=== PATIENT | female | born 1940 | race Caucasian/White ===

== ENCOUNTER 2017-08-14 15:51 | Emergency (ER) | payer MEDICARE ==
[~2017-08-14] VITALS: Ht 162.6 cm; Wt 98.9 kg
--- OUTSIDE RECORDS SUMMARY | 2017-08-14 15:54 | XMS REPORT ---
Author Author [facility] Address Unknown Phone Unavailable Care Team Providers Care Instrument And Control Technician Name Role Phone AISHA CHAN Unavailable Unavailable Problems This patient has no known problems. Allergies, Adverse Reactions, Alerts This patient has no known allergies or adverse reactions. Medications This patient has no known medications. Results Test Description Test Time Test Comments Text Results Atomic Results Result Comments POCT-GLUCOSE METER 2016-11-16 11:56:00 POC-GLUCOSE METER (BEAKER) (test xwcd=0317) 369 mg/dL 70-110 Notified BRENDA CORTEZ/ TESTED AT [address] [address] HEMOGLOBIN [id number] 11:51:00* Test Item Value Reference Range Comments HEMOGLOBIN A1C (BEAKER) (test zajt=188) 14.8 % 4.3-6.1 POCT-GLUCOSE [id number] 08:28:00* Test Item Value Reference Range Comments POC-GLUCOSE METER (BEAKER) (test zmnj=1008) 267 mg/dL 70-110 TESTED AT [address] [address] [id number] 07:24:00* Test Item Value Reference Range Comments PHOSPHORUS (BEAKER) (test bliv=258) 2.6 mg/dL 2.3-4.7 [id number] 07:24:00* Test Item Value Reference Range Comments MAGNESIUM (BEAKER) (test sqjg=490) 2.0 mg/dL 1.6-2.6 BASIC METABOLIC [id number] 07:24:00* Test Item Value Reference Range Comments SODIUM (BEAKER) (test twzk=890) 138 meq/L 136-145 POTASSIUM (BEAKER) (test gfpe=586) 4.1 meq/L 3.5-5.1 CHLORIDE (BEAKER) (test sgxi=051) 109 meq/L 98-107 CO2 (BEAKER) (test szjt=615) 22 meq/L 22-29 BLOOD UREA NITROGEN (BEAKER) (test jyvf=707) 13 mg/dL 7-21 CREATININE (CECY) (test uxym=374) 1.02 mg/dL 0.57-1.25 GLUCOSE RANDOM (CECY) (test ajdq=665) 267 mg/dL 70-105 CALCIUM (STACIEAKER) (test azkr=010) 8.6 mg/dL 8.4-10.2 EGFR (CECY) (test ytki=7184) 53 mL/min/1.73 sq m ESTIMATED GFR IS NOT ACCURATE CREATININE CLEARANCE IN PREDICTING GLOMERULAR FILTRATION RATE. ESTIMATED GFR IS NOT APPLICABLE FOR DIALYSIS PATIENTS. CREATINE KINASE (CK), TOTAL AND [id number] 07:24:00* Test Item Value Reference Range Comments CREATINE KINASE TOTAL (CECY) (test icui=397) 39 U/L 29-200 CREATINE KINASE-MB (CECY) (test ppkm=099) 1.2 ng/mL 0.0-6.6 CREATINE KINASE-MB INDEX (CECY) (test xcan=875) 3.1 % Effective 05/29/2014: CK-MB Reference Range ChangeNew: 0.0-6.6 Previous: 0.0- 4.9CK-MB Reference Range:<6.7 Normal6.7-10.0 Borderline>10.0 AbnormalTROPONIN [id number] 07:11:00* Test Item Value Reference Range Comments TROPONIN I (CECY) (test rqdz=206) < ng/mL 0.00-0.03 Effective 05/29/2014: Reference Range ChangeNew: 0.00-0.03 Previous 0.00- 0.15Troponin I (TnI) levels must be interpreted in the context of the presenting symptoms and the clinical findings. Elevated TnI levels indicate myocardial damage, but are not specific for ischemic heart disease. Elevated TnI levels are seen in patients with other cardiac conditions (including myocarditis and congestive heart failure), and slight TnI elevations occur in patients with other conditions, including sepsis, renal failure, acidosis, acute neurological disease, and persistent tachyarrhythmia.POCT-GLUCOSE [id number] 21:38:00* Test Item Value Reference Range Comments POC-GLUCOSE METER (CECY) (test qrhb=2941) 322 mg/dL 70-110 Notified BRENDA CORTEZ/ TESTED AT [facility] [address] [address] POCT-GLUCOSE [id number] 17:17:00* Test Item Value Reference Range Comments POC-GLUCOSE METER (BEAKER) (test ezmp=8652) 266 mg/dL 70-[address] [facility] [address] [address] BASIC METABOLIC [id number] 15:42:00* Test Item Value Reference Range Comments SODIUM (BEAKER) (test itxc=798) 137 meq/L 136-145 POTASSIUM (BEAKER) (test yooo=452) 4.1 meq/L 3.5-5.1 CHLORIDE (BEAKER) (test lgzp=499) 106 meq/L 98-107 CO2 (BEAKER) (test abrh=454) 21 meq/L 22-29 BLOOD UREA NITROGEN (BEAKER) (test zjps=992) 14 mg/dL 7-21 CREATININE (BEAKER) (test dcbi=771) 1.17 mg/dL 0.57-1.25 GLUCOSE RANDOM (BEAKER) (test ihig=370) 372 mg/dL 70-105 CALCIUM (BEAKER) (test ivyd=038) 8.6 mg/dL 8.4-10.2 EGFR (BEAKER) (test qxcm=4021) 45 mL/min/1.73 sq m ESTIMATED GFR IS NOT ACCURATE CREATININE CLEARANCE IN PREDICTING GLOMERULAR FILTRATION RATE. ESTIMATED GFR IS NOT APPLICABLE FOR DIALYSIS PATIENTS. CREATINE KINASE (CK), TOTAL AND [id number] 15:27:00* Test Item Value Reference Range Comments CREATINE KINASE TOTAL (BEAKER) (test posi=882) 51 U/L 29-200 CREATINE KINASE-MB (BEAKER) (test pmuh=416) 1.6 ng/mL 0.0-6.6 CREATINE KINASE-MB INDEX (BEAKER) (test yvov=022) 3.1 % Effective 05/29/2014: CK-MB Reference Range ChangeNew: 0.0-6.6 Previous: 0.0- 4.9CK-MB Reference Range:<6.7 Normal6.7-10.0 Borderline>10.0 AbnormalTROPONIN [id number] 15:27:00* Test Item Value Reference Range Comments TROPONIN I (BEAKER) (test eiuv=517) 0.01 ng/mL 0.00-0.03 Effective 05/29/2014: Reference Range ChangeNew: 0.00-0.03 Previous 0.00- 0.15Troponin I (TnI) levels must be interpreted in the context of the presenting symptoms and the clinical findings. Elevated TnI levels indicate myocardial damage, but are not specific for ischemic heart disease. Elevated TnI levels are seen in patients with other cardiac conditions (including myocarditis and congestive heart failure), and slight TnI elevations occur in patients with other conditions, including sepsis, renal failure, acidosis, acute neurological disease, and persistent tachyarrhythmia.CBC W/PLT COUNT & AUTO [id number] 14:49:00* Test Item Value Reference Range Comments WHITE BLOOD CELL COUNT (BEAKER) (test udcf=949) 6.6 K/ L 4.0-10.0 RED BLOOD CELL COUNT (BEAKER) (test soej=011) 3.99 M/ L 4.00-5.00 HEMOGLOBIN (BEAKER) (test vmng=328) 13.1 GM/DL 12.0-15.0 HEMATOCRIT (BEAKER) (test xyqi=938) 37.5 % 36.0-45.0 MEAN CORPUSCULAR VOLUME (BEAKER) (test wdwb=991) 94.1 fL 82.0-99.0 MEAN CORPUSCULAR HEMOGLOBIN (BEAKER) (test gbtj=409) 32.8 pg 27.0-33.0 MEAN CORPUSCULAR HEMOGLOBIN CONC (BEAKER) (test aarx=636) 34.9 GM/DL 32.0- 36.0 RED CELL DISTRIBUTION WIDTH (BEAKER) (test nirl=081) 14.1 % 10.3-14.2 PLATELET COUNT (BEAKER) (test anle=817) 210 K/CU MM 150-430 MEAN PLATELET VOLUME (BEAKER) (test zqia=110) 6.7 fL 6.5-10.5 NUCLEATED RED BLOOD CELLS (BEAKER) (test gtap=728) 0 /100 WBC 0-0 NEUTROPHILS RELATIVE PERCENT (BEAKER) (test uitc=522) 54 % LYMPHOCYTES RELATIVE PERCENT (BEAKER) (test wcyy=971) 36 % MONOCYTES RELATIVE PERCENT (BEAKER) (test iqnm=978) 7 % EOSINOPHILS RELATIVE PERCENT (BEAKER) (test ykve=725) 2 % BASOPHILS RELATIVE PERCENT (BEAKER) (test igbl=167) 1 % NEUTROPHILS ABSOLUTE COUNT (BEAKER) (test jzkh=022) 3.55 K/ L 1.80-8.00 LYMPHOCYTES ABSOLUTE COUNT (BEAKER) (test wyfb=836) 2.41 K/ L 1.48-4.50 MONOCYTES ABSOLUTE COUNT (BEAKER) (test jqvv=889) 0.45 K/ L 0.00-1.30 EOSINOPHILS ABSOLUTE COUNT (BEAKER) (test etcj=195) 0.16 K/ L 0.00-0.50 BASOPHILS ABSOLUTE COUNT (BEAKER) (test lzkx=492) 0.05 K/ L 0.00-0.20 0.00URINALYSIS W/ REFLEX URINE [id number] 13:22:00* Test Item Value Reference Range Comments COLOR (BEAKER) (test begu=521) Light Yellow CLARITY (BEAKER) (test xaok=496) Clear SPECIFIC GRAVITY UA (BEAKER) (test fiyz=561) 1.015 1.001-1.035 PH UA (BEAKER) (test wnew=846) 5.0 5.0-8.0 PROTEIN UA (BEAKER) (test otlm=705) Negative Negative GLUCOSE UA (BEAKER) (test ecny=913) >1000 mg/dL Negative KETONES UA (BEAKER) (test angf=571) Negative Negative BILIRUBIN UA (BEAKER) (test icdc=133) Negative Negative BLOOD UA (BEAKER) (test tdgg=556) Negative Negative NITRITE UA (BEAKER) (test mlug=822) Negative Negative LEUKOCYTE ESTERASE UA (BEAKER) (test rrbt=291) Negative Negative UROBILINOGEN UA (BEAKER) (test cvcd=821) 0.2 mg/dL 0.2-1.0 RBC UA (BEAKER) (test ekrp=698) < /HPF WBC UA (BEAKER) (test axrv=259) 2 /HPF MUCUS (BEAKER) (test hioq=3478) Rare SQUAMOUS EPITHELIAL (BEAKER) (test qcst=993) 1 /HPF SOURCE(BEAKER) (test hnea=7931) POCT-GLUCOSE [id number] 13:02:00* Test Item Value Reference Range Comments POC-GLUCOSE METER (BEAKER) (test aixi=3998) 367 mg/dL 70-110 Notified BRENDA CORTEZ/ TESTED AT [place] [id number] URINALYSIS WITHOUT [id number] 09:00:00* Test Item Value Reference Range Comments COLOR (BEAKER) (test yrqc=165) Light Yellow CLARITY (BEAKER) (test izer=341) Clear SPECIFIC GRAVITY UA (BEAKER) (test aoqc=717) 1.010 1.001-1.035 PH UA (BEAKER) (test ggva=737) 5.0 5.0-8.0 PROTEIN UA (BEAKER) (test fmuc=435) 30 mg/dL Negative GLUCOSE UA (BEAKER) (test unhi=843) >1000 mg/dL Negative KETONES UA (BEAKER) (test tbcq=782) Negative Negative BILIRUBIN UA (BEAKER) (test dxtd=371) Negative Negative BLOOD UA (BEAKER) (test mweg=578) Negative Negative NITRITE UA (BEAKER) (test vmfu=432) Negative Negative LEUKOCYTE ESTERASE UA (BEAKER) (test psdi=376) Negative Negative UROBILINOGEN UA (BEAKER) (test tkpp=215) 0.2 mg/dL 0.2-1.0 SOURCE(BEAKER) (test lmme=0706) POCT-GLUCOSE [id number] 08:09:00* Test Item Value Reference Range Comments POC-GLUCOSE METER (BEAKER) (test wonm=8484) 375 mg/dL 70-110 Notified BRENDA CORTEZ/ TESTED AT [place] [address] POCT-GLUCOSE [id number] 04:30:00* Test Item Value Reference Range Comments POC-GLUCOSE METER (BEAKER) (test fuuq=7347) 410 mg/dL 70-110 TESTED AT [place] [id number] BASIC METABOLIC [id number] 03:58:00* Test Item Value Reference Range Comments SODIUM (BEAKER) (test tdlx=372) 136 meq/L 136-145 POTASSIUM (BEAKER) (test fhhd=428) 3.6 meq/L 3.5-5.1 CHLORIDE (BEAKER) (test ppiw=905) 108 meq/L 98-107 CO2 (BEAKER) (test ivyi=773) 18 meq/L 22-29 BLOOD UREA NITROGEN (BEAKER) (test upln=557) 18 mg/dL 7-21 CREATININE (BEAKER) (test pevv=456) 1.11 mg/dL 0.57-1.25 GLUCOSE RANDOM (BEAKER) (test szsy=321) 225 mg/dL 70-105 CALCIUM (BEAKER) (test pflx=569) 8.4 mg/dL 8.4-10.2 EGFR (BEAKER) (test fhkp=2020) 48 mL/min/1.73 sq m ESTIMATED GFR IS NOT ACCURATE CREATININE CLEARANCE IN PREDICTING GLOMERULAR FILTRATION RATE. ESTIMATED GFR IS NOT APPLICABLE FOR DIALYSIS PATIENTS. BLOOD GAS, [id number] 02:41:00* Test Item Value Reference Range Comments PH VENOUS (BEAKER) (test zfsf=576) 7.37 7.32-7.42 PCO2 VENOUS (BEAKER) (test iutr=981) 44 mmHg 41-51 PO2 VENOUS (BEAKER) (test tuxr=668) 40 mmHg 25-40 O2 SATURATION VENOUS (BEAKER) (test tpso=457) 73.0 % 40.0-70.0 HCO3 VENOUS (BEAKER) (test ybzj=218) 25 mmol/L 21-29 BASE EXCESS VENOUS (BEAKER) (test zaaf=289) -0.8 mmol/L -2.0-3.0 PATIENT TEMPERATURE (BEAKER) (test juxj=2033) 37.0 C FIO2 (BEAKER) (test vnnp=6091) 21.0 % BASIC METABOLIC [id number] 02:13:00* Test Item Value Reference Range Comments SODIUM (BEAKER) (test gpbx=314) 132 meq/L 136-145 POTASSIUM (BEAKER) (test krno=747) 5.3 meq/L 3.5-5.1 Specimen moderately hemolyzed CHLORIDE (BEAKER) (test ihbe=128) 100 meq/L 98-107 CO2 (BEAKER) (test rnon=616) 18 meq/L 22-29 BLOOD UREA NITROGEN (BEAKER) (test drsw=338) 20 mg/dL 7-21 CREATININE (BEAKER) (test ljwz=852) 1.50 mg/dL 0.57-1.25 Specimen moderately hemolyzed GLUCOSE RANDOM (BEAKER) (test hejq=925) 489 mg/dL 70-105 CALCIUM (BEAKER) (test gifh=630) 9.1 mg/dL 8.4-10.2 EGFR (BEAKER) (test uzcr=2771) 34 mL/min/1.73 sq m ESTIMATED GFR IS NOT ACCURATE CREATININE CLEARANCE IN PREDICTING GLOMERULAR FILTRATION RATE. ESTIMATED GFR IS NOT APPLICABLE FOR DIALYSIS PATIENTS. TROPONIN [id number] 02:04:00* Test Item Value Reference Range Comments TROPONIN I (BEAKER) (test oeaz=923) 0.01 ng/mL 0.00-0.03 Effective 05/29/2014: Reference Range ChangeNew: 0.00-0.03 Previous 0.00- 0.15Troponin I (TnI) levels must be interpreted in the context of the presenting symptoms and the clinical findings. Elevated TnI levels indicate myocardial damage, but are not specific for ischemic heart disease. Elevated TnI levels are seen in patients with other cardiac conditions (including myocarditis and congestive heart failure), and slight TnI elevations occur in patients with other conditions, including sepsis, renal failure, acidosis, acute neurological disease, and persistent tachyarrhythmia.OSMOLALITY, [id number] 02:01:00* Test Item Value Reference Range Comments OSMOLALITY, SERUM (BEAKER) (test orep=686) 312 mOsm/kg 275-295 [id number] 01:57:00* Test Item Value Reference Range Comments MAGNESIUM (BEAKER) (test wuhn=096) 2.8 mg/dL 1.6-2.6 Specimen moderately hemolyzed [id number] 01:57:00* Test Item Value Reference Range Comments PHOSPHORUS (BEAKER) (test ygam=997) 3.0 mg/dL 2.3-4.7 Specimen moderately hemolyzed KETONE, [id number] 01:26:00* Test Item Value Reference Range Comments KETONES, BLOOD (BEAKER) (test yntz=8922) 0.9 mmol/L <0.4 CBC W/PLT COUNT & AUTO [id number] 00:52:00* Test Item Value Reference Range Comments WHITE BLOOD CELL COUNT (BEAKER) (test imfu=204) 6.9 K/ L 4.0-10.0 RED BLOOD CELL COUNT (BEAKER) (test ftzk=462) 4.63 M/ L 4.00-5.00 HEMOGLOBIN (BEAKER) (test ohnd=962) 15.5 GM/DL 12.0-15.0 HEMATOCRIT (BEAKER) (test lbai=174) 43.3 % 36.0-45.0 MEAN CORPUSCULAR VOLUME (BEAKER) (test hpub=920) 93.6 fL 82.0-99.0 MEAN CORPUSCULAR HEMOGLOBIN (BEAKER) (test owtj=271) 33.4 pg 27.0-33.0 MEAN CORPUSCULAR HEMOGLOBIN CONC (BEAKER) (test agxg=370) 35.7 GM/DL 32.0- 36.0 RED CELL DISTRIBUTION WIDTH (BEAKER) (test krgr=636) 14.3 % 10.3-14.2 PLATELET COUNT (BEAKER) (test nnud=568) 221 K/CU MM 150-430 MEAN PLATELET VOLUME (BEAKER) (test iody=305) 7.4 fL 6.5-10.5 NUCLEATED RED BLOOD CELLS (BEAKER) (test sxka=105) 0 /100 WBC 0-0 NEUTROPHILS RELATIVE PERCENT (BEAKER) (test xlwq=943) 51 % LYMPHOCYTES RELATIVE PERCENT (BEAKER) (test txie=449) 39 % MONOCYTES RELATIVE PERCENT (BEAKER) (test nkwq=956) 7 % EOSINOPHILS RELATIVE PERCENT (BEAKER) (test ajmn=107) 2 % BASOPHILS RELATIVE PERCENT (BEAKER) (test yfiz=052) 1 % NEUTROPHILS ABSOLUTE COUNT (BEAKER) (test gscj=270) 3.49 K/ L 1.80-8.00 LYMPHOCYTES ABSOLUTE COUNT (BEAKER) (test hteu=717) 2.65 K/ L 1.48-4.50 MONOCYTES ABSOLUTE COUNT (BEAKER) (test rlxl=310) 0.47 K/ L 0.00-1.30 EOSINOPHILS ABSOLUTE COUNT (BEAKER) (test orrw=667) 0.16 K/ L 0.00-0.50 BASOPHILS ABSOLUTE COUNT (BEAKER) (test ibcg=130) 0.10 K/ L 0.00-0.20 0.00
--- OUTSIDE RECORDS SUMMARY | 2017-08-14 15:54 | XMS REPORT | Clinical Summary ---
Author Author JAMES [employer] [facility] SystemsMad[facility]CareTreeSt[facility] Address Unknown Phone Unavailable Care Team Providers Care Patient Support Assistant Name Role Phone PCP Unavailable Allergies Active Allergy Reactions Severity Noted Date Comments Atorvastatin Calcium Other (See Comments) 11/14/2016 Vitamin D may have been low at the time. Choline Fenofibrate Other (See Comments) 11/14/2016 Atorvastatin 08/31/2014 Lisinopril 08/31/2014 cough Niacin Preparations 08/31/2014 Leg cramps Penicillins 08/31/2014 Pravastatin 08/31/2014 Waexufq-Dsi-Pyn Reductase 08/31/2014 Inhibitors Fenofibric Acid (Choline) 08/31/2014 Ezetimibe 08/31/2014 Current Medications Prescription Sig. Disp. Refills Start End Date Status Date aspirin 81 MG EC tablet Take 81 mg by mouth Active daily. nitroglycerin (NITROSTAT) Place 0.4 mg under the Active 0.4 MG SL tablet tongue every 5 (five) minutes as needed for Chest pain. Put 1 pill under tongue every 5min as needed for chest pain.No more than 3 doses in 15min.Call 911 if pain is unrelieved 5min after 1st dose clopidogrel (PLAVIX) 75 Take 75 mg by mouth Active mg tablet daily. alendronate (FOSAMAX) 35 Take 35 mg by mouth every Active MG tablet 7 days. Take in the morning with a full glass of water, on an empty stomach, and do not take anything else by mouth or lie down for the next 30 min. atenolol (TENORMIN) 25 MG Take 25 mg by mouth Active tablet daily. hydrochlorothiazide Take 25 mg by mouth every Active (HYDRODIURIL) 25 MG other day . tablet omega-3 acid ethyl esters Take 2 g by mouth 2 (two) Active (LOVAZA) 1 gram capsule times daily. omeprazole (PRILOSEC) 40 Take 40 mg by mouth Active MG capsule daily. cilostazol (PLETAL) 100 Take 100 mg by mouth 2 Active MG tablet (two) times daily. TiZANidine (ZANAFLEX) 4 Take 4 mg by mouth 3 Active MG capsule (three) times daily. losartan (COZAAR) 50 MG Take 50 mg by mouth Active tablet daily. venlafaxine (EFFEXOR-XR) Take 150 mg by mouth Active 150 MG 24 hr capsule daily. fluticasone (FLONASE) 50 2 sprays by Nasal route Active mcg/actuation nasal spray daily. furosemide (LASIX) 40 MG Take 40 mg by mouth Active tablet daily. gabapentin (NEURONTIN) Take 100 mg by mouth 3 Active 100 MG capsule (three) times daily. isosorbide mononitrate Take 30 mg by mouth Active (IMDUR) 30 MG 24 hr daily. tablet potassium chloride Take 10 mEq by mouth 2 Active (KLOR-CON) 10 MEQ CR (two) times daily. tablet ergocalciferol (VITAMIN Take 50,000 Units by Active D2) 50,000 unit capsule mouth twice a week. insulin glargine 100 Inject 20 Units 15 mL 0 11/17/19 Active unit/mL (3 mL) InPn subcutaneously every 17 morning. nystatin (MYCOSTATIN) Apply topically 2 (two) 30 g 0 11/17/19 Active 100,000 unit/gram powder times daily Apply under 17 18 breasts and groin. glimepiride (AMARYL) 2 MG Take 2 mg by mouth every 11/17/19 Discontin tablet morning before breakfast. 17 ued Active Problems Problem Noted Date Uncontrolled type 2 diabetes mellitus with hyperosmolarity without coma, 02/2017 without long-term current use of insulin ([facility]) Overview: a1c 14.8 (11/2016) Safia infection of genital region 11/16/2016 Type 2 diabetes mellitus with ketoacidosis without coma, without long-term 11/15/2016 current use of insulin ([facility]) CAD (coronary artery disease) 02/19/2015 Encounters Date Type Specialty Care Team Description 11/15/2016 [facility] Internal Medicine Tonja Harding Type 2 diabetes mellitus - Encounter MD Azam with ketoacidosis without 11/16/2016 Kade, Shawn Dominick, coma, without long-term MD current use of insulin Shaquille Weeks ([facility]) 11/15/2016 Orders Only General Internal Medicine after 08/13/2016 Social History Tobacco Use Types Packs/Day Years Used Date Former Smoker Comments: 16 years Alcohol Use Drinks/Week oz/Week Comments No Sex Assigned at Date Recorded Not on file Last Filed Vital Signs Vital Sign Reading Time Taken Blood Pressure 137/63 11/16/2016 11:23 AM CDT Pulse 81 11/16/2016 11:23 AM CDT Temperature 35.9 C (96.7 F) 11/16/2016 11:23 AM CDT Respiratory Rate 20 11/16/2016 11:23 AM CDT Oxygen Saturation 93% 11/16/2016 11:23 AM CDT Inhaled Oxygen - - Concentration Weight 95.3 kg (210 lb) 11/14/2016 11:21 PM CDT Height 162.6 cm (5' 4.02") 11/14/2016 11:21 PM CDT Body Mass Index 36.03 11/14/2016 11:21 PM CDT Plan of Treatment Not on file Procedures Procedure Name Priority Date/Time Associated Diagnosis Comments PLACE NEEDLE IN VEIN Routine 11/15/2016 Results for this 5:26 AM CDT procedure are in the results section. CRITICAL CARE Routine 11/15/2016 Results for this 5:26 AM CDT procedure are in the results section. after 08/13/2016 Results * POC-Glucose meter (11/16/2016 11:30 AM) Only the most recent of 7 results within the time period is included. Component Value Ref Range POC-Glucose Meter 369 (H)Comment: Notified RN /TESTED AT [facility] 70 - 110 mg/dL [address] [place], [place] [id number] Specimen [place]forming [place] [address] * Troponin I (11/16/2016 6:23 AM) Only the most recent of 3 results within the time period is included. Component Value Ref Range Troponin I <0.01 0.00 - 0.03 ng/mL Specimen Performing Laboratory Blood - Arm, Right [place] [id number] Narrative Effective 05/29/2014: Reference Range Change New: 0.00-0.03 Previous 0.00-0.15 Troponin I (TnI) levels must be interpreted in [...] failure, acidosis, acute neurological disease, and persistent tachyarrhythmia. * Phosphorus (11/16/2016 6:23 AM) Only the most recent of 2 results within the time period is included. Component Value Ref Range Phosphorus 2.6 2.3 - 4.7 mg/dL Specimen Performing Laboratory Blood - Arm, [place] [address] * Magnesium (11/16/2016 6:23 AM) Only the most recent of 2 results within the time period is included. Component Value Ref Range Magnesium 2.0 1.6 - 2.6 mg/dL Specimen Performing Laboratory Blood - Arm, [place] [address] * Hemoglobin A1c (11/16/2016 6:23 AM) Component Value Ref Range Hemoglobin A1C 14.8 (H) 4.3 - 6.1 % Specimen Performing Laboratory Blood - Arm, [place] [address] * Creatine Kinase (CK), Total and MB (11/16/2016 6:23 AM) Only the most recent of 2 results within the time period is included. Component Value Ref Range Total CK 39 29 - 200 U/L CK-MB 1.2 0.0 - 6.6 ng/mL MB Relative Index 3.1 % Specimen Performing Laboratory Blood - Arm, [address] [address] Narrative Effective 05/29/2014: CK-MB Reference Range Change New: 0.0-6.6Previous: 0.0-4.9 CK-MB Reference Range: <6.7Normal 6.7-10.0Borderline >10.0 Abnormal * Basic metabolic panel (11/16/2016 6:23 AM) Only the most recent of 4 results within the time period is included. Component Value Ref Range Sodium 138 136 - 145 meq/L Potassium 4.1 3.5 - 5.1 meq/L Chloride 109 (H) 98 - 107 meq/L CO2 22 22 - 29 meq/L BUN 13 7 - 21 mg/dL Creatinine 1.02 0.57 - 1.25 mg/dL Glucose 267 (H) 70 - 105 mg/dL Calcium 8.6 8.4 - 10.2 mg/dL EGFR 53Comment: ESTIMATED GFR IS NOT ACCURATE mL/min/1.73 sq m CREATININE CLEARANCE IN PREDICTING GLOMERULAR FILTRATION RATE. ESTIMATED GFR IS NOT APPLICABLE FOR DIALYSIS PATIENTS. Specimen Performing Laboratory Blood - Arm, Right [address] [address] * CBC with platelet count + automated diff (11/15/2016 2:39 PM) Only the most recent of 2 results within the time period is included. Component Value Ref Range WBC 6.6 4.0 - 10.0 K/ L RBC 3.99 (L) 4.00 - 5.00 M/ L Hemoglobin 13.1 12.0 - 15.0 GM/DL Hematocrit 37.5 36.0 - 45.0 % MCV 94.1 82.0 - 99.0 fL MCH 32.8 27.0 - 33.0 pg MCHC 34.9 32.0 - 36.0 GM/DL RDW 14.1 10.3 - 14.2 % Platelets 210 150 - 430 K/CU MM MPV 6.7 6.5 - 10.5 fL nRBC 0 0 - 0 /100 WBC % Neutros 54 % % Lymphs 36 % % Monos 7 % % Eos 2 % % Baso 1 % # Neutros 3.55 1.80 - 8.00 K/ L # Lymphs 2.41 1.48 - 4.50 K/ L # Monos 0.45 0.00 - 1.30 K/ L # Eos 0.16 0.00 - 0.50 K/ L # Baso 0.05 0.00 - 0.20 K/ L Specimen Performing Laboratory Blood - Line, Venous [address] [address] Narrative 0.00 * CBC with platelet count + automated diff (11/15/2016 2:39 PM) Only the most recent of 2 results within the time period is included. Specimen Performing Laboratory Blood Narrative The following orders were created for panel order CBC with platelet count + automated diff. Procedure Abnormality Status --------- - ------ CBC with platelet count ...[[id number]]AbnormalFinal result Please view results for these tests on the individual orders. * Urinalysis w/Microscopic + Reflex to Culture (11/15/2016 10:44 AM) Component Value Ref Range Color, UA Light Yellow Clarity, UA Clear Specific [place], UA 1.015 1.001 - 1.035 pH, UA 5.0 5.0 - 8.0 Protein, UA Negative Negative Glucose, UA >1000 mg/dL (A) Negative Ketones, UA Negative Negative Bilirubin, UA Negative Negative Blood, UA Negative Negative Nitrite, UA Negative Negative Leukocytes, UA Negative Negative Urobilinogen, UA 0.2 0.2 - 1.0 mg/dL RBC, UA <1 /HPF WBC, UA 2 /HPF Mucus Rare Squam Epithel, UA 1 /HPF Specimen Source Specimen Performing Laboratory Urine - Urine, [facility] Catch [address] [place] [address] * PIV Insertion (11/15/2016 5:26 AM) Narrative Tonja Harding MD 11/15/20165:26 AM History Chief Complaint Patient presents with Hyperglycemia HPI Comments: Went to OSH yesterday after a fall and told her BS was in the 400s., PCP told her to come today Patient is a 76 y.o. female presenting with hyperglycemia. The history is provided by the patient. HyperglycemiaThe onset of symptoms was 1 day ago. Severity:Severe Onset quality:Unable to specify Timing:Constant Progression:Unable to specify Chronicity:New Associated symptoms: no abdominal pain, no altered mental status, no blurred vision, no chest pain, no confusion, no dehydration, no diaphoresis, no dizziness, no dysuria, no fatigue, no fever, no increased appetite, no increased thirst, no malaise, no nausea, no polyuria, no shortness of breath, no syncope, no vomiting and no weakness Allergies Allergen Reactions Atorvastatin Calcium Other (See Comments) Vitamin D may have been low at the time. Choline Fenofibrate Other (See Comments) Lipitor [Atorvastatin] Lisinopril cough Niacin Preparations Leg cramps Penicillins Pravastatin Wgxfzok-Mgq-Xqz Reductase Inhibitors Trilipix [Fenofibric Acid (Choline)] Zetia [Ezetimibe] Past Medical History Diagnosis Date Diabetes mellitus (HCC) Hypertension Osteopenia Coronary artery disease Abdominal aortic ectasia (HCC) Depression Left anterior fascicular block PAD (peripheral artery disease) (HCC) PVC (premature ventricular contraction) BUCKY (obstructive sleep apnea) Fatty liver Hyperlipidemia BUCKY on CPAP CKD (chronic kidney disease) PVD (peripheral vascular disease) (HCC) Past Surgical History Procedure Laterality Date Vitrectomy,posterior Converted from SIS-12/08/2011 Coronary artery bypass graft Hysterectomy Eye surgery R eye Eyelid surg R & l cath Bilateral 02/19/2015 Procedure: R & L CATH;Surgeon: Brennon Bauer MD; Location: [facility];Service: Cardiology;Laterality: Bilateral; No family history on file. History Substance Use Topics Smoking status: Former Smoker Smokeless tobacco: Not on file Comment: 16years Alcohol Use: No Review of Systems Constitutional: Negative for fever, diaphoresis and fatigue. Eyes: Negative for blurred vision. Respiratory: Negative for shortness of breath. Cardiovascular: Negative for chest pain and syncope. Gastrointestinal: Negative for nausea, vomiting and abdominal pain. Endocrine: Negative for polydipsia and polyuria. Genitourinary: Negative for dysuria. Neurological: Negative for dizziness. Psychiatric/Behavioral: Negative for confusion. All other systems reviewed and are negative. Physical Exam BP 103/43 | Pulse 68 | Temp(Src) 97.8 F (36.6 C) (Oral) | Resp 20 | Ht 1.626 m (5' 4.02") | Wt 95.255 kg (210 lb) | BMI 36.03 kg/m2 | SpO2 95% Physical Exam Nursing note and vitals reviewed. Constitutional: She is oriented to person, place, and time. She appears well-developed and well-nourished. HENT: Head: Normocephalic and atraumatic. Dry oral mucosa Eyes: Conjunctivae and EOM are normal. Pupils are equal, round, and reactive to light. Right eye exhibits no discharge. Left eye exhibits no discharge. No scleral icterus. Neck: Normal range of motion. Neck supple. Cardiovascular: Normal rate, regular rhythm, normal heart sounds and intact distal pulses. No murmur heard. Pulmonary/Chest: Effort normal and breath sounds normal. No respiratory distress. Abdominal: Soft. Bowel sounds are normal. She exhibits no distension. There is no tenderness. There is no rebound and no guarding. Musculoskeletal: Normal range of motion. She exhibits no edema and no tenderness. Neurological: She is alert and oriented to person, place, and time. She has normal strength and normal reflexes. No cranial nerve deficit or sensory deficit. GCS eye subscore is 4. GCS verbal subscore is 5. GCS motor subscore is 6. Skin: Skin is dry. She is not diaphoretic. No pallor. Psychiatric: She has a normal mood and affect. Her behavior is normal. Neurologic Exam Mental Status Oriented to person, place, and time. Cranial Nerves CN III, IV, Pupils are equal, round, and reactive to light. Extraocular motions are normal. Motor Exam Strength Strength 5/5 throughout. Ortho Exam ED Course Critical Care Performed by: TONJA HARDING Authorized by: TONJA HARDING Total critical care time: 40 minutes Critical care time was exclusive of separately billable procedures and treating other patients. Critical care was necessary to treat or prevent imminent or life-threatening deterioration of the following conditions: metabolic crisis. Critical care was time spent personally by me on the following activities: development of treatment plan with patient or surrogate, evaluation of patient's response to treatment, discussions with consultants, examination of patient, obtaining history from patient or surrogate, ordering and performing treatments and interventions, ordering and review of laboratory studies, ordering and review of radiographic studies, pulse oximetry, re-evaluation of patient's condition and review of old charts. PIV Insertion Date/Time: 11/15/2016 5:24 AM Performed by: TONJA HARDING Authorized by: TONJA HARDING Preparation: Patient was prepped and draped in the usual sterile fashion. Indication: poor peripheral access. Location: left external jugular. Needle gauge: 18 Number of attempts: 1 Post-procedure: dressing applied Post-procedure CMS: normal MDM Number of Diagnoses or Management Options Type 2 diabetes mellitus with ketoacidosis without coma, without long-term current use of insulin (HCC): new and requires workup Amount and/or Complexity of Data Reviewed Clinical lab tests: ordered and reviewed Discuss the patient with other providers: yes Risk of Complications, Morbidity, and/or Mortality Presenting problems: high Diagnostic procedures: high Management options: high General comments: I provided medically necessary Critical Care on an emergent basis in order to prevent any sudden, clinically significant deterioration in her condition. Critical care time:____min It is my opinion that her clinical presentation, without appropriate emergent intervention has the potential to acutely impair one or more of her vital organ systems with a high probability of imminent deterioration in her condition. The time involved in the performance of separately reportable procedures or teaching time was not counted towards the critical care time that is documented here. Critical Care Total time providing critical care: 30-74 minutes Patient Progress Patient progress: improved Clinical Impression No diagnosis found. Discharge Medications Medication List ASK your doctor about these medications alendronate 35 MG tabletCommonly known as:FOSAMAX aspirin 81 MG EC tablet atenolol 25 MG tabletCommonly known as:TENORMIN cilostazol 100 MG tabletCommonly known as:PLETAL clopidogrel 75 mg tabletCommonly known as:PLAVIX fluticasone 50 mcg/actuation nasal sprayCommonly known as: FLONASE furosemide 40 MG tabletCommonly known as:LASIX gabapentin 100 MG capsuleCommonly known as:NEURONTIN glimepiride 2 MG tabletCommonly known as:AMARYL hydroCHLOROthiazide 25 MG tabletCommonly known as:HYDRODIURIL isosorbide mononitrate 30 MG 24 hr tabletCommonly known as: IMDUR losartan 50 MG tabletCommonly known as:COZAAR nitroglycerin 0.4 MG SL tabletCommonly known as:NITROSTAT omega-3 acid ethyl esters 1 gram capsuleCommonly known as: LOVAZA omeprazole 40 MG capsuleCommonly known as:PriLOSEC potassium chloride 10 MEQ CR tabletCommonly known as:KLOR-CON TiZANidine 4 MG capsuleCommonly known as:ZANAFLEX venlafaxine 150 MG 24 hr capsuleCommonly known as:EFFEXOR-XR VITAMIN D2 50,000 unit capsuleGeneric drug:ergocalciferol Plan Very mild DKA, AG closed with IVF and IV insulin X1 Discussed adm with Dr Kade Harding, Tonja Nascimento MD 11/15/16 0409 Procedure Note Mehdi Tonja Nascimento MD - 11/15/2016 4:06 AM CDT Formatting of this note may be different from the original. History Chief Complaint Patient presents with Hyperglycemia HPI Comments: Went to OSH yesterday after a fall and told her BS was in the 400s., PCP told her to come today Patient is a 76 y.o. female presenting with hyperglycemia. The history is provided by the patient. HyperglycemiaThe onset of symptoms was 1 day ago. Severity: Severe Onset quality: Unable to specify Timing: Constant Progression: Unable to specify Chronicity: New Associated symptoms: no abdominal pain, no altered mental status, no blurred vision, no chest pain, no confusion, no dehydration, no diaphoresis, no dizziness, no dysuria, no fatigue, no fever, no increased appetite, no increased thirst, no malaise, no nausea, no polyuria, no shortness of breath, no syncope, no vomiting and no weakness Allergies Allergen Reactions Atorvastatin Calcium Other (See Comments) Vitamin D may have been low at the time. Choline Fenofibrate Other (See Comments) Lipitor [Atorvastatin] Lisinopril cough Niacin Preparations Leg cramps Penicillins Pravastatin Aqcefjs-Rnw-Gno Reductase Inhibitors Trilipix [Fenofibric Acid (Choline)] Zetia [Ezetimibe] Past Medical History Diagnosis Date Diabetes mellitus (HCC) Hypertension Osteopenia Coronary artery disease Abdominal aortic ectasia (HCC) Depression Left anterior fascicular block PAD (peripheral artery disease) (HCC) PVC (premature ventricular contraction) BUCKY (obstructive sleep apnea) Fatty liver Hyperlipidemia BUCKY on CPAP CKD (chronic kidney disease) PVD (peripheral vascular disease) ([facility]) Past Surgical History Procedure Laterality Date Vitrectomy,posterior Converted from SIS-12/08/2011 Coronary artery bypass graft Hysterectomy Eye surgery R eye Eyelid surg R & l cath Bilateral 02/19/2015 Procedure: R & L CATH; Surgeon: Brennon Bauer MD; Location: [facility]; Service: Cardiology; Laterality: Bilateral; No family history on file. History Substance Use Topics Smoking status: Former Smoker Smokeless tobacco: Not on file Comment: 16 years Alcohol Use: No Review of Systems Constitutional: Negative for fever, diaphoresis and fatigue. Eyes: Negative for blurred vision. Respiratory: Negative for shortness of breath. Cardiovascular: Negative for chest pain and syncope. Gastrointestinal: Negative for nausea, vomiting and abdominal pain. Endocrine: Negative for polydipsia and polyuria. Genitourinary: Negative for dysuria. Neurological: Negative for dizziness. Psychiatric/Behavioral: Negative for confusion. All other systems reviewed and are negative. Physical Exam BP 103/43 | Pulse 68 | Temp(Src) 97.8 F (36.6 C) (Oral) | Resp 20 | Ht 1.626 m (5' 4.02") | Wt 95.255 kg (210 lb) | BMI 36.03 kg/m2 | SpO2 95% Physical Exam Nursing note and vitals reviewed. Constitutional: She is oriented to person, place, and time. She appears well- developed and well-nourished. HENT: Head: Normocephalic and atraumatic. Dry oral mucosa Eyes: Conjunctivae and EOM are normal. Pupils are equal, round, and reactive to light. Right eye exhibits no discharge. Left eye exhibits no discharge. No scleral icterus. Neck: Normal range of motion. Neck supple. Cardiovascular: Normal rate, regular rhythm, normal heart sounds and intact distal pulses. No murmur heard. Pulmonary/Chest: Effort normal and breath sounds normal. No respiratory distress. Abdominal: Soft. Bowel sounds are normal. She exhibits no distension. There is no tenderness. There is no rebound and no guarding. Musculoskeletal: Normal range of motion. She exhibits no edema and no tenderness. Neurological: She is alert and oriented to person, place, and time. She has normal strength and normal reflexes. No cranial nerve deficit or sensory deficit. GCS eye subscore is 4. GCS verbal subscore is 5. GCS motor subscore is 6. Skin: Skin is dry. She is not diaphoretic. No pallor. Psychiatric: She has a normal mood and affect. Her behavior is normal. Neurologic Exam Mental Status Oriented to person, place, and time. Cranial Nerves CN III, IV, Pupils are equal, round, and reactive to light. Extraocular motions are normal. Motor Exam Strength Strength 5/5 throughout. Ortho Exam ED Course Critical Care Performed by: TONJA HARDING Authorized by: TONJA HARDING Total critical care time: 40 minutes Critical care time was exclusive of separately billable procedures and treating other patients. Critical care was necessary to treat or prevent imminent or life-threatening deterioration of the following conditions: metabolic crisis. Critical care was time spent personally by me on the following activities: development of treatment plan with patient or surrogate, evaluation of patient' s response to treatment, discussions with consultants, examination of patient, obtaining history from patient or surrogate, ordering and performing treatments and interventions, ordering and review of laboratory studies, ordering and review of radiographic studies, pulse oximetry, re-evaluation of patient's condition and review of old charts. PIV Insertion Date/Time: 11/15/2016 5:24 AM Performed by: TONJA HARDING Authorized by: TONJA HARDING Preparation: Patient was prepped and draped in the usual sterile fashion. Indication: poor peripheral access. Location: left external jugular. Needle gauge: 18 Number of attempts: 1 Post-procedure: dressing applied Post-procedure CMS: normal MDM Number of Diagnoses or Management Options Type 2 diabetes mellitus with ketoacidosis without coma, without long-term current use of insulin (HCC): new and requires workup Amount and/or Complexity of Data Reviewed Clinical lab tests: ordered and reviewed Discuss the patient with other providers: yes Risk of Complications, Morbidity, and/or Mortality Presenting problems: high Diagnostic procedures: high Management options: high General comments: I provided medically necessary Critical Care on an emergent basis in order to prevent any sudden, clinically significant deterioration in her condition. Critical care time: ____ min It is my opinion that her clinical presentation, without appropriate emergent intervention has the potential to acutely impair one or more of her vital organ systems with a high probability of imminent deterioration in her condition. The time involved in the performance of separately reportable procedures or teaching time was not counted towards the critical care time that is documented here. Critical Care Total time providing critical care: 30-74 minutes Patient Progress Patient progress: improved Clinical Impression No diagnosis found. Discharge Medications Medication List ASK your doctor about these medications alendronate 35 MG tablet Commonly known as: FOSAMAX aspirin 81 MG EC tablet atenolol 25 MG tablet Commonly known as: TENORMIN cilostazol 100 MG tablet Commonly known as: PLETAL clopidogrel 75 mg tablet Commonly known as: PLAVIX fluticasone 50 mcg/actuation nasal spray Commonly known as: FLONASE furosemide 40 MG tablet Commonly known as: LASIX gabapentin 100 MG capsule Commonly known as: NEURONTIN glimepiride 2 MG tablet Commonly known as: AMARYL hydroCHLOROthiazide 25 MG tablet Commonly known as: HYDRODIURIL isosorbide mononitrate 30 MG 24 hr tablet Commonly known as: IMDUR losartan 50 MG tablet Commonly known as: COZAAR nitroglycerin 0.4 MG SL tablet Commonly known as: NITROSTAT omega-3 acid ethyl esters 1 gram capsule Commonly known as: LOVAZA omeprazole 40 MG capsule Commonly known as: PriLOSEC potassium chloride 10 MEQ CR tablet Commonly known as: KLOR-CON TiZANidine 4 MG capsule Commonly known as: ZANAFLEX venlafaxine 150 MG 24 hr capsule Commonly known as: EFFEXOR-XR VITAMIN D2 50,000 unit capsule Generic drug: ergocalciferol Plan Very mild DKA, AG closed with IVF and IV insulin X1 Discussed adm with Tonja Bedolla MD 11/15/16 0409 Tonja Harding MD 11/15/16 0566 * Critical Care (11/15/2016 5:26 AM) Narrative Tonja Harding MD 11/15/20165:26 AM History Chief Complaint Patient presents with Hyperglycemia HPI Comments: Went to OSH yesterday after a fall and told her BS was in the 400s., PCP told her to come today Patient is a 76 y.o. female presenting with hyperglycemia. The history is provided by the patient. HyperglycemiaThe onset of symptoms was 1 day ago. Severity:Severe Onset quality:Unable to specify Timing:Constant Progression:Unable to specify Chronicity:New Associated symptoms: no abdominal pain, no altered mental status, no blurred vision, no chest pain, no confusion, no dehydration, no diaphoresis, no dizziness, no dysuria, no fatigue, no fever, no increased appetite, no increased thirst, no malaise, no nausea, no polyuria, no shortness of breath, no syncope, no vomiting and no weakness Allergies Allergen Reactions Atorvastatin Calcium Other (See Comments) Vitamin D may have been low at the time. Choline Fenofibrate Other (See Comments) Lipitor [Atorvastatin] Lisinopril cough Niacin Preparations Leg cramps Penicillins Pravastatin Kalsjcu-Ovu-Wjt Reductase Inhibitors Trilipix [Fenofibric Acid (Choline)] Zetia [Ezetimibe] Past Medical History Diagnosis Date Diabetes mellitus (HCC) Hypertension Osteopenia Coronary artery disease Abdominal aortic ectasia (HCC) Depression Left anterior fascicular block PAD (peripheral artery disease) (HCC) PVC (premature ventricular contraction) BUCKY (obstructive sleep apnea) Fatty liver Hyperlipidemia BUCKY on CPAP CKD (chronic kidney disease) PVD (peripheral vascular disease) (HCC) Past Surgical History Procedure Laterality Date Vitrectomy,posterior Converted from SIS-12/08/2011 Coronary artery bypass graft Hysterectomy Eye surgery R eye Eyelid surg R & l cath Bilateral 02/19/2015 Procedure: R & L CATH;Surgeon: Brennon Bauer MD; Location: [facility];Service: Cardiology;Laterality: Bilateral; No family history on file. History Substance Use Topics Smoking status: Former Smoker Smokeless tobacco: Not on file Comment: 16years Alcohol Use: No Review of Systems Constitutional: Negative for fever, diaphoresis and fatigue. Eyes: Negative for blurred vision. Respiratory: Negative for shortness of breath. Cardiovascular: Negative for chest pain and syncope. Gastrointestinal: Negative for nausea, vomiting and abdominal pain. Endocrine: Negative for polydipsia and polyuria. Genitourinary: Negative for dysuria. Neurological: Negative for dizziness. Psychiatric/Behavioral: Negative for confusion. All other systems reviewed and are negative. Physical Exam BP 103/43 | Pulse 68 | Temp(Src) 97.8 F (36.6 C) (Oral) | Resp 20 | Ht 1.626 m (5' 4.02") | Wt 95.255 kg (210 lb) | BMI 36.03 kg/m2 | SpO2 95% Physical Exam Nursing note and vitals reviewed. Constitutional: She is oriented to person, place, and time. She appears well-developed and well-nourished. HENT: Head: Normocephalic and atraumatic. Dry oral mucosa Eyes: Conjunctivae and EOM are normal. Pupils are equal, round, and reactive to light. Right eye exhibits no discharge. Left eye exhibits no discharge. No scleral icterus. Neck: Normal range of motion. Neck supple. Cardiovascular: Normal rate, regular rhythm, normal heart sounds and intact distal pulses. No murmur heard. Pulmonary/Chest: Effort normal and breath sounds normal. No respiratory distress. Abdominal: Soft. Bowel sounds are normal. She exhibits no distension. There is no tenderness. There is no rebound and no guarding. Musculoskeletal: Normal range of motion. She exhibits no edema and no tenderness. Neurological: She is alert and oriented to person, place, and time. She has normal strength and normal reflexes. No cranial nerve deficit or sensory deficit. GCS eye subscore is 4. GCS verbal subscore is 5. GCS motor subscore is 6. Skin: Skin is dry. She is not diaphoretic. No pallor. Psychiatric: She has a normal mood and affect. Her behavior is normal. Neurologic Exam Mental Status Oriented to person, place, and time. Cranial Nerves CN III, IV, Pupils are equal, round, and reactive to light. Extraocular motions are normal. Motor Exam Strength Strength 5/5 throughout. Ortho Exam ED Course Critical Care Performed by: TONJA HARDING Authorized by: TONJA HARDING Total critical care time: 40 minutes Critical care time was exclusive of separately billable procedures and treating other patients. Critical care was necessary to treat or prevent imminent or life-threatening deterioration of the following conditions: metabolic crisis. Critical care was time spent personally by me on the following activities: development of treatment plan with patient or surrogate, evaluation of patient's response to treatment, discussions with consultants, examination of patient, obtaining history from patient or surrogate, ordering and performing treatments and interventions, ordering and review of laboratory studies, ordering and review of radiographic studies, pulse oximetry, re-evaluation of patient's condition and review of old charts. PIV Insertion Date/Time: 11/15/2016 5:24 AM Performed by: TONJA HARDING Authorized by: TONJA HARDING Preparation: Patient was prepped and draped in the usual sterile fashion. Indication: poor peripheral access. Location: left external jugular. Needle gauge: 18 Number of attempts: 1 Post-procedure: dressing applied Post-procedure CMS: normal MDM Number of Diagnoses or Management Options Type 2 diabetes mellitus with ketoacidosis without coma, without long-term current use of insulin (HCC): new and requires workup Amount and/or Complexity of Data Reviewed Clinical lab tests: ordered and reviewed Discuss the patient with other providers: yes Risk of Complications, Morbidity, and/or Mortality Presenting problems: high Diagnostic procedures: high Management options: high General comments: I provided medically necessary Critical Care on an emergent basis in order to prevent any sudden, clinically significant deterioration in her condition. Critical care time:____min It is my opinion that her clinical presentation, without appropriate emergent intervention has the potential to acutely impair one or more of her vital organ systems with a high probability of imminent deterioration in her condition. The time involved in the performance of separately reportable procedures or teaching time was not counted towards the critical care time that is documented here. Critical Care Total time providing critical care: 30-74 minutes Patient Progress Patient progress: improved Clinical Impression No diagnosis found. Discharge Medications Medication List ASK your doctor about these medications alendronate 35 MG tabletCommonly known as:FOSAMAX aspirin 81 MG EC tablet atenolol 25 MG tabletCommonly known as:TENORMIN cilostazol 100 MG tabletCommonly known as:PLETAL clopidogrel 75 mg tabletCommonly known as:PLAVIX fluticasone 50 mcg/actuation nasal sprayCommonly known as: FLONASE furosemide 40 MG tabletCommonly known as:LASIX gabapentin 100 MG capsuleCommonly known as:NEURONTIN glimepiride 2 MG tabletCommonly known as:AMARYL hydroCHLOROthiazide 25 MG tabletCommonly known as:HYDRODIURIL isosorbide mononitrate 30 MG 24 hr tabletCommonly known as: IMDUR losartan 50 MG tabletCommonly known as:COZAAR nitroglycerin 0.4 MG SL tabletCommonly known as:NITROSTAT omega-3 acid ethyl esters 1 gram capsuleCommonly known as: LOVAZA omeprazole 40 MG capsuleCommonly known as:PriLOSEC potassium chloride 10 MEQ CR tabletCommonly known as:KLOR-CON TiZANidine 4 MG capsuleCommonly known as:ZANAFLEX venlafaxine 150 MG 24 hr capsuleCommonly known as:EFFEXOR-XR VITAMIN D2 50,000 unit capsuleGeneric drug:ergocalciferol Plan Very mild DKA, AG closed with IVF and IV insulin X1 Discussed adm with Tonja Bedolla MD 11/15/16 2816 Procedure Note Tonja Harding MD - 11/15/2016 4:06 AM CDT Formatting of this note may be different from the original. History Chief Complaint Patient presents with Hyperglycemia HPI Comments: Went to OSH yesterday after a fall and told her BS was in the 400s., PCP told her to come today Patient is a 76 y.o. female presenting with hyperglycemia. The history is provided by the patient. HyperglycemiaThe onset of symptoms was 1 day ago. Severity: Severe Onset quality: Unable to specify Timing: Constant Progression: Unable to specify Chronicity: New Associated symptoms: no abdominal pain, no altered mental status, no blurred vision, no chest pain, no confusion, no dehydration, no diaphoresis, no dizziness, no dysuria, no fatigue, no fever, no increased appetite, no increased thirst, no malaise, no nausea, no polyuria, no shortness of breath, no syncope, no vomiting and no weakness Allergies Allergen Reactions Atorvastatin Calcium Other (See Comments) Vitamin D may have been low at the time. Choline Fenofibrate Other (See Comments) Lipitor [Atorvastatin] Lisinopril cough Niacin Preparations Leg cramps Penicillins Pravastatin Cykswuc-Aio-Gpr Reductase Inhibitors Trilipix [Fenofibric Acid (Choline)] Zetia [Ezetimibe] Past Medical History Diagnosis Date Diabetes mellitus (HCC) Hypertension Osteopenia Coronary artery disease Abdominal aortic ectasia (HCC) Depression Left anterior fascicular block PAD (peripheral artery disease) (HCC) PVC (premature ventricular contraction) BUCKY (obstructive sleep apnea) Fatty liver Hyperlipidemia BUCKY on CPAP CKD (chronic kidney disease) PVD (peripheral vascular disease) (HCC) Past Surgical History Procedure Laterality Date Vitrectomy,posterior Converted from SIS-12/08/2011 Coronary artery bypass graft Hysterectomy Eye surgery R eye Eyelid surg R & l cath Bilateral 02/19/2015 Procedure: R & L CATH; Surgeon: Brennon Bauer MD; Location: [facility]; Service: Cardiology; Laterality: Bilateral; No family history on file. History Substance Use Topics Smoking status: Former Smoker Smokeless tobacco: Not on file Comment: 16 years Alcohol Use: No Review of Systems Constitutional: Negative for fever, diaphoresis and fatigue. Eyes: Negative for blurred vision. Respiratory: Negative for shortness of breath. Cardiovascular: Negative for chest pain and syncope. Gastrointestinal: Negative for nausea, vomiting and abdominal pain. Endocrine: Negative for polydipsia and polyuria. Genitourinary: Negative for dysuria. Neurological: Negative for dizziness. Psychiatric/Behavioral: Negative for confusion. All other systems reviewed and are negative. Physical Exam BP 103/43 | Pulse 68 | Temp(Src) 97.8 F (36.6 C) (Oral) | Resp 20 | Ht 1.626 m (5' 4.02") | Wt 95.255 kg (210 lb) | BMI 36.03 kg/m2 | SpO2 95% Physical Exam Nursing note and vitals reviewed. Constitutional: She is oriented to person, place, and time. She appears well- developed and well-nourished. HENT: Head: Normocephalic and atraumatic. Dry oral mucosa Eyes: Conjunctivae and EOM are normal. Pupils are equal, round, and reactive to light. Right eye exhibits no discharge. Left eye exhibits no discharge. No scleral icterus. Neck: Normal range of motion. Neck supple. Cardiovascular: Normal rate, regular rhythm, normal heart sounds and intact distal pulses. No murmur heard. Pulmonary/Chest: Effort normal and breath sounds normal. No respiratory distress. Abdominal: Soft. Bowel sounds are normal. She exhibits no distension. There is no tenderness. There is no rebound and no guarding. Musculoskeletal: Normal range of motion. She exhibits no edema and no tenderness. Neurological: She is alert and oriented to person, place, and time. She has normal strength and normal reflexes. No cranial nerve deficit or sensory deficit. GCS eye subscore is 4. GCS verbal subscore is 5. GCS motor subscore is 6. Skin: Skin is dry. She is not diaphoretic. No pallor. Psychiatric: She has a normal mood and affect. Her behavior is normal. Neurologic Exam Mental Status Oriented to person, place, and time. Cranial Nerves CN III, IV, Pupils are equal, round, and reactive to light. Extraocular motions are normal. Motor Exam Strength Strength 5/5 throughout. Ortho Exam ED Course Critical Care Performed by: TONJA HARDING Authorized by: TONJA HARDING Total critical care time: 40 minutes Critical care time was exclusive of separately billable procedures and treating other patients. Critical care was necessary to treat or prevent imminent or life-threatening deterioration of the following conditions: metabolic crisis. Critical care was time spent personally by me on the following activities: development of treatment plan with patient or surrogate, evaluation of patient' s response to treatment, discussions with consultants, examination of patient, obtaining history from patient or surrogate, ordering and performing treatments and interventions, ordering and review of laboratory studies, ordering and review of radiographic studies, pulse oximetry, re-evaluation of patient's condition and review of old charts. PIV Insertion Date/Time: 11/15/2016 5:24 AM Performed by: TONJA HARDING Authorized by: TONJA HARDING Preparation: Patient was prepped and draped in the usual sterile fashion. Indication: poor peripheral access. Location: left external jugular. Needle gauge: 18 Number of attempts: 1 Post-procedure: dressing applied Post-procedure CMS: normal MDM Number of Diagnoses or Management Options Type 2 diabetes mellitus with ketoacidosis without coma, without long-term current use of insulin (HCC): new and requires workup Amount and/or Complexity of Data Reviewed Clinical lab tests: ordered and reviewed Discuss the patient with other providers: yes Risk of Complications, Morbidity, and/or Mortality Presenting problems: high Diagnostic procedures: high Management options: high General comments: I provided medically necessary Critical Care on an emergent basis in order to prevent any sudden, clinically significant deterioration in her condition. Critical care time: ____ min It is my opinion that her clinical presentation, without appropriate emergent intervention has the potential to acutely impair one or more of her vital organ systems with a high probability of imminent deterioration in her condition. The time involved in the performance of separately reportable procedures or teaching time was not counted towards the critical care time that is documented here. Critical Care Total time providing critical care: 30-74 minutes Patient Progress Patient progress: improved Clinical Impression No diagnosis found. Discharge Medications Medication List ASK your doctor about these medications alendronate 35 MG tablet Commonly known as: FOSAMAX aspirin 81 MG EC tablet atenolol 25 MG tablet Commonly known as: TENORMIN cilostazol 100 MG tablet Commonly known as: PLETAL clopidogrel 75 mg tablet Commonly known as: PLAVIX fluticasone 50 mcg/actuation nasal spray Commonly known as: FLONASE furosemide 40 MG tablet Commonly known as: LASIX gabapentin 100 MG capsule Commonly known as: NEURONTIN glimepiride 2 MG tablet Commonly known as: AMARYL hydroCHLOROthiazide 25 MG tablet Commonly known as: HYDRODIURIL isosorbide mononitrate 30 MG 24 hr tablet Commonly known as: IMDUR losartan 50 MG tablet Commonly known as: COZAAR nitroglycerin 0.4 MG SL tablet Commonly known as: NITROSTAT omega-3 acid ethyl esters 1 gram capsule Commonly known as: LOVAZA omeprazole 40 MG capsule Commonly known as: PriLOSEC potassium chloride 10 MEQ CR tablet Commonly known as: KLOR-CON TiZANidine 4 MG capsule Commonly known as: ZANAFLEX venlafaxine 150 MG 24 hr capsule Commonly known as: EFFEXOR-XR VITAMIN D2 50,000 unit capsule Generic drug: ergocalciferol Plan Very mild DKA, AG closed with IVF and IV insulin X1 Discussed adm with Tonja Bedolla MD 11/15/16 2512 Tonja Harding MD 11/15/16 1180 * Blood gas, venous (11/15/2016 2:33 AM) Component Value Ref Range pH, Freddy 7.37 7.32 - 7.42 pCO2, Freddy 44 41 - 51 mmHg pO2, Freddy 40 25 - 40 mmHg O2 Sat, Freddy 73.0 (H) 40.0 - 70.0 % HCO3, Freddy 25 21 - 29 mmol/L Base Excess, Freddy -0.8 -2.0 - 3.0 mmol/L Patient Temperature 37.0 C FIO2 21.0 % Specimen Performing Laboratory Blood - Line, [place] [address] * Urinalysis without Microscopic - Clean Catch (11/15/2016 2:25 AM) Component Value Ref Range Color, UA Light Yellow Clarity, UA Clear Specific [place], UA 1.010 1.001 - 1.035 pH, UA 5.0 5.0 - 8.0 Protein, UA 30 mg/dL (A) Negative Glucose, UA >1000 mg/dL (A) Negative Ketones, UA Negative Negative Bilirubin, UA Negative Negative Blood, UA Negative Negative Nitrite, UA Negative Negative Leukocytes, UA Negative Negative Urobilinogen, UA 0.2 0.2 - 1.0 mg/dL Specimen Source Specimen Performing Laboratory Urine - Urine, Clean [facility] Catch [address] [place] [id number] * ECG 12 lead (11/15/2016 12:26 AM) Specimen Performing Laboratory GE MUSE Narrative Ventricular Rate 70 BPM Atrial Rate 70 BPM P-R Interval 134 ms QRS Duration 108 ms Q-T Interval 386 ms QTC Calculation(Bazett) 416 ms P [place] 8 degrees R [place] -49 degrees T [place] -7 degrees Normal sinus rhythm Left anterior fascicular block Abnormal ECG When compared with ECG of 22-AUG-2008 17:08, No significant change was found Confirmed by Milagros BARRERA MICHAEL ([id number]) on 11/16/2016 7:08:47 AM Procedure Note Interface, External Ris In - 11/16/2016 7:08 AM CDT Ventricular Rate 70 BPM Atrial Rate 70 BPM P-R Interval 134 ms QRS Duration 108 ms Q-T Interval 386 ms QTC Calculation(Bazett) 416 ms P [place] 8 degrees R [place] -49 degrees T [place] -7 degrees Normal sinus rhythm Left anterior fascicular block Abnormal ECG When compared with ECG of 22-AUG-2008 17:08, No significant change was found Confirmed by Milagros BARRERA MICHAEL ([id number]) on 11/16/2016 7:08:47 AM * Osmolality, serum (11/15/2016 12:22 AM) Component Value Ref Range Osmolality Serum 312 (H) 275 - 295 mOsm/kg Specimen Performing Laboratory Blood [address] [address] * Ketones, serum (11/15/2016 12:22 AM) Component Value Ref Range Ketones, Blood 0.9 (H) <0.4 mmol/L Specimen Performing Laboratory Blood [address] [address] after 08/13/2016
[2017-08-14 18:16] VITALS: BP 172/90
== END 2017-08-14 18:22 | disposition home or self-care (01) ==
LOC: ER 15:51
DX: H57.12 Ocular pain, left eye (principal); H00.024 Hordeolum internum left upper eyelid; I10 Essential (primary) hypertension; E11.9 Type 2 diabetes mellitus without complications; I50.9 Heart failure, unspecified; Z95.1 Presence of aortocoronary bypass graft
CPT/HCPCS: 99282

== ENCOUNTER 2020-04-12 20:35 | Inpatient (IN) | payer MEDICARE ==
[~2020-04-12] VITALS: Ht 157.5 cm; Wt 72.7 kg
[2020-04-12] MEDS ORDERED: LEVOFLOXACIN 750MG/D5W 150ML 150 ML IV STA (20:40)
[2020-04-12] MEDS ORDERED: ONDANSETRON HCL INJ 2MG/ML 2ML 2 MG/ML VIAL IV STA (20:40)
[2020-04-12] MEDS ORDERED: KETOROLAC TROMETHAMINE 30 MG/ML VIAL IV STA (20:40)
[2020-04-12] MEDS ORDERED: SODIUM CHLORIDE 0.9% 1000ML 1,000 ML IV STA ×3 (20:40→22:15)
--- NOTE | 2020-04-12 20:44 | Emergency Department Note ---
History of Present Illnes History of Present Illness Chief Complaint: Abdominal Complaints History of Present Illness This is a 79 year old female with n/v since this AM. Per [employer] [facility], patient was in atrial fibrillation with Hr in the 90's with occ PVC's. Historian: Patient, Acquisitions Analyst/EMS Onset (how long ago): day(s) Radiation: Reports non-radiation Severity: moderate Onset quality: gradual Duration (how long): day(s) Timing of current episode: constant Progression: worsening Context: Reports recent illness Relieving factors: none Exacerbating factors: none Associated symptoms: Reports nausea/vomiting Past Medical/Family History Physician Review I have reviewed the patient's past medical and family history. Any updates have been documented here. Past Medical History Recent Fever: Yes Clinical Suspicion of Infectio: Yes Other Medical History: HIATAL HERNIA Other Surgery: LAMINECTOMY CATARACT Social History Smoking Cessation: Never Smoker Alcohol Use: None Any Illegal Drug Use: No Other Last Tetanus: NA Review of Systems Review of Systems Constitutional: Reports weakness EENTM: Reports no symptoms Cardiovascular: Reports no symptoms Respiratory: Reports no symptoms Gastrointestinal: Reports nausea, Reports vomiting Genitourinary: Reports no symptoms Musculoskeletal: Reports no symptoms Integumentary: Reports no symptoms Neurological: Reports no symptoms Psychological: Reports no symptoms Endocrine: Reports no symptoms Hematological/Lymphatic: Reports no symptoms Physical Exam Related Data Allergies: Coded Allergies: Penicillins (Verified Allergy, Mild, 08/14/17) Ultrema-Dvq-Frg Reductase Inhibitor (Verified Allergy, Mild, 08/14/17) Physical Exam CONSTITUTIONAL Constitutional: Present ill appearing HENT HENT: Present normocephalic, Present atraumatic, Present oropharynx clear/moist, Present nose normal HENT L/R: Present left ext ear normal, Present right ext ear normal EYES Eyes: Reports PERRL, Reports conjunctivae normal NECK Neck: Present ROM normal PULMONARY Pulmonary: Present effort normal, Present breath sounds normal CARDIOVASCULAR Cardiovascular: Present irregular rhythm, Present tachycardia GASTROINTESTINAL Abdominal: Present soft, Present nontender, Present bowel sounds normal GENITOURINARY Genitourinary: Present exam deferred SKIN Skin: Present warm, Present dry MUSCULOSKELETAL Musculoskeletal: Present ROM normal NEUROLOGICAL Neurological: Present alert, Present oriented x 3, Present no gross motor or sensory deficits PSYCHOLOGICAL Psychological: Present mood/affect normal, Present judgement normal Results Laboratory Lab results reviewed: Yes Laboratory comments Laboratory Tests Test 04/12/20 22:12 04/12/20 21:10 04/12/20 20:49 Urine Color Yellow (YELLOW) Urine Clarity Clear (CLEAR) Urine pH 7 (5 - 7) Urine Specific [place] 1.020 (1.010-1.025) Urine Protein Negative (NEGATIVE) Urine Glucose (UA) Negative (NEGATIVE) Urine Ketones Trace (NEGATIVE) Urine Blood Negative (NEGATIVE) Urine Nitrite Negative (NEGATIVE) Urine Bilirubin Small (NEGATIVE) Urine Urobilinogen 2 mg/dL (0.2 - 1) Urine Leukocyte Esterase Negative (NEGATIVE) Urine RBC 0-5 /HPF (0-5) Urine WBC 6-10 /HPF (0-5) Urine Epithelial Cells Few /LPF (NONE) Urine Bacteria Few /HPF (NONE) Urine Mucus Many (RARE) White Blood Count 12.98 x10e3/uL (4.8-10.8) Red Blood Count 4.36 x10e6/uL (3.6-5.1) Hemoglobin 13.4 g/dL (12.0-16.0) Hematocrit 39.9 % (34.2-44.1) Mean Corpuscular Volume 91.5 fL (81-99) Mean Corpuscular Hemoglobin 30.7 pg (28-32) Mean Corpuscular Hemoglobin Concent 33.6 g/dL (31-35) Red Cell Distribution Width 13.9 % (11.7-14.4) Platelet Count 164 x10e3/uL (140-360) Neutrophils (%) (Auto) 82.7 % (38.7-80.0) Lymphocytes (%) (Auto) 10.9 % (18.0-39.1) Monocytes (%) (Auto) 5.8 % (4.4-11.3) Eosinophils (%) (Auto) 0.0 % (0.0-6.0) Basophils (%) (Auto) 0.2 % (0.0-1.0) Neutrophils # (Auto) 10.7 (2.1-6.9) Lymphocytes # (Auto) 1.4 (1.0-3.2) Monocytes # (Auto) 0.8 (0.2-0.8) Eosinophils # (Auto) 0.0 (0.0-0.4) Basophils # (Auto) 0.0 (0.0-0.1) Absolute Immature Granulocyte (auto 0.05 x10e3/uL (0-0.1) Sodium Level 142 mmol/L (136-145) Potassium Level 3.7 mmol/L (3.5-5.1) Chloride Level 104 mmol/L (98-107) Carbon Dioxide Level 24 mmol/L (22-29) Anion Gap 17.7 mmol/L (8-16) Blood Urea Nitrogen 15 mg/dL (7-26) Creatinine 1.20 mg/dL (0.57-1.11) Estimat Glomerular Filtration Rate 44 ML/MIN (60-) BUN/Creatinine Ratio 13 (6-25) Glucose Level 169 mg/dL (74-118) Lactic Acid Level 3.3 mmol/L (0.5-2.0) Calcium Level 9.0 mg/dL (8.4-10.2) Total Bilirubin 2.2 mg/dL (0.2-1.2) Aspartate Amino Transf (AST/SGOT) 27 IU/L (5-34) Alanine Aminotransferase (ALT/SGPT) 14 IU/L (0-55) Alkaline Phosphatase 136 IU/L (40-150) Creatine Kinase 81 IU/L (29-168) Creatine Kinase MB 0.70 ng/mL (0-5.0) Troponin I 0.014 ng/mL (0-0.300) B-Type Natriuretic Peptide 803.5 pg/mL (0-100) Total Protein 6.4 g/dL (6.5-8.1) Albumin 3.0 g/dL (3.5-5.0) Globulin 3.4 g/dL (2.3-3.5) Albumin/Globulin Ratio 0.9 (0.8-2.0) Lipase 4 U/L (8-78) Imaging Imaging results reviewed: Yes Impressions [place] [address] Patient Name: SRAVAN TONY MR #: [id number] : 1940 Age/Sex: 79/F Req #: [id number] Adm Physician: FATOUMATA KELLER MD Ordered by: SANDRA RAWLS DO Report #: [id number] Location: [facility] Room/Bed: [place] [address] Procedure: [id number] CT/CT ABDOMEN/PELVIS W Exam Date: 04/12/20 Exam Time: 2138 REPORT STATUS: Signed EXAM: CT Abdomen and Pelvis WITH contrast INDICATION: Intractable nausea and vomiting COMPARISON: None. TECHNIQUE: Abdomen and pelvis were scanned utilizing a multidetector helical scanner from the lung base to the pubic symphysis after administration of IV contrast. Coronal and sagittal reformations were obtained. Routine protocol was performed. Scan was performed when during portal venous phase. IV CONTRAST: 100 mL of Isovue 370 ORAL CONTRAST: None COMPLICATIONS: None RADIATION DOSE: Total DLP: 743 mGy*cm Estimated effective dose: (DLP x 0.015 x size factor) mSv CTDIvol has been reviewed. It is below the limits set by the Radiation Protocol Committee (RPC). Dose modulation, iterative reconstruction, and/or weight based adjustment of the mA/kV was utilized to reduce the radiation dose to as low as reasonably achievable. FINDINGS: LINES and TUBES: Common bile duct stent, proximal tip at the biliary hepatic bifurcation M distal aspect of the ampulla.. LOWER THORAX: Small right pleural effusion. Mild cardiomegaly. Mitral annular calcifications. HEPATOBILIARY: No focal hepatic lesions. No biliary ductal dilation. Minimal pneumobilia. GALLBLADDER: Small layering calcified gallstone of the gallbladder fundus. No wall thickening. SPLEEN: Mild splenomegaly. Multiple benign calcified granulomata. PANCREAS: An ill-defined 5.2 cm hypodense pancreatic head mass encases the main portal vein and hepatic artery and common bile duct stent. Thin pancreatic body and tail are atrophic with 7 mm duct dilation.. ADRENALS: No adrenal nodules KIDNEYS/URETERS: Kidneys enhance symmetrically. Tiny hypodensity in the right kidney, likely benign. No hydronephrosis. No solid mass lesions. No stones. GI TRACT: Small sliding gastric hiatal hernia with mild distal esophageal wall thickening. No abnormal distention or evidence of bowel obstruction. Appendix is normal. PELVIC ORGANS/BLADDER: Hysterectomy. No adnexal masses. Urinary bladder unremarkable. LYMPH NODES: Slightly prominent subcentimeter celiac lymph nodes, and stranding/encasement of the hepatic artery. VESSELS: Main portal vein encased by a pancreatic head mass. Arterial calcifications. PERITONEUM / RETROPERITONEUM: No free air or fluid. BONES: Mild T12 vertebral body compression fracture, likely chronic.Advanced degenerative changes. Sternotomy wires. Healing right rib 8 fracture. SOFT TISSUES: Benign lower back/gluteal subcutaneous calcified granulomas.. IMPRESSION: 1. A 5.2 cm ill-defined pancreatic head mass encases the main portal vein, hepatic artery, and a common bile duct stent. The biliary duct dilation. Mild local peripancreatic/celiac adenopathy. 2. Small right pleural effusion with right basilar atelectasis. Moderate cardiomegaly and mitral annular calcific disease. 3. Small sliding gastric hiatal hernia with mild distal esophagitis. 4. Splenomegaly, suggestive of portal hypertension. 5. Mild T12 vertebral body compression fracture, likely chronic. Advanced degenerative changes in the spine. Signed by: Marcelo Mendoza DO on 04/12/2020 11:00 PM Dictated By: MARCELO MENDOZA DO 99 Transcribed By: AJAY on 04/12/202299 COPY TO: SANDRA RAWLS DO~ [place] [address] Patient Name: SRAVAN TONY MR #: [id number] : 1940 Age/Sex: 79/F Req #: [id number] Adm Physician: FATOUMATA KELLER MD Ordered by: SANDRA RAWLS DO Report #: [id number] Location: [facility] Room/Bed: [place] [address] Procedure: [id number] DX/CHEST SINGLE (PORTABLE) Exam Date: 04/12/20 Exam Time: 2149 REPORT STATUS: Signed EXAMINATION: CHEST SINGLE (PORTABLE) INDICATION: Nausea, vomiting, sepsis COMPARISON: Same day abdominal CT. FINDINGS: TUBES and LINES: None. LUNGS/PLEURA: Normal lung volumes. Right lower lung haziness is a small right pleural effusion per same-day CT. No consolidations. No pneumothorax. HEART AND MEDIASTINUM: Cardiac size is mildly enlarged. BONES AND SOFT TISSUES: No acute osseous lesion. Soft tissues are unremarkable. Sternotomy wires. Degenerative changes. UPPER ABDOMEN: No free air under the diaphragm. IMPRESSION: Mild cardiomegaly and pulmonary vascular congestion. Small right pleural effusion. Signed by: Marcelo Mendoza DO on 04/12/2020 11:01 PM Dictated By: MARCELO MENDOZA DO 00 Transcribed By: AJAY on 04/12/202300 COPY TO: SANDRA RAWLS DO~ Procedures 12 Lead ECG Interpretation ECG Interpretation : ECG: ECG 1 Demolition Expert: Interpreted by ED physician Date: Apr 12, 2020 Time: 20:58 Prior ECG tracings: reviewed Rhythm: atrial fibrillation BPM: 72 QRS axis: normal ST segments normal: No ST segment flattening: aVL T waves normal: No T wave inversion: V1-V6 Clinical Impression: abnormal ECG Critical Care Time Total Critical Care Time (min): 31 Critcal care necessary due to: cardiac failure, sepsis Critcal care time spent by me: develop tx plan w patient/surrogate, discussion w primary provider, evaluation patient response to tx, examination of patient, obtaining hx from patient/surrogate, order/perform tx or interventions, order/review laboratory studies, order/review radiographic studies, pulse oximetry, re-evaluation of patient condition Assessment & Plan Medical Decision Making MDM 79 yof presents presents with signs and symptoms concerning for sepsis . Blood cx x 2 and blood cx ordered with abx given. Lactic acid obtained and reviewed Assessment & Plan Final Impression: (1) Severe sepsis (2) Intractable nausea and vomiting (3) UTI (urinary tract infection) Depart Disposition: ADMITTED SANDRA RAWLS DO Apr 12, 2020 20:44
[2020-04-12] MEDS ORDERED: ASPIRIN 81 MG CHEW TAB PO ONE ×2 (20:45→21:30)
[2020-04-12] MEDS ORDERED: ACETAMINOPHEN 325 MG TAB PO ONE (21:00)
[2020-04-12] MEDS ORDERED: ACETAMINOPHEN 650 MG SUPP PR ONE ×2 (21:00)
[2020-04-12 21:02] LABS: BASOPHILS % 0.2 % (0.0-1.0); HEMATOCRIT 39.9 % (34.2-44.1); HEMOGLOBIN 13.4 g/dL (12.0-16.0); LYMPHOCYTES # (AUTO) 1.4 (1.0-3.2); LYMPHOCYTES % 10.9 % (18.0-39.1); MEAN CORPUSCULAR HEMOGLOBIN 30.7 pg (28-32); MEAN CORPUSCULAR HGB CONC 33.6 g/dL (31-35); MEAN CORPUSCULAR VOLUME 91.5 fL (81-99); MONOCYTES # (AUTO) 0.8 (0.2-0.8); MONOCYTES % 5.8 % (4.4-11.3); NEUTROPHILS # (AUTO) 10.7 (2.1-6.9); NEUTROPHILS % 82.7 % (38.7-80.0); PLATELET COUNT 164 x10e3/uL (140-360); RED BLOOD COUNT 4.36 x10e6/uL (3.6-5.1); RED CELL DISTRIBUTION WIDTH 13.9 % (11.7-14.4)
--- NOTE | 2020-04-12 21:03 | NUR ---
PT REFUSES TYLENOL SUPP, ER NOTIFIED, NEW ORDER RECEIVED
[2020-04-12 21:17] LABS: ALBUMIN/GLOBULIN RATIO 0.9 (0.8-2.0); ANION GAP 17.7 mmol/L (8-16); CREATININE, SERUM 1.2 mg/dL (0.57-1.11); POTASSIUM 3.7 mmol/L (3.5-5.1)
[2020-04-12 21:23] LABS: CREATINE KINASE MB 0.7 ng/mL (0-5.0)
[2020-04-12 21:25] LABS: B-TYPE NATRIURETIC PEPTIDE2 803.5 pg/mL (0-100)
[2020-04-12] MEDS ORDERED: ONDANSETRON HCL INJ 2MG/ML 2ML 2 MG/ML VIAL IV PRN (21:30)
[2020-04-12] MEDS ORDERED: MORPHINE SULFATE INJ 4 MG/ML INJ 1ML IV PRN (21:30)
--- OUTSIDE RECORDS SUMMARY | 2020-04-12 21:31 | XMS REPORT | Clinical Summary ---
Author Author JAMES Nestio [facility] Address Unknown Phone Unavailable Care Team Providers Care Injection Machine Operator Name Role Phone Nilton Kauffman MD PCP Unavailable Marita Chu 33 Unavailable Allergies Comments Active Allergy Reactions Severity Noted Date Vitamin D may have been low at the time. Atorvastatin Calcium Other (See 11/14/2016 Comments) Choline Fenofibrate Other (See 11/14/2016 Comments) Atorvastatin 08/31/2014 cough Lisinopril 08/31/2014 Leg cramps Niacin Preparations 08/31/2014 Penicillins 08/31/2014 Pravastatin 08/31/2014 Pokhgwr-Iyu-Xwe Reductase 08/31/2014 Inhibitors Fenofibric Acid (Choline) 08/31/2014 Ezetimibe 08/31/2014 Medications End Date Status Medication Sig Dispensed Refills Start Date Active aspirin 81 MG EC tablet Take 81 mg by 0 mouth daily. Active nitroglycerin (NITROSTAT) Place 0.4 mg 0 0.4 MG SL tablet under the tongue every 5 (five) minutes as needed for Chest pain. Put 1 pill under tongue every 5min as needed for chest pain.No more than 3 doses in 15min.Call 911 if pain is unrelieved 5min after 1st dose Active fluticasone (FLONASE) 50 2 sprays by 0 mcg/actuation nasal spray Nasal route daily. Active pantoprazole (PROTONIX) Take 40 mg by 0 40 MG tablet mouth daily. Active sertraline (ZOLOFT) 50 MG Take 50 mg by 0 tablet mouth daily. 09/13/2020 Active insulin glargine (LANTUS) Inject 10 15 mL 0 100 unit/mL (3 mL) InPn Units 0 subcutaneousl y every morning. 09/13/2020 Active insulin lispro (HUMALOG) Inject 5 10 mL 0 0 100 unit/mL injection Units 0 subcutaneousl y 3 (three) times daily as needed for High Blood Sugar (Take only if BG >150 before meals.). 09/13/2020 Active isosorbide mononitrate Take 0.5 0 02 (IMDUR) 30 MG 24 hr tablets (15 0 tablet mg total) by mouth daily Increase to 30 mg daily if SBP >160 or DBP >110 x 2 days.. 09/13/2020 Active mirtazapine (REMERON) 15 Take 1 tablet 0 09/13 MG tablet (15 mg total) 0 by mouth nightly. 09/13/2020 Active amiodarone (PACERONE) 200 Take 1 tablet 90 tablet 3 MG tablet (200 mg 0 total) by mouth daily. 09/13/2020 Active apixaban (ELIQUIS) 2.5 mg Take 1 tablet 180 tablet 3 Tab tablet (2.5 mg 0 total) by mouth 2 (two) times daily. 09/13/2020 Active metoprolol tartrate Take 1 tablet 180 tablet 3 (LOPRESSOR) 25 MG tablet (25 mg total) 0 by mouth 2 (two) times daily. Active furosemide (LASIX) 40 MG Take 40 mg by 0 tablet mouth daily. Active hydroCHLOROthiazide Take 25 mg by 0 (HYDRODIURIL) 25 MG mouth every tablet other day. 09/14/2019 Discontinued clopidogrel (PLAVIX) 75 Take 75 mg by 0 mg tablet mouth daily. 09/14/2019 Discontinued alendronate (FOSAMAX) 35 Take 35 mg by 0 MG tablet mouth every 7 days. Take in the morning with a full glass of water, on an empty stomach, and do not take anything else by mouth or lie down for the next 30 min. 09/14/2019 Discontinued atenolol (TENORMIN) 25 MG Take 25 mg by 0 tablet mouth daily. 09/06/2019 Discontinued hydrochlorothiazide Take 25 mg by 0 (HYDRODIURIL) 25 MG mouth every tablet other day . 10/08/2019 Discontinued omega-3 acid ethyl esters Take 2 g by 0 (LOVAZA) 1 gram capsule mouth 2 (two) times daily. 09/06/2019 Discontinued omeprazole (PRILOSEC) 40 Take 40 mg by 0 MG capsule mouth daily. 09/14/2019 Discontinued cilostazol (PLETAL) 100 Take 100 mg 0 MG tablet by mouth 2 (two) times daily. 09/14/2019 Discontinued TiZANidine (ZANAFLEX) 4 Take 4 mg by 0 MG capsule mouth every night as needed for Muscle spasms . 09/14/2019 Discontinued losartan (COZAAR) 50 MG Take 50 mg by 0 tablet mouth daily. 09/14/2019 Discontinued venlafaxine (EFFEXOR-XR) Take 150 mg 0 150 MG 24 hr capsule by mouth daily. 09/06/2019 Discontinued furosemide (LASIX) 40 MG Take 40 mg by 0 tablet mouth daily. 09/14/2019 Discontinued gabapentin (NEURONTIN) Take 100 mg 0 100 MG capsule by mouth 3 (three) times daily. 09/14/2019 Discontinued isosorbide mononitrate Take 30 mg by 0 (IMDUR) 30 MG 24 hr mouth 2 (two) tablet times daily . 09/14/2019 Discontinued potassium chloride Take 10 mEq 0 (KLOR-CON) 10 MEQ CR by mouth 2 tablet (two) times daily. 10/08/2019 Discontinued ergocalciferol (VITAMIN Take 50,000 0 D2) 50,000 unit capsule Units by mouth twice a week. 09/14/2019 Discontinued insulin glargine 100 Inject 20 15 mL 0 11/16 unit/mL (3 mL) InPn Units 7 subcutaneousl y every morning. 09/14/2019 Discontinued glimepiride (AMARYL) 2 MG Take 1 tablet 30 tablet 0 tablet (2 mg total) 0 by mouth daily with breakfast. 09/06/2019 Discontinued mirtazapine (REMERON) 15 Take 1 tablet 30 tablet 0 MG tablet (15 mg total) 0 by mouth nightly for 30 days. 09/14/2019 Discontinued busPIRone (BUSPAR) 15 MG Take 1 tablet 90 tablet 0 tablet (15 mg total) 0 by mouth 3 (three) times daily. 09/14/2019 Discontinued insulin lispro (HUMALOG) Inject 5 0 100 unit/mL injection Units subcutaneousl y 3 (three) times daily before meals. 10/08/2019 Discontinued ferrous sulfate 325 (65 Take 1 tablet 180 tablet 3 FE) MG tablet (325 mg 0 total) by mouth 2 (two) times daily. 09/24/2019 loperamide (IMODIUM) 2 mg Take 1 30 capsule 0 capsule capsule (2 mg 0 total) by mouth 4 (four) times daily as needed for Diarrhea for up to 10 days. 09/24/2019 nystatin (MYCOSTATIN) Take 5 mLs 200 mL 0 100,000 unit/mL (500,000 0 suspension Units total) by mouth 4 (four) times daily for 10 days. 09/24/2019 Magic Mouthwash (NO Swish and 90 mL 0 steroid) oral suspension spit 5 mLs 0 every 6 (six) hours as needed (mouth pain) for up to 10 days. 09/14/2019 Discontinued levoFLOXacin (LEVAQUIN) Take 1 tablet 2 tablet 0 750 MG tablet (750 mg 0 total) by mouth every other day for 4 days. 09/17/2019 Discontinued levoFLOXacin (LEVAQUIN) Take 1 tablet 1 tablet 0 750 MG tablet (750 mg 0 total) by mouth every other day for 1 dose. 09/19/2019 levoFLOXacin (LEVAQUIN) Take 1 tablet 1 tablet 0 750 MG tablet (750 mg 0 total) by mouth daily for 1 day. Active Problems Problem Noted Date Paroxysmal A-fib 10/27/2019 Epigastric pain 10/26/2019 Melena 10/26/2019 Recurrent right pleural effusion 10/04/2019 Dyspnea and respiratory abnormality 10/03/2019 Bacteremia due to Enterobacter species 09/12/2019 Encephalopathy in sepsis 09/12/2019 Coronary artery disease involving coronary bypass gra ft of [place] heart 09/12/2019 without angina pectoris Dysphagia 09/12/2019 Severe protein-calorie malnutrition 09/12/2019 Physical deconditioning 09/12/2019 Severe sepsis 09/11/2019 Acute metabolic encephalopathy 09/11/2019 Acute kidney injury superimposed on CKD 09/11/2019 Metabolic acidosis 09/11/2019 Atrial fibrillation with rapid ventricular response 09/08/2019 Demand ischemia of myocardium 09/08/2019 Thrombocytopenia 09/08/2019 Dehydration 09/06/2019 Hyperbilirubinemia 09/06/2019 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 Altered mental status 09/06/2019 Pancreatic adenocarcinoma 09/06/2019 Syncope and collapse 09/06/2019 Jaundice 08/16/2019 Type 2 diabetes mellitus with stage 3 chronic kidney disease, with 11/16/2016 long-term current use of insulin Overview: a1c 14.8 (11/2016) Jarek infection of genital region 11/16/2016 Type 2 diabetes mellitus with ketoacidosis without co ma, without long-term 11/15/2016 current use of insulin CAD (coronary artery disease) 02/19/2015 Encounters Care Team Description Date Type Specialty Megan Rock MD 10/27/2019 [facility] Lantig[facility] MD UPPER ENDOSCOPY 10/27/[address] [facility] [facility] Jeanna Witt Michelle, MD Naik, Gomez Tsai MD Epigastric pain (Primary Dx); Gastrointestinal hemorrhage, unspecified gastrointestinal hemorrhage type 10/26/2019 Emergency Cardiology - 10/28/2019 10/26/2019 Orders Only General Internal Tx dicine 10/26/2019 Travel 10/04/2019 Travel Pawan Hills MD Redfearn, Warren Erick, DO Warren, America A A Lentz, MD Zhou, Yang, MD Dyspnea and respiratory abnormality (Violeta ag Dx); Coronary artery disease involving coronary bypass graft of [place] heart without angina pectoris; Pleural effusion; Type 2 diabetes mellitus with stage 3 chronic kidney disease, with long-term current use of insulin (HCC); Hypertension, unspecified type 10/03/2019 [facility] General Internal Tx dicine - Encounter 10/09/2019 10/03/2019 Travel aCde Gaming MD Pleural effusion 10/02/2019 Hospital Radiology Encounter Cade Gaming MD Pleural effusion (Primary Dx) 09/29/2019 Outside Orders Central Scheduling 09/06/2019 Orders Only General Internal Tx dicine Tomi, MD Shirlene Kenyon Tuyen V., MD Redfearn, Warren Erick, DO Ochoa, Jose Maria IV, MD Diabetic ketosis (HCC) (Primary Dx); Dehydration; Hyperbilirubinemia; Altered mental status, unspecified altered mental status type; Pancreatic mass; Type 2 diabetes mellitus with stage 3 chronic kidney disease, with long-term current use of insulin (HCC) 09/05/2019 Hospital Cardiology - Encounter 09/17/2019 09/05/2019 Travel Malick Garcia CRNA 08/18/2019 Anesthesia Gastroenterology Event Teagan Rock MD UPPER ENDOSCOPY,ULTRASOUND 08/18/2019 Surgery Gastroenterology Grzegorz Mcfadden, Skyla Gardner MD Yakoob, Tasneem Paliwala, MD Jaundice (Primary Dx) 08/16/2019 Hospital Transplant - Encounter 08/19/2019 08/16/2019 Travel after 04/12/2019 Family History Medical History Relation Name Comments Diabetes Mother Diabetes Sister Relation Name Status Comments Mother Sister Social History Date Tobacco Use Types Packs/Day Years Used Quit: 07/12/1998 Former Smoker Cigarettes 1 40 Smokeless Tobacco: Never Used Alcohol Use Drinks/Week oz/Week Comments No Sex Assigned at Date Recorded Not on file Industry Job Start Date Occupation Not on file Not on file Not on file Travel End Travel History Travel Start No recent travel history available. Last Filed Vital Signs Time Taken Vital Sign Reading 10/28/2019 7:00 AM CDT Blood Pressure 127/59 10/28/2019 7:00 AM CDT Pulse 64 10/28/2019 7:00 AM CDT Temperature 36.7 C (98 F) 10/28/2019 7:00 AM CDT Respiratory Rate 18 10/28/2019 7:00 AM CDT Oxygen Saturation 93% 09/09/2019 10:43 PM CHARGE POSTER Inhaled Oxygen 40% Concentration 10/26/2019 6:13 PM CDT Weight 83 kg (183 lb) 10/26/2019 6:13 PM CDT Height 163 cm (5' 4.17") 10/26/2019 6:13 PM CDT Body Mass Index 31.24 Plan of Treatment Health Maintenance Due Date Last Done Comments DIABETIC EYE EXAM 1950 DIABETIC FOOT EXAM 1950 MEDICARE ANNUAL WELLNESS 02/11/2012 (YEAR 2 or FIRST YEAR if no IPPE) HEMOGLOBIN A1C 03/06/2020 09/06/2019, 017 INFLUENZA VACCINE (#1) 2020 05/02/2019, , 03/01/2017, Additional history exists URINE MICROALBUMIN 10/22/2020 10/23/2019, 019, 09/22/2018, Additional history exists PNEUMOCOCCAL 65+ Completed 05/10/2014, 013, 04/17/2005 LOW/MEDIUM RISK Implants Device Identifier Shelf Expiration Date Model / Serial / L ot Implanted Type Area Manufactur er 7053 / / Stent Bili Rx [id number] IMPLANTS [employer]MAR [employer]ON - [id number] SCI:ENDO Implanted: Qty: 1 on 08/18/2019 by Teagan Rock MD Procedures Comments Procedure Name Priority Date/Time Associated Diag nosis REPORT OF PROCEDURE - 10/30/2019 ENDOSCOPY SCAN 9:50 AM CDT RHYTHM STRIP - SCAN 10/30/2019 9:50 AM CDT POCT-GLUCOSE METER Routine 10/28/2019 6:14 AM CDT CBC W/PLT COUNT & AUTO Routine 10/28/2019 DIFFERENTIAL 5:53 AM CDT BASIC METABOLIC PANEL (7) Routine 10/28/2019 5:53 AM CDT CBC W/PLT COUNT & AUTO Routine 10/28/2019 DIFFERENTIAL 5:53 AM CDT POCT-GLUCOSE METER Routine 10/28/2019 12:06 AM CDT URINALYSIS W/ REFLEX Routine 10/27/2019 URINE CULTURE 9:31 PM CDT OSMOLALITY, URINE Routine 10/27/2019 9:31 PM CDT CREATININE, RANDOM URINE Routine 10/27/2019 9:31 PM CDT POCT-GLUCOSE METER Routine 10/27/2019 5:42 PM CDT POCT-GLUCOSE METER Routine 10/27/2019 1:30 PM CDT REPORT OF PROCEDURE - 10/27/2019 ENDOSCOPY URL 12:06 PM CDT UPPER ENDOSCOPY 10/27/2019 Melena 11:30 AM CDT POCT-GLUCOSE METER Routine 10/27/2019 8:21 AM CDT HEMOGLOBIN AND HEMATOCRIT Routine 10/27/2019 3:27 AM CDT TROPONIN I Routine 10/27/2019 3:27 AM CDT PT/APTT Routine 10/27/2019 3:27 AM CDT BASIC METABOLIC PANEL (7) Routine 10/27/2019 3:27 AM CDT HEMOGLOBIN AND HEMATOCRIT Routine 10/27/2019 1:17 AM CDT POCT-GLUCOSE METER Routine 10/26/2019 11:34 PM CDT TROPONIN I STAT 10/26/2019 11:21 PM CDT OCCULT BLOOD, STOOL STAT 10/26/2019 7:18 PM CDT ECG 12-LEAD STAT 10/26/2019 7:00 PM CDT XR ABDOMEN 2 VIEWS FLAT STAT 10/26/2019 AND UPRIGHT 6:30 PM CDT XR CHEST 1 VIEW STAT 10/26/2019 PORTABLE/BEDSIDE 6:30 PM CDT CBC W/PLT COUNT & AUTO STAT 10/26/2019 DIFFERENTIAL 6:24 PM CDT HEPATIC FUNCTION PANEL STAT 10/26/2019 6:24 PM CDT LIPASE STAT 10/26/2019 6:24 PM CDT PT/APTT STAT 10/26/2019 6:24 PM CDT TROPONIN I STAT 10/26/2019 6:24 PM CDT BASIC METABOLIC PANEL (7) STAT 10/26/2019 6:24 PM CDT CBC W/PLT COUNT & AUTO STAT 10/26/2019 DIFFERENTIAL 6:24 PM CDT RHYTHM STRIP - SCAN 10/11/2019 12:21 PM CDT REPORT OF PROCEDURE - 10/10/2019 ENDOSCOPY SCAN 10:41 AM CDT RHYTHM STRIP - SCAN 10/10/2019 10:41 AM CDT POCT-GLUCOSE METER Routine 10/09/2019 7:21 AM CDT POCT-GLUCOSE METER Routine 10/08/2019 8:10 PM CDT POCT-GLUCOSE METER Routine 10/08/2019 4:26 PM CDT POCT-GLUCOSE METER Routine 10/08/2019 11:54 AM CDT POCT-GLUCOSE METER Routine 10/08/2019 6:59 AM CDT POCT-GLUCOSE METER Routine 10/07/2019 8:15 PM CDT POCT-GLUCOSE METER Routine 10/07/2019 4:26 PM CDT POCT-GLUCOSE METER Routine 10/07/2019 12:18 PM CDT POCT-GLUCOSE METER Routine 10/07/2019 6:55 AM CDT CBC W/PLT COUNT & AUTO Routine 10/07/2019 DIFFERENTIAL 3:58 AM CDT BASIC METABOLIC PANEL (7) Routine 10/07/2019 3:58 AM CDT CBC W/PLT COUNT & AUTO Routine 10/07/2019 DIFFERENTIAL 3:[address] CHEST WITHOUT IV Routine 10/06/2019 CONTRAST 9:56 PM CDT POCT-GLUCOSE METER Routine 10/06/2019 8:06 PM CDT POCT-GLUCOSE METER Routine 10/06/2019 4:49 PM CDT POCT-GLUCOSE METER Routine 10/06/2019 12:11 PM CDT POCT-GLUCOSE METER Routine 10/06/2019 7:04 AM CDT BASIC METABOLIC PANEL (7) Routine 10/06/2019 4:14 AM CDT POCT-GLUCOSE METER Routine 10/05/2019 9:18 PM CDT POCT-GLUCOSE METER Routine 10/05/2019 4:57 PM CDT POCT-GLUCOSE METER Routine 10/05/2019 12:17 PM CDT POCT-GLUCOSE METER Routine 10/05/2019 7:59 AM CDT CBC W/PLT COUNT & AUTO Routine 10/05/2019 DIFFERENTIAL 4:04 AM CDT CBC W/PLT COUNT & AUTO Routine 10/05/2019 DIFFERENTIAL 4:04 AM CDT PROTHROMBIN TIME/INR Routine 10/05/2019 4:04 AM CDT BASIC METABOLIC PANEL (7) Routine 10/05/2019 4:04 AM CDT POCT-GLUCOSE METER Routine 10/04/2019 8:48 PM CDT POCT-GLUCOSE METER Routine 10/04/2019 4:05 PM CDT IR TUNNELED CATH STAT 10/04/2019 INTRAPERITONEAL 12:16 PM CDT POCT-GLUCOSE METER Routine 10/04/2019 9:18 AM CDT CBC W/PLT COUNT & AUTO Routine 10/04/2019 DIFFERENTIAL 3:49 AM CDT TROPONIN I Routine 10/04/2019 3:49 AM CDT CBC W/PLT COUNT & AUTO Routine 10/04/2019 DIFFERENTIAL 3:49 AM CDT BASIC METABOLIC PANEL (7) Routine 10/04/2019 3:49 AM CDT POCT-GLUCOSE METER Routine 10/04/2019 12:10 AM CDT CBC W/PLT COUNT & AUTO STAT 10/03/2019 DIFFERENTIAL 7:57 PM CDT CBC W/PLT COUNT & AUTO STAT 10/03/2019 DIFFERENTIAL 7:57 PM CDT LACTIC ACID, VENOUS STAT 10/03/2019 7:20 PM CDT PT/APTT STAT 10/03/2019 7:20 PM CDT TROPONIN I STAT 10/03/2019 7:20 PM CDT B-TYPE NATRIURETIC FACTOR STAT 10/03/2019 (BNP) 6:58 PM CDT TROPONIN I STAT 10/03/2019 6:58 PM CDT MAGNESIUM STAT 10/03/2019 6:58 PM CDT BASIC METABOLIC PANEL (7) STAT 10/03/2019 6:58 PM CDT XR CHEST 1 VIEW STAT 10/03/2019 PORTABLE/BEDSIDE 6:46 PM CDT ECG 12-LEAD STAT 10/03/2019 6:14 PM CDT IR TUNNELED DRAINAGE Routine 10/02/2019 Pleural e ffusion CATHETER PLACEMENT 5:20 PM CDT CBC W/PLT COUNT & AUTO Routine 10/02/2019 DIFFERENTIAL 10:23 AM CDT APTT Routine 10/02/2019 10:23 AM CDT PROTHROMBIN TIME/INR Routine 10/02/2019 10:23 AM CDT CBC W/PLT COUNT & AUTO Routine 10/02/2019 DIFFERENTIAL 10:23 AM CDT RHYTHM STRIP - SCAN 09/21/2019 12:31 PM CDT RHYTHM STRIP - SCAN 09/19/2019 7:50 AM CDT REPORT OF PROCEDURE - 09/19/2019 ENDOSCOPY SCAN 7:50 AM CDT PROTEIN, TOTAL, PLEURAL Routine 09/17/2019 FLUID 4:36 PM CDT LACTATE DEHYDROGENASE Routine 09/17/2019 (LD), PLEURAL FLUID 4:36 PM CDT POCT-GLUCOSE METER Routine 09/17/2019 12:53 PM CDT POCT-GLUCOSE METER Routine 09/17/2019 8:59 AM CDT CBC W/PLT COUNT & AUTO Routine 09/17/2019 DIFFERENTIAL 5:15 AM CDT CBC W/PLT COUNT & AUTO Routine 09/17/2019 DIFFERENTIAL 5:15 AM CDT COMPREHENSIVE METABOLIC Routine 09/17/2019 PANEL 5:15 AM CDT POCT-GLUCOSE METER Routine 09/16/2019 10:17 PM CHARGE POSTER POCT-GLUCOSE METER Routine 09/16/2019 6:12 PM CHARGE POSTER POCT-GLUCOSE METER Routine 09/16/2019 12:32 PM CHARGE POSTER BODY FLUID CULTURE + GRAM Routine 09/16/2019 STAIN 12:19 PM CHARGE POSTER BODY FLUID CELL COUNT Routine 09/16/2019 WITH DIFFERENTIAL 12:19 PM CHARGE POSTER CYTOLOGY AP Routine 09/16/2019 12:18 PM CHARGE POSTER XR CHEST 1 VIEW STAT 09/16/2019 PORTABLE/BEDSIDE 11:58 AM CHARGE POSTER POCT-GLUCOSE METER Routine 09/16/2019 7:35 AM CHARGE POSTER CBC W/PLT COUNT & AUTO Routine 09/16/2019 DIFFERENTIAL 3:00 AM CHARGE POSTER BASIC METABOLIC PANEL (7) Routine 09/16/2019 3:00 AM CHARGE POSTER PROTHROMBIN TIME/INR Routine 09/16/2019 3:00 AM CHARGE POSTER CBC W/PLT COUNT & AUTO Routine 09/16/2019 DIFFERENTIAL 3:00 AM CHARGE POSTER POCT-GLUCOSE METER Routine 09/15/2019 9:43 PM CHARGE POSTER POCT-GLUCOSE METER Routine 09/15/2019 5:46 PM CHARGE POSTER POCT-GLUCOSE METER Routine 09/15/2019 12:29 PM CHARGE POSTER POCT-GLUCOSE METER Routine 09/15/2019 9:26 AM CHARGE POSTER POCT-GLUCOSE METER Routine 09/14/2019 9:50 PM CHARGE POSTER XR CHEST 1 VIEW Routine 09/14/2019 PORTABLE/BEDSIDE 6:51 PM CHARGE POSTER POCT-GLUCOSE METER Routine 09/14/2019 5:59 PM CHARGE POSTER POCT-GLUCOSE METER Routine 09/14/2019 12:38 PM CHARGE POSTER POCT-GLUCOSE METER Routine 09/14/2019 8:11 AM CHARGE POSTER (CELLAVISION MANUAL DIFF) Routine 09/14/2019 4:17 AM CHARGE POSTER CBC W/PLT COUNT & AUTO Routine 09/14/2019 DIFFERENTIAL 4:17 AM CHARGE POSTER BASIC METABOLIC PANEL (7) Routine 09/14/2019 4:17 AM CHARGE POSTER HEPATIC FUNCTION PANEL Routine 09/14/2019 4:17 AM CHARGE POSTER CBC W/PLT COUNT & AUTO Routine 09/14/2019 DIFFERENTIAL 4:17 AM CHARGE POSTER POCT-GLUCOSE METER Routine 09/13/2019 9:52 PM CHARGE POSTER POCT-GLUCOSE METER Routine 09/13/2019 5:20 PM CHARGE POSTER POCT-GLUCOSE METER Routine 09/13/2019 11:41 AM CHARGE POSTER POCT-GLUCOSE METER Routine 09/13/2019 7:49 AM CHARGE POSTER (CELLAVISION MANUAL DIFF) Routine 09/13/2019 4:09 AM CHARGE POSTER CBC W/PLT COUNT & AUTO Routine 09/13/2019 DIFFERENTIAL 4:09 AM CHARGE POSTER BASIC METABOLIC PANEL (7) Routine 09/13/2019 4:09 AM CHARGE POSTER HEPATIC FUNCTION PANEL Routine 09/13/2019 4:09 AM CHARGE POSTER CBC W/PLT COUNT & AUTO Routine 09/13/2019 DIFFERENTIAL 4:09 AM CHARGE POSTER POCT-GLUCOSE METER Routine 09/12/2019 10:08 PM CHARGE POSTER POCT-GLUCOSE METER Routine 09/12/2019 5:20 PM CHARGE POSTER POCT-GLUCOSE METER Routine 09/12/2019 12:49 PM CHARGE POSTER POCT-GLUCOSE METER Routine 09/12/2019 8:06 AM CHARGE POSTER (CELLAVISION MANUAL DIFF) Routine 09/12/2019 4:49 AM CHARGE POSTER CBC W/PLT COUNT & AUTO Routine 09/12/2019 DIFFERENTIAL 4:49 AM CHARGE POSTER HEPATIC FUNCTION PANEL Routine 09/12/2019 4:49 AM CHARGE POSTER PHOSPHORUS Routine 09/12/2019 4:49 AM CHARGE POSTER MAGNESIUM Routine 09/12/2019 4:49 AM CHARGE POSTER BASIC METABOLIC PANEL (7) Routine 09/12/2019 4:49 AM CHARGE POSTER CBC W/PLT COUNT & AUTO Routine 09/12/2019 DIFFERENTIAL 4:49 AM CHARGE POSTER POCT-GLUCOSE METER Routine 09/12/2019 12:54 AM CHARGE POSTER POCT-GLUCOSE METER Routine 09/11/2019 5:36 PM CHARGE POSTER POCT-GLUCOSE METER Routine 09/11/2019 5:05 PM CHARGE POSTER PHOSPHORUS Routine 09/11/2019 3:35 PM CHARGE POSTER MAGNESIUM Routine 09/11/2019 3:35 PM CHARGE POSTER BASIC METABOLIC PANEL (7) Routine 09/11/2019 3:35 PM CHARGE POSTER POCT-GLUCOSE METER Routine 09/11/2019 12:08 PM CHARGE POSTER POCT-GLUCOSE METER Routine 09/11/2019 8:01 AM CHARGE POSTER (CELLAVISION MANUAL DIFF) Routine 09/11/2019 3:32 AM CHARGE POSTER CBC W/PLT COUNT & AUTO Routine 09/11/2019 DIFFERENTIAL 3:32 AM CHARGE POSTER HEPATIC FUNCTION PANEL Routine 09/11/2019 3:32 AM CHARGE POSTER PHOSPHORUS Routine 09/11/2019 3:32 AM CHARGE POSTER MAGNESIUM Routine 09/11/2019 3:32 AM CHARGE POSTER BASIC METABOLIC PANEL (7) Routine 09/11/2019 3:32 AM CHARGE POSTER CBC W/PLT COUNT & AUTO Routine 09/11/2019 DIFFERENTIAL 3:32 AM CHARGE POSTER POCT-GLUCOSE METER Routine 09/10/2019 11:06 PM CHARGE POSTER POCT-GLUCOSE METER Routine 09/10/2019 5:50 PM CHARGE POSTER PHOSPHORUS Routine 09/10/2019 4:19 PM CHARGE POSTER MAGNESIUM Routine 09/10/2019 4:19 PM CHARGE POSTER BASIC METABOLIC PANEL (7) Routine 09/10/2019 4:19 PM CHARGE POSTER POCT-GLUCOSE METER Routine 09/10/2019 2:35 PM CHARGE POSTER POCT-GLUCOSE METER Routine 09/10/2019 7:59 AM CHARGE POSTER CBC W/PLT COUNT & AUTO Routine 09/10/2019 DIFFERENTIAL 4:30 AM CHARGE POSTER HEPATIC FUNCTION PANEL Routine 09/10/2019 4:30 AM CHARGE POSTER PHOSPHORUS Routine 09/10/2019 4:30 AM CHARGE POSTER MAGNESIUM Routine 09/10/2019 4:30 AM CHARGE POSTER BASIC METABOLIC PANEL (7) Routine 09/10/2019 4:30 AM CHARGE POSTER CBC W/PLT COUNT & AUTO Routine 09/10/2019 DIFFERENTIAL 4:30 AM CHARGE POSTER APTT Routine 09/10/2019 4:30 AM CHARGE POSTER APTT Routine 09/09/2019 11:11 PM CHARGE POSTER POCT-GLUCOSE METER Routine 09/09/2019 9:31 PM CHARGE POSTER POTASSIUM Routine 09/09/2019 5:38 PM CHARGE POSTER APTT Routine 09/09/2019 5:38 PM CHARGE POSTER POCT-GLUCOSE METER Routine 09/09/2019 4:26 PM CHARGE POSTER PHOSPHORUS Routine 09/09/2019 2:28 PM CHARGE POSTER MAGNESIUM Routine 09/09/2019 2:28 PM CHARGE POSTER BASIC METABOLIC PANEL (7) Routine 09/09/2019 2:28 PM CHARGE POSTER APTT Routine 09/09/2019 11:16 AM CHARGE POSTER POCT-GLUCOSE METER Routine 09/09/2019 11:14 AM CHARGE POSTER POCT-GLUCOSE METER Routine 09/09/2019 7:25 AM CHARGE POSTER BILIRUBIN, DIRECT STAT 09/09/2019 Add-on 5:11 AM CHARGE POSTER DIGOXIN LEVEL Routine 09/09/2019 5:11 AM CHARGE POSTER TROPONIN I STAT 09/09/2019 5:11 AM CHARGE POSTER CBC W/PLT COUNT & AUTO Routine 09/09/2019 DIFFERENTIAL 3:08 AM CHARGE POSTER BLOOD GAS, ARTERIAL Routine 09/09/2019 3:08 AM CHARGE POSTER APTT Routine 09/09/2019 3:08 AM CHARGE POSTER PHOSPHORUS Routine 09/09/2019 3:08 AM CHARGE POSTER MAGNESIUM Routine 09/09/2019 3:08 AM CHARGE POSTER COMPREHENSIVE METABOLIC Routine 09/09/2019 PANEL 3:08 AM CHARGE POSTER CBC W/PLT COUNT & AUTO Routine 09/09/2019 DIFFERENTIAL 3:08 AM CHARGE POSTER XR ABDOMEN / KUB 1 VIEW STAT 09/09/2019 2:16 AM CHARGE POSTER LACTIC ACID, VENOUS STAT 09/09/2019 1:53 AM CHARGE POSTER TROPONIN I STAT 09/08/2019 11:17 PM CHARGE POSTER POCT-GLUCOSE METER Routine 09/08/2019 10:44 PM CHARGE POSTER ECHOCARDIOGRAM REPORT - 09/08/2019 SCAN 9:12 PM CHARGE POSTER MAGNESIUM Routine 09/08/2019 5:53 PM CHARGE POSTER POTASSIUM Routine 09/08/2019 5:53 PM CHARGE POSTER TROPONIN I STAT 09/08/2019 5:53 PM CHARGE POSTER POCT-GLUCOSE METER Routine 09/08/2019 4:59 PM CHARGE POSTER BLOOD CULTURE Routine 09/08/2019 4:48 PM CHARGE POSTER BLOOD CULTURE Routine 09/08/2019 4:45 PM CHARGE POSTER C. DIFFICILE GDH TOXIN Routine 09/08/2019 4:30 PM CHARGE POSTER HEPARIN ANTIBODY AP Routine 09/08/2019 3:53 PM CHARGE POSTER TROPONIN I STAT 09/08/2019 1:17 PM CHARGE POSTER LACTIC ACID, ARTERIAL Routine 09/08/2019 1:17 PM CHARGE POSTER BASIC METABOLIC PANEL (7) STAT 09/08/2019 1:17 PM CHARGE POSTER POCT-GLUCOSE METER Routine 09/08/2019 11:45 AM CHARGE POSTER ECG 12-LEAD Routine 09/08/2019 10:45 AM CHARGE POSTER Procedure Note - Interface, External Ris In - 09/08/2019 12:22 PM CHARGE POSTER Ventricula r Rate 140 BPM Atrial Rate 140 BPM P-R Interval 80 ms QRS Duration 118 ms Q-T Interval 324 ms QTC Calculatio n(Bazett) 494 ms P [place] -64 degrees R [place] -59 degrees T [place] 110 degrees Unusual P axis and short CT, probable junctional tachycardi a Left anterior fascicular block Cannot rule out Inferior infarct (masked by fascicular block?) , possibly acute Possible Anterolate ral infarct (cited on or before 0) ACUTE IN / STEMI Consider right ventricula r involvemen t in acute inferior infarct Abnormal ECG When compared with ECG of 0 00:53, Junctional rhythm has replaced Atrial fibrillati on Serial changes of Anterior infarct Present ECG 12-LEAD STAT 09/08/2019 10:45 AM CHARGE POSTER TROPONIN I STAT 09/08/2019 10:45 AM CHARGE POSTER POCT-GLUCOSE METER Routine 09/08/2019 8:47 AM CHARGE POSTER TROPONIN I Add-On 09/08/2019 8:35 AM CHARGE POSTER BASIC METABOLIC PANEL (7) Add-On 09/08/2019 8:35 AM CHARGE POSTER APTT Routine 09/08/2019 8:35 AM CHARGE POSTER PROTHROMBIN TIME/INR Routine 09/08/2019 8:35 AM CHARGE POSTER FIBRINOGEN Routine 09/08/2019 8:35 AM CHARGE POSTER HAPTOGLOBIN Routine 09/08/2019 8:35 AM CHARGE POSTER LACTATE DEHYDROGENASE Routine 09/08/2019 (LDH) 8:35 AM CHARGE POSTER (CELLAVISION MANUAL DIFF) Routine 09/08/2019 3:56 AM CHARGE POSTER CBC W/PLT COUNT & AUTO Routine 09/08/2019 DIFFERENTIAL 3:56 AM CHARGE POSTER PHOSPHORUS Add-On 09/08/2019 3:56 AM CHARGE POSTER MAGNESIUM Add-On 09/08/2019 3:56 AM CHARGE POSTER COMPREHENSIVE METABOLIC Routine 09/08/2019 PANEL 3:56 AM CHARGE POSTER CBC W/PLT COUNT & AUTO Routine 09/08/2019 DIFFERENTIAL 3:56 AM CHARGE POSTER APTT Routine 09/08/2019 2:09 AM CHARGE POSTER LACTIC ACID, VENOUS Routine 09/08/2019 1:13 AM CHARGE POSTER ECG 12-LEAD Routine 09/08/2019 12:53 AM CHARGE POSTER ECG 12-LEAD Routine 09/08/2019 12:53 AM CHARGE POSTER Procedure Note - Interface, External Ris In - 09/08/2019 1:03 AM CHARGE POSTER Ventricula r Rate 149 BPM Atrial Rate 136 BPM QRS Duration 126 ms Q-T Interval 336 ms QTC Calculatio n(Bazett) 529 ms R Deming -63 degrees T Deming 120 degrees Atrial fibrillati on with rapid ventricula r response Left axis deviation Non-specif ic intra-vent ricular conduction block Possible Anterolate ral infarct (cited on or before 0) Abnormal ECG When compared with ECG of 0 05:41, Atrial fibrillati on has replaced Sinus rhythm Vent. rate has increased BY 53 BPM Serial changes of evolving Anterior infarct Present Serial changes of evolving Anterolate ral infarct Present POCT-GLUCOSE METER Routine 09/07/2019 9:11 PM CHARGE POSTER US HEPATIC PORTAL VESSEL STAT 09/07/2019 WITH DOPPLER 9:00 PM CHARGE POSTER APTT Routine 09/07/2019 7:51 PM CHARGE POSTER LACTIC ACID, ARTERIAL STAT 09/07/2019 4:25 PM CHARGE POSTER BLOOD GAS, ARTERIAL BENSON 09/07/2019 4:25 PM CHARGE POSTER BLOOD CULTURE Routine 09/07/2019 4:25 PM CHARGE POSTER XR CHEST 1 VIEW STAT 09/07/2019 PORTABLE/BEDSIDE 3:27 PM CHARGE POSTER 2D ECHO W/ DOPPLER STAT 09/07/2019 (CW/PW/COLOR) 2:48 PM CHARGE POSTER APTT Routine 09/07/2019 1:35 PM CHARGE POSTER PLATELET COUNT Routine 09/07/2019 1:35 PM CHARGE POSTER LACTIC ACID, VENOUS Routine 09/07/2019 1:35 PM CHARGE POSTER POCT-GLUCOSE METER Routine 09/07/2019 12:36 PM CHARGE POSTER BLOOD CULTURE Routine 09/07/2019 10:38 AM CHARGE POSTER (CELLAVISION MANUAL DIFF) Routine 09/07/2019 10:37 AM CHARGE POSTER CBC W/PLT COUNT & AUTO Routine 09/07/2019 DIFFERENTIAL 10:37 AM CHARGE POSTER COMPREHENSIVE METABOLIC Routine 09/07/2019 PANEL 10:37 AM CHARGE POSTER CBC W/PLT COUNT & AUTO Routine 09/07/2019 DIFFERENTIAL 10:37 AM CHARGE POSTER TROPONIN I Routine 09/07/2019 10:37 AM CHARGE POSTER LACTIC ACID, VENOUS Routine 09/07/2019 10:37 AM CHARGE POSTER POCT-GLUCOSE METER Routine 09/07/2019 9:00 AM CHARGE POSTER ECG 12-LEAD Routine 09/07/2019 5:41 AM CHARGE POSTER Procedure Note - Interface, External Ris In - 09/07/2019 5:51 AM CHARGE POSTER Ventricula r Rate 96 BPM Atrial Rate 96 BPM P-R Interval 146 ms QRS Duration 124 ms Q-T Interval 402 ms QTC Calculatio n(Bazett) 507 ms P Deming 53 degrees R Deming -59 degrees T Deming 98 degrees Sinus rhythm with Premature atrial complexes Left anterior fascicular block Cannot rule out Anterior infarct , age undetermin ed Abnormal ECG When compared with ECG of 0 12:46, Premature atrial complexes are now Present ECG 12-LEAD Routine 09/07/2019 5:41 AM CHARGE POSTER POCT-GLUCOSE METER Routine 09/06/2019 9:23 PM CHARGE POSTER TROPONIN I STAT 09/06/2019 8:17 PM CHARGE POSTER B-TYPE NATRIURETIC FACTOR Routine 09/06/2019 (BNP) 8:17 PM CHARGE POSTER APTT Routine 09/06/2019 8:17 PM CHARGE POSTER HEMOGLOBIN A1C Routine 09/06/2019 8:17 PM CHARGE POSTER POCT-GLUCOSE METER Routine 09/06/2019 5:44 PM CHARGE POSTER TROPONIN I STAT 09/06/2019 4:09 PM CHARGE POSTER LACTIC ACID, VENOUS STAT 09/06/2019 4:09 PM CHARGE POSTER TROPONIN I STAT 09/06/2019 Add-on 4:08 PM CHARGE POSTER BASIC METABOLIC PANEL (7) Routine 09/06/2019 4:08 PM CHARGE POSTER FERRITIN Routine 09/06/2019 4:08 PM CHARGE POSTER IRON, TIBC, % SAT. Routine 09/06/2019 (WITHOUT FERRITIN) 4:08 PM CHARGE POSTER POCT-GLUCOSE METER Routine 09/06/2019 1:35 PM CHARGE POSTER RETICULOCYTE COUNT Routine 09/06/2019 1:18 PM CHARGE POSTER LACTIC ACID, VENOUS STAT 09/06/2019 1:18 PM CHARGE POSTER ECG 12-LEAD Routine 09/06/2019 12:46 PM CHARGE POSTER CREATININE, RANDOM URINE Routine 09/06/2019 12:29 PM CHARGE POSTER SODIUM, RANDOM URINE Routine 09/06/2019 12:29 PM CHARGE POSTER TROPONIN I Add-On 09/06/2019 9:48 AM CHARGE POSTER PROCALCITONIN STAT 09/06/2019 9:48 AM CHARGE POSTER LACTIC ACID, VENOUS STAT 09/06/2019 9:[address] ABDOMEN/PELVIS WITHOUT STAT 09/06/2019 IV CONTRAST 8:00 AM CHARGE POSTER LACTIC ACID, VENOUS STAT 09/06/2019 6:56 AM CHARGE POSTER TROPONIN I Add-On 09/06/2019 5:26 AM CHARGE POSTER KETONE, BLOOD STAT 09/06/2019 5:26 AM CHARGE POSTER BASIC METABOLIC PANEL (7) STAT 09/06/2019 5:26 AM CHARGE POSTER POCT-GLUCOSE METER Routine 09/06/2019 5:04 AM CHARGE POSTER BASIC METABOLIC PANEL (7) STAT 09/06/2019 2:55 AM CHARGE POSTER CBC W/PLT COUNT & AUTO STAT 09/06/2019 DIFFERENTIAL 1:55 AM CHARGE POSTER URINALYSIS W/ MICROSCOPIC STAT 09/06/2019 1:55 AM CHARGE POSTER PT/APTT STAT 09/06/2019 1:55 AM CHARGE POSTER CBC W/PLT COUNT & AUTO STAT 09/06/2019 DIFFERENTIAL 1:55 AM CHARGE POSTER BLOOD CULTURE Routine 09/06/2019 IDENTIFICATION PANEL 1:55 AM CHARGE POSTER BLOOD CULTURE STAT 09/06/2019 1:55 AM CHARGE POSTER URINE CULTURE STAT 09/06/2019 1:55 AM CHARGE POSTER BLOOD CULTURE STAT 09/06/2019 1:27 AM CHARGE POSTER KETONE, BLOOD STAT 09/06/2019 1:26 AM CHARGE POSTER AMMONIA STAT 09/06/2019 1:26 AM CHARGE POSTER ECG 12-LEAD Routine 09/06/2019 1:20 AM CHARGE POSTER Procedure Note - Interface, External Ris In - 09/06/2019 2:14 AM CHARGE POSTER Ventricula r Rate 80 BPM Atrial Rate 80 BPM P-R Interval 148 ms QRS Duration 114 ms Q-T Interval 372 ms QTC Calculatio n(Bazett) 429 ms P Deming 57 degrees R Deming -60 degrees T Deming 103 degrees Normal sinus rhythm with sinus arrhythmia Left anterior fascicular block Cannot rule out Anterior infarct , age undetermin ed Abnormal ECG When compared with ECG of 7 00:26, T wave inversion no longer evident in Inferior leads T wave inversion now evident in Lateral leads ECG 12-LEAD STAT 09/06/2019 1:20 AM CHARGE POSTER LIPASE STAT 09/06/2019 1:10 AM CHARGE POSTER HEPATIC FUNCTION PANEL STAT 09/06/2019 1:10 AM CHARGE POSTER TROPONIN I STAT 09/06/2019 1:10 AM CHARGE POSTER CREATINE KINASE (CK) STAT 09/06/2019 1:10 AM CHARGE POSTER ED ECG INTERPRETATION Routine 09/06/2019 12:47 AM CHARGE POSTER CRITICAL CARE Routine 09/06/2019 12:47 AM CHARGE POSTER XR PELVIS 1 OR 2 VIEWS STAT 09/06/2019 12:15 AM CHARGE POSTER XR CHEST 1 VIEW STAT 09/06/2019 PORTABLE/BEDSIDE 12:[address] BRAIN WITHOUT IV STAT 09/05/2019 CONTRAST 11:32 PM CHARGE POSTER RHYTHM STRIP - SCAN 08/21/2019 1:23 PM CHARGE POSTER POCT-GLUCOSE METER Routine 08/19/2019 10:09 AM CHARGE POSTER CBC W/PLT COUNT & AUTO Routine 08/19/2019 DIFFERENTIAL 5:35 AM CHARGE POSTER CBC W/PLT COUNT & AUTO Routine 08/19/2019 DIFFERENTIAL 5:35 AM CHARGE POSTER HEPATIC FUNCTION PANEL Routine 08/19/2019 3:47 AM CHARGE POSTER COMPREHENSIVE METABOLIC Routine 08/19/2019 PANEL 3:47 AM CHARGE POSTER POCT-GLUCOSE METER Routine 08/18/2019 8:29 PM CHARGE POSTER POCT-GLUCOSE METER Routine 08/18/2019 4:35 PM CHARGE POSTER REPORT OF PROCEDURE - 08/18/2019 ENDOSCOPY URL 2:04 PM CHARGE POSTER FL ERCP Routine 08/18/2019 2:00 PM CHARGE POSTER FINE NEEDLE ASPIRATE Routine 08/18/2019 (FNA) REQUEST 1:44 PM CHARGE POSTER FINE NEEDLE ASPIRATION BY AP Routine 08/18/2019 CLINICIAN 1:44 PM CHARGE POSTER ERCP,BILIARY STENT 08/18/2019 Jaundice 1:00 PM CHARGE POSTER Special Needs (RADIAL SCOPE) PROCEDURE W/ C-ARM 08/18/2019 Jaundice 1:00 PM CHARGE POSTER Special Needs (RADIAL SCOPE) ERCP,PAPILLOTOMY 08/18/2019 Jaundice 1:00 PM CHARGE POSTER Special Needs (RADIAL SCOPE) UPPER 08/18/2019 Jaundice ENDOSCOPY,ULTRASOUND 1:00 PM CHARGE POSTER Special Needs (RADIAL SCOPE) POCT-GLUCOSE METER Routine 08/18/2019 11:33 AM CHARGE POSTER POCT-GLUCOSE METER Routine 08/18/2019 7:51 AM CHARGE POSTER CBC W/PLT COUNT & AUTO Routine 08/18/2019 DIFFERENTIAL 4:04 AM CHARGE POSTER CBC W/PLT COUNT & AUTO Routine 08/18/2019 DIFFERENTIAL 4:04 AM CHARGE POSTER COMPREHENSIVE METABOLIC Routine 08/18/2019 PANEL 4:04 AM CHARGE POSTER POCT-GLUCOSE METER Routine 08/17/2019 8:44 PM CHARGE POSTER POCT-GLUCOSE METER Routine 08/17/2019 10:08 AM CHARGE POSTER CBC W/PLT COUNT & AUTO Routine 08/17/2019 DIFFERENTIAL 4:37 AM CHARGE POSTER CBC W/PLT COUNT & AUTO Routine 08/17/2019 DIFFERENTIAL 4:37 AM CHARGE POSTER COMPREHENSIVE METABOLIC Routine 08/17/2019 PANEL 4:37 AM CHARGE POSTER MR ABDOMEN WO CONTRAST Routine 08/17/2019 MRCP 2:13 AM CHARGE POSTER CBC W/PLT COUNT & AUTO Routine 08/16/2019 DIFFERENTIAL 10:00 PM CHARGE POSTER PT/APTT STAT 08/16/2019 10:00 PM CHARGE POSTER CBC W/PLT COUNT & AUTO Routine 08/16/2019 DIFFERENTIAL 10:00 PM CHARGE POSTER COMPREHENSIVE METABOLIC Routine 08/16/2019 PANEL 10:00 PM CHARGE POSTER POCT-GLUCOSE METER Routine 08/16/2019 9:13 PM CHARGE POSTER POCT-GLUCOSE METER Routine 08/16/2019 6:37 PM CHARGE POSTER after 04/12/2019 Results * EKG-SCANNED (10/30/2019 9:50 AM CDT) Only the most recent of 3 results within the time period is included. Narrative Performed At This result has an attachment that is n ot available. * RHYTHM STRIP - SCAN (10/30/2019 9:50 AM CDT) Only the most recent of 6 results within the time period is included. Narrative Performed At This result has an attachment that is n ot available. * POC-Glucose meter (10/28/2019 6:14 AM CDT) Only the most recent of 82 results within the time period is included. POC-Glucose Meter 256 (H)Comment: : TESTED AT 70 - 110 mg/dL [address], [facility] [address]: Edge Trimmer/International Logistics Analyst ID = [id number] for Sepideh Villegas [facility] Blood Performing Organization Address City/State/Zipcode Ph one Number [address] [facility] * CBC with platelet count + automated diff (10/28/2019 5:53 AM CDT) Only the most recent of 22 results within the time period is included. WBC 4.7 3.5 - 10.5 K/L [facility] RBC 3.85 (L) 3.93 - 5.22 M/L [facility] Hemoglobin 12.3 11.2 - 15.7 GM/DL [facility] Hematocrit 37.2 34.1 - 44.9 % [facility] MCV 96.6 (H) 79.4 - 94.8 fL [facility] MCH 31.9 25.6 - 32.2 pg [facility] MCHC 33.1 32.2 - 35.5 GM/DL [facility] RDW 13.4 11.7 - 14.4 % [facility] Platelets 128 (L) 150 - 450 K/CU MM [facility] MPV 10.4 9.4 - 12.3 fL [facility] nRBC 0 0 - 0 /100 WBC [facility] % Neutros 39 % [facility] % Lymphs 48 % [facility] % Monos 7 % [facility] % Eos 6 % [facility] % Baso 1 % [facility] # Neutros 1.84 1.56 - 6.13 K/L [facility] # Lymphs 2.27 1.18 - 3.74 K/L [facility] # Monos 0.33 0.24 - 0.36 K/L [facility] # Eos 0.26 0.04 - 0.36 K/L [facility] # Baso 0.03 0.01 - 0.08 K/L [facility] Immature 0 0 - 1 % [facility] Granulocytes-[facility] Specimen Blood Performing Organization Address [facility] one Number [facility] [address] [place] [address] [address] [facility] * Basic Metabolic Panel (10/28/2019 5:53 AM CDT) Only the most recent of 22 results within the time period is included. Sodium 140 136 - 145 meq/L [facility] Potassium 3.6 3.5 - 5.1 meq/L [facility] Chloride 108 (H) 98 - 107 meq/L [facility] CO2 26 22 - 29 meq/L [facility] BUN 14 7 - 21 mg/dL [facility] Creatinine 1.19 0.57 - 1.25 mg/dL [facility] Glucose 288 (H) 70 - 105 mg/dL [facility] Calcium 8.6 8.4 - 10.2 mg/dL [facility] EGFR 44Comment: ESTIMATED GFR IS mL/min/1.73 sq m [facility] NOT ACCURATE CREATININE [facility] CLEARANCE IN PREDICTING GLOMERULAR FILTRATION RATE. ESTIMATED GFR IS NOT APPLICABLE FOR DIALYSIS PATIENTS. Specimen Blood Narrative Performed At Edge Trimmer ID - LM [facility] Performing Organization Address [facility] one Number [place] [address] [facility] * Urinalysis w/Microscopic + Reflex to Culture (10/27/2019 9:31 PM CDT) Color, UA Yellow [facility] Clarity, UA Clear [facility] Specific [place], UA 1.015 1.001 - 1.035 [facility] pH, UA 6.0 5.0 - 8.0 [facility] Protein, UA Negative Negative [facility] Glucose, UA 300 mg/dL (A) Negative [facility] Ketones, UA Negative Negative [facility] Bilirubin, UA Negative Negative [facility] Blood, UA Negative Negative [facility] Nitrite, UA Negative Negative [facility] Leukocytes, UA Negative Negative [facility] Urobilinogen, UA 2.0 (H) 0.2 - 1.0 mg/dL [facility] RBC, UA <1 /HPF [facility] WBC, UA 1 /HPF [facility] Mucus Rare [facility] Squam Epithel, UA <1 /HPF [facility] Specimen Source [facility] Specimen Urine Narrative Performed At Edge Trimmer ID - [[id number]] [facility] Edge Trimmer ID - [facility] Performing Organization Address City/[facility] Ph one Number [place] [address] [facility] * Osmolality, urine (10/27/2019 9:31 PM CDT) Osmolality, Ur 576 40-1,400 mOsm/kg [facility] Specimen Urine Performing Organization Address [facility] Ph one Number [address] [facility] * Creatinine, random urine (10/27/2019 9:31 PM CDT) Only the most recent of 2 results within the time period is included. Creatinine, Ur 78.9 mg/dL [facility] Specimen Urine Narrative Performed At Reference Range: No Normals [facility] Edge Trimmer ID - DB [facility] Performing Organization Address [facility] Ph one Number [facility] [address] [place], [place] [address] [facility] * REPORT OF PROCEDURE - ENDOSCOPY URL (10/27/2019 12:06 PM CDT) Narrative Performed At This result has an attachment that is n ot available. * PT/aPTT (10/27/2019 3:27 AM CDT) Only the most recent of 5 results within the time period is included. Protime 13.6 11.9 - 14.2 seconds [facility] INR 1.1 <=5.9 [facility] PTT 32.6 22.5 - 36.0 seconds [facility] Specimen Blood Narrative Performed At Effective 12/07/2018: PT Reference Range Change [facility] New: 11.9-14.2Previous: 11.7-14.7 [facility] NTER RECOMMENDED COUMADIN/WARFARIN INR THERA PY RANGES STANDARD DOSE: 2.0-3.0Includes: PRO PHYLAXIS for venous thrombosis, systemic embolization; TREATMENT for venous thro mbosis and/or pulmonary embolus. HIGH RISK: Target INR is 2.5-3.5 for pa tients wiht mechanical heart valves. Performing Organization Address City/[facility] one Number [facility] [address], [place] [address] [facility] * Hemoglobin and hematocrit (10/27/2019 3:27 AM CDT) Only the most recent of 2 results within the time period is included. Hemoglobin 12.2 11.2 - 15.7 GM/DL [facility] Hematocrit 37.0 34.1 - 44.9 % [facility] Specimen Blood Narrative Performed At Edge Trimmer ID - [id number] [facility] Performing Organization Address [facility] one Number [address] [facility] * Troponin I (10/27/2019 3:27 AM CDT) Only the most recent of 19 results within the time period is included. Troponin I 0.02 0.00 - 0.03 ng/mL [facility] Specimen Blood Narrative Performed At Troponin I (TnI) levels must be interpreted in the co ntext of the presenting [facility] symptoms and the clinical findings. Elevated TnI leve ls indicate myocardial [facility] damage, but are not specific for ischem ic heart disease. Elevated TnI levels are seen in patients with other cardiac con ditions (including myocarditis and congestive heart failure), and slight T nI elevations occur in patients with other conditions, including sepsis, briseyda al failure, acidosis, acute neurological disease, and persistent tachyarrhythmia . Edge Trimmer ID - [place] Xavier Performing Organization Address [facility] one Number [address] [facility] * Occult blood x 1, stool (10/26/2019 7:18 PM CDT) Occult blood Negative Negative [facility] Specimen Stool Performing Organization Address [facility] one Number [address] 0 [phone] [place] [address] * ECG 12 lead (10/26/2019 7:00 PM CDT) Only the most recent of 7 results within the time period is included. Specimen Narrative Performed At Ventricular Rate 65 BPM GE MUSE Atrial Rate 65 BPM P-R Interval 172 ms QRS Duration 130 ms Q-T Interval 480 ms QTC Calculation(Bazett) 499 ms P Deming 56 degrees R Deming -65 degrees T Deming 102 degrees Normal sinus rhythm with sinus arrhythm ia Left axis deviation Left ventricular hypertrophy with QRS w idening and repolarization abnormality Abnormal ECG When compared with ECG of 03-OCT-2019 1 8:14, No significant change was found Confirmed by MD Campbell Roberto ([id number]) on 10/27/2019 1:42:06 PM Procedure Note Interface, External Ris In - 10/27/2019 1:42 PM CDT Ventricular Rate 65 BPM Atrial Rate 65 BPM P-R Interval 172 ms QRS Duration 130 ms Q-T Interval 480 ms QTC Calculation(Bazett) 499 ms P Deming 56 degrees R Deming -65 degrees T Deming 102 degrees Normal sinus rhythm with sinus arrhythmia Left axis deviation Left ventricular hypertrophy with QRS widening and repolarization abnormality Abnormal ECG When compared with ECG of 03-OCT-2019 18:14, No significant change was found Confirmed by MD Campbell Roberto ([id number]) on 10/27/2019 1:42:06 PM Performing Organization Address City/State/Zipcode Ph one Number [email or web address] * XR chest 1 view portable / bedside (10/26/2019 6:30 PM CDT) Only the most recent of 6 results within the time period is included. Specimen Narrative Performed At FINAL REPORT [email or web address] INDICATION: gi bleed COMPARISON: 10/03/2019 TECHNIQUE: Single frontal view of the c hest. IMPRESSION: Lungs and pleura: Significantly improve d aeration of the left lung compared to prior with mild left basila r subsegmental atelectasis. No consolidation or sizable effusion. No p neumothorax. Heart and mediastinum: Normal heart siz e. Moderate calcifications at the aortic arch. Osseous structures: No acute abnormalit y. Prior median sternotomy. Other: None. Signed: Mairta Kline MD Report Verified Date/Time: 0 19:07:20 Procedure Note Interface, External Ris In - 10/26/2019 7:09 PM CDT FINAL REPORT INDICATION: gi bleed COMPARISON: 10/03/2019 TECHNIQUE: Single frontal view of the chest. IMPRESSION: Lungs and pleura: Significantly improved aeration of the left lung compared to prior with mild left basilar subsegmental atelectasis. No consolidation or sizable effusion. No pneumothorax. Heart and mediastinum: Normal heart size. Moderate calcifications at the aortic arch. Osseous structures: No acute abnormality. Prior median sternotomy. Other: None. Signed: Marita Kline MD Report Verified Date/Time: 10/26/2019 19:07:20 Performing Organization Address [facility] Ph one Number GE RIS * XR abdomen 2 views flat and upright (10/26/2019 6:30 PM CDT) Specimen Narrative Performed At FINAL REPORT [facility] TECHNIQUE: Supine and upright views of the abdomen. INDICATION: GI bleed. COMPARISON: 09/09/2019. FINDINGS/IMPRESSION: Bowel gas pattern is nonobstructive. No evidence of free air on upright views. A biliary metallic stent is present. No acute bone abnormality. Moderate thoracolumbar lum bar scoliosis and aortic calcification similar to prior. Signed: Marita Kline MD Report Verified Date/Time: 0 19:12:09 Procedure Note Interface, External Ris In - 10/26/2019 7:14 PM CDT FINAL REPORT TECHNIQUE: Supine and upright views of the abdomen. INDICATION: GI bleed. COMPARISON: 09/09/2019. FINDINGS/IMPRESSION: Bowel gas pattern is nonobstructive. No evidence of free air on upright views. A biliary metallic stent is present. No acute bone abnormality. Moderate thoracolumbar lumbar scoliosis and aortic calcification similar to prior. Signed: Marita Kline MD Report Verified Date/Time: 10/26/2019 19:12:09 Performing Organization Address [facility] one Number [facility] * Lipase (10/26/2019 6:24 PM CDT) Only the most recent of 2 results within the time period is included. Lipase 52 8 - 78 U/L [facility] Specimen Blood Narrative Performed At Edge Trimmer ID - JOY Rick [facility] Performing Organization Address [facility] Ph one Number [place] [phone] [facility] * Hepatic function panel (10/26/2019 6:24 PM CDT) Only the most recent of 8 results within the time period is included. Protein, Total 7.3Comment: Specimen slightly 6.0 - 8.3 gm/dL [facility] Albumin 4.0Comment: Specimen slightly 3.5 - 5.0 g/dL [facility] Total Bilirubin 1.2Comment: Specimen slightly 0.2 - 1.2 mg/dL [facility] Bilirubin, Direct 0.6 (H)Comment: Specimen 0.1 - 0.5 mg/dL [facility] Alk[facility] Phosphatase 109 40 - 150 U/L [facility] AST 30Comment: Specimen slightly 5 - 34 U/L [facility] ALT 16Comment: Specimen slightly 6 - 55 U/L [facility] Specimen Blood Narrative Performed At Edge Trimmer ID - JOY Rick [facility] Performing Organization Address City/State/Zipcode Ph one Number [place] [address] [facility] * CT chest without IV contrast (10/06/2019 9:56 PM CDT) Specimen Narrative Performed At FINAL REPORT [email or web address] CT of the Chest dated 10/06/2019 CLINICAL INFORMATION: leaking around pl eurx catheter. eval fro it being in empty loculation, kinked, in p oor position, seroma/infection Comment:Axial images of the chest w ere obtained from thoracic inlet to the upper abdomen without intravenou s contrast. This exam was performed according to r departmental dose-optimization program, which includ es automated exposure control, adjustment of the mA and/or kV accordin g to patient size and/or use of interactive reconstruction technique . Heart is normal in size. Atheroscleroti c calcification is seen in the thoracic aorta and coronary arteries. G reat vessels are unremarkable. No adenopathy in the mediastinum or per ihilar region. Trachea and mainstem bronchi are patent. Subsegmental atelectasis versus scarrin g is seen in the lingula, right mid, and both lower lobes. No nod ular, mass lesion or airspace disease is noted.No interstitial di sease or bronchiectasis is present. Trace left pleural effusion is seen. A right chest tube is present. No pneumothorax is seen. Visualized upper abdomen demonstrates n o focal lesion. Impression: 1. Subsegmental atelectasis lingula, ri ght mid, and both lower lobes. 2. Trace left pleural effusion and no r ight pleural effusion or pneumothorax. Signed: Marita Barton MD Report Verified Date/Time: 0 22:07:58 Reading Location: [facility] C0[facility] Consult Reading Room Procedure Note Interface, External Ris In - 10/06/2019 10:10 PM CDT FINAL REPORT CT of the Chest dated 10/06/2019 CLINICAL INFORMATION: leaking around pleurx catheter. eval fro it being in empty loculation, kinked, in poor position, seroma/infection Comment: Axial images of the chest were obtained from thoracic inlet to the upper abdomen without intravenous contrast. This exam was performed according to our departmental dose-optimization program, which includes automated exposure control, adjustment of the mA and/or kV according to patient size and/or use of interactive reconstruction technique. Heart is normal in size. Atherosclerotic calcification is seen in the thoracic aorta and coronary arteries. Great vessels are unremarkable. No adenopathy in the mediastinum or perihilar region. Trachea and mainstem bronchi are patent. Subsegmental atelectasis versus scarring is seen in the lingula, right mid, and both lower lobes. No nodular, mass lesion or airspace disease is noted. No interstitial disease or bronchiectasis is present. Trace left pleural effusion is seen. A right chest tube is present. No pneumothorax is seen. Visualized upper abdomen demonstrates no focal lesion. Impression: 1. Subsegmental atelectasis lingula, rig ht mid, and both lower lobes. 2. Trace left pleural effusion and no ri ght pleural effusion or pneumothorax. Signed: Marita Barton MD Report Verified Date/Time: 10/06/2019 22:07:58 Reading Location: [facility] C0[facility] Consult Reading Room Performing Organization Address City/State/[facility] Ph one Number [facility] * Prothrombin time/INR (10/05/2019 4:04 AM CDT) Only the most recent of 4 results within the time period is included. Protime 13.7 11.9 - 14.2 seconds [facility] INR 1.1 <=5.9 [facility] Specimen Blood Narrative Performed At Effective 12/07/2018: PT Reference Range Change [facility] New: 11.9-14.2Previous: 11.7-14.7 [facility] MEDICAL NTER RECOMMENDED COUMADIN/WARFARIN INR THERA PY RANGES STANDARD DOSE: 2.0-3.0Includes: PRO PHYLAXIS for venous thrombosis, systemic embolization; TREATMENT for venous thro mbosis and/or pulmonary embolus. HIGH RISK: Target INR is 2.5-3.5 for pa tients wiht mechanical heart valves. Performing Organization Address City/[facility] one Number [place] [address] [facility] * ANG INTRAPERITONEAL PERMANENT CATHETER (10/04/2019 12:16 PM CDT) Specimen Narrative Performed At FINAL REPORT [facility] History: Leaking Pleurx catheter. PROCEDURE: Following informed written consent, the patient's existing right lateral chest wall tunneled pleural cat heter and surrounding skin site were prepped and draped in the usu al sterile manner. 2% lidocaine was given locally for anesthe phoebe. Fluoroscopic visualization of the catheter position was performed. The catheter was then advanced into a deeper positio n of the right pleural space over a 4 British Berenstein catheter and superstiff Glidewire contrast injection was performed to confirm that the sideholes of the catheter lie within the pleural space. The shannon ter was then flushed and attempt was made to aspirate fluid usin g a Vacutainer device. Only a trace amount of approximately 50 cc of fluid was removed. Overall, the patient tolerated the procedure wel l without immediate complications and was discharged from [facility] department in stable condition. FINDINGS: Initial fluoroscopic visualization of c atheter position demonstrates the proximal most sidehole of the tunne led right Pleurx catheter to lie just outside of the pleural space i n the chest wall. This position has changed significantly sinc e initial catheter placement 2 days ago. Following catheter reposition ing, the catheter lies in a deeper position within the right pleura l space with sideholes of the catheter clearly within the pleural cav ity. Injected contrast confirms position of the catheter and s ideholes within the pleural space. IMPRESSION: 1. Successful uncomplicated fluoroscopi garth guided repositioning of the patient's tunneled right pleural ca theter. Total fluoroscopy time: 2.9 minutes. Estimated total patient dose reported a s (Ka,r): 30 mGy Signed: Elicia Buckley MD Report Verified Date/Time: 0 14:49:39 Reading Location: [facility] Reading Room - [facility] 1.310.12 Procedure Note Interface, External Ris In - 10/05/2019 2:51 PM CDT FINAL REPORT History: Leaking Pleurx catheter. PROCEDURE: Following informed written consent, the patient's existing right lateral chest wall tunneled pleural catheter and surrounding skin site were prepped and draped in the usual sterile manner. 2% lidocaine was given locally for anesthesia. Fluoroscopic visualization of the catheter position was performed. The catheter was then advanced into a deeper position of the right pleural space over a 4 British Berenstein catheter and superstiff Glidewire contrast injection was performed to confirm that the sideholes of the catheter lie within the pleural space. The catheter was then flushed and attempt was made to aspirate fluid using a Vacutainer device. Only a trace amount of approximately 50 cc of fluid was removed. Overall, the patient tolerated the procedure well without immediate complications and was discharged from the department in stable condition. FINDINGS: Initial fluoroscopic visualization of catheter position demonstrates the proximal most sidehole of the tunneled right Pleurx catheter to lie just outside of the pleural space in the chest wall. This position has changed significantly since initial catheter placement 2 days ago. Following catheter repositioning, the catheter lies in a deeper position within the right pleural space with sideholes of the catheter clearly within the pleural cavity. Injected contrast confirms position of the catheter and sideholes within the pleural space. IMPRESSION: 1. Successful uncomplicated fluoroscopic ally guided repositioning of the patient's tunneled right pleural catheter. Total fluoroscopy time: 2.9 minutes. Estimated total patient dose reported as (Ka,r): 30 mGy Signed: Elicia Buckley MD Report Verified Date/Time: 10/05/2019 14:49:39 Reading Location: [facility] Diagnostic Imaging Reading Room - [facility] 1.310.12 Performing Organization Address [facility] one Number GE RIS * Lactic acid, venous (10/03/2019 7:20 PM CDT) Only the most recent of 9 results within the time period is included. Lactate, Venous 1.54Comment: Specimen 0.50 - 2.20 mmol/L [facility] Specimen Blood Narrative Performed At Edge Trimmer ID - BS [facility] Performing Organization Address [facility] one Number [facility] [address] [place] [address] [facility] * B-type Natriuretic Factor (BNP) (10/03/2019 6:58 PM CDT) Only the most recent of 2 results within the time period is included. BNP 209 (H) 0 - 100 pg/mL [facility] Specimen Blood Narrative Performed At Edge Trimmer ID - BS [facility] Performing Organization Address [facility] one Number [facility] [address], [place] [address] [facility] * Magnesium (10/03/2019 6:58 PM CDT) Only the most recent of 10 results within the time period is included. Magnesium 1.6Comment: Specimen 1.6 - 2.6 mg/dL [facility] moderately hemolyzed [facility] Specimen Blood Narrative Performed At Edge Trimmer ID - BS [facility] Performing Organization Address City/State/Zipcode Ph one Number [facility] [address], [place] [address] MEDICAL CENTER * IR Tunneled Drainage Catheter Placement (10/02/2019 5:20 PM CDT) Specimen Narrative Performed At FINAL REPORT [facility] History: Pancreatic cancer, recurrent r ight pleural effusion. PROCEDURE: Following informed written consent, the patient was placed in a supine position on the angiographic tab le and her right chest was prepped and draped in the usual sterile manner. Maximum sterile barrier techniques were utilized. 2% li docaine was given locally for anesthesia. No conscious sedation was a dministered. Using ultrasound and fluoroscopic guidance and a right m id axillary approach, a 19-gauge singlewall needle was advanced percutaneously into the patient's right pleural fluid collectio n. A wire was advanced through the needle and directed centrally into the right pleural apex. A subcutaneous tunnel was created in the right lateral chest wall. Pleurx catheter was tunneled and, cut t o an appropriate length and placed through a peel-away sheath and i nto position within the right pleural space under fluoroscopic contro l. The catheter was then secured to the skin using 2-0 silk sutu re. The small incision site at the entry point was closed using 2-0 ch romic suture. The catheter was then immediately used along with a Vacu tainer device to remove approximately 1.2 L of clear yellow flu id from the right pleural cavity. Overall, the patient tolerated the procedure well without immediate complications and was dischar [employer] from the department in stable condition. FINDINGS: Ultrasound images of the right chest pe rformed prior to and during the procedure demonstrate a moderate si ze right pleural fluid collection. Ultrasound images were obta ined and archived to PACS. Following placement of the patient's tu nneled right Pleurx catheter, the catheter is noted to lie in expecte d position with its tip in the right pleural apex. Initially, a modera te size right pleural effusion is noted. Following thoracentesis throu gh the catheter, only a small amount of residual pleural fluid is clarence ntified. IMPRESSION: 1. Technically successful uncomplicated ultrasound and fluoroscopically guided placement of a tunneled right pleural catheter. Thoracentesis was performed t hrough the catheter immediately after placement. Signed: Elicia Buckley MD Report Verified Date/Time: 0 17:43:09 Reading Location: [facility] Radiology Readin g Room Procedure Note Interface, External Ris In - 10/04/2019 5:45 PM CDT FINAL REPORT History: Pancreatic cancer, recurrent right pleural effusion. PROCEDURE: Following informed written consent, the patient was placed in a supine position on the angiographic table and her right chest was prepped and draped in the usual sterile manner. Maximum sterile barrier techniques were utilized. 2% lidocaine was given locally for anesthesia. No conscious sedation was administered. Using ultrasound and fluoroscopic guidance and a right mid axillary approach, a 19-gauge singlewall needle was advanced percutaneously into the patient's right pleural fluid collection. A wire was advanced through the needle and directed centrally into the right pleural apex. A subcutaneous tunnel was created in the right lateral chest wall. Pleurx catheter was tunneled and, cut to an appropriate length and placed through a peel-away sheath and into position within the right pleural space under fluoroscopic control. The catheter was then secured to the skin using 2-0 silk suture. The small incision site at the entry point was closed using 2-0 chromic suture. The catheter was then immediately used along with a Vacutainer device to remove approximately 1.2 L of clear yellow fluid from the right pleural cavity. Overall, the patient tolerated the procedure well without immediate complications and was discharged from the department in stable condition. FINDINGS: Ultrasound images of the right chest performed prior to and during the procedure demonstrate a moderate size right pleural fluid collection. Ultrasound images were obtained and archived to PACS. Following placement of the patient's tunneled right Pleurx catheter, the catheter is noted to lie in expected position with its tip in the right pleural apex. Initially, a moderate size right pleural effusion is noted. Following thoracentesis through the catheter, only a small amount of residual pleural fluid is identified. IMPRESSION: 1. Technically successful uncomplicated ultrasound and fluoroscopically guided placement of a tunneled right pleural catheter. Thoracentesis was performed through the catheter immediately after placement. Signed: Elicia Buckley MD Report Verified Date/Time: 10/04/2019 17:43:09 Reading Location: [facility] Radiology Reading Room Performing Organization Address [facility] one Number [facility] * aPTT (10/02/2019 10:23 AM CDT) Only the most recent of 11 results within the time period is included. PTT 31.2 22.5 - 36.0 seconds [facility] Specimen Blood Performing Organization Address [facility] one Number [facility] [address] [place] [address] [facility] * Protein, Total, Pleural Fluid (09/17/2019 4:36 PM CDT) PROTEIN, TOTAL, PLEURAL 2.1 [facility] Specimen Body Fluid Narrative Performed At This result has an attachment that is n ot available. Performing Organization Address [facility] one Number [facility] [address] [place] [id number] * Lactate Dehydrogenase (LD), Pleural Fluid (09/17/2019 4:36 PM CDT) Lactate Dehydrogenase 99 See Note: U/L [facility] (LD), Pleural Fluid Comment: INC[facility]PORATED Reference Range: TRANSUDATE:<113 EXUDATE: >113 SAMPLE SLIGHTLY ICTERIC. Specimen Body Fluid Narrative Performed At Performing Lab [facility] itute [address] [place] [id number] Louie Ortiz MD, PhD, YANELY Performing Organization Address [facility] one Number [facility], [address] [facility] [address] * Comprehensive metabolic panel (09/17/2019 5:15 AM CDT) Only the most recent of 8 results within the time period is included. Protein, Total 6.0 6.0 - 8.3 gm/dL [facility] Albumin 2.9 (L) 3.5 - 5.0 g/dL [facility] Alkaline Phosphatase 402 (H) 40 - 150 U/L [facility] Total Bilirubin 4.6 (H) 0.2 - 1.2 mg/dL [facility] Sodium 139 136 - 145 meq/L [facility] Potassium 3.8 3.5 - 5.1 meq/L [facility] Chloride 112 (H) 98 - 107 meq/L [facility] CO2 19 (L) 22 - 29 meq/L [facility] BUN 14 7 - 21 mg/dL [facility] Creatinine 0.81 0.57 - 1.25 mg/dL [facility] Glucose 121 (H) 70 - 105 mg/dL [facility] Calcium 8.3 (L) 8.4 - 10.2 mg/dL [facility] AST 68 (H) 5 - 34 U/L [facility] ALT 27 6 - 55 U/L [facility] EGFR 69Comment: ESTIMATED GFR IS mL/min/1.73 sq m [facility] NOT ACCURATE CREATININE [facility] CLEARANCE IN PREDICTING GLOMERULAR FILTRATION RATE. ESTIMATED GFR IS NOT APPLICABLE FOR DIALYSIS PATIENTS. Specimen Blood Narrative Performed At Edge Trimmer ID - PIAYA L [facility] Specimen moderately icteric [facility] Performing Organization Address [facility] Ph one Number [address] [address] MEDICAL CENTER * Body fluid culture + gram stain (09/16/2019 12:19 PM CHARGE POSTER) Result No growth [facility] Gram Stain Result <1+ White blood cells seen [facility] Gram Stain Result No organisms seen [facility] Specimen Body Fluid Performing Organization Address [facility] Ph one Number [facility] [address] [address] [facility] * Body fluid cell count with differential (09/16/2019 12:19 PM CHARGE POSTER) Appearance Slightly Hazy (A) Clear [facility] Color Yellow (A) Colorless, Straw [facility] RBCs 109 (H) <=1 /cu mm [facility] Adjusted WBC Count 125 (H) <=5 /cu mm [facility] Lining Cells 1 <=1 /cu mm [facility] % Segs 1 % [facility] % Lymphs 84 % [facility] % Monos 14 % [facility] % Eos 1 % [facility] % Baso 0 % [facility] Container Body Fluid Sterile Vial [facility] Specimen Body Fluid Performing Organization Address City/State/Zipcode Ph one Number [address] [facility] * Cytology (09/16/2019 12:18 PM CHARGE POSTER) Case Report Medical Cytology [facility] H Report [facility] Case: [id number] Authorizing Provider:Shireen Evans MD Collected: 09/16/2019 1218 Ordering Location: [address] Received: 09/18/2019 1334 Service Pathologist: Ag Keating MD Specimen:Pleural, Right DIAGNOSIS RIGHT PLEURAL FLUID (CYTOSPINS [facility] AND CELL BLOCK): [facility] - SUSPICIOUS FOR MALIGNANCY - FEATURES CONSISTENT WITH/SUGGESTIVE OF THIS PATIENT'S PRIOR DIAGNOSIS OF ADENOCARCINOMA OF THE PANCREAS ((SEE COMMENT) This case and the former pancreas case are discussed with Dr. Shireen Evans on 09/26/2019am. Additional sample is requested, for more definitive diagnosis. Signing Pathologist Direct Phone Line: [phone] COMMENT Very rare atypical slides are [facility] noted in the cytospin slides. [facility] They're quite atypical and suspicious for malignancy, and consistent with this patient's history of pancreatic adenocarcinoma ([id number],reviewed again on 09/26/[address] Keating and Alex, and designated positive for malignancy as well. (see amended report) Attempts at immunohistochemical stains are not successful, due to insufficient cellular material. Suggest additional samples if clinically indicated. CPT Code(s) 56652, [address] [facility] CLINICAL DATA Right pleural effusion, recent [facility] diagnosed with pancreatic [facility] cancer (see [id number]) SPECIMEN SOURCE RIGHT PLEURAL FLUID [facility] GROSS DESCRIPTION 60 mls deonte fluid; 4 [facility] cytospins, cell block [facility] Collected: [id number] Received: [id number] STATEMENT OF ADEQUACY Satisfactory [facility] SPECIAL STUDIES The interpretation of this [facility] case included the use of [facility] immunohistochemistry or special stains. Control Slides Examined: In-house known positive controls were evaluated along with the test tissue. These control slides run alongside of the patients sample show appropriate staining. Internal positive and negative controls when available are evaluated Immunohistochemistry technical testing was performed at [facility], Pathology Laboratory where it was developed and its performance characteristics were determined. It has not been cleared or approved by the U.S. Food and Drug Administration. The FDA has determined that such clearance or approval is not necessary. The test is used for clinical purposes. It should not be regarded as investigational or for research. This laboratory is certified under the Clinical Laboratory Improvement Amendments of 1988 (CLIA-88) as qualified to perform high complexity clinical laboratory testing. Gross assessment was [facility] ELENAS [facility] performed at [place], Department of [facility] TER Pathology, [address] [place] [id number], Technical component [facility] performed at [place], Department of [facility] TER Pathology, [address] [place] [address], Professional component [facility] was performed at Center, Department of [facility] TER Pathology, [address] [place] [address], Specimen Body Fluid Narrative Performed At This result has an attachment that is n ot available. Performing Organization Address City/[facility]/Zipcode Ph one Number [address] [address] MEDICAL CENTER * Manual Differential (09/14/2019 4:17 AM CHARGE POSTER) Only the most recent of 6 results within the time period is included. % Neutros 79 % [facility] % Lymphs 18 % [facility] % Eos 3 % [facility] # Neutros 9.95 (H) 1.56 - 6.13 K/ul [facility] # Lymphs 2.27 1.18 - 3.74 K/ul [facility] # Eos 0.38 (H) 0.04 - 0.36 K/uL [facility] Total Counted 100 [facility] Platelet Morphology Normal [facility] Toxic Granulation Present [facility] Polychromasia 1+ few [facility] Hypochromia 1+ few [facility] Anisocytosis 1+ few [facility] Macrocytes 1+ few [facility] Artifact Present [facility] Platelet Conc Decreased [facility] Specimen Blood Narrative Performed At Edge Trimmer ID - [place] Li [facility] User comments: [facility] Slide comments: Performing Organization Address City/State/Zipcode Ph one Number [facility] [address] [place], [place] [phone] [place] [address] * Phosphorus (09/12/2019 4:49 AM CHARGE POSTER) Only the most recent of 8 results within the time period is included. Phosphorus 2.4 2.3 - 4.7 mg/dL [facility] Specimen Blood Narrative Performed At Edge Trimmer ID - [place] [facility] Performing Organization Address City/[facility] Ph one [address] 770 [facility] * Potassium (09/09/2019 5:38 PM CHARGE POSTER) Only the most recent of 2 results within the time period is included. Potassium 3.4 (L) 3.5 - 5.1 meq/L [facility] Specimen Blood Narrative Performed At Edge Trimmer ID - IHSAN Coy [facility] Performing Organization Address City/[facility] Ph one [address] 770 0 [phone] [place] [address] * Bilirubin, direct (09/09/2019 5:11 AM CHARGE POSTER) Bilirubin, Direct 10.9 (H)Comment: Specimen 0.1 - 0.5 mg/dL [facility] slightly hemolyzed [facility] Specimen Blood Narrative Performed At Edge Trimmer ID - JERMAINE Noonan [facility] Performing Organization Address [facility] Ph one [address] 770 [facility] * Digoxin level (09/09/2019 5:11 AM CHARGE POSTER) Digoxin Lvl 0.4 (L) 0.8 - 2.0 ng/mL [facility] Specimen Blood Narrative Performed At Edge Trimmer ID - ARMANDO [facility] Performing Organization Address City/[facility] Ph one [address] 770 [facility] * Blood gas, arterial (09/09/2019 3:08 AM CHARGE POSTER) Only the most recent of 2 results within the time period is included. pH, Arterial 7.47 (H) 7.35 - 7.45 [facility] pCO2, Arterial 28 (L) 35 - 45 mmHg [facility] pO2, Arterial 78 (L) 80 - 90 mmHg [facility] O2 Sat, Arterial 96.5 96.0 - 97.0 % [facility] HCO3, Arterial 20 (L) 21 - 29 mmol/L [facility] Base Excess, Arterial -2.9 (L) -2.0 - 3.0 mmol/L [facility] Patient Temperature 36.8 C [facility] FIO2 28.0 % [facility] Specimen Blood, Arterial Performing Organization Address City/State/Zipcode Ph one Number [address] 7703 [facility] * XR abdomen / KUB 1 view (09/09/2019 2:16 AM CHARGE POSTER) Specimen Narrative Performed At FINAL REPORT RIS RAD, ABDOMEN/KUB, 1 VIEW AP CLINICAL HISTORY: new abdominal pain, w orst in LLQ TECHNIQUE: RAD, ABDOMEN/KUB, 1 VIEW AP COMPARISON: CT abdomen pelvis 09/06/2019 IMPRESSION: The bowel gas pattern is nonspecific/no nobstructive. No portal venous gas or pneumatosis intestinalis. No juan pablo e air. Subhepatic biliary metallic stent. Thoracic and lumbar spo ndylosis. Stable T12 superior endplate concave deformity. Signed: Gabino Werner MD Report Verified Date/Time: 0 02:38:19 Procedure Note Interface, External Ris In - 09/09/2019 2:41 AM CHARGE POSTER FINAL REPORT RAD, ABDOMEN/KUB, 1 VIEW AP CLINICAL HISTORY: new abdominal pain, worst in LLQ TECHNIQUE: RAD, ABDOMEN/KUB, 1 VIEW AP COMPARISON: CT abdomen pelvis 09/06/2019 IMPRESSION: The bowel gas pattern is nonspecific/nonobstructive. No portal venous gas or pneumatosis intestinalis. No free air. Subhepatic biliary metallic stent. Thoracic and lumbar spondylosis. Stable T12 superior endplate concave deformity. Signed: Gabino Werner MD Report Verified Date/Time: 09/09/2019 02:38:19 Performing Organization Address [facility] Ph one Number GE RIS * ECHOCARDIOGRAM REPORT - SCAN (09/08/2019 9:12 PM CHARGE POSTER) Narrative Performed At This result has an attachment that is n ot available. * Blood Culture - Routine (Right Venipuncture) (09/08/2019 4:48 PM CHARGE POSTER) Only the most recent of 6 results within the time period is included. Result No growth in 5 days [facility] Specimen Blood Performing Organization Address [facility] one Number [address] 7[address] [facility] * Clostridium difficile [facility] Toxin (09/08/2019 4:30 PM CHARGE POSTER) C. Difficle Toxin Negative Negative [facility] C. Difficile GDH Antigen NegativeComment: No indication Negat harvey [facility] of Clostridium difficile [facility] infection and no colonization. Discontinue enteric isolation and therapy. Specimen Stool Narrative Performed At Testing performed by Ale[employer] Rapid Cassette Assay.F or GDH, published [facility] sensitivity of the assay is 98.7% ralph red to cytotoxicity testing.For Toxin [facility] AB, published sensitivity is 87.8% and specificity 99.4% compared to cytotoxicity testing. Verification of kit performance was don e by the [facility] Microbiology Lab prior to clinical use. Performing Organization Address [facility] Ph one Number [address]703 0 [phone] [address] * Heparin antibody (09/08/2019 3:53 PM CHARGE POSTER) Heparin Ab Negative Negative [facility] Heparin Antibody Optical 0.107 <0.[address] [facility] Density [facility] 4T Total Score 5 [facility] Specimen Blood Narrative Performed At Probability of HIT based on scoring system: [facility] 6-8 = High probability; 4-5 = intermediate probabilit y; 0-3 = low probability [facility] Performing Organization Address City/[facility] Ph one Number [address] 0 [phone] [place] [address] * Lactic Acid, Arterial (09/08/2019 1:17 PM CHARGE POSTER) Only the most recent of 2 results within the time period is included. Lactate, Art 2.1 0.5 - 2.2 mmol/L [facility] Specimen Blood, Arterial Narrative Performed At Edge Trimmer ID - PIAYA L [facility] Specimen moderately icteric [facility] Performing Organization Address City/[facility] Ph one [address] 770 0 [phone] [place] [address] * Fibrinogen (09/08/2019 8:35 AM CHARGE POSTER) Fibrinogen 784 (H) 225 - 434 mg/dl [facility] Specimen Blood Performing Organization Address City/[facility]/Zipcode Ph one Number [address] 0 [phone] [place] [address] * Lactate dehydrogenase (LDH) (09/08/2019 8:35 AM CHARGE POSTER) LDH 246 (H) 125 - 220 U/L [facility] Specimen Blood Narrative Performed At Edge Trimmer ID - PIAYA L [facility] Performing Organization Address City/[facility]/Zipcode Ph one [address]703 0 [phone] [address] * Haptoglobin (09/08/2019 8:35 AM CHARGE POSTER) Haptoglobin 136 14 - 258 mg/dL [facility] Specimen Blood Narrative Performed At Edge Trimmer ID - PIILENE Palacio [facility] Performing Organization Address City/State/Zipcode Ph one Number [facility] [address] [address] [address] [phone] [address] * US Hepatic Portal Vessel with Doppler (09/07/2019 9:00 PM CHARGE POSTER) Specimen Narrative Performed At FINAL REPORT [facility] HISTORY : Persistent mild intrahepatic prominence, right portal vein COMPARISON : No ultrasound comparisons available for review COMMENT : Right upper quadrant ultrasound examina tion of the abdomen with color Doppler and spectral evaluation of the abdominal vasculature was performed. The liver is mildly enlarged and homogeneous in echo-texture without evidence of a foca l mass.The gallbladder contains echogenic sludge. No gallstone s are identified. There is no gallbladder wall thickening or perichol ecystic fluid. There is mild intrahepatic biliary dilatation. A meta llic stent is identified within the common bile duct which measu res 1 cm in diameter. There is a 4.2 cm hypoechoic mass in the head of the pancreas. The right kidney measures 10.8 cm in length. Ther e is no evidence of cysts, masses, stones or hydronephrosis. There is no ascites. There is a small r ight pleural effusion. The main portal vein demonstrates hepat opedal flow and measures 1.3 cm in diameter with a peak systolic mikhail ocity of 0.19 m/s. The left and right portal veins demonstrates hep atopedal and flow respectively. No thrombus is identified in the portal veins. The resistive index of the proper hepat ic artery is 0.7 with an acceleration time of 0.06 sec. The resi stive index of the right hepatic artery is 0.8 and of the left h epatic artery is 0.8. The visualized IVC, hepatic, and spleni c veins are patent with appropriate directional flow. IMPRESSION : 1. Mild intrahepatic or dilatation. 2. Gallbladder sludge. No evidence of a cute cholecystitis. 3. Pancreatic head mass. 4. Patent hepatic vasculature with norm al directional flow. Signed: Jose Alberto Turner MD Report Verified Date/Time: 0 14:01:36 Reading Location: [facility] [id number] Consult Reading Room Procedure Note Interface, External Ris In - 09/08/2019 2:01 PM CHARGE POSTER FINAL REPORT HISTORY : Persistent mild intrahepatic prominence, right portal vein COMPARISON : No ultrasound comparisons available for review COMMENT : Right upper quadrant ultrasound examination of the abdomen with color Doppler and spectral evaluation of the abdominal vasculature was performed. The liver is mildly enlarged and homogeneous in echo-texture without evidence of a focal mass. The gallbladder contains echogenic sludge. No gallstones are identified. There is no gallbladder wall thickening or pericholecystic fluid. There is mild intrahepatic biliary dilatation. A metallic stent is identified within the common bile duct which measures 1 cm in diameter. There is a 4.2 cm hypoechoic mass in the head of the pancreas. The right kidney measures 10.8 cm in length. There is no evidence of cysts, masses, stones or hydronephrosis. There is no ascites. There is a small right pleural effusion. The main portal vein demonstrates hepatopedal flow and measures 1.3 cm in diameter with a peak systolic velocity of 0.19 m/s. The left and right portal veins demonstrates hepatopedal and flow respectively. No thrombus is identified in the portal veins. The resistive index of the proper hepatic artery is 0.7 with an acceleration time of 0.06 sec. The resistive index of the right hepatic artery is 0.8 and of the left hepatic artery is 0.8. The visualized IVC, hepatic, and splenic veins are patent with appropriate directional flow. IMPRESSION : 1. Mild intrahepatic or dilatation. 2. Gallbladder sludge. No evidence of ac mohegan cholecystitis. 3. Pancreatic head mass. 4. Patent hepatic vasculature with judie l directional flow. Signed: Jose Alberto Turner MD Report Verified Date/Time: 09/08/2019 14:01:36 Reading Location: [facility] B1 C013W Consult Reading Room Performing Organization Address City/State/Zipcode Ph one Number GE RIS * 2D Echo W/Doppler(CW/PW/Color) (09/07/2019 2:48 PM CHARGE POSTER) Ejection Fraction [facility] ECHO HEARTLAB [facility] Specimen Narrative Performed At Transthoracic Echocardiography Report (TTE) [facility] ECH O HEARTLAB Demographics [facility] Patient Name MAURA TONY Date of Study 09/07/2019 OJ [id number] Gender Female Visit Number [id number] Unknown [id number] Room Number 7303 Number Date of Birth1940 Referring Physician Gale Mckenna MD Age79 year(s)Service Car Operator Laz Arauz, InterpretingGale Mckenna MD RDCSPhysician Mecca Lux MD Procedure Type of Study TTE procedure:2DECHO W DO PPLER(CW/PW/COLOR) (STAT) Indications:Elevated Troponin and S/P C ABG. Clinical History HGB 11.6 HCT 34.4 % ADENOCARCINOMA OF PANCREAS, DM II, CKD III, CAD S/P CABG X3, HTN, HLD, DEPRESSION, PAD, PVD, PVC, BUCKY ON CPAP Contrast Medium: Definity. Amount - 4 m l Height: 68 inches Weight: 86.18 kg (190 lbs) BSA: 2 m^2 BMI: 28.89 kg/m^2 HR: 100 bpm BP: 139/53 mmHg Previous Study No prior studies available for comparis on. Signature Findings Technical Quality: Technically adequate exam. Left Ventricle LV endoc ardium is adequately visualized with IV ultrasound enhancing agent. The left ventricle is chamber size (by vol index) is normal (female - LVED vol - 29-61ml/m2). No evidence of LV hypertrophy. Septal motion is abnormal, likely related to prior cardiac surgery . The other segments have low normal contractility. Global LV systolic function lower limits of normal . LVEF by Bolaños's method of disk assessment is lower limits of normal (50-55%) . Degree of diastolic dysfunction (LAP assessment) is inconclusive due to arrhythmia . Left AtriumLA s ize is normal (16-34 ml/m2) . Right VentricleRV chamb er size is mildly enlarged . Global RV systolic function is normal . Right Atrium RA cav ity size is normal . Aortic Valve Mild A oV cusp thickening. No evidence of aortic regurgitation. Mitral Valve Mild m itral annular calcification. Trace mitral regurgitation. Tricuspid ValveTV struc ture is normal. A trace of tricuspid regurgitation. Unable to estimate peak systolic PA pressure; inadequate TR velocity signal. Pulmonic Valve Normal P V structure and function by limited views and Doppler. Aorta Aortic root size (SInus of Valsalva diameter) is normal . PericardiumNo p ericardial effusion is visualized. IVC/SVC/PA/PV/PleuralThe estimated RA pressure by IVC dynamics 5-10mmHg . Chambers/Structures Left Atrium LA Volume: 56.17 ml LA Area: 19.54 cm^2 LA Vol. Index: 28 ml/m^2 Left Ventricle LVIDd: 4.56 cm LVIDs: 2.76 cm LV Septum Diastolic: 1.06 cm LV PW Diastolic: 1.12 cm LV Length: 7.28 cm LVEDV Bolaños's:60.24 ml LV FS: 39.5 % LVESV Bolaños's:28.16 ml LVEF Bolaños's: 53.2 % LVEDVI: 30 ml/m^2 LVESVI: 14 ml/m^2 LVOT Diameter: 1.91 cm Right Atrium RA Vol. (Sngl Plane): 44.89 ml Aorta Ao Root S of Tanika.: 2.82 cm Doppler/Quantitative Measurements Mitral Valve MV Peak E-Wave: 0.88 m/s MV Peak A-Wave: 1.11 m/s E/A Ratio: 0.79 Peak Gradient: 3.1 mmHg Deceleration Time: 189.6 msec MV Mikhail. Peak: Tissue Doppler E' Lateral Velocity: 0.07 m/s Aortic Valve Peak Velocity: 1.9 m/s Mean Velocity: 1.46 m/s Peak Gradient: 14.37 mmHg Mean Gradient: 9.22 mmHg AV Area (continuity): 2.25 cm^2 AV VTI: 34.83 cm AV DVI: 0.78 LVOT Peak Velocity: 1.5 m/s Peak Gradient: 9.02 mmHg Mean Velocity: 1.09 m/s Mean Gradient: 5.42 mmHg LVOT Diameter: 1.91 cm LVOT VTI: 27.32 cm LVOT Area: 2.87 cm^2 LVOT SV:78.24 ml LVOT CO: 7.82 l/min LVOT CI: 3.91 l/min/m^2 Procedure Note Interface, External Ris In - 09/08/2019 7:49 AM CHARGE POSTER Transthoracic Echocardiography Report (TTE) Demographics Patient Name MAURA TONY Date of Study 09/07/2019 OJ Gender Female Visit Number [id number] Race Unknown Room Number 7303 Number Date of 1940 Referring Physician Gale Mckenna MD Age 79 year(s) Service Car Operator Laz Blas Elevator Technician Marilee Arauz, Interpreting Gale Mckenna MD [facility] Physician Mecca Lux MD Procedure Type of Study TTE procedure:2DECHO W DOPPLER(CW/PW/COLOR) (STAT) Indications:Elevated Troponin and S/P CABG. Clinical History HGB 11.6 HCT 34.4 % ADENOCARCINOMA OF PANCREAS, DM II, CKD III, CAD S/P CABG X3, HTN, HLD, DEPRESSION, PAD, PVD, PVC, BUCKY ON CPAP Contrast Medium: Definity. Amount - 4 ml Height: 68 inches Weight: 86.18 kg (190 lbs) BSA: 2 m^2 BMI: 28.89 kg/m^2 HR: 100 bpm BP: 139/53 mmHg Previous Study No prior studies available for comparison. Signature Findings Technical Quality: Technically adequate exam. Left Ventricle LV endocardium is adequately visualized with IV ultrasound enhancing agent. The left ventricle is chamber size (by vol index) is normal (female - LVED vol - 29-61ml/m2). No evidence of LV hypertrophy. Septal motion is abnormal, likely related to prior cardiac surgery . The other segments have low normal contractility. Global LV systolic function lower limits of normal . LVEF by Bolaños's method of disk assessment is lower limits of normal (50-55%) . Degree of diastolic dysfunction (LAP assessment) is inconclusive due to arrhythmia . Left Atrium LA size is normal (16-34 ml/m2) . Right Ventricle RV chamber size is mildly enlarged . Global RV systolic function is normal . Right Atrium RA cavity size is normal . Aortic Valve Mild AoV cusp thickening. No evidence of aortic regurgitation. Mitral Valve Mild mitral annular calcification. Trace mitral regurgitation. Tricuspid Valve TV structure is normal. A trace of tricuspid regurgitation. Unable to estimate peak systolic PA pressure; inadequate TR velocity signal. Pulmonic Valve Normal PV structure and function by limited views and Doppler. Aorta Aortic root size (SInus of Valsalva diameter) is normal . Pericardium No pericardial effusion is visualized. IVC/SVC/PA/PV/Pleural The estimated RA pressure by IVC dynamics 5-10mmHg . Chambers/Structures Left Atrium LA Volume: 56.17 ml LA Area: 19.54 cm^2 LA Vol. Index: 28 ml/m^2 Left Ventricle LVIDd: 4.56 cm LVIDs: 2.76 cm LV Septum Diastolic: 1.06 cm LV PW Diastolic: 1.12 cm LV Length: 7.28 cm LVEDV Bolaños's:60.24 ml LV FS: 39.5 % LVESV Bolaños's:28.16 ml LVEF Bolaños's: 53.2 % LVEDVI: 30 ml/m^2 LVESVI: 14 ml/m^2 LVOT Diameter: 1.91 cm Right Atrium RA Vol. (Sngl Plane): 44.89 ml Aorta Ao Root S of Tanika.: 2.82 cm Doppler/Quantitative Measurements Mitral Valve MV Peak E-Wave: 0.88 m/s MV Peak A-Wave: 1.11 m/s E/A Ratio: 0.79 Peak Gradient: 3.1 mmHg Deceleration Time: 189.6 msec MV Mikhail. Peak: Tissue Doppler E' Lateral Velocity: 0.07 m/s Aortic Valve Peak Velocity: 1.9 m/s Mean Velocity: 1.46 m/s Peak Gradient: 14.37 mmHg Mean Gradient: 9.22 mmHg AV Area (continuity): 2.25 cm^2 AV VTI: 34.83 cm AV DVI: 0.78 LVOT Peak Velocity: 1.5 m/s Peak Gradient: 9.02 mmHg Mean Velocity: 1.09 m/s Mean Gradient: 5.42 mmHg LVOT Diameter: 1.91 cm LVOT VTI: 27.32 cm LVOT Area: 2.87 cm^2 LVOT SV:78.24 ml LVOT CO: 7.82 l/min LVOT CI: 3.91 l/min/m^2 Performing Organization Address [facility] one [facility] ECHO HEARTLAB [facility] CPACS * Platelet count (09/07/2019 1:35 PM CHARGE POSTER) Platelets 80 (L) 150 - 450 K/CU MM [facility] Specimen Blood Narrative Performed At Edge Trimmer ID - [id number] [facility] Performing Organization Address [facility] one Number [address] 770 [facility] * Hemoglobin A1c (09/06/2019 8:17 PM CHARGE POSTER) Hemoglobin A1C 6.5 (H) 4.3 - 6.1 % [facility] Specimen Blood Performing Organization Address [facility] one [address] 7[address] [facility] * Iron, TIBC, % sat. (without ferritin) (09/06/2019 4:08 PM CHARGE POSTER) Iron 12.0 (L) 40.0 - 160.0 ug/dL [facility] TIBC 236 (L) 250 - 450 ug/dL [facility] Iron % Saturation 5 (L) 20 - 55 % [facility] Specimen Blood Narrative Performed At Edge Trimmer ID - ADMIN [facility] Performing Organization Address City/[facility] Ph one Number [address] 0 [phone] [place] [address] * Ferritin (09/06/2019 4:08 PM CHARGE POSTER) Ferritin 391 (H) 5 - 275 ng/mL [facility] Specimen Blood Narrative Performed At Edge Trimmer ID - ADMIN [facility] Performing Organization Address [facility] Ph one Number [place] [address] [address] [phone] [address] * Reticulocyte count (09/06/2019 1:18 PM CHARGE POSTER) % Retic 5.3 (H) 0.5 - 1.7 % [facility] Specimen Blood Narrative Performed At Edge Trimmer ID - [id number] [facility] Performing Organization Address [facility] Ph one Number [place] [address] 0 [phone] [address] * Sodium, random urine (09/06/2019 12:29 PM CHARGE POSTER) Sodium Urine 58 meq/L [facility] Specimen Urine Narrative Performed At Reference Range: No Normals [facility] Edge Trimmer ID - DB [facility] Performing Organization Address City/[facility] Ph one Number [place] [address] 0 [phone] [address] * Procalcitonin (09/06/2019 9:48 AM CHARGE POSTER) Procalcitonin 39.98 (HH) <0.05 ng/mL [facility] Specimen Blood Narrative Performed At SEPSIS RISK (ng/mL) [facility] Low:0.05-0.50 [facility] Intermediate: 0.51-2.00 High: >=2.01 Performing Organization Address City/State/Zipcode Ph one Number [facility] [address] [place], [place] [address] * CT abdomen pelvis without contrast (09/06/2019 8:00 AM CHARGE POSTER) Specimen Narrative Performed At FINAL REPORT [facility] TECHNIQUE: CT of the abdomen and pelvis WITHOUT intravenous contrast and WITHOUT oral contrast. Dose modulat ion, iterative reconstruction, and/or weight-based adjustment of the m A/kV was utilized to reduce the radiation dose to as low as reasona gilda achievable. INDICATION: 79-year-old woman with abdo heladio pain and pancreatic tumor. COMPARISON: Abdomen MRI 08/17/2019. FINDINGS: ABSENCE OF INTRAVENOUS CONTRAST DECREAS ES SENSITIVITY FOR DETECTION OF FOCAL LESIONS AND VASCULAR PATHOLOGY . LOWER THORAX: Mild dependent atelectasi s in both lower lobes. HEPATOBILIARY: No focal hepatic lesions . Interval placement of a metallic stent in the common duct. Pers istent mild intrahepatic biliary ductal prominence. Layering hyp erdensity in the gallbladder, likely sludge. SPLEEN: The spleen is prominent measure s 13.5 cm in the craniocaudal dimension. PANCREAS: No significant change in full ness of the pancreatic head, consistent with the previously describe d mass, with atrophy and ductal dilatation up to 0.7 cm in the u pstream pancreas. ADRENALS: No adrenal nodules. KIDNEYS/URETERS: No hydronephrosis, sto ismael, or solid mass lesions. PELVIC ORGANS/BLADDER: The bladder is d ecompressed by Boogie catheter. Air within the bladder lumen, likely re lated to catheterization. Prior hysterectomy. No adnexal mass. PERITONEUM/RETROPERITONEUM: No free air or fluid. LYMPH NODES: No significant change in s ize of the prominent portacaval lymph node measures 1.5 cm. VESSELS: Atherosclerotic vascular calci fications in the abdominal aorta and branch vessels. Infrarenal ab dominal aortic aneurysm measures up to approximately 2.8 cm in diameter. GI TRACT: No distention or wall thicken ing. Scattered colonic diverticula. Normal appendix. BONES AND SOFT TISSUES: Degenerative ch anges of the visualized spine. Age-indeterminate mild compression defo rmity of the T12 vertebral body with Schmorl's node formation and without retropulsion. Foci of fat stranding and air in the subcutaneo us fat of the right anterior abdominal wall, likely related to recen t medication injections. IMPRESSION: No significant change in the pancreatic head mass. Interval placement of a metallic stent in the common duct. Persistent mild intrahepatic biliary ductal promin ence. This finding may be correlated with liver function tests to exclude cholestasis. No significant change in the prominent periportal lymph node. Metastasis cannot be excluded. Age-indeterminate mild compression defo rmity of T12 without retropulsion. Infrarenal abdominal aortic aneurysm me asures 2.8 cm in diameter.A follow-up examination is recommended ev sandoval 5 years. Signed: Manda Sanders MD Report Verified Date/Time: 0 10:46:13 Reading Location: [facility] C013Y CT Body Reading Room Procedure Note Interface, External Ris In - 09/06/2019 10:48 AM CHARGE POSTER FINAL REPORT TECHNIQUE: CT of the abdomen and pelvis WITHOUT intravenous contrast and WITHOUT oral contrast. Dose modulation, iterative reconstruction, and/or weight-based adjustment of the mA/kV was utilized to reduce the radiation dose to as low as reasonably achievable. INDICATION: 79-year-old woman with abdominal pain and pancreatic tumor. COMPARISON: Abdomen MRI 08/17/2019. FINDINGS: ABSENCE OF INTRAVENOUS CONTRAST DECREASES SENSITIVITY FOR DETECTION OF FOCAL LESIONS AND VASCULAR PATHOLOGY. LOWER THORAX: Mild dependent atelectasis in both lower lobes. HEPATOBILIARY: No focal hepatic lesions. Interval placement of a metallic stent in the common duct. Persistent mild intrahepatic biliary ductal prominence. Layering hyperdensity in the gallbladder, likely sludge. SPLEEN: The spleen is prominent measures 13.5 cm in the craniocaudal dimension. PANCREAS: No significant change in fullness of the pancreatic head, consistent with the previously described mass, with atrophy and ductal dilatation up to 0.7 cm in the upstream pancreas. ADRENALS: No adrenal nodules. KIDNEYS/URETERS: No hydronephrosis, stones, or solid mass lesions. PELVIC ORGANS/BLADDER: The bladder is decompressed by Boogie catheter. Air within the bladder lumen, likely related to catheterization. Prior hysterectomy. No adnexal mass. PERITONEUM/RETROPERITONEUM: No free air or fluid. LYMPH NODES: No significant change in size of the prominent portacaval lymph node measures 1.5 cm. VESSELS: Atherosclerotic vascular calcifications in the abdominal aorta and branch vessels. Infrarenal abdominal aortic aneurysm measures up to approximately 2.8 cm in diameter. GI TRACT: No distention or wall thickening. Scattered colonic diverticula. Normal appendix. BONES AND SOFT TISSUES: Degenerative changes of the visualized spine. Age-indeterminate mild compression deformity of the T12 vertebral body with Schmorl's node formation and without retropulsion. Foci of fat stranding and air in the subcutaneous fat of the right anterior abdominal wall, likely related to recent medication injections. IMPRESSION: No significant change in the pancreatic head mass. Interval placement of a metallic stent in the common duct. Persistent mild intrahepatic biliary ductal prominence. This finding may be correlated with liver function tests to exclude cholestasis. No significant change in the prominent periportal lymph node. Metastasis cannot be excluded. Age-indeterminate mild compression deformity of T12 without retropulsion. Infrarenal abdominal aortic aneurysm measures 2.8 cm in diameter. A follow-up examination is recommended every 5 years. Signed: Manda Sanders MD Report Verified Date/Time: 09/06/2019 10:46:13 Reading Location: [facility] C013Y CT Body Reading Room Performing Organization Address City/[facility] Ph one Number RIS * Ketones, blood (09/06/2019 5:26 AM CHARGE POSTER) Only the most recent of 2 results within the time period is included. Ketones, Blood 0.2 <0.4 mmol/L [facility] Specimen Blood Performing Organization Address [facility] Ph one Number [place] [address] [facility] * Blood Culture Panel(BioFire) (09/06/2019 1:55 AM CHARGE POSTER) [place]ISTER[place] MONOCYTOGENES Not detected Not detected [facility] STAPHYLOCOCCUS Not detected Not detected [facility] STAPHYLOCOCCUS AUREUS Not detected Not detected [facility] Streptococcus Detected (A) Not detected [facility] Comment: [facility] First line therapy: Vancomycin De-escalate based on susceptibilities Reference Range: Not Detected STREPTOCOCCUS AGALACTIAE Not detected Not detected [facility] (GROUP B) [facility] STREPTOCOCCUS PNEUMONIAE Detected (A) Not detected [facility] Comment: [facility] First line therapy: Ceftriaxone If meningitis, add vancomycin while awaiting susceptibilities Reference Range: Not Detected Streptococcus pyogenes Not detected Not detected [facility] (Group A) [facility] ACINETOBACTER BAUMANNII Not detected Not detected [facility] HAEMOPHILUS INFLUENZAE Not detected Not detected [facility] NEISSERIA MENINGITIDIS Not detected Not detected [facility] ENTEROBACTERIACEAE Detected (A) Not detected [facility] ENTEROBACTER CLOACOE Detected (A) Not detected [facility] Comment: [facility] Enterobacter cloacae complex KPC not detected (a carbapenamase gene) First-line therapy: Cefepime or Meropenem De-escalate based on susceptibilities Reference Range: Not Detected KLEBSIELLA OXYTOCA Not detected Not detected [facility] KLEBSIELLA PNEUMONIAE Not detected Not detected [facility] PROTEUS [facility] SERRATIA MARCESCENS Not detected Not detected [facility] JAREK ALBICANS Not detected Not detected [facility] JAREK GLABRATA Not detected Not detected [facility] JAREK KRUSEI Not detected Not detected [facility] JAREK PARAPSILOSIS Not detected Not detected [facility] JAREK TROPICALIS Not detected Not detected [facility] ESCHERICHIA COLI Not detected Not detected [facility] METHICILLIN-RESISTANCE [facility] VANCOMYCIN-RESISTANCE [facility] CARBAPENEM-RESISTANCE Not detected Not detected [facility] ENTEROCOCCUS Not detected Not detected [facility] PSEUDOMONAS AERUGINOSA Not detected Not detected [facility] Specimen Blood Narrative Performed At Other bacteria and resistance markers not targeted by this PCR panel cannot be [facility] excluded; therefore clinical correlation and follow u p of serology, culture [facility] results, and other molecular studies is required. The results are not intended to be used as the sole means for clinic al diagnosis or patient management decisions. This sample was tested at e [facility] using the [facility] Blood Cultu re ID Panel. It is FDA cleared and has been verified and approved by the [facility] for clinical use. This laboratory is CLIA-c ertified and [employer] ([employer])-accredited to [facility] high complexity testing. Performing Organization Address City/State/Zipcode Ph one Number [address] [facility] * Urinalysis w/Microscopic (09/06/2019 1:55 AM CHARGE POSTER) Color, UA Bruni [facility] Clarity, UA Hazy [facility] Specific [place], UA 1.019 1.001 - 1.035 [facility] pH, UA 6.0 5.0 - 8.0 [facility] Protein, UA 50 mg/dL (A) Negative [facility] Glucose, UA 30 mg/dL (A) Negative [facility] Ketones, UA Negative Negative [facility] Bilirubin, UA Positive (A) Negative [facility] Blood, UA Trace (A) Negative [facility] Nitrite, UA Negative Negative [facility] Leukocytes, UA Negative Negative [facility] Urobilinogen, UA 3.0 (H) 0.2 - 1.0 mg/dL [facility] RBC, UA 21 /HPF [facility] WBC, UA 10 /HPF [facility] Squam Epithel, UA 4 /HPF [facility] Granular Casts, UA 5 /LPF [facility] Amorphous Crystals Few [facility] Specimen Source [facility] Specimen Urine Narrative Performed At Edge Trimmer ID - [auto] [facility] Edge Trimmer ID - [facility] Performing Organization Address City/State/[facility] Ph one Number [address] [facility] * Urine culture (09/06/2019 1:55 AM CHARGE POSTER) Result See comment [facility] Specimen Urine Narrative Performed At >100,000 col/mL skin nieves [facility] Performing Organization Address City/State/Zipcode Ph one Number [phone] [place] [address] * Ammonia (09/06/2019 1:26 AM CHARGE POSTER) Ammonia 55 18 - 72 mol/L [facility] Specimen Blood Narrative Performed At Edge Trimmer ID - JOY M [facility] Performing Organization Address City/State/Zipcode Ph one Number [address] [facility] * Cardiac Enzymes - CPK (09/06/2019 1:10 AM CHARGE POSTER) Total CK 66 29 - 200 U/L [facility] Specimen Blood Narrative Performed At Edge Trimmer ID - JOY M [facility] Performing Organization Address City/State/Zipcode Ph one Number [facility] [address] [place] [phone] [facility] * ECG/EKG Interpretation (09/06/2019 12:47 AM CHARGE POSTER) Narrative [place]formed [place] [address]:20 AM ECG/EKG Interpretation Date/Time: 09/06/2019 1:28 AM Performed by: Julien Krishna MD Authorized by: Julien Krishna M D The ECG was interpreted by ED physician . This ECG was not compared with previous ECG(s).The ECG is interpreted as sinus rhythm. Rate is normal rate. Deming is left. Clinical Impression: non-specific ECGEC G reviewed and does not meet STEMI criteria. Patient tolerance: Patient to lerated the procedure well with no immediate complications * CRITICAL CARE (09/06/2019 12:47 AM CHARGE POSTER) Narrative Performed [place] [address]:20 AM Critical Care Performed by: Julien Krishna MD Authorized by: Julien Krishna M D Total critical care time: 40 minutes Critical care time was exclusive of sep arately billable procedures and treating other patients. Critical care was necessary to treat or prevent imminent or life-threatening deterioration of the f ollowing conditions: metabolic crisis and endocrine crisis. Critical care was time spent personally by me on the following activities: review of old charts, re-evaluation of patient's condition, pulse oximetry, ordering and review of labora tory studies, ordering and review of radiographic studies, ordering and p erforming treatments and interventions, evaluation of patient's response to treatment, development of treatment plan with patient or surro gate and examination of patient. * XR pelvis 1 or 2 views (09/06/2019 12:15 AM CHARGE POSTER) Specimen Narrative Performed At FINAL REPORT GE RIS RAD, PELVIS, 1 OR 2 VIEWS CLINICAL INDICATION:FALL COMPARISON: None FINDINGS: Single frontal view of the pe lvis was obtained. There is no displaced pelvic fracture. The bilateral hip joints are located. There are moderate degenerativ e changes of the left hip joint as evidenced by joint space narro wing and osteophytes. There are degenerative changes of the lower l umbar spine. The sacrum is partially obscured by overlying stool a nd bowel gas. There are calcified bilateral buttock g ranulomas. IMPRESSION: No displaced pelvic fracture. Degenerative changes as described. Signed: Mateo Conway MD Report Verified Date/Time: 0 01:15:07 Procedure Note Interface, External Ris In - 09/06/2019 1:17 AM CHARGE POSTER FINAL REPORT RAD, PELVIS, 1 OR 2 VIEWS CLINICAL INDICATION: FALL COMPARISON: None FINDINGS: Single frontal view of the pelvis was obtained. There is no displaced pelvic fracture. The bilateral hip joints are located. There are moderate degenerative changes of the left hip joint as evidenced by joint space narrowing and osteophytes. There are degenerative changes of the lower lumbar spine. The sacrum is partially obscured by overlying stool and bowel gas. There are calcified bilateral buttock granulomas. IMPRESSION: No displaced pelvic fracture. Degenerative changes as described. Signed: Mateo Conway MD Report Verified Date/Time: 09/06/2019 01:15:07 Performing Organization Address City/State/Zipcode Ph one Number GE RIS * CT brain without IV contrast (09/05/2019 11:32 PM CHARGE POSTER) Specimen Narrative Performed At FINAL REPORT GE [facility] EXAM: CT head without contrast. CLINICAL HISTORY: Head trauma, minor (A ge > 65y). Fall. COMPARISON: CT head 08/22/2008. TECHNIQUE: CT images of the head were o btained without intravenous contrast.This exam was performed ac cording to our departmental dose optimization program which includes aut omated exposure control, adjustment of the mA and/or kV accordin g to patient's size and/or use of iterative reconstructive technique. FINDINGS: There is generalized parenchymal atroph y. There are mild white matter microvascular ischemic changes. There i s intracranial calcific atherosclerosis. There is no acute intracranial hemorrha ge, extra-axial fluid collection, mass effect, herniation, hy drocephalus or large demarcated acute territorial infarct. The basal cisterns are patent. There is a right lens prosthesis. The l eft orbit is unremarkable. The visualized paranasal sinuses and ty mpanomastoid cavities are clear.The skull base and calvarium are intact. IMPRESSION: Mild white matter microvascular ischemi c changes. No acute intracranial hemorrhage or calvarial fr acture. Signed: Mateo Conway MD Report Verified Date/Time: 0 23:41:42 Procedure Note Interface, External Ris In - 09/05/2019 11:43 PM CHARGE POSTER FINAL REPORT EXAM: CT head without contrast. CLINICAL HISTORY: Head trauma, minor (Age > 65y). Fall. COMPARISON: CT head 08/22/2008. TECHNIQUE: CT images of the head were obtained without intravenous contrast. This exam was performed according to our departmental dose optimization program which includes automated exposure control, adjustment of the mA and/or kV according to patient's size and/or use of iterative reconstructive technique. FINDINGS: There is generalized parenchymal atrophy. There are mild white matter microvascular ischemic changes. There is intracranial calcific atherosclerosis. There is no acute intracranial hemorrhage, extra-axial fluid collection, mass effect, herniation, hydrocephalus or large demarcated acute territorial infarct. The basal cisterns are patent. There is a right lens prosthesis. The left orbit is unremarkable. The visualized paranasal sinuses and tympanomastoid cavities are clear. The skull base and calvarium are intact. IMPRESSION: Mild white matter microvascular ischemic changes. No acute intracranial hemorrhage or calvarial fracture. Signed: Mateo Conway MD Report Verified Date/Time: 09/05/2019 23:41:42 Performing Organization Address City/State/Zipcode Ph one Number [email or web address] * REPORT OF PROCEDURE - ENDOSCOPY URL (08/18/2019 2:04 PM CHARGE POSTER) Narrative Performed At This result has an attachment that is n ot available. * [place] ERCP (08/18/2019 2:00 PM CHARGE POSTER) Specimen Narrative Performed At FINAL REPORT [email or web address] A fluoroscopic unit was utilized for a procedure performed in the operating room. No interpretation was r equested. Please refer to the operative report regarding findings. Pl ease refer to PACS for patient radiation dose information. Signed: JR Valente Robert MD Report Verified Date/Time: 0 07:25:48 Reading Location: [facility] Reading Room Procedure Note Interface, External Ris In - 08/23/2019 7:27 AM CHARGE POSTER FINAL REPORT A fluoroscopic unit was utilized for a procedure performed in the operating room. No interpretation was requested. Please refer to the operative report regarding findings. Please refer to PACS for patient radiation dose information. Signed: JR Valente Robert MD Report Verified Date/Time: 08/23/2019 07:25:48 Reading Location: [facility] Reading Room Performing Organization Address City/[facility] Ph one Number GE RIS * FINE NEEDLE ASPIRATE (FNA) REQUEST (08/18/2019 1:44 PM CHARGE POSTER) Cytology See Separate Report [facility] Specimen Fine Needle Aspirate - Pancreas, Head Performing Organization Address City/[facility] Ph one Number [place] [address] [facility] * Fine Needle Aspirate by Clinician (08/18/2019 1:44 PM CHARGE POSTER) Case Report [facility] Case: [id number] Authorizing Provider:Teagan Rock MDCollected: 08/18/2019 1344 Ordering Location: [address] Received: 08/21/2019 0949 Service Pathologist: Ag Keating MD Specimen:Pancreas, Head ADDENDUM Addendum, additional review [facility] with cytologic sample [id number]. [facility] PANCREAS, HEAD MASS FNA BY CLINICIAN (CYTOSPINS AND CELL BLOCK OF ASPIRATE): - POSITIVE FOR MALIGANCY -FEATURES CONSISTENT WITH INVASIVE PANCREATIC CARCINOMA, LARGE DUCTAL TYPE, OR BILIARY TYPE ADENOCARCINOMA. Additional review with Dr. Mihir Johnson and Jason Keating. DIAGNOSIS PANCREAS, HEAD MASS FNA BY [facility] CLINICIAN (CYTOSPINS AND CELL [facility] BLOCK OF ASPIRATE): - HIGHLY SUSPICIOUS FOR INVASIVE PANCREATIC CARCINOMA, LARGE DUCTAL TYPE, OR BILIARY TYPE ADENOCARCINOMA. SEE COMMENT Signing Pathologist Direct Phone Line: [phone] COMMENT The cytologic features of both [facility] the cytospin preparations and [facility] the cell block operations show strips of malignant cells with features of adenocarcinoma, moderately differentiated, and single cells as well. The cell block sample shows associated desmoplasia in a few areas, consistent with invasion; Many other is on plastic fragments do not contain tumor.. There are also foci with features suggestive of vascular invasion. A nerve shows features suggestive of perineural invasion as well, all in the cell block preparation. However, the carcinoma is fragmented and definitive invasive features are somewhat less than noted in the usual invasive pancreatic ductal, or biliary, adenocarcinoma, which have identical cytologic features. Portions of this tumor may represent high-grade intraductal tumor /PAIN. Clinical and endoscopic/radiologic correlation is needed. Two other [facility] pathologists also favor a diagnosis of positive for malignancy this case (YUNIER, NS). Additional levels on three more slides in this case do not reveal more definitive features. CPT Code(s) 70987, 08137 [facility] CLINICAL DATA (2.9 x 3.7 cm) irregular mass [facility] in the pancreatic head; [facility] localized biliary stricture; many thirds of the main bile duct and right and left hepatic ducts are dilated. A sphincterotomy was performed SPECIMEN SOURCE PANCREAS, HEAD MASS FNA [facility] GROSS DESCRIPTION 25 mls in cytorich red; 4 [facility] cytospins, cell block [facility] Collected: [id number] Received: [id number] MICROSCOPIC DESCRIPTION Performed. [facility] Gross assessment was [facility] performed at [place], Department of [facility] TER Pathology, [address] [place] [id number], Technical component was [facility] performed at [place], Department of [facility] TER Pathology, [address] [place] [address], Professional component [facility] was performed at Center, Department of [facility] TER Pathology, [address] [facility], [place] [address], Specimen Fine Needle Aspirate - Pancreas, Head Narrative Performed At This result has an attachment that is n ot available. Performing Organization Address City/State/Zipcode Ph one Number [facility] [address] [place], [place] [address] MEDICAL CENTER * MR abdomen without IV contrast MRCP (08/17/2019 2:13 AM CHARGE POSTER) Specimen Narrative Performed At FINAL REPORT [email or web address] TECHNIQUE: MRI of the abdomen and MRCP WITHOUT intravenous contrast. 3-D volume reconstructions were obtaine d to evaluate the biliary ductal system. INDICATION: Biliary obstruction suspect ed 79 yo with elevated liver enzymes and u ltrasound showing gallbladder mass and dilated pancreatic duct. COMPARISON: Abdominal ultrasound abdome n-pelvis CT 04/06/2007. FINDINGS: ABSENCE OF INTRAVENOUS CONTRAST DECREAS ES SENSITIVITY FOR DETECTION OF FOCAL LESIONS AND VASCULAR PATHOLOGY . LOWER THORAX: Unremarkable. LIVER: No hepatic signal abnormality. N o focal hepatic lesions. Fernie's lobe. BILIARY: Diffuse intrahepatic and extra hepatic ductal dilatation with upper up to narrowing at the distal CBD at the level of pancreatic head. No intraluminal stones. Maximum C BD caliber measure 1.6 cm. Gallbladder is distended with length of 10.4 cm and axial weight of 4.3 cm. The gallbladder wall is mildly thickened. No cholelithiasis. Sludge layers in the gallbladder. SPLEEN: 15.1 cm splenomegaly. Splenule present. PANCREAS: Diffuse lobulated dilation of the main pancreatic duct with abrupt narrowing at the level of pancre atic head/proximal body. Maximum caliber of 0.5 cm. The mass in the pancreatic head measures 4.3 x 3.4 x 3.1 cm. This appears to enc ase and narrow the main portal vein. No other vessels are definitely i nvolved. However, evaluation is suboptimal without the use of intrav enous contrast. Diffuse pancreatic parenchymal atrophy of the b jose de jesus and tail. Multiple distended branch ducts which communicat e with the distended main pancreatic duct as above. ADRENALS: No adrenal nodules. KIDNEYS/URETERS: No hydronephrosis or s olid mass lesions. Simple cysts in the right kidney measure up to 0.9 cm in the interpolar region. PERITONEUM/RETROPERITONEUM: No free flu id. LYMPH NODES: Prominent lymph nodes in t he portacaval region immediately posterior to the mass are s lightly heterogeneous and measure up to 1.6 cm in short axis dime nsion. There is likely a prominent lymph node immediately anteri or to the left hepatic lobe which restricts on diffusion-weighted i maging. This is most likely a normal/reactive lymph node. VESSELS: Unremarkable. Specifically, pa tent portal vein, splenic vein and artery. GI TRACT: No distention or wall thicken ing. BONES AND SOFT TISSUES: Prior median st ernotomy. IMPRESSION: 1.Diffuse dilation of main pancreatic d uct and common bile duct with abrupt narrowing at the pancreatic head associated with a mass which measures up to 4.3 cm. This is most con cerning for pancreatic adenocarcinoma. The main portal vein ap pears to be encased. Evaluation for involvement of other vas culature is suboptimal given the lack of intravenous contrast. 2.The lymph nodes in the peripancreatic region are mildly enlarged and indeterminate. These could be react harvey or metastatic. 3.The gallbladder distention is likely due to the common bile duct obstruction. The mild gallbladder wall thickening may be reactive. No cholelithiasis or choledocholithiasis. 4.Mild splenomegaly. Signed: Rafi Saha MD Report Verified Date/Time: 0 11:16:03 Reading Location: [address] Body Reading Room Procedure Note Interface, External Ris In - 08/17/2019 11:18 AM CHARGE POSTER FINAL REPORT TECHNIQUE: MRI of the abdomen and MRCP WITHOUT intravenous contrast. 3-D volume reconstructions were obtained to evaluate the biliary ductal system. INDICATION: Biliary obstruction suspected 79 yo with elevated liver enzymes and ul trasound showing gallbladder mass and dilated pancreatic duct. COMPARISON: Abdominal ultrasound abdomen-pelvis CT 04/06/2007. FINDINGS: ABSENCE OF INTRAVENOUS CONTRAST DECREASES SENSITIVITY FOR DETECTION OF FOCAL LESIONS AND VASCULAR PATHOLOGY. LOWER THORAX: Unremarkable. LIVER: No hepatic signal abnormality. No focal hepatic lesions. Fernie's lobe. BILIARY: Diffuse intrahepatic and extrahepatic ductal dilatation with upper up to narrowing at the distal CBD at the level of pancreatic head. No intraluminal stones. Maximum CBD caliber measure 1.6 cm. Gallbladder is distended with length of 10.4 cm and axial weight of 4.3 cm. The gallbladder wall is mildly t hickened. No cholelithiasis. Sludge layers in the gallbladder. SPLEEN: 15.1 cm splenomegaly. Splenule present. PANCREAS: Diffuse lobulated dilation of the main pancreatic duct with abrupt narrowing at the level of pancreatic head/proximal body. Maximum caliber of 0.5 cm. The mass in the pancreatic head measures 4.3 x 3.4 x 3.1 cm. This appears to enca se and narrow the main portal vein. No other vessels are definitely involved. However, evaluation is suboptimal without the use of intravenous contrast. Diffuse pancreatic parenchymal atrophy of the body and tail. Multiple distended branch ducts which communicate with the distended main pancreatic duct as above. ADRENALS: No adrenal nodules. KIDNEYS/URETERS: No hydronephrosis or solid mass lesions. Simple cysts in the right kidney measure up to 0.9 cm in the interpolar region. PERITONEUM/RETROPERITONEUM: No free fluid. LYMPH NODES: Prominent lymph nodes in the portacaval region immediately posterior to the mass are slightly heterogeneous and measure up to 1.6 cm in short axis dimension. There is likely a prominent lymph node immediately anterior to the left hepatic lobe which restricts on diffusion-weighted imaging. This is most likely a normal/reactive lymph node. VESSELS: Unremarkable. Specifically, patent portal vein, splenic vein and artery. GI TRACT: No distention or wall thickening. BONES AND SOFT TISSUES: Prior median sternotomy. IMPRESSION: 1.Diffuse dilation of main pancreatic du ct and common bile duct with abrupt narrowing at the pancreatic head associated with a mass which measures up to 4.3 cm. This is most concerning for pancreatic adenocarcinoma. The main portal vein appears to be encased. Evaluation for involvement of other vasculature is suboptimal given the lack of intravenous contrast. 2.The lymph nodes in the peripancreatic region are mildly enlarged and indeterminate. These could be reactive or metastatic. 3.The gallbladder distention is likely d ue to the common bile duct obstruction. The mild gallbladder wall thickening may be reactive. No cholelithiasis or choledocholithiasis. 4.Mild splenomegaly. Signed: Rafi Saha MD Report Verified Date/Time: 08/17/2019 11:16:03 Reading Location: [facility] B[id number] Body Reading Room Performing Organization Address City/State/Zipcode Ph one Number GE RIS after 04/12/2019 Insurance Payer Benefit Subscriber ID Type Phone Address Plan / Group [employer] xxxxxxxxxxx MEDICARE ADV Advance Directives For more information, please contact: [address] [address] Date Inactivated Comments Code Status Date Activated 10/28/2019 1:40 PM Partial Code 10/27/2019 12:35 AM This code status was determined by: Patient Drug Protocol After Arrest Occurs? Yes Mechanical Ventilation with Intubation? No Bag/Mask? Yes Internal/External Pacemaker? Yes Transfer to Critical Care? Yes Chest Compressions? Yes Defibrillation/Cardioversion? Yes 10/27/2019 12:35 AM Full Code 10/26/2019 8:18 PM This code status was determined by: Patient 10/09/2019 12:06 PM Partial Code 10/03/2019 10:36 PM This code status was determined by: Patient Drug Protocol After Arrest Occurs? Yes Mechanical Ventilation with Intubation? No Bag/Mask? No Internal/External Pacemaker? No Transfer to Critical Care? No Chest Compressions? Yes Defibrillation/Cardioversion? No 09/17/2019 9:00 PM Partial Code 09/12/2019 1:50 PM This code status was determined by: Patient Drug Protocol After Arrest Occurs? Yes Mechanical Ventilation with Intubation? No Bag/Mask? No Internal/External Pacemaker? No Transfer to Critical Care? No Chest Compressions? No Defibrillation/Cardioversion? No 09/12/2019 1:49 PM Full Code 09/06/2019 4:50 PM This code status was determined by: Patient
--- OUTSIDE RECORDS SUMMARY | 2020-04-12 21:33 | XMS REPORT | Continuity of Care Document ---
Author Author [facility] t Organization [facility] Address [address] [place] [address] Phone Unavailable Care Team Providers Care Cigar Head Pegger Name Role Phone NONSTAFF PCP Unavailable Isiah CORTEZ, Melyssa Mccann Attphys Jeanna CORTEZ, Patti Attphys [phone] Jj CORTEZ, Eulalio Dyer Attphys [phone] Shweta CORTEZ, Angy Guzman Attphys Bernabe CORTEZ, Grzegorz Solorio Attphys MELYSSA HERRMANN Attphys Unavailable Juan Luis Hills MD Attphys Michael Reagan DO Attphys [phone] Abdifatah CORTEZ, Carlota Gorman Attphys Sebastien CORTEZ, Shankar Attphys Juan Luis HILLS Attphys Unavailable Hemant CORTEZ, Cade Attphys CADE MARCOS Attphys Unavailable ДМИТРИЙ KRISHNA Attphys Unavailable Tomi CORTEZ, Дмитрий Victoria Attphys Shirlene CORTEZ, Karina Vásquez Attphys Yuniel CORTEZ, Sepideh Escobedo Attphys Grabiel MCFADDEN Attphys Unavailable Grabiel Mcfadden DO Grzegorz Attphys Sommer CORTEZ, Skyla Attphys Solitario CORTEZ, Terrence Pyle Attphys [phone] Radha ISRAEL, Matias Bhaktael Attphys [phone] Shweta CORTEZ, Duke Jonesg Attphys WILLY CHAN Attphys Unavailable JJ, TYRESESONIA DYER Admphys Unavailable MICHAEL REAGAN Admphys Unavailable HEMANT, CADE Admphys Unavailable SEPIDEH BRICE Admphys Unavailable SOLITARIO, TERRENCE JESUS Admphys Unavailable JONATAN MANRIQUE Admphys Unavailable Payers Payer Name Policy Type Policy Number Effective Date Expiration Date Caesar vera KELSEYCAREKELSEYCARE MEDICARE ADVxxxxxxxxxxx xxxxxxxxxxx [facility] Kelsey Care Medicare Advantage [id number] [facility] Advance Directives Directive Decision Effective Date Termination Date Comments Sour ce Partial Code This code status was determ ined by: Patient Drug Protocol After Arrest Occurs? Yes Mechanical Ventilation with Intubation? No Bag/Mask? Yes Internal/External Pacemaker? Yes Transfer to Critical Care? Yes Chest Compressions? Yes Defibrillation/Cardioversion? Yes Yes 00:00:00 2019-10-28 00:00:00 [facility] r Problems Condition Name Condition Details Condition Category Status Onset Date Resolution Date Last Treatment Date Treating Clinician Comments Source Paroxysmal A-fib Paroxysmal A-fib Disease Active 2019-10-27 00:00:00 [facility] Epigastric pain Epigastric pain Disease Active 2019-10-26 00:00:00 [facility] Melena Melena Disease Active 2019-10-26 00:00:00 [facility] Recurrent right pleural effusion Recurrent right pleural effusio n Disease Active 2019-10-04 00:00:00 [facility] Dyspnea and respiratory abnormality Dyspnea and respiratory abno rmality Disease Active 2019-10-03 00:00:00 [facility] Bacteremia due to Enterobacter species Bacteremia due to Ent erobacter species Disease Active 2019-09-12 00:00:00 [facility] Encephalopathy in sepsis Encephalopathy in sepsis Disease Acti ve 2019-09-12 00:00:00 [facility] 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 of [place] heart without angina 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 angina pectoris Disease Active 2019-09-12 00:00:00 [facility] Dysphagia Dysphagia Disease Active 2019-09-12 00:00:00 [facility] Severe protein-calorie malnutrition Severe protein-calorie malnu trition Disease Active 2019-09-12 00:00:00 [facility] Physical deconditioning Physical deconditioning Disease Active 2019-09-12 00:00:00 [facility] Severe sepsis Severe sepsis Disease Active 2019-09-11 00:00:00 [facility] Acute metabolic encephalopathy Acute metabolic encephalopathy Disea se Active 2019-09-11 00:00:00 [facility] Acute kidney injury superimposed on CKD Acute kidney injury superimposed on CKD Disease Active 2019-09-11 00:00:00 [facility] Metabolic acidosis Metabolic acidosis Disease Active 2019-09-11 00:00:0 0 [facility] Atrial fibrillation with rapid ventricular response At rial fibrillation with rapid ventricular response Disease Active 2019-09-08 00:00:00 [facility] Demand ischemia of myocardium Demand ischemia of myocardium Disease Active 2019-09-08 00:00:00 [facility] Thrombocytopenia Thrombocytopenia Disease Active 2019-09-08 00:00:00 [facility] Dehydration Dehydration Disease Active 2019-09-06 00:00:00 [facility] Hyperbilirubinemia Hyperbilirubinemia Disease Active 2019-09-06 00:00:0 0 [facility] Diabetic ketosis Diabetic ketosis Disease Active 2019-09-06 00:00:00 [facility] Altered mental status Altered mental status Disease Active 202 00:00:00 [facility] Pancreatic adenocarcinoma Pancreatic adenocarcinoma Disease Ac tive 2019-09-06 00:00:00 [facility] Syncope and collapse Syncope and collapse Disease Active 00:00:00 [facility] Jaundice Jaundice Disease Active 2019-08-16 00:00:00 [facility] 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, 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, with long-term current use of insulin Disease Active 2016-11-16 00:00:00 Overview: a1c 14.8 (11/2016) [facility] Jarek infection of genital region Jarek infection of genital region Disease Active 2016-11-16 00:00:00 [facility] Type 2 diabetes mellitus with ketoacidos is without coma, without long-term current use of insulin Type 2 diabetes mellitus with ketoacidos is without coma, without long-term current use of insulin Disease Active 2016-11-15 00:00: 00 [facility] (coronary artery disease) CAD (coronary artery disease) Disease Active 2015-02-19 00:00:00 [facility] Allergies, Adverse Reactions, Alerts Allergy Name Allergy Type Status Severity Reaction(s) Onset Date Inacti ve Date Treating Clinician Comments Source Penicillin Allergy to Substance Active Mild 2017-08-14 00:00:00 [facility] Jkjiktn-Tda-Vbw Reductase Inhibitor Allergy to Substance Active M ild 2017-08-14 00:00:00 [facility] Atorvastatin Calcium Propensity to adverse reactions Active Other (See Comments) 2016-11-14 00:00:00 Vitamin D may have be en low at the time. [facility] Choline Fenofibrate Propensity to adverse reactions Active Other (See Comments) 2016-11-14 00:00:00 [facility] Atorvastatin Drug Allergy Active 2014-08-31 00:00:00 [facility] Lisinopril Drug Intolerance Active 2014-08-31 00:00:00 cough [facility] Niacin Preparations Drug Intolerance Active 2014-08-31 00:00:00 Leg cramps [facility] Penicillins Drug Allergy Active 2014-08-31 00:00:00 [facility] Pravastatin Drug Allergy Active 2014-08-31 00:00:00 [facility] Lzwaoov-Iwc-Kub Reductase Inhibitors Drug Allergy Active 2014-08-31 00:00:00 [facility] Fenofibric Acid (Choline) Drug Allergy Active 2014-08-31 00 :00:00 [facility] Ezetimibe Drug Allergy Active 2014-08-31 00:00:00 [facility] Family History Family Member Diagnosis Comments Start Date Stop Date Source Natural mother Diabetes [facility] Natural sister Diabetes [facility] Social History Social Habit Start Date Stop Date Quantity Comments Source Sex Assigned At [facility] Cigarettes smoked current (pack per day) - Reported 00:00:00 2019-10-27 00:00:00 [facility] Cigarette pack-years 2019-10-27 00:00:00 2019-10-27 00:00:00 [facility] History of tobacco use 1998-07-12 00:00:00 Current smoker [facility] Smoking Status Start Date Stop Date Source Former smoker 2019-10-27 00:00:00 2019-10-27 00:00:00 [facility] Medications Ordered Medication Name Filled Medication Name Start Date Stop Da te Current Medication? Ordering Clinician Indication Dosage Frequency Signature (SIG) Comments Components Source hydroCHLOROthiazide (HYDRODIURIL) 25 MG tablet 2019-10-26 20:15: 22 Yes 25mg Take 25 mg by mouth every other day. [facility] furosemide (LASIX) 40 MG tablet 2019-10-26 20:14:42 Yes 40mg QD Take 40 mg by mouth daily. [facility] omega-3 acid ethyl esters (LOVAZA) 1 gram capsule 2019-10-08 14:32:32 2019-10-08 00:00:00 No 2g Q.5D Take 2 g by mouth 2 (two) times daily. [facility] ergocalciferol (VITAMIN D2) 50,000 unit capsule 2019-10-08 14:32:2019-10-08 00:00:00 No [id number] Q.5W Take 50,000 Units by mouth twic e a week. [facility] levoFLOXacin (LEVAQUIN) 750 MG tablet 2019-09-18 00:00 :00 2019-09-19 23:59:00 No 750mg QD Take 1 tablet (750 mg total) by mouth da angie for 1 day. [facility] levoFLOXacin (LEVAQUIN) 750 MG tablet 2019-09-16 00:00 :00 2019-09-17 00:00:00 No 750mg Take 1 tablet ( 750 mg total) by mouth every other day for 1 dose. [facility] isosorbide mononitrate (IMDUR) 30 MG 24 hr tablet 2019-09-14 09:2019-09-14 00:00:00 No 30mg Q.5D Take 30 mg by mouth 2 (two) times daily . [facility] r insulin lispro (HUMALOG) 100 unit/mL injection 2 09:2019-09-14 00:00:00 No 5U Inject 5 Units subcutaneously 3 (three) times daily before meals. [facility] clopidogrel (PLAVIX) 75 mg tablet 2019-09-14 09:2019 00:00:00 No 75mg QD Take 75 mg by mouth daily. [facility] alendronate (FOSAMAX) 35 MG tablet 2019-09-14 09: 00:00:00 No 35mg Take 35 mg by [facility] every 7 days. Take in the morning with a full glass of water, on an empty stomach, and do not take anything else by mouth or lie down for the next 30 min. [facility] atenolol (TENORMIN) 25 MG tablet 2019-09-14 09:2019-09 00:00:00 No 25mg QD Take 25 mg by mouth daily. [facility] cilostazol (PLETAL) 100 MG tablet 2019-09-14 09::2019 00:00:00 No 100mg Q.5D Take 100 mg by mouth 2 (two) times daily . [facility] TiZANidine (ZANAFLEX) 4 MG capsule 2019-09-14 09:03: 00:00:00 No 4mg Take 4 mg by mouth every night as needed for Muscle spasms . [facility] losartan (COZAAR) 50 MG tablet 2019-09-14 09:03:2019-09-14 00 :00:00 No 50mg QD Take 50 mg by mouth daily. [facility] venlafaxine (EFFEXOR-XR) 150 MG 24 hr capsule 20 28-09-04 09:03:2019-09-14 00:00:00 No 150mg QD Take 150 mg by mouth daily. [facility] gabapentin (NEURONTIN) 100 MG capsule 2019-09-14 09: :2019-09-14 00:00:00 No 100mg Q.[id number] Take 100 mg b y mouth 3 (three) times daily. [facility] r potassium chloride (KLOR-CON) 10 MEQ CR tablet 2 09:2019-09-14 00:00:00 No 10meq Q.5D Take 10 mEq by mouth 2 (two) ti mes daily. [facility] insulin glargine (LANTUS) 100 unit/mL (3 mL) InPn 2019-09-14 00:00:00 2020-09-13 23:59:00 No 10U QD Inject 10 Units subcutaneously every morning. [facility] r insulin lispro (HUMALOG) 100 unit/mL injection 2 00:00:00 2020-09-13 23:59:00 No 5U Inject 5 Units subcutaneously 3 (three) times daily as needed for High Blood Sugar (Take only if BG >150 before meals.). [facility] isosorbide mononitrate (IMDUR) 30 MG 24 hr tablet 2019-09-14 00:00:00 2020-09-13 23:59:00 No 15mg QD Take 0.5 tablets (15 mg total) by mouth daily Increase to 30 mg daily if SBP >160 or DBP >110 x 2 days.. [facility] mirtazapine (REMERON) 15 MG tablet 2019-09-14 00:00:00 07-14-04 23:59:00 No 15mg QD Take 1 tablet (15 mg total) by mouth nig htly. [facility] amiodarone (PACERONE) 200 MG tablet 2019-09-14 00:00:0 0 2020-09-13 23:59:00 No 200mg QD Take 1 tablet (200 mg total) by mouth da angie. [facility] apixaban (ELIQUIS) 2.5 mg Tab tablet 2019-09-14 00:00: 00 2020-09-13 23:59:00 No 2.5mg Q.5D Take 1 tablet (2.5 mg total) b y mouth 2 (two) times daily. [facility] metoprolol tartrate (LOPRESSOR) 25 MG tablet 00:00:00 2020-09-13 23:59:00 No 25mg Q.5D Take 1 tablet (25 mg total) by mouth 2 (two) times daily. [facility] ferrous sulfate 325 (65 FE) MG tablet 2019-09-14 00:00 :00 2019-10-08 00:00:00 No 325mg Q.5D Take 1 tablet (325 mg total) b y mouth 2 (two) times daily. [facility] loperamide (IMODIUM) 2 mg capsule 2019-09-14 00:00:00 2019 23:59:00 No 2mg Take 1 capsule ( 2 mg total) by mouth 4 (four) times daily as needed for Diarrhea for up to 10 days. [facility] nystatin (MYCOSTATIN) 100,000 unit/mL suspension 2019-09-14 00:00:00 2019-09-24 23:59:00 No [id number] Q.25D Take 5 mLs (500,000 Units total) by mouth 4 (four) times daily for 10 days. [facility] Magic Mouthwash (NO steroid) oral suspension 00:00:00 2019-09-24 23:59:00 No 5mL Swish and spit 5 mLs every 6 (six) hours as needed (mouth pain) for up to 10 days. [facility] levoFLOXacin (LEVAQUIN) 750 MG tablet 2019-09-14 00:00 :00 2019-09-14 00:00:00 No 750mg Take 1 tablet ( 750 mg total) by mouth every other day for 4 days. [facility] pantoprazole (PROTONIX) 40 MG tablet 2019-09-06 12:24:21 Ye s 40mg QD Take 40 mg by mouth daily. [facility] sertraline (ZOLOFT) 50 MG tablet 2019-09-06 12:24:21 Yes 50mg QD Take 50 mg by mouth daily. [facility] omeprazole (PRILOSEC) 40 MG capsule 2019-09-06 12:22:5 3 2019-09-06 00:00:00 No 40mg QD Take 40 mg by mouth daily. [facility] hydrochlorothiazide (HYDRODIURIL) 25 MG tablet 2 12:21:38 2019-09-06 00:00:00 No 25mg Take 25 mg by mouth every other day . [facility] furosemide (LASIX) 40 MG tablet 2019-09-06 12:21:20 00:00:00 No 40mg QD Take 40 mg by mouth daily. [facility] glimepiride (AMARYL) 2 MG tablet 2019-08-20 00:00:00 2019-09 00:00:00 No 2mg Take 1 tablet (2 mg total) by mouth daily with breakfast. [facility] busPIRone (BUSPAR) 15 MG tablet 2019-08-19 00:00:00 00:00:00 No 15mg [id number] Take 1 tablet (15 mg total) by mouth 3 (three) times daily. [facility] mirtazapine (REMERON) 15 MG tablet 2019-08-19 00:00:00 00:00:00 No 15mg QD Take 1 tablet (15 mg total) by mouth nig htly for 30 days. [facility] insulin glargine 100 unit/mL (3 mL) InPn 2016-11 00:00:00 2019-09-14 00:00:00 No 20U QD Inject 20 Units subcutaneously every morning. [facility] fluticasone (FLONASE) 50 mcg/actuation nasal spray 2015-02 13:15:01 Yes 2{spray} QD 2 sprays by Nasal route daily. [facility] aspirin 81 MG EC tablet 2014-08-31 19:47:07 Yes 81mg QD Take 81 mg by mouth daily. [facility] nitroglycerin (NITROSTAT) 0.4 MG SL tablet 2014-08-31 19:47:[address] 0.4 mg under the tongue every 5 (f harvey) minutes as needed for Chest pain. Put 1 pill under tongue every 5min as needed for chest pain.No more than 3 doses in 15min.Call 911 if pain is unrelieved 5min after 1st dose [facility] Vital Signs Vital Name Observation Time Observation Value Comments Source Systolic blood pressure 2019-10-28 07:00:00 127 mm[Hg] [facility] Diastolic blood pressure 2019-10-28 07:00:00 59 mm[Hg] [facility] Heart rate 2019-10-28 07:00:00 64 /min [facility] Body temperature 2019-10-28 07:00:00 36.67 Anju [facility] Respiratory rate 2019-10-28 07:00:00 18 /min [facility] Oxygen saturation in Arterial blood by Pulse oximetry 10-27 07:00:00 93 /min [facility] Body height 2019-10-26 18:13:00 163 cm [facility] Body weight Measured 2019-10-26 18:13:00 83.008 kg [facility] BMI 2019-10-26 18:13:00 31.24 kg/m2 [facility] Procedures Procedure Date / Time Performed Performing Clinician [facility] e REPORT OF PROCEDURE - ENDOSCOPY SCAN 2019-10-30 09:50:19 Pro vider, Default Scanning [facility] RHYTHM STRIP - SCAN 2019-10-30 09:50:17 Provider, Default Scanni ng [facility] POCT-GLUCOSE METER 2019-10-28 06:14:00 Jeanna Patti [facility] BASIC METABOLIC PANEL (7) 2019-10-28 05:53:00 Daren Meekse caitlyn [facility] CBC W/PLT COUNT & AUTO DIFFERENTIAL 2019-10-28 05:53:00 Stanley jasmine Patti [facility] POCT-GLUCOSE METER 2019-10-28 00:06:00 Jeanna [facility] CREATININE, RANDOM URINE 2019-10-27 21:31:00 [facility] OSMOLALITY, URINE 2019-10-27 21:31:00 Jeanna [facility] URINALYSIS W/ REFLEX URINE CULTURE 2019-10-27 21:31:00 Stanford nielson Patti [facility] POCT-GLUCOSE METER 2019-10-27 17:42:00 Jeanna [facility] POCT-GLUCOSE METER 2019-10-27 13:30:00 Jeanna [facility] REPORT OF PROCEDURE - ENDOSCOPY URL 2019-10-27 12:06:11 Osmin Kidd [facility] UPPER ENDOSCOPY 2019-10-27 11:30:00 Osmin Kidd [facility] POCT-GLUCOSE METER 2019-10-27 08:21:00 Jeanna Patti [facility] BASIC METABOLIC PANEL (7) 2019-10-27 03:27:00 Antonia Yao [facility] PT/APTT 2019-10-27 03:27:00 Antonia Yao [facility] TROPONIN I 2019-10-27 03:27:00 Gomez Byers [facility] HEMOGLOBIN AND HEMATOCRIT 2019-10-27 03:27:00 Antonia Yao [facility] HEMOGLOBIN AND HEMATOCRIT 2019-10-27 01:17:00 Antonia Yao [facility] POCT-GLUCOSE METER 2019-10-26 23:34:00 [facility] TROPONIN I 2019-10-26 23:21:00 Siobhan Herrmann [facility] OCCULT BLOOD, STOOL 2019-10-26 19:18:00 Siobhan Herrmann [facility] ECG 12-LEAD 2019-10-26 19:00:43 Siobhan Herrmann [facility] XR CHEST 1 VIEW PORTABLE/BEDSIDE 2019-10-26 18:30:00 Siobhan Herrmann [facility] XR ABDOMEN 2 VIEWS FLAT AND UPRIGHT 2019-10-26 18:30:00 Siobhan Ace [facility] BASIC METABOLIC PANEL (7) 2019-10-26 18:24:00 Siobhan Herrmann [facility] TROPONIN I 2019-10-26 18:24:00 Siobhan Herrmann [facility] PT/APTT 2019-10-26 18:24:00 Siobhan Herrmann [facility] LIPASE 2019-10-26 18:24:00 Siobhan Herrmann [facility] HEPATIC FUNCTION PANEL 2019-10-26 18:24:00 Siobhan Herrmann [facility] CBC W/PLT COUNT & AUTO DIFFERENTIAL 2019-10-26 18:24:00 Siobhan Ace [facility] RHYTHM STRIP - SCAN 2019-10-11 12:21:47 Provider, Default Ana Cristina [facility] REPORT OF PROCEDURE - ENDOSCOPY SCAN 2019-10-10 10:41:39 Pro vider, Default Scanning [facility] RHYTHM STRIP - SCAN 2019-10-10 10:41:36 Provider, Default Ana Cristina cai [facility] POCT-GLUCOSE METER 2019-10-09 07:21:00 Shankar Crowe [facility] POCT-GLUCOSE METER 2019-10-08 20:10:00 Abdifatah, Vita A A [facility] POCT-GLUCOSE METER 2019-10-08 16:26:00 Abdifatah, Vita A A [facility] POCT-GLUCOSE METER 2019-10-08 11:54:00 Abdifatah, Vita A A [facility] POCT-GLUCOSE METER 2019-10-08 06:59:00 Abdifatah, Vita A A [facility] POCT-GLUCOSE METER 2019-10-07 20:15:00 Abdifatah, Vita A A [facility] POCT-GLUCOSE METER 2019-10-07 16:26:00 Abdifatah, Vita A A [facility] POCT-GLUCOSE METER 2019-10-07 12:18:00 Abdifatah, Vita A A [facility] POCT-GLUCOSE METER 2019-10-07 06:55:00 Abdifatah, Vita A A [facility] BASIC METABOLIC PANEL (7) 2019-10-07 03:58:00 Abdifatah Reagan [facility] CBC W/PLT COUNT & AUTO DIFFERENTIAL 2019-10-07 03:58[facility] 2019-10-06 21:56:00 Michelle Leonard [facility] POCT-GLUCOSE METER 2019-10-06 20:06:00 Abdifatah, Vita A A [facility] POCT-GLUCOSE METER 2019-10-06 16:49:00 Abdifatah Reagan [facility] POCT-GLUCOSE METER 2019-10-06 12:11:00 Abdifatah Reagan I [facility] POCT-GLUCOSE METER 2019-10-06 07:04:00 Abdifatah Reagan [facility] BASIC METABOLIC PANEL (7) 2019-10-06 04:14:00 Emmy Jain [facility] POCT-GLUCOSE METER 2019-10-05 21:18:00 Abdifatah Reagan [facility] POCT-GLUCOSE METER 2019-10-05 16:57:00 Abdifatah Reagan CH I [facility] POCT-GLUCOSE METER 2019-10-05 12:17:00 Abdifatah Reagan [facility] POCT-GLUCOSE METER 2019-10-05 07:59:00 Abdifatah Reagan [facility] BASIC METABOLIC PANEL (7) 2019-10-05 04:04:00 Emmy Jain Amanda cai [facility] PROTHROMBIN TIME/INR 2019-10-05 04:04:00 Abdifatah Reagan [facility] CBC W/PLT COUNT & AUTO DIFFERENTIAL 2019-10-05 04:04:00 Abdifatah Reagan [facility] POCT-GLUCOSE METER 2019-10-04 20:48:00 Abdifatah Reagan [facility] POCT-GLUCOSE METER 2019-10-04 16:05:00 Abdifatah Reagan [facility] IR TUNNELED CATH INTRAPERITONEAL 2019-10-04 12:16:00 Romi Jain [facility] POCT-GLUCOSE METER 2019-10-04 09:18:00 Abdifatah Reagan [facility] BASIC METABOLIC PANEL (7) 2019-10-04 03:49:00 Susy, Emmyjanell cai [facility] TROPONIN I 2019-10-04 03:49:00 Emmy Jain [facility] CBC W/PLT COUNT & AUTO DIFFERENTIAL 2019-10-04 03:49:00 Carito Jainiong [facility] POCT-GLUCOSE METER 2019-10-04 00:10:00 [facility] CBC W/PLT COUNT & AUTO DIFFERENTIAL 2019-10-03 19:57:00 Yi Hills [facility] TROPONIN I 2019-10-03 19:20:00 [facility] PT/[facility]TT 2019-10-03 19:20:00 [facility] LACTIC ACID, VENOUS 2019-10-03 19:20:00 [facility] BASIC METABOLIC PANEL (7) 2019-10-03 18:58:00 [place] CH I [facility] MAGNESIUM 2019-10-03 18:58:00 [facility] TROPONIN I 2019-10-03 18:58:00 [facility]ier [facility] B-TYPE NATRIURETIC FACTOR (BNP) 2019-10-03 18:58:00 [facility] XR CHEST 1 VIEW PORTABLE/BEDSIDE 2019-10-03 18:46:00 Reinier [facility] ECG 12-LEAD 2019-10-03 18:14:14 [place]ier [facility] [place] TUNNELED DRAINAGE CATHETER PLACEMENT 2019-10-02 17:20:00 Cade Teixeira ma [facility] PROTHROMBIN TIME/INR 2019-10-02 10:23:00 Susannah Goodwin [facility] APTT 2019-10-02 10:23:00 [facility] CBC W/PLT COUNT & AUTO DIFFERENTIAL 2019-10-02 10:23:00 Susannah Goodwin [facility] RHYTHM STRIP - SCAN 2019-09-21 12:31:47 Provider, Default Ana Cristina [facility] RHYTHM STRIP - SCAN 2019-09-19 07:50:29 Provider, Default Scanmigel [facility] REPORT OF PROCEDURE - ENDOSCOPY SCAN 2019-09-19 07:50:21 Pro vider, Default Scanning [facility] LACTATE DEHYDROGENASE (LD), PLEURAL FLUID 2019-09-17 16:36:0 0 Shireen Evans [facility] PROTEIN, TOTAL, PLEURAL FLUID 2019-09-17 16:36:00 Shireen Evans [facility] POCT-GLUCOSE METER 2019-09-17 12:53:00 Tez Abdifatah Rodriguez I [facility] POCT-GLUCOSE METER 2019-09-17 08:59:00 BlakenataliaKeyur fontanezjanell Rodriguez I [facility] COMPREHENSIVE METABOLIC PANEL 2019-09-17 05:15:00 Keyur Reagan janell Blakelyick [facility] CBC W/PLT COUNT & AUTO DIFFERENTIAL 2019-09-17 05:15:00 Keyur Reaganjanell Rodriguez [facility] POCT-GLUCOSE METER 2019-09-16 22:17:00 Keyur Reaganjanell Rodriguez [facility] POCT-GLUCOSE METER 2019-09-16 18:12:00 Keyur Reaganjanell Rodriguez [facility] POCT-GLUCOSE METER 2019-09-16 12:32:00 Keyur Reaganjanell Rodriguez [facility] BODY FLUID CELL COUNT WITH DIFFERENTIAL 2019-09-16 12:19:00 Shireen Martinez [facility] BODY FLUID CULTURE + GRAM STAIN 2019-09-16 12:19:00 Shanice Evans [facility] CYTOLOGY 2019-09-16 12:18:00 Shireen Evans [facility] XR CHEST 1 VIEW PORTABLE/BEDSIDE 2019-09-16 11:58:00 Leonidas Evans [facility] POCT-GLUCOSE METER 2019-09-16 07:35:00 Keyur Reaganjanell Rodriguez [facility] PROTHROMBIN TIME/INR 2019-09-16 03:00:00 Shireen Evans [facility] BASIC METABOLIC PANEL (7) 2019-09-16 03:00:00 Leila Goyal [facility] CBC W/PLT COUNT & AUTO DIFFERENTIAL 2019-09-16 03:00:00 Joanne Evans bryant [facility] POCT-GLUCOSE METER 2019-09-15 21:43:00 Abdifatah Reagan I [facility] POCT-GLUCOSE METER 2019-09-15 17:46:00 Rawls, Thalia Collins [facility] POCT-GLUCOSE METER 2019-09-15 12:29:00 Rawls, Thalia VLeela [facility] POCT-GLUCOSE METER 2019-09-15 09:26:00 Rawls, Thalia VLeela [facility] POCT-GLUCOSE METER 2019-09-14 21:50:00 Rawls, Thalia VLeela [facility] XR CHEST 1 VIEW PORTABLE/BEDSIDE 2019-09-14 18:51:00 Laura Goyal [facility] POCT-GLUCOSE METER 2019-09-14 17:59:00 Rawls, Thalia Collins [facility] POCT-GLUCOSE METER 2019-09-14 12:38:00 Rawls, Thalia Collins [facility] POCT-GLUCOSE METER 2019-09-14 08:11:00 Rawls, Thalia Collins [facility] HEPATIC FUNCTION PANEL 2019-09-14 04:17:00 Rossi [place] [facility] BASIC METABOLIC PANEL (7) 2019-09-14 04:17:00 Leila Goyal [facility] CBC W/PLT COUNT & AUTO DIFFERENTIAL 2019-09-14 04:17:00 Sepideh Pagan [facility] (CELLAVISION MANUAL DIFF) 2019-09-14 04:17:00 Sepideh Pagan CH, I [facility] POCT-GLUCOSE METER 2019-09-13 21:52:00 RawlsThalia V. [facility] POCT-GLUCOSE METER 2019-09-13 17:20:00 Rawls, Thalia V. [facility] POCT-GLUCOSE METER 2019-09-13 11:41:00 Rawls, Thalia Collins [facility] POCT-GLUCOSE METER 2019-09-13 07:49:00 Rawls, Thalia Collins [facility] HEPATIC FUNCTION PANEL 2019-09-13 04:09:00 Rossi [place] [facility] BASIC METABOLIC PANEL (7) 2019-09-13 04:09:00 Leila Goyal [facility] CBC W/PLT COUNT & AUTO DIFFERENTIAL 2019-09-13 04:09:00 Ej [facility] (CELLAVISION MANUAL DIFF) 2019-09-13 04:09:00 Ej [facility] POCT-GLUCOSE METER 2019-09-12 22:08:00 RawlsJosefn VLeela [facility] POCT-GLUCOSE METER 2019-09-12 17:20:00 Thalia Rawls VLeela [facility] POCT-GLUCOSE METER 2019-09-12 12:49:00 Thalia Rawls V. [facility] POCT-GLUCOSE METER 2019-09-12 08:06:00 RawlsBereketThalia V. [facility] BASIC METABOLIC PANEL (7) 2019-09-12 04:49:00 [place]i [place] [facility] MAGNESIUM 2019-09-12 04:49:00 [place]i [place] [facility] PHOSPHORUS 2019-09-12 04:49:00 [place]i [place] [facility] HEPATIC FUNCTION PANEL 2019-09-12 04:49:00 [place]i [place] [facility] CBC W/PLT COUNT & AUTO DIFFERENTIAL 2019-09-12 04:49:00 Ej [facility] (CELLAVISION MANUAL DIFF) 2019-09-12 04:49:00 Ej [facility] POCT-GLUCOSE METER 2019-09-12 00:54:00 RawlsThalia V. [facility] POCT-GLUCOSE METER 2019-09-11 17:36:00 RawlsBereketThalia VLeela [facility] POCT-GLUCOSE METER 2019-09-11 17:05:00 RawlsJosefn VLeela [facility] BASIC METABOLIC PANEL (7) 2019-09-11 15:35:00 Rossi [place] [facility] MAGNESIUM 2019-09-11 15:35:00 Rossi [place] [facility] PHOSPHORUS 2019-09-11 15:35:00 [place]i [place] [facility] POCT-GLUCOSE METER 2019-09-11 12:08:00 RawlsThalia V. [facility] POCT-GLUCOSE METER 2019-09-11 08:01:00 [facility] (7) 2019-09-11 03:32:00 Rossi [place] [facility] MAGNESIUM 2019-09-11 03:32:00 Rossi [place] [facility] PHOSPHORUS 2019-09-11 03:32:00 Rossi [place] [facility] HEPATIC FUNCTION PANEL 2019-09-11 03:32:00 Rossi [place] [facility] CBC W/PLT COUNT & AUTO DIFFERENTIAL 2019-09-11 03:32:00 Ej [facility] (CELLAVISION MANUAL DIFF) 2019-09-11 03:32:00 Sepideh Pagan [facility] POCT-GLUCOSE METER 2019-09-10 23:06:00 Shirlene Thaliasophia Collins [facility] POCT-GLUCOSE METER 2019-09-10 17:50:00 [facility]irlene [facility] BASIC MET[facility]OLIC PANEL (7) 2019-09-10 16:19:00 Rossi [place] [facility] MAGNESIUM 2019-09-10 16:19:00 Rossi [place] [facility] PHOSPHORUS 2019-09-10 16:19:00 [place]i [place] [facility] POCT-GLUCOSE METER 2019-09-10 14:35:00 Thalia Rawls V. [facility] POCT-GLUCOSE METER 2019-09-10 07:59:00 Thalia Rawls V. [facility] APTT 2019-09-10 04:30:00 Gregg Brice [facility] BASIC METABOLIC PANEL (7) 2019-09-10 04:30:00 Rossi [place] [facility] MAGNESIUM 2019-09-10 04:30:00 Rossi [place] [facility] PHOSPHORUS 2019-09-10 04:30:00 Rossi [place] [facility] HEPATIC FUNCTION PANEL 2019-09-10 04:30:00 Rossi [place] Cordelia [facility] CBC W/PLT COUNT & AUTO DIFFERENTIAL 2019-09-10 04:30:00 Sepideh Pagan [facility] APTT 2019-09-09 23:11:00 Yuniel [facility] POCT-GLUCOSE METER 2019-09-09 21:31:00 Thalia Rawls V. [facility] APTT 2019-09-09 17:38:00 Yuniel [facility] POTASSIUM 2019-09-09 17:38:00 Arnaud Franks [facility] POCT-GLUCOSE METER 2019-09-09 16:26:00 Thalia Rawls V. [facility] BASIC METABOLIC PANEL (7) 2019-09-09 14:28:00 Rossi [place] [facility] MAGNESIUM 2019-09-09 14:28:00 Rossi [place] [facility] PHOSPHORUS 2019-09-09 14:28:00 Rossi [place] [facility] APTT 2019-09-09 11:16:00 Yuniel [facility] POCT-GLUCOSE METER 2019-09-09 11:14:00 Thalia Rawls V. [facility] POCT-GLUCOSE METER 2019-09-09 07:25:00 Thalia Rawls V. [facility] TROPONIN I 2019-09-09 05:11:00 Bert Jones [facility] DIGOXIN LEVEL 2019-09-09 05:11:00 Arnaud Franks [facility] BILIRUBIN, DIRECT 2019-09-09 05:11:00 Henri Ochoa [facility] COMPREHENSIVE METABOLIC PANEL 2019-09-09 03:08:00 Araceli Pagan [facility] MAGNESIUM 2019-09-09 03:08:00 Arnaud Franks [facility] PHOSPHORUS 2019-09-09 03:08:00 [facility] APTT 2019-09-09 03:08:00 Ej [facility] BLOOD GAS, ARTERIAL 2019-09-09 03:08:00 Arnaud Franks [facility] CBC W/PLT COUNT & AUTO DIFFERENTIAL 2019-09-09 03:08:00 Ej [facility] XR ABDOMEN / KUB 1 VIEW 2019-09-09 02:16:00 Arnaud Franks [facility] LACTIC ACID, VENOUS 2019-09-09 01:53:00 Arnaud Franks [facility] TROPONIN I 2019-09-08 23:17:00 Bert Jones [facility] POCT-GLUCOSE METER 2019-09-08 22:44:00 Thalia Rawls V. [facility] ECHOCARDIOGRAM REPORT - SCAN 2019-09-08 21:12:32 Thierry Carroll lt Scanning [facility] TROPONIN I 2019-09-08 17:53:00 Bert Jones [facility] POTASSIUM 2019-09-08 17:53:00 Bert Jones [facility] MAGNESIUM 2019-09-08 17:53:00 Bert Jones [facility] POCT-GLUCOSE METER 2019-09-08 16:59:00 Thalia Rawls V. [facility] BLOOD CULTURE 2019-09-08 16:48:00 Henri Ochoa [facility] BLOOD CULTURE 2019-09-08 16:45:00 [facility] C. DIFFICILE GDH TOXIN 2019-09-08 16:30:00 E[facility] HE[facility] ANTIBODY 2019-09-08 15:53:00 [facility] BASIC [facility]OLIC PANEL (7) 2019-09-08 13:17:00 Bert Jones [facility] LACTIC ACID, ARTERIAL 2019-09-08 13:17:00 Ej [facility] TROPONIN I 2019-09-08 13:17:00 Bert Jones [facility] POCT-GLUCOSE METER 2019-09-08 11:45:00 Thalia Rawls V. [facility] ECG 12-LEAD 2019-09-08 10:45:08 Unknown, Hl7 Doctor [facility] TROPONIN I 2019-09-08 10:45:00 Bert Jones [facility] POCT-GLUCOSE METER 2019-09-08 08:47:00 Thalia Rawls V. [facility] LACTATE DEHYDROGENASE (LDH) 2019-09-08 08:35:00 Ej [facility] HAPTOGLOBIN 2019-09-08 08:35:00 Ej [facility] FIBRINOGEN 2019-09-08 08:35:[address] [facility] PROTHROMBIN TIME/INR 2019-09-08 08:35:[address] [facility] APTT 2019-09-08 08:35:[address] [facility] BASIC METABOLIC PANEL (7) 2019-09-08 08:35:00 Ej [facility] TROPONIN I 2019-09-08 08:35:00 Ej [facility] COMPREHENSIVE METABOLIC PANEL 2019-09-08 03:56:00 Ej Araceli islas [facility] MAGNESIUM 2019-09-08 03:56:00 Arnaud Franks [facility] PHOSPHORUS 2019-09-08 03:56:00 [facility] CBC W/PLT COUNT & AUTO DIFFERENTIAL 2019-09-08 03:56:00 Jamisonnoris [facility] (CELLAVISION MANUAL DIFF) 2019-09-08 03:56:00 Ej [facility] APTT 2019-09-08 02:09:00 Ej [facility] LACTIC ACID, VENOUS 2019-09-08 01:13:00 [facility] ECG 12-LEAD 2019-09-08 00:53:12 Tiny [facility] POCT-GLUCOSE METER 2019-09-07 21:11:00 Thalia Rawls V. [facility] US HEPATIC PORTAL VESSEL WITH DOPPLER 2019-09-07 21:00:00 [facility] APTT 2019-09-07 19:51:00 Ej [facility] BLOOD CULTURE 2019-09-07 16:25:00 Gregg Brice [facility] BLOOD GAS, ARTERIAL 2019-09-07 16:25:00 Sepideh Harley [facility] LACTIC ACID, ARTERIAL 2019-09-07 16:25:00 Sepideh Harley [facility] XR CHEST 1 VIEW PORTABLE/BEDSIDE 2019-09-07 15:27:00 Gregg Brice [facility] 2D ECHO W/ DOPPLER (CW/PW/COLOR) 2019-09-07 14:48:25 Renny Mckenna [facility] LACTIC ACID, VENOUS 2019-09-07 13:35:00 Arnaud Franks [facility] PLATELET COUNT 2019-09-07 13:35:00 [facility] 2019-[facility]-07 13:35:00 [facility] POCT-GLUCOSE METER 2019-09-07 12:36:00 Thalia Rawls V. [facility] BLOOD CULTURE 2019-09-07 10:38:00 [facility] LACT[facility] ACID, VENOUS 2019-09-07 10:37:00 Arnaud Franks [facility] TROPONIN I 2019-09-07 10:37:00 Arnaud Franks [facility] COMPREHENSIVE METABOLIC PANEL 2019-09-07 10:37:00 Araceli Pagan [facility] CBC W/PLT COUNT & AUTO DIFFERENTIAL 2019-09-07 10:37:00 Ej [facility] (CELLAVISION MANUAL DIFF) 2019-09-07 10:37:00 Sepideh Pagan [facility] POCT-GLUCOSE METER 2019-09-07 09:00:00 Thalia Rawls V. [facility] ECG 12-LEAD 2019-09-07 05:41:22 Unknown, Hl7 [facility] POCT-GLUCOSE METER 2019-09-06 21:23:00 Thalia Rawls V. [facility] HEMOGLOBIN A1C 2019-09-06 20:17:00 Ej [facility] APTT 2019-09-06 20:17:00 Ej [facility] B-TYPE NATRIURETIC FACTOR (BNP) 2019-09-06 20:17:00 Vlad Pagan [facility] TROPONIN I 2019-09-06 20:17:00 Arnaud Franks [facility] POCT-GLUCOSE METER 2019-09-06 17:44:00 Thalia Rawls [facility] LACTIC ACID, VENOUS 2019-09-06 16:09:00 [facility] TROPONIN I 2019-09-06 16:09:00 Shirlene [facility] IRON, TIBC, % SAT. (WITHOUT FERRITIN) 2019-09-06 16:08:00 [facility] FERRITIN 2019-09-06 16:08:00 [facility] BASIC METABOLIC PANEL (7) 2019-09-06 16:08:00 [facility] TROPONIN I 2019-09-06 16:08:00 [facility] POCT-GLUCOSE METER 2019-09-06 13:35:00 Shirlene [facility] LACTIC ACID, VENOUS 2019-09-06 13:18:00 [place] Leela [facility] RETICULOCYTE COUNT 2019-09-06 13:18:00 [facility] ECG 12-LEAD 2019-09-06 12:46:06 [facility] SODIUM, RANDOM URINE 2019-09-06 12:29:00 [facility] CREATININE, RANDOM URINE 2019-09-06 12:29:00 [facility] LACTIC ACID, VENOUS 2019-09-06 09:48:00 [place] [facility] PROCALCITONIN 2019-09-06 09:48:00 Reinier [facility] Leela [facility] TROPONIN I 2019-09-06 09:48:[address] [facility] [address] ABDOMEN/PELVIS WITHOUT IV CONTRAST 2019-09-06 08:00:00 Julien Wright [facility] LACTIC ACID, VENOUS 2019-09-06 06:56:00 Julien Krishna [facility] BASIC METABOLIC PANEL (7) 2019-09-06 05:26:00 [facility] KETONE, BLOOD 2019-09-06 05:26:00 [facility] TROPONIN I 2019-09-06 05:26:00 Sepideh Pagan [facility] POCT-GLUCOSE METER 2019-09-06 05:04:00 [facility] BASIC METABOLIC PANEL (7) 2019-09-06 02:55:00 [facility] URINE CULTURE 2019-09-06 01:55:00 [facility] BLOOD CULTURE 2019-09-06 01:55:00 [facility] BLOOD CULTURE IDENTIFICATION PANEL 2019-09-06 01:55:00 [facility] PT/APTT 2019-09-06 01:55:00 [facility] URINALYSIS W/ MICROSCOPIC 2019-09-06 01:55:00 [facility] CBC W/PLT COUNT & AUTO DIFFERENTIAL 2019-09-06 01:55:00 [facility] BLOOD CULTURE 2019-09-06 01:27:00 [facility] AMMONIA 2019-09-06 01:26:00 [facility] KETONE, BLOOD 2019-09-06 01:26:00 [facility] ECG 12-LEAD 2019-09-06 01:20:48 Unknown, Hl7 [facility] CREATINE KINASE (CK) 2019-09-06 01:10:00 [facility] TROPONIN I 2019-09-06 01:10:00 [facility] HEPATIC FUNCTION PANEL 2019-09-06 01:10:00 [facility] LIPASE 2019-09-06 01:10:00 [facility] CRITICAL CARE 2019-09-06 00:47:47 [facility] ED ECG INTERPRETATION 2019-09-06 00:47:47 [facility] XR PELVIS 1 OR 2 VIEWS 2019-09-06 00:15:00 [facility] Julien [facility] XR CHEST 1 VIEW PORTABLE/BEDSIDE 2019-09-06 00:12:00 Enedina Krishna [facility] CT BRAIN WITHOUT IV CONTRAST 2019-09-05 23:32:00 [facility] Julein [facility] RHYTHM STRIP - SCAN 2019-08-21 13:23:56 Provider, Nelly De La Paz [facility] POCT-GLUCOSE METER 2019-08-19 10:09:00 Nu Novoamary [facility] CBC W/PLT COUNT & AUTO DIFFERENTIAL 2019-08-19 05:35:00 Jesus Vogel [facility] COMPREHENSIVE METABOLIC PANEL 2019-08-19 03:47:00 Librado Chanel [facility] HEPATIC FUNCTION PANEL 2019-08-19 03:47:00 Grzegorz Mcfadden [facility] POCT-GLUCOSE METER 2019-08-18 20:29:00 Sommer [facility] POCT-GLUCOSE METER 2019-08-18 16:35:00 Grzegorz Mcfadden [facility] REPORT OF PROCEDURE - ENDOSCOPY URL 2019-08-18 14:04:41 Teagan Walker [facility] [place] ERCP 2019-08-18 14:00:00 Teagan Walker [facility] FINE NEEDLE ASPIRATE (FNA) REQUEST 2019-08-18 13:44:25 Carlitos Walker [facility] FINE NEEDLE ASPIRATION BY CLINICIAN 2019-08-18 13:44:00 Teagan Walker [facility] UPPER ENDOSCOPY,ULTRASOUND 2019-08-18 13:00:00 Teagan Walker [facility] ERCP,PAPILLOTOMY 2019-08-18 13:00:00 [facility] 2019-08-18 13:00[facility]00 [facility]ENT 2019-08-18 13:00:00 WalkerTeagan [facility] POCT-GLUCOSE METER 2019-08-18 11:33:00 Grzegorz Mcfadden [facility] POCT-GLUCOSE METER 2019-08-18 07:51:00 Grzegorz Mcfadden [facility] COMPREHENSIVE METABOLIC PANEL 2019-08-18 04:04:00 Librado Chanel [facility] CBC W/PLT COUNT & AUTO DIFFERENTIAL 2019-08-18 04:04:00 Rickey richards [facility] POCT-GLUCOSE METER 2019-08-17 20:44:00 Grzegorz Mcfadden [facility] POCT-GLUCOSE METER 2019-08-17 10:08:00 Grzegorz Mcfadden [facility] COMPREHENSIVE METABOLIC PANEL 2019-08-17 04:37:00 Librado Chanel [facility] CBC W/PLT COUNT & AUTO DIFFERENTIAL 2019-08-17 04:37:00 Rickey richards [facility] MR ABDOMEN WO CONTRAST MRCP 2019-08-17 02:13:00 [facility] COMPREHENSIVE METABOLIC PANEL 2019-08-16 22:00:00 Librado Chanel [facility] PT/APTT 2019-08-16 22:00:00 Solitario [facility] CBC W/PLT COUNT & AUTO DIFFERENTIAL 2019-08-16 22:00:00 Rickey richards [facility] POCT-GLUCOSE METER 2019-08-16 21:13:00 Grzegorz Mcfadden [facility] POCT-GLUCOSE METER 2019-08-16 18:37:00 Grzegorz McfaddenLeela [facility] Plan of Care Planned Activity Planned Date Details Comments Source Future Scheduled Test 2020-10-22 00:00:00 Urine screening fo r protein (procedure) [code = 856749543] [facility] Future Scheduled Test 2020-03-12 00:00:00 INFLUENZA VACCINE (#1) [code = INFLUENZA VACCINE (#1)] [facility] Future Scheduled Test 2020-03-06 00:00:00 Hemoglobin A1c nurys surement (procedure) [code = 72045341] [facility] Future Scheduled Test 2012-02-11 00:00:00 MEDICARE ANNUAL WE LLNESS (YEAR 2 or FIRST YEAR if no IPPE) [code = MEDICARE ANNUAL WELLNESS (YEAR 2 or FIRST YEAR if no IPPE)] [facility] Scheduled Test 1952 00:00:00 DIABETIC EYE EXAM [code = DIABETIC EYE EXAM] [facility] Future Scheduled Test 1952 00:00:00 Diabetic foot exam ination (regime/therapy) [code = 719861558] [facility] Encounters Start Date/Time End Date/Time Encounter Type Admission Type Attendi [facility] Care Department Encounter ID Source 2017-08-14 15:51:00 2017-08-14 18:22:[address] [facility] [id number] [facility] Results Test Description Test Time Test Comments Results Result Comments Source Basic Metabolic Panel 2019-10-28 09:28:00 Test Item Sodium (test code = 2951-2) 140 meq/L 136-145 Potassium (test code = 2823-3) 3.6 meq/L 3.5-5.1 Chloride (test code = 2075-0) 108 meq/L 98-107 H CO2 (test code = 2027-9) 26 meq/L 22-29 BUN (test code = 3094-0) 14 mg/dL 7-21 Creatinine (test code = 2160-0) 1.19 mg/dL 0.57-1.25 Glucose (test code = 2345-7) 288 mg/dL 70-105 H Calcium (test code = 05414-4) 8.6 mg/dL 8.4-10.2 EGFR (test code = 74317-9) 44 mL/min/1.73 sq m ESTIMATED GFR IS NOT ACCURATE CREATININE CLEARANCE IN PREDICTING GLOMERULAR FILTRATION RATE. ESTIMATED GFR IS NOT APPLICABLE FOR DIALYSIS PATIENTS. FATIMAH (test code = FATIMAH) [employer] ID - LM Lab Interpretation (test code = 73495-5) Abnormal [facility] METABOLIC [id number] 09:28:00* Test Item Value Reference Range Interpretation Comments SODIUM (BEAKER) (test code = 381) 140 meq/L 136-145 POTASSIUM (BEAKER) (test code = 379) 3.6 meq/L 3.5-5.1 CHLORIDE (BEAKER) (test code = 382) 108 meq/L 98-107 H CO2 (BEAKER) (test code = 355) 26 meq/L 22-29 BLOOD UREA NITROGEN (BEAKER) (test code = 354) 14 mg/dL 7-21 CREATININE (BEAKER) (test code = 358) 1.19 mg/dL 0.57-1.25 GLUCOSE RANDOM (BEAKER) (test code = 652) 288 mg/dL 70-105 H CALCIUM (BEAKER) (test code = 697) 8.6 mg/dL 8.4-10.2 EGFR (BEAKER) (test code = 1092) 44 mL/min/1.73 sq m ESTIMATED GFR IS NOT ACCURATE CREATININE CLEARANCE IN PREDICTING GLOMERULAR FILTRATION RATE. ESTIMATED GFR IS NOT APPLICABLE FOR DIALYSIS PATIENTS. [employer] ID - [id number] with platelet count + automated [id number] 06:26:00* Test Item Value Reference Range Interpretation Comments WBC (test code = 6690-2) 4.7 3.5- 10.5 K/L RBC (test code = 789-8) 3.85 3.93- 5.22 M/L L MCHC (test code = 786-4) 33.1 32.2- 35.5 GM/DL Hematocrit (test code = 4544-3) 37.2 % 34.1-44.9 MCV (test code = 787-2) 96.6 fL 79.4-94.8 H MCH (test code = 785-6) 31.9 pg 25.6-32.2 RDW (test code = 788-0) 13.4 % 11.7-14.4 Platelets (test code = 777-3) 128 150- 450 K/CU MM L MPV (test code = 53551-1) 10.4 fL 9.4-12.3 nRBC (test code = 413) 0 0- 0 /100 WBC % Neutros (test code = 429) 39 % % Lymphs (test code = 430) 48 % % Monos (test code = 431) 7 % % Eos (test code = 432) 6 % % Baso (test code = 437) 1 % # Neutros (test code = 670) 1.84 1.56- 6.13 K/L # Lymphs (test code = 414) 2.27 1.18- 3.74 K/L # Monos (test code = 415) 0.33 0.24- 0.36 K/L # Eos (test code = 416) 0.26 0.04- 0.36 K/L # Baso (test code = 417) 0.03 0.01- 0.08 K/L Immature Granulocytes-Relative (test code = 2801) 0 % 0-1 Lab Interpretation (test code = 86195-8) Abnormal [facility]-Glucose [id number] 06:26:00* Test Item Value Reference Range Interpretation Comments POC-Glucose Meter (test code = 1538) 256 mg/dL 70-110 H : TESTED AT [address], [address]: [employer]/Student Career Development Specialist ID = [id number] for Sepideh Villegas Lab Interpretation (test code = 96307-4) Abnormal [facility]-GLUCOSE [id number] 06:26:00* Test Item Value Reference Range Interpretation Comments POC-GLUCOSE METER (BEAKER) (test code = 1538) 256 mg/dL 70-110 H : TESTED AT [place] [id number] [facility], [address]: As[employer]/Student Career Development Specialist ID = [id number] for Sepideh Villegas CBC W/PLT COUNT & AUTO [id number] 06:26:00* Test Item Value Reference Range Interpretation Comments WHITE BLOOD CELL COUNT (BEAKER) (test code = 775) 4.7 K/ L 3.5- 10.5 RED BLOOD CELL COUNT (BEAKER) (test code = 761) 3.85 M/ L 3.93-5 .22 L HEMOGLOBIN (BEAKER) (test code = 410) 12.3 GM/DL 11.2-15.7 HEMATOCRIT (BEAKER) (test code = 411) 37.2 % 34.1-44.9 MEAN CORPUSCULAR VOLUME (BEAKER) (test code = 753) 96.6 fL 79. 4-94.8 H MEAN CORPUSCULAR HEMOGLOBIN (BEAKER) (test code = 751) 31.9 pg 25.6-32.2 MEAN CORPUSCULAR HEMOGLOBIN CONC (BEAKER) (test code = 752) 33.1 GM/DL 32.2-35.5 RED CELL DISTRIBUTION WIDTH (BEAKER) (test code = 412) 13.4 % 11.7-14.4 PLATELET COUNT (BEAKER) (test code = 756) 128 K/CU MM 150-450 L MEAN PLATELET VOLUME (BEAKER) (test code = 754) 10.4 fL 9.4-12 .3 NUCLEATED RED BLOOD CELLS (BEAKER) (test code = 413) 0 /100 WBC 0 -0 NEUTROPHILS RELATIVE PERCENT (BEAKER) (test code = 429) 39 % LYMPHOCYTES RELATIVE PERCENT (BEAKER) (test code = 430) 48 % MONOCYTES RELATIVE PERCENT (BEAKER) (test code = 431) 7 % EOSINOPHILS RELATIVE PERCENT (BEAKER) (test code = 432) 6 % BASOPHILS RELATIVE PERCENT (BEAKER) (test code = 437) 1 % NEUTROPHILS ABSOLUTE COUNT (BEAKER) (test code = 670) 1.84 K/ L 1.56-6.13 LYMPHOCYTES ABSOLUTE COUNT (BEAKER) (test code = 414) 2.27 K/ L 1.18-3.74 MONOCYTES ABSOLUTE COUNT (BEAKER) (test code = 415) 0.33 K/ L 0. 24-0.36 EOSINOPHILS ABSOLUTE COUNT (BEAKER) (test code = 416) 0.26 K/ L 0.04-0.36 BASOPHILS ABSOLUTE COUNT (BEAKER) (test code = 417) 0.03 K/ L 0. 01-0.08 IMMATURE GRANULOCYTES-RELATIVE PERCENT (BEAKER) (test code = 2801) 0 % 0-1 POCT-GLUCOSE [id number] 00:18:00* Test Item Value Reference Range Interpretation Comments POC-GLUCOSE METER (BEAKER) (test code = 1538) 354 mg/dL 70-110 H : TESTED AT [facility] [address] [facility], [address]: Assembler Hydraulic Backhoe/Student Career Development Specialist ID = [id number] for Sepideh Villegas Creatinine, random [id number] 21:59:00* Test Item Value Reference Range Interpretation Comments Creatinine, Ur (test code = 2161-8) 78.9 mg/dL FATIMAH (test code = FATIMAH) Reference Range: No NormalsOperator ID - DB [facility]AT[facility], RANDOM [id number] 21:59:00* Test Item Value Reference Range Interpretation Comments CREATININE URINE (BEAKER) (test code = 375) 78.9 mg/dL Reference Range: No NormalsOperator ID - DBUrinalysis w/Microscopic + Reflex to [id number] 21:48:00* Test Item Value Reference Range Interpretation Comments Color, UA (test code = 5778-6) Yellow Clarity, UA (test code = 5767-9) Clear Specific Kulm, UA (test code = 5811-5) 1.015 1.001-1.035 pH, UA (test code = 5803-2) 6.0 5.0-8.0 Protein, UA (test code = 37627-1) Negative Negative Glucose, UA (test code = 365) 300 mg/dL Negative A Ketones, UA (test code = 2514-8) Negative Negative Bilirubin, UA (test code = 22061-1) Negative Negative Blood, UA (test code = 84870-2) Negative Negative Nitrite, UA (test code = 5802-4) Negative Negative Leukocytes, UA (test code = 5799-2) Negative Negative Urobilinogen, UA (test code = 80199-6) 2.0 mg/dL 0.2-1 H RBC, UA (test code = 59031-6) <1 /HPF WBC, UA (test code = 5821-4) 1 /HPF Mucus (test code = 8247-9) Rare Squam Epithel, UA (test code = 00069-0) <1 /HPF Specimen Source (test code = 2795) FATIMAH (test code = FATIMAH) Assembler Hydraulic Backhoe ID - [auto]Assembler Hydraulic Backhoe ID - tech Lab Interpretation (test code = 95923-4) [facility] UR[facility] [id number] 21:48:00* Test Item Value Reference Range Interpretation Comments COLOR (BEAKER) (test code = 470) Yellow CLARITY (BEAKER) (test code = 469) Clear SPECIFIC GRAVITY UA (BEAKER) (test code = 468) 1.015 1.001-1 .035 PH UA (BEAKER) (test code = 467) 6.0 5.0-8.0 PROTEIN UA (BEAKER) (test code = 464) Negative Negative GLUCOSE UA (BEAKER) (test code = 365) 300 mg/dL Negative A KETONES UA (BEAKER) (test code = 371) Negative Negative BILIRUBIN UA (BEAKER) (test code = 462) Negative Negative BLOOD UA (BEAKER) (test code = 461) Negative Negative NITRITE UA (BEAKER) (test code = 465) Negative Negative LEUKOCYTE ESTERASE UA (BEAKER) (test code = 466) Negative Negat harvey UROBILINOGEN UA (BEAKER) (test code = 463) 2.0 mg/dL 0.2-1.0 H RBC UA (BEAKER) (test code = 519) < /HPF WBC UA (BEAKER) (test code = 520) 1 /HPF MUCUS (BEAKER) (test code = 1574) Rare SQUAMOUS EPITHELIAL (BEAKER) (test code = 516) < /HPF SOURCE(BEAKER) (test code = 2795) Assembler Hydraulic Backhoe ID - [auto]Assembler Hydraulic Backhoe ID - techOsmolality, [id number] 21:47:00* Test Item Value Reference Range Interpretation Comments Osmolality, Ur (test code = 2695-5) 576 40-1,400 mOsm/kg Lab Interpretation (test code = 79814-3) Normal [facility] CenterOSMOLALITY, [id number] 21:47:00* Test Item Value Reference Range Interpretation Comments OSMOLALITY URINE (BEAKER) (test code = 614) 576 mOsm/kg 40-1,400 POCT-GLUCOSE [id number] 17:53:00* Test Item Value Reference Range Interpretation Comments POC-GLUCOSE METER (BEAKER) (test code = 1538) 248 mg/dL 70-110 H : TESTED AT [facility] [address] [facility], [address]: Assembler Hydraulic Backhoe/Student Career Development Specialist ID = [id number] for CALEB SEVILLA ECG 12 [id number] 13:42:10Interface, External Ris In - 10/27/2019 1:42 PM CDTVentricular Rate 65 BPMAtrial Rate 65 BPMP-R Interval 172 msQRS Duration 130 msQ-T Interval 480 msQTC Calculation(Bazett) 499 msP Alpha 56 degreesR Alpha -65 degreesT Alpha 102 degreesNormal sinus rhythm with sinus arrhythmiaLeft axis deviationLeft ventricular hypertrophy with QRS widening and repolarization abnormalityAbnormal ECGWhen compared with ECG of 03-OCT-2019 18:14,No significant change was foundConfirmed by MD Shannan Kingston ([id number]) on 10/27/2019 1:42:06 [facility] [id number] 13:41:00* Test Item Value Reference Range Interpretation Comments POC-GLUCOSE METER (BEAKER) (test code = 1538) 153 mg/dL 70-110 H : TESTED AT [facility] [address] [facility], [address]: Assembler Hydraulic Backhoe/Student Career Development Specialist ID = [id number] for ALESSADNRO CHAPA POCT-GLUCOSE [id number] 08:33:00* Test Item Value Reference Range Interpretation Comments POC-GLUCOSE METER (BEAKER) (test code = 1538) 178 mg/dL 70-110 H : TESTED AT [place] [id number] [facility], [address]: Assembler Hydraulic Backhoe/Student Career Development Specialist ID = [id number] for CALEB SEVILLA Troponin [id number] 04:26:00* Test Item Value Reference Range Interpretation Comments Troponin I (test code = 96513-0) 0.02 ng/mL 0-0.03 FATIMAH (test code = FATIMAH) Troponin I (TnI) levels must be interpreted [...] failure, acidosis, acute neurological disease, and persistent tachyarrhythmia.Assembler Hydraulic Backhoe ID - [place] Lab Interpretation (test code = 44604-3) Normal [facility] CenterTROPONIN [id number] 04:26:00* Test Item Value Reference Range Interpretation Comments TROPONIN I (BEAKER) (test code = 397) 0.02 ng/mL 0.00-0.03 Troponin I (TnI) levels must be interpreted in the context of the presenting sym ptoms and the clinical findings. Elevated TnI levels indicate myocardial damage, but are not specific for ischemic heart disease. Elevated TnI levels are seen i n patients with other cardiac conditions (including myocarditis and congestive h eart failure), and slight TnI elevations occur in patients with other conditions , including sepsis, renal failure, acidosis, acute neurological disease, and per sistent tachyarrhythmia.Assembler Hydraulic Backhoe ID Sally FERRIS WPT/[id number] 04:18:00* Test Item Value Reference Range Interpretation Comments Protime (test code = 5902-2) 13.6 11.9- 14.2 seconds INR (test code = 6301-6) 1.1 <=5.9 PTT (test code = 37447-6) 32.6 22.5- 36.0 seconds FATIMAH (test code = FATIMAH) Effective 12/07/2018: PT Refe rence Range ChangeNew: 11.9- 14.2 Previous: 11.7-14.7 RECOMMENDED COUMADIN/WARFARIN INR THERAPY RANGESSTANDARD DOSE: 2.0-3.0 Includes: PROPHYLAXIS for venous thrombosis, sys temic embolization; TREATMENT for venous thrombosis and/or pulmonary embolus.HIGH RISK: Target INR is 2.5-3.5 for patients wiht mechanical heart valves. Lab Interpretation (test code = 17701-5) Normal [facility] CenterPT/[id number] 04:18:00* Test Item Value Reference Range Interpretation Comments PROTIME (BEAKER) (test code = 759) 13.6 seconds 11.9-14.2 INR (BEAKER) (test code = 370) 1.1 <=5.9 PARTIAL THROMBOPLASTIN TIME (BEAKER) (test code = 760) 32.6 seconds 22.5-36.0 Effective 12/07/2018: PT Reference Range ChangeNew: 11.9-14.2 Previous: 11.7-14. 7RECOMMENDED COUMADIN/WARFARIN INR THERAPY RANGESSTANDARD DOSE: 2.0-3.0 Include s: PROPHYLAXIS for venous thrombosis, systemic embolization; TREATMENT for venou s thrombosis and/or pulmonary embolus.HIGH RISK: Target INR is 2.5-3.5 for patie nts wiht mechanical heart valves.BASIC METABOLIC [id number] 04:18:00* Test Item Value Reference Range Interpretation Comments SODIUM (BEAKER) (test code = 381) 143 meq/L 136-145 POTASSIUM (BEAKER) (test code = 379) 3.4 meq/L 3.5-5.1 L CHLORIDE (BEAKER) (test code = 382) 108 meq/L 98-107 H CO2 (BEAKER) (test code = 355) 28 meq/L 22-29 BLOOD UREA NITROGEN (BEAKER) (test code = 354) 14 mg/dL 7-21 CREATININE (BEAKER) (test code = 358) 1.28 mg/dL 0.57-1.25 H GLUCOSE RANDOM (BEAKER) (test code = 652) 132 mg/dL 70-105 H CALCIUM (BEAKER) (test code = 697) 8.6 mg/dL 8.4-10.2 EGFR (BEAKER) (test code = 1092) 40 mL/min/1.73 sq m ESTIMATED GFR IS NOT ACCURATE CREATININE CLEARANCE IN PREDICTING GLOMERULAR FILTRATION RATE. ESTIMATED GFR IS NOT APPLICABLE FOR DIALYSIS PATIENTS. Assembler Hydraulic Backhoe ID - BARRINGTON WHemoglobin and [id number] 04:04:00* Test Item Value Reference Range Interpretation Comments Hemoglobin (test code = 786-4) 12.2 11.2- 15.7 GM/DL Hematocrit (test code = 4544-3) 37.0 % 34.1-44.9 FATIMAH (test code = FATIMAH) Assembler Hydraulic Backhoe ID - [id number] Lab Interpretation (test code = 75726-2) Normal [facility] CenterHEMOGLOBIN AND [id number] 04:04:00* Test Item Value Reference Range Interpretation Comments HEMOGLOBIN (BEAKER) (test code = 410) 12.2 GM/DL 11.2-15.7 HEMATOCRIT (BEAKER) (test code = 411) 37.0 % 34.1-44.9 Assembler Hydraulic Backhoe ID - [id number] AND [id number] 01:27:00* Test Item Value Reference Range Interpretation Comments HEMOGLOBIN (BEAKER) (test code = 410) 12.3 GM/DL 11.2-15.7 HEMATOCRIT (BEAKER) (test code = 411) 37.2 % 34.1-44.9 Assembler Hydraulic Backhoe ID - 6000TROPONIN [id number] 00:04:00* Test Item Value Reference Range Interpretation Comments TROPONIN I (BEAKER) (test code = 397) < ng/mL 0.00-0.03 Troponin I (TnI) levels must be interpreted in the context of the presenting sym ptoms and the clinical findings. Elevated TnI levels indicate myocardial damage, but are not specific for ischemic heart disease. Elevated TnI levels are seen i n patients with other cardiac conditions (including myocarditis and congestive h eart failure), and slight TnI elevations occur in patients with other conditions , including sepsis, renal failure, acidosis, acute neurological disease, and per sistent tachyarrhythmia.Assembler Hydraulic Backhoe ID - DBPOCT-GLUCOSE [id number] 23:46:00* Test Item Value Reference Range Interpretation Comments POC-GLUCOSE METER (BEAKER) (test code = 1538) 160 mg/dL 70-110 H : TESTED AT [facility] [address] [facility], [address]: Assembler Hydraulic Backhoe/Student Career Development Specialist ID = [id number] for ELIZABETH WALKER Occult blood x 1, [id number] 20:02:00* Test Item Value Reference Range Interpretation Comments Occult blood (test code = 2335-8) Negative Negative Lab Interpretation (test code = 97745-2) Normal [facility] HospitalOCCULT BLOOD, [id number] 20:02:00* Test Item Value Reference Range Interpretation Comments FECAL OCCULT BLOOD (BEAKER) (test code = 618) Negative Negative TROPONIN [id number] 19:19:00* Test Item Value Reference Range Interpretation Comments TROPONIN I (BEAKER) (test code = 397) 0.01 ng/mL 0.00-0.03 Troponin I (TnI) levels must be interpreted in the context of the presenting sym ptoms and the clinical findings. Elevated TnI levels indicate myocardial damage, but are not specific for ischemic heart disease. Elevated TnI levels are seen i n patients with other cardiac conditions (including myocarditis and congestive h eart failure), and slight TnI elevations occur in patients with other conditions , including sepsis, renal failure, acidosis, acute neurological disease, and per sistent tachyarrhythmia.Assembler Hydraulic Backhoe ID - JOY MHepatic function [id number] 19:13:00* Test Item Value Reference Range Interpretation Comments Protein, Total (test code = 2885-2) 7.3 6.0- 8.3 gm/dL Specimen slightly hemolyzed Albumin (test code = 59847-5) 4.0 g/dL 3.5-5 Specimen slightly hemolyzed Total Bilirubin (test code = 1975-2) 1.2 mg/dL 0.2-1.2 Specimen slightly hemolyzed Bilirubin, Direct (test code = 1967-7) 0.6 mg/dL 0.1-0.5 H Specimen slightly hemolyzed Alkaline Phosphatase (test code = 6768-6) 109 U/L 40-150 AST (test code = 1920-8) 30 U/L 5-34 Spe cimen slightly hemolyzed ALT (test code = 1742-6) 16 U/L 6-55 Spe cimen slightly hemolyzed FATIMAH (test code = FATIMAH) Assembler Hydraulic Backhoe ID - JOY Lab Interpretation (test code = 88396-0) [facility]normal [facility] CenterLipase2020-04-16 19:13:00* Test Item Value Reference Range Interpretation Comments Lipase (test code = 3040-3) 52 U/L 8-78 FATIMAH (test code = FATIMAH) Assembler Hydraulic Backhoe ID - JOY Lab Interpretation (test code = 47930-8) Normal [facility] CenterLIPASE2020-04-16 19:13:00* Test Item Value Reference Range Interpretation Comments LIPASE (BEAKER) (test code = 749) 52 U/L 8-78 Assembler Hydraulic Backhoe ID - JOY MBASIC METABOLIC [id number] 19:13:00* Test Item Value Reference Range Interpretation Comments SODIUM (BEAKER) (test code = 381) 142 meq/L 136-145 POTASSIUM (BEAKER) (test code = 379) 3.3 meq/L 3.5-5.1 L Specimen slightly hemolyzed CHLORIDE (BEAKER) (test code = 382) 105 meq/L 98-107 CO2 (BEAKER) (test code = 355) 27 meq/L 22-29 BLOOD UREA NITROGEN (BEAKER) (test code = 354) 17 mg/dL 7-21 CREATININE (BEAKER) (test code = 358) 1.54 mg/dL 0.57-1.25 H Specimen slightly hemolyzed GLUCOSE RANDOM (BEAKER) (test code = 652) 245 mg/dL 70-105 H CALCIUM (BEAKER) (test code = 697) 9.3 mg/dL 8.4-10.2 EGFR (BEAKER) (test code = 1092) 33 mL/min/1.73 sq m ESTIMATED GFR IS NOT ACCURATE CREATININE CLEARANCE IN PREDICTING GLOMERULAR FILTRATION RATE. ESTIMATED GFR IS NOT APPLICABLE FOR DIALYSIS PATIENTS. Assembler Hydraulic Backhoe ID - JOY EPATIC FUNCTION [id number] 19:13:00* Test Item Value Reference Range Interpretation Comments TOTAL PROTEIN (BEAKER) (test code = 770) 7.3 gm/dL 6.0-8.3 Specimen slightly hemolyzed ALBUMIN (BEAKER) (test code = 1145) 4.0 g/dL 3.5-5.0 Specimen slightly hemolyzed BILIRUBIN TOTAL (BEAKER) (test code = 377) 1.2 mg/dL 0.2-1.2 Specimen slightly hemolyzed BILIRUBIN DIRECT (BEAKER) (test code = 706) 0.6 mg/dL 0.1-0.5 H Specimen slightly hemolyzed ALKALINE PHOSPHATASE (BEAKER) (test code = 346) 109 U/L 40-150 AST (SGOT) (BEAKER) (test code = 353) 30 U/L 5-34 Specimen slightly hemolyzed ALT (SGPT) (BEAKER) (test code = 347) 16 U/L 6-55 Specimen slightly hemolyzed Assembler Hydraulic Backhoe ID - JOY MRAD, ABDOMEN, 2 [id number] 19:12:00Reason for exam:-> gi bleedShould this be performed at the bedside?->YesFINAL REPORT TECHNIQUE: Supine and upright views of the abdomen. INDICATION: GI bleed. COMPARISON: 09/09/2019. FINDINGS/IMPRESSION: Bowel gas pattern is nonobstructive. No evidence of free air on upright views. A biliary metallic stent is present. No acute bone abnormality. Moderate thoracolumbar lumbar scoliosis and aortic calcification similar to prior. Signed: Marita Kline Verified Date/Time: 10/26/2019 19:12:09 abdomen 2 views flat and upright 2019-10-26 19:12:00Interface, External Ris In - 10/26/2019 7:14 PM CDTFINAL REPORT TECHNIQUE: Supine and upright views of the abdomen. INDICATION: GI bleed. COMPARISON: 09/09/2019. FINDINGS/IMPRESSION: Bowel gas pattern is nonobstructive. No evidence of free air on upright views. A biliary metallic stent is present. No acute bone abnormality. Moderate thoracolumbar lumbar scoliosis and aortic calcification similar to prior. Signed: Marita Kline Verified Date/Time: 10/26/2019 19:12:09 [facility], 1 [facility], NON [id number] 19:07:00Reason for exam:- >gi bleedShould this be performed at the bedside?->YesFINAL REPORT INDICATION: gi bleed COMPARISON: 10/03/2019 TECHNIQUE: Single frontal view of the chest. IMPRESSION: Lungs and pleura: Significantly improved aeration of the left lung compared to prior with mild left basilar subsegmental atelectasis. No consolidation or sizable effusion. No pneumothorax.Heart and mediastinum: Normal heart size. Moderate calcifications at the aortic arch.Osseous structures: No acute abnormality. Prior median sternotomy.Other: None. Signed: Marita Kline Verified Date/Time: 10/26/2019 19:07:20 chest 1 view portable / [id number] 19:07:00Interface, External Ris In - 10/26/2019 7:09 PM CDTFINAL REPORT INDICATION: gi bleed COMPARISON: 10/03/2019 TECHNIQUE: Single frontal view of the chest. IMPRESSION: Lungs and pleura: Significantly improved aeration of the left lung compared to prior with mild left basilar subsegmental atelectasis. No consolidation or sizable effusion. No pneumothorax.Heart and mediastinum: Normal heart size. Moderate calcifications at the aortic arch.Osseous structures: No acute abnormality. Prior median sternotomy.Other: None. Signed: Marita Klineeport Verified Date/Time: 10/26/2019 19:07:20 [facility] CenterPT/APTT 2019-10-26 18:55:00* Test Item Value Reference Range Interpretation Comments PROTIME (BEAKER) (test code = 759) 14.4 seconds 11.9-14.2 H INR (BEAKER) (test code = 370) 1.2 <=5.9 PARTIAL THROMBOPLASTIN TIME (BEAKER) (test code = 760) 33.7 seconds 22.5-36.0 Effective 12/07/2018: PT Reference Range ChangeNew: 11.9-14.2 Previous: 11.7-14. 7RECOMMENDED COUMADIN/WARFARIN INR THERAPY RANGESSTANDARD DOSE: 2.0-3.0 Include s: PROPHYLAXIS for venous thrombosis, systemic embolization; TREATMENT for venou s thrombosis and/or pulmonary embolus.HIGH RISK: Target INR is 2.5-3.5 for patie nts wiht mechanical heart valves.CBC W/PLT COUNT & AUTO [id number] 18:44:00* Test Item Value Reference Range Interpretation Comments WHITE BLOOD CELL COUNT (BEAKER) (test code = 775) 7.3 K/ L 3.5- 10.5 RED BLOOD CELL COUNT (BEAKER) (test code = 761) 4.44 M/ L 3.93-5 .22 HEMOGLOBIN (BEAKER) (test code = 410) 14.1 GM/DL 11.2-15.7 HEMATOCRIT (BEAKER) (test code = 411) 42.3 % 34.1-44.9 MEAN CORPUSCULAR VOLUME (BEAKER) (test code = 753) 95.3 fL 79. 4-94.8 H MEAN CORPUSCULAR HEMOGLOBIN (BEAKER) (test code = 751) 31.8 pg 25.6-32.2 MEAN CORPUSCULAR HEMOGLOBIN CONC (BEAKER) (test code = 752) 33.3 GM/DL 32.2-35.5 RED CELL DISTRIBUTION WIDTH (BEAKER) (test code = 412) 13.7 % 11.7-14.4 PLATELET COUNT (BEAKER) (test code = 756) 204 K/CU MM 150-450 MEAN PLATELET VOLUME (BEAKER) (test code = 754) 10.5 fL 9.4-12 .3 NUCLEATED RED BLOOD CELLS (BEAKER) (test code = 413) 0 /100 WBC 0 -0 NEUTROPHILS RELATIVE PERCENT (BEAKER) (test code = 429) 49 % LYMPHOCYTES RELATIVE PERCENT (BEAKER) (test code = 430) 41 % MONOCYTES RELATIVE PERCENT (BEAKER) (test code = 431) 7 % EOSINOPHILS RELATIVE PERCENT (BEAKER) (test code = 432) 3 % BASOPHILS RELATIVE PERCENT (BEAKER) (test code = 437) 1 % NEUTROPHILS ABSOLUTE COUNT (BEAKER) (test code = 670) 3.53 K/ L 1.56-6.13 LYMPHOCYTES ABSOLUTE COUNT (BEAKER) (test code = 414) 2.97 K/ L 1.18-3.74 MONOCYTES ABSOLUTE COUNT (BEAKER) (test code = 415) 0.49 K/ L 0. 24-0.36 H EOSINOPHILS ABSOLUTE COUNT (BEAKER) (test code = 416) 0.18 K/ L 0.04-0.36 BASOPHILS ABSOLUTE COUNT (BEAKER) (test code = 417) 0.07 K/ L 0. 01-0.08 IMMATURE GRANULOCYTES-RELATIVE PERCENT (BEAKER) (test code = 2801) 0 % 0-1 POCT-GLUCOSE [id number] 07:38:00* Test Item Value Reference Range Interpretation Comments POC-GLUCOSE METER (BEAKER) (test code = 1538) 137 mg/dL 70-110 H : TESTED AT [facility] [address] [facility], [address]: Assembler Hydraulic Backhoe/Student Career Development Specialist ID = [id number] for AJAY STEIN POCT-GLUCOSE [id number] 20:22:00* Test Item Value Reference Range Interpretation Comments POC-GLUCOSE METER (BEAKER) (test code = 1538) 244 mg/dL 70-110 H : TESTED AT [facility] [address] [facility], [address]: Assembler Hydraulic Backhoe/Student Career Development Specialist ID = [id number] for SCOTT MELCHOR POCT-GLUCOSE [id number] 16:37:00* Test Item Value Reference Range Interpretation Comments POC-GLUCOSE METER (BEAKER) (test code = 1538) 229 mg/dL 70-110 H : TESTED AT [address], [address]: Assembler Hydraulic Backhoe/Student Career Development Specialist ID = [id number] for ERICA CHEUNG POCT-GLUCOSE [id number] 12:06:00* Test Item Value Reference Range Interpretation Comments POC-GLUCOSE METER (BEAKER) (test code = 1538) 267 mg/dL 70-110 H : TESTED AT [address], [address]: Assembler Hydraulic Backhoe/Student Career Development Specialist ID = [id number] for EDWIN CHEUNGNDA POCT-GLUCOSE [id number] 07:11:00* Test Item Value Reference Range Interpretation Comments POC-GLUCOSE METER (BEAKER) (test code = 1538) 239 mg/dL 70-110 H : TESTED AT [address], [address]: Assembler Hydraulic Backhoe/Student Career Development Specialist ID = [id number] for ERICA CHEUNG POCT-GLUCOSE [id number] 20:27:00* Test Item Value Reference Range Interpretation Comments POC-GLUCOSE METER (BEAKER) (test code = 1538) 200 mg/dL 70-110 H : TESTED AT [address], [address]: Assembler Hydraulic Backhoe/Student Career Development Specialist ID = [id number] for SCOTT MELCHOR POCT-GLUCOSE [id number] 16:38:00* Test Item Value Reference Range Interpretation Comments POC-GLUCOSE METER (BEAKER) (test code = 1538) 200 mg/dL 70-110 H : TESTED AT [address], [address]: Assembler Hydraulic Backhoe/Student Career Development Specialist ID = [id number] for QUEEN GARCIA POCT-GLUCOSE [id number] 12:30:00* Test Item Value Reference Range Interpretation Comments POC-GLUCOSE METER (BEAKER) (test code = 1538) 328 mg/dL 70-110 H : TESTED AT [address], [address]: Assembler Hydraulic Backhoe/Student Career Development Specialist ID = [id number] for JOSE CASTRO POCT-GLUCOSE [id number] 07:09:00* Test Item Value Reference Range Interpretation Comments POC-GLUCOSE METER (BEAKER) (test code = 1538) 171 mg/dL 70-110 H : TESTED AT [address], [address]: Assembler Hydraulic Backhoe/Student Career Development Specialist ID = [id number] for QUEEN GARCIA BASIC METABOLIC [id number] 05:07:00* Test Item Value Reference Range Interpretation Comments SODIUM (BEAKER) (test code = 381) 141 meq/L 136-145 POTASSIUM (BEAKER) (test code = 379) 3.6 meq/L 3.5-5.1 CHLORIDE (BEAKER) (test code = 382) 103 meq/L 98-107 CO2 (BEAKER) (test code = 355) 27 meq/L 22-29 BLOOD UREA NITROGEN (BEAKER) (test code = 354) 12 mg/dL 7-21 CREATININE (BEAKER) (test code = 358) 1.16 mg/dL 0.57-1.25 GLUCOSE RANDOM (BEAKER) (test code = 652) 197 mg/dL 70-105 H CALCIUM (BEAKER) (test code = 697) 8.5 mg/dL 8.4-10.2 EGFR (BEAKER) (test code = 1092) 45 mL/min/1.73 sq m ESTIMATED GFR IS NOT ACCURATE CREATININE CLEARANCE IN PREDICTING GLOMERULAR FILTRATION RATE. ESTIMATED GFR IS NOT APPLICABLE FOR DIALYSIS PATIENTS. Assembler [employer] ID - PIAYA LCBC W/PLT COUNT & AUTO [id number] 04:17:00* Test Item Value Reference Range Interpretation Comments WHITE BLOOD CELL COUNT (BEAKER) (test code = 775) 5.5 K/ L 3.5- 10.5 RED BLOOD CELL COUNT (BEAKER) (test code = 761) 3.63 M/ L 3.93-5 .22 L HEMOGLOBIN (BEAKER) (test code = 410) 11.5 GM/DL 11.2-15.7 HEMATOCRIT (BEAKER) (test code = 411) 35.9 % 34.1-44.9 MEAN CORPUSCULAR VOLUME (BEAKER) (test code = 753) 98.9 fL 79. 4-94.8 H MEAN CORPUSCULAR HEMOGLOBIN (BEAKER) (test code = 751) 31.7 pg 25.6-32.2 MEAN CORPUSCULAR HEMOGLOBIN CONC (BEAKER) (test code = 752) 32.0 GM/DL 32.2-35.5 L RED CELL DISTRIBUTION WIDTH (BEAKER) (test code = 412) 14.6 % 11.7-14.4 H PLATELET COUNT (BEAKER) (test code = 756) 149 K/CU MM 150-450 L MEAN PLATELET VOLUME (BEAKER) (test code = 754) 10.5 fL 9.4-12 .3 NUCLEATED RED BLOOD CELLS (BEAKER) (test code = 413) 0 /100 WBC 0 -0 NEUTROPHILS RELATIVE PERCENT (BEAKER) (test code = 429) 48 % LYMPHOCYTES RELATIVE PERCENT (BEAKER) (test code = 430) 41 % MONOCYTES RELATIVE PERCENT (BEAKER) (test code = 431) 7 % EOSINOPHILS RELATIVE PERCENT (BEAKER) (test code = 432) 3 % BASOPHILS RELATIVE PERCENT (BEAKER) (test code = 437) 1 % NEUTROPHILS ABSOLUTE COUNT (BEAKER) (test code = 670) 2.65 K/ L 1.56-6.13 LYMPHOCYTES ABSOLUTE COUNT (BEAKER) (test code = 414) 2.26 K/ L 1.18-3.74 MONOCYTES ABSOLUTE COUNT (BEAKER) (test code = 415) 0.40 K/ L 0. 24-0.36 H EOSINOPHILS ABSOLUTE COUNT (BEAKER) (test code = 416) 0.15 K/ L 0.04-0.36 BASOPHILS ABSOLUTE COUNT (BEAKER) (test code = 417) 0.05 K/ L 0. 01-0.08 IMMATURE GRANULOCYTES-RELATIVE PERCENT (BEAKER) (test code = 2801) 0 % 0-1 CT, CHEST, WITHOUT [id number] 22:07:00Anesthesia:->NoneFINAL REPORT CT of the Chest dated 10/06/2019 [...] region. Trachea and mainstem bronchi are patent. S ubsegmental atelectasis versus scarring is seen in the lingula, right mid, and b oth lower lobes. No nodular, mass lesion or airspace disease is noted. No inter stitial disease or bronchiectasis is present. Trace left pleural effusion is see n. A right chest tube is present. No pneumothorax is seen. Visualized upper abdo men demonstrates no focal lesion. Impression: 1. Subsegmental atelectasis lingul a, right mid, and both lower lobes.2. Trace left pleural effusion and no right p leural effusion or pneumothorax. Signed: Marita Bartonort Verified Date/Time : 10/06/2019 22:07:58 Reading Location: [facility] B1 C013W Consult Reading Room chest without IV [id number] 22:07:00Interface, External Ris In - 10/06/2019 10:[address] of the Chest dated 10/06/2019 [...] focal lesion. Impression: 1. Subsegmental atelectasis lingula, right mid, and both lower lobes.2. Trace left pleural effusion and no right pleural effusion or pneumotho rax. Signed: Marita Barton MDReport Verified Date/Time: 10/06/2019 22:07:58 Readi ng Location: [facility] B1 C013W Consult [facility] [id number] 20:24:00* Test Item Value Reference Range Interpretation Comments POC-GLUCOSE METER (BEAKER) (test code = 1538) 239 mg/dL 70-110 H : TESTED AT [address], [address]: Assembler Hydraulic Backhoe/Student Career Development Specialist ID = [id number] for SCOTT MELCHOR POCT-GLUCOSE [id number] 17:05:00* Test Item Value Reference Range Interpretation Comments POC-GLUCOSE METER (BEAKER) (test code = 1538) 230 mg/dL 70-110 H : TESTED AT [address], [address]: Assembler Hydraulic Backhoe/Student Career Development Specialist ID = [id number] for QUEEN GARCIA POCT-GLUCOSE [id number] 12:28:00* Test Item Value Reference Range Interpretation Comments POC-GLUCOSE METER (BEAKER) (test code = 1538) 241 mg/dL 70-110 H : TESTED AT [address], [address]: Assembler Hydraulic Backhoe/Student Career Development Specialist ID = [id number] for QUEEN GARCIA POCT-GLUCOSE [id number] 07:21:00* Test Item Value Reference Range Interpretation Comments POC-GLUCOSE METER (BEAKER) (test code = 1538) 177 mg/dL 70-110 H : TESTED AT [address], [address]: Assembler Hydraulic Backhoe/Student Career Development Specialist ID = [id number] for QUEEN GARCIA BASIC METABOLIC [id number] 05:10:00* Test Item Value Reference Range Interpretation Comments SODIUM (BEAKER) (test code = 381) 141 meq/L 136-145 POTASSIUM (BEAKER) (test code = 379) 3.6 meq/L 3.5-5.1 CHLORIDE (BEAKER) (test code = 382) 106 meq/L 98-107 CO2 (BEAKER) (test code = 355) 29 meq/L 22-29 BLOOD UREA NITROGEN (BEAKER) (test code = 354) 12 mg/dL 7-21 CREATININE (BEAKER) (test code = 358) 0.98 mg/dL 0.57-1.25 GLUCOSE RANDOM (BEAKER) (test code = 652) 206 mg/dL 70-105 H CALCIUM (BEAKER) (test code = 697) 8.2 mg/dL 8.4-10.2 L EGFR (BEAKER) (test code = 1092) 55 mL/min/1.73 sq m ESTIMATED GFR IS NOT ACCURATE CREATININE CLEARANCE IN PREDICTING GLOMERULAR FILTRATION RATE. ESTIMATED GFR IS NOT APPLICABLE FOR DIALYSIS PATIENTS. Assembler Hydraulic Backhoe ID - SINTIA LPOCT-GLUCOSE [id number] 21:30:00* Test Item Value Reference Range Interpretation Comments POC-GLUCOSE METER (BEAKER) (test code = 1538) 207 mg/dL 70-110 H : TESTED AT [place] [id number] [facility], [address]: Assembler Hydraulic Backhoe/Student Career Development Specialist ID = [id number] for DEJON ROMO POCT-GLUCOSE [id number] 18:30:00* Test Item Value Reference Range Interpretation Comments POC-GLUCOSE METER (BEAKER) (test code = 1538) 156 mg/dL 70-110 H : TESTED AT [place] [id number] [facility], [address]: Assembler Hydraulic Backhoe/Student Career Development Specialist ID = [id number] for QUARTMAN, AJAY POCT-GLUCOSE [id number] 18:20:00* Test Item Value Reference Range Interpretation Comments POC-GLUCOSE METER (BEAKER) (test code = 1538) 204 mg/dL 70-110 H : TESTED AT [place] [id number] [facility], [address]: Assembler Hydraulic Backhoe/Student Career Development Specialist ID = [id number] for QUARTMAN, AJAY ANG, PERC TUNNELED INTRAPERITONEAL CATH, ALL [id number] 14:49:00Reason for exam:->SHORTNESS OF BREATH Reason for exam:->Pleurx catheter drainage leak FINAL REPORT History: Leaking Pleurx catheter. PROCEDURE: Following informed written consent, the patient's existing right lateral chest wall tunneled pleural catheter and surrounding skin site were prepped and draped in the usual sterile manner. 2% lidocaine was given locally for anesthesia. Flu oroscopic visualization of the catheter position was performed. The catheter was then advanced into a deeper position of the right pleural space over a 4 Serbian Berenstein catheter and superstiff Glidewire contrast injection was performed t o confirm that the sideholes of the catheter lie within the pleural space. The c atheter was then flushed and attempt was made to aspirate fluid using a Vacutain er device. Only a trace amount of approximately 50 cc of fluid was removed. Over all, the patient tolerated the procedure well without immediate complications an d was discharged from the department in stable condition. FINDINGS: Initial fluo roscopic visualization of catheter position demonstrates the proximal most sideh ole of the tunneled right Pleurx catheter to lie just outside of the pleural spa ce in the chest wall. This position has changed significantly since initial cath eter placement 2 days ago. Following catheter repositioning, the catheter lies i n a deeper position within the right pleural space with sideholes of the cathete r clearly within the pleural cavity. Injected contrast confirms position of the catheter and sideholes within the pleural space. IMPRESSION: 1. Successful uncom plicated fluoroscopically guided repositioning of the patient's tunneled right p leural catheter. Total fluoroscopy time: 2.9 minutes. Estimated total patient dose reported as (Ka,r): 30 mGy Signed: Elicia Yee MDReport Verified Date/Juan R e: 10/05/2019 14:49:39 Reading Location: [facility] Diagnostic Imaging Reading Room - [facility] [id number] Electronically signed by: ELICIA YEE M.D. on 020 02:49 PM ANG INTRAPERITONEAL PERMANENT [id number] 14:49:00Interface, External Ris In - 10/05/2019 2:51 PM CDTFINAL REPORT History: Leaking Pleurx catheter. PROCEDURE: Following [...] the right pleural space over a 4 Serbian Berenstein catheter and sup erstiff Glidewire contrast injection was performed to confirm that the sideholes of the catheter lie within the pleural space. The catheter was then flushed and attempt was made to aspirate fluid using a Vacutainer device. Only a trace amou nt of approximately 50 cc of fluid was removed. Overall, the patient tolerated t he procedure well without immediate complications and [facility] FINDINGS: Initial fluoroscopic visualization of ca theter position demonstrates the proximal most sidehole of the tunneled right Pl eurx catheter to lie just outside of the pleural space in the chest wall. This p osition has changed significantly since initial catheter placement 2 days ago. F ollowing catheter repositioning, the catheter lies in a deeper position within t he right pleural space with sideholes of the catheter clearly within the pleural cavity. Injected contrast confirms position of the catheter and sideholes withi n the pleural space. IMPRESSION: 1. Successful uncomplicated fluoroscopically gu ided repositioning of the patient's tunneled right pleural catheter. Total flu oroscopy time: 2.9 minutes. Estimated total patient dose reported as (Ka,r): 30 mGy Signed: Elicia Yee MDReport Verified Date/Time: 10/05/2019 14:49:39 Read ing Location: [facility] Diagnostic Imaging Reading Room - [facility] [id number] [place] signed by: ELICIA YEE M.D. on 10/05/2019 02:49 PM [facility] [id number] 10:03:00* Test Item Value Reference Range Interpretation Comments POC-GLUCOSE METER (BEAKER) (test code = 1538) 170 mg/dL 70-110 H : TESTED AT [facility] [address] [facility], [address]: Assembler Hydraulic Backhoe/Student Career Development Specialist ID = [id number] for AJAY STEIN Prothrombin time/[id number] 05:59:00* Test Item Value Reference Range Interpretation Comments Protime (test code = 5902-2) 13.7 11.9- 14.2 seconds INR (test code = 6301-6) 1.1 <=5.9 FATIMAH (test code = FATIMAH) Effective 12/07/2018: PT Refe rence Range ChangeNew: 11.9- 14.2 Previous: 11.7-14.7 RECOMMENDED COUMADIN/WARFARIN INR THERAPY RANGESSTANDARD DOSE: 2.0-3.0 Includes: PROPHYLAXIS for venous thrombosis, sys temic embolization; TREATMENT for venous thrombosis and/or pulmonary embolus.HIGH RISK: Target INR is 2.5-3.5 for patients wiht mechanical heart valves. Lab Interpretation (test code = 33141-3) Normal [facility] CenterPROTHROMBIN TIME/[id number] 05:59:00* Test Item Value Reference Range Interpretation Comments PROTIME (BEAKER) (test code = 759) 13.7 seconds 11.9-14.2 INR (BEAKER) (test code = 370) 1.1 <=5.9 Effective 12/07/2018: PT Reference Range ChangeNew: 11.9-14.2 Previous: 11.7-14. 7RECOMMENDED COUMADIN/WARFARIN INR THERAPY RANGESSTANDARD DOSE: 2.0-3.0 Include s: PROPHYLAXIS for venous thrombosis, systemic embolization; TREATMENT for venou s thrombosis and/or pulmonary embolus.HIGH RISK: Target INR is 2.5-3.5 for patie nts wiht mechanical heart valves.BASIC METABOLIC [id number] 05:55:00* Test Item Value Reference Range Interpretation Comments SODIUM (BEAKER) (test code = 381) 142 meq/L 136-145 POTASSIUM (BEAKER) (test code = 379) 3.4 meq/L 3.5-5.1 L CHLORIDE (BEAKER) (test code = 382) 108 meq/L 98-107 H CO2 (BEAKER) (test code = 355) 29 meq/L 22-29 BLOOD UREA NITROGEN (BEAKER) (test code = 354) 11 mg/dL 7-21 CREATININE (BEAKER) (test code = 358) 0.85 mg/dL 0.57-1.25 GLUCOSE RANDOM (BEAKER) (test code = 652) 140 mg/dL 70-105 H CALCIUM (BEAKER) (test code = 697) 8.2 mg/dL 8.4-10.2 L EGFR (BEAKER) (test code = 1092) 65 mL/min/1.73 sq m ESTIMATED GFR IS NOT ACCURATE CREATININE CLEARANCE IN PREDICTING GLOMERULAR FILTRATION RATE. ESTIMATED GFR IS NOT APPLICABLE FOR DIALYSIS PATIENTS. Assembler Hydraulic Backhoe ID - JOY MCBC W/PLT COUNT & AUTO [id number] 05:37:00* Test Item Value Reference Range Interpretation Comments WHITE BLOOD CELL COUNT (BEAKER) (test code = 775) 5.4 K/ L 3.5- 10.5 RED BLOOD CELL COUNT (BEAKER) (test code = 761) 3.67 M/ L 3.93-5 .22 L HEMOGLOBIN (BEAKER) (test code = 410) 11.4 GM/DL 11.2-15.7 HEMATOCRIT (BEAKER) (test code = 411) 36.1 % 34.1-44.9 MEAN CORPUSCULAR VOLUME (BEAKER) (test code = 753) 98.4 fL 79. 4-94.8 H MEAN CORPUSCULAR HEMOGLOBIN (BEAKER) (test code = 751) 31.1 pg 25.6-32.2 MEAN CORPUSCULAR HEMOGLOBIN CONC (BEAKER) (test code = 752) 31.6 GM/DL 32.2-35.5 L RED CELL DISTRIBUTION WIDTH (BEAKER) (test code = 412) 14.8 % 11.7-14.4 H PLATELET COUNT (BEAKER) (test code = 756) 146 K/CU MM 150-450 L MEAN PLATELET VOLUME (BEAKER) (test code = 754) 10.6 fL 9.4-12 .3 NUCLEATED RED BLOOD CELLS (BEAKER) (test code = 413) 0 /100 WBC 0 -0 NEUTROPHILS RELATIVE PERCENT (BEAKER) (test code = 429) 48 % LYMPHOCYTES RELATIVE PERCENT (BEAKER) (test code = 430) 41 % MONOCYTES RELATIVE PERCENT (BEAKER) (test code = 431) 8 % EOSINOPHILS RELATIVE PERCENT (BEAKER) (test code = 432) 3 % BASOPHILS RELATIVE PERCENT (BEAKER) (test code = 437) 1 % NEUTROPHILS ABSOLUTE COUNT (BEAKER) (test code = 670) 2.56 K/ L 1.56-6.13 LYMPHOCYTES ABSOLUTE COUNT (BEAKER) (test code = 414) 2.19 K/ L 1.18-3.74 MONOCYTES ABSOLUTE COUNT (BEAKER) (test code = 415) 0.41 K/ L 0. 24-0.36 H EOSINOPHILS ABSOLUTE COUNT (BEAKER) (test code = 416) 0.17 K/ L 0.04-0.36 BASOPHILS ABSOLUTE COUNT (BEAKER) (test code = 417) 0.03 K/ L 0. 01-0.08 IMMATURE GRANULOCYTES-RELATIVE PERCENT (BEAKER) (test code = 2801) 0 % 0-1 POCT-GLUCOSE [id number] 21:00:00* Test Item Value Reference Range Interpretation Comments POC-GLUCOSE METER (BEAKER) (test code = 1538) 271 mg/dL 70-110 H : TESTED AT [address], [address]: Assembler Hydraulic Backhoe/Student Career Development Specialist ID = [id number] for GE, GABI ANG, DRAINAGE, WITH CATHETER [id number] 17:43:00Reason for Exam:-> pleural effusionFINAL REPORT History: Pancreatic cancer, recurrent right pleural [...] amount of residual pleural fluid is identified. IMP RESSION: 1. Technically successful uncomplicated ultrasound and fluoroscopically guided placement of a tunneled right pleural catheter. Thoracentesis was perfor med through the catheter immediately after placement. Signed: Elicia Yee port Verified Date/Time: 10/04/2019 17:43:09 Reading Location: [facility] 05 :43 PM IR Tunneled Drainage Catheter [id number] 17:43:00Interface, External Ris In - 10/04/2019 5:45 PM CDTFINAL REPORT History: Pancreatic cancer, recurrent right pleural effusion. PROCEDURE: Following informed written consent, the patient was placed in a supine position on the angiographic table and her right chest was prepped and draped in the usu al sterile manner. Maximum sterile barrier techniques were utilized. 2% lidocain e was given locally for anesthesia. No conscious sedation was administered. Usin g ultrasound and fluoroscopic guidance and a right mid axillary approach, a 19-g auge singlewall needle was advanced percutaneously into the patient's right pleu ral fluid collection. A wire was advanced through the needle and directed centra lly into the right pleural apex. A subcutaneous tunnel was created in the right lateral chest wall. Pleurx catheter was tunneled and, cut to an appropriate nakia th and placed through a peel-away sheath and into position within the right pleu ral space under fluoroscopic control. The catheter was then secured to the skin using 2-0 silk suture. The small incision site at the entry point was closed usi ng 2-0 chromic suture. The catheter was then immediately used along with a Vacut ainer device to remove approximately 1.2 L of clear yellow fluid from the right pleural cavity. Overall, the patient tolerated the procedure well without immedi ate complications and was discharged from the department in stable condition. FI NDINGS: Ultrasound images of the right chest performed prior to and during the p rocedure demonstrate a moderate size right pleural fluid collection. Ultrasound images were obtained and archived to PACS. Following placement of the patient's tunneled right Pleurx catheter, the catheter is noted to lie in expected positio n with its tip in the right pleural apex. Initially, a moderate size right pleur al effusion is noted. Following thoracentesis through the catheter, only a small amount of residual pleural fluid is identified. IMPRESSION: 1. Technically succ essful uncomplicated ultrasound and fluoroscopically guided placement of a tunne led right pleural catheter. Thoracentesis was performed through the catheter imm ediately after placement. Signed: Elicia Yee MDReport Verified Date/Time: 17:43:09 Reading Location: [facility] Radiology Reading Room [facility] signed by: ELICIA YEE M.D. on 10/04/2019 05:43 PM [facility] [id number] 16:22:00* Test Item Value Reference Range Interpretation Comments POC-GLUCOSE METER (BEAKER) (test code = 1538) 295 mg/dL 70-110 H : TESTED AT [facility] [address] [facility], [address]: Assembler Hydraulic Backhoe/Student Career Development Specialist ID = [id number] for AJAY STEIN POCT-GLUCOSE [id number] 09:30:00* Test Item Value Reference Range Interpretation Comments POC-GLUCOSE METER (BEAKER) (test code = 1538) 180 mg/dL 70-110 H : TESTED AT [facility] [address] [facility], [address]: Assembler Hydraulic Backhoe/Student Career Development Specialist ID = [id number] for MARILEE BRITO TROPONIN [id number] 04:38:00* Test Item Value Reference Range Interpretation Comments TROPONIN I (BEAKER) (test code = 397) 0.01 ng/mL 0.00-0.03 Troponin I (TnI) levels must be interpreted in the context of the presenting sym ptoms and the clinical findings. Elevated TnI levels indicate myocardial damage, but are not specific for ischemic heart disease. Elevated TnI levels are seen i n patients with other cardiac conditions (including myocarditis and congestive h eart failure), and slight TnI elevations occur in patients with other conditions , including sepsis, renal failure, acidosis, acute neurological disease, and per sistent tachyarrhythmia.Assembler Hydraulic Backhoe ID - JOY MBASIC METABOLIC [id number] 04:30:00* Test Item Value Reference Range Interpretation Comments SODIUM (BEAKER) (test code = 381) 142 meq/L 136-145 POTASSIUM (BEAKER) (test code = 379) 3.2 meq/L 3.5-5.1 L CHLORIDE (BEAKER) (test code = 382) 105 meq/L 98-107 CO2 (BEAKER) (test code = 355) 29 meq/L 22-29 BLOOD UREA NITROGEN (BEAKER) (test code = 354) 12 mg/dL 7-21 CREATININE (BEAKER) (test code = 358) 1.01 mg/dL 0.57-1.25 GLUCOSE RANDOM (BEAKER) (test code = 652) 265 mg/dL 70-105 H CALCIUM (BEAKER) (test code = 697) 8.3 mg/dL 8.4-10.2 L EGFR (BEAKER) (test code = 1092) 53 mL/min/1.73 sq m ESTIMATED GFR IS NOT ACCURATE CREATININE CLEARANCE IN PREDICTING GLOMERULAR FILTRATION RATE. ESTIMATED GFR IS NOT APPLICABLE FOR DIALYSIS PATIENTS. Assembler Hydraulic Backhoe ID - JOY MCBC W/PLT COUNT & AUTO [id number] 04:12:00* Test Item Value Reference Range Interpretation Comments WHITE BLOOD CELL COUNT (BEAKER) (test code = 775) 5.6 K/ L 3.5- 10.5 RED BLOOD CELL COUNT (BEAKER) (test code = 761) 3.55 M/ L 3.93-5 .22 L HEMOGLOBIN (BEAKER) (test code = 410) 11.4 GM/DL 11.2-15.7 HEMATOCRIT (BEAKER) (test code = 411) 34.8 % 34.1-44.9 MEAN CORPUSCULAR VOLUME (BEAKER) (test code = 753) 98.0 fL 79. 4-94.8 H MEAN CORPUSCULAR HEMOGLOBIN (BEAKER) (test code = 751) 32.1 pg 25.6-32.2 MEAN CORPUSCULAR HEMOGLOBIN CONC (BEAKER) (test code = 752) 32.8 GM/DL 32.2-35.5 RED CELL DISTRIBUTION WIDTH (BEAKER) (test code = 412) 15.1 % 11.7-14.4 H PLATELET COUNT (BEAKER) (test code = 756) 115 K/CU MM 150-450 L MEAN PLATELET VOLUME (BEAKER) (test code = 754) 10.4 fL 9.4-12 .3 NUCLEATED RED BLOOD CELLS (BEAKER) (test code = 413) 0 /100 WBC 0 -0 NEUTROPHILS RELATIVE PERCENT (BEAKER) (test code = 429) 47 % LYMPHOCYTES RELATIVE PERCENT (BEAKER) (test code = 430) 42 % MONOCYTES RELATIVE PERCENT (BEAKER) (test code = 431) 8 % EOSINOPHILS RELATIVE PERCENT (BEAKER) (test code = 432) 2 % BASOPHILS RELATIVE PERCENT (BEAKER) (test code = 437) 1 % NEUTROPHILS ABSOLUTE COUNT (BEAKER) (test code = 670) 2.62 K/ L 1.56-6.13 LYMPHOCYTES ABSOLUTE COUNT (BEAKER) (test code = 414) 2.32 K/ L 1.18-3.74 MONOCYTES ABSOLUTE COUNT (BEAKER) (test code = 415) 0.43 K/ L 0. 24-0.36 H EOSINOPHILS ABSOLUTE COUNT (BEAKER) (test code = 416) 0.13 K/ L 0.04-0.36 BASOPHILS ABSOLUTE COUNT (BEAKER) (test code = 417) 0.04 K/ L 0. 01-0.08 IMMATURE GRANULOCYTES-RELATIVE PERCENT (BEAKER) (test code = 2801) 0 % 0-1 POCT-GLUCOSE [id number] 00:22:00* Test Item Value Reference Range Interpretation Comments POC-GLUCOSE METER (BEAKER) (test code = 1538) 237 mg/dL 70-110 H : TESTED AT [address], [address]: Assembler Hydraulic Backhoe/Student Career Development Specialist ID = [id number] for THOR MCDERMOTT PT/[id number] 20:55:00* Test Item Value Reference Range Interpretation Comments PROTIME (BEAKER) (test code = 759) 13.9 seconds 11.9-14.2 INR (BEAKER) (test code = 370) 1.1 <=5.9 PARTIAL THROMBOPLASTIN TIME (BEAKER) (test code = 760) 35.5 seconds 22.5-36.0 Effective 12/07/2018: PT Reference Range ChangeNew: 11.9-14.2 Previous: 11.7-14. 7RECOMMENDED COUMADIN/WARFARIN INR THERAPY RANGESSTANDARD DOSE: 2.0-3.0 Include s: PROPHYLAXIS for venous thrombosis, systemic embolization; TREATMENT for venou s thrombosis and/or pulmonary embolus.HIGH RISK: Target INR is 2.5-3.5 for patie nts wiht mechanical heart valves.CBC W/PLT COUNT & AUTO [id number] 20:10:00* Test Item Value Reference Range Interpretation Comments WHITE BLOOD CELL COUNT (BEAKER) (test code = 775) 6.4 K/ L 3.5- 10.5 RED BLOOD CELL COUNT (BEAKER) (test code = 761) 3.53 M/ L 3.93-5 .22 L HEMOGLOBIN (BEAKER) (test code = 410) 11.4 GM/DL 11.2-15.7 HEMATOCRIT (BEAKER) (test code = 411) 34.9 % 34.1-44.9 MEAN CORPUSCULAR VOLUME (BEAKER) (test code = 753) 98.9 fL 79. 4-94.8 H MEAN CORPUSCULAR HEMOGLOBIN (BEAKER) (test code = 751) 32.3 pg 25.6-32.2 H MEAN CORPUSCULAR HEMOGLOBIN CONC (BEAKER) (test code = 752) 32.7 GM/DL 32.2-35.5 RED CELL DISTRIBUTION WIDTH (BEAKER) (test code = 412) 15.3 % 11.7-14.4 H PLATELET COUNT (BEAKER) (test code = 756) 134 K/CU MM 150-450 L MEAN PLATELET VOLUME (BEAKER) (test code = 754) 10.4 fL 9.4-12 .3 NUCLEATED RED BLOOD CELLS (BEAKER) (test code = 413) 0 /100 WBC 0 -0 NEUTROPHILS RELATIVE PERCENT (BEAKER) (test code = 429) 47 % LYMPHOCYTES RELATIVE PERCENT (BEAKER) (test code = 430) 43 % MONOCYTES RELATIVE PERCENT (BEAKER) (test code = 431) 6 % EOSINOPHILS RELATIVE PERCENT (BEAKER) (test code = 432) 2 % BASOPHILS RELATIVE PERCENT (BEAKER) (test code = 437) 1 % NEUTROPHILS ABSOLUTE COUNT (BEAKER) (test code = 670) 3.05 K/ L 1.56-6.13 LYMPHOCYTES ABSOLUTE COUNT (BEAKER) (test code = 414) 2.78 K/ L 1.18-3.74 MONOCYTES ABSOLUTE COUNT (BEAKER) (test code = 415) 0.41 K/ L 0. 24-0.36 H EOSINOPHILS ABSOLUTE COUNT (BEAKER) (test code = 416) 0.12 K/ L 0.04-0.36 BASOPHILS ABSOLUTE COUNT (BEAKER) (test code = 417) 0.05 K/ L 0. 01-0.08 IMMATURE GRANULOCYTES-RELATIVE PERCENT (BEAKER) (test code = 2801) 0 % 0-1 TROPONIN [id number] 20:08:00* Test Item Value Reference Range Interpretation Comments TROPONIN I (BEAKER) (test code = 397) < ng/mL 0.00-0.03 Troponin I (TnI) levels must be interpreted in the context of the presenting sym ptoms and the clinical findings. Elevated TnI levels indicate myocardial damage, but are not specific for ischemic heart disease. Elevated TnI levels are seen i n patients with other cardiac conditions (including myocarditis and congestive h eart failure), and slight TnI elevations occur in patients with other conditions , including sepsis, renal failure, acidosis, acute neurological disease, and per sistent tachyarrhythmia.Assembler Hydraulic Backhoe ID - BSLactic acid, [id number] 19:57:00* Test Item Value Reference Range Interpretation Comments Lactate, Venous (test code = 2872) 1.54 mmol/L 0.5-2.2 Specimen moderately hemolyzed FATIMAH (test code = FATIMAH) Assembler Hydraulic Backhoe ID - BS Lab Interpretation (test code = 28652-7) [facility] Center[facility]CT[facility], [id number] 19:57:00* Test Item Value Reference Range Interpretation Comments LACTATE BLOOD VENOUS (2) (BEAKER) (test code = 2872) 1.54 mmol/L 0 .50-2.20 Specimen moderately hemolyzed Assembler Hydraulic Backhoe ID - BSB-type Natriuretic Factor (BNP)2019-10-03 19:35:00* Test Item Value Reference Range Interpretation Comments BNP (test code = 88042-8) 209 pg/mL 0-100 H FATIMAH (test code = FATIMAH) Assembler Hydraulic Backhoe ID - BS Lab Interpretation (test code = 38444-1) Abnormal [facility] Center[facility] NATRIURETIC FACTOR (BNP)2019-10-03 19:35:00 * Test Item Value Reference Range Interpretation Comments B-TYPE NATRIURETIC PEPTIDE (AKER) (test code = 700) 209 pg/mL 0-100 H [employer] ID - BSTROPONIN [id number] 19:35:00* Test Item Value Reference Range Interpretation Comments TROPONIN I (BEAKER) (test code = 397) 0.01 ng/mL 0.00-0.03 Troponin I (TnI) levels must be interpreted in the context of the presenting sym ptoms and the clinical findings. Elevated TnI levels indicate myocardial damage, but are not specific for ischemic heart disease. Elevated TnI levels are seen i n patients with other cardiac conditions (including myocarditis and congestive h eart failure), and slight TnI elevations occur in patients with other conditions , including sepsis, renal failure, acidosis, acute neurological disease, and per sistent tachyarrhythmia.[employer] ID - [id number] 19:27:00* Test Item Value Reference Range Interpretation Comments Magnesium (test code = 14321-4) 1.6 mg/dL 1.6-2.6 Specimen moderately hemolyzed FATIMAH (test code = FATIMAH) [employer] ID - BS Lab Interpretation (test code = 72913-0) [facility] 19:27:00* Test Item Value Reference Range Interpretation Comments MAGNESIUM (BEAKER) (test code = 627) 1.6 mg/dL 1.6-2.6 Specimen moderately hemolyzed [employer] ID - BSBASIC METABOLIC [id number] 19:27:00* Test Item Value Reference Range Interpretation Comments SODIUM (BEAKER) (test code = 381) 140 meq/L 136-145 POTASSIUM (BEAKER) (test code = 379) 4.1 meq/L 3.5-5.1 Specimen moderately hemolyzed CHLORIDE (BEAKER) (test code = 382) 108 meq/L 98-107 H CO2 (BEAKER) (test code = 355) 23 meq/L 22-29 BLOOD UREA NITROGEN (BEAKER) (test code = 354) 11 mg/dL 7-21 CREATININE (BEAKER) (test code = 358) 0.84 mg/dL 0.57-1.25 Specimen moderately hemolyzed GLUCOSE RANDOM (BEAKER) (test code = 652) 177 mg/dL 70-105 H CALCIUM (BEAKER) (test code = 697) 8.3 mg/dL 8.4-10.2 L EGFR (BEAKER) (test code = 1092) 66 mL/min/1.73 sq m ESTIMATED GFR IS NOT ACCURATE CREATININE CLEARANCE IN PREDICTING GLOMERULAR FILTRATION RATE. ESTIMATED GFR IS NOT APPLICABLE FOR DIALYSIS PATIENTS. [employer] ID - BSRAD, CHEST, 1 VIEW, NON [id number] 19:24:00Reason for exam:- >SHORTNESS OF BREATHFINAL REPORT RAD, CHEST, 1 VIEW, NON DEPT CLINICAL HISTORY: SHORTNESS OF BREATH TECHNIQUE: Single view of the chest. COMPARISON: September 16, 2019 IMPRESSION: Percutaneous drain projects over right upper abdominal quadrant/right lung base. Basilar pulmonary opacities likely representing atelectasis or small effusions. Significant decrease in size of right lung base opacity noted on September 16, 2019. Coarsened interstitial markings are present but nonspecific. Low lung volumes. No pneumothorax. No large pleural effusion. Cardiomediastinal silhouette is magnified by technique. Median sternotomy changes. Patient is rotated toward the left. Signed: Gabino Martinez MDReport Verified Date/Time: 10/03/2019 19:24:24 [id number] 10:45:00* Test Item Value Reference Range Interpretation Comments PTT (test code = 56782-7) 31.2 22.5- 36.0 seconds Lab Interpretation (test code = 91140-8) [facility] 10:45:00* Test Item Value Reference Range Interpretation Comments PARTIAL THROMBOPLASTIN TIME (BEAKER) (test code = 760) 31.2 seconds 22.5-36.0 PROTHROMBIN TIME/[id number] 10:44:00* Test Item Value Reference Range Interpretation Comments PROTIME (BEAKER) (test code = 759) 13.0 seconds 11.9-14.2 INR (BEAKER) (test code = 370) 1.0 <=5.9 Effective 12/07/2018: PT Reference Range ChangeNew: 11.9-14.2 Previous: 11.7-14. 7RECOMMENDED COUMADIN/WARFARIN INR THERAPY RANGESSTANDARD DOSE: 2.0-3.0 Include s: PROPHYLAXIS for venous thrombosis, systemic embolization; TREATMENT for venou s thrombosis and/or pulmonary embolus.HIGH RISK: Target INR is 2.5-3.5 for patie nts wiht mechanical heart valves.CBC W/PLT COUNT & AUTO [id number] 10:30:00* Test Item Value Reference Range Interpretation Comments WHITE BLOOD CELL COUNT (BEAKER) (test code = 775) 7.3 K/ L 3.5- 10.5 RED BLOOD CELL COUNT (BEAKER) (test code = 761) 4.06 M/ L 3.93-5 .22 HEMOGLOBIN (BEAKER) (test code = 410) 13.2 GM/DL 11.2-15.7 HEMATOCRIT (BEAKER) (test code = 411) 40.8 % 34.1-44.9 MEAN CORPUSCULAR VOLUME (BEAKER) (test code = 753) 100.5 fL 79. 4-94.8 H MEAN CORPUSCULAR HEMOGLOBIN (BEAKER) (test code = 751) 32.5 pg 25.6-32.2 H MEAN CORPUSCULAR HEMOGLOBIN CONC (BEAKER) (test code = 752) 32.4 GM/DL 32.2-35.5 RED CELL DISTRIBUTION WIDTH (BEAKER) (test code = 412) 15.3 % 11.7-14.4 H PLATELET COUNT (BEAKER) (test code = 756) 167 K/CU MM 150-450 MEAN PLATELET VOLUME (BEAKER) (test code = 754) 10.3 fL 9.4-12 .3 NUCLEATED RED BLOOD CELLS (BEAKER) (test code = 413) 0 /100 WBC 0 -0 NEUTROPHILS RELATIVE PERCENT (BEAKER) (test code = 429) 54 % LYMPHOCYTES RELATIVE PERCENT (BEAKER) (test code = 430) 36 % MONOCYTES RELATIVE PERCENT (BEAKER) (test code = 431) 6 % EOSINOPHILS RELATIVE PERCENT (BEAKER) (test code = 432) 2 % BASOPHILS RELATIVE PERCENT (BEAKER) (test code = 437) 1 % NEUTROPHILS ABSOLUTE COUNT (BEAKER) (test code = 670) 3.95 K/ L 1.56-6.13 LYMPHOCYTES ABSOLUTE COUNT (BEAKER) (test code = 414) 2.61 K/ L 1.18-3.74 MONOCYTES ABSOLUTE COUNT (BEAKER) (test code = 415) 0.45 K/ L 0. 24-0.36 H EOSINOPHILS ABSOLUTE COUNT (BEAKER) (test code = 416) 0.16 K/ L 0.04-0.36 BASOPHILS ABSOLUTE COUNT (BEAKER) (test code = 417) 0.08 K/ L 0. 01-0.08 IMMATURE GRANULOCYTES-RELATIVE PERCENT (BEAKER) (test code = 2801) 0 % 0-1 Fine Needle Aspirate by [id number] 10:45:00* Test Item Value Reference Range Interpretation Comments Case Report (test code = 104) Medical Cytology Report Case: [id number] Authorizing Provider: Teagan Walker MD Collected: 08/18/2019 1344 Ordering Location: [address] Received: 08/21/2019 0949 Service Pathologist: Joya Keating MD Specimen: Pancreas, Head ADDENDUM (test code = 3381) s2wvcRWxJCFupTEhNcLtTKHwCQDuw2qcYSBtqMJaKpAeQnRpMtOkLjhciXCgOEMuWeCit9rrd451jACs z6ofDAJnGrL2kNNtEMQzuBDqW908BLYrIJzuc6bau4VlDHYfnXCix9G6JFCEtprkzJl7pRtkX13dx9G9 ZzgxJ2csRVTkWIVxU8IwLK8xHNSiMik5UMM2TYW2NN NzSDFqD0ZdCO2tCUGpeIRkNJj3u5prsXqfRFPnRZU8j1fdFDufciQtLB6mwf6kjKl0a7avymXpPLDoSK KapGPOWZWeI0TwmSolEz5ugMd6kKbdHsxdQPW1Des9LA7wnc59wec0wBikFVDjzrtlQaU3SNuzBMXomf cgUMf9YEenIKElkRT4DSTfqHVkG2HvMDBqKI3hqap7 ZXR1DJqhTCXkImC0XKZxnGSgGHNtxBjqOJzov713LQE4XcUzAP3eK8Lkf9W4uY0plNSoBJYyzZEwWmAq ULLanq4zfSXiAWgdx0RnVNV6djG7gZAhkSKtNGKzPQ55Zwlxc0AiWuebGJI1UPQnbbUmg9Tsj3jhPrPn kdPfE0lxE1UxOZRdPKLyHZXhHaOcsjOwy3Puo1LtpV IhrJc2u4zsYQIxMDMbyRkdb9glJCG5NLPyZ9B3gZDxf1maBGvdXOYrgGL9fiA3FCNsuHPjK0VdpD5nWF BcEW4nskw2o0oxDWN4AWstSHDfFyC0diP2FACgaDRbITTjaMenFMtxs367EQZ6NnJyDPHpc0BzM1FflT rjP91ooZgyD76fJCIlyJwlnP4ojBkveX0uTrOgVqJp WLnebByofIBmvwgtPXajypBrSGglugewZVZxOFqmX9reGyTbJZWvlAzfXRuyp4IyNTAzBEQxAmZcAHWf TY2qdK0vCHSiRUz6aI6iAWqmjuB9ySJ8DUduxAefB8t5k6crK7skNKIabNHdAUGWRnFvFpA3TerhYGOv cGFyXGxpMlxyaTFcbHRycGFyXHFsXHBsYWluXGYwXG XoQpRcePjjrB2qIcAoHwAjIZkzFA9bXSYfK5vpxZKuDSSnWAAeV8kvFvVjbX7phMlxSPuweiCyAGHRMy ZPBMNCKTKXRPIOBE5XL0NzTo3YGXOYTCJXGR6VH8tPMaHxZ9tGI3FHWQ6ADUSOOCMDIMsDMRNPZ2VAPA 2QHZDTLOqWRVEDHEkyuHExMGOrYV6rEQ4MUIHCHoBe Wf5DXB2TSGhQSD0AFJpeWNFrhhp+CN3eKtEQQWSAJVXkT90VD7aGJQRTWNXKKTUJNYbRKdUNEMPKEOVA WaHCTUXRBMOiQ0OYE6aYG37LRZTKDVQNXEEGCADBIWnrNExKZFqdaISfSX7khyu+MZ3nhy1TSKMCNSmY BvweNVmAYZOYLNZGG4UWIiXXXy2GOC9xBCJetrjeCJ PoABAvoURux96kqYCnPTZgZAvti8o4gOYYxy8sSX1cK6sbHIklgjUyrzPfNS4kE2V6fz82w5wjVrltPT J9 DIAGNOSIS (test code = 3220) f8krkOWiBLVdx0rvNKWjsGPkFrUsXvVnLnTlIwwgqVVyRTrzcsIhICdap9PqQ8KwHtXiOBuydwFaSRXi HwnazdspFWYtZMW5jnXkGKGiDQtxYMQkMKhxXb1otCQbiCteDeUoEEEna8uyfiKQhpvwiBq9f0cgFZKm RqK6yDIfIZcwS7rhtnOmxCNhEHDeOIg8oB16GHLoiA 8faPYlTZbwpkXjNdI3KMekQTNaNoV4MVZwvFUvYACaN1paWGZqZZxyHCGaJGbklHCjDZE8nMvie4F3rJ QvxPOxdHssTpZfRuElAFCTn1SqKNr4dOklB3HeVKPuVqL8wAPvEWKcSMhuOHHwVZHxbbY1hB78NKlaqs M9yGFfx0Wdq10oe945eB5qdALtZOZ7BAZmMRRjsRAg AXBnVCJ6XYCkvIXkA5x5FbJglYBfF7F0NmJauKUhL9K6YoRsoRLyR9V6XuEkkYHxCSDpeFFlSk5kbHCx xHKibr7ive10SWO2z6OcsWyuYCC7RHO2CyUfZh9aoGXfDZOlSK3rAlYfxSWcOFZeaw10lNbkIUfsflHy uW3nJvBlHJRpqHFdVLVyQU1kcNUvNQEupR6yejciUM DhTlQdvcpzKSRkzAxnkyGfYl5fpZgjWFW9OFvcK7bgvM6kXrQ5FAuiN7ounV8zLQn9CYvgzWZ2POAhhP 3cUH8fmmbfx5nrXcOsZA4aitotu7xwQvPkCY9rcsy6q9yqMbNgRA6vjpnwa2chLyMqLCibFXItqsihFS Zmb3ZkuyhaQKQbg4LgB3ShhMfpY58cqEewB62qSQFm yYieyF1whHwexH1mLnVpRvXfIIxpoOmkrWDhndiaXBzbzkIqOQujlxusMZFnGUpgB4omQjRuJUIafKtk WQmeh0IfQRWsASScYmTwNFTUJ4LMLIBbHSfNZNZeVGOYSnIPLsDuGtesT0sBLyaNYLGTIUdKTULYE5HI JsSkCF7ZZLKRDVkaVxjRW2aoE6JfNYVKZXXLYTYxQt mdOHItHHItITZLNJuUEUclB9HEKWpELX2ZAkPSM3EwCT5EVWFDJyNmWHBVT8KXPVLOHrZYQVUNUU2EIE XiSYiJTnoAOKEPF7NHZMBNQBNPSIttKIBaOGJsTBNHLyANBVyOEINXOXXYQODfPXOBEz7PPWRTHG3MBZ VkHEppLNXdLCXoDCEBMSRaI52YIQJYDMgcCDP8p9me yPHmVDJzwHMbXBZzFIvheuEqAGWmUizpcynwRXPqVZR1bbInTNRhCJtdSITuTTdvTk9lvUTssNkgZeKb JBPxi0vdneXQiuilpTo2a1qiLJQpIxP6zPEyHBifE7kqgjHvqAUkMXDrNWd2gN47KOFjeE5gbSWtHZmh nbOsAgC1FSzyANMwYbB2FWOtqAJcWJDeE0lwGYQdJL gpWCPnRIskjVNeELV3sKisx0D9eGFldOCjtYouQsEeIcEjDnYKn5BfLQt1uXgeF9KxDDCpPgP4lPNsBP PwVQlyBUObJGBrliH1zB61MCbjwoD8nIIzl4Nkj11es728xG6twOCsENE0SSJyFBEisNHxVKFsXRA0FS UmlMGsG5izSAUsOI6sglohTThhHXdlPIWsvAC7QZLj dOUhT2GyONNzFUlpBGBiawq3SaOgRt9dyULfcCylYWhsl7yby6wqyFJpMzo7HSKuVtTyRwcfQKmpn8Dj a0qzUASspd7cBDY8oILfkLeba7E6hUSwRDWfxSTsNGVzPF4zeWFxARQmgF2kbphiOPBdMhYhgfybLUBc yDgnzjWiTk2qwCzzUUE0CMhkA1mrcA0xBtV9JHthR3 nqqY2aUQn6AHamJMQicVS8mzI3RMWwwXXjB3NttW2fCBVrQZ3coos8p4wzWHE4MYcgJZQdElJ9wcV2ZG RsnRAuRYQlhAriZPxzf985NKO2JtMgPSThj3SfI0EmsNvkJ91piAiyJ24qDTAtaBknzG6uuFjnfH5hIl HdFxMcKDmlgDruWQ6dKPBpI0xybMOpEAIkMJYpX7ho KzTpwH8lkGcpVZdknqXjDAWcEvv6DIPhxSSlAOEwUya1WUZwLBMxO23yalfhAWB3tI9ho5qnj7IbGXnh LXA2BVAgk71oBGvkttJ2LIwmNd9pHbKzQRQ9GOnqJXN4pF== COMMENT (test code = 3359) [file] xkxbXpRUUoIANoJD1okESmZDOqITqjzG2xPHCyRQZrhvy4zTHmKDNjZVN2xgKaXflxRKS0 CPT Code(s) (test code = 3357) t8xwuWGjRYWluPLfXoPiQQHoDVKdk9zqAKVvxLFzBsUxRsKeRlHeQaciaXLiENWcTsLjy6pyk417iLHf b6prOGPpIaH2vSWgWTWexVDxG309b6vkb7ffteKgzUV5FOJoPXR2IUmmypYgpxF8UTxviSAnYoZ3OWgm eaIzQVygigNtjdReIvr2NIAyA554ODH5cJgzs0dyMA H8XNKqRIPlYfKfOo6abEFfF315TNWeJMWTXYBtlZc7SSSrjcStivNahUKYz179O385w7rgCFJamgYxwJ oEdwocv9uzK419IMWhjTCcghGmUxUoEEIgqAIfaAH2WLQiIH2pfmbbCxDdJM4jeemiEnUtHN2bypm8Hc TlOA3kvogoCxZrVWclGQCfvqnsUQCcv1GfhzjvDE7j C9Dgi7D3mG3zgEFiVTKgpTNoTxBwAPChmw0fyETdHOolz0RhQAR1rrZ0uKXrzSJzPDUlVS15Hhwge9Va WbftHFO0OKXypiNgi9Lxi0vxPbJbxtMgT7sxQ3UpCJEyWBAfHOQaKzQtujMly5Rhj5ZpuLEtsDl8n0tn CXChOVFtbOctu7nkSNC1YTEiE1B8tFFgl8phURsrUE ZgzLV9rjdxIPeiYKWeggY6rfshAQxrVENjuGE1aijmOGgeEDYhKqB9hqvvOHiwPMXzVMU5VRnir262TK V4FWscWdmkIYioZBOerrBlgvPtjAvnHSDoICAzVBnyCOWbMFguAYYdSQOiDsGiuUufcBogoB4pIeMyWo KsNIatCO3lWTTpU8lcqTPvTJOgTAPtS2hiDwZjmS4ikVzbJUcntjMdXMp3FIthQOO3HFBtLJtjKPW1 CLINICAL DATA (test code = 3355) q2xgeBJeMEMsmQDbZwLgFFNvTBPlc7shBUYgiPDiTqMzMnZfPbHlUugnwOSfQZYgGyFrg1kvz317xKIm p7jdRAJwWsJ1vUPcQIVpdQTgF982ANAqXAadi6faq2WdMNOmxGUen0Y8TRYWfqzgaBc9hFryG96dq3D9 XlxcK8ymSLDdGCAaO6OtPL4kPNElOzj1UDM4SEM0NH WgMVFcL9DwTS8sQFDgbLOcAPt6l0vwoCopDMAfZGQ5i2xmPLfqysTjMW8kuz0auVb6e7sgwyJgXRBhQH AoeYFZLPPxT8GdtCghWk3hrBb0hSgwUwekQZS0Ryu0ZZ3slo72gcy0jDcjWXAhqmhkOwM1TCgaLXYjil tjSAu3EBvbGMGjoXxnNIeeMNIryeryUEjxDOFskBtq FFarDNFyNqwrWFwdZJWiRLQ9FVtux504TMH3PHpnr5jpm4bnsSSiUkv3RSWsTzJkJoftUNlbh7Rwm0zc NHPiwl9hZBT2lFEqwTanr1V7pMQvBYAafOFtoaLrAKRbZcY7BHfbHP9jrk24DRTqFEY8yt2pdRMobNio ipFiwVDqWIckV5UsGCVhi725UJArI7CcURQct8V6xl YrRiVzGIHznWC5lrR0JNJzHQe7qSWzbuF1yqDqtJNdI3ckrO66PmLlwCJtT5TmaS44VoOmrURfJ2EdgA 94QdOcwEZzM7FwxY76HkZslZMiDOLhyBPlUy5znRSzoRWof8MwsUJiESslC93ma994UMAoepLmC4xaiM JnwlfwbWSfqmjuGOrpaaV0NXEnQBThXUuaCYHnJQFt EjUahNOkAiMxPmSpfXlrpAhiHFzuItQaQGHfHIbyQ9agYuFnAbLzCBQoAk54DFmdVn18YAMfIYLlocUd N5ThSFRhbWHixlAjmaQ3zGThxGAeP8MgSASaEcTuCIJsBeEvs8XcwWd0EDKbScxgbEEexVVcnHBhW8S7 gtQ4PK1dovoobCirfuRiZB7gCJTuDAVjCHrvVFDknK DySBAvbKUruyEhtjfzaLVzIT0lHVmpMgBaaDYmDFEtPpQqpMV9hdYnwxNtMMipTJEyBA8tEWZhjOciwl Y1WVUebN6uzWW1UMLxjYKeCt6hpMWfKHBshr8= SPECIMEN SOURCE (test code = 3377) v7mevQWuIUQhdZCtJhFpHODqYMUrg3jgQGOxdZOwYzHuAmXcAzZjIxsxyUKoXTKeHiSpx0ujv754kXUd e4beHIWuWuX5jZZvTFGieXDmB612r9qlf2iymkLzvYF0PMJeWJV3YFdzniNnpdA7SVdhkWPrZtI8OZxf ycOeERfccdAqtrIoMah3XTHsC298IVL8nXjqt1eaJY R3TQKcYIGqIiGjQp5beXWdI231JLYzODNKMYHibEq1QQFqqtNdkxMloZFQi581Z388m7grAUSrxdGhmR kPbphct0yjB526JWVogHHwvwPlIoXdISNrhDPueCU5XWDoPC4znusgLiUjVW9cajojMxHzGK1iwbp2Zd TjZM8cerrkLzYeNEfnLKEzsivjGDFoi3WqicasCT1l O1Bxg7P0yK2zlKAtZPIcvKOmHnWzUUZqng5bzGOaECgra3QyVZX8axO5mAFvqXBdKLOuLE20Qsfsw2Uz BxioWDB5NPKqdxFvm5Qbc3axEiXrcdFlZ6cbN8GxLXItHAXzSDOlAaGufgBzu4Lpe7OhoVEdtBo4j7jp GAZhAORxmHyqu8zfNDD3HOHmF4L1zDOkd1gmSKlzGY UmvAD4gckaHQpcPZUtuiP1rzoqSTjvEPYheBT0qxwjNIlgHKAaYdE3bcgpKJnqBAOlEPL8TYndy053FO T1MXptOhgiGKqcXDNlgqCsnwBnbHfxGKApKWMaKKmaTLQzWMpqOPHeLSHxAxXxrAnwaNcmkS7bPdVaRw WpXQdeCQ2jOIFmA9igvXTxHGReEZCuY9irQhDicE6n kDeqKGtzbdYoNVQHFqMZGEXTVMYVDHJAPQ3UK4OsNu5KCJTard5= GROSS DESCRIPTION (test code = 3366) z9kpjAFrWPWfiZYnKeTxTXNhATOth7nzDEPgrZHfWyXoRjMxEsJjEcxloNCaNGKxDiSyu8usy849yZSi r6bdRQNdWvR2bRKpPHQbqQNoU177POSyWBluy3zxg3RuEHIemKQdq0C5SQFXkhjffYf6nKijG82tr2E4 MuqhY2cmYZRoGNXrQ9DqSU7cZUXlMfr2ADR2AZN0BO ArODGyR7FyKD7nKBZnfCEsIUn8x2xyeOscCKOwVIW7x3geMUnpowMzVS5htq6nwCq0e0hskjRsQLQiBV OnaACNWVXfB2XuwPvgOt6qeYg6vWxyCjhlIKD5Pny4ML4hsx56ykb2eMrpIHVqtlovBdQ8LSfpDPHdhc zeSYm4BFzcGWBlqMtjOMzoHSSmctecALstJNRijQit FQqwXYPxJvzeDNvsMOMqTDD8WVvfp129JGG1CFvrj4ubp1eifKYsKai9NIVlFqDtSahuBScop3Wjd5rv VCBoob8nGDQ7pQXetQigt6O1tQQmAEMvcMWiasFsDZZpZaV1KZnaKD9mcc14QYHcBKR5io2gjPTseImy guLetVRhKVdcI0UqVIAxg873DFYfJ4XqUSCif8T7qj HjObXlCKHpoPS0muH8UVQnFDr7iJIjjfV2xoJvrRJnO2afqF73AsJepGDeA6KbqN81YvTxxGJiK6PssY 99SvNfpHJcT6BpbY91QhFvrEXqRGFcsOUyFe7zsXGwzTQrv3ErjBEvNKvtF50gg000CZHrhaQlJ9drrS NonqdiuXXtgnhlBBaboaR1TIVuBAOuRMtfIMRoASAf XbHaxGPjDpFgBcAgyBdplGpdOCteXjEhAJIzTQxcB7rzXpMzFpYeUqLoQNHveGDqcW5xY2n5k0ZgX2ij tfQnIeU9YHD3yW9cuKyjzliaX1QkySYbmL1pp0toKEDuL92nkTRdgTQrCiQxUbM8GaVxaVFsBAAjD5Uw dmVkOiAwMjEwMjBccGFyfQ== MICROSCOPIC DESCRIPTION (test code = 3371) v3rkuLLqBVSjcCAtSuOyVZUjTRCft6iaALKsgMUaRoMeZaZyTtScGloqyLGaZVLzFlPmo9gpp358zJZn z0qnWCNwDfX6sTFkCAQaqEPvG454w0gjg2fpxiAsfON6UHMyEFL4XAmtcmOycvL1IVvpsYLqViB1JCvg cxVbHTdwqwOmvuQhNxh4HUIbA356YYO0bNnby7wmBE K8CMFePOVxAyMoJg0myIOxY513RFDjDOOLBWVjaMy7KXYjneBeoaXllMZBj349H152s9onZBBnviScfA sBmzwem5pyV351IQAdzBXmoaCqJyNnNEOyiVIowYC2OZUuNT3wzjpyZqGbMI2gkxxzKqEiMG7xwfe4Mn VyWH7dxgrtTsCtBCzbGKNvzsccSQEjx2BkyoxfCO6r S1Dbu3V1tA9jfZEwVOHcaKNpWeNhDWHrgf4elFKeOEsun6DnUOS5sfT7bUBdnGMtGSLpYS79Gmveb8Tg LahySLI8IFCdawXvw5Ato1skLqMivtKgJ2zcC6MzROKaOHEaZVDrBdFwrjNbi1Pgr8EkkEKxhNo8h3fc MRWfXCKmkVwvi7zqHKH3VTNiP0N2gTRpv3jkDBuyHB FxnLY6mchpDVwxOWXjlqK1txheWSgfGBGsqLE2nknfIPorEEQxCxS7mvfpCKttFRQiFRQ7QQaou839RT K9JAfkMwarJOqgGRYrmnNywoPejLtvUTFlEINwGPxsTLOwCHroPIEsYOChPtTfjEdekQuhnN1xTfAkQb KrOVqoCG7vIXIoG8cnzIVvJSUwTMHxS7shCsIrmM4ohSpaXCabqxDnQASkdvTsuf3zMC6ccEBjtT== Gross assessment was performed at (test code = 2777) [facility], Department of Pathology, [address] [place], [place] [address], [place] [address], Technical component was performed at (test code = 2778 ) [facility], Department of Pathology, [address] [place] [address], Professional component was performed at (test code = 2 779) [facility], Department of Pathology, [address] [place] [address], [facility] BY [id number] 10:45:00Medical Cytology Report Case: [id number] Authorizing Provider: Teagan Walker MD Collected: 08/18/2019 1344 Ordering Location: [address] Received: 08/21/2019 0949 Service Pathologist: Joya Keating MD Specimen: Pancreas, Head Addendum, additional review with cytologic sample [id number].PANCREAS, HEAD MASS FNA BY CLINICIAN (CYTOSPINS AND CELL BLOCK OF ASPIRATE): - POSITIVE FOR MALIGANCY -FEATURES CONSISTENT WITH INVASIVE PANCREATIC CARCINOMA, LARGE DUCTAL TYPE, OR BILIARY TYPE ADENOCARCINOMA. Additional review with Dr. Mihir Johnson and Jason Keating.Addendum electronically signed by Joya Keating MD on 09/26/2019 at 10:45 AMPANCREAS, HEAD MASS FNA BY CLINICIAN (CYTOSPINS AND CELL BLOCK OF ASPIRATE): - HIGHLY SUSPICIOUS FOR INVASIVE PANCREATIC CARCINOMA, LARGE DUCTAL TYPE, OR BILIARY TYPE ADENOCARCINOMA. SEE COMMENT Signing Pathologist Direct Phone Line: [phone] signed by Joya Keating MD on 08/22/2019 at 4:50 PMThe cytologic features of both the cytospin preparations and the cell block operations show strips of [...] or biliary, adenocarcinoma, which have identical cytologic features.Portions of this tumor may represent high-grade intraductal tumor /PAIN. Clinical and endosc opic/radiologic correlation is needed.Two other [facility] pathologists also favor a diagnosis of positive for malignancy this case (YUNIER, NS).Additional levels on th ree more slides in this case do not reveal more definitive features.48961, 91309 (2.9 x 3.7 cm) irregular mass in the pancreatic head; localized biliary strictur e; many thirds of the main bile duct and right and left hepatic ducts are dilate d. A sphincterotomy was performedPANCREAS, HEAD MASS FNA25 mls in cytorich red; 4 cytospins, cell blockCollected: [id number]: [id number].[facility], Department of Pathology, [address] [place] [phone], [facility] of [facility], [address] [place] [address], [facility], [facility] of [facility], [address] [place] [address], Tel [phone] 10:43:00* Test Item Value Reference Range Interpretation Comments Case Report (test code = 104) Medical Cytology Report Case: [id number] Authorizing Provider: Shireen Evans MD Collected: 09/16/2019 1218 Ordering Location: [address] Received: 09/18/2019 1334 Service Pathologist: Joya Keating MD Specimen: Pleural, Right DIAGNOSIS (test code = 3220) l7ttrIMoWHGpy4kzYFEliOAsIxJkIrFnEwEwKnsawLSjSVcapvEwOKxnc9TeO9CbLkRxUHofazXgTPTs MpqdpixzRDCmCYW2zmKdFXFaCWfeIJEiZMrkRk5ndDAhhEyyXoIqHXXum5kbguGJvxghqUt5x2edMUFd XtD5nHWjSKbrL4xbrfOcoHKnASMlCCd3qY20WQPrdD 1srUVrNHewfwXmXkV3RQyjAWIpAbA6DHFvjBWrRTVnW1hiPXAkYJotPMBwBGtahAZqNQP0yVoan2M6sF SljLKaiBcqNxNjCcQySTNDi8FpNTf6mDpnH3UbPIIdFpD2nEQhPUKkGGukMTOmRUDcmdO2vA71RGsnws E1tMEbb9Fql50uy882lB8fjLYhYZU1PDWjTFGjtUBj POToPPJ9ATZpbYWwD4v1ChYpdKYsG5Z0PmClcBIyO5B9RuEmtKKcB9E6MlYivCYwDOJriXOyGp1yjLIq yGHovh1fxx68NWS6p9TyoVvuBKA9OQW3EqBaVm7omOOiNVTzHR3oJhIpaRIrAQAyyg58rUfwQOuwvsLm hD1uOfYaIOCidKQrZRCxIF1ekWOdHATndR8wrgmtLQ OlScKzjqndMSLxfHlgxtBuDe0ngXjnPNI5QEayE6hkvE8eCiS0KEjyE3suqJ8cCVa6TBmsyVU3TQQpjY 9cAG1kilutt9msCbYiQA1twlala8nuMyVnGQ1bfsx1z8rdWqHhPL0oerosu6khYpSoSWhaLLOpvpvhFR Mrk4NuachuXPVms4TpB4OzhHwjT07rvPqfJ36aQWFm rIgliG6udOwhvK3tEkRyTcOuGGqcvQlncWRmtwnqXTqywpSdEPerowumOCJtTCyfK1weRqScEAZvcHfq QUtll1VpWYZeIJNgVaPxXopWIXCdKAtGXZEWNFFPRPXCXFHeL3aOL4LXIB5ZVGZXJBKSGGpNSOQSN2XN PVkpgQcdWCUkLMDxSAOHS8CYW3gGOFQoKc3WMC7SIA oWBfDBJ1nxuJSwBMDsQU5fKmRVGQMWMJAyG00AV0tEORPDUDLWGYJAW5RKM3iWI5ARPrCmS9ErJSjKDc BNXYXXRK9AH6OzWESRF4MuHKbGJ46OS0mSYJ3WINxaMMRuUMEsMEQVQKBTF0SEDzGSEm1VCRNhX1ZqDE uFZAZUClVJLWIQJDrtS2LBFZWNOX2INyArJKUyxbdt [file] ilifaqOvXIDONsb5caR1htfNQSuUMiA8UhIOrfvyEzNDunSLclFUL7NFI6Hm82TtT7ZrgnEHO4mA== COMMENT (test code = 3359) i9twiUVcFORpjSYyLbAeFEAvKHVui9mrZZFhfPWcCrCzStDhWpVfKcrqlANxDJDzFvGmd6zji596fKGg w6lcZOAtFpJ6qDQjNICtoFEtN549DMSzJUqfn0amc8NbOEXfyYHof2Q2SPYDssqgoHd8vLkbT74vt0K2 MdiiV5zmYQTkGJLeJ8DrBJ1zMLCdMfv3IKW9MPG5BB NkQIGoP9BjDA6kDQGriHIqGLn2x1pegOsfCUVgDVP7z7ssEDjrwpYxOT2rxt5ifEq0y2goscFpWHTiWI FmySUVIMVwA7TuzDkdXx1wlTr7lEquPfugENF6Fsw1CY1jur12jgd8yVkcCBHibxmgLpM9IQrnKYVyrp lnHGm0XXeuQFMyeGvfWXllOVPuojxhTGcdYCDdjFqi ECzuLSYhIcyaWRbwKFCyDLB0CSori925ZUZ7YRixf1mag7pkgIRxXer0EHMaYrFrOwaoIYxsa3Gwl7ax ZYHlim6dDNO8nOVsjMbis1T2fGUjJXBdmJWlelEcJVKmTgT0TWsuUF1ezg15VUHlBXT4yw1fsNJieXro auVtmQNkLKvrW3HdNPEnw042HNZkX6ZpBVApi3Q6id DrSdJzMUZbhTX3jyV7DPPpSCv9xMRmvkR0siGyfHSeA4gxhQ99ToCgfQQjO7NsjH85IqLzpJIbV0XdoR 11JmOfbVWbI6ExwB98UnJmwDAbDLZzqMXgTa7drORsnWDyd0VnvRClDFenI32al928WSTulgOnI5yltA DbikzuqYStshupEUnbauJ4JWLaAMVxHSmyXVKoWPWg HrZqhFVeYmRvGaPoyEjjsPdvQDzpApFbQXJkOMejY9qrXoNrQkOcTJKCIDO5UKWykyIbXAE2vPsmHWmi m9gjYIRqDABrTEVga2WgOXXplbRuzUvzUBO3oU3hnVuwWKByiCMccy6iEScyrIwhXXZxdXc5NYAlqBgt gWCsrGLqgyGws3SctEjtsB21gsDjl4QaoLIcmGdsCL 4jjEqfTE9iSMCkebApz5TbabVgq9d1zNW1mVrjGJQvlMuontKgbyNfzKA5u5N8CN6jLLYhmiBpMBR1qV RfSUVvbh9lHHMbtY9pgVSjQRPpDQ07JYjkuoQ8mHD0QKFbAJungI1oy73sJr6cCl3sSXKzUZD2VYHjgy 4wZ0X0ij74z9hjSQQiLTSEeIJwoHIwYIYselAvHTFe vDieEWZxHZQoy8RkrQx0JSBwf2XuyBEpaVlfGO4ymILqveC6XMzfNjWmd2FcCPCvCH8tGGLgykJyz3P1 WKVGcSTmjOT3xlIpySZodP01dk6kxXB6q1StKE4sL1YcTFA0AJecvoTnouYjns27HNT4P5Fbd6TduQpq GID0FSW5tqYvebM2LzTkC2zypzDrA5IxtQTjVETxpH W0YJTgJXdwPNJ1B7ynk0CeQCBjePGfq12niNReCQ3chLQpUGgoTMUfaG3uY5PzkQomlP4pySNrbVBoYc xwYXJccGFyXHBhcn0= CPT Code(s) (test code = 3357) u2thnVSdPIUbbLBmEpSkLRJhFOWmu7wmZAUhsRElGdChXgJaPdEjVljxeDUfJAAtFqGjl9uff073hDYy o3zoUXAkVtV6xYLrKAAlkJRnJ977CHYrYOcvi4wlb7GvQWSxqVTgk0D4VGNHipyivXm2yIieB13pg2C6 FvizP9peWXOvQKEjF9IxDY2hMEVbGmb1FUP5FBU4JF OnFDJbI0JnTY1yOUAhxOTrEKf4r8rsaZmlVKGxFQV4y0ieNVoybeWbPN7taq7qbXf1d7izfqUzSIZmJF BlpVOVMKFuB7MewGieHr3pfIy2kQeiGjrcXZP0Mvg7MH9uuu90jpf6uVzrPMLdvkacPbA6TWgnQTLocq xwGLb4KOaqRBTxvCehAOjsAXWxhxpqOCwsACQrxBni VKywPBJdPnqnLKatKPBeFZO8XPffd561NHG3CWcsr6tea3edyLZpXza6PWPjIhUaSaqhATetd3Izm7za YFXzov5sEZD4wRXazJuxc1Y9eJHfOAJcsCSfskKyAIXfTpB5BLeeTL4fky42SOTkFBV7qa2gmXNhwOwg kpGeyVYnJHztX7ErVHRtm583YKAiS6FiTFNah2W2yt CoOwZqXRPqjJJ8jaA5KYKcWAn0rSPyuyI9nzQbbOCiK4qxgP24WjTwmQIgT6GzxE11DlBogOZdW8PebJ 45XiTxaQMuX0OyuS23NuAuhSSwTQXcxQNpFx8fpNRwgWTyb3MwqOEmLLbjX57es790YVCchjQgT2exkN CgnnshtKLjrzipRPssumO1ETGqAJCyYBxeYGXfHETu QrNrdZVsAwJeJiPldKlyrJlwPLzlYeXqONYhDZcwC0sdWqEsOrNvIWP4PMEaQJpwGJslDLUbuDDoiK== CLINICAL DATA (test code = 3355) c7qflVGtNJZsrGWpKtLoJUGnZLVqy0juEVIxaXIeFdEvYfKyShIgFrmzbPSuKMRrPcIti1erd735zXRy d5vwGTQvSvM7rZIfLZAyjGZpJ512EGImGWigd4btx9AbFAPwzDSpu8P0CSPDcwdsqFn4hJnqU47wg4S3 TywgM0ckAHRzSLBdN5SpGU5xLVPlChu5CJS8LXG0XX AyVIXhS7FkGG8kFXSymVLqRQo4e9faeUhcOQIvVBR3d9vrGAbsatVwBR3qmo6enFa1f5mpmsYuZXNmRY GmcZCHPIDiH9XqxWwqSh2hsBt2vArhYtskXNY1Kba9EF6tws90qjg4hAjaHCFkluknJmE7PVqvQVYetx gfYFu8ZRpqJYXrqXpwIPqtQYAdahxaUHnfMBTnlJoc TVyhUFGvKqddOSlnPGCcKPM0LGxmp719EQT9BAmll3jch3mcjSKfGuo1WVStHnUlJxefYOpah6Fbb1qe ZGMrou3bKDV0cMJodAaea0Z7eGBhTIExrNXlqdAoYZHaViC1ZIlrLR6des33YTAsPAY8hh1hcJUrlFob frCglLAvVWsbT0RiBRSae913ZEBoW9NqRGGcs8J6ef RrVqHqTSAzeAE1eoG2KCIiLLx6uDYiwwO5duTaeULaU6hyvJ52DcVqfGVvA5XntX56SjTgzTBqZ4SctI 64HwWkvJGjO5SgkW59CbNknBWrETBkoMViFz9pxVPnaPQbk6CptCBuRKkmJ49gr385KWPpxsQoP5ubhD JtqwuvqNStbfgnFWmecmA6PZCrWZXeIBocOTIxTYTj RuBisNTaVnWwKtZjlYcalBpzRElyAzCoXSYwUOgfA6kwIdEkGuGcYKMHcRdvmARqbWA5fbIqGLXnBwAh dF7uHXNuKMOezfRaMZcxI64gz2RaDRcebYplhSDiR4UlLPBdCuNkIY0qRGVkASCuYLPCIzUrJXV1HQiq YXJ9 SPECIMEN SOURCE (test code = 3377) m5emqQNwNEWyvDDeBpRlERTyKKHxz4tdZHDeiBOuFyKqFkXiIfDxPninvBFeUJQdBjUkl4rqm637gQWj z5srOKTmZmF9mRUkMQFpbVMfB822e9ajn6mcpsRqdVZ0FXQbQOL7HUcsapFckzE0NXzhnJHaAeS6QTmp ewVcWQzpxxDnixCtZtv1CFOuF437STO7rTylt2uzXN W5TPUlOYAhPkFkPt1wqOHpW477FLLxGJXNEIPdxRg1OBGnbtAphqZarOGBy408B053s2xsZWNwacQtmZ oAcbnjr1gwC838IMFccRSdatTvCrLiHNBmbQRruXH0WFSrWN4acakkSzNlOP5uhikfZgZlJL4gqjw2Dt AiJF2wbzksLwZhVPcrYAPyljgkHVKje3CugsfnUK3n U5Bzj4V6aY4dgXKnKTNqaJLxVeLlGNSgzr2qnDFyVRava1FvPGY8iqF9hZVxgVUrLGLzCO59Xraez5Xy ZjhvHKR4ABHjpsYvt2Kts3rfEsJiitOhK0tdL5IjIIWyMHEgSQMrAnSzqqDyc2Ora6NlmICloQd1q9fx APBoHZWkcXbky7lcWWU2MLNyI6M2jMGgl5xlBMmuXM DzlEY4psicVXhlTQBeczS0iodlIRzcXJQbiRT3ithaJRbrHKEdAhG5cyyuMAtdYNWnGWJ8SDluj440XV G8VGryQranARadIJWrsjAhsdKwzXudTSDoNRHlCRfzOEIaIKjeTQWiWEEpFhYbqLqlfFdkhC8fWeXcBd ZdENkoPA0nNPBlZ1ulfSFuTSXeYTHzY1fnIuNheD9n bRymHQtlkcPkSDIWL4aOLDATUGIPLVxtTunXLLCfQJCclv5= GROSS DESCRIPTION (test code = 3366) t0tguYNxVLQyyRNcSqTiEPRzRRKlv2rpVYRnkMIwQrUaLrZmVsMuIsymeUJsAQMvIkQxs1skm345iEIx w3kzXLNtDiR8zKCmGWAnvLZyN260KZWqRZaks1hwq3UzMDKbnRCvt0F3AHOChidtlHu0wEohH68jx8F1 RvbgG2iaZHDkMZUkF7LbGC9wZVUqFla4EVS4XBQ9PQ RxTBKiF3DqPI0mKAMjoHVjBNg7c3mvhOlxVWJoOOG3a3xqLBugbhUnHP2dgc7nzSx1b2ldjzUuWOHvDC ZdcZGSDBKcJ1MjkCwhOo2uhNg5vGftTyuiDCR5Iyk8YM5qsg51qaw2cYepXOTueuuwTsA6NCpyLQPcyy zxVLh4UIwzXLVeyRwkKDueLFQxtegoEKhhGHHttSjf TAwyZBNsJxcsEFbwCJJqTLI9UVeew652YIL1YGnbp4koc7zptPTiNrh0GWInHgUmUrltLFprj8Pqa1xs NUHlif9fDOW3tFBtjUbyq2Y8rQPoRDJmuMCbgpVuBEHsRqD5MFikFQ6ien91TLJbHXP7nc4xnUGnuUgm ibLreJXpQLyeB8AxLEUfa803SUZqT1UjQPQde0A0ot FfUlDaQWIlwNT1tcU5RGPiVJp1oKBxwlR2exLvfWScU9jmkN04GjQobGJdQ6YlnV94IbLhmOWyK2DocJ 69NmUbrRNzS0LetM93TxMlzDKeEIIzkJQaJn2ggOWpwWCyr7UifHRaRHutB30au665ISTlzwQcY1ekbN VcrweltHZbuwrrFCpohrU4FGJtRBKcRJpwDMSwYJDf JaTnxLTbAvRzDkKwkDejqXmgTLbaGlNxNLEgEPirE6nnEtFvDzKvWwV8GZMmxJGfSB5zBEAoTri0jTA6 MOCuE8x8r4EufN3gLIPrQYhhAIDre1AxRAHqhoFNq8jeBXW2ARI2DBOnUYolJIlmETAoIdYjCPu5FNQ4 IDAzMDkyMFxwYXJ9 STATEMENT OF ADEQUACY (test code = 2757) Satisfactory SPECIAL STUDIES (test code = 3376) [file] Gross assessment was performed at (test code = 2777) [facility], Department of Pathology, [address] [place] [address], Technical component was performed at (test code = 2778 ) [facility], Department of Pathology, [address] [place] [address], Professional component was performed at (test code = 2 779) [facility], Department of Pathology, [address] [place] [address], [facility] 10:43:00Medical Cytology Report Case: [id number] Authorizing Provider: Shireen Evans MD Collected: 09/16/2019 1218 Ordering Location: [address]: 09/18/2019 2559 Service Pathologist: Joya Keating MD Specimen: Pleural, Right RIGHT PLEURAL FLUID (CYTOSPINS AND CELL BLOCK): - SUSPICIOUS FOR MALIGNANCY - FEATURES CONSISTENT WITH/SUGGESTIVE OF THIS PATIEN T'S PRIOR DIAGNOSIS OF ADENOCARCINOMA OF THE PANCREAS ((SEE COMMENT)This c ase and the former pancreas case are discussed with Dr. Shireen Evans on 09/26/19 20am.Additional sample is requested, for more definitive diagnosis. Signing Pathologist Direct Phone Line: [phone] signed by Joya Keating MD on 09/26/2019 at 10:43 AMVery rare atypical slides are noted in the cytospin slides. They're quite atypical and suspicious for malignancy, and cons istent with this patient's history of pancreatic adenocarcinoma ([id number],reviewe d again on 09/26/[address] Keating and Alex, and designated positive for malignancy as well. (see amended report) Attempts at immunohistochemical stains are not successful, due to insufficient cellular material. Suggest additional sa mples if clinically indicated.24263, 70947Glhta pleural effusion, recent diagnos ed with pancreatic cancer (see C20-457)RIGHT PLEURAL FLUID 60 mls deonte fluid; 4 cytospins, cell blockCollected: [id number]: [id number] interpret ation of this case included the use of immunohistochemistry or special stains.Co ntrol Slides Examined: In-house known positive controls were evaluated along wi th the test tissue. These control slides run alongside of the patients sample s how appropriate staining. Internal positive and negative controls when available are evaluated Immunohistochemistry technical testing was performed at [facility], Pathology Laboratory where it was developed and its per formance characteristics were determined. It has not been cleared or approved by the U.S. Food and Drug Administration. The FDA has determined that such clearan ce or approval is not necessary. The test is used for clinical purposes. It shou ld not be regarded as investigational or for research. This laboratory is certif ied under the Clinical Laboratory Improvement Amendments of 1988 (CLIA-88) as qu alified to perform high complexity clinical laboratory testing.[facility], Department of Pathology, [address] [place] [address], [place] [address] , [facility], [address] [place] [address], [facility], Department of Pathology, [address] [place] [address], Tel Lactate Dehydrogenase (LD), Pleural [id number] 19:32:00* Test Item Value Reference Range Interpretation Comments Lactate Dehydrogenase (LD), Pleural Fluid (test code = 75220 -1) 99 U/L See Note: Reference Range:TRANSUDATE: <113EXUDATE: >113SAMPLE SLIGHTLY ICTERIC. FATIMAH (test code = FATIMAH) Performing Lab [facility] [address] [place] [address] Louie Ortiz MD, PhD, YANELY [facility] CenterBody fluid culture + gram [id number] 11:42:00 * Test Item Value Reference Range Interpretation Comments Result (test code = 6463-4) No growth Gram Stain Result (test code = 1123) No organisms seen [facility] CenterBODY FLUID CULTURE + GRAM [id number] 11:42:00 * Test Item Value Reference Range Interpretation Comments CULTURE (BEAKER) (test code = 1095) No growth GRAM STAIN RESULT (BEAKER) (test code = 1123) <1+ White blood cells seen GRAM STAIN RESULT (BEAKER) (test code = 17559) No organisms seen Protein, Total, Pleural [id number] 12:11:00* Test Item Value Reference Range Interpretation Comments PROTEIN, TOTAL, PLEURAL FLUID (test code = 2882-9) 2.1 [facility] CenterPOCT-GLU[facility]SE [id number] 13:18:00* Test Item Value Reference Range Interpretation Comments POC-GLUCOSE METER (BEAKER) (test code = 1538) 220 mg/dL 70-110 H : TESTED AT [address], [address]: Assembler Hydraulic Backhoe/Student Career Development Specialist ID = [id number] for PB GREENWOOD POCT-GLUCOSE [id number] 09:11:00* Test Item Value Reference Range Interpretation Comments POC-GLUCOSE METER (BEAKER) (test code = 1538) 133 mg/dL 70-110 H : TESTED AT [facility] [address] [place], [address]: Assembler Hydraulic Backhoe/Student Career Development Specialist ID = [id number] for PB GREENWOOD CBC W/PLT COUNT & AUTO [id number] 07:47:00* Test Item Value Reference Range Interpretation Comments WHITE BLOOD CELL COUNT (BEAKER) (test code = 775) 8.0 K/ L 3.5- 10.5 RED BLOOD CELL COUNT (BEAKER) (test code = 761) 3.26 M/ L 3.93-5 .22 L HEMOGLOBIN (BEAKER) (test code = 410) 10.5 GM/DL 11.2-15.7 L HEMATOCRIT (BEAKER) (test code = 411) 34.0 % 34.1-44.9 L MEAN CORPUSCULAR VOLUME (BEAKER) (test code = 753) 104.3 fL 79. 4-94.8 H MEAN CORPUSCULAR HEMOGLOBIN (BEAKER) (test code = 751) 32.2 pg 25.6-32.2 MEAN CORPUSCULAR HEMOGLOBIN CONC (BEAKER) (test code = 752) 30.9 GM/DL 32.2-35.5 L RED CELL DISTRIBUTION WIDTH (BEAKER) (test code = 412) 16.3 % 11.7-14.4 H PLATELET COUNT (BEAKER) (test code = 756) 162 K/CU MM 150-450 MEAN PLATELET VOLUME (BEAKER) (test code = 754) 11.8 fL 9.4-12 .3 NUCLEATED RED BLOOD CELLS (BEAKER) (test code = 413) 0 /100 WBC 0 -0 NEUTROPHILS RELATIVE PERCENT (BEAKER) (test code = 429) 65 % LYMPHOCYTES RELATIVE PERCENT (BEAKER) (test code = 430) 27 % MONOCYTES RELATIVE PERCENT (BEAKER) (test code = 431) 5 % EOSINOPHILS RELATIVE PERCENT (BEAKER) (test code = 432) 1 % BASOPHILS RELATIVE PERCENT (BEAKER) (test code = 437) 1 % NEUTROPHILS ABSOLUTE COUNT (BEAKER) (test code = 670) 5.20 K/ L 1.56-6.13 LYMPHOCYTES ABSOLUTE COUNT (BEAKER) (test code = 414) 2.18 K/ L 1.18-3.74 MONOCYTES ABSOLUTE COUNT (BEAKER) (test code = 415) 0.38 K/ L 0. 24-0.36 H EOSINOPHILS ABSOLUTE COUNT (BEAKER) (test code = 416) 0.10 K/ L 0.04-0.36 BASOPHILS ABSOLUTE COUNT (BEAKER) (test code = 417) 0.06 K/ L 0. 01-0.08 IMMATURE GRANULOCYTES-RELATIVE PERCENT (BEAKER) (test code = 2801) 1 % 0-1 Comprehensive metabolic [id number] 07:12:00* Test Item Value Reference Range Interpretation Comments Protein, Total (test code = 2885-2) 6.0 6.0- 8.3 gm/dL Albumin (test code = 47667-1) 2.9 g/dL 3.5-5 L Alkaline Phosphatase (test code = 6768-6) 402 U/L 40-150 H Total Bilirubin (test code = 1975-2) 4.6 mg/dL 0.2-1.2 H Sodium (test code = 2951-2) 139 meq/L 136-145 Potassium (test code = 2823-3) 3.8 meq/L 3.5-5.1 Chloride (test code = 2075-0) 112 meq/L 98-107 H CO2 (test code = 2028-9) 19 meq/L 22-29 L BUN (test code = 3094-0) 14 mg/dL 7-21 Creatinine (test code = 2160-0) 0.81 mg/dL 0.57-1.25 Glucose (test code = 2345-7) 121 mg/dL 70-105 H Calcium (test code = 07411-9) 8.3 mg/dL 8.4-10.2 L AST (test code = 1920-8) 68 U/L 5-34 H ALT (test code = 1742-6) 27 U/L 6-55 EGFR (test code = 21400-8) 69 mL/min/1.73 sq m ESTIMATED GFR IS NOT ACCURATE CREATININE CLEARANCE IN PREDICTING GLOMERULAR FILTRATION RATE. ESTIMATED GFR IS NOT APPLICABLE FOR DIALYSIS PATIENTS. FATIMAH (test code = FATIMAH) Assembler Hydraulic Backhoe ID - PIAYA LSpecimen moderately icte joel Lab Interpretation (test code = 01099-4) Abnormal [facility] [id number] 07:12:00* Test Item Value Reference Range Interpretation Comments TOTAL PROTEIN (BEAKER) (test code = 770) 6.0 gm/dL 6.0-8.3 ALBUMIN (BEAKER) (test code = 1145) 2.9 g/dL 3.5-5.0 L ALKALINE PHOSPHATASE (BEAKER) (test code = 346) 402 U/L 40-150 H BILIRUBIN TOTAL (BEAKER) (test code = 377) 4.6 mg/dL 0.2-1.2 H SODIUM (BEAKER) (test code = 381) 139 meq/L 136-145 POTASSIUM (BEAKER) (test code = 379) 3.8 meq/L 3.5-5.1 CHLORIDE (BEAKER) (test code = 382) 112 meq/L 98-107 H CO2 (BEAKER) (test code = 355) 19 meq/L 22-29 L BLOOD UREA NITROGEN (BEAKER) (test code = 354) 14 mg/dL 7-21 CREATININE (BEAKER) (test code = 358) 0.81 mg/dL 0.57-1.25 GLUCOSE RANDOM (BEAKER) (test code = 652) 121 mg/dL 70-105 H CALCIUM (BEAKER) (test code = 697) 8.3 mg/dL 8.4-10.2 L AST (SGOT) (BEAKER) (test code = 353) 68 U/L 5-34 H ALT (SGPT) (BEAKER) (test code = 347) 27 U/L 6-55 EGFR (BEAKER) (test code = 1092) 69 mL/min/1.73 sq m ESTIMATED GFR IS NOT ACCURATE CREATININE CLEARANCE IN PREDICTING GLOMERULAR FILTRATION RATE. ESTIMATED GFR IS NOT APPLICABLE FOR DIALYSIS PATIENTS. Assembler Hydraulic Backhoe ID - MARVINAYA Jocelyn roberts ictericPOCT-GLUCOSE [id number] 22:29:00* Test Item Value Reference Range Interpretation Comments POC-GLUCOSE METER (BEAKER) (test code = 1538) 179 mg/dL 70-110 H : TESTED AT [facility] [address] [facility], [address]: Assembler Hydraulic Backhoe/Student Career Development Specialist ID = [id number] for Lorena Lopes POCT-GLUCOSE [id number] 18:26:00* Test Item Value Reference Range Interpretation Comments POC-GLUCOSE METER (BEAKER) (test code = 1538) 233 mg/dL 70-110 H : Notified RN/MD: TESTED AT [facility] [address] [place], [address]: Assembler Hydraulic Backhoe/Student Career Development Specialist ID = [id number] for PB GREENWOOD Body fluid cell count with [id number] 14:56:00* Test Item Value Reference Range Interpretation Comments Appearance (test code = 9335-1) Slightly Hazy Clear A Color (test code = 6824-7) Yellow Colorless, Straw A RBCs (test code = 56902-4) 109 <=1 /cu mm H Adjusted WBC Count (test code = 03881-8) 125 <=5 /cu mm H Lining Cells (test code = 04719-7) 1 <=1 /cu mm % Segs (test code = 55392-1) 1 % % Lymphs (test code = 64654-7) 84 % % Monos (test code = 90385-1) 14 % % Eos (test code = 77384-0) 1 % % Baso (test code = 76865-8) 0 % Container Body Fluid (test code = 2873) Sterile Vial Lab Interpretation (test code = 04371-9) Abnormal [facility] WITH [id number] 14:56:00* Test Item Value Reference Range Interpretation Comments APPEARANCE FLUID (BEAKER) (test code = 510) Slightly Hazy Clear A COLOR FLUID (BEAKER) (test code = 511) Yellow Colorless, Stra w A RBC FLUID (BEAKER) (test code = 513) 109 /cu mm <=1 H ADJUSTED WBC FLUID (BEAKER) (test code = 1691) 125 /cu mm <=5 H LINING CELLS (BEAKER) (test code = 1590) 1 /cu mm <=1 NEUTROPHILS FLUID (BEAKER) (test code = 1656) 1 % LYMPHS FLUID (BEAKER) (test code = 488) 84 % MONO/MACROPHAGE FLUID (BEAKER) (test code = 489) 14 % EOSINOPHILS FLUID (BEAKER) (test code = 491) 1 % BASO FLUID (BEAKER) (test code = 492) 0 % CONTAINER BODY FLUID (BEAKER) (test code = 2873) Sterile Vial POCT-GLUCOSE [id number] 12:49:00* Test Item Value Reference Range Interpretation Comments POC-GLUCOSE METER (BEAKER) (test code = 1538) 163 mg/dL 70-110 H : TESTED AT [facility] [address] [facility], [address]: Assembler Hydraulic Backhoe/Student Career Development Specialist ID = [id number] for PB GREENWOOD RAD, CHEST, 1 VIEW, NON [id number] 12:22:00Reason for exam:->s/p thoracentesisShould this be performed at the bedside?->YesFINAL REPORT RAD, CHEST, 1 VIEW, NON DEPT INDICATION: s/p thoracentesis COMPARISON: September 16, 2019 FINDINGS: Portable frontal view of the chest. IMPRESSION: Limited by kyphotic positioning and underpenetration.Support Lines: None. Lungs and pleura: Decreasing right effusion following thoracentesis. No postprocedural pneumothorax.Heart and mediastinum: Stable contours. Stable surgical changes.Additional findings: None. Signed: JR Sidra, Greyson Ibarra Verified Date/Time: 09/16/2019 12:22:09 Reading Location: [address] Neuro Reading Room Electronically signed by: GREYSON VALENTE on 2019 12:22 PM BLOOD [id number] 09:37:00* Test Item Value Reference Range Interpretation Comments CULTURE (BEAKER) (test code = 1095) A From Aerobic Bottle Only Same organism has been isolated from cultures(s) of the same body site and collection date. Repeat identification and susceptibility testing performed only after consultation with the clinical microbiology laboratory.Refer to previous culture of* - Streptococcus anginosusThis is a corrected organism result. Previous result was Viridans Streptococcus on 09/10/2019 at 0752 ELECTORATE OFFICER GRAM STAIN RESULT (BEAKER) (test code = 1123) From aer obic bottle only: gram positive cocci in chains GRAM STAIN RESULT (BEAKER) (test code = 85743) From an aerobic bottle only: gram positive cocci in clusters GRAM STAIN RESULT (BEAKER) (test code = 109804) From a naerobic bottle only: gram positive cocci in clusters BLOOD [id number] 09:36:00* Test Item Value Reference Range Interpretation Comments CULTURE (BEAKER) (test code = 1095) STREPTOCOCCUS ANGINOSUS A From Anaerobic Bottle Only Streptococcus anginosus Ceftriaxone (test code = 52) Susceptible 0-1 , Resista nt <0 or >1 S Penicillin G (test code = 3) Susceptible 0-0.12 , Intermediate <0 or >.12 , Resistant >2 S Vancomycin (test code = 13) Susceptible 0-1 , No Interpretations Established <0 or >1 S GRAM STAIN RESULT (BEAKER) (test code = 1123) From lakeisha erobic bottle only: gram positive cocci in clusters POCT-GLUCOSE [id number] 08:56:00* Test Item Value Reference Range Interpretation Comments POC-GLUCOSE METER (BEAKER) (test code = 1538) 150 mg/dL 70-110 H : Notified RN/MD: TESTED AT [facility] [address] [facility], [address]: Assembler Hydraulic Backhoe/Student Career Development Specialist ID = [id number] for PB GREENWOOD BASIC METABOLIC [id number] 04:16:00* Test Item Value Reference Range Interpretation Comments SODIUM (BEAKER) (test code = 381) 139 meq/L 136-145 POTASSIUM (BEAKER) (test code = 379) 4.4 meq/L 3.5-5.1 Specimen moderately hemolyzed CHLORIDE (BEAKER) (test code = 382) 112 meq/L 98-107 H CO2 (BEAKER) (test code = 355) 17 meq/L 22-29 L BLOOD UREA NITROGEN (BEAKER) (test code = 354) 17 mg/dL 7-21 CREATININE (BEAKER) (test code = 358) 1.03 mg/dL 0.57-1.25 Specimen moderately hemolyzed GLUCOSE RANDOM (BEAKER) (test code = 652) 187 mg/dL 70-105 H CALCIUM (BEAKER) (test code = 697) 8.5 mg/dL 8.4-10.2 EGFR (BEAKER) (test code = 1092) 52 mL/min/1.73 sq m ESTIMATED GFR IS NOT ACCURATE CREATININE CLEARANCE IN PREDICTING GLOMERULAR FILTRATION RATE. ESTIMATED GFR IS NOT APPLICABLE FOR DIALYSIS PATIENTS. Assembler Hydraulic Backhoe ID - JOY MSpecimen slightly ictericPROTHROMBIN TIME/[id number] 04:11:00* Test Item Value Reference Range Interpretation Comments PROTIME (BEAKER) (test code = 759) 14.4 seconds 11.9-14.2 H INR (BEAKER) (test code = 370) 1.2 <=5.9 Effective 12/07/2018: PT Reference Range ChangeNew: 11.9-14.2 Previous: 11.7-14. 7RECOMMENDED COUMADIN/WARFARIN INR THERAPY RANGESSTANDARD DOSE: 2.0-3.0 Include s: PROPHYLAXIS for venous thrombosis, systemic embolization; TREATMENT for venou s thrombosis and/or pulmonary embolus.HIGH RISK: Target INR is 2.5-3.5 for patie nts wiht mechanical heart valves.CBC W/PLT COUNT & AUTO [id number] 04:03:00* Test Item Value Reference Range Interpretation Comments WHITE BLOOD CELL COUNT (BEAKER) (test code = 775) 9.5 K/ L 3.5- 10.5 RED BLOOD CELL COUNT (BEAKER) (test code = 761) 3.26 M/ L 3.93-5 .22 L HEMOGLOBIN (BEAKER) (test code = 410) 10.5 GM/DL 11.2-15.7 L HEMATOCRIT (BEAKER) (test code = 411) 33.5 % 34.1-44.9 L MEAN CORPUSCULAR VOLUME (BEAKER) (test code = 753) 102.8 fL 79. 4-94.8 H MEAN CORPUSCULAR HEMOGLOBIN (BEAKER) (test code = 751) 32.2 pg 25.6-32.2 MEAN CORPUSCULAR HEMOGLOBIN CONC (BEAKER) (test code = 752) 31.3 GM/DL 32.2-35.5 L RED CELL DISTRIBUTION WIDTH (BEAKER) (test code = 412) 16.6 % 11.7-14.4 H PLATELET COUNT (BEAKER) (test code = 756) 145 K/CU MM 150-450 L MEAN PLATELET VOLUME (BEAKER) (test code = 754) 11.9 fL 9.4-12 .3 NUCLEATED RED BLOOD CELLS (BEAKER) (test code = 413) 0 /100 WBC 0 -0 NEUTROPHILS RELATIVE PERCENT (BEAKER) (test code = 429) 71 % LYMPHOCYTES RELATIVE PERCENT (BEAKER) (test code = 430) 21 % MONOCYTES RELATIVE PERCENT (BEAKER) (test code = 431) 5 % EOSINOPHILS RELATIVE PERCENT (BEAKER) (test code = 432) 1 % BASOPHILS RELATIVE PERCENT (BEAKER) (test code = 437) 1 % NEUTROPHILS ABSOLUTE COUNT (BEAKER) (test code = 670) 6.73 K/ L 1.56-6.13 H LYMPHOCYTES ABSOLUTE COUNT (BEAKER) (test code = 414) 2.02 K/ L 1.18-3.74 MONOCYTES ABSOLUTE COUNT (BEAKER) (test code = 415) 0.46 K/ L 0. 24-0.36 H EOSINOPHILS ABSOLUTE COUNT (BEAKER) (test code = 416) 0.08 K/ L 0.04-0.36 BASOPHILS ABSOLUTE COUNT (BEAKER) (test code = 417) 0.05 K/ L 0. 01-0.08 IMMATURE GRANULOCYTES-RELATIVE PERCENT (BEAKER) (test code = 2801) 2 % 0-1 H POCT-GLUCOSE [id number] 21:54:00* Test Item Value Reference Range Interpretation Comments POC-GLUCOSE METER (BEAKER) (test code = 1538) 209 mg/dL 70-110 H : TESTED AT [address], [address]: Assembler Hydraulic Backhoe/Student Career Development Specialist ID = [id number] for MYRONCHULA POCT-GLUCOSE [id number] 18:02:00* Test Item Value Reference Range Interpretation Comments POC-GLUCOSE METER (BEAKER) (test code = 1538) 179 mg/dL 70-110 H : Notified RN/MD: TESTED AT [address], [address]: Assembler Hydraulic Backhoe/Student Career Development Specialist ID = [id number] for CELINA GREENWOODE POCT-GLUCOSE [id number] 12:49:00* Test Item Value Reference Range Interpretation Comments POC-GLUCOSE METER (BEAKER) (test code = 1538) 246 mg/dL 70-110 H : Notified RN/MD: TESTED AT [address], [address]: Assembler Hydraulic Backhoe/Student Career Development Specialist ID = [id number] for PB GREENWOOD POCT-GLUCOSE [id number] 09:44:00* Test Item Value Reference Range Interpretation Comments POC-GLUCOSE METER (BEAKER) (test code = 1538) 151 mg/dL 70-110 H : Notified RN/MD: TESTED AT [address], [address]: Assembler Hydraulic Backhoe/Student Career Development Specialist ID = [id number] for KRYSTYNA PB RAD, CHEST, 1 VIEW, NON [id number] 22:13:00Reason for exam:->SOBShould this be performed at the bedside?->YesFINAL REPORT RAD, CHEST, 1 VIEW, NON DEPT INDICATION: SOB COMPARISON: Radiograph the chest dated 09/07/2019. FINDINGS: Portable frontal view of the chest. IMPRESSION: Lungs and pleura: New moderate right pleural effusion with adjacent consolidative airspace opacity likely represents passive atelectasis however superimposed infection should be excluded clinically. Coarse interstitial lung markings bilaterally may be related to low lung volumes versus interstitial pulmonary edema. Minimal left basilar atelectasis. No pneumothorax.Heart and mediastinum: Stable contours. Stable surgical changes.Additional findings: None. Signed: Lidya Kongeport Verified Date/Time: 09/14/2019 22:13:11 -GLUCOSE [id number] 22:01:00* Test Item Value Reference Range Interpretation Comments POC-GLUCOSE METER (BEAKER) (test code = 1538) 213 mg/dL 70-110 H : TESTED AT [address], [address]: Assembler Hydraulic Backhoe/Student Career Development Specialist ID = [id number] for SIMA DIANE POCT-GLUCOSE [id number] 18:21:00* Test Item Value Reference Range Interpretation Comments POC-GLUCOSE METER (BEAKER) (test code = 1538) 221 mg/dL 70-110 H : TESTED AT [place] [id number] [facility], [address]: Assembler Hydraulic Backhoe/Student Career Development Specialist ID = [id number] for ALVINA PERALTA POCT-GLUCOSE [id number] 12:50:00* Test Item Value Reference Range Interpretation Comments POC-GLUCOSE METER (BEAKER) (test code = 1538) 176 mg/dL 70-110 H : TESTED AT [address], [address]: Assembler Hydraulic Backhoe/Student Career Development Specialist ID = [id number] for DEVIN PERALTAIAN Manual [id number] 09:15:00* Test Item Value Reference Range Interpretation Comments % Neutros (test code = 2816) 79 % % Lymphs (test code = 2817) 18 % % Eos (test code = 2819) 3 % # Neutros (test code = 2830) 9.95 K/ul 1.56-6.13 H # Lymphs (test code = 2831) 2.27 K/ul 1.18-3.74 # Eos (test code = 2834) 0.38 K/uL 0.04-0.36 H Total Counted (test code = 1351) 100 Platelet Morphology (test code = 486) Normal Toxic Granulation (test code = 771) Present Polychromasia (test code = 478) 1+ few Hypochromia (test code = 963) 1+ few Anisocytosis (test code = 961) 1+ few Macrocytes (test code = 964) 1+ few Artifact (test code = 3432) Present Platelet Conc (test code = 3438) Decreased FATIMAH (test code = FATIMAH) Assembler Hydraulic Backhoe ID - Virginia Baxter comments: Slide comm ents: Lab Interpretation (test code = 24856-6) Abnormal [facility] W/PLT COUNT & AUTO [id number] 09:15:00* Test Item Value Reference Range Interpretation Comments WHITE BLOOD CELL COUNT (BEAKER) (test code = 775) 12.6 K/ L 3.5- 10.5 H RED BLOOD CELL COUNT (BEAKER) (test code = 761) 3.72 M/ L 3.93-5 .22 L HEMOGLOBIN (BEAKER) (test code = 410) 12.0 GM/DL 11.2-15.7 HEMATOCRIT (BEAKER) (test code = 411) 38.3 % 34.1-44.9 MEAN CORPUSCULAR VOLUME (BEAKER) (test code = 753) 103.0 fL 79. 4-94.8 H MEAN CORPUSCULAR HEMOGLOBIN (BEAKER) (test code = 751) 32.3 pg 25.6-32.2 H MEAN CORPUSCULAR HEMOGLOBIN CONC (BEAKER) (test code = 752) 31.3 GM/DL 32.2-35.5 L RED CELL DISTRIBUTION WIDTH (BEAKER) (test code = 412) 16.4 % 11.7-14.4 H PLATELET COUNT (BEAKER) (test code = 756) 136 K/CU MM 150-450 L MEAN PLATELET VOLUME (BEAKER) (test code = 754) 12.2 fL 9.4-12 .3 NUCLEATED RED BLOOD CELLS (BEAKER) (test code = 413) 0 /100 WBC 0 -0 (CELLAVISION MANUAL DIFF)2019-09-14 09:15:00* Test Item Value Reference Range Interpretation Comments NEUTROPHILS - REL (CELLAVISION)(BEAKER) (test code = 2816) 79 % LYMPHOCYTES - REL (CELLAVISION)(BEAKER) (test code = 2817) 18 % EOSINOPHILS - REL (CELLAVISION)(BEAKER) (test code = 2819) 3 % NEUTROPHILS - ABS (CELLAVISION)(BEAKER) (test code = 2830) 9.95 K/ul 1.56-6.13 H LYMPHOCYTES - ABS (CELLAVISION)(BEAKER) (test code = 2831) 2.27 K/ul 1.18-3.74 EOSINOPHILS - ABS (CELLAVISION)(BEAKER) (test code = 2834) 0.38 K/uL 0.04-0.36 H TOTAL COUNTED (BEAKER) (test code = 1351) 100 PLT MORPHOLOGY (BEAKER) (test code = 486) Normal TOXIC GRANULATION (BEAKER) (test code = 771) Present POLYCHROMATOPHILLIC RBCS(BEAKER) (test code = 478) 1+ few HYPOCHROMIA (BEAKER) (test code = 963) 1+ few ANISOCYTOSIS (BEAKER) (test code = 961) 1+ few MACROCYTES (BEAKER) (test code = 964) 1+ few ARTIFACT (CELLAVISION)(BEAKER) (test code = 3432) Present PLATELET CONCENTRATION (CELLAVISION)(BEAKER) (test code = 3438) Dec reased Assembler [employer] ID - [place] Sahil comments: Slide comments: POCT-GLUCOSE [id number] 08:29:00* Test Item Value Reference Range Interpretation Comments POC-GLUCOSE METER (BEAKER) (test code = 1538) 126 mg/dL 70-110 H : TESTED AT [facility] [address] [facility], [id number]: Assembler Hydraulic Backhoe/Student Career Development Specialist ID = [id number] for ALVINA PERALTA BASIC METABOLIC [id number] 05:52:00* Test Item Value Reference Range Interpretation Comments SODIUM (BEAKER) (test code = 381) 139 meq/L 136-145 POTASSIUM (BEAKER) (test code = 379) 3.7 meq/L 3.5-5.1 CHLORIDE (BEAKER) (test code = 382) 112 meq/L 98-107 H CO2 (BEAKER) (test code = 355) 16 meq/L 22-29 L BLOOD UREA NITROGEN (BEAKER) (test code = 354) 23 mg/dL 7-21 H CREATININE (BEAKER) (test code = 358) 1.22 mg/dL 0.57-1.25 GLUCOSE RANDOM (BEAKER) (test code = 652) 105 mg/dL 70-105 CALCIUM (BEAKER) (test code = 697) 8.8 mg/dL 8.4-10.2 EGFR (BEAKER) (test code = 1092) 43 mL/min/1.73 sq m ESTIMATED GFR IS NOT ACCURATE CREATININE CLEARANCE IN PREDICTING GLOMERULAR FILTRATION RATE. ESTIMATED GFR IS NOT APPLICABLE FOR DIALYSIS PATIENTS. Assembler Hydraulic Backhoe ID Sally Banks moderately ictericHEPATIC FUNCTION [id number] 05:52:00* Test Item Value Reference Range Interpretation Comments TOTAL PROTEIN (BEAKER) (test code = 770) 6.6 gm/dL 6.0-8.3 ALBUMIN (BEAKER) (test code = 1145) 3.1 g/dL 3.5-5.0 L BILIRUBIN TOTAL (BEAKER) (test code = 377) 7.0 mg/dL 0.2-1.2 H BILIRUBIN DIRECT (BEAKER) (test code = 706) 5.3 mg/dL 0.1-0.5 H ALKALINE PHOSPHATASE (BEAKER) (test code = 346) 427 U/L 40-150 H AST (SGOT) (BEAKER) (test code = 353) 97 U/L 5-34 H ALT (SGPT) (BEAKER) (test code = 347) 35 U/L 6-55 Assembler Hydraulic Backhoe ID Sally Banks moderately ictericPOCT-GLUCOSE [id number] 22:03:00* Test Item Value Reference Range Interpretation Comments POC-GLUCOSE METER (BEAKER) (test code = 1538) 160 mg/dL 70-110 H : TESTED AT [facility] [address] [place] [address], [address]: Assembler Hydraulic Backhoe/Student Career Development Specialist ID = [id number] for BHANU BRYANT Blood Culture - Routine (Right Venipuncture)2019-09-13 19:00:00* Test Item Value Reference Range Interpretation Comments Result (test code = 6463-4) No [id number]* Test Item Value Reference Range Interpretation Comments CULTURE (BEAKER) (test code = 1095) No growth in 5 days BLOOD [id number] 19:00:00* Test Item Value Reference Range Interpretation Comments CULTURE (BEAKER) (test code = 1095) No growth in 5 days POCT-GLUCOSE [id number] 17:35:00* Test Item Value Reference Range Interpretation Comments POC-GLUCOSE METER (BEAKER) (test code = 1538) 173 mg/dL 70-110 H : TESTED AT [facility] [address] [facility], [address]: Assembler Hydraulic Backhoe/Student Career Development Specialist ID = [id number] for ALVINA PERALTA POCT-GLUCOSE [id number] 11:54:00* Test Item Value Reference Range Interpretation Comments POC-GLUCOSE METER (BEAKER) (test code = 1538) 164 mg/dL 70-110 H : TESTED AT [facility] [address] [facility], [address]: Assembler Hydraulic Backhoe/Student Career Development Specialist ID = [id number] for PERALTA ALVINA CBC W/PLT COUNT & AUTO [id number] 10:24:00* Test Item Value Reference Range Interpretation Comments WHITE BLOOD CELL COUNT (BEAKER) (test code = 775) 12.4 K/ L 3.5- 10.5 H RED BLOOD CELL COUNT (BEAKER) (test code = 761) 3.61 M/ L 3.93-5 .22 L HEMOGLOBIN (BEAKER) (test code = 410) 11.7 GM/DL 11.2-15.7 HEMATOCRIT (BEAKER) (test code = 411) 36.6 % 34.1-44.9 MEAN CORPUSCULAR VOLUME (BEAKER) (test code = 753) 101.4 fL 79. 4-94.8 H MEAN CORPUSCULAR HEMOGLOBIN (BEAKER) (test code = 751) 32.4 pg 25.6-32.2 H MEAN CORPUSCULAR HEMOGLOBIN CONC (BEAKER) (test code = 752) 32.0 GM/DL 32.2-35.5 L RED CELL DISTRIBUTION WIDTH (BEAKER) (test code = 412) 16.3 % 11.7-14.4 H PLATELET COUNT (BEAKER) (test code = 756) 126 K/CU MM 150-450 L MEAN PLATELET VOLUME (BEAKER) (test code = 754) 12.3 fL 9.4-12 .3 NUCLEATED RED BLOOD CELLS (BEAKER) (test code = 413) 0 /100 WBC 0 -0 (CELLAVISION MANUAL DIFF)2019-09-13 10:24:00* Test Item Value Reference Range Interpretation Comments NEUTROPHILS - REL (CELLAVISION)(BEAKER) (test code = 2816) 68 % LYMPHOCYTES - REL (CELLAVISION)(BEAKER) (test code = 2817) 14 % MONOCYTES - REL (CELLAVISION)(BEAKER) (test code = 2818) 9 % EOSINOPHILS - REL (CELLAVISION)(BEAKER) (test code = 2819) 2 % BASOPHILS - REL (CELLAVISION)(BEAKER) (test code = 2820) 2 % BANDS - REL (CELLAVISION)(BEAKER) (test code = 2826) 3 % 0 -10 ATYPICAL LYMPHOCYTES - REL (CELLAVISION)(BEAKER) (test code = 2829) 2 % 0-0 H NEUTROPHILS - ABS (CELLAVISION)(BEAKER) (test code = 2830) 8.43 K/ul 1.56-6.13 H LYMPHOCYTES - ABS (CELLAVISION)(BEAKER) (test code = 2831) 1.74 K/ul 1.18-3.74 MONOCYTES - ABS (CELLAVISION)(BEAKER) (test code = 2832) 1.12 K/uL 0.24-0.36 H EOSINOPHILS - ABS (CELLAVISION)(BEAKER) (test code = 2834) 0.25 K/uL 0.04-0.36 BASOPHILS - ABS (CELLAVISION)(BEAKER) (test code = 2835) 0.25 K/uL 0.01-0.08 H BANDS - ABS (CELLAVISION)(BEAKER) (test code = 2840) 0.37 K/uL 0 .00-0.80 ATYPICAL LYMPHOCYTES - ABS (CELLAVISION)(BEAKER) (test code = 2858) 0.25 K/uL 0.00-0.00 H TOTAL COUNTED (BEAKER) (test code = 1351) 100 WBC MORPHOLOGY (BEAKER) (test code = 487) Normal PLT MORPHOLOGY (BEAKER) (test code = 486) Normal POLYCHROMATOPHILLIC RBCS(BEAKER) (test code = 478) 1+ few ANISOCYTOSIS (BEAKER) (test code = 961) 1+ few MACROCYTES (BEAKER) (test code = 964) 1+ few ARTIFACT (CELLAVISION)(BEAKER) (test code = 3432) Present PLATELET CONCENTRATION (CELLAVISION)(BEAKER) (test code = 3438) Dec reased Assembler Hydraulic Backhoe ID - Lorena OverholtUser comments: Slide comments: POCT-GLUCOSE METER 2019-09-13 08:10:00* Test Item Value Reference Range Interpretation Comments POC-GLUCOSE METER (BEAKER) (test code = 1538) 117 mg/dL 70-110 H : TESTED AT [address], [address]: Assembler Hydraulic Backhoe/Student Career Development Specialist ID = [id number] for KATHRYN ALVINA BASIC METABOLIC [id number] 05:37:00* Test Item Value Reference Range Interpretation Comments SODIUM (BEAKER) (test code = 381) 140 meq/L 136-145 POTASSIUM (BEAKER) (test code = 379) 4.1 meq/L 3.5-5.1 CHLORIDE (BEAKER) (test code = 382) 114 meq/L 98-107 H CO2 (BEAKER) (test code = 355) 16 meq/L 22-29 L BLOOD UREA NITROGEN (BEAKER) (test code = 354) 26 mg/dL 7-21 H CREATININE (BEAKER) (test code = 358) 1.28 mg/dL 0.57-1.25 H GLUCOSE RANDOM (BEAKER) (test code = 652) 124 mg/dL 70-105 H CALCIUM (BEAKER) (test code = 697) 8.6 mg/dL 8.4-10.2 EGFR (BEAKER) (test code = 1092) 40 mL/min/1.73 sq m ESTIMATED GFR IS NOT ACCURATE CREATININE CLEARANCE IN PREDICTING GLOMERULAR FILTRATION RATE. ESTIMATED GFR IS NOT APPLICABLE FOR DIALYSIS PATIENTS. Assembler Hydraulic Backhoe ID - BARRINGTON Mahi moderately ictericHEPATIC FUNCTION [id number] 05:37:00* Test Item Value Reference Range Interpretation Comments TOTAL PROTEIN (BEAKER) (test code = 770) 6.1 gm/dL 6.0-8.3 ALBUMIN (BEAKER) (test code = 1145) 2.9 g/dL 3.5-5.0 L BILIRUBIN TOTAL (BEAKER) (test code = 377) 8.2 mg/dL 0.2-1.2 H BILIRUBIN DIRECT (BEAKER) (test code = 706) 6.0 mg/dL 0.1-0.5 H ALKALINE PHOSPHATASE (BEAKER) (test code = 346) 338 U/L 40-150 H AST (SGOT) (BEAKER) (test code = 353) 98 U/L 5-34 H ALT (SGPT) (BEAKER) (test code = 347) 35 U/L 6-55 Assembler Hydraulic Backhoe ID - BARRINGTON Champagne moderately ictericPOCT-GLUCOSE [id number] 23:22:00* Test Item Value Reference Range Interpretation Comments POC-GLUCOSE METER [facility] (test code = 1538) 146 mg/dL 70-110 H : TESTED AT [address], [address]: Assembler Hydraulic Backhoe/Student Career Development Specialist ID = [id number] for ELVA HOLM POCT-GLUCOSE [id number] 17:35:00* Test Item Value Reference Range Interpretation Comments POC-GLUCOSE METER (BANNER) (test code = 1538) 87 mg/dL 70-110 : TESTED AT [address], [address]: Assembler Hydraulic Backhoe/Student Career Development Specialist ID = [id number] for PB GREENWOOD POCT-GLUCOSE [id number] 13:04:00* Test Item Value Reference Range Interpretation Comments POC-GLUCOSE METER (BANNER) (test code = 1538) 161 mg/dL 70-110 H : Notified RN/MD: TESTED AT [address], [address]: Assembler Hydraulic Backhoe/Student Career Development Specialist ID = [id number] for PB GREENWOOD CBC W/PLT COUNT & AUTO [id number] 09:16:00* Test Item Value Reference Range Interpretation Comments WHITE BLOOD CELL COUNT (BEAKER) (test code = 775) 12.3 K/ L 3.5- 10.5 H RED BLOOD CELL COUNT (BEAKER) (test code = 761) 3.90 M/ L 3.93-5 .22 L HEMOGLOBIN (BEAKER) (test code = 410) 12.7 GM/DL 11.2-15.7 HEMATOCRIT (BEAKER) (test code = 411) 39.0 % 34.1-44.9 MEAN CORPUSCULAR VOLUME (BEAKER) (test code = 753) 100.0 fL 79. 4-94.8 H MEAN CORPUSCULAR HEMOGLOBIN (BEAKER) (test code = 751) 32.6 pg 25.6-32.2 H MEAN CORPUSCULAR HEMOGLOBIN CONC (BEAKER) (test code = 752) 32.6 GM/DL 32.2-35.5 RED CELL DISTRIBUTION WIDTH (BEAKER) (test code = 412) 16.0 % 11.7-14.4 H PLATELET COUNT (BEAKER) (test code = 756) 99 K/CU MM 150-450 L MEAN PLATELET VOLUME (BEAKER) (test code = 754) 12.3 fL 9.4-12 .3 NUCLEATED RED BLOOD CELLS (BEAKER) (test code = 413) 0 /100 WBC 0 -0 (CELLAVISION MANUAL DIFF)2019-09-12 09:16:00* Test Item Value Reference Range Interpretation Comments NEUTROPHILS - REL (CELLAVISION)(BEAKER) (test code = 2816) 68 % LYMPHOCYTES - REL (CELLAVISION)(BEAKER) (test code = 2817) 25 % MONOCYTES - REL (CELLAVISION)(BEAKER) (test code = 2818) 4 % EOSINOPHILS - REL (CELLAVISION)(BEAKER) (test code = 2819) 1 % BANDS - REL (CELLAVISION)(BEAKER) (test code = 2826) 2 % 0 -10 NEUTROPHILS - ABS (CELLAVISION)(BEAKER) (test code = 2830) 8.36 K/ul 1.56-6.13 H LYMPHOCYTES - ABS (CELLAVISION)(BEAKER) (test code = 2831) 3.08 K/ul 1.18-3.74 MONOCYTES - ABS (CELLAVISION)(BEAKER) (test code = 2832) 0.49 K/uL 0.24-0.36 H EOSINOPHILS - ABS (CELLAVISION)(BEAKER) (test code = 2834) 0.12 K/uL 0.04-0.36 BANDS - ABS (CELLAVISION)(BEAKER) (test code = 2840) 0.25 K/uL 0 .00-0.80 TOTAL COUNTED (BEAKER) (test code = 1351) 100 WBC MORPHOLOGY (BEAKER) (test code = 487) Normal PLT MORPHOLOGY (BEAKER) (test code = 486) Normal POLYCHROMATOPHILLIC RBCS(BEAKER) (test code = 478) 1+ few ARTIFACT (CELLAVISION)(BEAKER) (test code = 3432) Present PLATELET CONCENTRATION (CELLAVISION)(BEAKER) (test code = 3438) Dec reased Assembler Hydraulic Backhoe ID - [id number] ID - Audra Rose comments: Slide comments: POCT- GLUCOSE [id number] 08:19:00* Test Item Value Reference Range Interpretation Comments POC-GLUCOSE METER (BEAKER) (test code = 1538) 137 mg/dL 70-110 H : TESTED AT [facility] [address] [facility], [address]: Assembler Hydraulic Backhoe/Student Career Development Specialist ID = [id number] for PB GREENWOOD [id number] 06:38:00* Test Item Value Reference Range Interpretation Comments Phosphorus (test code = 2777-1) 2.4 mg/dL 2.3-4.7 FATIMAH (test code = FATIMAH) Assembler Hydraulic Backhoe ID - BARRINGTON W Lab Interpretation (test code = 36312-4) Normal [id number] 06:38:00* Test Item Value Reference Range Interpretation Comments PHOSPHORUS (BEAKER) (test code = 604) 2.4 mg/dL 2.3-4.7 Assembler Hydraulic Backhoe ID - BARRINGTON [id number] 06:38:00* Test Item Value Reference Range Interpretation Comments MAGNESIUM (BEAKER) (test code = 627) 2.2 mg/dL 1.6-2.6 Assembler Hydraulic Backhoe ID - BARRINGTON WBASIC METABOLIC [id number] 06:38:00* Test Item Value Reference Range Interpretation Comments SODIUM (BEAKER) (test code = 381) 140 meq/L 136-145 POTASSIUM (BEAKER) (test code = 379) 4.0 meq/L 3.5-5.1 CHLORIDE (BEAKER) (test code = 382) 112 meq/L 98-107 H CO2 (BEAKER) (test code = 355) 16 meq/L 22-29 L BLOOD UREA NITROGEN (BEAKER) (test code = 354) 29 mg/dL 7-21 H CREATININE (BEAKER) (test code = 358) 1.57 mg/dL 0.57-1.25 H GLUCOSE RANDOM (BEAKER) (test code = 652) 175 mg/dL 70-105 H CALCIUM (BEAKER) (test code = 697) 8.9 mg/dL 8.4-10.2 EGFR (BEAKER) (test code = 1092) 32 mL/min/1.73 sq m ESTIMATED GFR IS NOT ACCURATE CREATININE CLEARANCE IN PREDICTING GLOMERULAR FILTRATION RATE. ESTIMATED GFR IS NOT APPLICABLE FOR DIALYSIS PATIENTS. Assembler Hydraulic Backhoe ID - BARRINGTON Champagne markedly ictericHEPATIC FUNCTION [id number] 06:38:00* Test Item Value Reference Range Interpretation Comments TOTAL PROTEIN (BEAKER) (test code = 770) 6.6 gm/dL 6.0-8.3 ALBUMIN (BEAKER) (test code = 1145) 3.4 g/dL 3.5-5.0 L BILIRUBIN TOTAL (BEAKER) (test code = 377) 11.9 mg/dL 0.2-1.2 H BILIRUBIN DIRECT (BEAKER) (test code = 706) 8.9 mg/dL 0.1-0.5 H ALKALINE PHOSPHATASE (BEAKER) (test code = 346) 294 U/L 40-150 H AST (SGOT) (BEAKER) (test code = 353) 92 U/L 5-34 H ALT (SGPT) (BEAKER) (test code = 347) 34 U/L 6-55 Assembler Hydraulic Backhoe ID - BARRINGTON Champagne markedly ictericPOCT-GLUCOSE [id number] 01:10:00* Test Item Value Reference Range Interpretation Comments POC-GLUCOSE METER (BEAKER) (test code = 1538) 179 mg/dL 70-110 H : TESTED AT [facility] [address] [facility], [address]: Assembler Hydraulic Backhoe/Student Career Development Specialist ID = [id number] for Amanda Gayle POCT-GLUCOSE [id number] 18:12:00* Test Item Value Reference Range Interpretation Comments POC-GLUCOSE METER (BEAKER) (test code = 1538) 133 mg/dL 70-110 H : TESTED AT [facility] [address] [facility], [address]: Assembler Hydraulic Backhoe/Student Career Development Specialist ID = [id number] for PB GREENWOOD POCT-GLUCOSE [id number] 17:17:00* Test Item Value Reference Range Interpretation Comments POC-GLUCOSE METER (BEAKER) (test code = 1538) 140 mg/dL 70-110 H : TESTED AT [facility] [address] [facility], [address]: Assembler Hydraulic Backhoe/Student Career Development Specialist ID = [id number] for NORMA REINA [id number] 16:06:00* Test Item Value Reference Range Interpretation Comments PHOSPHORUS (BEAKER) (test code = 604) 2.3 mg/dL 2.3-4.7 Assembler Hydraulic Backhoe ID - [id number] 16:06:00* Test Item Value Reference Range Interpretation Comments MAGNESIUM (BEAKER) (test code = 627) 2.2 mg/dL 1.6-2.6 Assembler Hydraulic Backhoe ID - BSBASIC METABOLIC [id number] 16:06:00* Test Item Value Reference Range Interpretation Comments SODIUM (BEAKER) (test code = 381) 139 meq/L 136-145 POTASSIUM (BEAKER) (test code = 379) 4.2 meq/L 3.5-5.1 CHLORIDE (BEAKER) (test code = 382) 113 meq/L 98-107 H CO2 (BEAKER) (test code = 355) 19 meq/L 22-29 L BLOOD UREA NITROGEN (BEAKER) (test code = 354) 31 mg/dL 7-21 H CREATININE (BEAKER) (test code = 358) 1.48 mg/dL 0.57-1.25 H GLUCOSE RANDOM (BEAKER) (test code = 652) 146 mg/dL 70-105 H CALCIUM (BEAKER) (test code = 697) 8.3 mg/dL 8.4-10.2 L EGFR (BEAKER) (test code = 1092) 34 mL/min/1.73 sq m ESTIMATED GFR IS NOT ACCURATE CREATININE CLEARANCE IN PREDICTING GLOMERULAR FILTRATION RATE. ESTIMATED GFR IS NOT APPLICABLE FOR DIALYSIS PATIENTS. Assembler Hydraulic Backhoe ID - BSSpecimen moderately ictericHeparin [id number] 15:50:00* Test Item Value Reference Range Interpretation Comments Heparin Ab (test code = 3267-2) Negative Negative Heparin Antibody Optical Density (test code = 2659) 0.107 <0 .400 4T Total Score (test code = 2661) 5 FATIMAH (test code = FATIMAH) Probability of HIT based on scoring system: 6-8 = High probability; 4-5 = intermediate probability; 0-3 = low probability [facility] [id number] 15:50:00* Test Item Value Reference Range Interpretation Comments HEPARIN ANTIBODY (BEAKER) (test code = 646) Negative Negative HEPARIN ANTIBODY OD (BEAKER) (test code = 2659) 0.107 <0.400 4T TOTAL SCORE (BEAKER) (test code = 2661) 5 Probability of HIT based on scoring system: 6-8 = High probability; 4-5 = inter mediate probability; 0-3 = low probabilityPOCT-GLUCOSE [id number] 12:24:00 * Test Item Value Reference Range Interpretation Comments POC-GLUCOSE METER (BEAKER) (test code = 1538) 178 mg/dL 70-110 H : TESTED AT [place] [id number] [facility], [address]: Assembler Hydraulic Backhoe/Student Career Development Specialist ID = [id number] for NORMA REINA CBC W/PLT COUNT & AUTO [id number] 08:29:00* Test Item Value Reference Range Interpretation Comments WHITE BLOOD CELL COUNT (BEAKER) (test code = 775) 12.6 K/ L 3.5- 10.5 H RED BLOOD CELL COUNT (BEAKER) (test code = 761) 3.16 M/ L 3.93-5 .22 L HEMOGLOBIN (BEAKER) (test code = 410) 10.3 GM/DL 11.2-15.7 L HEMATOCRIT (BEAKER) (test code = 411) 31.2 % 34.1-44.9 L MEAN CORPUSCULAR VOLUME (BEAKER) (test code = 753) 98.7 fL 79. 4-94.8 H MEAN CORPUSCULAR HEMOGLOBIN (BEAKER) (test code = 751) 32.6 pg 25.6-32.2 H MEAN CORPUSCULAR HEMOGLOBIN CONC (BEAKER) (test code = 752) 33.0 GM/DL 32.2-35.5 RED CELL DISTRIBUTION WIDTH (BEAKER) (test code = 412) 15.7 % 11.7-14.4 H PLATELET COUNT (BEAKER) (test code = 756) 67 K/CU MM 150-450 L MEAN PLATELET VOLUME (BEAKER) (test code = 754) 12.3 fL 9.4-12 .3 NUCLEATED RED BLOOD CELLS (BEAKER) (test code = 413) 0 /100 WBC 0 -0 (CELLAVISION MANUAL DIFF)2019-09-11 08:29:00* Test Item Value Reference Range Interpretation Comments NEUTROPHILS - REL (CELLAVISION)(BEAKER) (test code = 2816) 70 % LYMPHOCYTES - REL (CELLAVISION)(BEAKER) (test code = 2817) 17 % MONOCYTES - REL (CELLAVISION)(BEAKER) (test code = 2818) 10 % METAMYELOCYTES - REL (CELLAVISION)(BEAKER) (test code = 2821) 1 % 0-0 H BANDS - REL (CELLAVISION)(BEAKER) (test code = 2826) 1 % 0 -10 ATYPICAL LYMPHOCYTES - REL (CELLAVISION)(BEAKER) (test code = 2829) 1 % 0-0 H NEUTROPHILS - ABS (CELLAVISION)(BEAKER) (test code = 2830) 8.82 K/ul 1.56-6.13 H LYMPHOCYTES - ABS (CELLAVISION)(BEAKER) (test code = 2831) 2.14 K/ul 1.18-3.74 MONOCYTES - ABS (CELLAVISION)(BEAKER) (test code = 2832) 1.26 K/uL 0.24-0.36 H METAMYELOCYTES - ABS (CELLAVISION)(BEAKER) (test code = 2836 ) 0.13 K/uL 0.00-0.00 H BANDS - ABS (CELLAVISION)(BEAKER) (test code = 2840) 0.13 K/uL 0 .00-0.80 ATYPICAL LYMPHOCYTES - ABS (CELLAVISION)(BEAKER) (test code = 2858) 0.13 K/uL 0.00-0.00 H TOTAL COUNTED (BEAKER) (test code = 1351) 100 MANUAL NRBC PER 100 CELLS (BEAKER) (test code = 1353) 1 /100 WBC 0-0 H PLT MORPHOLOGY (BEAKER) (test code = 486) Normal TOXIC GRANULATION (BEAKER) (test code = 771) Present POLYCHROMATOPHILLIC RBCS(BEAKER) (test code = 478) 2+ moderate ANISOCYTOSIS (BEAKER) (test code = 961) 1+ few MICROCYTES (BEAKER) (test code = 965) 1+ few POIKILOCYTES (BEAKER) (test code = 966) 1+ few SCHISTOCYTES (BEAKER) (test code = 765) 1+ few OVALOCYTES (BEAKER) (test code = 477) 1+ few TEAR DROP CELLS (BEAKER) (test code = 481) 1+ few PLATELET CONCENTRATION (CELLAVISION)(BEAKER) (test code = 3438) Dec reased Assembler Hydraulic Backhoe ID - AlokClairerand comments: Slide comments: POCT-GLUCOSE [id number] 08:15:00* Test Item Value Reference Range Interpretation Comments POC-GLUCOSE METER (BEAKER) (test code = 1538) 93 mg/dL 70-110 : TESTED AT [facility] [address] [facility], [address]: Assembler Hydraulic Backhoe/Student Career Development Specialist ID = [id number] for NORMA REINA [id number] 04:14:00* Test Item Value Reference Range Interpretation Comments PHOSPHORUS (BEAKER) (test code = 604) 2.7 mg/dL 2.3-4.7 Assembler Hydraulic Backhoe ID - JOY [id number] 04:14:00* Test Item Value Reference Range Interpretation Comments MAGNESIUM (BEAKER) (test code = 627) 2.4 mg/dL 1.6-2.6 Assembler Hydraulic Backhoe ID - JOY MHEPATIC FUNCTION [id number] 04:14:00* Test Item Value Reference Range Interpretation Comments TOTAL PROTEIN (BEAKER) (test code = 770) 5.2 gm/dL 6.0-8.3 L ALBUMIN (BEAKER) (test code = 1145) 2.7 g/dL 3.5-5.0 L BILIRUBIN TOTAL (BEAKER) (test code = 377) 12.9 mg/dL 0.2-1.2 H BILIRUBIN DIRECT (BEAKER) (test code = 706) 9.5 mg/dL 0.1-0.5 H ALKALINE PHOSPHATASE (BEAKER) (test code = 346) 167 U/L 40-150 H AST (SGOT) (BEAKER) (test code = 353) 52 U/L 5-34 H ALT (SGPT) (BEAKER) (test code = 347) 24 U/L 6-55 Assembler Hydraulic Backhoe ID - JOY MSpecimen markedly ictericBASIC METABOLIC [id number] 04:14:00* Test Item Value Reference Range Interpretation Comments SODIUM (BEAKER) (test code = 381) 140 meq/L 136-145 POTASSIUM (BEAKER) (test code = 379) 3.8 meq/L 3.5-5.1 CHLORIDE (BEAKER) (test code = 382) 112 meq/L 98-107 H CO2 (BEAKER) (test code = 355) 19 meq/L 22-29 L BLOOD UREA NITROGEN (BEAKER) (test code = 354) 33 mg/dL 7-21 H CREATININE (BEAKER) (test code = 358) 1.72 mg/dL 0.57-1.25 H GLUCOSE RANDOM (BEAKER) (test code = 652) 137 mg/dL 70-105 H CALCIUM (BEAKER) (test code = 697) 7.9 mg/dL 8.4-10.2 L EGFR (BEAKER) (test code = 1092) 29 mL/min/1.73 sq m ESTIMATED GFR IS NOT ACCURATE CREATININE CLEARANCE IN PREDICTING GLOMERULAR FILTRATION RATE. ESTIMATED GFR IS NOT APPLICABLE FOR DIALYSIS PATIENTS. Assembler Hydraulic Backhoe ID - JOY MSpecimenir markedly ictericPOCT-GLUCOSE [id number] 23:18:00* Test Item Value Reference Range Interpretation Comments POC-GLUCOSE METER (BEAKER) (test code = 1538) 162 mg/dL 70-110 H : TESTED AT [place] [id number] [facility], [address]: Assembler Hydraulic Backhoe/Student Career Development Specialist ID = [id number] for ALVIN STALLWORTH POCT-GLUCOSE [id number] 18:20:00* Test Item Value Reference Range Interpretation Comments POC-GLUCOSE METER (BEAKER) (test code = 1538) 152 mg/dL 70-110 H : TESTED AT [facility] [address] [facility], [address]: Assembler Hydraulic Backhoe/Student Career Development Specialist ID = [id number] for NORMA REINA BASIC METABOLIC [id number] 17:28:00* Test Item Value Reference Range Interpretation Comments SODIUM (BEAKER) (test code = 381) 140 meq/L 136-145 POTASSIUM (BEAKER) (test code = 379) 3.8 meq/L 3.5-5.1 CHLORIDE (BEAKER) (test code = 382) 112 meq/L 98-107 H CO2 (BEAKER) (test code = 355) 18 meq/L 22-29 L BLOOD UREA NITROGEN (BEAKER) (test code = 354) 35 mg/dL 7-21 H CREATININE (BEAKER) (test code = 358) 1.79 mg/dL 0.57-1.25 H GLUCOSE RANDOM (BEAKER) (test code = 652) 168 mg/dL 70-105 H CALCIUM (BEAKER) (test code = 697) 7.9 mg/dL 8.4-10.2 L EGFR (BEAKER) (test code = 1092) 27 mL/min/1.73 sq m ESTIMATED GFR IS NOT ACCURATE CREATININE CLEARANCE IN PREDICTING GLOMERULAR FILTRATION RATE. ESTIMATED GFR IS NOT APPLICABLE FOR DIALYSIS PATIENTS. Assembler Hydraulic Backhoe ID - IHSAN NSpecimen markedly [id number] 17:17:00* Test Item Value Reference Range Interpretation Comments PHOSPHORUS (BEAKER) (test code = 604) 3.4 mg/dL 2.3-4.7 Assembler Hydraulic Backhoe ID - IHSAN [id number] 17:17:00* Test Item Value Reference Range Interpretation Comments MAGNESIUM (BEAKER) (test code = 627) 1.9 mg/dL 1.6-2.6 Assembler Hydraulic Backhoe ID Sally CHAMPAGNE NPOCT-GLUCOSE [id number] 14:46:00* Test Item Value Reference Range Interpretation Comments POC-GLUCOSE METER (BEAKER) (test code = 1538) 158 mg/dL 70-110 H : TESTED AT [address], [address]: Assembler Hydraulic Backhoe/Student Career Development Specialist ID = [id number] for REINA YASMINWILLIAM Urine [id number] 10:34:00* Test Item Value Reference Range Interpretation Comments Result (test code = 6463-4) See comment FATIMAH (test code = FATIMAH) >100,000 col/[id number] 10:34:00* Test Item Value Reference Range Interpretation Comments CULTURE (BEAKER) (test code = 1095) See comment >100,000 col/mL skin floraPOCT-GLUCOSE [id number] 08:14:00* Test Item Value Reference Range Interpretation Comments POC-GLUCOSE METER (BEAKER) (test code = 1538) 128 mg/dL 70-110 H : TESTED AT [facility] [address] [facility], [address]: Assembler Hydraulic Backhoe/Student Career Development Specialist ID = [id number] for NORMA REINA BASIC METABOLIC [id number] 05:05:00* Test Item Value Reference Range Interpretation Comments SODIUM (BEAKER) (test code = 381) 137 meq/L 136-145 POTASSIUM (BEAKER) (test code = 379) 3.9 meq/L 3.5-5.1 Specimen slightly hemolyzed CHLORIDE (BEAKER) (test code = 382) 112 meq/L 98-107 H CO2 (BEAKER) (test code = 355) 16 meq/L 22-29 L BLOOD UREA NITROGEN (BEAKER) (test code = 354) 36 mg/dL 7-21 H CREATININE (BEAKER) (test code = 358) 1.77 mg/dL 0.57-1.25 H Specimen slightly hemolyzed GLUCOSE RANDOM (BEAKER) (test code = 652) 131 mg/dL 70-105 H CALCIUM (BEAKER) (test code = 697) 7.8 mg/dL 8.4-10.2 L EGFR (BEAKER) (test code = 1092) 28 mL/min/1.73 sq m ESTIMATED GFR IS NOT ACCURATE CREATININE CLEARANCE IN PREDICTING GLOMERULAR FILTRATION RATE. ESTIMATED GFR IS NOT APPLICABLE FOR DIALYSIS PATIENTS. Assembler Hydraulic Backhoe ID - JOY MSpecimen markedly [id number] 05:04:00* Test Item Value Reference Range Interpretation Comments PARTIAL THROMBOPLASTIN TIME (BEAKER) (test code = 760) 75.3 seconds 22.5-36.0 H [id number] 05:04:00* Test Item Value Reference Range Interpretation Comments MAGNESIUM (BEAKER) (test code = 627) 2.2 mg/dL 1.6-2.6 Specimen slightly hemolyzed Assembler Hydraulic Backhoe ID - JOY [id number] 05:04:00* Test Item Value Reference Range Interpretation Comments PHOSPHORUS (BEAKER) (test code = 604) 2.2 mg/dL 2.3-4.7 L Specimen slightly hemolyzed Assembler Hydraulic Backhoe ID - JOY MHEPATIC FUNCTION [id number] 05:04:00* Test Item Value Reference Range Interpretation Comments TOTAL PROTEIN (BEAKER) (test code = 770) 5.1 gm/dL 6.0-8.3 L Specimen slightly hemolyzed ALBUMIN (BEAKER) (test code = 1145) 2.7 g/dL 3.5-5.0 L Specimen slightly hemolyzed BILIRUBIN TOTAL (BEAKER) (test code = 377) 15.2 mg/dL 0.2-1.2 H Specimen slightly hemolyzed BILIRUBIN DIRECT (BEAKER) (test code = 706) 10.1 mg/dL 0.1-0.5 H Specimen slightly hemolyzed ALKALINE PHOSPHATASE (BEAKER) (test code = 346) 132 U/L 40-150 AST (SGOT) (BEAKER) (test code = 353) 44 U/L 5-34 H Specimen slightly hemolyzed ALT (SGPT) (BEAKER) (test code = 347) 28 U/L 6-55 Specimen slightly hemolyzed Assembler Hydraulic Backhoe ID - JOY MSpecimen markedly ictericCBC W/PLT COUNT & AUTO DIFFERENTIAL 2019-09-10 04:50:00* Test Item Value Reference Range Interpretation Comments WHITE BLOOD CELL COUNT (BEAKER) (test code = 775) 9.1 K/ L 3.5- 10.5 RED BLOOD CELL COUNT (BEAKER) (test code = 761) 3.08 M/ L 3.93-5 .22 L HEMOGLOBIN (BEAKER) (test code = 410) 10.2 GM/DL 11.2-15.7 L HEMATOCRIT (BEAKER) (test code = 411) 30.5 % 34.1-44.9 L MEAN CORPUSCULAR VOLUME (BEAKER) (test code = 753) 99.0 fL 79. 4-94.8 H MEAN CORPUSCULAR HEMOGLOBIN (BEAKER) (test code = 751) 33.1 pg 25.6-32.2 H MEAN CORPUSCULAR HEMOGLOBIN CONC (BEAKER) (test code = 752) 33.4 GM/DL 32.2-35.5 RED CELL DISTRIBUTION WIDTH (BEAKER) (test code = 412) 16.0 % 11.7-14.4 H PLATELET COUNT (BEAKER) (test code = 756) 46 K/CU MM 150-450 L MEAN PLATELET VOLUME (BEAKER) (test code = 754) 12.7 fL 9.4-12 .3 H NUCLEATED RED BLOOD CELLS (BEAKER) (test code = 413) 0 /100 WBC 0 -0 NEUTROPHILS RELATIVE PERCENT (BEAKER) (test code = 429) 66 % LYMPHOCYTES RELATIVE PERCENT (BEAKER) (test code = 430) 22 % MONOCYTES RELATIVE PERCENT (BEAKER) (test code = 431) 9 % EOSINOPHILS RELATIVE PERCENT (BEAKER) (test code = 432) 1 % BASOPHILS RELATIVE PERCENT (BEAKER) (test code = 437) 0 % NEUTROPHILS ABSOLUTE COUNT (BEAKER) (test code = 670) 5.98 K/ L 1.56-6.13 LYMPHOCYTES ABSOLUTE COUNT (BEAKER) (test code = 414) 1.99 K/ L 1.18-3.74 MONOCYTES ABSOLUTE COUNT (BEAKER) (test code = 415) 0.81 K/ L 0. 24-0.36 H EOSINOPHILS ABSOLUTE COUNT (BEAKER) (test code = 416) 0.07 K/ L 0.04-0.36 BASOPHILS ABSOLUTE COUNT (BEAKER) (test code = 417) 0.03 K/ L 0. 01-0.08 IMMATURE GRANULOCYTES-RELATIVE PERCENT (BEAKER) (test code = 2801) 3 % 0-1 H [id number] 23:33:00* Test Item Value Reference Range Interpretation Comments PARTIAL THROMBOPLASTIN TIME (BEAKER) (test code = 760) 66.7 seconds 22.5-36.0 H POCT-GLUCOSE [id number] 21:45:00* Test Item Value Reference Range Interpretation Comments POC-GLUCOSE METER (BEAKER) (test code = 1538) 140 mg/dL 70-110 H : TESTED AT [address], [address]: Assembler Hydraulic Backhoe/Student Career Development Specialist ID = [id number] for RAWLS, DIMA [id number] 18:14:00* Test Item Value Reference Range Interpretation Comments Potassium (test code = 2823-3) 3.4 meq/L 3.5-5.1 L FATIMAH (test code = FATIMAH) Assembler Hydraulic Backhoe ID - IHSAN N Lab Interpretation (test code = 38772-3) [facility] 18:14:00* Test Item Value Reference Range Interpretation Comments POTASSIUM (BEAKER) (test code = 379) 3.4 meq/L 3.5-5.1 L Assembler Hydraulic Backhoe SANDRINE CHAMPAGNE [id number] 18:01:00* Test Item Value Reference Range Interpretation Comments PARTIAL THROMBOPLASTIN TIME (BEAKER) (test code = 760) 72.2 seconds 22.5-36.0 H POCT-GLUCOSE [id number] 16:39:00* Test Item Value Reference Range Interpretation Comments POC-GLUCOSE METER (BEAKER) (test code = 1538) 140 mg/dL 70-110 H : TESTED AT [address], [address]: Assembler Hydraulic Backhoe/Student Career Development Specialist ID = [id number] for KAELA ESCOBAR BASIC METABOLIC [id number] 15:03:00* Test Item Value Reference Range Interpretation Comments SODIUM (BEAKER) (test code = 381) 136 meq/L 136-145 POTASSIUM (BEAKER) (test code = 379) 3.4 meq/L 3.5-5.1 L Specimen slightly hemolyzed CHLORIDE (BEAKER) (test code = 382) 108 meq/L 98-107 H CO2 (BEAKER) (test code = 355) 16 meq/L 22-29 L BLOOD UREA NITROGEN (BEAKER) (test code = 354) 36 mg/dL 7-21 H CREATININE (BEAKER) (test code = 358) 1.81 mg/dL 0.57-1.25 H Specimen slightly hemolyzed GLUCOSE RANDOM (BEAKER) (test code = 652) 183 mg/dL 70-105 H CALCIUM (BEAKER) (test code = 697) 7.8 mg/dL 8.4-10.2 L EGFR (BEAKER) (test code = 1092) 27 mL/min/1.73 sq m ESTIMATED GFR IS NOT ACCURATE CREATININE CLEARANCE IN PREDICTING GLOMERULAR FILTRATION RATE. ESTIMATED GFR IS NOT APPLICABLE FOR DIALYSIS PATIENTS. Assembler Hydraulic Backhoe ID - JERMAINE CSpecimen markedly [id number] 14:57:00* Test Item Value Reference Range Interpretation Comments MAGNESIUM (BEAKER) (test code = 627) 2.4 mg/dL 1.6-2.6 Specimen slightly hemolyzed Assembler Hydraulic Backhoe ID - JERMAINE [id number] 14:57:00* Test Item Value Reference Range Interpretation Comments PHOSPHORUS (BEAKER) (test code = 604) 3.0 mg/dL 2.3-4.7 Specimen slightly hemolyzed Assembler Hydraulic Backhoe ID - JERMAINE [id number] 11:34:00* Test Item Value Reference Range Interpretation Comments PARTIAL THROMBOPLASTIN TIME (BEAKER) (test code = 760) 64.5 seconds 22.5-36.0 H POCT-GLUCOSE [id number] 11:27:00* Test Item Value Reference Range Interpretation Comments POC-GLUCOSE METER (BEAKER) (test code = 1538) 201 mg/dL 70-110 H : TESTED AT [address], [address]: Assembler Hydraulic Backhoe/Student Career Development Specialist ID = [id number] for KAELA ESCOBAR BLOOD [id number] 10:38:00* Test Item Value Reference Range Interpretation Comments CULTURE (BEAKER) (test code = 1095) A From Aerobic Bottle Only Same organism has been isolated from cultures(s) of the same body site and collection date. Repeat identification and susceptibility testing performed only after consultation with the clinical microbiology laboratory.Refer to previous culture ofStreptococcus pneumoniae GRAM STAIN RESULT (BEAKER) (test code = 1123) From aer obic and anaerobic bottles: gram negative rods GRAM STAIN RESULT (BEAKER) (test code = 456135) From a erobic bottle only: gram positive cocci in chains Bilirubin, [id number] 10:21:00* Test Item Value Reference Range Interpretation Comments Bilirubin, Direct (test code = 1968-7) 10.9 mg/dL 0.1-0.5 H Specimen slightly hemolyzed FATIMAH (test code = FATIMAH) Assembler Hydraulic Backhoe ID - JERMAINE C Lab Interpretation (test code = 21485-5) [facility]normal [facility]IL[facility], [id number] 10:21:00* Test Item Value Reference Range Interpretation Comments BILIRUBIN DIRECT (BEAKER) (test code = 706) 10.9 mg/dL 0.1-0.5 H Specimen slightly hemolyzed Assembler Hydraulic Backhoe ID - JERMAINE CBLOOD [id number] 09:43:00* Test Item Value Reference Range Interpretation Comments CULTURE (BEAKER) (test code = 1095) ENTEROBACTER CLOACAE A From Aerobic And Anaerobic Bottles Enterobacter cloacae Amikacin (test code = 1) S Aztreonam (test code = 32) S Cefepime (test code = 51) S Cefoxitin (test code = 68) R Ceftazidime (test code = 27) S Ceftriaxone (test code = 52) S Ertapenem (test code = 38) S Gentamicin (test code = 18) S Levofloxacin (test code = 22) S Meropenem (test code = 34) S Nitrofurantoin (test code = 23) I Piperacillin + Tazobactam (test code = 29) S Tetracycline (test code = 2) S Tobramycin (test code = 25) S Trimethoprim + Sulfamethoxazole (test code = 47) S CULTURE (BEAKER) (test code = 1095) STREPTOCOCCUS PNEUMONIAE A From Aerobic Bottle Only Streptococcus pneumoniae Ceftriaxone (test code = 52) Susceptible 0-1 , Intermediate <0 or >1 , Resistant >2 S Levofloxacin (test code = 22) Susceptible 0-2 , Resist ant <0 or >2 S Penicillin G (test code = 3) Susceptible <=2 , Resista nt >2 S Vancomycin (test code = 13) Susceptible 0-1 , No Interpretations Established <0 or >1 S GRAM STAIN RESULT (BEAKER) (test code = 1123) From aer obic bottle only: gram positive cocci in chains GRAM STAIN RESULT (BEAKER) (test code = 620886) From a erobic and anaerobic bottles: gram negative rods POCT-GLUCOSE [id number] 07:44:00* Test Item Value Reference Range Interpretation Comments POC-GLUCOSE METER (BEAKER) (test code = 1538) 207 mg/dL 70-110 H : TESTED AT [facility] [address] [facility], [address]: Assembler Hydraulic Backhoe/Student Career Development Specialist ID = [id number] for RAMESH SOMMERS Digoxin [id number] 06:07:00* Test Item Value Reference Range Interpretation Comments Digoxin Lvl (test code = 55688-8) 0.4 ng/mL 0.8-2 L FATIMAH (test code = FATIMAH) Assembler Hydraulic Backhoe ID - LA Lab Interpretation (test code = 17552-1) Abnormal [facility] [id number] 06:07:00* Test Item Value Reference Range Interpretation Comments DIGOXIN LEVEL (BEAKER) (test code = 669) 0.4 ng/mL 0.8-2.0 L Assembler Hydraulic Backhoe ID - LATROPONIN [id number] 05:57:00* Test Item Value Reference Range Interpretation Comments TROPONIN I (BEAKER) (test code = 397) 1.81 ng/mL 0.00-0.03 HH Troponin I (TnI) levels must be interpreted in the context of the presenting sym ptoms and the clinical findings. Elevated TnI levels indicate myocardial damage, but are not specific for ischemic heart disease. Elevated TnI levels are seen i n patients with other cardiac conditions (including myocarditis and congestive h eart failure), and slight TnI elevations occur in patients with other conditions , including sepsis, renal failure, acidosis, acute neurological disease, and per sistent tachyarrhythmia.Assembler Hydraulic Backhoe ID - LACBC W/PLT COUNT & AUTO DIFFERENTIAL 2019-09-09 04:00:00* Test Item Value Reference Range Interpretation Comments WHITE BLOOD CELL COUNT (BEAKER) (test code = 775) 13.4 K/ L 3.5- 10.5 H RED BLOOD CELL COUNT (BEAKER) (test code = 761) 3.72 M/ L 3.93-5 .22 L HEMOGLOBIN (BEAKER) (test code = 410) 12.0 GM/DL 11.2-15.7 HEMATOCRIT (BEAKER) (test code = 411) 36.7 % 34.1-44.9 MEAN CORPUSCULAR VOLUME (BEAKER) (test code = 753) 98.7 fL 79. 4-94.8 H MEAN CORPUSCULAR HEMOGLOBIN (BEAKER) (test code = 751) 32.3 pg 25.6-32.2 H MEAN CORPUSCULAR HEMOGLOBIN CONC (BEAKER) (test code = 752) 32.7 GM/DL 32.2-35.5 RED CELL DISTRIBUTION WIDTH (BEAKER) (test code = 412) 15.9 % 11.7-14.4 H PLATELET COUNT (BEAKER) (test code = 756) 63 K/CU MM 150-450 L MEAN PLATELET VOLUME (BEAKER) (test code = 754) 12.8 fL 9.4-12 .3 H NUCLEATED RED BLOOD CELLS (BEAKER) (test code = 413) 0 /100 WBC 0 -0 NEUTROPHILS RELATIVE PERCENT (BEAKER) (test code = 429) 82 % LYMPHOCYTES RELATIVE PERCENT (BEAKER) (test code = 430) 11 % MONOCYTES RELATIVE PERCENT (BEAKER) (test code = 431) 5 % EOSINOPHILS RELATIVE PERCENT (BEAKER) (test code = 432) 0 % BASOPHILS RELATIVE PERCENT (BEAKER) (test code = 437) 0 % NEUTROPHILS ABSOLUTE COUNT (BEAKER) (test code = 670) 10.96 K/ L 1.56-6.13 H LYMPHOCYTES ABSOLUTE COUNT (BEAKER) (test code = 414) 1.42 K/ L 1.18-3.74 MONOCYTES ABSOLUTE COUNT (BEAKER) (test code = 415) 0.71 K/ L 0. 24-0.36 H EOSINOPHILS ABSOLUTE COUNT (BEAKER) (test code = 416) 0.02 K/ L 0.04-0.36 L BASOPHILS ABSOLUTE COUNT (BEAKER) (test code = 417) 0.05 K/ L 0. 01-0.08 IMMATURE GRANULOCYTES-RELATIVE PERCENT (BEAKER) (test code = 2801) 1 % 0-1 COMPREHENSIVE METABOLIC [id number] 03:48:00* Test Item Value Reference Range Interpretation Comments TOTAL PROTEIN (BEAKER) (test code = 770) 5.4 gm/dL 6.0-8.3 L Specimen slightly hemolyzed ALBUMIN (BEAKER) (test code = 1145) 2.6 g/dL 3.5-5.0 L Specimen slightly hemolyzed ALKALINE PHOSPHATASE (BEAKER) (test code = 346) 175 U/L 40-150 H BILIRUBIN TOTAL (BEAKER) (test code = 377) 15.0 mg/dL 0.2-1.2 H Specimen slightly hemolyzed SODIUM (BEAKER) (test code = 381) 136 meq/L 136-145 POTASSIUM (BEAKER) (test code = 379) 4.0 meq/L 3.5-5.1 Specimen slightly hemolyzed CHLORIDE (BEAKER) (test code = 382) 108 meq/L 98-107 H CO2 (BEAKER) (test code = 355) 16 meq/L 22-29 L BLOOD UREA NITROGEN (BEAKER) (test code = 354) 36 mg/dL 7-21 H CREATININE (BEAKER) (test code = 358) 1.81 mg/dL 0.57-1.25 H Specimen slightly hemolyzed GLUCOSE RANDOM (BEAKER) (test code = 652) 231 mg/dL 70-105 H CALCIUM (BEAKER) (test code = 697) 8.5 mg/dL 8.4-10.2 AST (SGOT) (BEAKER) (test code = 353) 72 U/L 5-34 H Specimen slightly hemolyzed ALT (SGPT) (BEAKER) (test code = 347) 49 U/L 6-55 Specimen slightly hemolyzed EGFR (BEAKER) (test code = 1092) 27 mL/min/1.73 sq m ESTIMATED GFR IS NOT ACCURATE CREATININE CLEARANCE IN PREDICTING GLOMERULAR FILTRATION RATE. ESTIMATED GFR IS NOT APPLICABLE FOR DIALYSIS PATIENTS. Assembler Hydraulic Backhoe ID - LASpecimen markedly [id number] 03:47:00* Test Item Value Reference Range Interpretation Comments PHOSPHORUS (BEAKER) (test code = 604) 1.2 mg/dL 2.3-4.7 LL Specimen slightly hemolyzed Assembler Hydraulic Backhoe ID - LABlood gas, [id number] 03:43:00* Test Item Value Reference Range Interpretation Comments pH, Arterial (test code = 2744-1) 7.47 7.35-7.45 H pCO2, Arterial (test code = 2019-8) 28 35- 45 mmHg L pO2, Arterial (test code = 2703-7) 78 80- 90 mmHg L O2 Sat, Arterial (test code = 2708-6) 96.5 % 96-97 HCO3, Arterial (test code = 1960-4) 20 mmol/L 21-29 L Base Excess, Arterial (test code = 1925-7) -2.9 mmol/L -2-3 L Patient Temperature (test code = 8310-5) 36.8 C FIO2 (test code = 1819) 28 % Lab Interpretation (test code = 96751-7) [facility] [id number] 03:43:00* Test Item Value Reference Range Interpretation Comments PH ARTERIAL (BEAKER) (test code = 383) 7.47 7.35-7.45 H PCO2 ARTERIAL (BEAKER) (test code = 384) 28 mmHg 35-45 L PO2 ARTERIAL (BEAKER) (test code = 385) 78 mmHg 80-90 L O2 SATURATION ARTERIAL (BEAKER) (test code = 386) 96.5 % 96.0 -97.0 HCO3 ARTERIAL (BEAKER) (test code = 388) 20 mmol/L 21-29 L BASE EXCESS ARTERIAL (BEAKER) (test code = 387) -2.9 mmol/L -2.0-3 .0 L PATIENT TEMPERATURE (BEAKER) (test code = 1818) 36.8 C FIO2 (BEAKER) (test code = 1819) 28.0 % [id number] 03:40:00* Test Item Value Reference Range Interpretation Comments MAGNESIUM (BEAKER) (test code = 627) 2.4 mg/dL 1.6-2.6 Specimen slightly hemolyzed Assembler Hydraulic Backhoe ID - [id number] 03:38:00* Test Item Value Reference Range Interpretation Comments PARTIAL THROMBOPLASTIN TIME (BEAKER) (test code = 760) 52.0 seconds 22.5-36.0 H RAD, ABDOMEN/KUB, 1 VIEW [id number] 02:38:00Reason for exam:->new abdominal pain, worst in LLQShould this be performed at the bedside?->YesFINAL REPORT RAD, ABDOMEN/KUB, 1 VIEW AP CLINICAL HISTORY: new abdominal pain, worst in LLQ TECHNIQUE: RAD, ABDOMEN/KUB, 1 VIEW AP COMPARISON: CT abdomen pelvis 09/06/2019 IMPRESSION: The bowel gas pattern is nonspecif ic/nonobstructive. No portal venous gas or pneumatosis intestinalis. No free air . Subhepatic biliary metallic stent. Thoracic and lumbar spondylosis. Stable T12 superior endplate concave deformity. Signed: Gabino Martinez MDReport Verified Date/Time: 09/09/2019 02:38:19 abdomen / KUB 1 [id number] 02:38:00 Interface, External Ris In - 09/09/2019 2:41 AM CSTFINAL REPORT PATIENT ID: [id number] RAD, ABDOMEN/KUB, 1 VIEW AP CLINICAL HISTORY: new abdominal pain, worst in LLQ TECHNIQUE: RAD, ABDOMEN/KUB, 1 VIEW AP COMPARISON: CT abdomen pelvis 09/06 IMPRESSION: The bowel gas pattern is nonspecific/nonobstructive. No portal venous gas or pneumatosis intestinalis. No free air. Subhepatic biliary metalli c stent. Thoracic and lumbar spondylosis. Stable T12 superior endplate concave d eformity. Signed: Gabino Martinez MDReport Verified Date/Time: 09/09/2019 02:38 :19 A M [facility] Hospital[facility], [id number] 02:11:00* Test Item Value Reference Range Interpretation Comments LACTATE BLOOD VENOUS (2) (STACIEAKER) (test code = 2872) 1.9 mmol/L 0 .5-2.2 Specimen slightly hemolyzed Assembler Hydraulic Backhoe ID - LASpecimen moderately ictericTROPONIN [id number] 01:08:00* Test Item Value Reference Range Interpretation Comments TROPONIN I (CECY) (test code = 397) 1.66 ng/mL 0.00-0.03 HH Troponin I (TnI) levels must be interpreted in the context of the presenting sym ptoms and the clinical findings. Elevated TnI levels indicate myocardial damage, but are not specific for ischemic heart disease. Elevated TnI levels are seen i n patients with other cardiac conditions (including myocarditis and congestive h eart failure), and slight TnI elevations occur in patients with other conditions , including sepsis, renal failure, acidosis, acute neurological disease, and per sistent tachyarrhythmia.Assembler Hydraulic Backhoe ID - [place] WPOCT-GLUCOSE [id number] 22:56:00* Test Item Value Reference Range Interpretation Comments POC-GLUCOSE METER (CECY) (test code = 1538) 174 mg/dL 70-110 H : TESTED AT [facility] [address] [facility], [address]: Assembler Hydraulic Backhoe/Student Career Development Specialist ID = [id number] for GÓMEZ GARCIA TROPONIN [id number] 18:52:00* Test Item Value Reference Range Interpretation Comments TROPONIN I (CECY) (test code = 397) 1.82 ng/mL 0.00-0.03 HH Troponin I (TnI) levels must be interpreted in the context of the presenting sym ptoms and the clinical findings. Elevated TnI levels indicate myocardial damage, but are not specific for ischemic heart disease. Elevated TnI levels are seen i n patients with other cardiac conditions (including myocarditis and congestive h eart failure), and slight TnI elevations occur in patients with other conditions , including sepsis, renal failure, acidosis, acute neurological disease, and per sistent tachyarrhythmia.Assembler Hydraulic Backhoe ID - BSClostridium difficile GDH Toxin 2019-09-08 18:45:00* Test Item Value Reference Range Interpretation Comments C. Difficle Toxin (test code = 5630409192) Negative Negative C. Difficile GDH Antigen (test code = 5165644717) Negative Nega tive No indication of Clostridium difficile infection and no colonization. Discontinue enteric isolation and therapy. FATIMAH (test code = FATIMAH) Testing performed by [employer] R apid Cassette Assay. For GDH, published sensitivity of the assay is 98.7% compared to cytotoxicity testing. For Toxin AB, published sensitivity is 87.8% and specificity 99.4% compared to cytotoxicity testing.Verification of kit performance was done by the [facility] Microbiology Lab prior to clinical use. Lab Interpretation (test code = 85197-2) Normal [facility]. DIFFICILE GDH [id number] 18:45:00* Test Item Value Reference Range Interpretation Comments CDT TOXIN (test code = 9756005484) Negative Negative CDT GDH ANTIGEN (test code = 4482344689) Negative Negative No indication of Clostridium difficile infection and no colonization. Discontinue enteric isolation and therapy. Testing performed by [employer] Rapid Cassette Assay. For GDH, published sensitivity of the assay is 98.7% compared to cytotoxicity testing. For Toxin AB, publishe d sensitivity is 87.8% and specificity 99.4% compared to cytotoxicity testing.Ve rification of kit performance was done by the [facility] Microbiology Lab prior to cl inical use.[id number] 18:36:00* Test Item Value Reference Range Interpretation Comments MAGNESIUM (BEAKER) (test code = 627) 2.7 mg/dL 1.6-2.6 H Specimen slightly hemolyzed Assembler Hydraulic Backhoe ID - [id number] 18:36:00* Test Item Value Reference Range Interpretation Comments POTASSIUM (BEAKER) (test code = 379) 3.8 meq/L 3.5-5.1 Specimen slightly hemolyzed Assembler Hydraulic Backhoe ID - BSPOCT-GLUCOSE [id number] 17:15:00* Test Item Value Reference Range Interpretation Comments POC-GLUCOSE METER (BEAKER) (test code = 1538) 228 mg/dL 70-110 H : TESTED AT [facility] [address] [facility], [address]: Assembler Hydraulic Backhoe/Student Career Development Specialist ID = [id number] for GUMATAY, RAMESH TROPONIN [id number] 14:05:00* Test Item Value Reference Range Interpretation Comments TROPONIN I (CECY) (test code = 397) 2.06 ng/mL 0.00-0.03 HH Troponin I (TnI) levels must be interpreted in the context of the presenting sym ptoms and the clinical findings. Elevated TnI levels indicate myocardial damage, but are not specific for ischemic heart disease. Elevated TnI levels are seen i n patients with other cardiac conditions (including myocarditis and congestive h eart failure), and slight TnI elevations occur in patients with other conditions , including sepsis, renal failure, acidosis, acute neurological disease, and per sistent tachyarrhythmia.Assembler Hydraulic Backhoe ID - SINTIA POWELL/Caesar, HEPATIC PORTAL VESSEL WITH [id number] 14:01:00Reason for exam:->persistent mild intrahepatic prominance, eval portal veinFINAL REPORT HISTORY : Persistent mild intrahepatic prominence, [...] flow. IMPRESSION : 1. Mild intrahepatic or dilatation.2. Gallbladder sludge. No evidence of acute cholecystitis.3. Pancreatic head m ass.4. Patent hepatic vasculature with normal directional flow. Signed: Jose Alberto Chan MDRcaitlyn Verified Date/Time: 09/08/2019 14:01:36 Reading Location: [facility] C013W Consult Reading Room Hepatic Portal Vessel with [id number] 14:01:00Interface, External Ris In - 09/08/2019 2:01 PM CSTFINAL REPORT HISTORY : Persistent mild intrahepatic prominence, [...] flow. IMPRESSION : 1. Mild intrahepatic or dilatation.2. Gallbladder sludge. No evidence of acute cholecystitis.3. Pancreatic head mass.4. Patent hepatic vasculature with normal directional flow. Signed: Jose Alberto Chan Verified Date/Time: 09/08/2019 14:01:36 Reading Location: [facility] B1 C013W Consult Reading Room [facility] [id number] 13:56:00* Test Item Value Reference Range Interpretation Comments SODIUM (BEAKER) (test code = 381) 135 meq/L 136-145 L POTASSIUM (BEAKER) (test code = 379) 3.6 meq/L 3.5-5.1 CHLORIDE (BEAKER) (test code = 382) 107 meq/L 98-107 CO2 (BEAKER) (test code = 355) 19 meq/L 22-29 L BLOOD UREA NITROGEN (BEAKER) (test code = 354) 36 mg/dL 7-21 H CREATININE (BEAKER) (test code = 358) 1.78 mg/dL 0.57-1.25 H GLUCOSE RANDOM (BEAKER) (test code = 652) 243 mg/dL 70-105 H CALCIUM (BEAKER) (test code = 697) 7.9 mg/dL 8.4-10.2 L EGFR (BEAKER) (test code = 1092) 28 mL/min/1.73 sq m ESTIMATED GFR IS NOT ACCURATE CREATININE CLEARANCE IN PREDICTING GLOMERULAR FILTRATION RATE. ESTIMATED GFR IS NOT APPLICABLE FOR DIALYSIS PATIENTS. Assembler Hydraulic Backhoe ID Sally Banks markedly ictericLactic Acid, [id number] 13:52:00* Test Item Value Reference Range Interpretation Comments Lactate, Art (test code = 2874) 2.1 mmol/L 0.5-2.2 FATIMAH (test code = FATIMAH) [employer] SANDRINE Banks moderately icte joel Lab Interpretation (test code = 91368-3) [facility] [id number] 13:52:00* Test Item Value Reference Range Interpretation Comments LACTATE BLOOD ARTERIAL (2) (BEAKER) (test code = 2874) 2.1 mmol/L 0.5-2.2 [employer] ID Sally Banks moderately ictericTROPONIN [id number] 12:38:00* Test Item Value Reference Range Interpretation Comments TROPONIN I (BEAKER) (test code = 397) 2.23 ng/mL 0.00-0.03 HH Troponin I (TnI) levels must be interpreted in the context of the presenting sym ptoms and the clinical findings. Elevated TnI levels indicate myocardial damage, but are not specific for ischemic heart disease. Elevated TnI levels are seen i n patients with other cardiac conditions (including myocarditis and congestive h eart failure), and slight TnI elevations occur in patients with other conditions , including sepsis, renal failure, acidosis, acute neurological disease, and per sistent tachyarrhythmia.Assembler Hydraulic Backhoe ID - PIAYA LPOCT-GLUCOSE [id number] 11:58:00* Test Item Value Reference Range Interpretation Comments POC-GLUCOSE METER (BEAKER) (test code = 1538) 227 mg/dL 70-110 H : TESTED AT [facility] [address] [facility], [address]: Assembler Hydraulic Backhoe/Student Career Development Specialist ID = [id number] for CONCEPCOIN [place] BASIC METABOLIC [id number] 11:48:00* Test Item Value Reference Range Interpretation Comments SODIUM (BEAKER) (test code = 381) 138 meq/L 136-145 POTASSIUM (BEAKER) (test code = 379) 3.4 meq/L 3.5-5.1 L CHLORIDE (BEAKER) (test code = 382) 108 meq/L 98-107 H CO2 (BEAKER) (test code = 355) 18 meq/L 22-29 L BLOOD UREA NITROGEN (BEAKER) (test code = 354) 37 mg/dL 7-21 H CREATININE (BEAKER) (test code = 358) 1.85 mg/dL 0.57-1.25 H GLUCOSE RANDOM (BEAKER) (test code = 652) 178 mg/dL 70-105 H CALCIUM (BEAKER) (test code = 697) 8.0 mg/dL 8.4-10.2 L EGFR (BEAKER) (test code = 1092) 26 mL/min/1.73 sq m ESTIMATED GFR IS NOT ACCURATE CREATININE CLEARANCE IN PREDICTING GLOMERULAR FILTRATION RATE. ESTIMATED GFR IS NOT APPLICABLE FOR DIALYSIS PATIENTS. Assembler Hydraulic Backhoe ID - PIAYA LSpecimen markedly ictericTROPONIN [id number] 11:19:00* Test Item Value Reference Range Interpretation Comments TROPONIN I (BEAKER) (test code = 397) 2.17 ng/mL 0.00-0.03 HH Troponin I (TnI) levels must be interpreted in the context of the presenting sym ptoms and the clinical findings. Elevated TnI levels indicate myocardial damage, but are not specific for ischemic heart disease. Elevated TnI levels are seen i n patients with other cardiac conditions (including myocarditis and congestive h eart failure), and slight TnI elevations occur in patients with other conditions , including sepsis, renal failure, acidosis, acute neurological disease, and per sistent tachyarrhythmia.Assembler Hydraulic Backhoe ID Sally PATRICIO [id number] 09:22:00* Test Item Value Reference Range Interpretation Comments PARTIAL THROMBOPLASTIN TIME (BEAKER) (test code = 760) 65.9 seconds 22.5-36.0 H [id number] 09:21:00* Test Item Value Reference Range Interpretation Comments Fibrinogen (test code = 3255-7) 784 mg/dl 225-434 H Lab Interpretation (test code = 39467-8) [facility] 09:21:00* Test Item Value Reference Range Interpretation Comments FIBRINOGEN LEVEL (BEAKER) (test code = 658) 784 mg/dl 225-434 H PROTHROMBIN TIME/[id number] 09:20:00* Test Item Value Reference Range Interpretation Comments PROTIME (BEAKER) (test code = 759) 15.4 seconds 11.9-14.2 H INR (BEAKER) (test code = 370) 1.3 <=5.9 Effective 12/07/2018: PT Reference Range ChangeNew: 11.9-14.2 Previous: 11.7-14. 7RECOMMENDED COUMADIN/WARFARIN INR THERAPY RANGESSTANDARD DOSE: 2.0-3.0 Include s: PROPHYLAXIS for venous thrombosis, systemic embolization; TREATMENT for venou s thrombosis and/or pulmonary embolus.HIGH RISK: Target INR is 2.5-3.5 for patie nts wiht mechanical heart valves.[id number] 09:13:00* Test Item Value Reference Range Interpretation Comments Haptoglobin (test code = 4542-7) 136 mg/dL 14-258 FATIMAH (test code = FATIMAH) Assembler Hydraulic Backhoe ID - SINTIA L Lab Interpretation (test code = 52029-1) [facility] 09:13:00* Test Item Value Reference Range Interpretation Comments HAPTOGLOBIN (BEAKER) (test code = 366) 136 mg/dL 14-258 Assembler Hydraulic Backhoe ID Sally PATRICIO LLactate dehydrogenase (LDH)2019-09-08 08:58:00* Test Item Value Reference Range Interpretation Comments LDH (test code = 2532-0) 246 U/L 125-220 H FATIMAH (test code = FATIMAH) Assembler Hydraulic Backhoe ID - SINTIA L Lab Interpretation (test code = 56928-7) [facility] [id number] 08:58:00* Test Item Value Reference Range Interpretation Comments POC-GLUCOSE METER (BEAKER) (test code = 1538) 165 mg/dL 70-110 H : TESTED AT [facility] [address] [place], [address]: Assembler Hydraulic Backhoe/Student Career Development Specialist ID = [id number] for CONCEPCION [place] LACTATE DEHYDROGENASE (LDH)2019-09-08 08:58:00* Test Item Value Reference Range Interpretation Comments LACTATE DEHYDROGENASE (BEAKER) (test code = 635) 246 U/L 125-2 20 H Assembler Hydraulic Backhoe ID Sally PATRICIO LCBC W/PLT COUNT & AUTO [id number] 08:39:00* Test Item Value Reference Range Interpretation Comments WHITE BLOOD CELL COUNT (BEAKER) (test code = 775) 14.5 K/ L 3.5- 10.5 H RED BLOOD CELL COUNT (BEAKER) (test code = 761) 3.29 M/ L 3.93-5 .22 L HEMOGLOBIN (BEAKER) (test code = 410) 10.7 GM/DL 11.2-15.7 L HEMATOCRIT (BEAKER) (test code = 411) 32.5 % 34.1-44.9 L MEAN CORPUSCULAR VOLUME (BEAKER) (test code = 753) 98.8 fL 79. 4-94.8 H MEAN CORPUSCULAR HEMOGLOBIN (BEAKER) (test code = 751) 32.5 pg 25.6-32.2 H MEAN CORPUSCULAR HEMOGLOBIN CONC (BEAKER) (test code = 752) 32.9 GM/DL 32.2-35.5 RED CELL DISTRIBUTION WIDTH (BEAKER) (test code = 412) 16.0 % 11.7-14.4 H PLATELET COUNT (BEAKER) (test code = 756) 83 K/CU MM 150-450 L MEAN PLATELET VOLUME (BEAKER) (test code = 754) 11.7 fL 9.4-12 .3 NUCLEATED RED BLOOD CELLS (BEAKER) (test code = 413) 0 /100 WBC 0 -0 (CELLAVISION MANUAL DIFF)2019-09-08 08:39:00* Test Item Value Reference Range Interpretation Comments NEUTROPHILS - REL (CELLAVISION)(BEAKER) (test code = 2816) 86 % LYMPHOCYTES - REL (CELLAVISION)(BEAKER) (test code = 2817) 6 % BANDS - REL (CELLAVISION)(BEAKER) (test code = 2826) 8 % 0 -10 NEUTROPHILS - ABS (CELLAVISION)(BEAKER) (test code = 2830) 12.47 K/ul 1.56-6.13 H LYMPHOCYTES - ABS (CELLAVISION)(BEAKER) (test code = 2831) 0.87 K/ul 1.18-3.74 L BANDS - ABS (CELLAVISION)(BEAKER) (test code = 2840) 1.16 K/uL 0 .00-0.80 H TOTAL COUNTED (BEAKER) (test code = 1351) 100 WBC MORPHOLOGY (BEAKER) (test code = 487) Normal LARGE PLT(BEAKER) (test code = 2156) Present POLYCHROMATOPHILLIC RBCS(BEAKER) (test code = 478) 1+ few ANISOCYTOSIS (BEAKER) (test code = 961) 1+ few POIKILOCYTES (BEAKER) (test code = 966) 1+ few OVALOCYTES (BEAKER) (test code = 477) 1+ few ARTIFACT (CELLAVISION)(BEAKER) (test code = 3432) Present PLATELET CONCENTRATION (CELLAVISION)(BEAKER) (test code = 3438) Dec reased Assembler Hydraulic Backhoe ID - Shauna Jon comments: Slide comments: WBC: SEGMENTED WI TH TOXIC GRANULATIONS PRESENT 2D Echo W/Doppler(CW/PW/Color)2019-09-08 07:49:00 Ejection FractionSLEH ECHO HEARTLAB MKCKESSON CPACSInterface, External Ris In - 09/08/2019 7:49 AM CSTTransthoracic Echocardiography Report (TTE) Demographics Patient Name SRAVAN TONY Date of Study 09/07/2019 CAHANIN Gender Female Visit Numb er [id number] Race Unknown Room Number 7303 Number Date of 1940 Referring Physician Gale Mckenna MD Age 79 year(s) Cushion Cover Inspector Laz Blas Sports Editor Marilee Arauz, Interpreting Gale barboza MD [facility] Physician Mecca aparicio MD Procedure Type of St udy TTE procedure:2DECHO W DOPPLER(CW/PW/COLOR) (STAT) Indications:Elevated Troponin and S/P CABG.Clinical HistoryHGB 11.6HCT 34.4 %ADENOCARCINOMA OF PANCRE , DM II, CKD III, CAD S/P CABG X3, HTN, HLD,DEPRESSION, PAD, PVD, PVC, BUCKY ON CPAPContrast Medium: Definity. Amount - 4 mlHeight: 68 inches Weight: 86.18 kg ( 190 lbs) BSA: 2 m^2 BMI: 28.89 kg/m^2HR: 100 bpm BP: 139/53 mmHg Previous Study No prior studies available for comparison. Signature Findings Technical Quality: Technicall y adequate exam. Left Ventricle LV endocardium is adequately visualized with IV ultrasound enhancing agent. The left ventricle is chamber size (by vol index) is normal (female - LVED vol - 29-61ml/m2). No evidence of LV hypertrophy. Septal motion is abnormal, likely related to prior cardiac surgery . The other segments have low norm al contractility. Global LV systolic function lower limit s of normal . LVEF by Bolaños's method [...] No evidence of aortic regurgitation. Mitral Valve M ild mitral annular calcification. Trace mitral regurgitat ion. Tricuspid Valve TV structure is normal. A tr reji of tricuspid regurgitation. Unable to estimate peak s ystolic PA pressure; inadequate TR velocity signal. Pulm onic Valve Normal PV structure and function by limited views and Doppler. Aorta Aortic root size (SInus of Vals tavarez diameter) is normal . Pericardium No per icardial effusion is visualized. IVC/SVC/PA/PV/Pleural The estimated RA pressu re by IVC dynamics 5-10mmHg . Chambers/Structures Left At rium LA Volume: 56.17 ml LA Area: 19.54 cm^2 LA Vol. Index: 28 ml/m^2 Left Ventricle LVIDd: 4.56 cm LVIDs: 2.76 cm LV Septum Diastolic: 1 .06 cm LV PW Diastolic: 1.12 cm LV Length: 7.28 cm LVEDV Simps on's:60.24 ml LV FS: 39.5 % LVESV Bolaños's:28.16 ml LVEF Simp son's: 53.2 % LVEDVI: 30 ml/m^2 LVESVI: 14 ml/m^2 LVOT Diameter: 1.91 cm Right Atrium R A Vol. (Sngl Plane): 44.89 ml Aorta Ao Root S of Tanika.: 2.82 cm Doppler/Quantita tive Measurements Mitral Valve MV Peak E-Wave: 0.88 m/s MV Peak A- Wave: 1.11 m/s E/A Ratio: 0.79 Peak Gradient: 3.1 mmHg Deceleration Time: 189.6 msec MV Carlos. Peak: Tissue Doppler E' Latera l Velocity: 0.07 m/s Aortic Valve Peak Velocity: 1.9 m/s Nurys n Velocity: 1.46 m/s Peak Gradient: 14.37 mmHg Mean Gradient: 9.2 2 mmHg AV Area (continuity): 2.25 cm^2 AV VTI: 34.83 cm AV DVI: 0.78 LVOT Pea k Velocity: 1.5 m/s Peak Gradient: 9.02 mmHg Mean Velocity: 1.09 m/ s Mean Gradient: 5.42 mmHg LVOT Diameter: 1.91 cm LVOT VTI: 27.32 cm LVOT Area: 2.87 cm^2 LVOT SV:78.24 ml LVOT CO: 7.82 l/min LVOT CI: 3.91 l/min/m^2 [facility] [id number] 07:03:00* Test Item Value Reference Range Interpretation Comments MAGNESIUM (BEAKER) (test code = 627) 1.5 mg/dL 1.6-2.6 L Specimen slightly hemolyzed Assembler Hydraulic Backhoe ID - PIAYA [id number] 07:03:00* Test Item Value Reference Range Interpretation Comments PHOSPHORUS (BEAKER) (test code = 604) 2.5 mg/dL 2.3-4.7 Specimen slightly hemolyzed Assembler Hydraulic Backhoe ID - PIAYA LCOMPREHENSIVE METABOLIC [id number] 05:00:00* Test Item Value Reference Range Interpretation Comments TOTAL PROTEIN (BEAKER) (test code = 770) 5.0 gm/dL 6.0-8.3 L Specimen slightly hemolyzed ALBUMIN (BEAKER) (test code = 1145) 2.3 g/dL 3.5-5.0 L Specimen slightly hemolyzed ALKALINE PHOSPHATASE (BEAKER) (test code = 346) 155 U/L 40-150 H BILIRUBIN TOTAL (BEAKER) (test code = 377) 9.6 mg/dL 0.2-1.2 H Specimen slightly hemolyzed SODIUM (BEAKER) (test code = 381) 139 meq/L 136-145 POTASSIUM (BEAKER) (test code = 379) 2.9 meq/L 3.5-5.1 L Specimen slightly hemolyzed CHLORIDE (BEAKER) (test code = 382) 107 meq/L 98-107 CO2 (BEAKER) (test code = 355) 20 meq/L 22-29 L BLOOD UREA NITROGEN (BEAKER) (test code = 354) 36 mg/dL 7-21 H CREATININE (BEAKER) (test code = 358) 1.76 mg/dL 0.57-1.25 H Specimen slightly hemolyzed GLUCOSE RANDOM (BEAKER) (test code = 652) 163 mg/dL 70-105 H CALCIUM (BEAKER) (test code = 697) 7.8 mg/dL 8.4-10.2 L AST (SGOT) (BEAKER) (test code = 353) 133 U/L 5-34 H Specimen slightly hemolyzed ALT (SGPT) (BEAKER) (test code = 347) 59 U/L 6-55 H Specimen slightly hemolyzed EGFR (BEAKER) (test code = 1092) 28 mL/min/1.73 sq m ESTIMATED GFR IS NOT ACCURATE CREATININE CLEARANCE IN PREDICTING GLOMERULAR FILTRATION RATE. ESTIMATED GFR IS NOT APPLICABLE FOR DIALYSIS PATIENTS. Assembler Hydraulic Backhoe ID Sally Banks moderately [id number] 02:30:00* Test Item Value Reference Range Interpretation Comments PARTIAL THROMBOPLASTIN TIME (BEAKER) (test code = 760) 79.6 seconds 22.5-36.0 H LACTIC ACID, [id number] 01:55:00* Test Item Value Reference Range Interpretation Comments LACTATE BLOOD VENOUS (2) (BEAKER) (test code = 2872) 2.1 mmol/L 0 .5-2.2 Assembler Hydraulic Backhoe ID Sally Banks moderately ictericPOCT-GLUCOSE [id number] 21:29:00* Test Item Value Reference Range Interpretation Comments POC-GLUCOSE METER (BEAKER) (test code = 1538) 220 mg/dL 70-110 H : TESTED AT [address], [address]: Assembler Hydraulic Backhoe/Student Career Development Specialist ID = [id number] for GÓMEZ GARCIA [id number] 20:18:00* Test Item Value Reference Range Interpretation Comments PARTIAL THROMBOPLASTIN TIME (BEAKER) (test code = 760) 56.8 seconds 22.5-36.0 H LACTIC ACID, [id number] 17:14:00* Test Item Value Reference Range Interpretation Comments LACTATE BLOOD ARTERIAL (2) (BEAKER) (test code = 2874) 4.4 mmol/L 0.5-2.2 H Specimen slightly hemolyzed Assembler Hydraulic Backhoe SANDRINE Esquivel moderately ictericBLOOD GAS, [id number] 16:39:00* Test Item Value Reference Range Interpretation Comments PH ARTERIAL (BEAKER) (test code = 383) 7.45 7.35-7.45 PCO2 ARTERIAL (BEAKER) (test code = 384) 28 mmHg 35-45 L PO2 ARTERIAL (BEAKER) (test code = 385) 162 mmHg 80-90 H O2 SATURATION ARTERIAL (BEAKER) (test code = 386) 99.1 % 96.0 -97.0 H HCO3 ARTERIAL (BEAKER) (test code = 388) 19 mmol/L 21-29 L BASE EXCESS ARTERIAL (BEAKER) (test code = 387) -3.6 mmol/L -2.0-3 .0 L PATIENT TEMPERATURE (BEAKER) (test code = 1818) 38.0 C FIO2 (BEAKER) (test code = 1819) 45.0 % RAD, CHEST, 1 VIEW, NON [id number] 16:14:00Reason for exam:->Line placementShould this be performed at the bedside?->YesFINAL REPORT Chest, portable AP view History: Line placement Comparison: 09/06/2019 IMPRESSION: Right neck central venous catheter terminates over the mid SVC. The heart is within normal limits of size. Patient status post median sternotomy. The aorta demonstrates atherosclerotic calcification. Bibasilar atelectasis is present. No pneumothorax. No sizable pleural effusion. Signed: Jose Alberto Chan MDRepmercy hospital [facility] Verified Date/Time: 09/07/2019 16:14:41 Reading Location: [address] Consult Reading Room [id number] 14:11:00* Test Item Value Reference Range Interpretation Comments PARTIAL THROMBOPLASTIN TIME (BEAKER) (test code = 760) 39.7 seconds 22.5-36.0 H Prior to initiating heparinLACTIC ACID, [id number] 14:07:00* Test Item Value Reference Range Interpretation Comments LACTATE BLOOD VENOUS (2) (BEAKER) (test code = 2872) 5.9 mmol/L 0 .5-2.2 H Assembler Hydraulic Backhoe ID - SHAUNA FSpecimen moderately ictericPlatelet [id number] 14:01:00* Test Item Value Reference Range Interpretation Comments Platelets (test code = 777-3) 80 150- 450 K/CU MM L FATIMAH (test code = FATIMAH) Assembler Hydraulic Backhoe ID - [id number] Lab Interpretation (test code = 98643-4) [facility]normal [facility] [id number] 14:01:00* Test Item Value Reference Range Interpretation Comments PLATELET COUNT (BEAKER) (test code = 756) 80 K/CU MM 150-450 L Assembler Hydraulic Backhoe ID - 6000Hemoglobin [id number] 13:50:00* Test Item Value Reference Range Interpretation Comments Hemoglobin A1C (test code = 4548-4) 6.5 % 4.3-6.1 H Lab Interpretation (test code = 00329-3) Abnormal [facility] HospitalHEMOGLOBIN [id number] 13:50:00* Test Item Value Reference Range Interpretation Comments HEMOGLOBIN A1C (BEAKER) (test code = 368) 6.5 % 4.3-6.1 H CBC W/PLT COUNT & AUTO [id number] 13:21:00* Test Item Value Reference Range Interpretation Comments WHITE BLOOD CELL COUNT (BEAKER) (test code = 775) 8.6 K/ L 3.5- 10.5 RED BLOOD CELL COUNT (BEAKER) (test code = 761) 3.51 M/ L 3.93-5 .22 L HEMOGLOBIN (BEAKER) (test code = 410) 11.6 GM/DL 11.2-15.7 HEMATOCRIT (BEAKER) (test code = 411) 34.4 % 34.1-44.9 MEAN CORPUSCULAR VOLUME (BEAKER) (test code = 753) 98.0 fL 79. 4-94.8 H MEAN CORPUSCULAR HEMOGLOBIN (BEAKER) (test code = 751) 33.0 pg 25.6-32.2 H MEAN CORPUSCULAR HEMOGLOBIN CONC (BEAKER) (test code = 752) 33.7 GM/DL 32.2-35.5 RED CELL DISTRIBUTION WIDTH (BEAKER) (test code = 412) 16.0 % 11.7-14.4 H PLATELET COUNT (BEAKER) (test code = 756) 81 K/CU MM 150-450 L MEAN PLATELET VOLUME (BEAKER) (test code = 754) 11.6 fL 9.4-12 .3 NUCLEATED RED BLOOD CELLS (BEAKER) (test code = 413) 0 /100 WBC 0 -0 (CELLAVISION MANUAL DIFF)2019-09-07 13:21:00* Test Item Value Reference Range Interpretation Comments NEUTROPHILS - REL (CELLAVISION)(BEAKER) (test code = 2816) 65 % LYMPHOCYTES - REL (CELLAVISION)(BEAKER) (test code = 2817) 2 % BANDS - REL (CELLAVISION)(BEAKER) (test code = 2826) 33 % 0 -10 H NEUTROPHILS - ABS (CELLAVISION)(BEAKER) (test code = 2830) 5.59 K/ul 1.56-6.13 LYMPHOCYTES - ABS (CELLAVISION)(BEAKER) (test code = 2831) 0.17 K/ul 1.18-3.74 L BANDS - ABS (CELLAVISION)(BEAKER) (test code = 2840) 2.84 K/uL 0 .00-0.80 H TOTAL COUNTED (BEAKER) (test code = 1351) 100 PLT MORPHOLOGY (BEAKER) (test code = 486) Normal VACUOLATED NEUTROPHILS (BEAKER) (test code = 483) Present POLYCHROMATOPHILLIC RBCS(BEAKER) (test code = 478) 1+ few ARTIFACT (CELLAVISION)(BEAKER) (test code = 3432) Present PLATELET CONCENTRATION (CELLAVISION)(BEAKER) (test code = 3438) Dec reased Assembler Hydraulic Backhoe ID - [id number] ID - Audra Rose comments: Slide comments: POCT- GLUCOSE [id number] 12:48:00* Test Item Value Reference Range Interpretation Comments POC-GLUCOSE METER (BEAKER) (test code = 1538) 206 mg/dL 70-110 H : TESTED AT [facility] [address] [facility], [address]: Assembler Hydraulic Backhoe/Student Career Development Specialist ID = [id number] for JOSE NIKKI TROPONIN [id number] 11:29:00* Test Item Value Reference Range Interpretation Comments TROPONIN I (BEAKER) (test code = 397) 1.47 ng/mL 0.00-0.03 HH Troponin I (TnI) levels must be interpreted in the context of the presenting sym ptoms and the clinical findings. Elevated TnI levels indicate myocardial damage, but are not specific for ischemic heart disease. Elevated TnI levels are seen i n patients with other cardiac conditions (including myocarditis and congestive h eart failure), and slight TnI elevations occur in patients with other conditions , including sepsis, renal failure, acidosis, acute neurological disease, and per sistent tachyarrhythmia.Assembler Hydraulic Backhoe ID Sally COLON MCOMPREHENSIVE METABOLIC PANEL 2019-09-07 11:27:00* Test Item Value Reference Range Interpretation Comments TOTAL PROTEIN (BEAKER) (test code = 770) 5.3 gm/dL 6.0-8.3 L ALBUMIN (BEAKER) (test code = 1145) 2.8 g/dL 3.5-5.0 L ALKALINE PHOSPHATASE (BEAKER) (test code = 346) 186 U/L 40-150 H BILIRUBIN TOTAL (BEAKER) (test code = 377) 8.3 mg/dL 0.2-1.2 H SODIUM (BEAKER) (test code = 381) 138 meq/L 136-145 POTASSIUM (BEAKER) (test code = 379) 3.5 meq/L 3.5-5.1 CHLORIDE (BEAKER) (test code = 382) 108 meq/L 98-107 H CO2 (BEAKER) (test code = 355) 18 meq/L 22-29 L BLOOD UREA NITROGEN (BEAKER) (test code = 354) 34 mg/dL 7-21 H CREATININE (BEAKER) (test code = 358) 1.90 mg/dL 0.57-1.25 H GLUCOSE RANDOM (BEAKER) (test code = 652) 206 mg/dL 70-105 H CALCIUM (BEAKER) (test code = 697) 8.0 mg/dL 8.4-10.2 L AST (SGOT) (BEAKER) (test code = 353) 102 U/L 5-34 H ALT (SGPT) (BEAKER) (test code = 347) 53 U/L 6-55 EGFR (BEAKER) (test code = 1092) 26 mL/min/1.73 sq m ESTIMATED GFR IS NOT ACCURATE CREATININE CLEARANCE IN PREDICTING GLOMERULAR FILTRATION RATE. ESTIMATED GFR IS NOT APPLICABLE FOR DIALYSIS PATIENTS. Assembler Hydraulic Backhoe ID Sally COLON MSpecimen moderately ictericLACTIC ACID, [id number] 11:04:00* Test Item Value Reference Range Interpretation Comments LACTATE BLOOD VENOUS (2) (BEAKER) (test code = 2872) 5.2 mmol/L 0 .5-2.2 H Assembler Hydraulic Backhoe ID Sally Luaecimen moderately ictericPOCT-GLUCOSE [id number] 09:36:00* Test Item Value Reference Range Interpretation Comments POC-GLUCOSE METER (BEAKER) (test code = 1538) 169 mg/dL 70-110 H : TESTED AT [facility] [address] [facility], [address]: Assembler Hydraulic Backhoe/Student Career Development Specialist ID = [id number] for Mindy Montenegro POCT-GLUCOSE [id number] 21:35:00* Test Item Value Reference Range Interpretation Comments POC-GLUCOSE METER (BEAKER) (test code = 1538) 142 mg/dL 70-110 H : TESTED AT [facility] [address] [facility], [address]: Assembler Hydraulic Backhoe/Student Career Development Specialist ID = [id number] for GÓMEZ GARCIA TROPONIN [id number] 20:51:00* Test Item Value Reference Range Interpretation Comments TROPONIN I (BEAKER) (test code = 397) 0.72 ng/mL 0.00-0.03 HH Troponin I (TnI) levels must be interpreted in the context of the presenting sym ptoms and the clinical findings. Elevated TnI levels indicate myocardial damage, but are not specific for ischemic heart disease. Elevated TnI levels are seen i n patients with other cardiac conditions (including myocarditis and congestive h eart failure), and slight TnI elevations occur in patients with other conditions , including sepsis, renal failure, acidosis, acute neurological disease, and per sistent tachyarrhythmia.Assembler Hydraulic Backhoe ID - ADMINB-TYPE NATRIURETIC FACTOR (BNP) 2019-09-06 20:48:00* Test Item Value Reference Range Interpretation Comments B-TYPE NATRIURETIC PEPTIDE (BEAKER) (test code = 700) 1060 pg/mL 0-100 H Assembler Hydraulic Backhoe ID - [id number] 20:47:00* Test Item Value Reference Range Interpretation Comments PARTIAL THROMBOPLASTIN TIME (BEAKER) (test code = 760) 46.2 seconds 22.5-36.0 H 6 hours after starting heparin infusion and as indicated per sliding scaleBlood Culture Panel([employer])2019-09-06 19:42:00* Test Item Value Reference Range Interpretation Comments LISTERIA MONOCYTOGENES (test code = 39299-2) Not detected Not detec chica STAPHYLOCOCCUS (test code = 06145-9) Not detected Not detected STAPHYLOCOCCUS AUREUS (test code = 53585-2) Not detected Not detect ed Streptococcus (test code = 44110-0) Detected Not detected A First line therapy: VancomycinDe-escalate based on susceptibilities Reference Range: Not Detected STREPTOCOCCUS AGALACTIAE (GROUP B) (test code = 51933-4) Not detected Not detected STREPTOCOCCUS PNEUMONIAE (test code = 97106-1) Detected Not det ected A First line therapy: CeftriaxoneIf meningitis, add vancomycin while awaiting susceptibilities Reference Range: Not Detected Streptococcus pyogenes (Group A) (test code = 96991-3) Not d etected Not detected ACINETOBACTER BAUMANNII (test code = 71542-0) Not detected Not dete cted HAEMOPHILUS INFLUENZAE (test code = 76533-7) Not detected Not detec chica NEISSERIA MENINGITIDIS (test code = 39711-4) Not detected Not detec chica ENTEROBACTERIACEAE (test code = 08071-4) Detected Not detected A ENTEROBACTER CLOACOE COMPLEX (test code = 15213-2) Detected Not detected A Enterobacter cloacae complexKPC not detected (a carbapenamase gene)First-line therapy: Cefepime or MeropenemDe-escalate based on susceptibilitiesReference Range: Not Detected KLEBSIELLA OXYTOCA (test code = 78011-9) Not detected Not detected KLEBSIELLA PNEUMONIAE (test code = 39600-0) Not detected Not detect ed PROTEUS (test code = 18174-7) SERRATIA MARCESCENS (test code = 68877-8) Not detected Not detected JAREK ALBICANS (test code = 49605-2) Not detected Not detected JAREK GLABRATA (test code = 04096-7) Not detected Not detected JAREK KRUSEI (test code = 88479-2) Not detected Not detected JAREK PARAPSILOSIS (test code = 56974-4) Not detected Not detecte d JAREK TROPICALIS (test code = 40038-0) Not detected Not detected ESCHERICHIA COLI (test code = 85546-6) Not detected Not detected METHICILLIN-RESISTANCE GENE (test code = 46139-8) VANCOMYCIN-RESISTANCE GENE (test code = 01340-7) CARBAPENEM-RESISTANCE GENE (test code = 37405-1) Not detected Not d etected ENTEROCOCCUS (test code = 54496-7) Not detected Not detected PSEUDOMONAS AERUGINOSA (test code = 12135-8) Not detected Not detec chica FATIMAH (test code = FATIMAH) Other bacteria and resistanc e markers not targeted by this PCR panel cannot be excluded; therefore clinical correlation and follow up of serology, culture results, and other molecular studies is required. The results are not intended to be used as the sole means for clinical diagnosis or patient management decisions. This sample was tested at the [facility] Molecular Diagnostics Laboratory using the JobSlot Blood Culture ID Panel. It is FDA cleared and has been verified and approved by the [facility] Molecular Diagnostics Laboratory for clinical use. This laboratory is CLIA-certified and [employer] (CAP)-accredited to perform high complexity testing. Lab Interpretation (test code = 97615-0) [facility]normal [facility] [id number] 19:42:00* Test Item Value Reference Range Interpretation Comments LISTERIA MONOCYTOGENES (test code = 3815318) Not detected Not detec chica STAPHYLOCOCCUS (test code = 1064800) Not detected Not detected STAPHYLOCOCCUS AUREUS (test code = 9558823) Not detected Not detect ed STREPTOCOCCUS (test code = 2488523) Detected Not detected A First line therapy: VancomycinDe-escalate based on susceptibilities Reference Range: Not Detected STREPTOCOCCUS AGALACTIAE (GROUP B) (test code = 3518193) Not detected Not detected STREPTOCOCCUS PNEUMONIAE (test code = 7245340) Detected Not det ected A First line therapy: CeftriaxoneIf meningitis, add vancomycin while awaiting susceptibilities Reference Range: Not Detected STREPTOCOCCUS PYOGENES (GROUP A) (test code = 1698513) Not d etected Not detected ACINETOBACTER BAUMANNII (test code = 1168904) Not detected Not dete cted HAEMOPHILUS INFLUENZAE (test code = 7216261) Not detected Not detec chica NEISSERIA MENINGITIDIS (test code = 3103894) Not detected Not detec chica ENTEROBACTERIACEAE (test code = 0604644) Detected Not detected A ENTEROBACTER CLOACOE COMPLEX (test code = 2185758) Detected Not detected A Enterobacter cloacae complexKPC not detected (a carbapenamase gene)First-line therapy: Cefepime or MeropenemDe-escalate based on susceptibilitiesReference Range: Not Detected KLEBSIELLA OXYTOCA (test code = 6723732) Not detected Not detected KLEBSIELLA PNEUMONIAE (test code = 1650) Not detected Not detected PROTEUS (test code = 3932760) SERRATIA MARCESCENS (test code = 3454913) Not detected Not detected JAREK ALBICANS (test code = 1290369) Not detected Not detected JAREK GLABRATA (test code = 0112185) Not detected Not detected JRAEK KRUSEI (test code = 1718189) Not detected Not detected JAREK PARAPSILOSIS (test code = 2106165) Not detected Not detecte d JAREK TROPICALIS (test code = 1656155) Not detected Not detected ESCHERICHIA COLI (test code = 4684679) Not detected Not detected METHICILLIN-RESISTANCE GENE (test code = 0508699) VANCOMYCIN-RESISTANCE GENE (test code = 3378760) CARBAPENEM-RESISTANCE GENE (test code = 1662392) Not detected Not d etected ENTEROCOCCUS-BEAKER (test code = 7867913) Not detected Not detected PSEUDOMONAS AERUGINOSA-BEAKER (test code = 8957361) Not detected No t detected Other bacteria and resistance markers not targeted by this PCR panel cannot be e xcluded; therefore clinical correlation and follow up of serology, culture resul ts, and other molecular studies is required. The results are not intended to be used as the sole means for clinical diagnosis or patient management decisions. T his sample was tested at the [facility] Molecular Diagnostics Laboratory using the ScribeStorm Blood Culture ID Panel. It is FDA cleared and has been verified and approved by the [facility] Molecular Diagnostics Laboratory for clinical use. Thi s laboratory is CLIA-certified and [employer] (CAP)-accred ited to perform high complexity testing.TROPONIN [id number] 19:06:00* Test Item Value Reference Range Interpretation Comments TROPONIN I (CECY) (test code = 397) 0.32 ng/mL 0.00-0.03 HH Troponin I (TnI) levels must be interpreted in the context of the presenting sym ptoms and the clinical findings. Elevated TnI levels indicate myocardial damage, but are not specific for ischemic heart disease. Elevated TnI levels are seen i n patients with other cardiac conditions (including myocarditis and congestive h eart failure), and slight TnI elevations occur in patients with other conditions , including sepsis, renal failure, acidosis, acute neurological disease, and per sistent tachyarrhythmia.Assembler Hydraulic Backhoe ID - BSPOCT-GLUCOSE [id number] 17:56:00* Test Item Value Reference Range Interpretation Comments POC-GLUCOSE METER (CECY) (test code = 1538) 183 mg/dL 70-110 H : Notified RN/MD: TESTED AT [facility] [address] [facility], [address]: Assembler Hydraulic Backhoe/Student Career Development Specialist ID = [id number] for EMILYCONCEPCION BARAHONA [id number] 17:00:00* Test Item Value Reference Range Interpretation Comments Ferritin (test code = 2276-4) 391 ng/mL 5-275 H FATIMAH (test code = FATIMAH) Assembler Hydraulic Backhoe ID - ADMIN Lab Interpretation (test code = 69547-5) [facility] 17:00:00* Test Item Value Reference Range Interpretation Comments FERRITIN (BEAKER) (test code = 361) 391 ng/mL 5-275 H Assembler Hydraulic Backhoe ID - ADMINTROPONIN [id number] 16:53:00* Test Item Value Reference Range Interpretation Comments TROPONIN I (BEAKER) (test code = 397) 0.31 ng/mL 0.00-0.03 HH Troponin I (TnI) levels must be interpreted in the context of the presenting sym ptoms and the clinical findings. Elevated TnI levels indicate myocardial damage, but are not specific for ischemic heart disease. Elevated TnI levels are seen i n patients with other cardiac conditions (including myocarditis and congestive h eart failure), and slight TnI elevations occur in patients with other conditions , including sepsis, renal failure, acidosis, acute neurological disease, and per sistent tachyarrhythmia.Assembler Hydraulic Backhoe ID - ADMINLACTIC ACID, [id number] 16:46:00* Test Item Value Reference Range Interpretation Comments LACTATE BLOOD VENOUS (2) (BEAKER) (test code = 2872) 4.1 mmol/L 0 .5-2.2 H Specimen slightly hemolyzed Assembler Hydraulic Backhoe ID - ADMINSpecimen moderately ictericIron, TIBC, % sat. (without ferritin)2019-09-06 16:39:00* Test Item Value Reference Range Interpretation Comments Iron (test code = 2498-4) 12.0 ug/dL 40-160 L TIBC (test code = 2500-7) 236 ug/dL 250-450 L Iron % Saturation (test code = 2502-3) 5 % 20-55 L FATIMAH (test code = FATIMAH) Assembler Hydraulic Backhoe ID - ADMIN Lab Interpretation (test code = 61582-3) [facility]normal [facility], % SAT. (WITHOUT FERRITIN)2019-09-06 16:39:00* Test Item Value Reference Range Interpretation Comments IRON (BEAKER) (test code = 547) 12.0 ug/dL 40.0-160.0 L TOTAL IRON BINDING CAPACITY (BEAKER) (test code = 769) 236 ug/dL 250-450 L IRON % SATURATION (2) (BEAKER) (test code = 2590) 5 % 20-5 5 L Assembler Hydraulic Backhoe ID - ADMINBASIC METABOLIC [id number] 16:37:00* Test Item Value Reference Range Interpretation Comments SODIUM (BEAKER) (test code = 381) 139 meq/L 136-145 POTASSIUM (BEAKER) (test code = 379) 4.3 meq/L 3.5-5.1 CHLORIDE (BEAKER) (test code = 382) 105 meq/L 98-107 CO2 (BEAKER) (test code = 355) 22 meq/L 22-29 BLOOD UREA NITROGEN (BEAKER) (test code = 354) 30 mg/dL 7-21 H CREATININE (BEAKER) (test code = 358) 2.06 mg/dL 0.57-1.25 H GLUCOSE RANDOM (BEAKER) (test code = 652) 219 mg/dL 70-105 H CALCIUM (BEAKER) (test code = 697) 8.7 mg/dL 8.4-10.2 EGFR (BEAKER) (test code = 1092) 23 mL/min/1.73 sq m ESTIMATED GFR IS NOT ACCURATE CREATININE CLEARANCE IN PREDICTING GLOMERULAR FILTRATION RATE. ESTIMATED GFR IS NOT APPLICABLE FOR DIALYSIS PATIENTS. Assembler Hydraulic Backhoe ID - ADMINSpecimen moderately ictericLACTIC ACID, [id number] 13:58:00* Test Item Value Reference Range Interpretation Comments LACTATE BLOOD VENOUS (2) (BEAKER) (test code = 2872) 5.1 mmol/L 0 .5-2.2 H Specimen markedly hemolyzed Assembler Hydraulic Backhoe ID - DBSpecimen moderately ictericReticulocyte [id number] 13:52:00 * Test Item Value Reference Range Interpretation Comments % Retic (test code = 71579-9) 5.3 % 0.5-1.7 H FATIMAH (test code = FATIMAH) Assembler Hydraulic Backhoe ID - [id number] Lab Interpretation (test code = 57535-0) Abnormal [facility] HospitalRETICULOCYTE [id number] 13:52:00* Test Item Value Reference Range Interpretation Comments RETICULOCYTE COUNT PCT (BEAKER) (test code = 575) 5.3 % 0.5- 1.7 H Assembler Hydraulic Backhoe ID - 6000POCT-GLUCOSE [id number] 13:47:00* Test Item Value Reference Range Interpretation Comments POC-GLUCOSE METER (BEAKER) (test code = 1538) 213 mg/dL 70-110 H : TESTED AT [facility] [address] [facility], [address]: Assembler Hydraulic Backhoe/Student Career Development Specialist ID = [id number] for BOBY SAINZ Sodium, random [id number] 13:20:00* Test Item Value Reference Range Interpretation Comments Sodium Urine (test code = 2955-3) 58 meq/L FATIMAH (test code = FATIMAH) Reference Range: No NormalsOperator ID - DB [facility] HospitalCREATININE, RANDOM [id number] 13:20:00* Test Item Value Reference Range Interpretation Comments CREATININE URINE (BEAKER) (test code = 375) 116.6 mg/dL Reference Range: No NormalsOperator ID - DBSODIUM, RANDOM [id number] 13:20:00* Test Item Value Reference Range Interpretation Comments SODIUM URINE (BEAKER) (test code = 243) 58 meq/L Reference Range: No NormalsOperator ID - DBTROPONIN [id number] 12:36:00* Test Item Value Reference Range Interpretation Comments TROPONIN I (BEAKER) (test code = 397) 0.20 ng/mL 0.00-0.03 HH Troponin I (TnI) levels must be interpreted in the context of the presenting sym ptoms and the clinical findings. Elevated TnI levels indicate myocardial damage, but are not specific for ischemic heart disease. Elevated TnI levels are seen i n patients with other cardiac conditions (including myocarditis and congestive h eart failure), and slight TnI elevations occur in patients with other conditions , including sepsis, renal failure, acidosis, acute neurological disease, and per sistent tachyarrhythmia.Assembler Hydraulic Backhoe ID - DBTROPONIN [id number] 11:58:00* Test Item Value Reference Range Interpretation Comments TROPONIN I (BEAKER) (test code = 397) 0.14 ng/mL 0.00-0.03 H Troponin I (TnI) levels must be interpreted in the context of the presenting sym ptoms and the clinical findings. Elevated TnI levels indicate myocardial damage, but are not specific for ischemic heart disease. Elevated TnI levels are seen i n patients with other cardiac conditions (including myocarditis and congestive h eart failure), and slight TnI elevations occur in patients with other conditions , including sepsis, renal failure, acidosis, acute neurological disease, and per sistent tachyarrhythmia.Assembler Hydraulic Backhoe ID - [id number] 11:40:00* Test Item Value Reference Range Interpretation Comments Procalcitonin (test code = 72159-7) 39.98 ng/mL <0.05 HH FATIMAH (test code = FATIMAH) SEPSIS RISK (ng/mL)Low: 0.05-0.50Intermediate: 0.51-2.00High: >=2.01 Lab Interpretation (test code = 41595-2) Abnormal [facility] H[id number] 11:40:00* Test Item Value Reference Range Interpretation Comments PROCALCITONIN (BEAKER) (test code = 3036) 39.98 ng/mL <0.05 HH SEPSIS RISK (ng/mL)Low: 0.05-0.50Intermediate: 0.51-2.00High: > =2.01CT, [id number] 10:46:00Reason for exam:->pancreatic tumorWhat is the patient's sedation requirement?->No SedationFINAL REPORT TECHNIQUE: CT of the abdomen and pelvis WITHOUT intravenous contrast and WITHOUT oral contrast. Dose modulation, iterative reconstruction, and/or weight- based adjustment of the mA/kV was utilized to [...] prominence. Layering hyperdensity in the gallbladder, likely sludge.SPLEEN: The spleen is prominent measures 13.5 cm in the craniocaudal dimension.PANCREAS: No significant change in fullness of the pancreatic head, consistent with the previously described mass, with atrophy and ductal dilatation up to 0.7 cm in the upstream pancreas. ADRENALS: No adrenal nodules.KIDNEYS/URETERS: No hydron ephrosis, stones, or solid mass lesions.PELVIC ORGANS/BLADDER: The bladder is de compressed by Boogie catheter. Air within the bladder lumen, likely related to ca theterization. Prior hysterectomy. No adnexal mass. PERITONEUM/RETROPERITONEUM: No free air or fluid.LYMPH NODES: No significant change in size of the prominent portacaval lymph node measures 1.5 cm.VESSELS: Atherosclerotic vascular calcifi cations in the abdominal aorta and branch vessels. Infrarenal abdominal aortic a neurysm measures up to approximately 2.8 cm in diameter. GI TRACT: No distention or wall thickening. Scattered colonic diverticula. Normal appendix. BONES AND S OFT TISSUES: Degenerative changes of the visualized spine. Age-indeterminate mil d compression deformity of the T12 vertebral body with Schmorl's node formation and without retropulsion. Foci of fat stranding and air in the subcutaneous fat of the right anterior abdominal wall, likely related to recent medication inject ions. IMPRESSION:No significant change in the pancreatic head mass. Interval pl acement of a metallic stent in the common duct. Persistent mild intrahepatic marcia iary ductal prominence. This finding may be correlated with liver function tests to exclude cholestasis. No significant change in the prominent periportal lymph node. Metastasis cannot be excluded. Age-indeterminate mild compression deformi ty of T12 without retropulsion. Infrarenal abdominal aortic aneurysm measures 2. 8 cm in diameter. A follow-up examination is recommended every 5 years. Signed: Manda Sanders MDReport Verified Date/Time: 09/06/2019 10:46:13 Reading Locat ion: [facility] B1 C013Y CT Body Reading Room abdomen pelvis without [id number] 10:46:00Interface, External Ris In - 09/06/2019 10:48 AM CSTFINAL REPORT TECHNIQUE: CT of the abdomen and [...] prominence. Layering hyperdensity in the gallbladder, likely sludge.SPLEEN: The spleen is prominent measures 13.5 cm in the craniocaudal dimension.PANCREAS: No significant change in fullness of the pancreatic head, consistent with the previously described mass, with atrophy and ductal dilatation up to 0.7 cm in the upstream pancreas. ADRENALS: No adrenal nodules.KIDNEYS/URETERS: No hydronephrosis, stones, or solid mass lesions.PELVIC ORGANS/BLADDER: The bladder is decompressed by Boogie catheter. Air within the bladder lumen, likely related to catheterization. Prior hysterectomy. No adnexal mass. PERITONEUM/RETROPERITONEUM: No free air or fluid.LYMPH NODES: No significant change in size of the prominent portacaval lymph node measures 1.5 cm.VESSELS: Atherosclerotic vascular calcifications in the abdominal aorta and branch vessels. Infrarenal abdominal aortic aneurysm measures up to appro ximately 2.8 cm in diameter. GI TRACT: No distention or wall thickening. Scatter ed colonic diverticula. Normal appendix. BONES AND SOFT TISSUES: Degenerative ch anges of the visualized spine. Age-indeterminate mild compression deformity of t he T12 vertebral body with Schmorl's node formation and without retropulsion. Fo ci of fat stranding and air in the subcutaneous fat of the right anterior abdomi nal wall, likely related to recent medication injections. IMPRESSION:No signifi cant change in the pancreatic head mass. Interval placement of a metallic stent in the common duct. Persistent mild intrahepatic biliary ductal prominence. This finding may be correlated with liver function tests to exclude cholestasis. No significant change in the prominent periportal lymph node. Metastasis cannot be excluded. Age-indeterminate mild compression deformity of T12 without retropulsi on. Infrarenal abdominal aortic aneurysm measures 2.8 cm in diameter. A follow- up examination is recommended every 5 years. Signed: Manda Sanders Date/Time: 09/06/2019 10:46:13 Reading Location: [facility] B1 C013Y CT Body Re ading Room 1 0:46 AM [facility] CenterLACT[facility] ACID, [id number] 10:23:00* Test Item Value Reference Range Interpretation Comments LACTATE BLOOD VENOUS (2) (BEAKER) (test code = 2872) 4.5 mmol/L 0 .5-2.2 H Specimen moderately hemolyzed Assembler Hydraulic Backhoe ID - DBSpecimen moderately ictericLACTIC ACID, [id number] 07:25:00* Test Item Value Reference Range Interpretation Comments LACTATE BLOOD VENOUS (2) (BEAKER) (test code = 2872) 3.9 mmol/L 0 .5-2.2 H Specimen slightly hemolyzed Assembler Hydraulic Backhoe ID - DBSpecimen moderately ictericBASIC METABOLIC [id number] 05:58:00* Test Item Value Reference Range Interpretation Comments SODIUM (BEAKER) (test code = 381) 137 meq/L 136-145 POTASSIUM (BEAKER) (test code = 379) 3.3 meq/L 3.5-5.1 L CHLORIDE (BEAKER) (test code = 382) 106 meq/L 98-107 CO2 (BEAKER) (test code = 355) 16 meq/L 22-29 L BLOOD UREA NITROGEN (BEAKER) (test code = 354) 26 mg/dL 7-21 H CREATININE (BEAKER) (test code = 358) 2.13 mg/dL 0.57-1.25 H GLUCOSE RANDOM (BEAKER) (test code = 652) 245 mg/dL 70-105 H CALCIUM (BEAKER) (test code = 697) 8.7 mg/dL 8.4-10.2 EGFR (BEAKER) (test code = 1092) 22 mL/min/1.73 sq m ESTIMATED GFR IS NOT ACCURATE CREATININE CLEARANCE IN PREDICTING GLOMERULAR FILTRATION RATE. ESTIMATED GFR IS NOT APPLICABLE FOR DIALYSIS PATIENTS. Assembler Hydraulic Backhoe ID - DBSpecimen moderately ictericKetones, [id number] 05:49:00* Test Item Value Reference Range Interpretation Comments Ketones, Blood (test code = 1103) 0.2 mmol/L <0.4 Lab Interpretation (test code = 61456-5) Normal [facility] CenterKETONE, [id number] 05:49:00* Test Item Value Reference Range Interpretation Comments KETONES, BLOOD (BEAKER) (test code = 1103) 0.2 mmol/L <0.4 POCT-GLUCOSE [id number] 05:15:00* Test Item Value Reference Range Interpretation Comments POC-GLUCOSE METER (BEAKER) (test code = 1538) 254 mg/dL 70-110 H : TESTED AT [facility] [address] [facility], [address]: Assembler Hydraulic Backhoe/Student Career Development Specialist ID = [id number] for RAND DAVID BASIC METABOLIC [id number] 03:29:00* Test Item Value Reference Range Interpretation Comments SODIUM (BEAKER) (test code = 381) 137 meq/L 136-145 POTASSIUM (BEAKER) (test code = 379) 3.8 meq/L 3.5-5.1 CHLORIDE (BEAKER) (test code = 382) 101 meq/L 98-107 CO2 (BEAKER) (test code = 355) 21 meq/L 22-29 L BLOOD UREA NITROGEN (BEAKER) (test code = 354) 28 mg/dL 7-21 H CREATININE (BEAKER) (test code = 358) 2.04 mg/dL 0.57-1.25 H GLUCOSE RANDOM (BEAKER) (test code = 652) 328 mg/dL 70-105 H CALCIUM (BEAKER) (test code = 697) 9.5 mg/dL 8.4-10.2 EGFR (BEAKER) (test code = 1092) 24 mL/min/1.73 sq m ESTIMATED GFR IS NOT ACCURATE CREATININE CLEARANCE IN PREDICTING GLOMERULAR FILTRATION RATE. ESTIMATED GFR IS NOT APPLICABLE FOR DIALYSIS PATIENTS. Assembler Hydraulic Backhoe ID - JOY MSpecimen moderately ictericUrinalysis w/Microscopic 2019-09-06 03:25:00* Test Item Value Reference Range Interpretation Comments Color, UA (test code = 5778-6) [place] Clarity, UA (test code = 5767-9) Hazy Specific Kulm, UA (test code = 5811-5) 1.019 1.001-1.035 pH, UA (test code = 5803-2) 6.0 5.0-8.0 Protein, UA (test code = 22296-7) 50 mg/dL Negative A Glucose, UA (test code = 365) 30 mg/dL Negative A Ketones, UA (test code = 2514-8) Negative Negative Bilirubin, UA (test code = 15468-2) Positive Negative A Blood, UA (test code = 66488-8) Trace Negative A Nitrite, UA (test code = 5802-4) Negative Negative Leukocytes, UA (test code = 5799-2) Negative Negative Urobilinogen, UA (test code = 22059-0) 3.0 mg/dL 0.2-1 H RBC, UA (test code = 49026-3) 21 /HPF WBC, UA (test code = 5821-4) 10 /HPF Squam Epithel, UA (test code = 07385-6) 4 /HPF Granular Casts, UA (test code = 5793-5) 5 /LPF Amorphous Crystals (test code = 18990-0) Few Specimen Source (test code = 2795) FATIMAH (test code = FATIMAH) Assembler Hydraulic Backhoe ID - [auto]Assembler Hydraulic Backhoe ID - tech Lab Interpretation (test code = 09675-4) Abnormal [facility] W/ [id number] 03:25:00* Test Item Value Reference Range Interpretation Comments COLOR (BEAKER) (test code = 470) [place] CLARITY (BEAKER) (test code = 469) Hazy SPECIFIC GRAVITY UA (BEAKER) (test code = 468) 1.019 1.001-1 .035 PH UA (BEAKER) (test code = 467) 6.0 5.0-8.0 PROTEIN UA (BEAKER) (test code = 464) 50 mg/dL Negative A GLUCOSE UA (BEAKER) (test code = 365) 30 mg/dL Negative A KETONES UA (BEAKER) (test code = 371) Negative Negative BILIRUBIN UA (BEAKER) (test code = 462) Positive Negative A BLOOD UA (BEAKER) (test code = 461) Trace Negative A NITRITE UA (BEAKER) (test code = 465) Negative Negative LEUKOCYTE ESTERASE UA (BEAKER) (test code = 466) Negative Negat harvey UROBILINOGEN UA (BEAKER) (test code = 463) 3.0 mg/dL 0.2-1.0 H RBC UA (BEAKER) (test code = 519) 21 /HPF WBC UA (BEAKER) (test code = 520) 10 /HPF SQUAMOUS EPITHELIAL (BEAKER) (test code = 516) 4 /HPF GRANULAR CASTS (BEAKER) (test code = 515) 5 /LPF AMORPHOUS CRYSTALS (BEAKER) (test code = 1584) Few SOURCE(BEAKER) (test code = 2795) Assembler Hydraulic Backhoe ID - [auto]Assembler Hydraulic Backhoe ID - techCBC W/PLT COUNT & AUTO DIFFERENTIAL 2019-09-06 02:26:00* Test Item Value Reference Range Interpretation Comments WHITE BLOOD CELL COUNT (BEAKER) (test code = 775) 6.7 K/ L 3.5- 10.5 RED BLOOD CELL COUNT (BEAKER) (test code = 761) 3.69 M/ L 3.93-5 .22 L HEMOGLOBIN (BEAKER) (test code = 410) 12.1 GM/DL 11.2-15.7 HEMATOCRIT (BEAKER) (test code = 411) 35.4 % 34.1-44.9 MEAN CORPUSCULAR VOLUME (BEAKER) (test code = 753) 95.9 fL 79. 4-94.8 H MEAN CORPUSCULAR HEMOGLOBIN (BEAKER) (test code = 751) 32.8 pg 25.6-32.2 H MEAN CORPUSCULAR HEMOGLOBIN CONC (BEAKER) (test code = 752) 34.2 GM/DL 32.2-35.5 RED CELL DISTRIBUTION WIDTH (BEAKER) (test code = 412) 16.2 % 11.7-14.4 H PLATELET COUNT (BEAKER) (test code = 756) 156 K/CU MM 150-450 MEAN PLATELET VOLUME (BEAKER) (test code = 754) 10.1 fL 9.4-12 .3 NUCLEATED RED BLOOD CELLS (BEAKER) (test code = 413) 0 /100 WBC 0 -0 NEUTROPHILS RELATIVE PERCENT (BEAKER) (test code = 429) 89 % LYMPHOCYTES RELATIVE PERCENT (BEAKER) (test code = 430) 7 % MONOCYTES RELATIVE PERCENT (BEAKER) (test code = 431) 3 % EOSINOPHILS RELATIVE PERCENT (BEAKER) (test code = 432) 0 % BASOPHILS RELATIVE PERCENT (BEAKER) (test code = 437) 0 % NEUTROPHILS ABSOLUTE COUNT (BEAKER) (test code = 670) 5.96 K/ L 1.56-6.13 LYMPHOCYTES ABSOLUTE COUNT (BEAKER) (test code = 414) 0.48 K/ L 1.18-3.74 L MONOCYTES ABSOLUTE COUNT (BEAKER) (test code = 415) 0.18 K/ L 0. 24-0.36 L EOSINOPHILS ABSOLUTE COUNT (BEAKER) (test code = 416) 0.00 K/ L 0.04-0.36 L BASOPHILS ABSOLUTE COUNT (BEAKER) (test code = 417) 0.01 K/ L 0. 01-0.08 IMMATURE GRANULOCYTES-RELATIVE PERCENT (BEAKER) (test code = 2801) 1 % 0-1 PT/[id number] 02:16:00* Test Item Value Reference Range Interpretation Comments PROTIME (BEAKER) (test code = 759) 14.4 seconds 11.9-14.2 H INR (BEAKER) (test code = 370) 1.2 <=5.9 PARTIAL THROMBOPLASTIN TIME (BEAKER) (test code = 760) 30.1 seconds 22.5-36.0 Effective 12/07/2018: PT Reference Range ChangeNew: 11.9-14.2 Previous: 11.7-14. 7RECOMMENDED COUMADIN/WARFARIN INR THERAPY RANGESSTANDARD DOSE: 2.0-3.0 Include s: PROPHYLAXIS for venous thrombosis, systemic embolization; TREATMENT for venou s thrombosis and/or pulmonary embolus.HIGH RISK: Target INR is 2.5-3.5 for patie nts wiht mechanical heart valves.[id number] 02:05:00* Test Item Value Reference Range Interpretation Comments Ammonia (test code = 62744-5) 55 18- 72 mol/L FATIMAH (test code = FATIMAH) Assembler Hydraulic Backhoe ID - JOY M Lab Interpretation (test code = 29057-8) Normal [facility]MONIA2020-02-26 02:05:00* Test Item Value Reference Range Interpretation Comments AMMONIA (BEAKER) (test code = 348) 55 mol/L 18-72 Assembler Hydraulic Backhoe ID - JOY MKETONE, [id number] 01:58:00* Test Item Value Reference Range Interpretation Comments KETONES, BLOOD (BEAKER) (test code = 1103) 0.6 mmol/L <0.4 H TROPONIN [id number] 01:41:00* Test Item Value Reference Range Interpretation Comments TROPONIN I (BEAKER) (test code = 397) 0.12 ng/mL 0.00-0.03 H Troponin I (TnI) levels must be interpreted in the context of the presenting sym ptoms and the clinical findings. Elevated TnI levels indicate myocardial damage, but are not specific for ischemic heart disease. Elevated TnI levels are seen i n patients with other cardiac conditions (including myocarditis and congestive h eart failure), and slight TnI elevations occur in patients with other conditions , including sepsis, renal failure, acidosis, acute neurological disease, and per sistent tachyarrhythmia.Assembler Hy[employer]ulic Backhoe ID - JOY MCardiac Enzymes - [id number] 01:35:00* Test Item Value Reference Range Interpretation Comments Total CK (test code = 2157-6) 66 U/L 29-200 FATIMAH (test code = FATIMAH) Assembler [employer]ulic Backhoe ID - JOY M Lab Interpretation (test code = 63727-6) Normal [facility]2019-09-06 01:35:00* Test Item Value Reference Range Interpretation Comments CREATINE KINASE TOTAL (BEAKER) (test code = 380) 66 U/L 29-20 0 [employer]sembler [employer]ulic Backhoe ID - JOY MHEPATIC FUNCTION [id number] 01:35:00* Test Item Value Reference Range Interpretation Comments TOTAL PROTEIN (BEAKER) (test code = 770) 7.1 gm/dL 6.0-8.3 Specimen moderately hemolyzed ALBUMIN (BEAKER) (test code = 1145) 3.7 g/dL 3.5-5.0 Specimen moderately hemolyzed BILIRUBIN TOTAL (BEAKER) (test code = 377) 9.3 mg/dL 0.2-1.2 H Specimen moderately hemolyzed BILIRUBIN DIRECT (BEAKER) (test code = 706) 5.8 mg/dL 0.1-0.5 H Specimen moderately hemolyzed ALKALINE PHOSPHATASE (BEAKER) (test code = 346) 368 U/L 40-150 H AST (SGOT) (BEAKER) (test code = 353) 251 U/L 5-34 H Specimen moderately hemolyzed ALT (SGPT) (BEAKER) (test code = 347) 79 U/L 6-55 H Specimen moderately hemolyzed Assembler Hy[employer]ulic Backhoe ID - JOY MSpecimen moderately [id number] 01:35:00* Test Item Value Reference Range Interpretation Comments LIPASE (BEAKER) (test code = 749) 49 U/L 8-78 Assembler [employer]ulic [employer]hoe ID - JOY MSpecimen moderately ictericRAD, PELVIS, 1 OR 2 VIEWS 2019-09-06 01:15:00Reason for exam:->FALLShould this be performed at the bedside?->YesFINAL REPORT RAD, PELVIS, 1 OR 2 VIEWS [...] bilateral buttock granulomas. IMPRESSION: No displaced pelvic fracture.Degenerative changes as described. Signed: Mateo Archer Verified Date/Time: 09/06/2019 01:15:07 pelvis 1 or 2 [id number] 01:15:00Interface, External Ris In - 09/06/2019 1:17 AM CSTFINAL REPORT RAD, PELVIS, 1 OR 2 VIEWS [...] bilateral buttock granulomas. IMPRESSION: No displaced pelvic fracture.Degenerative changes as described. Signed: Mateo Archer Verified Date/Time: 0 09/06/2019 01:15:07 Electronically signed by: MATEO ARCHER MD on 01:15 AM [facility], 1 VIEW, NON DEPT 2019-09-06 01:08:00Reason for exam:->FALLShould this be performed at the bedside?->YesFINAL REPORT Chest one view. Clinical history: FALL Comparison: Chest radiograph 08/22/2008. Technique: A single frontal view of the chest was obtained. Findings: The patient is status post median sternotomy.The heart is mildly enlarged. The aorta is atherosclerotic.There is no focal pulmonary consolidation, pleural effusion or pneumothorax. There is no pulmonary edema. The bony thorax is demineralized. There are degenerative changes of the visualized spine. Impression:Mild cardiomegaly.No pulmonary edema or focal pulmonary consolidation. Signed: Mateo Archer MDReport Verified Date/Time: 09/06/2019 01:08:33 ICAL CARE 2019-09-06 00:47:47Julien Krishna MD 09/06/2019 4:20 AMCritical CarePerformed by: Julien Krishna MDAuthorized by: Julien Krishna MD Total critical care time: 40 minutesCritical care time was exclusive of separately billable procedures and treating other patients.Critical care was necessary to treat or prevent imminent or life-threatening deterioration of the following conditions: metabolic crisis and endocrine crisis.Critical care was time spent personally by me on the following activities: review of old charts, re-evaluation of patient's condition, pulse oximetry, ordering and review of laboratory studies, ordering and review of radiographic studies, ordering and performing treatments and interventions, evaluation of patient's response to treatment, development of treatment plan with patient or surrogate and examination of patient. [facility] 2019-09-06 00:47:47Julien Krishna MD 09/06/2019 4:20 AMECG/EKG InterpretationDate/Time: 09/06/2019 1:28 AMPerformed by: Julien Krishna MDAuthorized by: Julien Krishna MD The ECG was interpreted by ED physician. This ECG was not compared with previous ECG(s).The ECG is interpreted as sinus rhythm. Rate is normal rate. Alpha is left. Clinical Impression: non- specific ECGECG reviewed and does not meet STEMI criteria. Patient tolerance: Patient tolerated the procedure well with no immediate complications [facility] CenterCT, BRAIN, WITHOUT [id number] 23:41:00Reason for exam:->FALLWhat is the patient's sedation requirement?->No SedationFINAL REPORT EXAM: CT head without contrast. CLINICAL HISTORY: Head trauma, minor (Age > 65y). Fall. COMPARISON: CT head 08/22/2008. TECHNIQUE: CT images of the head were obtained without intravenous contrast. This exam was performed according to our departmental dose optimization program which includes automated exposure control, adjustment of the mA and/or kV according to patient's size and/or use of iterative reconstructive technique. FINDINGS:There is generalized parenchymal atrophy. There are mild white matter microvascular ischemic changes. There is intracranial calcific atherosclerosis.There is no acute intracranial hemorrhage, extra-axial fluid [...] intracranial hemorrhage or calvarial fracture. Signed: Mateo Archer [facility] Verified Date/Time: 09/05/2019 23:41:42 brain without IV [id number] 23:41:00Interface, External Ris In - 09/05/2019 11:43 PM CSTFINAL REPORT EXAM: CT head without contrast. CLINICAL HISTORY: Head trauma, minor (Age > 67y). Fall. COMPARISON: CT head 08/22/2008. TECHNIQUE: CT images of the head were obtained without intravenous contrast. This exam was performed according to our departmental dose optimization program which includes automated exposure cont rol, adjustment of the mA and/or kV according to patient's size and/or use of it erative reconstructive technique. FINDINGS:There is generalized parenchymal atro phy. There are mild white matter microvascular ischemic changes. There is intrac ranial calcific atherosclerosis.There is no acute intracranial hemorrhage, extra -axial fluid collection, mass effect, herniation, hydrocephalus or large demarca chica acute territorial infarct. The basal cisterns are patent. There is a right lens prosthesis. The left orbit is unremarkable. The visualized paranasal sinus es and tympanomastoid cavities are clear. The skull base and calvarium are inta ct. IMPRESSION: Mild white matter microvascular ischemic changes. No acute intr acranial hemorrhage or calvarial fracture. Signed: Mateo Archer Verif ied Date/Time: 09/05/2019 23:41:42 [facility] CenterFL, ERCP 2019-08-23 07:25:00Reason for exam:->JaundiceFINAL REPORT A fluoroscopic unit was utilized for a procedure performed in the operating room. No interpretation was requested. Please refer to the operative report regarding findings. Please refer to PACS for patient radiation dose information. Signed: JR Valente Robert MDReport Verified Date/Time: 08/23/2019 07:25:48 Reading Location: [facility] Reading Room ERCP 2019-08-23 07:25:00Interface, External Ris In - 08/23/2019 7:27 AM CSTFINAL REPORT A fluoroscopic unit was utilized for a procedure performed in the operating room. No interpretation was requested. Please refer to the operative report regarding findings. Please refer to PACS for patient radiation dose information. Signed: JR Valente Robert MDReport Verified Date/Time: 08/23/2019 07:25:48 Reading Location: [facility] Radiology Reading Room [facility] CenterFINE NEEDLE ASPIRATE (FNA) REQUEST 2019-08-21 11:00:00* Test Item Value Reference Range Interpretation Comments Cytology (test code = 2629) See Separate Report [facility] CenterFIN NEEDLE ASPIRATE (FNA) [id number] 11:00:00* Test Item Value Reference Range Interpretation Comments CYTOLOGY RESULT POINTER (BEAKER) (test code = 2629) See Separate Re port POCT-GLUCOSE [id number] 12:04:00* Test Item Value Reference Range Interpretation Comments POC-GLUCOSE METER (BEAKER) (test code = 1538) 156 mg/dL 70-110 H : TESTED AT [facility] [address] [place], [address]: Assembler Hydraulic Backhoe/Student Career Development Specialist ID = [id number] for LOLA AYALA COMPREHENSIVE METABOLIC [id number] 07:14:00* Test Item Value Reference Range Interpretation Comments TOTAL PROTEIN (BEAKER) (test code = 770) 5.9 gm/dL 6.0-8.3 L Specimen slightly hemolyzed ALBUMIN (BEAKER) (test code = 1145) 2.9 g/dL 3.5-5.0 L Specimen slightly hemolyzed ALKALINE PHOSPHATASE (BEAKER) (test code = 346) 511 U/L 40-150 H BILIRUBIN TOTAL (BEAKER) (test code = 377) 6.0 mg/dL 0.2-1.2 H Specimen slightly hemolyzed SODIUM (BEAKER) (test code = 381) 142 meq/L 136-145 POTASSIUM (BEAKER) (test code = 379) 3.6 meq/L 3.5-5.1 Specimen slightly hemolyzed CHLORIDE (BEAKER) (test code = 382) 110 meq/L 98-107 H CO2 (BEAKER) (test code = 355) 22 meq/L 22-29 BLOOD UREA NITROGEN (BEAKER) (test code = 354) 10 mg/dL 7-21 CREATININE (BEAKER) (test code = 358) 1.01 mg/dL 0.57-1.25 Specimen slightly hemolyzed GLUCOSE RANDOM (BEAKER) (test code = 652) 154 mg/dL 70-105 H CALCIUM (BEAKER) (test code = 697) 8.5 mg/dL 8.4-10.2 AST (SGOT) (BEAKER) (test code = 353) 79 U/L 5-34 H Specimen slightly hemolyzed ALT (SGPT) (BEAKER) (test code = 347) 32 U/L 6-55 Specimen slightly hemolyzed EGFR (BEAKER) (test code = 1092) 53 mL/min/1.73 sq m ESTIMATED GFR IS NOT ACCURATE CREATININE CLEARANCE IN PREDICTING GLOMERULAR FILTRATION RATE. ESTIMATED GFR IS NOT APPLICABLE FOR DIALYSIS PATIENTS. Assembler Hydraulic Backhoe ID - JOY MSpecimen moderately ictericHEPATIC FUNCTION [id number] 07:14:00* Test Item Value Reference Range Interpretation Comments TOTAL PROTEIN (BEAKER) (test code = 770) 5.9 gm/dL 6.0-8.3 L Specimen slightly hemolyzed ALBUMIN (BEAKER) (test code = 1145) 2.9 g/dL 3.5-5.0 L Specimen slightly hemolyzed BILIRUBIN TOTAL (BEAKER) (test code = 377) 6.0 mg/dL 0.2-1.2 H Specimen slightly hemolyzed BILIRUBIN DIRECT (BEAKER) (test code = 706) 4.2 mg/dL 0.1-0.5 H Specimen slightly hemolyzed ALKALINE PHOSPHATASE (BEAKER) (test code = 346) 511 U/L 40-150 H AST (SGOT) (BEAKER) (test code = 353) 79 U/L 5-34 H Specimen slightly hemolyzed ALT (SGPT) (BEAKER) (test code = 347) 32 U/L 6-55 Specimen slightly hemolyzed Assembler Hydraulic Backhoe ID - JOY MSpecimen moderately ictericCBC W/PLT COUNT & AUTO [id number] 05:35:00* Test Item Value Reference Range Interpretation Comments WHITE BLOOD CELL COUNT (BEAKER) (test code = 775) 6.3 K/ L 3.5- 10.5 RED BLOOD CELL COUNT (BEAKER) (test code = 761) 3.54 M/ L 3.93-5 .22 L HEMOGLOBIN (BEAKER) (test code = 410) 11.6 GM/DL 11.2-15.7 HEMATOCRIT (BEAKER) (test code = 411) 36.2 % 34.1-44.9 MEAN CORPUSCULAR VOLUME (BEAKER) (test code = 753) 102.3 fL 79. 4-94.8 H MEAN CORPUSCULAR HEMOGLOBIN (BEAKER) (test code = 751) 32.8 pg 25.6-32.2 H MEAN CORPUSCULAR HEMOGLOBIN CONC (BEAKER) (test code = 752) 32.0 GM/DL 32.2-35.5 L RED CELL DISTRIBUTION WIDTH (BEAKER) (test code = 412) 15.6 % 11.7-14.4 H PLATELET COUNT (BEAKER) (test code = 756) 170 K/CU MM 150-450 MEAN PLATELET VOLUME (BEAKER) (test code = 754) 11.0 fL 9.4-12 .3 NUCLEATED RED BLOOD CELLS (BEAKER) (test code = 413) 0 /100 WBC 0 -0 NEUTROPHILS RELATIVE PERCENT (BEAKER) (test code = 429) 56 % LYMPHOCYTES RELATIVE PERCENT (BEAKER) (test code = 430) 35 % MONOCYTES RELATIVE PERCENT (BEAKER) (test code = 431) 7 % EOSINOPHILS RELATIVE PERCENT (BEAKER) (test code = 432) 1 % BASOPHILS RELATIVE PERCENT (BEAKER) (test code = 437) 1 % NEUTROPHILS ABSOLUTE COUNT (BEAKER) (test code = 670) 3.51 K/ L 1.56-6.13 LYMPHOCYTES ABSOLUTE COUNT (BEAKER) (test code = 414) 2.23 K/ L 1.18-3.74 MONOCYTES ABSOLUTE COUNT (BEAKER) (test code = 415) 0.45 K/ L 0. 24-0.36 H EOSINOPHILS ABSOLUTE COUNT (BEAKER) (test code = 416) 0.09 K/ L 0.04-0.36 BASOPHILS ABSOLUTE COUNT (BEAKER) (test code = 417) 0.04 K/ L 0. 01-0.08 IMMATURE GRANULOCYTES-RELATIVE PERCENT (BEAKER) (test code = 2801) 0 % 0-1 POCT-GLUCOSE [id number] 20:54:00* Test Item Value Reference Range Interpretation Comments POC-GLUCOSE METER (BEAKER) (test code = 1538) 187 mg/dL 70-110 H : TESTED AT [address], [address]: Assembler Hydraulic Backhoe/Student Career Development Specialist ID = [id number] for BRIANNE PAULINOA POCT-GLUCOSE [id number] 16:46:00* Test Item Value Reference Range Interpretation Comments POC-GLUCOSE METER (BEAKER) (test code = 1538) 111 mg/dL 70-110 H : TESTED AT [address], [address]: Assembler Hydraulic Backhoe/Student Career Development Specialist ID = [id number] for JAMIE, LOLA POCT-GLUCOSE [id number] 11:47:00* Test Item Value Reference Range Interpretation Comments POC-GLUCOSE METER (BEAKER) (test code = 1538) 112 mg/dL 70-110 H : TESTED AT [address], [address]: Assembler Hydraulic Backhoe/Student Career Development Specialist ID = [id number] for JAMIE, LOLA POCT-GLUCOSE [id number] 08:15:00* Test Item Value Reference Range Interpretation Comments POC-GLUCOSE METER (BEAKER) (test code = 1538) 133 mg/dL 70-110 H : TESTED AT [facility] [address] [place], [address]: Assembler Hydraulic Backhoe/Student Career Development Specialist ID = [id number] for LOLA AYALA COMPREHENSIVE METABOLIC [id number] 06:43:00* Test Item Value Reference Range Interpretation Comments TOTAL PROTEIN (BEAKER) (test code = 770) 5.7 gm/dL 6.0-8.3 L ALBUMIN (BEAKER) (test code = 1145) 2.9 g/dL 3.5-5.0 L ALKALINE PHOSPHATASE (BEAKER) (test code = 346) 536 U/L 40-150 H BILIRUBIN TOTAL (BEAKER) (test code = 377) 8.9 mg/dL 0.2-1.2 H SODIUM (BEAKER) (test code = 381) 141 meq/L 136-145 POTASSIUM (BEAKER) (test code = 379) 3.6 meq/L 3.5-5.1 CHLORIDE (BEAKER) (test code = 382) 110 meq/L 98-107 H CO2 (BEAKER) (test code = 355) 23 meq/L 22-29 BLOOD UREA NITROGEN (BEAKER) (test code = 354) 11 mg/dL 7-21 CREATININE (BEAKER) (test code = 358) 0.99 mg/dL 0.57-1.25 GLUCOSE RANDOM (BEAKER) (test code = 652) 126 mg/dL 70-105 H CALCIUM (BEAKER) (test code = 697) 8.7 mg/dL 8.4-10.2 AST (SGOT) (BEAKER) (test code = 353) 105 U/L 5-34 H ALT (SGPT) (BEAKER) (test code = 347) 36 U/L 6-55 EGFR (BEAKER) (test code = 1092) 54 mL/min/1.73 sq m ESTIMATED GFR IS NOT ACCURATE CREATININE CLEARANCE IN PREDICTING GLOMERULAR FILTRATION RATE. ESTIMATED GFR IS NOT APPLICABLE FOR DIALYSIS PATIENTS. Assembler Hydraulic Backhoe ID - JOY MSpecimen moderately ictericCBC W/PLT COUNT & AUTO [id number] 05:37:00* Test Item Value Reference Range Interpretation Comments WHITE BLOOD CELL COUNT (BEAKER) (test code = 775) 7.2 K/ L 3.5- 10.5 RED BLOOD CELL COUNT (BEAKER) (test code = 761) 3.52 M/ L 3.93-5 .22 L HEMOGLOBIN (BEAKER) (test code = 410) 11.3 GM/DL 11.2-15.7 HEMATOCRIT (BEAKER) (test code = 411) 35.5 % 34.1-44.9 MEAN CORPUSCULAR VOLUME (BEAKER) (test code = 753) 100.9 fL 79. 4-94.8 H MEAN CORPUSCULAR HEMOGLOBIN (BEAKER) (test code = 751) 32.1 pg 25.6-32.2 MEAN CORPUSCULAR HEMOGLOBIN CONC (BEAKER) (test code = 752) 31.8 GM/DL 32.2-35.5 L RED CELL DISTRIBUTION WIDTH (BEAKER) (test code = 412) 15.6 % 11.7-14.4 H PLATELET COUNT (BEAKER) (test code = 756) 193 K/CU MM 150-450 MEAN PLATELET VOLUME (BEAKER) (test code = 754) 11.0 fL 9.4-12 .3 NUCLEATED RED BLOOD CELLS (BEAKER) (test code = 413) 0 /100 WBC 0 -0 NEUTROPHILS RELATIVE PERCENT (BEAKER) (test code = 429) 62 % LYMPHOCYTES RELATIVE PERCENT (BEAKER) (test code = 430) 30 % MONOCYTES RELATIVE PERCENT (BEAKER) (test code = 431) 6 % EOSINOPHILS RELATIVE PERCENT (BEAKER) (test code = 432) 1 % BASOPHILS RELATIVE PERCENT (BEAKER) (test code = 437) 1 % NEUTROPHILS ABSOLUTE COUNT (BEAKER) (test code = 670) 4.47 K/ L 1.56-6.13 LYMPHOCYTES ABSOLUTE COUNT (BEAKER) (test code = 414) 2.15 K/ L 1.18-3.74 MONOCYTES ABSOLUTE COUNT (BEAKER) (test code = 415) 0.44 K/ L 0. 24-0.36 H EOSINOPHILS ABSOLUTE COUNT (BEAKER) (test code = 416) 0.05 K/ L 0.04-0.36 BASOPHILS ABSOLUTE COUNT (BEAKER) (test code = 417) 0.05 K/ L 0. 01-0.08 IMMATURE GRANULOCYTES-RELATIVE PERCENT (BEAKER) (test code = 2801) 0 % 0-1 POCT-GLUCOSE [id number] 20:55:00* Test Item Value Reference Range Interpretation Comments POC-GLUCOSE METER (CECY) (test code = 1538) 189 mg/dL 70-110 H : TESTED AT [facility] [address] [facility], [address]: Assembler Hydraulic Backhoe/Student Career Development Specialist ID = [id number] for LORENA GARCIA MR, ABDOMEN, [id number] 11:16:00Request MRCP with and without IV contrast FINAL REPORT TECHNIQUE: MRI of the abdomen and MRCP WITHO UT intravenous contrast. 3-D volume reconstructions were obtained to evaluate th e biliary ductal system. INDICATION: Biliary obstruction [id number] yo with michelle vated liver enzymes and ultrasound showing gallbladder mass and dilated pancreat ic duct. COMPARISON: Abdominal ultrasound abdomen-pelvis CT 04/06/2007. FINDINGS : ABSENCE OF INTRAVENOUS CONTRAST DECREASES SENSITIVITY FOR DETECTION OF FOCAL L ESIONS AND VASCULAR PATHOLOGY. LOWER THORAX: Unremarkable. LIVER: No hepatic sig nal abnormality. No focal hepatic lesions. Fernie's lobe.BILIARY: Diffuse intrah epatic and extrahepatic ductal dilatation with upper up to narrowing at the dist al CBD at the level of pancreatic head. No intraluminal stones. Maximum CBD domenic frank measure 1.6 cm. Gallbladder is distended with length of 10.4 cm and axial we ight of 4.3 cm. The gallbladder wall is mildly thickened. No cholelithiasis. Slu dge layers in the gallbladder. SPLEEN: 15.1 cm splenomegaly. Splenule present.PA NCREAS: Diffuse lobulated dilation of the main pancreatic duct with abrupt narro wing at the level of pancreatic head/proximal body. Maximum caliber of 0.5 cm. T he mass in the pancreatic head measures 4.3 x 3.4 x 3.1 cm. This appears to enca se and narrow the main portal vein. No other vessels are definitely involved. Ho wever, evaluation is suboptimal without the use of intravenous contrast. Diffuse pancreatic parenchymal atrophy of the body and tail. Multiple distended branch ducts which communicate with the distended main pancreatic duct as above. ADRENA LS: No adrenal nodules.KIDNEYS/URETERS: No hydronephrosis or solid mass lesions. Simple cysts in the right kidney measure up to 0.9 cm in the interpolar region. PERITONEUM/RETROPERITONEUM: No free fluid.LYMPH NODES: Prominent lymph nodes in the portacaval region immediately posterior to the mass are slightly heterogene ous and measure up to 1.6 cm in short axis dimension. There is likely a prominen t lymph node immediately anterior to the left hepatic lobe which restricts on di ffusion-weighted imaging. This is most likely a normal/reactive lymph node.VESSE LS: Unremarkable. Specifically, patent portal vein, splenic vein and artery. GI TRACT: No distention or wall thickening. BONES AND SOFT TISSUES: Prior median st ernotomy. IMPRESSION: 1.Diffuse dilation of main pancreatic duct and common marcia e duct with abrupt narrowing at the pancreatic head associated with a mass which measures up to 4.3 cm. This is most concerning for pancreatic adenocarcinoma. T he main portal vein appears to be encased. Evaluation for involvement of other v asculature is suboptimal given the lack of intravenous contrast. 2.The lymph nod es in the peripancreatic region are mildly enlarged and indeterminate. These cou ld be reactive or metastatic. 3.The gallbladder distention is likely due to the common bile duct obstruction. The mild gallbladder wall thickening may be reacti ve. No cholelithiasis or choledocholithiasis. 4.Mild splenomegaly. Signed: Rafi Sultana MDReport Verified Date/Time: 08/17/2019 11:16:03 Reading Location: [address] Body Reading Room Electronically signed by: MD ben FOX 08/17/2019 11:16 AM MR abdomen without IV contrast [id number] 11:16:00 Interface, External Ris In - 08/17/2019 11:18 AM CSTFINAL REPORT PATIENT ID: [id number] TECHNIQUE: MRI of the abdomen and MRCP WITHOUT intravenous contrast. 3-D volume reconstructions were obtained to evaluate the biliary ductal system. IND ICATION: Biliary obstruction [id number] yo with elevated liver enzymes and ultr asound showing gallbladder mass and dilated pancreatic duct. COMPARISON: Abdomin al ultrasound abdomen-pelvis CT 04/06/2007. FINDINGS: ABSENCE OF INTRAVENOUS CON TRAST DECREASES SENSITIVITY FOR DETECTION OF FOCAL LESIONS AND VASCULAR PATHOLOG Y. LOWER THORAX: Unremarkable. LIVER: No hepatic signal abnormality. No focal he patic lesions. Fernie's lobe.BILIARY: Diffuse intrahepatic and extrahepatic duct al dilatation with upper up to narrowing at the distal CBD at the level of pancr eatic head. No intraluminal stones. Maximum CBD caliber measure 1.6 cm. Gallblad herve is distended with length of 10.4 cm and axial weight of 4.3 cm. The gallblad herve wall is mildly thickened. No cholelithiasis. Sludge layers in the gallbladde r. SPLEEN: 15.1 cm splenomegaly. Splenule present.PANCREAS: Diffuse lobulated di lation of the main pancreatic duct with abrupt narrowing at the level of pancrea tic head/proximal body. Maximum caliber of 0.5 cm. The mass in the pancreatic he ad measures 4.3 x 3.4 x 3.1 cm. This appears to encase and narrow the main germán l vein. No other vessels are definitely involved. However, evaluation is subopti mal without the use of intravenous contrast. Diffuse pancreatic parenchymal atro phy of the body and tail. Multiple distended branch ducts which communicate with the distended main pancreatic duct as above. ADRENALS: No adrenal nodules.KIDNE YS/URETERS: No hydronephrosis or solid mass lesions. Simple cysts in the right k idney measure up to 0.9 cm in the interpolar region. PERITONEUM/RETROPERITONEUM: No free fluid.LYMPH NODES: Prominent lymph nodes in the portacaval region immed iately posterior to the mass are slightly heterogeneous and measure up to 1.6 cm in short axis dimension. There is likely a prominent lymph node immediately ant erior to the left hepatic lobe which restricts on diffusion-weighted imaging. Th is is most likely a normal/reactive lymph node.VESSELS: Unremarkable. Specifical ly, patent portal vein, splenic vein and artery. GI TRACT: No distention or wall thickening. BONES AND SOFT TISSUES: Prior median sternotomy. IMPRESSION: 1.Dif fuse dilation of main pancreatic duct and common bile duct with abrupt narrowing at the pancreatic head associated with a mass which measures up to 4.3 cm. This is most concerning for pancreatic adenocarcinoma. The main portal vein appears to be encased. Evaluation for involvement of other vasculature is suboptimal giv en the lack of intravenous contrast. 2.The lymph nodes in the peripancreatic reg ion are mildly enlarged and indeterminate. These could be reactive or metastatic . 3.The gallbladder distention is likely due to the common bile duct obstruction . The mild gallbladder wall thickening may be reactive. No cholelithiasis or cho ledocholithiasis. 4.Mild splenomegaly. Signed: Rafi Sultana MDReport Verified Date /Time: 08/17/2019 11:16:03 Reading Location: [facility] B1 C013Y CT Body Reading [facility] [id number] 10:20:00* Test Item Value Reference Range Interpretation Comments POC-GLUCOSE METER (BEAKER) (test code = 1538) 142 mg/dL 70-110 H : TESTED AT [facility] [address] [facility], [address]: Assembler Hydraulic Backhoe/Student Career Development Specialist ID = [id number] for Lin Mixon COMPREHENSIVE METABOLIC [id number] 05:45:00* Test Item Value Reference Range Interpretation Comments TOTAL PROTEIN (BEAKER) (test code = 770) 5.6 gm/dL 6.0-8.3 L ALBUMIN (BEAKER) (test code = 1145) 2.8 g/dL 3.5-5.0 L ALKALINE PHOSPHATASE (BEAKER) (test code = 346) 528 U/L 40-150 H BILIRUBIN TOTAL (BEAKER) (test code = 377) 10.2 mg/dL 0.2-1.2 H SODIUM (BEAKER) (test code = 381) 137 meq/L 136-145 POTASSIUM (BEAKER) (test code = 379) 3.5 meq/L 3.5-5.1 CHLORIDE (BEAKER) (test code = 382) 107 meq/L 98-107 CO2 (BEAKER) (test code = 355) 22 meq/L 22-29 BLOOD UREA NITROGEN (BEAKER) (test code = 354) 11 mg/dL 7-21 CREATININE (BEAKER) (test code = 358) 0.95 mg/dL 0.57-1.25 GLUCOSE RANDOM (BEAKER) (test code = 652) 143 mg/dL 70-105 H CALCIUM (BEAKER) (test code = 697) 8.5 mg/dL 8.4-10.2 AST (SGOT) (BEAKER) (test code = 353) 101 U/L 5-34 H ALT (SGPT) (BEAKER) (test code = 347) 34 U/L 6-55 EGFR (BEAKER) (test code = 1092) 57 mL/min/1.73 sq m ESTIMATED GFR IS NOT ACCURATE CREATININE CLEARANCE IN PREDICTING GLOMERULAR FILTRATION RATE. ESTIMATED GFR IS NOT APPLICABLE FOR DIALYSIS PATIENTS. Assembler Hydraulic Backhoe ID - PIAYA LSpecimen moderately ictericCBC W/PLT COUNT & AUTO [id number] 04:52:00* Test Item Value Reference Range Interpretation Comments WHITE BLOOD CELL COUNT (BEAKER) (test code = 775) 6.7 K/ L 3.5- 10.5 RED BLOOD CELL COUNT (BEAKER) (test code = 761) 3.57 M/ L 3.93-5 .22 L HEMOGLOBIN (BEAKER) (test code = 410) 11.2 GM/DL 11.2-15.7 HEMATOCRIT (BEAKER) (test code = 411) 35.9 % 34.1-44.9 MEAN CORPUSCULAR VOLUME (BEAKER) (test code = 753) 100.6 fL 79. 4-94.8 H MEAN CORPUSCULAR HEMOGLOBIN (BEAKER) (test code = 751) 31.4 pg 25.6-32.2 MEAN CORPUSCULAR HEMOGLOBIN CONC (BEAKER) (test code = 752) 31.2 GM/DL 32.2-35.5 L RED CELL DISTRIBUTION WIDTH (BEAKER) (test code = 412) 15.4 % 11.7-14.4 H PLATELET COUNT (BEAKER) (test code = 756) 177 K/CU MM 150-450 MEAN PLATELET VOLUME (BEAKER) (test code = 754) 10.7 fL 9.4-12 .3 NUCLEATED RED BLOOD CELLS (BEAKER) (test code = 413) 0 /100 WBC 0 -0 NEUTROPHILS RELATIVE PERCENT (BEAKER) (test code = 429) 69 % LYMPHOCYTES RELATIVE PERCENT (BEAKER) (test code = 430) 24 % MONOCYTES RELATIVE PERCENT (BEAKER) (test code = 431) 6 % EOSINOPHILS RELATIVE PERCENT (BEAKER) (test code = 432) 1 % BASOPHILS RELATIVE PERCENT (BEAKER) (test code = 437) 0 % NEUTROPHILS ABSOLUTE COUNT (BEAKER) (test code = 670) 4.63 K/ L 1.56-6.13 LYMPHOCYTES ABSOLUTE COUNT (BEAKER) (test code = 414) 1.58 K/ L 1.18-3.74 MONOCYTES ABSOLUTE COUNT (BEAKER) (test code = 415) 0.41 K/ L 0. 24-0.36 H EOSINOPHILS ABSOLUTE COUNT (BEAKER) (test code = 416) 0.05 K/ L 0.04-0.36 BASOPHILS ABSOLUTE COUNT (BEAKER) (test code = 417) 0.03 K/ L 0. 01-0.08 IMMATURE GRANULOCYTES-RELATIVE PERCENT (BEAKER) (test code = 2801) 0 % 0-1 PT/[id number] 22:30:00* Test Item Value Reference Range Interpretation Comments PROTIME (BEAKER) (test code = 759) 13.3 seconds 11.9-14.2 INR (BEAKER) (test code = 370) 1.0 <=5.9 PARTIAL THROMBOPLASTIN TIME (BEAKER) (test code = 760) 27.7 seconds 22.5-36.0 Effective 12/07/2018: PT Reference Range ChangeNew: 11.9-14.2 Previous: 11.7-14. 7RECOMMENDED COUMADIN/WARFARIN INR THERAPY RANGESSTANDARD DOSE: 2.0-3.0 Include s: PROPHYLAXIS for venous thrombosis, systemic embolization; TREATMENT for venou s thrombosis and/or pulmonary embolus.HIGH RISK: Target INR is 2.5-3.5 for patie nts wiht mechanical heart valves.COMPREHENSIVE METABOLIC [id number] 22:30:00* Test Item Value Reference Range Interpretation Comments TOTAL PROTEIN (BEAKER) (test code = 770) 6.5 gm/dL 6.0-8.3 ALBUMIN (BEAKER) (test code = 1145) 3.3 g/dL 3.5-5.0 L ALKALINE PHOSPHATASE (BEAKER) (test code = 346) 612 U/L 40-150 H BILIRUBIN TOTAL (BEAKER) (test code = 377) 13.9 mg/dL 0.2-1.2 H SODIUM (BEAKER) (test code = 381) 135 meq/L 136-145 L POTASSIUM (BEAKER) (test code = 379) 3.4 meq/L 3.5-5.1 L CHLORIDE (BEAKER) (test code = 382) 101 meq/L 98-107 CO2 (BEAKER) (test code = 355) 22 meq/L 22-29 BLOOD UREA NITROGEN (BEAKER) (test code = 354) 12 mg/dL 7-21 CREATININE (BEAKER) (test code = 358) 0.97 mg/dL 0.57-1.25 GLUCOSE RANDOM (BEAKER) (test code = 652) 197 mg/dL 70-105 H CALCIUM (BEAKER) (test code = 697) 9.0 mg/dL 8.4-10.2 AST (SGOT) (BEAKER) (test code = 353) 123 U/L 5-34 H ALT (SGPT) (BEAKER) (test code = 347) 40 U/L 6-55 EGFR (BEAKER) (test code = 1092) 56 mL/min/1.73 sq m ESTIMATED GFR IS NOT ACCURATE CREATININE CLEARANCE IN PREDICTING GLOMERULAR FILTRATION RATE. ESTIMATED GFR IS NOT APPLICABLE FOR DIALYSIS PATIENTS. Assembler [employer]draulic Backhoe ID - DBSpecimen markedly ictericCBC W/PLT COUNT & AUTO DIFFERENTIAL 2019-08-16 22:12:00* Test Item Value Reference Range Interpretation Comments WHITE BLOOD CELL COUNT (BEAKER) (test code = 775) 7.4 K/ L 3.5- 10.5 RED BLOOD CELL COUNT (BEAKER) (test code = 761) 3.94 M/ L 3.93-5 .22 HEMOGLOBIN (BEAKER) (test code = 410) 12.6 GM/DL 11.2-15.7 HEMATOCRIT (BEAKER) (test code = 411) 39.7 % 34.1-44.9 MEAN CORPUSCULAR VOLUME (BEAKER) (test code = 753) 100.8 fL 79. 4-94.8 H MEAN CORPUSCULAR HEMOGLOBIN (BEAKER) (test code = 751) 32.0 pg 25.6-32.2 MEAN CORPUSCULAR HEMOGLOBIN CONC (BEAKER) (test code = 752) 31.7 GM/DL 32.2-35.5 L RED CELL DISTRIBUTION WIDTH (BEAKER) (test code = 412) 15.5 % 11.7-14.4 H PLATELET COUNT (BEAKER) (test code = 756) 174 K/CU MM 150-450 MEAN PLATELET VOLUME (BEAKER) (test code = 754) 10.7 fL 9.4-12 .3 NUCLEATED RED BLOOD CELLS (BEAKER) (test code = 413) 0 /100 WBC 0 -0 NEUTROPHILS RELATIVE PERCENT (BEAKER) (test code = 429) 71 % LYMPHOCYTES RELATIVE PERCENT (BEAKER) (test code = 430) 21 % MONOCYTES RELATIVE PERCENT (BEAKER) (test code = 431) 6 % EOSINOPHILS RELATIVE PERCENT (BEAKER) (test code = 432) 1 % BASOPHILS RELATIVE PERCENT (BEAKER) (test code = 437) 0 % NEUTROPHILS ABSOLUTE COUNT (BEAKER) (test code = 670) 5.29 K/ L 1.56-6.13 LYMPHOCYTES ABSOLUTE COUNT (BEAKER) (test code = 414) 1.59 K/ L 1.18-3.74 MONOCYTES ABSOLUTE COUNT (BEAKER) (test code = 415) 0.44 K/ L 0. 24-0.36 H EOSINOPHILS ABSOLUTE COUNT (BEAKER) (test code = 416) 0.04 K/ L 0.04-0.36 BASOPHILS ABSOLUTE COUNT (BEAKER) (test code = 417) 0.02 K/ L 0. 01-0.08 IMMATURE GRANULOCYTES-RELATIVE PERCENT (BEAKER) (test code = 2801) 1 % 0-1 POCT-GLUCOSE [id number] 21:25:00* Test Item Value Reference Range Interpretation Comments POC-GLUCOSE METER (BEAKER) (test code = 1538) 187 mg/dL 70-110 H : TESTED AT [address], [address]: Assembler Hydraulic Backhoe/Student Career Development Specialist ID = [id number] for LORENA GARCIA POCT-GLUCOSE [id number] 18:50:00* Test Item Value Reference Range Interpretation Comments POC-GLUCOSE METER (BEAKER) (test code = 1538) 113 mg/dL 70-110 H : TESTED AT [address], [address]: Assembler Hydraulic Backhoe/Student Career Development Specialist ID = [id number] for WILFREDO ENRIQUE POCT-GLUCOSE [id number] 11:56:00* Test Item Value Reference Range Interpretation Comments POC-GLUCOSE METER (BEAKER) (test code = 1538) 369 mg/dL 70-110 H Notified BRENDA CORTEZ/TESTED AT [address] [address] HEMOGLOBIN [id number] 11:51:00* Test Item Value Reference Range Interpretation Comments HEMOGLOBIN A1C (BEAKER) (test code = 368) 14.8 % 4.3-6.1 H POCT-GLUCOSE [id number] 08:28:00* Test Item Value Reference Range Interpretation Comments POC-GLUCOSE METER (BEAKER) (test code = 1538) 267 mg/dL 70-110 H TESTED AT [address] [address] [id number] 07:24:00* Test Item Value Reference Range Interpretation Comments PHOSPHORUS (BEAKER) (test code = 604) 2.6 mg/dL 2.3-4.7 [id number] 07:24:00* Test Item Value Reference Range Interpretation Comments MAGNESIUM (BEAKER) (test code = 627) 2.0 mg/dL 1.6-2.6 BASIC METABOLIC [id number] 07:24:00* Test Item Value Reference Range Interpretation Comments SODIUM (BEAKER) (test code = 381) 138 meq/L 136-145 POTASSIUM (BEAKER) (test code = 379) 4.1 meq/L 3.5-5.1 CHLORIDE (BEAKER) (test code = 382) 109 meq/L 98-107 H CO2 (BEAKER) (test code = 355) 22 meq/L 22-29 BLOOD UREA NITROGEN (BEAKER) (test code = 354) 13 mg/dL 7-21 CREATININE (BEAKER) (test code = 358) 1.02 mg/dL 0.57-1.25 GLUCOSE RANDOM (BEAKER) (test code = 652) 267 mg/dL 70-105 H CALCIUM (BEAKER) (test code = 697) 8.6 mg/dL 8.4-10.2 EGFR (BEAKER) (test code = 1092) 53 mL/min/1.73 sq m ESTIMATED GFR IS NOT ACCURATE CREATININE CLEARANCE IN PREDICTING GLOMERULAR FILTRATION RATE. ESTIMATED GFR IS NOT APPLICABLE FOR DIALYSIS PATIENTS. CREATINE KINASE (CK), TOTAL AND [id number] 07:24:00* Test Item Value Reference Range Interpretation Comments CREATINE KINASE TOTAL (BEAKER) (test code = 380) 39 U/L 29-20 0 CREATINE KINASE-MB (BEAKER) (test code = 750) 1.2 ng/mL 0.0-6.6 CREATINE KINASE-MB INDEX (BEAKER) (test code = 395) 3.1 % Effective 05/29/2014: CK-MB Reference Range ChangeNew: 0.0-6.6 Previous: 0.0- 4.9CK-MB Reference Range:<6.7 Normal6.7-10.0 Borderline>10.0 Abnormal TROPONIN [id number] 07:11:00* Test Item Value Reference Range Interpretation Comments TROPONIN I (BEAKER) (test code = 397) < ng/mL 0.00-0.03 Effective 05/29/2014: Reference Range ChangeNew: 0.00-0.03 Previous 0.00-0.15T roponin I (TnI) levels must be interpreted in the context of the presenting symp toms and the clinical findings. Elevated TnI levels indicate myocardial damage, but are not specific for ischemic heart disease. Elevated TnI levels are seen in patients with other cardiac conditions (including myocarditis and congestive he art failure), and slight TnI elevations occur in patients with other conditions, including sepsis, renal failure, acidosis, acute neurological disease, and pers istent tachyarrhythmia.POCT-GLUCOSE [id number] 21:38:00* Test Item Value Reference Range Interpretation Comments POC-GLUCOSE METER (BEAKER) (test code = 1538) 322 mg/dL 70-110 H Notified BRENDA CORTEZ/TESTED AT [address] [address] POCT-GLUCOSE [id number] 17:17:00* Test Item Value Reference Range Interpretation Comments POC-GLUCOSE METER (BEAKER) (test code = 1538) 266 mg/dL 70-110 H TESTED AT [address] [address] BASIC METABOLIC [id number] 15:42:00* Test Item Value Reference Range Interpretation Comments SODIUM (BEAKER) (test code = 381) 137 meq/L 136-145 POTASSIUM (BEAKER) (test code = 379) 4.1 meq/L 3.5-5.1 CHLORIDE (BEAKER) (test code = 382) 106 meq/L 98-107 CO2 (BEAKER) (test code = 355) 21 meq/L 22-29 L BLOOD UREA NITROGEN (BEAKER) (test code = 354) 14 mg/dL 7-21 CREATININE (BEAKER) (test code = 358) 1.17 mg/dL 0.57-1.25 GLUCOSE RANDOM (BEAKER) (test code = 652) 372 mg/dL 70-105 H CALCIUM (BEAKER) (test code = 697) 8.6 mg/dL 8.4-10.2 EGFR (BEAKER) (test code = 1092) 45 mL/min/1.73 sq m ESTIMATED GFR IS NOT ACCURATE CREATININE CLEARANCE IN PREDICTING GLOMERULAR FILTRATION RATE. ESTIMATED GFR IS NOT APPLICABLE FOR DIALYSIS PATIENTS. CREATINE KINASE (CK), TOTAL AND [id number] 15:27:00* Test Item Value Reference Range Interpretation Comments CREATINE KINASE TOTAL (BEAKER) (test code = 380) 51 U/L 29-20 0 CREATINE KINASE-MB (BEAKER) (test code = 750) 1.6 ng/mL 0.0-6.6 CREATINE KINASE-MB INDEX (BEAKER) (test code = 395) 3.1 % Effective 05/29/2014: CK-MB Reference Range ChangeNew: 0.0-6.6 Previous: 0.0- 4.9CK-MB Reference Range:<6.7 Normal6.7-10.0 Borderline>10.0 Abnormal TROPONIN [id number] 15:27:00* Test Item Value Reference Range Interpretation Comments TROPONIN I (BEAKER) (test code = 397) 0.01 ng/mL 0.00-0.03 Effective 05/29/2014: Reference Range ChangeNew: 0.00-0.03 Previous 0.00-0.15T roponin I (TnI) levels must be interpreted in the context of the presenting symp toms and the clinical findings. Elevated TnI levels indicate myocardial damage, but are not specific for ischemic heart disease. Elevated TnI levels are seen in patients with other cardiac conditions (including myocarditis and congestive he art failure), and slight TnI elevations occur in patients with other conditions, including sepsis, renal failure, acidosis, acute neurological disease, and pers istent tachyarrhythmia.CBC W/PLT COUNT & AUTO [id number] 14:49:00* Test Item Value Reference Range Interpretation Comments WHITE BLOOD CELL COUNT (BEAKER) (test code = 775) 6.6 K/ L 4.0- 10.0 RED BLOOD CELL COUNT (BEAKER) (test code = 761) 3.99 M/ L 4.00-5 .00 L HEMOGLOBIN (BEAKER) (test code = 410) 13.1 GM/DL 12.0-15.0 HEMATOCRIT (BEAKER) (test code = 411) 37.5 % 36.0-45.0 MEAN CORPUSCULAR VOLUME (BEAKER) (test code = 753) 94.1 fL 82. 0-99.0 MEAN CORPUSCULAR HEMOGLOBIN (BEAKER) (test code = 751) 32.8 pg 27.0-33.0 MEAN CORPUSCULAR HEMOGLOBIN CONC (BEAKER) (test code = 752) 34.9 GM/DL 32.0-36.0 RED CELL DISTRIBUTION WIDTH (BEAKER) (test code = 412) 14.1 % 10.3-14.2 PLATELET COUNT (BEAKER) (test code = 756) 210 K/CU MM 150-430 MEAN PLATELET VOLUME (BEAKER) (test code = 754) 6.7 fL 6.5-10 .5 NUCLEATED RED BLOOD CELLS (BEAKER) (test code = 413) 0 /100 WBC 0 -0 NEUTROPHILS RELATIVE PERCENT (BEAKER) (test code = 429) 54 % LYMPHOCYTES RELATIVE PERCENT (BEAKER) (test code = 430) 36 % MONOCYTES RELATIVE PERCENT (BEAKER) (test code = 431) 7 % EOSINOPHILS RELATIVE PERCENT (BEAKER) (test code = 432) 2 % BASOPHILS RELATIVE PERCENT (BEAKER) (test code = 437) 1 % NEUTROPHILS ABSOLUTE COUNT (BEAKER) (test code = 670) 3.55 K/ L 1.80-8.00 LYMPHOCYTES ABSOLUTE COUNT (BEAKER) (test code = 414) 2.41 K/ L 1.48-4.50 MONOCYTES ABSOLUTE COUNT (BEAKER) (test code = 415) 0.45 K/ L 0. 00-1.30 EOSINOPHILS ABSOLUTE COUNT (BEAKER) (test code = 416) 0.16 K/ L 0.00-0.50 BASOPHILS ABSOLUTE COUNT (BEAKER) (test code = 417) 0.05 K/ L 0. 00-0.20 0.00URINALYSIS W/ REFLEX URINE [id number] 13:22:00* Test Item Value Reference Range Interpretation Comments COLOR (BEAKER) (test code = 470) Light Yellow CLARITY (BEAKER) (test code = 469) Clear SPECIFIC GRAVITY UA (BEAKER) (test code = 468) 1.015 1.001-1 .035 PH UA (BEAKER) (test code = 467) 5.0 5.0-8.0 PROTEIN UA (BEAKER) (test code = 464) Negative Negative GLUCOSE UA (BEAKER) (test code = 365) >1000 mg/dL Negative A KETONES UA (BEAKER) (test code = 371) Negative Negative BILIRUBIN UA (BEAKER) (test code = 462) Negative Negative BLOOD UA (BEAKER) (test code = 461) Negative Negative NITRITE UA (BEAKER) (test code = 465) Negative Negative LEUKOCYTE ESTERASE UA (BEAKER) (test code = 466) Negative Negat harvey UROBILINOGEN UA (BEAKER) (test code = 463) 0.2 mg/dL 0.2-1.0 RBC UA (BEAKER) (test code = 519) < /HPF WBC UA (BEAKER) (test code = 520) 2 /HPF MUCUS (BEAKER) (test code = 1574) Rare SQUAMOUS EPITHELIAL (BEAKER) (test code = 516) 1 /HPF SOURCE(BEAKER) (test code = 2795) POCT-GLUCOSE [id number] 13:02:00* Test Item Value Reference Range Interpretation Comments POC-GLUCOSE METER (BEAKER) (test code = 1538) 367 mg/dL 70-110 H Notified BRENDA CORTEZ/TESTED AT [facility] [address] [facility] [address] URINALYSIS WITHOUT [id number] 09:00:00* Test Item Value Reference Range Interpretation Comments COLOR (BEAKER) (test code = 470) Light Yellow CLARITY (BEAKER) (test code = 469) Clear SPECIFIC GRAVITY UA (BEAKER) (test code = 468) 1.010 1.001-1 .035 PH UA (BEAKER) (test code = 467) 5.0 5.0-8.0 PROTEIN UA (BEAKER) (test code = 464) 30 mg/dL Negative A GLUCOSE UA (BEAKER) (test code = 365) >1000 mg/dL Negative A KETONES UA (BEAKER) (test code = 371) Negative Negative BILIRUBIN UA (BEAKER) (test code = 462) Negative Negative BLOOD UA (BEAKER) (test code = 461) Negative Negative NITRITE UA (BEAKER) (test code = 465) Negative Negative LEUKOCYTE ESTERASE UA (BEAKER) (test code = 466) Negative Negat harvey UROBILINOGEN UA (BEAKER) (test code = 463) 0.2 mg/dL 0.2-1.0 SOURCE(BEAKER) (test code = 2795) POCT-GLUCOSE [id number] 08:09:00* Test Item Value Reference Range Interpretation Comments POC-GLUCOSE METER (BEAKER) (test code = 1538) 375 mg/dL 70-110 H Notified BRENDA CORTEZ/TESTED AT [facility] [address] [facility] [address] POCT-GLUCOSE [id number] 04:30:00* Test Item Value Reference Range Interpretation Comments POC-GLUCOSE METER (BEAKER) (test code = 1538) 410 mg/dL 70-110 HH TESTED AT [address] [address] BASIC METABOLIC [id number] 03:58:00* Test Item Value Reference Range Interpretation Comments SODIUM (BEAKER) (test code = 381) 136 meq/L 136-145 POTASSIUM (BEAKER) (test code = 379) 3.6 meq/L 3.5-5.1 CHLORIDE (BEAKER) (test code = 382) 108 meq/L 98-107 H CO2 (BEAKER) (test code = 355) 18 meq/L 22-29 L BLOOD UREA NITROGEN (BEAKER) (test code = 354) 18 mg/dL 7-21 CREATININE (BEAKER) (test code = 358) 1.11 mg/dL 0.57-1.25 GLUCOSE RANDOM (BEAKER) (test code = 652) 225 mg/dL 70-105 H CALCIUM (BEAKER) (test code = 697) 8.4 mg/dL 8.4-10.2 EGFR (BEAKER) (test code = 1092) 48 mL/min/1.73 sq m ESTIMATED GFR IS NOT ACCURATE CREATININE CLEARANCE IN PREDICTING GLOMERULAR FILTRATION RATE. ESTIMATED GFR IS NOT APPLICABLE FOR DIALYSIS PATIENTS. BLOOD GAS, [id number] 02:41:00* Test Item Value Reference Range Interpretation Comments PH VENOUS (BEAKER) (test code = 701) 7.37 7.32-7.42 PCO2 VENOUS (BEAKER) (test code = 755) 44 mmHg 41-51 PO2 VENOUS (BEAKER) (test code = 702) 40 mmHg 25-40 O2 SATURATION VENOUS (BEAKER) (test code = 703) 73.0 % 40.0-7 0.0 H HCO3 VENOUS (BEAKER) (test code = 705) 25 mmol/L 21-29 BASE EXCESS VENOUS (BEAKER) (test code = 704) -0.8 mmol/L -2.0-3.0 PATIENT TEMPERATURE (BEAKER) (test code = 1818) 37.0 C FIO2 (BEAKER) (test code = 1819) 21.0 % BASIC METABOLIC [id number] 02:13:00* Test Item Value Reference Range Interpretation Comments SODIUM (BEAKER) (test code = 381) 132 meq/L 136-145 L POTASSIUM (BEAKER) (test code = 379) 5.3 meq/L 3.5-5.1 H Specimen moderately hemolyzed CHLORIDE (BEAKER) (test code = 382) 100 meq/L 98-107 CO2 (BEAKER) (test code = 355) 18 meq/L 22-29 L BLOOD UREA NITROGEN (BEAKER) (test code = 354) 20 mg/dL 7-21 CREATININE (BEAKER) (test code = 358) 1.50 mg/dL 0.57-1.25 H Specimen moderately hemolyzed GLUCOSE RANDOM (BEAKER) (test code = 652) 489 mg/dL 70-105 HH CALCIUM (BEAKER) (test code = 697) 9.1 mg/dL 8.4-10.2 EGFR (BEAKER) (test code = 1092) 34 mL/min/1.73 sq m ESTIMATED GFR IS NOT ACCURATE CREATININE CLEARANCE IN PREDICTING GLOMERULAR FILTRATION RATE. ESTIMATED GFR IS NOT APPLICABLE FOR DIALYSIS PATIENTS. TROPONIN [id number] 02:04:00* Test Item Value Reference Range Interpretation Comments TROPONIN I (BEAKER) (test code = 397) 0.01 ng/mL 0.00-0.03 Effective 05/29/2014: Reference Range ChangeNew: 0.00-0.03 Previous 0.00-0.15T roponin I (TnI) levels must be interpreted in the context of the presenting symp toms and the clinical findings. Elevated TnI levels indicate myocardial damage, but are not specific for ischemic heart disease. Elevated TnI levels are seen in patients with other cardiac conditions (including myocarditis and congestive he art failure), and slight TnI elevations occur in patients with other conditions, including sepsis, renal failure, acidosis, acute neurological disease, and pers istent tachyarrhythmia.OSMOLALITY, [id number] 02:01:00* Test Item Value Reference Range Interpretation Comments OSMOLALITY, SERUM (BEAKER) (test code = 615) 312 mOsm/kg 275-295 H [id number] 01:57:00* Test Item Value Reference Range Interpretation Comments MAGNESIUM (BEAKER) (test code = 627) 2.8 mg/dL 1.6-2.6 H Specimen moderately hemolyzed [id number] 01:57:00* Test Item Value Reference Range Interpretation Comments PHOSPHORUS (BEAKER) (test code = 604) 3.0 mg/dL 2.3-4.7 Specimen moderately hemolyzed KETONE, [id number] 01:26:00* Test Item Value Reference Range Interpretation Comments KETONES, BLOOD (BEAKER) (test code = 1103) 0.9 mmol/L <0.4 H CBC W/PLT COUNT & AUTO [id number] 00:52:00* Test Item Value Reference Range Interpretation Comments WHITE BLOOD CELL COUNT (BEAKER) (test code = 775) 6.9 K/ L 4.0- 10.0 RED BLOOD CELL COUNT (BEAKER) (test code = 761) 4.63 M/ L 4.00-5 .00 HEMOGLOBIN (BEAKER) (test code = 410) 15.5 GM/DL 12.0-15.0 H HEMATOCRIT (BEAKER) (test code = 411) 43.3 % 36.0-45.0 MEAN CORPUSCULAR VOLUME (BEAKER) (test code = 753) 93.6 fL 82. 0-99.0 MEAN CORPUSCULAR HEMOGLOBIN (BEAKER) (test code = 751) 33.4 pg 27.0-33.0 H MEAN CORPUSCULAR HEMOGLOBIN CONC (BEAKER) (test code = 752) 35.7 GM/DL 32.0-36.0 RED CELL DISTRIBUTION WIDTH (BEAKER) (test code = 412) 14.3 % 10.3-14.2 H PLATELET COUNT (BEAKER) (test code = 756) 221 K/CU MM 150-430 MEAN PLATELET VOLUME (BEAKER) (test code = 754) 7.4 fL 6.5-10 .5 NUCLEATED RED BLOOD CELLS (BEAKER) (test code = 413) 0 /100 WBC 0 -0 NEUTROPHILS RELATIVE PERCENT (BEAKER) (test code = 429) 51 % LYMPHOCYTES RELATIVE PERCENT (BEAKER) (test code = 430) 39 % MONOCYTES RELATIVE PERCENT (BEAKER) (test code = 431) 7 % EOSINOPHILS RELATIVE PERCENT (BEAKER) (test code = 432) 2 % BASOPHILS RELATIVE PERCENT (BEAKER) (test code = 437) 1 % NEUTROPHILS ABSOLUTE COUNT (BEAKER) (test code = 670) 3.49 K/ L 1.80-8.00 LYMPHOCYTES ABSOLUTE COUNT (BEAKER) (test code = 414) 2.65 K/ L 1.48-4.50 MONOCYTES ABSOLUTE COUNT (BEAKER) (test code = 415) 0.47 K/ L 0. 00-1.30 EOSINOPHILS ABSOLUTE COUNT (BEAKER) (test code = 416) 0.16 K/ L 0.00-0.50 BASOPHILS ABSOLUTE COUNT (BEAKER) (test code = 417) 0.10 K/ L 0. 00-0.20 0.00
--- OUTSIDE RECORDS SUMMARY | 2020-04-12 21:40 | XMS REPORT | Clinical Summary ---
Author Author JAMES OwnLocal Organization [facility] Address Unknown Phone Unavailable Care Team Providers Care Cutting Machine Tender Name Role Phone Nilton Kauffman MD PCP Unavailable Marita Chu 33 Unavailable Allergies Comments Active Allergy Reactions Severity Noted Date Vitamin D may have been low at the time. Atorvastatin Calcium Other (See 11/14/2016 Comments) Choline Fenofibrate Other (See 11/14/2016 Comments) Atorvastatin 08/31/2014 cough Lisinopril 08/31/2014 Leg cramps Niacin Preparations 08/31/2014 Penicillins 08/31/2014 Pravastatin 08/31/2014 Tjifmwu-Kev-Ama Reductase 08/31/2014 Inhibitors Fenofibric Acid (Choline) 08/31/2014 [...] disease involving coronary bypass [place] heart 09/12/2019 without angina pectoris Dysphagia 09/12/2019 [...] Megan Rock MD 10/27/2019 Anest[facility]min Lantigua MD UPPER ENDOSCOPY 10/27/2019 [facility] Jeanna Witt Michelle, MD Naik, Gomez Tsai MD Epigastric pain (Primary Dx); Gastrointestinal hemorrhage, unspecified gastrointestinal hemorrhage type 10/26/2019 Emergency Cardiology - 10/28/2019 10/26/2019 Orders Only General Internal Ia dicine 10/26/2019 Travel 10/04/2019 Travel Pawan Hills MD Redfearn, Warren Erick, DO Warren, America A A Lentz, MD Zhou, Yang, MD Dyspnea and respiratory abnormality (Violeta ag Dx); Coronary artery disease involving coronary bypass graft of [place] heart without angina pectoris; Pleural effusion; Type 2 diabetes mellitus with stage 3 chronic kidney disease, with long-term current use of insulin (HCC); Hypertension, unspecified type 10/03/2019 [facility] General Internal Ia dicine - Encounter 10/09/2019 10/03/2019 Travel Cade Gaming MD Pleural effusion 10/02/2019 Hospital Radiology Encounter Cade Gaming MD Pleural effusion (Primary Dx) 09/29/2019 Outside Orders Central Scheduling 09/06/2019 Orders Only General Internal Ia dicine Tomi, MD Shirlene Kenyon Tuyen V., [...] CDT Oxygen Saturation 93% 09/09/2019 10:43 PM FORMS ANALYST Inhaled Oxygen 40% Concentration 10/26/2019 6:13 PM [...] er 7053 / / Stent Bili Rx [id number] IMPLANTS OMAR STON - [id number] SCI:ENDO Implanted: Qty: 1 on 08/18/2019 by [...] CDT POCT-GLUCOSE METER Routine 09/16/2019 10:17 PM FORMS ANALYST POCT-GLUCOSE METER Routine 09/16/2019 6:12 PM FORMS ANALYST POCT-GLUCOSE METER Routine 09/16/2019 12:32 PM FORMS ANALYST BODY FLUID CULTURE + GRAM Routine 09/16/2019 STAIN 12:19 PM FORMS ANALYST BODY FLUID CELL COUNT Routine 09/16/2019 WITH DIFFERENTIAL 12:19 PM FORMS ANALYST CYTOLOGY AP Routine 09/16/2019 12:18 PM FORMS ANALYST XR CHEST 1 VIEW STAT 09/16/2019 PORTABLE/BEDSIDE 11:58 AM FORMS ANALYST POCT-GLUCOSE METER Routine 09/16/2019 7:35 AM FORMS ANALYST CBC W/PLT COUNT & AUTO Routine 09/16/2019 DIFFERENTIAL 3:00 AM FORMS ANALYST BASIC METABOLIC PANEL (7) Routine 09/16/2019 3:00 AM FORMS ANALYST PROTHROMBIN TIME/INR Routine 09/16/2019 3:00 AM FORMS ANALYST CBC W/PLT COUNT & AUTO Routine 09/16/2019 DIFFERENTIAL 3:00 AM FORMS ANALYST POCT-GLUCOSE METER Routine 09/15/2019 9:43 PM FORMS ANALYST POCT-GLUCOSE METER Routine 09/15/2019 5:46 PM FORMS ANALYST POCT-GLUCOSE METER Routine 09/15/2019 12:29 PM FORMS ANALYST POCT-GLUCOSE METER Routine 09/15/2019 9:26 AM FORMS ANALYST POCT-GLUCOSE METER Routine 09/14/2019 9:50 PM FORMS ANALYST XR CHEST 1 VIEW Routine 09/14/2019 PORTABLE/BEDSIDE 6:51 PM FORMS ANALYST POCT-GLUCOSE METER Routine 09/14/2019 5:59 PM FORMS ANALYST POCT-GLUCOSE METER Routine 09/14/2019 12:38 PM FORMS ANALYST POCT-GLUCOSE METER Routine 09/14/2019 8:11 AM FORMS ANALYST (CELLAVISION MANUAL DIFF) Routine 09/14/2019 4:17 AM FORMS ANALYST CBC W/PLT COUNT & AUTO Routine 09/14/2019 DIFFERENTIAL 4:17 AM FORMS ANALYST BASIC METABOLIC PANEL (7) Routine 09/14/2019 4:17 AM FORMS ANALYST HEPATIC FUNCTION PANEL Routine 09/14/2019 4:17 AM FORMS ANALYST CBC W/PLT COUNT & AUTO Routine 09/14/2019 DIFFERENTIAL 4:17 AM FORMS ANALYST POCT-GLUCOSE METER Routine 09/13/2019 9:52 PM FORMS ANALYST POCT-GLUCOSE METER Routine 09/13/2019 5:20 PM FORMS ANALYST POCT-GLUCOSE METER Routine 09/13/2019 11:41 AM FORMS ANALYST POCT-GLUCOSE METER Routine 09/13/2019 7:49 AM FORMS ANALYST (CELLAVISION MANUAL DIFF) Routine 09/13/2019 4:09 AM FORMS ANALYST CBC W/PLT COUNT & AUTO Routine 09/13/2019 DIFFERENTIAL 4:09 AM FORMS ANALYST BASIC METABOLIC PANEL (7) Routine 09/13/2019 4:09 AM FORMS ANALYST HEPATIC FUNCTION PANEL Routine 09/13/2019 4:09 AM FORMS ANALYST CBC W/PLT COUNT & AUTO Routine 09/13/2019 DIFFERENTIAL 4:09 AM FORMS ANALYST POCT-GLUCOSE METER Routine 09/12/2019 10:08 PM FORMS ANALYST POCT-GLUCOSE METER Routine 09/12/2019 5:20 PM FORMS ANALYST POCT-GLUCOSE METER Routine 09/12/2019 12:49 PM FORMS ANALYST POCT-GLUCOSE METER Routine 09/12/2019 8:06 AM FORMS ANALYST (CELLAVISION MANUAL DIFF) Routine 09/12/2019 4:49 AM FORMS ANALYST CBC W/PLT COUNT & AUTO Routine 09/12/2019 DIFFERENTIAL 4:49 AM FORMS ANALYST HEPATIC FUNCTION PANEL Routine 09/12/2019 4:49 AM FORMS ANALYST PHOSPHORUS Routine 09/12/2019 4:49 AM FORMS ANALYST MAGNESIUM Routine 09/12/2019 4:49 AM FORMS ANALYST BASIC METABOLIC PANEL (7) Routine 09/12/2019 4:49 AM FORMS ANALYST CBC W/PLT COUNT & AUTO Routine 09/12/2019 DIFFERENTIAL 4:49 AM FORMS ANALYST POCT-GLUCOSE METER Routine 09/12/2019 12:54 AM FORMS ANALYST POCT-GLUCOSE METER Routine 09/11/2019 5:36 PM FORMS ANALYST POCT-GLUCOSE METER Routine 09/11/2019 5:05 PM FORMS ANALYST PHOSPHORUS Routine 09/11/2019 3:35 PM FORMS ANALYST MAGNESIUM Routine 09/11/2019 3:35 PM FORMS ANALYST BASIC METABOLIC PANEL (7) Routine 09/11/2019 3:35 PM FORMS ANALYST POCT-GLUCOSE METER Routine 09/11/2019 12:08 PM FORMS ANALYST POCT-GLUCOSE METER Routine 09/11/2019 8:01 AM FORMS ANALYST (CELLAVISION MANUAL DIFF) Routine 09/11/2019 3:32 AM FORMS ANALYST CBC W/PLT COUNT & AUTO Routine 09/11/2019 DIFFERENTIAL 3:32 AM FORMS ANALYST HEPATIC FUNCTION PANEL Routine 09/11/2019 3:32 AM FORMS ANALYST PHOSPHORUS Routine 09/11/2019 3:32 AM FORMS ANALYST MAGNESIUM Routine 09/11/2019 3:32 AM FORMS ANALYST BASIC METABOLIC PANEL (7) Routine 09/11/2019 3:32 AM FORMS ANALYST CBC W/PLT COUNT & AUTO Routine 09/11/2019 DIFFERENTIAL 3:32 AM FORMS ANALYST POCT-GLUCOSE METER Routine 09/10/2019 11:06 PM FORMS ANALYST POCT-GLUCOSE METER Routine 09/10/2019 5:50 PM FORMS ANALYST PHOSPHORUS Routine 09/10/2019 4:19 PM FORMS ANALYST MAGNESIUM Routine 09/10/2019 4:19 PM FORMS ANALYST BASIC METABOLIC PANEL (7) Routine 09/10/2019 4:19 PM FORMS ANALYST POCT-GLUCOSE METER Routine 09/10/2019 2:35 PM FORMS ANALYST POCT-GLUCOSE METER Routine 09/10/2019 7:59 AM FORMS ANALYST CBC W/PLT COUNT & AUTO Routine 09/10/2019 DIFFERENTIAL 4:30 AM FORMS ANALYST HEPATIC FUNCTION PANEL Routine 09/10/2019 4:30 AM FORMS ANALYST PHOSPHORUS Routine 09/10/2019 4:30 AM FORMS ANALYST MAGNESIUM Routine 09/10/2019 4:30 AM FORMS ANALYST BASIC METABOLIC PANEL (7) Routine 09/10/2019 4:30 AM FORMS ANALYST CBC W/PLT COUNT & AUTO Routine 09/10/2019 DIFFERENTIAL 4:30 AM FORMS ANALYST APTT Routine 09/10/2019 4:30 AM FORMS ANALYST APTT Routine 09/09/2019 11:11 PM FORMS ANALYST POCT-GLUCOSE METER Routine 09/09/2019 9:31 PM FORMS ANALYST POTASSIUM Routine 09/09/2019 5:38 PM FORMS ANALYST APTT Routine 09/09/2019 5:38 PM FORMS ANALYST POCT-GLUCOSE METER Routine 09/09/2019 4:26 PM FORMS ANALYST PHOSPHORUS Routine 09/09/2019 2:28 PM FORMS ANALYST MAGNESIUM Routine 09/09/2019 2:28 PM FORMS ANALYST BASIC METABOLIC PANEL (7) Routine 09/09/2019 2:28 PM FORMS ANALYST APTT Routine 09/09/2019 11:16 AM FORMS ANALYST POCT-GLUCOSE METER Routine 09/09/2019 11:14 AM FORMS ANALYST POCT-GLUCOSE METER Routine 09/09/2019 7:25 AM FORMS ANALYST BILIRUBIN, DIRECT STAT 09/09/2019 Add-on 5:11 AM FORMS ANALYST DIGOXIN LEVEL Routine 09/09/2019 5:11 AM FORMS ANALYST TROPONIN I STAT 09/09/2019 5:11 AM FORMS ANALYST CBC W/PLT COUNT & AUTO Routine 09/09/2019 DIFFERENTIAL 3:08 AM FORMS ANALYST BLOOD GAS, ARTERIAL Routine 09/09/2019 3:08 AM FORMS ANALYST APTT Routine 09/09/2019 3:08 AM FORMS ANALYST PHOSPHORUS Routine 09/09/2019 3:08 AM FORMS ANALYST MAGNESIUM Routine 09/09/2019 3:08 AM FORMS ANALYST COMPREHENSIVE METABOLIC Routine 09/09/2019 PANEL 3:08 AM FORMS ANALYST CBC W/PLT COUNT & AUTO Routine 09/09/2019 DIFFERENTIAL 3:08 AM FORMS ANALYST XR ABDOMEN / KUB 1 VIEW STAT 09/09/2019 2:16 AM FORMS ANALYST LACTIC ACID, VENOUS STAT 09/09/2019 1:53 AM FORMS ANALYST TROPONIN I STAT 09/08/2019 11:17 PM FORMS ANALYST POCT-GLUCOSE METER Routine 09/08/2019 10:44 PM FORMS ANALYST ECHOCARDIOGRAM REPORT - 09/08/2019 SCAN 9:12 PM FORMS ANALYST MAGNESIUM Routine 09/08/2019 5:53 PM FORMS ANALYST POTASSIUM Routine 09/08/2019 5:53 PM FORMS ANALYST TROPONIN I STAT 09/08/2019 5:53 PM FORMS ANALYST POCT-GLUCOSE METER Routine 09/08/2019 4:59 PM FORMS ANALYST BLOOD CULTURE Routine 09/08/2019 4:48 PM FORMS ANALYST BLOOD CULTURE Routine 09/08/2019 4:45 PM FORMS ANALYST C. DIFFICILE GDH TOXIN Routine 09/08/2019 4:30 PM FORMS ANALYST HEPARIN ANTIBODY AP Routine 09/08/2019 3:53 PM FORMS ANALYST TROPONIN I STAT 09/08/2019 1:17 PM FORMS ANALYST LACTIC ACID, ARTERIAL Routine 09/08/2019 1:17 PM FORMS ANALYST BASIC METABOLIC PANEL (7) STAT 09/08/2019 1:17 PM FORMS ANALYST POCT-GLUCOSE METER Routine 09/08/2019 11:45 AM FORMS ANALYST ECG 12-LEAD Routine 09/08/2019 10:45 AM FORMS ANALYST Procedure Note - Interface, External Ris In - 09/08/2019 12:22 PM FORMS ANALYST Ventricula r Rate 140 BPM Atrial Rate 140 BPM P-R Interval 80 ms QRS Duration 118 ms Q-T Interval 324 ms QTC Calculatio n(Bazett) 494 ms P [place] -64 degrees R [place] -59 degrees T [place] 110 degrees Unusual P axis and short SC, probable junctional tachycardi a Left anterior fascicular block Cannot rule out Inferior infarct (masked by fascicular block?) , possibly acute Possible Anterolate ral infarct (cited on or before 0) ACUTE KS / STEMI Consider right ventricula r involvemen t in acute inferior infarct Abnormal ECG When compared with ECG of 0 00:53, Junctional rhythm has replaced Atrial fibrillati on Serial changes of Anterior infarct Present ECG 12-LEAD STAT 09/08/2019 10:45 AM FORMS ANALYST TROPONIN I STAT 09/08/2019 10:45 AM FORMS ANALYST POCT-GLUCOSE METER Routine 09/08/2019 8:47 AM FORMS ANALYST TROPONIN I Add-On 09/08/2019 8:35 AM FORMS ANALYST BASIC METABOLIC PANEL (7) Add-On 09/08/2019 8:35 AM FORMS ANALYST APTT Routine 09/08/2019 8:35 AM FORMS ANALYST PROTHROMBIN TIME/INR Routine 09/08/2019 8:35 AM FORMS ANALYST FIBRINOGEN Routine 09/08/2019 8:35 AM FORMS ANALYST HAPTOGLOBIN Routine 09/08/2019 8:35 AM FORMS ANALYST LACTATE DEHYDROGENASE Routine 09/08/2019 (LDH) 8:35 AM FORMS ANALYST (CELLAVISION MANUAL DIFF) Routine 09/08/2019 3:56 AM FORMS ANALYST CBC W/PLT COUNT & AUTO Routine 09/08/2019 DIFFERENTIAL 3:56 AM FORMS ANALYST PHOSPHORUS Add-On 09/08/2019 3:56 AM FORMS ANALYST MAGNESIUM Add-On 09/08/2019 3:56 AM FORMS ANALYST COMPREHENSIVE METABOLIC Routine 09/08/2019 PANEL 3:56 AM FORMS ANALYST CBC W/PLT COUNT & AUTO Routine 09/08/2019 DIFFERENTIAL 3:56 AM FORMS ANALYST APTT Routine 09/08/2019 2:09 AM FORMS ANALYST LACTIC ACID, VENOUS Routine 09/08/2019 1:13 AM FORMS ANALYST ECG 12-LEAD Routine 09/08/2019 12:53 AM FORMS ANALYST ECG 12-LEAD Routine 09/08/2019 12:53 AM FORMS ANALYST Procedure Note - Interface, External Ris In - 09/08/2019 1:03 AM FORMS ANALYST Ventricula r Rate 149 BPM Atrial Rate 136 BPM QRS Duration 126 ms Q-T Interval 336 ms QTC Calculatio n(Bazett) 529 ms R [place] -63 degrees T [place] 120 degrees Atrial fibrillati on with rapid [...] Present POCT-GLUCOSE METER Routine 09/07/2019 9:11 PM FORMS ANALYST US HEPATIC PORTAL VESSEL STAT 09/07/2019 WITH DOPPLER 9:00 PM FORMS ANALYST APTT Routine 09/07/2019 7:51 PM FORMS ANALYST LACTIC ACID, ARTERIAL STAT 09/07/2019 4:25 PM FORMS ANALYST BLOOD GAS, ARTERIAL BENSON 09/07/2019 4:25 PM FORMS ANALYST BLOOD CULTURE Routine 09/07/2019 4:25 PM FORMS ANALYST XR CHEST 1 VIEW STAT 09/07/2019 PORTABLE/BEDSIDE 3:27 PM FORMS ANALYST 2D ECHO W/ DOPPLER STAT 09/07/2019 (CW/PW/COLOR) 2:48 PM FORMS ANALYST APTT Routine 09/07/2019 1:35 PM FORMS ANALYST PLATELET COUNT Routine 09/07/2019 1:35 PM FORMS ANALYST LACTIC ACID, VENOUS Routine 09/07/2019 1:35 PM FORMS ANALYST POCT-GLUCOSE METER Routine 09/07/2019 12:36 PM FORMS ANALYST BLOOD CULTURE Routine 09/07/2019 10:38 AM FORMS ANALYST (CELLAVISION MANUAL DIFF) Routine 09/07/2019 10:37 AM FORMS ANALYST CBC W/PLT COUNT & AUTO Routine 09/07/2019 DIFFERENTIAL 10:37 AM FORMS ANALYST COMPREHENSIVE METABOLIC Routine 09/07/2019 PANEL 10:37 AM FORMS ANALYST CBC W/PLT COUNT & AUTO Routine 09/07/2019 DIFFERENTIAL 10:37 AM FORMS ANALYST TROPONIN I Routine 09/07/2019 10:37 AM FORMS ANALYST LACTIC ACID, VENOUS Routine 09/07/2019 10:37 AM FORMS ANALYST POCT-GLUCOSE METER Routine 09/07/2019 9:00 AM FORMS ANALYST ECG 12-LEAD Routine 09/07/2019 5:41 AM FORMS ANALYST Procedure Note - Interface, External Ris In - 09/07/2019 5:51 AM FORMS ANALYST Ventricula r Rate 96 BPM Atrial Rate 96 BPM P-R Interval 146 ms QRS Duration 124 ms Q-T Interval 402 ms QTC Calculatio n(Bazett) 507 ms P [place] 53 degrees R [place] -59 degrees T [place] 98 degrees Sinus rhythm with Premature atrial complexes Left anterior fascicular block Cannot rule out Anterior infarct , age undetermin ed Abnormal ECG When compared with ECG of 0 12:46, Premature atrial complexes are now Present ECG 12-LEAD Routine 09/07/2019 5:41 AM FORMS ANALYST POCT-GLUCOSE METER Routine 09/06/2019 9:23 PM FORMS ANALYST TROPONIN I STAT 09/06/2019 8:17 PM FORMS ANALYST B-TYPE NATRIURETIC FACTOR Routine 09/06/2019 (BNP) 8:17 PM FORMS ANALYST APTT Routine 09/06/2019 8:17 PM FORMS ANALYST HEMOGLOBIN A1C Routine 09/06/2019 8:17 PM FORMS ANALYST POCT-GLUCOSE METER Routine 09/06/2019 5:44 PM FORMS ANALYST TROPONIN I STAT 09/06/2019 4:09 PM FORMS ANALYST LACTIC ACID, VENOUS STAT 09/06/2019 4:09 PM FORMS ANALYST TROPONIN I STAT 09/06/2019 Add-on 4:08 PM FORMS ANALYST BASIC METABOLIC PANEL (7) Routine 09/06/2019 4:08 PM FORMS ANALYST FERRITIN Routine 09/06/2019 4:08 PM FORMS ANALYST IRON, TIBC, % SAT. Routine 09/06/2019 (WITHOUT FERRITIN) 4:08 PM FORMS ANALYST POCT-GLUCOSE METER Routine 09/06/2019 1:35 PM FORMS ANALYST RETICULOCYTE COUNT Routine 09/06/2019 1:18 PM FORMS ANALYST LACTIC ACID, VENOUS STAT 09/06/2019 1:18 PM FORMS ANALYST ECG 12-LEAD Routine 09/06/2019 12:46 PM FORMS ANALYST CREATININE, RANDOM URINE Routine 09/06/2019 12:29 PM FORMS ANALYST SODIUM, RANDOM URINE Routine 09/06/2019 12:29 PM FORMS ANALYST TROPONIN I Add-On 09/06/2019 9:48 AM FORMS ANALYST PROCALCITONIN STAT 09/06/2019 9:48 AM FORMS ANALYST LACTIC ACID, VENOUS STAT 09/06/2019 9:[address] ABDOMEN/PELVIS WITHOUT STAT 09/06/2019 IV CONTRAST 8:00 AM FORMS ANALYST LACTIC ACID, VENOUS STAT 09/06/2019 6:56 AM FORMS ANALYST TROPONIN I Add-On 09/06/2019 5:26 AM FORMS ANALYST KETONE, BLOOD STAT 09/06/2019 5:26 AM FORMS ANALYST BASIC METABOLIC PANEL (7) STAT 09/06/2019 5:26 AM FORMS ANALYST POCT-GLUCOSE METER Routine 09/06/2019 5:04 AM FORMS ANALYST BASIC METABOLIC PANEL (7) STAT 09/06/2019 2:55 AM FORMS ANALYST CBC W/PLT COUNT & AUTO STAT 09/06/2019 DIFFERENTIAL 1:55 AM FORMS ANALYST URINALYSIS W/ MICROSCOPIC STAT 09/06/2019 1:55 AM FORMS ANALYST PT/APTT STAT 09/06/2019 1:55 AM FORMS ANALYST CBC W/PLT COUNT & AUTO STAT 09/06/2019 DIFFERENTIAL 1:55 AM FORMS ANALYST BLOOD CULTURE Routine 09/06/2019 IDENTIFICATION PANEL 1:55 AM FORMS ANALYST BLOOD CULTURE STAT 09/06/2019 1:55 AM FORMS ANALYST URINE CULTURE STAT 09/06/2019 1:55 AM FORMS ANALYST BLOOD CULTURE STAT 09/06/2019 1:27 AM FORMS ANALYST KETONE, BLOOD STAT 09/06/2019 1:26 AM FORMS ANALYST AMMONIA STAT 09/06/2019 1:26 AM FORMS ANALYST ECG 12-LEAD Routine 09/06/2019 1:20 AM FORMS ANALYST Procedure Note - Interface, External Ris In - 09/06/2019 2:14 AM FORMS ANALYST Ventricula r Rate 80 BPM Atrial Rate 80 BPM P-R Interval 148 ms QRS Duration 114 ms Q-T Interval 372 ms QTC Calculatio n(Bazett) 429 ms P [place] 57 degrees R [place] -60 degrees T [place] 103 degrees Normal sinus rhythm with sinus arrhythmia Left anterior fascicular block Cannot rule out Anterior infarct , age undetermin ed Abnormal ECG When compared with ECG of 7 00:26, T wave inversion no longer evident in Inferior leads T wave inversion now evident in Lateral leads ECG 12-LEAD STAT 09/06/2019 1:20 AM FORMS ANALYST LIPASE STAT 09/06/2019 1:10 AM FORMS ANALYST HEPATIC FUNCTION PANEL STAT 09/06/2019 1:10 AM FORMS ANALYST TROPONIN I STAT 09/06/2019 1:10 AM FORMS ANALYST CREATINE KINASE (CK) STAT 09/06/2019 1:10 AM FORMS ANALYST ED ECG INTERPRETATION Routine 09/06/2019 12:47 AM FORMS ANALYST CRITICAL CARE Routine 09/06/2019 12:47 AM FORMS ANALYST XR PELVIS 1 OR 2 VIEWS STAT 09/06/2019 12:15 AM FORMS ANALYST XR CHEST 1 VIEW STAT 09/06/2019 PORTABLE/BEDSIDE 12:[address] BRAIN WITHOUT IV STAT 09/05/2019 CONTRAST 11:32 PM FORMS ANALYST RHYTHM STRIP - SCAN 08/21/2019 1:23 PM FORMS ANALYST POCT-GLUCOSE METER Routine 08/19/2019 10:09 AM FORMS ANALYST CBC W/PLT COUNT & AUTO Routine 08/19/2019 DIFFERENTIAL 5:35 AM FORMS ANALYST CBC W/PLT COUNT & AUTO Routine 08/19/2019 DIFFERENTIAL 5:35 AM FORMS ANALYST HEPATIC FUNCTION PANEL Routine 08/19/2019 3:47 AM FORMS ANALYST COMPREHENSIVE METABOLIC Routine 08/19/2019 PANEL 3:47 AM FORMS ANALYST POCT-GLUCOSE METER Routine 08/18/2019 8:29 PM FORMS ANALYST POCT-GLUCOSE METER Routine 08/18/2019 4:35 PM FORMS ANALYST REPORT OF PROCEDURE - 08/18/2019 ENDOSCOPY URL 2:04 PM FORMS ANALYST FL ERCP Routine 08/18/2019 2:00 PM FORMS ANALYST FINE NEEDLE ASPIRATE Routine 08/18/2019 (FNA) REQUEST 1:44 PM FORMS ANALYST FINE NEEDLE ASPIRATION BY AP Routine 08/18/2019 CLINICIAN 1:44 PM FORMS ANALYST ERCP,BILIARY STENT 08/18/2019 Jaundice 1:00 PM FORMS ANALYST Special Needs (RADIAL SCOPE) PROCEDURE W/ C-ARM 08/18/2019 Jaundice 1:00 PM FORMS ANALYST Special Needs (RADIAL SCOPE) ERCP,PAPILLOTOMY 08/18/2019 Jaundice 1:00 PM FORMS ANALYST Special Needs (RADIAL SCOPE) UPPER 08/18/2019 Jaundice ENDOSCOPY,ULTRASOUND 1:00 PM FORMS ANALYST Special Needs (RADIAL SCOPE) POCT-GLUCOSE METER Routine 08/18/2019 11:33 AM FORMS ANALYST POCT-GLUCOSE METER Routine 08/18/2019 7:51 AM FORMS ANALYST CBC W/PLT COUNT & AUTO Routine 08/18/2019 DIFFERENTIAL 4:04 AM FORMS ANALYST CBC W/PLT COUNT & AUTO Routine 08/18/2019 DIFFERENTIAL 4:04 AM FORMS ANALYST COMPREHENSIVE METABOLIC Routine 08/18/2019 PANEL 4:04 AM FORMS ANALYST POCT-GLUCOSE METER Routine 08/17/2019 8:44 PM FORMS ANALYST POCT-GLUCOSE METER Routine 08/17/2019 10:08 AM FORMS ANALYST CBC W/PLT COUNT & AUTO Routine 08/17/2019 DIFFERENTIAL 4:37 AM FORMS ANALYST CBC W/PLT COUNT & AUTO Routine 08/17/2019 DIFFERENTIAL 4:37 AM FORMS ANALYST COMPREHENSIVE METABOLIC Routine 08/17/2019 PANEL 4:37 AM FORMS ANALYST MR ABDOMEN WO CONTRAST Routine 08/17/2019 MRCP 2:13 AM FORMS ANALYST CBC W/PLT COUNT & AUTO Routine 08/16/2019 DIFFERENTIAL 10:00 PM FORMS ANALYST PT/APTT STAT 08/16/2019 10:00 PM FORMS ANALYST CBC W/PLT COUNT & AUTO Routine 08/16/2019 DIFFERENTIAL 10:00 PM FORMS ANALYST COMPREHENSIVE METABOLIC Routine 08/16/2019 PANEL 10:00 PM FORMS ANALYST POCT-GLUCOSE METER Routine 08/16/2019 9:13 PM FORMS ANALYST POCT-GLUCOSE METER Routine 08/16/2019 6:37 PM FORMS ANALYST after 04/12/2019 Results * EKG-SCANNED (10/30/2019 9:50 [...] : TESTED AT 70 - 110 mg/dL [address], [facility] [address]: Validation Analyst/Safety Grooving Machine Operator ID = [id number] for Sepideh Villegas [facility] Blood Performing Organization Address City/State/Zipcode Ph one Number [address] [facility] * CBC with platelet count + automated diff (10/28/2019 5:53 AM CDT) Only the most recent of 22 results within the time period is included. WBC 4.7 3.5 - 10.5 K/L [facility] RBC 3.85 (L) 3.93 - 5.22 M/L [facility] Hemoglobin 12.3 11.2 - 15.7 GM/DL [facility] Hematocrit 37.2 34.1 - 44.9 % [facility] MCV 96.6 (H) 79.4 - 94.8 fL [facility] MCH 31.9 25.6 - 32.2 pg [facility] MCHC 33.1 32.2 - 35.5 GM/DL [facility] RDW 13.4 11.7 - 14.4 % [facility] Platelets 128 (L) 150 - 450 K/CU MM [facility] MPV 10.4 9.4 - 12.3 fL [facility] nRBC 0 0 - 0 /100 WBC [facility] % Neutros 39 % [facility] % Lymphs 48 % [facility] % Monos 7 % [facility] % Eos 6 % [facility] % Baso 1 % [facility] # Neutros 1.84 1.56 - 6.13 K/L [facility] # Lymphs 2.27 1.18 - 3.74 K/L [facility] # Monos 0.33 0.24 - 0.36 K/L [facility] # Eos 0.26 0.04 - 0.36 K/L [facility] # Baso 0.03 0.01 - 0.08 K/L [facility] Immature 0 0 - 1 % [facility] Granulocytes-[facility] Specimen Blood Performing Organization Address [facility] one [facility] [address] [place] [address] [address] [facility] * Basic Metabolic Panel (10/28/2019 5:53 AM CDT) Only the most recent of 22 results within the time period is included. Sodium 140 136 - 145 meq/L [facility] Potassium 3.6 3.5 - 5.1 meq/L [facility] Chloride 108 (H) 98 - 107 meq/L [facility] CO2 26 22 - 29 meq/L [facility] BUN 14 7 - 21 mg/dL [facility] Creatinine 1.19 0.57 - 1.25 mg/dL [facility] Glucose 288 (H) 70 - 105 mg/dL [facility] Calcium 8.6 8.4 - 10.2 mg/dL [facility] EGFR 44Comment: ESTIMATED GFR IS mL/min/1.[address] [facility] NOT ACCURATE CREATININE [facility] CLEARANCE IN PREDICTING GLOMERULAR FILTRATION RATE. ESTIMATED GFR IS NOT APPLICABLE FOR DIALYSIS PATIENTS. Specimen Blood Narrative Performed At Validation Analyst ID - LM [facility] Performing Organization Address [facility] one Number [place] [address] [facility] * Urinalysis w/Microscopic + Reflex to Culture (10/27/2019 9:31 PM CDT) Color, UA Yellow [facility] Clarity, UA Clear [facility] Specific [place], UA 1.015 1.001 - 1.035 [facility] pH, UA 6.0 5.0 - 8.0 [facility] Protein, UA Negative Negative [facility] Glucose, UA 300 mg/dL (A) Negative [facility] Ketones, UA Negative Negative [facility] Bilirubin, UA Negative Negative [facility] Blood, UA Negative Negative [facility] Nitrite, UA Negative Negative [facility] Leukocytes, UA Negative Negative [facility] Urobilinogen, UA 2.0 (H) 0.2 - 1.0 mg/dL [facility] RBC, UA <1 /HPF [facility] WBC, UA 1 /HPF [facility] Mucus Rare [facility] Squam Epithel, UA <1 /HPF [facility] Specimen Source [facility] Specimen Urine Narrative Performed At Validation Analyst ID - [auto] [facility] Validation Analyst ID - [facility] Performing Organization Address City/[facility] one Number [place] [phone] [facility] * Osmolality, urine (10/27/2019 9:31 PM CDT) Osmolality, Ur 576 40-1,400 mOsm/kg [facility] Specimen Urine Performing Organization Address [facility] Ph one Number [address] [facility] * Creatinine, random urine (10/27/2019 9:31 PM CDT) Only the most recent of 2 results within the time period is included. Creatinine, Ur 78.9 mg/dL [facility] Specimen Urine Narrative Performed At Reference Range: No Normals [facility] Validation Analyst ID - DB [facility] Performing Organization Address [facility] Ph one Number [facility] [address], [place] [address] [facility] * REPORT OF PROCEDURE - ENDOSCOPY URL (10/27/2019 12:06 PM CDT) Narrative Performed At This result has an attachment that is n ot available. * PT/aPTT (10/27/2019 3:27 AM CDT) Only the most recent of 5 results within the time period is included. Protime 13.6 11.9 - 14.2 seconds [facility] INR 1.1 <=5.9 [facility] PTT 32.6 22.5 - 36.0 seconds [facility] Specimen Blood Narrative Performed At Effective 12/07/2018: PT Reference Range Change [facility] New: 11.9-14.2Previous: 11.7-14.7 [facility] MEDICAL CE NTER RECOMMENDED COUMADIN/WARFARIN INR THERA PY RANGES STANDARD DOSE: 2.0-3.0Includes: PRO PHYLAXIS for venous thrombosis, systemic embolization; TREATMENT for venous thro mbosis and/or pulmonary embolus. HIGH RISK: Target INR is 2.5-3.5 for pa tients wiht mechanical heart valves. Performing Organization Address City/[facility] one Number [facility] [address], [place] [address] [facility] * Hemoglobin and hematocrit (10/27/2019 3:27 AM CDT) Only the most recent of 2 results within the time period is included. Hemoglobin 12.2 11.2 - 15.7 GM/DL [facility] Hematocrit 37.0 34.1 - 44.9 % [facility] Specimen Blood Narrative Performed At Validation Analyst ID - [id number] [facility] Performing Organization Address [facility] one Number [address] [address] [facility] * Troponin I (10/27/2019 3:27 AM CDT) Only the most recent of 19 results within the time period is included. Troponin I 0.02 0.00 - 0.03 ng/mL [facility] Specimen Blood Narrative Performed At Troponin I (TnI) levels must be interpreted in the co ntext of the presenting [facility] symptoms and the clinical findings. Elevated TnI leve ls indicate myocardial [facility] damage, but are not specific for ischem ic heart disease. Elevated TnI levels are seen in patients with other cardiac con ditions (including myocarditis and congestive heart failure), and slight T nI elevations occur in patients with other conditions, including sepsis, briseyda al failure, acidosis, acute neurological disease, and persistent tachyarrhythmia . Validation Analyst ID - BARRINGTON Xavier Performing Organization Address [facility] one Number [address] [facility] * Occult blood x 1, stool (10/26/2019 7:18 PM CDT) Occult blood Negative Negative [facility] Specimen Stool Performing Organization Address [facility] one Number [address] 0 [phone] [place] [address] * ECG 12 lead (10/26/2019 7:00 PM CDT) Only the most recent of 7 results within the time period is included. Specimen Narrative Performed At Ventricular Rate 65 BPM GE MUSE Atrial Rate 65 BPM P-R Interval 172 ms QRS Duration 130 ms Q-T Interval 480 ms QTC Calculation(Bazett) 499 ms P Kewadin 56 degrees R Kewadin -65 degrees T [place] 102 degrees Normal sinus rhythm with sinus arrhythm ia Left axis deviation Left ventricular hypertrophy with QRS w idening and repolarization abnormality Abnormal ECG When compared with ECG of 03-OCT-2019 1 8:14, No significant change was found Confirmed by MD Campbell Roberto ([id number]) on 10/27/2019 1:42:06 PM Procedure Note Interface, External Ris In - 10/27/2019 1:42 PM CDT Ventricular Rate 65 BPM Atrial Rate 65 BPM P-R Interval 172 ms QRS Duration 130 ms Q-T Interval 480 ms QTC Calculation(Bazett) 499 ms P [place] 56 degrees R Kewadin -65 degrees T [place] 102 degrees Normal sinus rhythm with sinus arrhythmia Left axis deviation Left ventricular hypertrophy with QRS widening and repolarization abnormality Abnormal ECG When compared with ECG of 03-OCT-2019 18:14, No significant change was found Confirmed by MD Campbell Roberto ([id number]) on 10/27/2019 1:42:06 PM Performing Organization Address City/State/Zipcode Ph one Number The [address] MUSE * XR chest 1 view portable / bedside (10/26/2019 6:30 PM CDT) Only the most recent of 6 results within the time period is included. Specimen Narrative Performed At FINAL REPORT Scaffold INDICATION: gi bleed COMPARISON: 10/03/2019 TECHNIQUE: Single [...] y. Prior median sternotomy. Other: None. Signed: Marita Kline MD Report Verified Date/Time: 0 19:07:20 [...] abnormality. Prior median sternotomy. Other: None. Signed: Mraita Kline MD Report Verified Date/Time: 10/26/2019 19:07:20 Performing Organization Address [facility] Ph one Number GE [facility] * XR [...] Verified Date/Time: 10/26/2019 19:12:09 Performing Organization Address [facility] one Number [facility] * Lipase (10/26/2019 6:24 PM CDT) Only the most recent of 2 results within the time period is included. Lipase 52 8 - 78 U/L [facility] Specimen Blood Narrative Performed At Validation Analyst ID - JOY Rick [facility] Performing Organization Address [facility] Ph one Number [place] [phone] [facility] * Hepatic function panel (10/26/2019 [...] (H)Comment: Specimen 0.1 - 0.5 mg/dL C [facility] Alkaline Phosphatase 109 40 - 150 U/L [facility] AST 30Comment: Specimen slightly 5 - 34 U/L C [facility] ALT 16Comment: Specimen slightly 6 - 55 U/L C [facility] Specimen Blood Narrative Performed At Validation Analyst ID - JOY Rick [facility] Performing Organization Address City/State/Zipcode Ph one Number [place] [address] [facility] * CT chest without IV contrast (10/06/2019 9:56 PM CDT) Specimen Narrative Performed At FINAL REPORT Scaffold CT of the Chest dated 10/06/2019 CLINICAL [...] Verified Date/Time: 0 22:07:58 Reading Location: [facility] Consult Reading Room Procedure Note Interface, [...] Verified Date/Time: 10/06/2019 22:07:58 Reading Location: [facility] Consult Reading Room Performing Organization Address City/State[facility] Ph one Number [facility] * Prothrombin time/INR (10/05/2019 4:04 AM CDT) Only the most recent of 4 results within the time period is included. Protime 13.7 11.9 - 14.2 seconds [facility] INR 1.1 <=5.9 [facility] Specimen Blood Narrative Performed At Effective 12/07/2018: PT Reference Range Change [facility] New: 11.9-14.2Previous: 11.7-14.7 [facility] MEDICAL NTER RECOMMENDED COUMADIN/WARFARIN INR THERA PY RANGES STANDARD DOSE: 2.0-3.0Includes: PRO PHYLAXIS for venous thrombosis, systemic embolization; TREATMENT for venous thro mbosis and/or pulmonary embolus. HIGH RISK: Target INR is 2.5-3.5 for pa tients wiht mechanical heart valves. Performing Organization Address City/[facility] one Number [place] [address] [facility] * ANG INTRAPERITONEAL PERMANENT CATHETER (10/04/2019 12:16 PM CDT) Specimen Narrative Performed At FINAL REPORT [facility] History: Leaking Pleurx catheter. PROCEDURE: Following informed [...] the right pleural space over a 4 Armenian Berenstein catheter and superstiff Glidewire contrast injection [...] without immediate complications [facility] FINDINGS: Initial fluoroscopic [...] Report Verified Date/Time: 0 14:49:39 Reading Location: [facility] Reading Room - [facility] 1.310.12 Procedure Note Interface, External Ris [...] the right pleural space over a 4 Armenian Berenstein catheter and superstiff Glidewire contrast injection [...] Report Verified Date/Time: 10/05/2019 14:49:39 Reading Location: [facility] Diagnostic Imaging Reading Room - [facility] 1.310.12 Performing Organization Address [facility] one Number [facility] * Lactic acid, venous (10/03/2019 7:20 PM CDT) Only the most recent of 9 results within the time period is included. Lactate, Venous 1.54Comment: Specimen 0.50 - 2.20 mmol/L [facility] Specimen Blood Narrative Performed At Validation Analyst ID - BS [facility] Performing Organization Address [facility] one Number [facility] [address] [place] [address] [facility] * B-type Natriuretic Factor (BNP) (10/03/2019 6:58 PM CDT) Only the most recent of 2 results within the time period is included. BNP 209 (H) 0 - 100 pg/mL [facility] Specimen Blood Narrative Performed At Validation Analyst ID - BS [facility] Performing Organization Address [facility] one Number [facility] [address], [place] [address] [facility] * Magnesium (10/03/2019 6:58 PM CDT) Only the most recent of 10 results within the time period is included. Magnesium 1.6Comment: Specimen 1.6 - 2.6 mg/dL [facility] moderately hemolyzed [facility] Specimen Blood Narrative Performed At Validation Analyst ID - BS [facility] Performing Organization Address City/State/Zipcode Ph one Number [facility] [address], [place] [address] MED[facility]ENTER * IR Tunneled Drainage Catheter Placement (10/02/2019 5:20 PM CDT) Specimen Narrative Performed At FINAL REPORT [facility] History: Pancreatic cancer, recurrent r ight pleural [...] well without immediate complications and [facility] department in stable condition. FINDINGS: [...] Report Verified Date/Time: 0 17:43:09 Reading Location: [facility] Radiology Readin g Room Procedure Note [...] Report Verified Date/Time: 10/04/2019 17:43:09 Reading Location: [facility] Radiology Reading Room Performing Organization Address [facility] one Number [facility] * aPTT (10/02/2019 10:23 AM CDT) Only the most recent of 11 results within the time period is included. PTT 31.2 22.5 - 36.0 seconds [facility] Specimen Blood Performing Organization Address [facility] one Number [facility] [address] [place] [address] [facility] * Protein, Total, Pleural Fluid (09/17/2019 4:36 PM CDT) PROTEIN, TOTAL, PLEURAL 2.1 [facility] Specimen Body Fluid Narrative Performed At This result has an attachment that is n ot available. Performing Organization Address [facility] one Number [facility], [address] [place] [address] * Lactate Dehydrogenase (LD), Pleural Fluid (09/17/2019 4:36 PM CDT) Lactate Dehydrogenase 99 See Note: U/L [facility] (LD), Pleural Fluid Comment: [facility] Reference Range: TRANSUDATE:<113 EXUDATE: >113 SAMPLE SLIGHTLY ICTERIC. Specimen Body Fluid Narrative Performed At Performing Lab [facility] itute [address] [place] [address] Louie Ortiz MD, PhD, YANELY Performing Organization Address [facility] one Number [facility], [address] [facility] [address] * Comprehensive metabolic panel (09/17/2019 5:15 AM CDT) Only the most recent of 8 results within the time period is included. Protein, Total 6.0 6.0 - 8.3 gm/dL [facility] Albumin 2.9 (L) 3.5 - 5.0 g/dL [facility] Alkaline Phosphatase 402 (H) 40 - 150 U/L [facility] Total Bilirubin 4.6 (H) 0.2 - 1.2 mg/dL [facility] Sodium 139 136 - 145 meq/L [facility] Potassium 3.8 3.5 - 5.1 meq/L [facility] Chloride 112 (H) 98 - 107 meq/L [facility] CO2 19 (L) 22 - 29 meq/L [facility] BUN 14 7 - 21 mg/dL [facility] Creatinine 0.81 0.57 - 1.25 mg/dL [facility] Glucose 121 (H) 70 - 105 mg/dL [facility] Calcium 8.3 (L) 8.4 - 10.2 mg/dL [facility] AST 68 (H) 5 - 34 U/L [facility] ALT 27 6 - 55 U/L [facility] EGFR 69Comment: ESTIMATED GFR IS mL/min/1.[address] [facility] NOT ACCURATE CREATININE [facility] CLEARANCE IN PREDICTING GLOMERULAR FILTRATION RATE. ESTIMATED GFR IS NOT APPLICABLE FOR DIALYSIS PATIENTS. Specimen Blood Narrative Performed At Validation Analyst ID - PIAYA L [facility] Specimen moderately icteric [facility] Performing Organization Address [facility] Ph one Number [address] [address] MEDICAL CENTER * Body fluid culture + gram stain (09/16/2019 12:19 PM FORMS ANALYST) Result No growth [facility] Gram Stain Result <1+ White blood cells seen [facility] Gram Stain Result No organisms seen [facility] Specimen Body Fluid Performing Organization Address [facility] Ph one Number [facility] [address] [address] [facility] * Body fluid cell count with differential (09/16/2019 12:19 PM FORMS ANALYST) Appearance Slightly Hazy (A) Clear [facility] Color Yellow (A) Colorless, Straw [facility] RBCs 109 (H) <=1 /cu mm [facility] Adjusted WBC Count 125 (H) <=5 /cu mm [facility] Lining Cells 1 <=1 /cu mm [facility] % Segs 1 % [facility] % Lymphs 84 % [facility] % Monos 14 % [facility] % Eos 1 % [facility] % Baso 0 % [facility] Container Body Fluid Sterile Vial [facility] Specimen Body Fluid Performing Organization Address City/State/Zipcode Ph one Number [address] [facility] * Cytology (09/16/2019 12:18 PM FORMS ANALYST) Case Report Medical Cytology [facility] H Report [facility] Case: [id number] Authorizing Provider:Shireen Evans MD Collected: 09/16/2019 1218 Ordering Location: [address] Received: 09/18/2019 1334 Service Pathologist: Ag Keating MD Specimen:Pleural, Right DIAGNOSIS RIGHT PLEURAL FLUID (CYTOSPINS [facility] AND CELL BLOCK): [facility] - SUSPICIOUS FOR MALIGNANCY - FEATURES CONSISTENT WITH/SUGGESTIVE OF THIS PATIENT'S PRIOR DIAGNOSIS OF ADENOCARCINOMA OF THE PANCREAS ((SEE COMMENT) This case and the former pancreas case are discussed with Dr. Shireen Evans on 09/26/2019am. Additional sample is requested, for more definitive diagnosis. Signing Pathologist Direct Phone Line: [phone] COMMENT Very rare atypical slides are [facility] noted in the cytospin slides. [facility] They're quite atypical and suspicious for malignancy, and consistent with this patient's history of pancreatic adenocarcinoma ([id number],reviewed again on 09/26/[address] Keating and Alex, and designated positive for malignancy as well. (see amended report) Attempts at immunohistochemical stains are not successful, due to insufficient cellular material. Suggest additional samples if clinically indicated. CPT Code(s) 59852, [address]39[address] [facility] CLINICAL DATA Right pleural effusion, recent [facility] diagnosed with pancreatic [facility] cancer (see [id number]) SPECIMEN SOURCE RIGHT PLEURAL FLUID [facility] DESCRIPTION 60 mls deonte fluid; 4 [facility] cytospins, cell block [facility] Collected: [id number] Received: [id number] STATEMENT OF ADEQUACY Satisfactory [facility] SPECIAL STUDIES The interpretation of this [facility] case included the use of [facility] immunohistochemistry or special stains. Control Slides Examined: In-house known positive controls were evaluated along with the test tissue. These control slides run alongside of the patients sample show appropriate staining. Internal positive and negative controls when available are evaluated Immunohistochemistry technical testing was performed at [facility], Pathology Laboratory where it was developed and [...] complexity clinical laboratory testing. Gross assessment was [facility] ELENAS [facility] performed at [place], Department of [facility] Pathology, [address] [place] [address], Technical component was [facility] performed at [place], Department of [facility] Pathology, [address] [place] [address], Professional component [facility] was performed at Center, Department of [facility] Pathology, [address] [place] [address], Specimen Body Fluid Narrative Performed At This result has an attachment that is n ot available. Performing Organization Address City/[facility]/Zipcode Ph one Number [address] [address] MEDICAL CENTER * Manual Differential (09/14/2019 4:17 AM FORMS ANALYST) Only the most recent of 6 results within the time period is included. % Neutros 79 % [facility] % Lymphs 18 % [facility] % Eos 3 % [facility] # Neutros 9.95 (H) 1.56 - 6.13 K/ul [facility] # Lymphs 2.27 1.18 - 3.74 K/ul [facility] # Eos 0.38 (H) 0.04 - 0.36 K/uL [facility] Total Counted 100 [facility] Platelet Morphology Normal [facility] Toxic Granulation Present [facility] Polychromasia 1+ few [facility] Hypochromia 1+ few [facility] Anisocytosis 1+ few [facility] Macrocytes 1+ few [facility] Artifact Present [facility] Platelet Conc Decreased [facility] Specimen Blood Narrative Performed At Validation Analyst ID - Virginia Li [facility] User comments: [facility] Slide comments: Performing Organization Address City/State/Zipcode Ph one Number [facility] BCM [address] [place], [place] [phone] [place] [address] * Phosphorus (09/12/2019 4:49 AM FORMS ANALYST) Only the most recent of 8 results within the time period is included. Phosphorus 2.4 2.3 - 4.7 mg/dL [facility] Specimen Blood Narrative Performed At Validation Analyst ID - BARRINGTON Park [facility] Performing Organization Address City/[facility] Ph one [address] [facility] * Potassium (09/09/2019 5:38 PM FORMS ANALYST) Only the most recent of 2 results within the time period is included. Potassium 3.4 (L) 3.5 - 5.1 meq/L [facility] Specimen Blood Narrative Performed At Validation Analyst ID - IHSAN Coy [facility] Performing Organization Address City/[facility] Ph one [address] 0 [phone] [place] [address] * Bilirubin, direct (09/09/2019 5:11 AM FORMS ANALYST) Bilirubin, Direct 10.9 (H)Comment: Specimen 0.1 - 0.5 mg/dL [facility] slightly hemolyzed [facility] Specimen Blood Narrative Performed At Validation Analyst ID - JERMAINE Noonan [facility] Performing Organization Address [facility] Ph one [address] [facility] * Digoxin level (09/09/2019 5:11 AM FORMS ANALYST) Digoxin Lvl 0.4 (L) 0.8 - 2.0 ng/mL [facility] Specimen Blood Narrative Performed At Validation Analyst ID - ARMANDO [facility] Performing Organization Address City/[facility] Ph one [address] [facility] * Blood gas, arterial (09/09/2019 3:08 AM FORMS ANALYST) Only the most recent of 2 results within the time period is included. pH, Arterial 7.47 (H) 7.35 - 7.45 [facility] pCO2, Arterial 28 (L) 35 - 45 mmHg [facility] pO2, Arterial 78 (L) 80 - 90 mmHg [facility] O2 Sat, Arterial 96.5 96.0 - 97.0 % [facility] HCO3, Arterial 20 (L) 21 - 29 mmol/L [facility] Base Excess, Arterial -2.9 (L) -2.0 - 3.0 mmol/L [facility] Patient Temperature 36.8 C [facility] FIO2 28.0 % [facility] Specimen Blood, Arterial Performing Organization Address City/State/Zipcode Ph one Number [address] [facility] * XR abdomen / KUB 1 view (09/09/2019 2:16 AM FORMS ANALYST) Specimen Narrative Performed At FINAL REPORT RIS [...] External Ris In - 09/09/2019 2:41 AM FORMS ANALYST FINAL REPORT RAD, ABDOMEN/KUB, 1 VIEW AP [...] Verified Date/Time: 09/09/2019 02:38:19 Performing Organization Address [facility] Ph one Number [facility] * ECHOCARDIOGRAM REPORT - SCAN (09/08/2019 9:12 PM FORMS ANALYST) Narrative Performed At This result has an attachment that is n ot available. * Blood Culture - Routine (Right Venipuncture) (09/08/2019 4:48 PM FORMS ANALYST) Only the most recent of 6 results within the time period is included. Result No growth in 5 days [facility] Specimen Blood Performing Organization Address [facility]/The [facility] one Number [address] [facility] * Clostridium difficile [facility] Toxin (09/08/2019 4:30 PM FORMS ANALYST) C. Difficle Toxin Negative Negative [facility] C. Difficile GDH Antigen NegativeComment: No indication Negat harvey [facility] of Clostridium difficile [facility] infection and no colonization. Discontinue enteric isolation and therapy. Specimen Stool Narrative Performed At Testing performed by Alere Rapid Cassette Assay.F or GDH, published [facility] sensitivity of the assay is 98.7% ralph red to cytotoxicity testing.For Toxin [facility] AB, published sensitivity is 87.8% and specificity 99.4% compared to cytotoxicity testing. Verification of kit performance was don e by the [facility] Microbiology Lab prior to clinical use. Performing Organization Address [facility] Ph one Number [address] 7[address] 0 [phone] [address] * Heparin antibody (09/08/2019 3:53 PM FORMS ANALYST) Heparin Ab Negative Negative [facility] Heparin Antibody Optical 0.107 <0.400 [facility] Density [facility] 4T Total Score 5 [facility] Specimen Blood Narrative Performed At Probability of HIT based on scoring system: [facility] 6-8 = High probability; 4-5 = intermediate probabilit y; 0-3 = low probability [facility] Performing Organization Address City/[facility] Ph one Number [address] 0 [phone] [place] [address] * Lactic Acid, Arterial (09/08/2019 1:17 PM FORMS ANALYST) Only the most recent of 2 results within the time period is included. Lactate, Art 2.1 0.5 - 2.2 mmol/L [facility] Specimen Blood, Arterial Narrative Performed At Validation Analyst ID - PIAYA L [facility] Specimen moderately icteric [facility] Performing Organization Address City/[facility] Ph one [address] 770 0 [phone] [place] [address] * Fibrinogen (09/08/2019 8:35 AM FORMS ANALYST) Fibrinogen 784 (H) 225 - 434 mg/dl [facility] Specimen Blood Performing Organization Address City/[facility]/Zipcode Ph one Number [address] 7703 0 [phone] [place] [address] * Lactate dehydrogenase (LDH) (09/08/2019 8:35 AM FORMS ANALYST) LDH 246 (H) 125 - 220 U/L [facility] Specimen Blood Narrative Performed At Validation Analyst ID - PIAYA L [facility] Performing Organization Address City/[facility]/Zipcode Ph one [address]703 0 [phone] [address] * Haptoglobin (09/08/2019 8:35 AM FORMS ANALYST) Haptoglobin 136 14 - 258 mg/dL [facility] Specimen Blood Narrative Performed At Validation Analyst ID - PIILENE Palacio [facility] Performing Organization Address City/State/Zipcode Ph one Number [facility] [address] [place] [address] 0 [phone] [address] * US Hepatic Portal Vessel with Doppler (09/07/2019 9:00 PM FORMS ANALYST) Specimen Narrative Performed At FINAL REPORT Scaffold HISTORY : Persistent mild intrahepatic prominence, right [...] Verified Date/Time: 0 14:01:36 Reading Location: [facility] C013W Consult Reading Room Procedure Note Interface, External Ris In - 09/08/2019 2:01 PM FORMS ANALYST FINAL REPORT HISTORY : Persistent mild intrahepatic [...] 2. Gallbladder sludge. No evidence of ac robinson cholecystitis. 3. Pancreatic head mass. 4. Patent hepatic vasculature with judie l directional flow. Signed: Jose Alberto Turner MD Report Verified Date/Time: 09/08/2019 14:01:36 Reading Location: [facility] B1 C013W Consult Reading Room Performing Organization Address City/State/Zipcode Ph one Number GE RIS * 2D Echo W/Doppler(CW/PW/Color) (09/07/2019 2:48 PM FORMS ANALYST) Ejection Fraction [facility] ECHO HEARTLAB [facility] Specimen Narrative Performed At Transthoracic Echocardiography Report (TTE) [facility] ECH O HEARTLAB Demographics [facility] Patient Name MAURA TONY Date of Study 09/07/2019 OJ [id number] Gender Female Visit Number [id number] Unknown [id number] Room Number 7303 Number Date of Birth1940 Referring Physician Gale Mckenna MD Age79 year(s)Counter Caser Laz Arauz, InterpretingGale Mckenna MD RDCSPhysician Mecca [...] External Ris In - 09/08/2019 7:49 AM FORMS ANALYST Transthoracic Echocardiography Report (TTE) Demographics Patient Name MAURA TONY Date of Study 09/07/2019 OJ Gender Female Visit Number [id number] Race Unknown Room Number 7303 Number Date of 1940 Referring Physician Gale Mckenna MD Age 79 year(s) Counter Caser Laz Blas Egg Candler Marilee Arauz, Interpreting Gale Mckenna MD [facility] Physician Mecca Lux MD Procedure Type [...] LVOT CI: 3.91 l/min/m^2 Performing Organization Address [facility] one [facility] ECHO HEARTLAB MKCKESSON CPACS * Platelet count (09/07/2019 1:35 PM FORMS ANALYST) Platelets 80 (L) 150 - 450 K/CU MM [facility] Specimen Blood Narrative Performed At Validation Analyst ID - [id number] [facility] Performing Organization Address [facility] one Number [address] [facility] * Hemoglobin A1c (09/06/2019 8:17 PM FORMS ANALYST) Hemoglobin A1C 6.5 (H) 4.3 - 6.1 % [facility] Specimen Blood Performing Organization Address [facility] one [address] [facility] * Iron, TIBC, % sat. (without ferritin) (09/06/2019 4:08 PM FORMS ANALYST) Iron 12.0 (L) 40.0 - 160.0 ug/dL [facility] TIBC 236 (L) 250 - 450 ug/dL [facility] Iron % Saturation 5 (L) 20 - 55 % [facility] Specimen Blood Narrative Performed At Validation Analyst ID - ADMIN [facility] Performing Organization Address City/[facility] Ph one Number [address] 0 [phone] [place] [address] * Ferritin (09/06/2019 4:08 PM FORMS ANALYST) Ferritin 391 (H) 5 - 275 ng/mL [facility] Specimen Blood Narrative Performed At Validation Analyst ID - ADMIN [facility] Performing Organization Address [facility] Ph one Number [place] [address] 0 [phone] [address] * Reticulocyte count (09/06/2019 1:18 PM FORMS ANALYST) % Retic 5.3 (H) 0.5 - 1.7 % [facility] Specimen Blood Narrative Performed At Validation Analyst ID - [id number] [facility] Performing Organization Address [facility] Ph one Number [place] [address] 0 [phone] [address] * Sodium, random urine (09/06/2019 12:29 PM FORMS ANALYST) Sodium Urine 58 meq/L [facility] Specimen Urine Narrative Performed At Reference Range: No Normals [facility] Validation Analyst ID - DB [facility] Performing Organization Address City/[facility] Ph one Number [place] [address] 0 [phone] [address] * Procalcitonin (09/06/2019 9:48 AM FORMS ANALYST) Procalcitonin 39.98 (HH) <0.05 ng/mL [facility] Specimen Blood Narrative Performed At SEPSIS RISK (ng/mL) [facility] Low:0.05-0.50 [facility] Intermediate: 0.51-2.00 High: >=2.01 Performing Organization Address City/State/Zipcode Ph one Number [facility] [address] [place], [place] [address] * CT abdomen pelvis without contrast (09/06/2019 8:00 AM FORMS ANALYST) Specimen Narrative Performed At FINAL REPORT Scaffold TECHNIQUE: CT of the abdomen and pelvis [...] Verified Date/Time: 0 10:46:13 Reading Location: [facility] C013Y CT Body Reading Room Procedure Note Interface, External Ris In - 09/06/2019 10:48 AM FORMS ANALYST FINAL REPORT TECHNIQUE: CT of the abdomen [...] Verified Date/Time: 09/06/2019 10:46:13 Reading Location: [facility] C013Y CT Body Reading Room Performing Organization Address City/[facility] Ph one Number RIS * Ketones, blood (09/06/2019 5:26 AM FORMS ANALYST) Only the most recent of 2 results within the time period is included. Ketones, Blood 0.2 <0.4 mmol/L [facility] Specimen Blood Performing Organization Address [facility] Ph one Number [place] [address] [facility] * Blood Culture Panel(BioFire) (09/06/2019 1:55 AM FORMS ANALYST) LISTERIA MONOCYTOGENES Not detected Not detected [facility] STAPHYLOCOCCUS Not detected Not detected [facility] STAPHYLOCOCCUS AUREUS Not detected Not detected [facility] Streptococcus Detected (A) Not detected [facility] Comment: [facility] First line therapy: Vancomycin De-escalate based on susceptibilities Reference Range: Not Detected STREPTOCOCCUS AGALACTIAE Not detected Not detected [facility] (GROUP [facility]) [facility] STREPTOCOCCUS PNEUMONIAE Detected (A) Not detected [facility] Comment: [facility] First line therapy: Ceftriaxone If meningitis, add vancomycin while awaiting susceptibilities Reference Range: Not Detected Streptococcus pyogenes Not detected Not detected [facility] (Group A) [facility] ACINETOBACTER BAUMANNII Not detected Not detected [facility] HAEMOPHILUS INFLUENZAE Not detected Not detected [facility] NEISSERIA MENINGITIDIS Not detected Not detected [facility] ENTEROBACTERIACEAE Detected (A) Not detected [facility] ENTEROBACTER CLOACOE Detected (A) Not detected [facility] COMPLEX Comment: [facility] Enterobacter cloacae complex KPC not detected (a carbapenamase gene) First-line therapy: Cefepime or Meropenem De-escalate based on susceptibilities Reference Range: Not Detected KLEBSIELLA OXYTOCA Not detected Not detected [facility] KLEBSIELLA PNEUMONIAE Not detected Not detected [facility] PROTEUS [facility] SERRATIA MARCESCENS Not detected Not detected [facility] JAREK ALBICANS Not detected Not detected [facility] JAREK GLABRATA Not detected Not detected [facility] JAREK KRUSEI Not detected Not detected [facility] JAREK PARAPSILOSIS Not detected Not detected [facility] JAREK TROPICALIS Not detected Not detected [facility] ESCHERICHIA COLI Not detected Not detected [facility] METHICILLIN-RESISTANCE [facility] VANCOMYCIN-RESISTANCE [facility] CARBAPENEM-RESISTANCE Not detected Not detected [facility] ENTEROCOCCUS Not detected Not detected [facility] PSEUDOMONAS AERUGINOSA Not detected Not detected [facility] Specimen Blood Narrative Performed At Other bacteria and resistance markers not targeted by this PCR panel cannot be [facility] excluded; therefore clinical correlation and follow u p of serology, culture [facility] results, and other molecular studies is required. The results are not intended to be used as the sole means for clinic al diagnosis or patient management decisions. This sample was tested at e [facility] Molecular Diagnostics Laboratory using the Allclasses Blood Cultu re ID Panel. It is FDA cleared and has been verified and approved by the [facility] Molecular Diagnostics Laboratory for clinical use. This laboratory is CLIA-c ertified and [employer] (CAP)-accredited to [facility] high complexity testing. Performing Organization Address City/State/Zipcode Ph one Number [address] [facility] * Urinalysis w/Microscopic (09/06/2019 1:55 AM FORMS ANALYST) Color, UA [place] [facility] Clarity, UA Hazy [facility] Specific [place], UA 1.019 1.001 - 1.035 [facility] pH, UA 6.0 5.0 - 8.0 [facility] Protein, UA 50 mg/dL (A) Negative [facility] Glucose, UA 30 mg/dL (A) Negative [facility] Ketones, UA Negative Negative [facility] Bilirubin, UA Positive (A) Negative [facility] Blood, UA Trace (A) Negative [facility] Nitrite, UA Negative Negative [facility] Leukocytes, UA Negative Negative [facility] Urobilinogen, UA 3.0 (H) 0.2 - 1.0 mg/dL [facility] RBC, UA 21 /HPF [facility] WBC, UA 10 /HPF [facility] Squam Epithel, UA 4 /HPF [facility] Granular Casts, UA 5 /LPF [facility] Amorphous Crystals Few [facility] Specimen Source [facility] Specimen Urine Narrative Performed At Validation Analyst ID - [auto] [facility] Validation Analyst ID - [facility] Performing Organization Address City/State/[facility] Ph one Number [address] [facility] * Urine culture (09/06/2019 1:55 AM FORMS ANALYST) Result See comment [facility] Specimen Urine Narrative Performed At >100,000 col/mL skin nieves [facility] Performing Organization Address City/State/Zipcode Ph one Number [address] 0 [phone] [place] [address] * Ammonia (09/06/2019 1:26 AM FORMS ANALYST) Ammonia 55 18 - 72 mol/L [facility] Specimen Blood Narrative Performed At Validation Analyst ID - JOY M [facility] Performing Organization Address City/State/Zipcode Ph one Number [address] [facility] * Cardiac Enzymes - CPK (09/06/2019 1:10 AM FORMS ANALYST) Total CK 66 29 - 200 U/L [facility] Specimen Blood Narrative Performed At Validation Analyst ID - JOY M [facility] Performing Organization Address City/State/Zipcode Ph one Number [facility] [address] [phone] [facility] * ECG/EKG Interpretation (09/06/2019 12:47 AM FORMS ANALYST) Narrative [place] [address]:20 AM ECG/EKG Interpretation Date/Time: 09/06/2019 1:28 AM Performed by: Julien Krishna MD Authorized by: Julien Krishna M D The ECG was interpreted by ED physician . This ECG was not compared with previous ECG(s).The ECG is interpreted as sinus rhythm. Rate is normal rate. Kewadin is left. Clinical Impression: non-specific ECGEC G reviewed and does not meet STEMI criteria. Patient tolerance: Patient to lerated the procedure well with no immediate complications * CRITICAL CARE (09/06/2019 12:47 AM FORMS ANALYST) Narrative [place]formed [place] [address]:20 [...] 1 or 2 views (09/06/2019 12:15 AM FORMS ANALYST) Specimen Narrative Performed At FINAL REPORT GE [...] External Ris In - 09/06/2019 1:17 AM FORMS ANALYST FINAL REPORT RAD, PELVIS, 1 OR 2 [...] brain without IV contrast (09/05/2019 11:32 PM FORMS ANALYST) Specimen Narrative Performed At FINAL REPORT [facility] EXAM: CT head without contrast. CLINICAL HISTORY: [...] External Ris In - 09/05/2019 11:43 PM FORMS ANALYST FINAL REPORT EXAM: CT head without contrast. [...] Performing Organization Address City/State/Zipcode Ph one Number Scaffold * REPORT OF PROCEDURE - ENDOSCOPY URL (08/18/2019 2:04 PM FORMS ANALYST) Narrative Performed At This result has an attachment that is n ot available. * [place] ERCP (08/18/2019 2:00 PM FORMS ANALYST) Specimen Narrative Performed At FINAL REPORT Scaffold A fluoroscopic unit was utilized for a [...] External Ris In - 08/23/2019 7:27 AM FORMS ANALYST FINAL REPORT A fluoroscopic unit was utilized for a procedure performed in the operating room. No interpretation was requested. Please refer to the operative report regarding findings. Please refer to PACS for patient radiation dose information. Signed: JR Valente Robert MD Report Verified Date/Time: 08/23/2019 07:25:48 Reading Location: [facility] Reading Room Performing Organization Address City/[facility] Ph one Number [facility] * FINE NEEDLE ASPIRATE (FNA) REQUEST (08/18/2019 1:44 PM FORMS ANALYST) Cytology See Separate Report [facility] Specimen Fine Needle Aspirate - Pancreas, Head Performing Organization Address City/[facility] Ph one Number [place] [address] [facility] * Fine Needle Aspirate by Clinician (08/18/2019 1:44 PM FORMS ANALYST) Case Report [facility] Case: [id number] Authorizing Provider:Teagan Rock MDCollected: 08/18/2019 1344 Ordering Location: [address] Received: 08/21/2019 0949 Service Pathologist: Ag Keating MD Specimen:Pancreas, Head ADDENDUM Addendum, additional review [facility] with cytologic sample [id number]. [facility] PANCREAS, HEAD MASS FNA BY CLINICIAN (CYTOSPINS AND CELL BLOCK OF ASPIRATE): - POSITIVE FOR MALIGANCY -FEATURES CONSISTENT WITH INVASIVE PANCREATIC CARCINOMA, LARGE DUCTAL TYPE, OR BILIARY TYPE ADENOCARCINOMA. Additional review with Dr. Mihir Johnson and Jason Keating. DIAGNOSIS PANCREAS, HEAD MASS FNA BY [facility] CLINICIAN (CYTOSPINS AND CELL [facility] BLOCK OF ASPIRATE): - HIGHLY SUSPICIOUS FOR INVASIVE PANCREATIC CARCINOMA, LARGE DUCTAL TYPE, OR BILIARY TYPE ADENOCARCINOMA. SEE COMMENT Signing Pathologist Direct Phone Line: [phone] COMMENT The cytologic features of both [facility] the cytospin preparations and [facility] the cell block operations show strips [...] and endoscopic/radiologic correlation is needed. Two other [facility] pathologists also favor a diagnosis of positive for malignancy this case (YUNIER, NS). Additional levels on three more slides in this case do not reveal more definitive features. CPT Code(s) 87537, 71903 [facility] CLINICAL DATA (2.9 x 3.7 cm) irregular mass [facility] in the pancreatic head; [facility] localized biliary stricture; many thirds of the main bile duct and right and left hepatic ducts are dilated. A sphincterotomy was performed SPECIMEN SOURCE PANCREAS, HEAD MASS FNA [facility] GROSS DESCRIPTION 25 mls in cytorich red; [address] [facility] cytospins, cell block [facility] Collected: [id number] Received: [id number] MICROSCOPIC DESCRIPTION Performed. [facility] Gross assessment was [facility] performed at [place], Department of [facility] TER Pathology, [address] [place] [id number], Technical component was [facility] performed at [place], Department of [facility] TER Pathology, [address] [place] [id number], Professional component [facility] was performed at Center, Department of [facility] MEDICAL [address] TER Pathology, [address] [facility], [place] [address], Specimen Fine Needle Aspirate - Pancreas, Head Narrative Performed At This result has an attachment that is n ot available. Performing Organization Address City/State/Zipcode Ph one Number [facility] [address] [place], [place] [address] MEDICAL CENTER * MR abdomen without IV contrast MRCP (08/17/2019 2:13 AM FORMS ANALYST) Specimen Narrative Performed At FINAL REPORT Scaffold TECHNIQUE: MRI of the abdomen and MRCP [...] Report Verified Date/Time: 0 11:16:03 Reading Location: [address] Body Reading Room Procedure Note Interface, External Ris In - 08/17/2019 11:18 AM FORMS ANALYST FINAL REPORT TECHNIQUE: MRI of the abdomen [...] Report Verified Date/Time: 08/17/2019 11:16:03 Reading Location: [facility] B1 C013Y CT Body Reading Room Performing Organization Address City/State/Zipcode Ph one Number GE RIS after 04/12/2019 Insurance Payer Benefit Subscriber ID Type Phone Address Plan / Group [employer] xxxxxxxxxxx MEDICARE ADV Advance Directives For more information, please contact: [address] [address] Date Inactivated Comments Code Status [...]
[2020-04-12] MEDS ORDERED: SODIUM CHLORIDE 0.9% 50ML 50 ML ONE (21:41)
[2020-04-12] MEDS ORDERED: IOPAMIDOL 370 MG/ML 200 ML INFUS..BTL INJ ONE (21:41)
--- OUTSIDE RECORDS SUMMARY | 2020-04-12 21:41 | XMS REPORT | Continuity of Care Document ---
Author Author [facility] t Organization [facility] Address [address] [place] [address] Phone Unavailable Care Team Providers Care Integrated Logistics Operations Manager Name Role Phone NONSTAFF PCP Unavailable Isiah CORTEZ, Melyssa Mccann Attphys [phone] Jeanna CORTEZ, Patti Attphys [phone] Jj CORTEZ, Eulalio Dyer Att[facility] [phone] Shweta CORTEZ, Angy Guzman Attphys Bernabe CORTEZ, Grzegorz Solorio Attphys MELYSSA HERRMANN Attphys Unavailable Juan Luis Hills MD Attphys Michael Reagan DO Attphys [phone] Abdifatah CORTEZ, Carlota Gorman Attphys Sebastien CORTEZ, Shankar Attphys Juan Luis HILLS Attphys Unavailable Hemant CORTEZ, Cade Attphys CADE MARCOS Attphys Unavailable ДМИТРИЙ KRISHNA Attphys Unavailable Tomi CORTEZ, Дмитрий Victoria Attphys Shirlene CORTEZ, Karina Vásquez Attphys Yuniel CORTEZ, Sepideh Escobedo Attphys Grabiel MCFADDEN Attphys Unavailable Grabiel Mcfadden DO Grzegorz Attphys Sommer CORTEZ, Skyla Attphys Solitario CORTEZ, Terrence Pyle Attphys [phone] Radha ISRAEL, Matias Bhaktael Attphys [phone] Shweta CORTEZ, Duke Jonesg Attphys WILLY CHAN Attphys Unavailable JJ, TYRESESONIA DYER Admphys Unavailable MICHAEL REAGAN Admphys Unavailable HEMANT, CADE Admphys Unavailable SEPIDEH BRICE Admphys Unavailable SOLITARIO, TERRENCE JESUS Admphys Unavailable JONATAN MANRIQUE Admphys Unavailable Payers Payer Name Policy Type Policy Number Effective Date Expiration Date Caesar vera [employer] MEDICARE ADVxxxxxxxxxxx xxxxxxxxxxx [facility] Kelsey Care Medicare Advantage [id number] [facility] Advance Directives Directive Decision Effective Date Termination Date Comments Sour ce Partial Code This code status was determ ined by: Patient Drug Protocol After Arrest Occurs? Yes Mechanical Ventilation with Intubation? No Bag/Mask? Yes Internal/External Pacemaker? Yes Transfer to Critical Care? Yes Chest Compressions? Yes Defibrillation/Cardioversion? Yes Yes 00:00:00 2019-10-28 00:00:00 [facility] Problems Condition Name Condition Details Condition Category Status Onset Date Resolution Date Last Treatment Date Treating Clinician Comments Source Paroxysmal A-fib Paroxysmal A-fib Disease Active 2019-10-27 00:00:00 [facility] Epigastric pain Epigastric pain Disease Active 2019-10-26 00:00:00 [facility] Melena Melena Disease Active 2019-10-26 00:00:00 [facility] Recurrent right pleural effusion Recurrent right pleural effusio n Disease Active 2019-10-04 00:00:00 [facility] Dyspnea and respiratory abnormality Dyspnea and respiratory abno rmality Disease Active 2019-10-03 00:00:00 [facility] Bacteremia due to Enterobacter species Bacteremia due to Ent erobacter species Disease Active 2019-09-12 00:00:00 [facility] Encephalopathy in sepsis Encephalopathy in sepsis Disease Acti ve 2019-09-12 00:00:00 [facility] 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 of [place] heart without angina 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 Disease Active 2019-09-12 00:00:00 [facility] Dysphagia Dysphagia Disease Active 2019-09-12 00:00:00 [facility] Severe protein-calorie malnutrition Severe protein-calorie malnu trition Disease Active 2019-09-12 00:00:00 [facility] Physical deconditioning Physical deconditioning Disease Active 2019-09-12 00:00:00 [facility] Severe sepsis Severe sepsis Disease Active 2019-09-11 00:00:00 [facility] Acute metabolic encephalopathy Acute metabolic encephalopathy Disea se Active 2019-09-11 00:00:00 [facility] Acute kidney injury superimposed on CKD Acute kidney injury superimposed on CKD Disease Active 2019-09-11 00:00:00 [facility] Metabolic acidosis Metabolic acidosis Disease Active 2019-09-11 00:00:0 0 [facility] Atrial fibrillation with rapid ventricular response At rial fibrillation with rapid ventricular response Disease Active 2019-09-08 00:00:00 [facility] Demand ischemia of myocardium Demand ischemia of myocardium Disease Active 2019-09-08 00:00:00 [facility] Thrombocytopenia Thrombocytopenia Disease Active 2019-09-08 00:00:00 [facility] Dehydration Dehydration Disease Active 2019-09-06 00:00:00 [facility] Hyperbilirubinemia Hyperbilirubinemia Disease Active 2019-09-06 00:00:0 0 [facility] Diabetic ketosis Diabetic ketosis Disease Active 2019-09-06 00:00:00 [facility] Altered mental status Altered mental status Disease Active 202 00:00:00 [facility] Pancreatic adenocarcinoma Pancreatic adenocarcinoma Disease Ac tive 2019-09-06 00:00:00 [facility] Syncope and collapse Syncope and collapse Disease Active 00:00:00 [facility] Jaundice Jaundice Disease Active 2019-08-16 00:00:00 [facility] 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, 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, with long-term current use of insulin Disease Active 2016-11-16 00:00:00 Overview: a1c 14.8 (11/2016) [facility] Jarek infection of genital region Jarek infection of genital region Disease Active 2016-11-16 00:00:00 [facility] Type 2 diabetes mellitus with ketoacidos is without coma, without long-term current use of insulin Type 2 diabetes mellitus with ketoacidos is without coma, without long-term current use of insulin Disease Active 2016-11-15 00:00: 00 [facility] CAD (coronary artery disease) CAD (coronary artery disease) Disease Active 2015-02-19 00:00:00 [facility] Allergies, Adverse Reactions, Alerts Allergy Name Allergy Type Status Severity Reaction(s) Onset Date Inacti ve Date Treating Clinician Comments Source Penicillin Allergy to Substance Active Mild 2017-08-14 00:00:00 [facility] Fpvhtmq-Vrs-Dzj Reductase Inhibitor Allergy to Substance Active M ild 2017-08-14 00:00:00 [facility] Atorvastatin Calcium Propensity to adverse reactions Active Other (See Comments) 2016-11-14 00:00:00 Vitamin D may have be en low at the time. [facility] Choline Fenofibrate Propensity to adverse reactions Active Other (See Comments) 2016-11-14 00:00:00 [facility] Atorvastatin Drug Allergy Active 2014-08-31 00:00:00 [facility] Lisinopril Drug Intolerance Active 2014-08-31 00:00:00 cough [facility] Niacin Preparations Drug Intolerance Active 2014-08-31 00:00:00 Leg cramps [facility] Penicillins Drug Allergy Active 2014-08-31 00:00:00 [facility] Pravastatin Drug Allergy Active 2014-08-31 00:00:00 [facility] Xgmjnyi-Hvw-Mir Reductase Inhibitors Drug Allergy Active 2014-08-31 00:00:00 [facility] Fenofibric Acid (Choline) Drug Allergy Active 2014-08-31 00 :00:00 [facility] Ezetimibe Drug Allergy Active 2014-08-31 00:00:00 [facility] Family History Family Member Diagnosis Comments Start Date Stop Date Source Natural mother Diabetes [facility] Natural sister Diabetes [facility] Social History Social Habit Start Date Stop Date Quantity Comments Source Sex Assigned At [facility] Cigarettes smoked current (pack per day) - Reported 00:00:00 2019-10-27 00:00:00 [facility] Cigarette pack-years 2019-10-27 00:00:00 2019-10-27 00:00:00 [facility] History of tobacco use 1998-07-12 00:00:00 Current smoker [facility] Smoking Status Start Date Stop Date Source Former smoker 2019-10-27 00:00:00 2019-10-27 00:00:00 [facility] Medications Ordered Medication Name Filled Medication Name Start Date Stop Da te Current Medication? Ordering Clinician Indication Dosage Frequency Signature (SIG) Comments Components Source hydroCHLOROthiazide (HYDRODIURIL) 25 MG tablet 2019-10-26 20:15: 22 Yes 25mg Take 25 mg by mouth every other day. [facility] furosemide (LASIX) 40 MG tablet 2019-10-26 20:14:42 Yes 40mg QD Take 40 mg by mouth daily. [facility] omega-3 acid ethyl esters (LOVAZA) 1 gram capsule 2019-10-08 14:32:32 2019-10-08 00:00:00 No 2g Q.5D Take 2 g by mouth 2 (two) times daily. [facility] ergocalciferol (VITAMIN D2) 50,000 unit capsule 2019-10-08 14:32:2019-10-08 00:00:00 No [id number] Q.5W Take 50,000 Units by mouth twic e a week. [facility] levoFLOXacin (LEVAQUIN) 750 MG tablet 2019-09-18 00:00 :00 2019-09-19 23:59:00 No 750mg QD Take 1 tablet (750 mg total) by mouth da angie for 1 day. [facility] levoFLOXacin (LEVAQUIN) 750 MG tablet 2019-09-16 00:00 :00 2019-09-17 00:00:00 No 750mg Take 1 tablet ( 750 mg total) by mouth every other day for 1 dose. [facility] isosorbide mononitrate (IMDUR) 30 MG 24 hr tablet 2019-09-14 09:2019-09-14 00:00:00 No 30mg Q.5D Take 30 mg by mouth 2 (two) times daily . [facility] r insulin lispro (HUMALOG) 100 unit/mL injection 2 09:2019-09-14 00:00:00 No 5U Inject 5 Units subcutaneously 3 (three) times daily before meals. [facility] clopidogrel (PLAVIX) 75 mg tablet 2019-09-14 09:2019 00:00:00 No 75mg QD Take 75 mg by mouth daily. [facility] alendronate (FOSAMAX) 35 MG tablet 2019-09-14 09: 00:00:00 No 35mg Take [address] [facility] every 7 days. Take in the morning with a full glass of water, on an empty stomach, and do not take anything else by mouth or lie down for the next 30 min. [facility] atenolol (TENORMIN) 25 MG tablet 2019-09-14 09:2019-09 00:00:00 No 25mg QD Take 25 mg by mouth daily. [facility] cilostazol (PLETAL) 100 MG tablet 2019-09-14 09::2019 00:00:00 No 100mg Q.5D Take 100 mg by mouth 2 (two) times daily . [facility] TiZANidine (ZANAFLEX) 4 MG capsule 2019-09-14 09:03: 00:00:00 No 4mg Take 4 mg by mouth every night as needed for Muscle spasms . [facility] losartan (COZAAR) 50 MG tablet 2019-09-14 09:03:2019-09-14 00 :00:00 No 50mg QD Take 50 mg by mouth daily. C [facility] venlafaxine (EFFEXOR-XR) 150 MG 24 hr capsule 20 28-09-04 09:03:2019-09-14 00:00:00 No 150mg QD Take 150 mg by mouth daily. [facility] gabapentin (NEURONTIN) 100 MG capsule 2019-09-14 09: :2019-09-14 00:00:00 No 100mg Q.[id number] Take 100 mg b y mouth 3 (three) times daily. [facility] potassium chloride (KLOR-CON) 10 MEQ CR tablet 2 09:2019-09-14 00:00:00 No 10meq Q.5D Take 10 mEq by mouth 2 (two) ti mes daily. [facility] insulin glargine (LANTUS) 100 unit/mL (3 mL) InPn 2019-09-14 00:00:00 2020-09-13 23:59:00 No 10U QD Inject 10 Units subcutaneously every morning. [facility] r insulin lispro (HUMALOG) 100 unit/mL injection 2 00:00:00 2020-09-13 23:59:00 No 5U Inject 5 Units subcutaneously 3 (three) times daily as needed for High Blood Sugar (Take only if BG >150 before meals.). [facility] isosorbide mononitrate (IMDUR) 30 MG 24 hr tablet 2019-09-14 00:00:00 2020-09-13 23:59:00 No 15mg QD Take 0.5 tablets (15 mg total) by mouth daily Increase to 30 mg daily if SBP >160 or DBP >110 x 2 days.. [facility] mirtazapine (REMERON) 15 MG tablet 2019-09-14 00:00:00 07-14-04 23:59:00 No 15mg QD Take 1 tablet (15 mg total) by mouth nig htly. [facility] amiodarone (PACERONE) 200 MG tablet 2019-09-14 00:00:0 0 2020-09-13 23:59:00 No 200mg QD Take 1 tablet (200 mg total) by mouth da angie. [facility] apixaban (ELIQUIS) 2.5 mg Tab tablet 2019-09-14 00:00: 00 2020-09-13 23:59:00 No 2.5mg Q.5D Take 1 tablet (2.5 mg total) b y mouth 2 (two) times daily. [facility] metoprolol tartrate (LOPRESSOR) 25 MG tablet 00:00:00 2020-09-13 23:59:00 No 25mg Q.5D Take 1 tablet (25 mg total) by mouth 2 (two) times daily. [facility] ferrous sulfate 325 (65 FE) MG tablet 2019-09-14 00:00 :00 2019-10-08 00:00:00 No 325mg Q.5D Take 1 tablet (325 mg total) b y mouth 2 (two) times daily. [facility] loperamide (IMODIUM) 2 mg capsule 2019-09-14 00:00:00 2019 23:59:00 No 2mg Take 1 capsule ( 2 mg total) by mouth 4 (four) times daily as needed for Diarrhea for up to 10 days. [facility] nystatin (MYCOSTATIN) 100,000 unit/mL suspension 2019-09-14 00:00:00 2019-09-24 23:59:00 No [id number] Q.25D Take 5 mLs (500,000 Units total) by mouth 4 (four) times daily for 10 days. [facility] Magic Mouthwash (NO steroid) oral suspension 00:00:00 2019-09-24 23:59:00 No 5mL Swish and spit 5 mLs every 6 (six) hours as needed (mouth pain) for up to 10 days. [facility] levoFLOXacin (LEVAQUIN) 750 MG tablet 2019-09-14 00:00 :00 2019-09-14 00:00:00 No 750mg Take 1 tablet ( 750 mg total) by mouth every other day for 4 days. [facility] pantoprazole (PROTONIX) 40 MG tablet 2019-09-06 12:24:21 Ye s 40mg QD Take 40 mg by mouth daily. [facility] sertraline (ZOLOFT) 50 MG tablet 2019-09-06 12:24:21 Yes 50mg QD Take 50 mg by mouth daily. [facility] omeprazole (PRILOSEC) 40 MG capsule 2019-09-06 12:22:5 3 2019-09-06 00:00:00 No 40mg QD Take 40 mg by mouth daily. [facility] hydrochlorothiazide (HYDRODIURIL) 25 MG tablet 2 12:21:38 2019-09-06 00:00:00 No 25mg Take 25 mg by mouth every other day . [facility] furosemide (LASIX) 40 MG tablet 2019-09-06 12:21:20 00:00:00 No 40mg QD Take 40 mg by mouth daily. [facility] glimepiride (AMARYL) 2 MG tablet 2019-08-20 00:00:00 2019-09 00:00:00 No 2mg Take 1 tablet (2 mg total) by mouth daily with breakfast. [facility] busPIRone (BUSPAR) 15 MG tablet 2019-08-19 00:00:00 00:00:00 No 15mg Q.[id number] Take 1 tablet (15 mg total) by mouth 3 (three) times daily. [facility] mirtazapine (REMERON) 15 MG tablet 2019-08-19 00:00:00 00:00:00 No 15mg QD Take 1 tablet (15 mg total) by mouth nig htly for 30 days. [facility] insulin glargine 100 unit/mL (3 mL) InPn 2016-11 00:00:00 2019-09-14 00:00:00 No 20U QD Inject 20 Units subcutaneously every morning. [facility] fluticasone (FLONASE) 50 mcg/actuation nasal spray 2015-02 13:15:01 Yes 2{spray} QD 2 sprays by Nasal route daily. [facility] aspirin 81 MG EC tablet 2014-08-31 19:47:07 Yes 81mg QD Take 81 mg by mouth daily. [facility] nitroglycerin (NITROSTAT) 0.4 MG SL tablet 2014-08-31 19:47:[address] 0.4 mg under the tongue every 5 (f harvey) minutes as needed for Chest pain. Put 1 pill under tongue every 5min as needed for chest pain.No more than 3 doses in 15min.Call 911 if pain is unrelieved 5min after 1st dose [facility] Vital Signs Vital Name Observation Time Observation Value Comments Source Systolic blood pressure 2019-10-28 07:00:00 127 mm[Hg] [facility] Diastolic blood pressure 2019-10-28 07:00:00 59 mm[Hg] [facility] Heart rate 2019-10-28 07:00:00 64 /min [facility] Body temperature 2019-10-28 07:00:00 36.67 Anju [facility] Respiratory rate 2019-10-28 07:00:00 18 /min [facility] Oxygen saturation in Arterial blood by Pulse oximetry 10-27 07:00:00 93 /min [facility] Body height 2019-10-26 18:13:00 163 cm [facility] Body weight Measured 2019-10-26 18:13:00 83.008 kg [facility] BMI 2019-10-26 18:13:00 31.24 kg/m2 [facility] Procedures Procedure Date / Time Performed Performing Clinician [facility] e REPORT OF PROCEDURE - ENDOSCOPY SCAN 2019-10-30 09:50:19 Pro vider, Default Scanning [facility] RHYTHM STRIP - SCAN 2019-10-30 09:50:17 Provider, Default Scanni ng [facility] POCT-GLUCOSE METER 2019-10-28 06:14:00 Jeanna Patti [facility] BASIC METABOLIC PANEL (7) 2019-10-28 05:53:00 Daren Meekse caitlyn [facility] CBC W/PLT COUNT & AUTO DIFFERENTIAL 2019-10-28 05:53:00 Stanley jasmine Patti [facility] POCT-GLUCOSE METER 2019-10-28 00:06:00 Jeanna [facility] CREATININE, RANDOM URINE 2019-10-27 21:31:00 [facility] OSMOLALITY, URINE 2019-10-27 21:31:00 Jeanna [facility] URINALYSIS W/ REFLEX URINE CULTURE 2019-10-27 21:31:00 Stanford nielson Patti [facility] POCT-GLUCOSE METER 2019-10-27 17:42:00 Jeanna [facility] POCT-GLUCOSE METER 2019-10-27 13:30:00 Jeanna [facility] REPORT OF PROCEDURE - ENDOSCOPY URL 2019-10-27 12:06:11 Osmin Kidd [facility] UPPER ENDOSCOPY 2019-10-27 11:30:00 Osmin Kidd [facility] POCT-GLUCOSE METER 2019-10-27 08:21:00 Jeanna Patti [facility] BASIC METABOLIC PANEL (7) 2019-10-27 03:27:00 Antonia Yao [facility] PT/APTT 2019-10-27 03:27:00 Antonia Yao [facility] TROPONIN I 2019-10-27 03:27:00 Gomez Byers [facility] HEMOGLOBIN AND HEMATOCRIT 2019-10-27 03:27:00 Antonia Yao [facility] HEMOGLOBIN AND HEMATOCRIT 2019-10-27 01:17:00 Antonia Yao [facility] POCT-GLUCOSE METER 2019-10-26 23:34:00 [facility] TROPONIN I 2019-10-26 23:21:00 Siobhan Herrmann [facility] OCCULT BLOOD, STOOL 2019-10-26 19:18:00 Siobhan Herrmann [facility] ECG 12-LEAD 2019-10-26 19:00:43 Siobhan Herrmann [facility] XR CHEST 1 VIEW PORTABLE/BEDSIDE 2019-10-26 18:30:00 Siobhan Herrmann [facility] XR ABDOMEN 2 VIEWS FLAT AND UPRIGHT 2019-10-26 18:30:00 Siobhan Ace [facility] BASIC METABOLIC PANEL (7) 2019-10-26 18:24:00 Siobhan Herrmann [facility] TROPONIN I 2019-10-26 18:24:00 Siobhan Herrmann [facility] PT/APTT 2019-10-26 18:24:00 Siobhan Herrmann [facility] LIPASE 2019-10-26 18:24:00 Siobhan Herrmann [facility] HEPATIC FUNCTION PANEL 2019-10-26 18:24:00 Siobhan Herrmann [facility] CBC W/PLT COUNT & AUTO DIFFERENTIAL 2019-10-26 18:24:00 Siobhan Ace [facility] RHYTHM STRIP - SCAN 2019-10-11 12:21:47 Provider, Default Ana Cristina [facility] REPORT OF PROCEDURE - ENDOSCOPY SCAN 2019-10-10 10:41:39 Pro vider, Default Scanning [facility] RHYTHM STRIP - SCAN 2019-10-10 10:41:36 Provider, Default Ana Cristina cai [facility] POCT-GLUCOSE METER 2019-10-09 07:21:00 Shankar Crowe [facility] POCT-GLUCOSE METER 2019-10-08 20:10:00 Abdifatah, [facility] POCT-GLUCOSE METER 2019-10-08 16:26:00 Abdifatah, [facility] POCT-GLUCOSE METER 2019-10-08 11:54:00 Abdifatah, [facility] POCT-GLUCOSE METER 2019-10-08 06:59:00 Abdifatah, [facility] POCT-GLUCOSE METER 2019-10-07 20:15:00 Abdifatah, [facility] POCT-GLUCOSE METER 2019-10-07 16:26:00 Abdifatah, [facility] POCT-GLUCOSE METER 2019-10-07 12:18:00 Abdifatah, [facility] POCT-GLUCOSE METER 2019-10-07 06:55:00 Abdifatah, [facility] BASIC METABOLIC PANEL (7) 2019-10-07 03:58:00 Abdifatah Reagan [facility] CBC W/PLT COUNT & AUTO DIFFERENTIAL 2019-10-07 03:58[facility] 2019-10-06 21:56:00 Michelle Leonard [facility] POCT-GLUCOSE METER 2019-10-06 20:06:00 Abdifatah, [facility] POCT-GLUCOSE METER 2019-10-06 16:49:00 Abdifatah Reagan [facility] POCT-GLUCOSE METER 2019-10-06 12:11:00 Abdifatah Reagan I [facility] POCT-GLUCOSE METER 2019-10-06 07:04:00 Abdifatah Reagan [facility] BASIC METABOLIC PANEL (7) 2019-10-06 04:14:00 Emmy Jain [facility] POCT-GLUCOSE METER 2019-10-05 21:18:00 Abdifatah Reagan [facility] POCT-GLUCOSE METER 2019-10-05 16:57:00 Abdifatah Reagan [facility] I [facility] POCT-GLUCOSE METER 2019-10-05 12:17:00 Abdifatah Reagan [facility] POCT-GLUCOSE METER 2019-10-05 07:59:00 Abdifatah Reagan [facility] BASIC METABOLIC PANEL (7) 2019-10-05 04:04:00 Emmy Jain Amanda cai [facility] PROTHROMBIN TIME/INR 2019-10-05 04:04:00 Abdifatah Reagan [facility] CBC W/PLT COUNT & AUTO DIFFERENTIAL 2019-10-05 04:04:00 Abdifatah Reagan [facility] POCT-GLUCOSE METER 2019-10-04 20:48:00 Abdifatah Reagan [facility] POCT-GLUCOSE METER 2019-10-04 16:05:00 Abdifatah Reagan [facility] IR TUNNELED CATH INTRAPERITONEAL 2019-10-04 12:16:00 Romi Jain [facility] POCT-GLUCOSE METER 2019-10-04 09:18:00 Abdifatah Reagan [facility] BASIC METABOLIC PANEL (7) 2019-10-04 03:49:00 Susy, Emmyjanell cai [facility] TROPONIN I 2019-10-04 03:49:00 Emmy Jain [facility] CBC W/PLT COUNT & AUTO DIFFERENTIAL 2019-10-04 03:49:00 Carito Jainiong [facility] POCT-GLUCOSE METER 2019-10-04 00:10:00 [facility] CBC W/PLT COUNT & AUTO DIFFERENTIAL 2019-10-03 19:57:00 Yi Hills [facility] TROPONIN I 2019-10-03 19:20:00 [facility] PT/APTT 2019-10-03 19:20:00 [facility] LACTIC ACID, VENOUS 2019-10-03 19:20:00 [facility] BASIC METABOLIC PANEL (7) 2019-10-03 18:58:00 [place] CH I [facility] MAGNESIUM 2019-10-03 18:58:00 [facility] TROPONIN I 2019-10-03 18:58:00 Reinier [facility] B-TYPE NATRIURETIC FACTOR (BNP) 2019-10-03 18:58:00 [facility] XR CHEST 1 VIEW PORTABLE/BEDSIDE 2019-10-03 18:46:00 Reinier [facility] ECG 12-LEAD 2019-10-03 18:14:14 Reinier [facility] IR TUNNELED DRAINAGE CATHETER PLACEMENT 2019-10-02 17:20:00 Cade Teixeira ma [facility] PROTHROMBIN TIME/INR 2019-10-02 10:23:00 Susannah Goodwin [facility] APTT 2019-10-02 10:23:00 [facility] CBC W/PLT COUNT & AUTO DIFFERENTIAL 2019-10-02 10:23:00 Susannah Goodwin [facility] RHYTHM STRIP - SCAN 2019-09-21 12:31:47 Provider, Default Ana Cristina [facility] RHYTHM STRIP - SCAN 2019-09-19 07:50:29 Provider, Default Scanmigel [facility] REPORT OF PROCEDURE - ENDOSCOPY SCAN 2019-09-19 07:50:21 Pro vider, Default Scanning [facility] LACTATE DEHYDROGENASE (LD), PLEURAL FLUID 2019-09-17 16:36:0 0 Shireen Evans [facility] PROTEIN, TOTAL, PLEURAL FLUID 2019-09-17 16:36:00 Shireen Evans [facility] POCT-GLUCOSE METER 2019-09-17 12:53:00 Tez Abdifatah Rodriguez I [facility] POCT-GLUCOSE METER 2019-09-17 08:59:00 BlakenataliaKeyur fontanezjanell Rodriguez I [facility] COMPREHENSIVE METABOLIC PANEL 2019-09-17 05:15:00 Keyur Reagan janell Blakelyick [facility] CBC W/PLT COUNT & AUTO DIFFERENTIAL 2019-09-17 05:15:00 Keyur Reaganjanell Rodriguez [facility] POCT-GLUCOSE METER 2019-09-16 22:17:00 Keyur Reaganjanell Rodriguez [facility] POCT-GLUCOSE METER 2019-09-16 18:12:00 Keyur Reaganjanell Rodriguez [facility] POCT-GLUCOSE METER 2019-09-16 12:32:00 Keyur Reaganjanell Rodriguez [facility] BODY FLUID CELL COUNT WITH DIFFERENTIAL 2019-09-16 12:19:00 Shireen Martinez [facility] BODY FLUID CULTURE + GRAM STAIN 2019-09-16 12:19:00 Shanice Evans [facility] CYTOLOGY 2019-09-16 12:18:00 Shireen Evans [facility] XR CHEST 1 VIEW PORTABLE/BEDSIDE 2019-09-16 11:58:00 Leonidas Evans [facility] POCT-GLUCOSE METER 2019-09-16 07:35:00 Keyur Reaganjanell Rodriguez [facility] PROTHROMBIN TIME/INR 2019-09-16 03:00:00 Shireen Evans [facility] BASIC METABOLIC PANEL (7) 2019-09-16 03:00:00 Leila Goyal [facility] CBC W/PLT COUNT & AUTO DIFFERENTIAL 2019-09-16 03:00:00 Joanne Evans bryant [facility] POCT-GLUCOSE METER 2019-09-15 21:43:00 Abdifatah Reagan I [facility] POCT-GLUCOSE METER 2019-09-15 17:46:00 Rawls, Thalia Collins [facility] POCT-GLUCOSE METER 2019-09-15 12:29:00 Rawls, Thalia VLeela [facility] POCT-GLUCOSE METER 2019-09-15 09:26:00 Rawls, Thalia VLeela [facility] POCT-GLUCOSE METER 2019-09-14 21:50:00 Rawls, Thalia VLeela [facility] XR CHEST 1 VIEW PORTABLE/BEDSIDE 2019-09-14 18:51:00 Laura Goyal [facility] POCT-GLUCOSE METER 2019-09-14 17:59:00 Rawls, Thalia Collins [facility] POCT-GLUCOSE METER 2019-09-14 12:38:00 Rawls, Thalia Collins [facility] POCT-GLUCOSE METER 2019-09-14 08:11:00 Rawls, Thalia Collins [facility] HEPATIC FUNCTION PANEL 2019-09-14 04:17:00 [place]i [place] [facility] BASIC METABOLIC PANEL (7) 2019-09-14 04:17:00 Leila Goyal [facility] CBC W/PLT COUNT & AUTO DIFFERENTIAL 2019-09-14 04:17:00 Sepideh Pagan [facility] (CELLAVISION MANUAL DIFF) 2019-09-14 04:17:00 Sepideh Pagan CH, I [facility] POCT-GLUCOSE METER 2019-09-13 21:52:00 RawlsThalia V. [facility] POCT-GLUCOSE METER 2019-09-13 17:20:00 Rawls, Thalia V. [facility] POCT-GLUCOSE METER 2019-09-13 11:41:00 Rawls, Thalia Collins [facility] POCT-GLUCOSE METER 2019-09-13 07:49:00 Rawls, Thalia Collins [facility] HEPATIC FUNCTION PANEL 2019-09-13 04:09:00 [place]i [place] [facility] BASIC METABOLIC PANEL (7) 2019-09-13 04:09:00 Leila Goyal [facility] CBC W/PLT COUNT & AUTO DIFFERENTIAL 2019-09-13 04:09:00 Ej [facility] (CELLAVISION MANUAL DIFF) 2019-09-13 04:09:00 Ej [facility] POCT-GLUCOSE METER 2019-09-12 22:08:00 RawlsJosefn VLeela [facility] POCT-GLUCOSE METER 2019-09-12 17:20:00 Thalia Rawls VLeela [facility] POCT-GLUCOSE METER 2019-09-12 12:49:00 Thalia Rawls V. [facility] POCT-GLUCOSE METER 2019-09-12 08:06:00 RawlsBereketThalia V. [facility] BASIC METABOLIC PANEL (7) 2019-09-12 04:49:00 [place]i [place] [facility] MAGNESIUM 2019-09-12 04:49:00 [place] [facility] PHOSPHORUS 2019-09-12 04:49:00 [place] [facility] HEPATIC FUNCTION PANEL 2019-09-12 04:49:00 [place] [facility] CBC W/PLT COUNT & AUTO DIFFERENTIAL 2019-09-12 04:49:00 Ej [facility] (CELLAVISION MANUAL DIFF) 2019-09-12 04:49:00 Ej [facility] POCT-GLUCOSE METER 2019-09-12 00:54:00 RawlsThalia V. [facility] POCT-GLUCOSE METER 2019-09-11 17:36:00 RawlsBereketThalia VLeela [facility] POCT-GLUCOSE METER 2019-09-11 17:05:00 RawlsJosefn VLeela [facility] BASIC METABOLIC PANEL (7) 2019-09-11 15:35:00 [place]i [place] [facility] MAGNESIUM 2019-09-11 15:35:00 [place]i [place] [facility] PHOSPHORUS 2019-09-11 15:35:00 [place] [facility] POCT-GLUCOSE METER 2019-09-11 12:08:00 RawlsThalia V. [facility] POCT-GLUCOSE METER 2019-09-11 08:01:00 [facility], [facility] BASIC [facility]OL[facility]EL (7) 2019-09-11 03:32:00 [place]i [place] [facility] MAGNESIUM 2019-09-11 03:32:00 [place]i [place] [facility] PHOSPHORUS 2019-09-11 03:32:00 [place] [facility] HEPATIC FUNCTION PANEL 2019-09-11 03:32:00 [place] [facility] CBC W/PLT COUNT & AUTO DIFFERENTIAL 2019-09-11 03:32:00 Ej [facility] (CELLAVISION MANUAL DIFF) 2019-09-11 03:32:00 Sepideh Pagan [facility] POCT-GLUCOSE METER 2019-09-10 23:06:00 Shirlene Thaliasophia Collins [facility] POCT-GLUCOSE METER 2019-09-10 17:50:00 Shirlene [facility] BASIC METABOLIC PANEL (7) 2019-09-10 16:19:00 [place]i [place] [facility] MAGNESIUM 2019-09-10 16:19:00 [place]i [place] [facility] PHOSPHORUS 2019-09-10 16:19:00 [place] [facility] POCT-GLUCOSE METER 2019-09-10 14:35:00 Thalia Rawls V. [facility] POCT-GLUCOSE METER 2019-09-10 07:59:00 Thalia Rawls V. [facility] APTT 2019-09-10 04:30:[address] [facility] BASIC METABOLIC PANEL (7) 2019-09-10 04:30:00 [place] [facility] MAGNESIUM 2019-09-10 04:30:00 [place] [facility] PHOSPHORUS 2019-09-10 04:30:00 [place]i [place] [facility] HEPATIC FUNCTION PANEL 2019-09-10 04:30:00 [place]i [place] CBC W/PLT COUNT & AUTO DIFFERENTIAL 2019-09-10 04:30:00 Sepideh Pagan [facility] APTT 2019-09-09 23:11:00 Yuniel [facility] POCT-GLUCOSE METER 2019-09-09 21:31:00 Thalia Rawls V. [facility] APTT 2019-09-09 17:38:00 Yuinel [facility] POTASSIUM 2019-09-09 17:38:00 Arnaud Franks [facility] POCT-GLUCOSE METER 2019-09-09 16:26:00 Thalia Rawls V. [facility] BASIC METABOLIC PANEL (7) 2019-09-09 14:28:00 [place] [facility] MAGNESIUM 2019-09-09 14:28:00 [place]i [place] [facility] PHOSPHORUS 2019-09-09 14:28:00 [place]i [place] [facility] APTT 2019-09-09 11:16:00 Yuniel [facility] POCT-GLUCOSE METER 2019-09-09 11:14:00 Thalia Rawls V. [facility] POCT-GLUCOSE METER 2019-09-09 07:25:00 Thalia Rawls V. [facility] TROPONIN I 2019-09-09 05:11:00 Bert Jones [facility] DIGOXIN LEVEL 2019-09-09 05:11:00 Arnaud Franks [facility] BILIRUBIN, DIRECT 2019-09-09 05:11:00 Henri Ochoa [facility] COMPREHENSIVE METABOLIC PANEL 2019-09-09 03:08:00 Araceli Pagan [facility] MAGNESIUM 2019-09-09 03:08:00 Arnaud Franks [facility] PHOSPHORUS 2019-09-09 03:08:00 [facility] APTT 2019-09-09 03:08:00 Ej [facility] BLOOD GAS, ARTERIAL 2019-09-09 03:08:00 Arnaud Franks [facility] CBC W/PLT COUNT & AUTO DIFFERENTIAL 2019-09-09 03:08:00 Ej [facility] XR ABDOMEN / KUB 1 VIEW 2019-09-09 02:16:00 Arnaud Franks [facility] LACTIC ACID, VENOUS 2019-09-09 01:53:00 Arnaud Franks [facility] TROPONIN I 2019-09-08 23:17:00 Bert Jones [facility] POCT-GLUCOSE METER 2019-09-08 22:44:00 Thalia Rawls V. [facility] ECHOCARDIOGRAM REPORT - SCAN 2019-09-08 21:12:32 Thierry Carroll lt Scanning [facility] TROPONIN I 2019-09-08 17:53:00 Betr Jones [facility] POTASSIUM 2019-09-08 17:53:00 Bert Jones [facility] MAGNESIUM 2019-09-08 17:53:00 Bert Jones [facility] POCT-GLUCOSE METER 2019-09-08 16:59:00 Thalia Rawls V. [facility] BLOOD CULTURE 2019-09-08 16:48:00 Henri Ochoa [facility] BLOOD CULTURE 2019-09-08 16:45:00 [facility] C. DIFFICILE GDH TOXIN 2019-09-08 16:30:00 Ej [facility] HEPARIN ANTIBODY 2019-09-08 15:53:00 [facility] BAS[facility]OLIC PANEL (7) 2019-09-08 13:17:00 Bert Jones [facility] LACTIC ACID, ARTERIAL 2019-09-08 13:17:00 Ej [facility] TROPONIN I 2019-09-08 13:17:00 Bert Jones [facility] POCT-GLUCOSE METER 2019-09-08 11:45:00 Thalia Rawls V. [facility] ECG 12-LEAD 2019-09-08 10:45:08 Unknown, Hl7 [facility] TROPONIN I 2019-09-08 10:45:00 Bert Jones [facility] POCT-GLUCOSE METER 2019-09-08 08:47:00 Thalia Rawls V. [facility] LACTATE DEHYDROGENASE (LDH) 2019-09-08 08:35:00 Ej [facility] HAPTOGLOBIN 2019-09-08 08:35:00 Ej [facility] FIBRINOGEN 2019-09-08 08:35:[facility]/INR 2019-09-08 08:35:00 [facility] 2019-09-08 08:35:00 [facility] BASIC METABOLIC PANEL (7) 2019-09-08 08:35:00 Ej [facility] TROPONIN I 2019-09-08 08:35:00 Ej [facility] COMPREHENSIVE METABOLIC PANEL 2019-09-08 03:56:00 Ej Araceli islas [facility] MAGNESIUM 2019-09-08 03:56:00 Arnaud Franks [facility] PHOSPHORUS 2019-09-08 03:56:00 [facility] CBC W/PLT COUNT & AUTO DIFFERENTIAL 2019-09-08 03:56:00 Jamisonnoris [facility] (CELLAVISION MANUAL DIFF) 2019-09-08 03:56:00 Ej [facility] APTT 2019-09-08 02:09:00 Ej [facility] LACTIC ACID, VENOUS 2019-09-08 01:13:00 [facility] ECG 12-LEAD 2019-09-08 00:53:12 Tiny [facility] POCT-GLUCOSE METER 2019-09-07 21:11:00 Thalia Rawls V. [facility] US HEPATIC PORTAL VESSEL WITH DOPPLER 2019-09-07 21:00:00 Rodrgio wilcox [facility] APTT 2019-09-07 19:51:00 Ej [facility] BLOOD CULTURE 2019-09-07 16:25:[address] [facility] BLOOD GAS, ARTERIAL 2019-09-07 16:25:00 Sepideh Harley [facility] LACTIC ACID, ARTERIAL 2019-09-07 16:25:00 Sepideh Harley [facility] XR CHEST 1 VIEW PORTABLE/BEDSIDE 2019-09-07 15:27:00 Gregg Brice [facility] 2D ECHO W/ DOPPLER (CW/PW/COLOR) 2019-09-07 14:48:25 Renny Mckenna [facility] LACTIC ACID, VENOUS 2019-09-07 13:35:00 Arnaud Franks [facility] PLATELET COUNT 2019-09-07 13:35:00 [facility] 2019-09-07 13:35:00 [facility] POCT-GLUCOSE METER 2019-09-07 12:36:00 Thalia Rawls V. [facility] BLOOD CULTURE 2019-09-07 10:38:00 [facility] LACTIC ACID, VENOUS 2019-09-07 10:37:00 Arnaud Franks [facility] TROPONIN I 2019-09-07 10:37:00 Arnaud Franks [facility] COMPREHENSIVE METABOLIC PANEL 2019-09-07 10:37:00 Araecli Pagan [facility] CBC W/PLT COUNT & AUTO DIFFERENTIAL 2019-09-07 10:37:00 Ej [facility] (CELLAVISION MANUAL DIFF) 2019-09-07 10:37:00 Sepideh Pagan [facility] POCT-GLUCOSE METER 2019-09-07 09:00:00 Thalia Rawls V. [facility] ECG 12-LEAD 2019-09-07 05:41:22 Unknown, Hl7 [facility] POCT-GLUCOSE METER 2019-09-06 21:23:00 Thalia Rawls V. [facility] HEMOGLOBIN A1C 2019-09-06 20:17:00 jE [facility] APTT 2019-09-06 20:17:00 Ej [facility] B-TYPE NATRIURETIC FACTOR (BNP) 2019-09-06 20:17:00 Vlad Pagan [facility] TROPONIN I 2019-09-06 20:17:00 Arnaud Franks [facility] POCT-GLUCOSE METER 2019-09-06 17:44:00 Thalia Rawls [facility] LACTIC ACID, VENOUS 2019-09-06 16:09:00 [facility]ier [facility] TROPONIN I 2019-09-06 16:09:00 Shirlene [facility] IRON, TIBC, % SAT. (WITHOUT FERRITIN) 2019-09-06 16:08:00 [facility]ERR[facility]IN 2019-09-06 16:08:00 [facility] BASIC METABOLIC PANEL (7) 2019-09-06 16:08:00 [facility] TROPONIN I 2019-09-06 16:08:00 [facility] POCT-GLUCOSE METER 2019-09-06 13:35:00 Shirlene [facility] LACTIC ACID, VENOUS 2019-09-06 13:18:00 [place] Leela [facility] RETICULOCYTE COUNT 2019-09-06 13:18:00 [facility] ECG 12-LEAD 2019-09-06 12:46:06 [facility] SODI[facility], RANDOM URINE 2019-09-06 12:29:00 [facility] CREATININE, RANDOM URINE 2019-09-06 12:29:00 [facility] LACTIC ACID, VENOUS 2019-09-06 09:48:00 [place] [facility] PROCALCITONIN 2019-09-06 09:48:00 Reinier [facility] TROPONIN I 2019-09-06 09:48:00 [facility] CT ABDOMEN/PELVIS WITHOUT IV CONTRAST 2019-09-06 08:00:00 Julien Wright [facility] LACTIC ACID, VENOUS 2019-09-06 06:56:00 Julien Krishna [facility] BASIC METABOLIC PANEL (7) 2019-09-06 05:26:00 [facility] KETONE, BLOOD 2019-09-06 05:26:00 [facility] TROPONIN I 2019-09-06 05:26:00 Sepideh Pagan [facility] POCT-GLUCOSE METER 2019-09-06 05:04:00 [facility] BASIC METABOLIC PANEL (7) 2019-09-06 02:55:00 [facility] URINE CULTURE 2019-09-06 01:55:00 [facility] BLOOD CULTURE 2019-09-06 01:55:00 [facility] BLOOD CULTURE IDENTIFICATION PANEL 2019-09-06 01:55:00 [facility] PT/APTT 2019-09-06 01:55:00 [facility] URINALYSIS W/ MICROSCOPIC 2019-09-06 01:55:00 [facility] CBC W/PLT COUNT & AUTO DIFFERENTIAL 2019-09-06 01:55:00 [facility] BLOOD CULTURE 2019-09-06 01:27:00 [facility] AMMONIA 2019-09-06 01:26:00 [facility] KETONE, BLOOD 2019-09-06 01:26:00 [facility] ECG 12-LEAD 2019-09-06 01:20:48 Unknown, Hl7 [facility] CREATINE KINASE (CK) 2019-09-06 01:10:00 [facility] golden [facility] TROPONIN I 2019-09-06 01:10:00 [facility] HEPATIC FUNCTION PANEL 2019-09-06 01:10:00 [facility] LIPASE 2019-09-06 01:10:00 [facility] CRITICAL CARE 2019-09-06 00:47:47 [facility] ED ECG INTERPRETATION 2019-09-06 00:47:47 [facility] XR PELVIS 1 OR 2 VIEWS 2019-09-06 00:15:00 [facility] Julien [facility] XR CHEST 1 VIEW PORTABLE/BEDSIDE 2019-09-06 00:12:00 Enedina Krishna [facility] CT BRAIN WITHOUT IV CONTRAST 2019-09-05 23:32:00 [facility] Julien [facility] RHYTHM STRIP - SCAN 2019-08-21 13:23:56 Provider, Nelly De La Paz [facility] POCT-GLUCOSE METER 2019-08-19 10:09:00 Nu Novoamary [facility] CBC W/PLT COUNT & AUTO DIFFERENTIAL 2019-08-19 05:35:00 Jesus Vogel [facility] COMPREHENSIVE METABOLIC PANEL 2019-08-19 03:47:00 Librado Chanel [facility] HEPATIC FUNCTION PANEL 2019-08-19 03:47:00 Grzegorz Mcfadden [facility] POCT-GLUCOSE METER 2019-08-18 20:29:00 Som[facility] POCT-GLUCOSE METER 2019-08-18 16:35:00 Grzegorz Mcfadden [facility] REPORT OF PROCEDURE - ENDOSCOPY URL 2019-08-18 14:04:41 Teagan Walker [facility] [place] ERCP 2019-08-18 14:00:00 Teagan [facility] FINE NEEDLE ASPIRATE (FNA) REQUEST 2019-08-18 13:44:25 Carlitos Walker [facility] FINE NEEDLE ASPIRATION BY CLINICIAN 2019-08-18 13:44:00 Teagan Walker [facility] UPPER ENDOSCOPY,ULTRASOUND 2019-08-18 13:00:00 Teagan Walker [facility] ERCP,PAPILLOTOMY 2019-08-18 13:00:00 [facility] 2019-08-18 13:00:00 [facility]BILIARY STENT 2019-08-18 13:00:00 WalkerTeagan [facility] POCT-GLUCOSE METER 2019-08-18 11:33:00 Grzegorz Mcfadden [facility] POCT-GLUCOSE METER 2019-08-18 07:51:00 Grzegorz Mcfadden [facility] COMPREHENSIVE METABOLIC PANEL 2019-08-18 04:04:00 Librado Chanel [facility] CBC W/PLT COUNT & AUTO DIFFERENTIAL 2019-08-18 04:04:00 Rickey richards [facility] POCT-GLUCOSE METER 2019-08-17 20:44:00 Grzegorz Mcfadden [facility] POCT-GLUCOSE METER 2019-08-17 10:08:00 Grzegorz Mcfadden [facility] COMPREHENSIVE METABOLIC PANEL 2019-08-17 04:37:00 Librado Chanel [facility] CBC W/PLT COUNT & AUTO DIFFERENTIAL 2019-08-17 04:37:00 Rickey richards [facility] MR ABDOMEN WO CONTRAST MRCP 2019-08-17 02:13:00 [facility] COMPREHENSIVE METABOLIC PANEL 2019-08-16 22:00:00 Librado Chanel [facility] PT/APTT 2019-08-16 22:00:00 Solitario [facility] CBC W/PLT COUNT & AUTO DIFFERENTIAL 2019-08-16 22:00:00 Rickey richards [facility] POCT-GLUCOSE METER 2019-08-16 21:13:00 Grzegorz Mcfadden [facility] POCT-GLUCOSE METER 2019-08-16 18:37:00 Grzegorz McfaddenLeela [facility] Plan of Care Planned Activity Planned Date Details Comments Source Future Scheduled Test 2020-10-22 00:00:00 Urine screening fo r protein (procedure) [code = 701445945] [facility] Future Scheduled Test 2020-03-12 00:00:00 INFLUENZA VACCINE (#1) [code = INFLUENZA VACCINE (#1)] [facility] Future Scheduled Test 2020-03-06 00:00:00 Hemoglobin A1c nurys surement (procedure) [code = 31982921] [facility] Future Scheduled Test 2012-02-11 00:00:00 MEDICARE ANNUAL WE LLNESS (YEAR 2 or FIRST YEAR if no IPPE) [code = MEDICARE ANNUAL WELLNESS (YEAR 2 or FIRST YEAR if no IPPE)] [facility] Scheduled Test 1952 00:00:00 DIABETIC EYE EXAM [code = DIABETIC EYE EXAM] [facility] Future Scheduled Test 1952 00:00:00 Diabetic foot exam ination (regime/therapy) [code = 398594956] [facility] Encounters Start Date/Time End Date/Time Encounter Type Admission Type Attendi [facility] Care Department Encounter ID Source 2017-08-14 15:51:00 2017-08-14 18:22:[address] [facility] [id number] [facility] Results Test Description Test Time Test Comments [...] mg/dL 70-105 H Calcium (test code = 95662-4) 8.6 mg/dL 8.4-10.2 EGFR (test code = 52630-0) 44 mL/min/1.73 sq m ESTIMATED GFR IS NOT ACCURATE CREATININE CLEARANCE IN PREDICTING GLOMERULAR FILTRATION RATE. ESTIMATED GFR IS NOT APPLICABLE FOR DIALYSIS PATIENTS. FATIMAH (test code = FATIMAH) Registered Associate ID - LM Lab Interpretation (test code = 32628-1) [facility] [id number] 09:28:00* Test Item Value Reference Range Interpretation [...] GFR IS NOT APPLICABLE FOR DIALYSIS PATIENTS. Registered Associate ID - LMCBC with platelet count + automated [id number] 06:26:00* Test Item Value Reference Range Interpretation [...] K/CU MM L MPV (test code = 75173-5) 10.4 fL 9.4-12.3 nRBC (test code = [...] % 0-1 Lab Interpretation (test code = 46914-8) Abnormal [facility]-Glucose [id number] 06:26:00* Test Item Value Reference Range Interpretation Comments POC-Glucose Meter (test code = 1538) 256 mg/dL 70-110 H : TESTED AT [address], [address]: Registered Associate/Shared Services Representative ID = [id number] for Sepideh Villegas Lab Interpretation (test code = 75787-4) Abnormal [facility]-GLUCOSE [id number] 06:26:00* Test Item Value Reference Range Interpretation Comments POC-GLUCOSE METER (BEAKER) (test code = 1538) 256 mg/dL 70-110 H : TESTED AT [place] [id number] [facility], [address]: Registered Associate/Shared Services Representative ID = [id number] for Sepideh Villegas CBC W/PLT COUNT & AUTO [id number] 06:26:00* Test Item Value Reference Range Interpretation [...] code = 2801) 0 % 0-1 POCT-GLUCOSE [id number] 00:18:00* Test Item Value Reference Range Interpretation Comments POC-GLUCOSE METER (BEAKER) (test code = 1538) 354 mg/dL 70-110 H : TESTED AT [facility] [address] [facility] [facility], [address]: Registered Associate/Shared Services Representative ID = [id number] for Sepideh Villegas Creatinine, random [id number] 21:59:00* Test Item Value Reference Range Interpretation Comments Creatinine, Ur (test code = 2161-8) 78.9 mg/dL FATIMAH (test code = FATIMAH) Reference Range: No NormalsOperator ID - DB [facility] RANDOM [id number] 21:59:00* Test Item Value Reference Range Interpretation Comments CREATININE URINE (BEAKER) (test code = 375) 78.9 mg/dL Reference Range: No NormalsOperator ID - DBUrinalysis w/Microscopic + Reflex to [id number] 21:48:00* Test Item Value Reference Range Interpretation Comments Color, UA (test code = 5778-6) Yellow Clarity, UA (test code = 5767-9) Clear Specific [place], UA (test code = 5811-5) 1.015 1.001-1.035 pH, UA (test code = 5803-2) 6.0 5.0-8.0 Protein, UA (test code = 77527-5) Negative Negative Glucose, UA (test code = 365) 300 mg/dL Negative A Ketones, UA (test code = 2514-8) Negative Negative Bilirubin, UA (test code = 33072-6) Negative Negative Blood, UA (test code = 21554-3) Negative Negative Nitrite, UA (test code = 5802-4) Negative Negative Leukocytes, UA (test code = 5799-2) Negative Negative Urobilinogen, UA (test code = 41368-4) 2.0 mg/dL 0.2-1 H RBC, UA (test code = 41292-2) <1 /HPF WBC, UA (test code = 5821-4) 1 /HPF Mucus (test code = 8247-9) Rare Squam Epithel, UA (test code = 23797-1) <1 /HPF Specimen Source (test code = 2795) FATIMAH (test code = FATIMAH) Registered Associate ID - [auto]Registered Associate ID - tech Lab Interpretation (test code = 84397-1) [facility]normal [facility]/ REFLEX URINE [id number] 21:48:00* Test Item Value Reference Range Interpretation [...] < /HPF SOURCE(BEAKER) (test code = 2795) Registered Associate ID - [auto]Registered Associate ID - techOsmolality, [id number] 21:47:00* Test Item Value Reference Range Interpretation Comments Osmolality, Ur (test code = 2695-5) 576 40-1,400 mOsm/kg Lab Interpretation (test code = 80162-2) Normal [facility] Hospital[facility]MOL[facility]ITY, [id number] 21:47:00* Test Item Value Reference Range Interpretation Comments OSMOLALITY URINE (BEAKER) (test code = 614) 576 mOsm/kg 40-1,400 POCT-GLUCOSE [id number] 17:53:00* Test Item Value Reference Range Interpretation Comments POC-GLUCOSE METER (BEAKER) (test code = 1538) 248 mg/dL 70-110 H : TESTED AT [facility] [address], [address]: Registered Associate/Shared Services Representative ID = [id number] for CALEB SEVILLA ECG 12 [id number] 13:42:10Interface, External Ris In - 10/27/2019 1:42 PM CDTVentricular Rate 65 BPMAtrial Rate 65 BPMP-R Interval 172 msQRS Duration 130 msQ-T Interval 480 msQTC Calculation(Bazett) 499 msP [place] 56 degreesR [place] -65 degreesT [place] 102 degreesNormal sinus rhythm with sinus arrhythmiaLeft axis deviationLeft ventricular hypertrophy with QRS widening and repolarization abnormalityAbnormal ECGWhen compared with ECG of 03-OCT-2019 18:14,No significant change was foundConfirmed by MD Shannan Kingston ([id number]) on 10/27/2019 1:42:06 [facility] [id number] 13:41:00* Test Item Value Reference Range Interpretation Comments POC-GLUCOSE METER (BEAKER) (test code = 1538) 153 mg/dL 70-110 H : TESTED AT [facility] [address], [address]: Registered Associate/Shared Services Representative ID = [id number] for ALESSANDRO CHAPA POCT-GLUCOSE [id number] 08:33:00* Test Item Value Reference Range Interpretation Comments POC-GLUCOSE METER (BEAKER) (test code = 1538) 178 mg/dL 70-110 H : TESTED AT [place] [id number] [facility], [address]: Registered Associate/Shared Services Representative ID = [id number] for CALEB SEVILLA Troponin [id number] 04:26:00* Test Item Value Reference Range Interpretation Comments Troponin I (test code = 06963-7) 0.02 ng/mL 0-0.03 FATIMAH (test code = [...] failure, acidosis, acute neurological disease, and persistent tachyarrhythmia.Registered Associate ID - [place] Lab Interpretation (test code = 01086-9) Normal [facility] [id number] 04:26:00* Test Item Value Reference Range Interpretation [...] acidosis, acute neurological disease, and per sistent tachyarrhythmia.Registered Associate ID Sally FERRIS WPT/[id number] 04:18:00* Test Item Value Reference Range Interpretation Comments Protime (test code = 5902-2) 13.6 11.9- 14.2 seconds INR (test code = 6301-6) 1.1 <=5.9 PTT (test code = 13413-4) 32.6 22.5- 36.0 seconds FATIMAH (test code = FATIMAH) Effective 12/07/2018: PT Refe rence Range ChangeNew: 11.9- 14.2 Previous: 11.7-14.7 RECOMMENDED COUMADIN/WARFARIN INR THERAPY RANGESSTANDARD DOSE: 2.0-3.0 Includes: PROPHYLAXIS for venous thrombosis, sys temic embolization; TREATMENT for venous thrombosis and/or pulmonary embolus.HIGH RISK: Target INR is 2.5-3.5 for patients wiht mechanical heart valves. Lab Interpretation (test code = 24995-1) Normal [facility] HospitalPT/[id number] 04:18:00* Test Item Value Reference Range Interpretation [...] patie nts wiht mechanical heart valves.BASIC METABOLIC [id number] 04:18:00* Test Item Value Reference Range Interpretation [...] GFR IS NOT APPLICABLE FOR DIALYSIS PATIENTS. Registered Associate ID - BARRINGTON WHemoglobin and lieuiacsfc7661-91-65 04:04:00* Test Item Value Reference Range Interpretation Comments Hemoglobin (test code = 786-4) 12.2 11.2- 15.7 GM/DL Hematocrit (test code = 4544-3) 37.0 % 34.1-44.9 FATIMAH (test code = FATIMAH) Registered Associate ID - [id number] Lab Interpretation (test code = 24566-7) Normal [facility] HospitalHEMOGLOBIN AND [id number] 04:04:00* Test Item Value Reference Range Interpretation Comments HEMOGLOBIN (BEAKER) (test code = 410) 12.2 GM/DL 11.2-15.7 HEMATOCRIT (BEAKER) (test code = 411) 37.0 % 34.1-44.9 Registered Associate ID - [id number] AND [id number] 01:27:00* Test Item Value Reference Range Interpretation Comments HEMOGLOBIN (BEAKER) (test code = 410) 12.3 GM/DL 11.2-15.7 HEMATOCRIT (BEAKER) (test code = 411) 37.2 % 34.1-44.9 Registered Associate ID - [id number] [id number] 00:04:00* Test Item Value Reference Range Interpretation [...] acidosis, acute neurological disease, and per sistent tachyarrhythmia.Registered Associate ID - DBPOCT-GLUCOSE [id number] 23:46:00* Test Item Value Reference Range Interpretation Comments POC-GLUCOSE METER (BEAKER) (test code = 1538) 160 mg/dL 70-110 H : TESTED AT [facility] [address], [address]: Registered Associate/Shared Services Representative ID = [id number] for ELIZABETH WALKER Occult blood x 1, [id number] 20:02:00* Test Item Value Reference Range Interpretation Comments Occult blood (test code = 2335-8) Negative Negative Lab Interpretation (test code = 95822-9) [facility] HospitalOCC[facility]LOOD, [id number] 20:02:00* Test Item Value Reference Range Interpretation Comments FECAL OCCULT BLOOD (BEAKER) (test code = 618) Negative Negative TROPONIN [id number] 19:19:00* Test Item Value Reference Range Interpretation [...] acidosis, acute neurological disease, and per sistent tachyarrhythmia.Registered Associate ID - JOY MHepatic function [id number] 19:13:00* Test Item Value Reference Range Interpretation Comments Protein, Total (test code = 2885-2) 7.3 6.0- 8.3 gm/dL Specimen slightly hemolyzed Albumin (test code = 94854-7) 4.0 g/dL 3.5-5 Specimen slightly hemolyzed Total [...] slightly hemolyzed FATIMAH (test code = FATIMAH) Registered Associate ID - JOY Lab Interpretation (test code = 59520-0) Abnormal [facility] HospitalLipase2020-04-16 19:13:00* Test Item Value Reference Range Interpretation Comments Lipase (test code = 3040-3) 52 U/L 8-78 FATIMAH (test code = FATIMAH) Registered Associate ID - JOY Lab Interpretation (test code = 31833-0) Normal [facility] HospitalLIPASE2020-04-16 19:13:00* Test Item Value Reference Range Interpretation Comments LIPASE (BEAKER) (test code = 749) 52 U/L 8-78 Registered Associate ID - JOY MBASIC METABOLIC [id number] 19:13:00* Test Item Value Reference Range Interpretation [...] GFR IS NOT APPLICABLE FOR DIALYSIS PATIENTS. Registered Associate ID - JOY EPATIC FUNCTION [id number] 19:13:00* Test Item Value Reference Range Interpretation [...] 347) 16 U/L 6-55 Specimen slightly hemolyzed Registered Associate ID - JOY MRAD, ABDOMEN, 2 [id number] 19:12:00Reason for exam:-> gi bleedShould this be [...] Signed: Marita Kline Verified Date/Time: 10/26/2019 19:12:09 [facility]RAD, [facility]ST, 1 VIEW, NON [id number] 19:07:00Reason for exam:- >gi bleedShould this be [...] 10/26/2019 19:07:20 chest 1 view portable / [id number] 19:07:00Interface, External Ris In - 10/26/2019 7:09 [...] Signed: Marita Klineeport Verified Date/Time: 10/26/2019 19:07:20 [facility] HospitalPT/APTT 2019-10-26 18:55:00* Test Item Value Reference Range [...] mechanical heart valves.CBC W/PLT COUNT & AUTO [id number] 18:44:00* Test Item Value Reference Range Interpretation [...] code = 2801) 0 % 0-1 POCT-GLUCOSE [id number] 07:38:00* Test Item Value Reference Range Interpretation Comments POC-GLUCOSE METER (BEAKER) (test code = 1538) 137 mg/dL 70-110 H : TESTED AT [facility] [address], [address]: Registered Associate/Shared Services Representative ID = [id number] for AJAY STEIN POCT-GLUCOSE [id number] 20:22:00* Test Item Value Reference Range Interpretation Comments POC-GLUCOSE METER (BEAKER) (test code = 1538) 244 mg/dL 70-110 H : TESTED AT [facility] [address], [address]: Registered Associate/Shared Services Representative ID = [id number] for SCOTT MELCHOR POCT-GLUCOSE [id number] 16:37:00* Test Item Value Reference Range Interpretation Comments POC-GLUCOSE METER (BEAKER) (test code = 1538) 229 mg/dL 70-110 H : TESTED AT [address], [address]: Registered Associate/Shared Services Representative ID = [id number] for ERICA CHEUNG POCT-GLUCOSE [id number] 12:06:00* Test Item Value Reference Range Interpretation Comments POC-GLUCOSE METER (BEAKER) (test code = 1538) 267 mg/dL 70-110 H : TESTED AT [address], [address]: Registered Associate/Shared Services Representative ID = [id number] for EDWIN CHEUNGNDA POCT-GLUCOSE [id number] 07:11:00* Test Item Value Reference Range Interpretation Comments POC-GLUCOSE METER (BEAKER) (test code = 1538) 239 mg/dL 70-110 H : TESTED AT [address], [address]: Registered Associate/Shared Services Representative ID = [id number] for ERICA CHEUNG POCT-GLUCOSE [id number] 20:27:00* Test Item Value Reference Range Interpretation Comments POC-GLUCOSE METER (BEAKER) (test code = 1538) 200 mg/dL 70-110 H : TESTED AT [address], [address]: Registered Associate/Shared Services Representative ID = [id number] for SCOTT MELCHOR POCT-GLUCOSE [id number] 16:38:00* Test Item Value Reference Range Interpretation Comments POC-GLUCOSE METER (BEAKER) (test code = 1538) 200 mg/dL 70-110 H : TESTED AT [address], [address]: Registered Associate/Shared Services Representative ID = [id number] for QUEEN GARCIA POCT-GLUCOSE [id number] 12:30:00* Test Item Value Reference Range Interpretation Comments POC-GLUCOSE METER (BEAKER) (test code = 1538) 328 mg/dL 70-110 H : TESTED AT [address], [address]: Registered Associate/Shared Services Representative ID = [id number] for JOSE CASTRO POCT-GLUCOSE [id number] 07:09:00* Test Item Value Reference Range Interpretation Comments POC-GLUCOSE METER (BEAKER) (test code = 1538) 171 mg/dL 70-110 H : TESTED AT [address], [address]: Registered Associate/Shared Services Representative ID = [id number] for QUEEN GARCIA BASIC METABOLIC [id number] 05:07:00* Test Item Value Reference Range Interpretation [...] GFR IS NOT APPLICABLE FOR DIALYSIS PATIENTS. Registered Associate ID - PIAYA LCBC W/PLT COUNT & AUTO [id number] 04:17:00* Test Item Value Reference Range Interpretation [...] 2801) 0 % 0-1 CT, CHEST, WITHOUT [id number] 22:07:00Anesthesia:->NoneFINAL REPORT CT of the Chest dated [...] Verified Date/Time : 10/06/2019 22:07:58 Reading Location: [facility] B1 C013W Consult Reading Room chest without IV [id number] 22:07:00Interface, External Ris In - 10/06/2019 10:10 [...] Verified Date/Time: 10/06/2019 22:07:58 Readi ng Location: [facility] B1 C013W Consult Reading Room [facility]POCT[facility]SE [id number] 20:24:00* Test Item Value Reference Range Interpretation Comments POC-GLUCOSE METER (BEAKER) (test code = 1538) 239 mg/dL 70-110 H : TESTED AT [address], [address]: Registered Associate/Shared Services Representative ID = [id number] for SCOTT MELCHOR POCT-GLUCOSE [id number] 17:05:00* Test Item Value Reference Range Interpretation Comments POC-GLUCOSE METER (BEAKER) (test code = 1538) 230 mg/dL 70-110 H : TESTED AT [address], [address]: Registered Associate/Shared Services Representative ID = [id number] for QUEEN GARCIA POCT-GLUCOSE [id number] 12:28:00* Test Item Value Reference Range Interpretation Comments POC-GLUCOSE METER (BEAKER) (test code = 1538) 241 mg/dL 70-110 H : TESTED AT [address], [address]: Registered Associate/Shared Services Representative ID = [id number] for QUEEN GARCIA POCT-GLUCOSE [id number] 07:21:00* Test Item Value Reference Range Interpretation Comments POC-GLUCOSE METER (BEAKER) (test code = 1538) 177 mg/dL 70-110 H : TESTED AT [address], [address]: Registered Associate/Shared Services Representative ID = [id number] for QUEEN GARCIA BASIC METABOLIC [id number] 05:10:00* Test Item Value Reference Range Interpretation [...] GFR IS NOT APPLICABLE FOR DIALYSIS PATIENTS. Registered Associate ID - SINTIA LPOCT-GLUCOSE [id number] 21:30:00* Test Item Value Reference Range Interpretation Comments POC-GLUCOSE METER (BEAKER) (test code = 1538) 207 mg/dL 70-110 H : TESTED AT [place] [id number] [facility], [address]: Registered Associate/Shared Services Representative ID = [id number] for DEJON ROMO POCT-GLUCOSE [id number] 18:30:00* Test Item Value Reference Range Interpretation Comments POC-GLUCOSE METER (BEAKER) (test code = 1538) 156 mg/dL 70-110 H : TESTED AT [place] [id number] [facility], [address]: Registered Associate/Shared Services Representative ID = [id number] for QUARTMAN, AJAY POCT-GLUCOSE [id number] 18:20:00* Test Item Value Reference Range Interpretation Comments POC-GLUCOSE METER (BEAKER) (test code = 1538) 204 mg/dL 70-110 H : TESTED AT [place] [id number] [facility], [address]: Registered Associate/Shared Services Representative ID = [id number] for QUARTMAN, AJAY ANG, PERC TUNNELED INTRAPERITONEAL CATH, ALL [id number] 14:49:00Reason for exam:->SHORTNESS OF BREATH Reason for [...] the right pleural space over a 4 Polish Berenstein catheter and superstiff Glidewire contrast injection [...] Date/Juan R e: 10/05/2019 14:49:39 Reading Location: [facility] Diagnostic Imaging Reading Room - [facility] 1.310.12 Electronically signed by: ELICIA YEE M.D. on 020 02:49 PM ANG INTRAPERITONEAL PERMANENT [id number] 14:49:00Interface, External Ris In - 10/05/2019 2:51 [...] the right pleural space over a 4 Polish Berenstein catheter and sup erstiff Glidewire contrast [...] complications [facility] FINDINGS: Initial fluoroscopic visualization [...] Verified Date/Time: 10/05/2019 14:49:39 Read ing Location: [facility] Diagnostic Imaging Reading Room - [facility] 1.310.12 [facility] signed by: ELICIA YEE M.D. on 10/05/2019 02:49 PM [facility]PO[facility] [id number] 10:03:00* Test Item Value Reference Range Interpretation Comments POC-GLUCOSE METER (BEAKER) (test code = 1538) 170 mg/dL 70-110 H : TESTED AT [facility] [address], [address]: Registered Associate/Shared Services Representative ID = [id number] for AJAY STEIN Prothrombin time/[id number] 05:59:00* Test Item Value Reference Range Interpretation [...] heart valves. Lab Interpretation (test code = 24966-6) Normal [facility] HospitalPROTHROMBIN TIME/[id number] 05:59:00* Test Item Value Reference Range Interpretation [...] patie nts wiht mechanical heart valves.BASIC METABOLIC [id number] 05:55:00* Test Item Value Reference Range Interpretation [...] GFR IS NOT APPLICABLE FOR DIALYSIS PATIENTS. Registered Associate ID - JOY MCBC W/PLT COUNT & AUTO [id number] 05:37:00* Test Item Value Reference Range Interpretation [...] code = 2801) 0 % 0-1 POCT-GLUCOSE [id number] 21:00:00* Test Item Value Reference Range Interpretation Comments POC-GLUCOSE METER (BEAKER) (test code = 1538) 271 mg/dL 70-110 H : TESTED AT [address], [address]: Registered Associate/Shared Services Representative ID = [id number] for GE, GABI ANG, DRAINAGE, WITH CATHETER [id number] 17:43:00Reason for Exam:-> pleural effusionFINAL REPORT History: [...] port Verified Date/Time: 10/04/2019 17:43:09 Reading Location: [facility] 05 :43 PM IR Tunneled Drainage Catheter [id number] 17:43:00Interface, External Ris In - 10/04/2019 5:45 [...] Yee MDReport Verified Date/Time: 17:43:09 Reading Location: [facility] Radiology Reading Room [facility] signed by: ELICIA YEE M.D. on 10/04/2019 05:43 PM [facility] HospitalPO[facility] [id number] 16:22:00* Test Item Value Reference Range Interpretation Comments POC-GLUCOSE METER (BEAKER) (test code = 1538) 295 mg/dL 70-110 H : TESTED AT [facility] [address], [address]: Registered Associate/Shared Services Representative ID = [id number] for AJAY STEIN POCT-GLUCOSE [id number] 09:30:00* Test Item Value Reference Range Interpretation Comments POC-GLUCOSE METER (BEAKER) (test code = 1538) 180 mg/dL 70-110 H : TESTED AT [facility] [address], [address]: Registered Associate/Shared Services Representative ID = [id number] for MARILEE BRITO TROPONIN [id number] 04:38:00* Test Item Value Reference Range Interpretation [...] acidosis, acute neurological disease, and per sistent tachyarrhythmia.Registered Associate ID - JOY MBASIC METABOLIC [id number] 04:30:00* Test Item Value Reference Range Interpretation [...] GFR IS NOT APPLICABLE FOR DIALYSIS PATIENTS. Registered Associate ID - JOY MCBC W/PLT COUNT & AUTO [id number] 04:12:00* Test Item Value Reference Range Interpretation [...] code = 2801) 0 % 0-1 POCT-GLUCOSE [id number] 00:22:00* Test Item Value Reference Range Interpretation Comments POC-GLUCOSE METER (BEAKER) (test code = 1538) 237 mg/dL 70-110 H : TESTED AT [address], [address]: Registered Associate/Shared Services Representative ID = [id number] for THOR MCDERMOTT PT/[id number] 20:55:00* Test Item Value Reference Range Interpretation [...] mechanical heart valves.CBC W/PLT COUNT & AUTO [id number] 20:10:00* Test Item Value Reference Range Interpretation [...] code = 2801) 0 % 0-1 TROPONIN [id number] 20:08:00* Test Item Value Reference Range Interpretation [...] acidosis, acute neurological disease, and per sistent tachyarrhythmia.Registered Associate ID - BSLactic acid, [id number] 19:57:00* Test Item Value Reference Range Interpretation Comments Lactate, Venous (test code = 2872) 1.54 mmol/L 0.5-2.2 Specimen moderately hemolyzed FATIMAH (test code = FATIMAH) Registered Associate ID - BS Lab Interpretation (test code = 23703-2) Normal [facility] HospitalLACTIC ACID, [id number] 19:57:00* Test Item Value Reference Range Interpretation Comments LACTATE BLOOD VENOUS (2) (BEAKER) (test code = 2872) 1.54 mmol/L 0 .50-2.20 Specimen moderately hemolyzed Registered Associate ID - BSB-type Natriuretic Factor (BNP)2019-10-03 19:35:00* Test Item Value Reference Range Interpretation Comments BNP (test code = 27287-0) 209 pg/mL 0-100 H FATIMAH (test code = FATIMAH) Registered Associate ID - BS Lab Interpretation (test code = 10292-1) Abnormal [facility] HospitalB-TYPE NATRIURETIC FACTOR (BNP)2019-10-03 19:35:00 * Test Item Value Reference Range Interpretation Comments B-TYPE NATRIURETIC PEPTIDE (AKER) (test code = 700) 209 pg/mL 0-100 H Registered Associate ID - BSTROPONIN [id number] 19:35:00* Test Item Value Reference Range Interpretation [...] acidosis, acute neurological disease, and per sistent tachyarrhythmia.Registered Associate ID - SHFywagnfmw0674-72-05 19:27:00* Test Item Value Reference Range Interpretation Comments Magnesium (test code = 67940-7) 1.6 mg/dL 1.6-2.6 Specimen moderately hemolyzed FAITMAH (test code = FATIMAH) Registered Associate ID - BS Lab Interpretation (test code = 48517-7) [facility]2020-[facility] 19:27:00* Test Item Value Reference Range Interpretation Comments MAGNESIUM (BEAKER) (test code = 627) 1.6 mg/dL 1.6-2.6 Specimen moderately hemolyzed Registered Associate ID - BSBASIC METABOLIC [id number] 19:27:00* Test Item Value Reference Range Interpretation [...] GFR IS NOT APPLICABLE FOR DIALYSIS PATIENTS. Registered Associate ID - BSRAD, CHEST, 1 VIEW, NON [id number] 19:24:00Reason for exam:- >SHORTNESS OF BREATHFINAL REPORT [...] Gabino Martinez MDReport Verified Date/Time: 10/03/2019 19:24:24 [id number] 10:45:00* Test Item Value Reference Range Interpretation Comments PTT (test code = 62082-2) 31.2 22.5- 36.0 seconds Lab Interpretation (test code = 62877-2) [facility]2020-[facility] 10:45:00* Test Item Value Reference Range Interpretation Comments PARTIAL THROMBOPLASTIN TIME (BEAKER) (test code = 760) 31.2 seconds 22.5-36.0 PROTHROMBIN TIME/[id number] 10:44:00* Test Item Value Reference Range Interpretation [...] mechanical heart valves.CBC W/PLT COUNT & AUTO [id number] 10:30:00* Test Item Value Reference Range Interpretation [...] 0 % 0-1 Fine Needle Aspirate by Gvqvxqgrt5733-87-61 10:45:00* Test Item Value Reference Range Interpretation Comments Case Report (test code = 104) Medical Cytology Report Case: [id number] Authorizing Provider: Teagan Walker MD Collected: 08/18/2019 1344 Ordering Location: [address] Received: 08/21/2019 0949 Service Pathologist: Joya Keating MD Specimen: Pancreas, Head ADDENDUM (test code = 3381) d5ncyXHpGBXswWApMiKjZERoYHFqr7gqJRXfbMYbAvCiBvFoLwCoWdtisOZpBQIiJiNuv9cbx215yQDa y8yaTSMeYoG9aLBmAVIfwYQtY715XAIaHMedp8glw9MtKBHtqENyb3F2TRGSjdqkoSj2oEszW65it2K0 HoilY7naOMXeLEZgS0KmLR8nEPVfXux6OKT9ULQ7TH KrLUTwG1NxXA8gDXUkdIGdIBm2q0jqwBxaONDdQBE4j4heOIjfodLpIV3rhz1bkCl3b0vhnmCxQGDuAG GbrRJENYGhL8RtlLcoGn8gvMx6mSkvBdrqXFS2Nxx2NJ6wua40tri4aOqiUBHktjchNoU0JFbkCXVwct ifNGa0BTbfWQOjjUI3GRWjaWNgW0NaSVNoYA5hagy7 JBU6UNwzPGOrYrK5DQSlnHPtTOSeaQeaMOmbs445BTN2BoTnXD6dT7Vfj7C2gL2iyHNwEMQgwANpSfLu WZShkm8xaKTzVVdyu1VpVBI7kkS1eWAfeXRpNKVrWP92Jzhut0ZeNgliZLY9OTEsnvUhb3Wql6ceEuGt kuUwH4lfP0BmGSPbAXEgFPJzRyRufxLpb8Cqi3AphD UkbWw4z6flVCRmXMSooMxbo3tpSWP0CYGgE8T1uBSbv0eyZOjnTPQgkWR6mzD0SBBvuZPwD3MrbB4eDG JfRC3pxhp8w5ykJBD9ABalNCKuMzT3oeP3JXLorZAkKRRxzAhfPYhzo166VAD6BnPiNRNmn9FgO6MnfW qtT60msJteC06xHFAtcOzwpG2siXivvO2ePqHgPrDe WAtowTqagJLkfehuOAnpvuIxILqgfeluYQCtYAliW5mnEhUjBEXioYhpCPpnl7LcBZUfWOTmZlJyQUZp WT0ivA5cBWTrRUp8nG6rMLvyqmB1lIV6NQmsxIpqU8r6c5zcW9aeOXVpyTVqUZSSGnQhBbX9JsmzOLPq cGFyXGxpMlxyaTFcbHRycGFyXHFsXHBsYWluXGYwXG ZzUtEctTlnfD5gLzDcZpRcMXihOA8gPHVuS1iooHWlHIEhDOZeS5ebDnNgxV7rlUmqEPiygrGxBTTPBg IEHLNFVFYYETOXLH8OF4QeQw4AGSQFVPPCWH5JW1yLLuMaN2aUU1DWIE1CJPAAIYEYYIjLFFHLB1GFMJ 1LFYIWXUdYKACMOAffoRSnECXbPP5zOK5LNACOTnEn Jh5BKU5DHInQRR3GFZliIZVdgid+IL0xRjMWUPGIJCIkZ07AK6nXRJEBFIYURQRZUSjVIyAVNZBENWIX FuPDLMNYAZJcH3ZMA5lPZ88ALWPUQGTORCPZAAJXMAysBEfWIRlffDOdGD4bpvz+ED7yxz6LSMZRWHlB NkqhEQhDYUFYKLBTF9YXCrUPDb1ZVT6iABMznxobGF FcNLAlgGStv37qrOXqFFFrQDcnx9w6aIYSmu5hTI9nM2drNUhezdOnvuYpAO8wY6X4xc42m3fyIhzmMJ J9 DIAGNOSIS (test code = 3220) b4uxwHVoXNKci5arRUJsbHAeQiLqZoOwKaWdHjytxVGtLAoabwNpHAqok4TbF4ZwFdGbYVdohsLxBMBi KezeckqqLCNeKJD6nqInGOVqDHkwRKWvWSyuJx6yhRTjaOkrWwJwLGEos8ctyuFVdjctlZw5w5erOCIm LrZ4jQAoWXnnG8mqqjZmbWGdJSHhLKy5aI97WCKlfD 8luUQhCRboloCxXlG9OCvlCZViIjW2DRVfkVLaTAYiU7ojMQXpOFelHNHyZLumoOTrALA4pImid0N8vC PpcEAutWupTtXpYpVmVBQNp2WbSLq6tCyoL4KpJZTbSqW6jYGvJDBnZVgcPFIjYICeflZ6vS94YIfvyn K5iYEzy1Rpr66ux858bT2vfVZmAZS0RQDiZBSmhCIh GKVwYYV9PNAtnDVaT6t4RoHidTMlZ0R6ArNxxQJyT7F6ZiSqqZBfW0L0FiMfyXMbLPNcpCThAq9tqLJd ePBmne2mda56OHF4k5LfwWmoBWN2LVV9DoXnVj1swKSuEYVvVX3gLbUoaTAbNLJezu28lJioDKeepsVo zL1nAyOeINQueLXzZIAgRZ7wiSYwTLLekM6wbaqpYH EkEhJhgpaoDJPzsHlgukKtFv1ctDbnFSX2WEshK6ijhW5hHsN0UOdlR8jlrI6rCNw6ZMgkxOG3MRBuzU 3bYL4nztgwa0wgRiUqOT0nkkuxv1nqCnUsEO7euwj0a5fxYvMcWE0qstjlj5pxWzCtMEpkEFFjqgvdTS Dyj2QedkawVCMna5FjP0YuaJsuM07ljFdsQ23lJGHu aBwwaF8ghYmxtM9uXcZoHiPvBXpqoItutYImzcjtBGrlljQuHEytqrcyOHTbZImxJ5spJzWgBIDfyWqz JNotn4OiPMXeNDViKnVmIPISI1UDQKKpKQvHQLDePSOBUjPAMpEdRoefR3jYKdxVAMHBJFoSTLYLX3ED ToIqKR9UATZISKwpZwfGW2vzE9BwWQECMCXVIACkJt lyUUAyPLDfZDOWWLsZOFsqN7VHJUeDKG3OEhNVU3FfOX0ECJDWZjDhHILZQ2BWZEGHNeVXAZMEJV7ZZL EzTBaBNqcZEZUJU8ECZHRSBRVFPHluLZDvRFEwDEAENzPTMUnUMAJHUROMWZBkKUGPJa0LYYQJGE4DQR WtVHthPBAwKZElLBWJWUSgS29QFJNZFKeiEIY7m7jg nBPsCAHneIVkIRIrEFvosgXxMWRhOvghanioEYIkBQA9pbQgLIIzIGnkBOMxOItlHd9puDFqfTxwSuIb TEQhb0zhzlMWhpedoKj5v7hoBPGqZdK2jXRsZCxkC7mfkmKqvGHvXFAaIXb2mQ32OJCapH6pfFDcRBqe awXsCjS5XJpwPREeSpC5DTZkrXMdYZVoO4tmHKMkXR deRWOiCIvtwIIhWXO7tGdnm5P0xZRpjYHwtEcrXaWsSwSpGpSOc9XjCLu7eDsrP6AvEWDzMbI3kLCgFD ZuVHaeVJFqMJRupcZ9lA87NSykusL6wIZeo3Gos47jk302yE3doZArJYA2DHRyVPXflIQwZNAlSHT5WR SlxXZcA6ndTGDjQD4mxosnFQhaYMbuENQsxQV9GXZk yJMvG5OnQGIhUMibXKDrath3FlPfRe9ttMNxiImzRCkar7uss4dtkETnBlx1FGWpXgDmBjzaBOhro9Mt z6cfFSZywa7sJKH8cLCrtQuxn5D5pBVzMBQxjHMmVDLrYN1nnASsXUQtoW4pfevpYWDzZmCbinjtJMIo dBgbdoGwPq6ixFfuCPG3HMzxD4fwpM7qWzB6PItuD2 dmmH7dBUd4WCgzPKEanCY9pvX0KCWnzVVpF4QnnW4hSJEcEU1ocme2z4nlDJS3BYmyCCXrVhP1yfS9XJ TkpWFlKKNxbUuuYLetz524YNA0WhZrIELmn9PgW3DzoOcbB58ctUpcR89iQDUrzDcymN4pxAwhzS6eJa GlAkYxPMllzZaiHY8wYGUkV1uuiLFaNDRpKLVaR4cn TaWrnO9poEklDVikguMfDCBcRpz0EOElpZFtAKShZdi9ATKmGTQfQ06jpktoKOW7lS1nr1hlk3VwLTyy YEO5LSGxj47qIGdrmhU3RDppJv2yHyUjYZQ3BDxkIHT6vE== COMMENT (test code = 3359) [file] wfcaZvKSYfMDYjBJ7wpLPaCBBeJCronV5jXYGlQDWmjan4xQDbWMCcZTS7lvFjUwmjEKD6 CPT Code(s) (test code = 3357) s2jzvIVcPNButJUlJuGvPFFoBSQev3aeREVdnYNiPuVjBiYlTxYoIjjkwBKaOQOoDbApk9flp478jYZo q1ugYIAuMsC5fQJfSLSvnWGiN617u9ich1qqumNqrWA7NMFpJOD4DHxpsqNgbpU4PTdrgWYbFfH5DFzu wyIrPNvsczRxcdZuYeo2WFCkX106PJX2wHfmv6ubIY O0DXTqGRQrCaRaTw3ovETtK995UPHuPJPQFWStvUs6TBMwnvOgkhQifILMe270Z238f8ydQDXnlmAypA oCkjguo0rrG461VQVrrLGzcqCyVwJxYWXgoNBwhLA6UJOeDA3oehkuGgGvGK0lwfjbPtDpIB4retw8Kw LuFB5ixwufSnXkUXvwUXEjgkbcLZNqo4VkhdnvKR7i G5Exz4L1iE6jgTNoBAYhpZLiAqZdZAPrso6pwNAyBPows4FeKCD1jaU9qNOycENoCTOoLW69Mrosm5Wf MkixAML0XOGeqkSkj5Iuq6sfZoCguqSzN3pyK2FpCCHlLBHeCQCnVdTucfRcy9Udo0RdvPDfdKd7t0oo IMWfWMJdhRtwt8uwGUY4TTYfJ9B8nWFlr6qnMPsmKV PwoWP5blneCYorUULvydY0pzwsNKgrMAEuiUI8feeiPFkrOGAfYoI8yxauBMkiROSsBAH6ZAggy075FC B2GTneTqbfVSeeLKGpboHqabFyjHvaYIUpRIYuFPnhVEEiTKnfGJDzIJPuBbWafRszbOgmiJ9hIxLlBf PaYXwdLH2dMKUqT7jcbAFxPGJsKCDlQ8jeByXxiL3fiNhdOUyldkKqIAx3KGjwDEH7GECdQDixECJ2 CLINICAL DATA (test code = 3355) u2lzdCZhDEWrzNBaEmYkSSVwPLJnh6myVSSddNRwCqUwKfMuChRcGgpqgEYgNNJlCwZog4xwf094wRVn g3cdICGeIqD4rHWfYOAfzZViU563NOEnMYecc8eyw6JwRFZwgRNwj1T3RCMNqikpvZu6zYoiM45ic0R2 JhmfQ7wyJUSoPANiC4LiHE7bOFGhMle3QWQ0CRY9KO NvIBXxV5GcHP0mCUQbdGArHQm2r7xxlBzlJHLsSPM5y8tzKUvdwcAoHE5fqz6fwGb0s3bmxpVlSKSsVK RcuMKXCGGaK0TcsShvPc5ivXf2qNjuKkgfZPG7Aca2RH6fgj35npc6pLimPRKemrijIgN8CJmbUEGzmi wnMSi5TChoJNMzaDsoIPliNOXzgeykBPhaVFAzjYti GRpoSVNjGmzgZFajJOLjIOE5XZxvx018LZX0HOyml3kga7wliXAoMkf7TSPyVcIaMmloXGsjy0Hri9re JHLwmw0vTID0bEWpzVdei6H5kFZtSBZyzFYhoxCmKYHrFtF9CSuuUO1ged93UXTkRHQ3gn4zpMAvtZbb neVwkUPvSFtaN7JvEXBsn031DSEeV1CrEOJsi1E7sx GkWnJmJOFfaQL2xgH3MCYaUBp3bEDjamI5trOesRSnG0bdeU97KuPwrQPnA7ZneH79OuGmoZXdL4LxjZ 95BoWocTKjS1RmoF99RsUhpHQmUYHoyRCdCi9emGGtfHEmx9WcaNKgFBgrZ80ef169USBryqPxK5mezR FknlflxTJrgbdvZAdmbcV5DCEbQKTlKJvmZOGdOQDo EtDjkAQoFsFdKlMeyShrtVksSPctEaKrKEYhRLnkH4jyVrKnAdDtGPVbRf13NBkrGh12USEyCAQhwaFj C7PaKILxhQMzsrAqxdJ6dYAnmRIyU6TxCZXdKyDhIWAtVcJrr7PiiHm3OKLnTuduvWGieCZbsIScC0S0 hhM8GR6pfhbgtMffcfTdGB9rQZKyTFCgEPjbRYBquQ FqPBLgmCTbzuEpsskaaQCeEN1aYEomDfWmzPWbXTZrPnMfjAY5ibFjmxRuQXbaILRcXM1eLGYpyGlflb B2AWKprS0fuBY2ZMNfbCMtEm9tlQXdTYMhsj4= SPECIMEN SOURCE (test code = 3377) v7rzhGAkKRBdkDJyIxBuLLZdSNEpi1zhBVAccTDjQoLyMhElQeWvCdqkzIApWAYzXpDtw4jpx674tCAg t9paKGBpUrK8xUDuAITtpJWvJ047r1eei4uuiwKfjEG1YXNvGXE6HPbzjbEvibW8EEbojSIsEbC4COdq mtPvRYctzdIwxiXkOyt4XNKkF000EYF7oMtrm9fpJF W7ZBNuIZRnEtJcYb7mvNVpF313KIBpOCPSBDSnzLp4OSKbtnAkawDayQIRm652U268c5lkUPFstpDjuB eKgnutg8erJ712VGFkrRTmshJyYaQhBLRziWGhiZH4ZAIaOG6auheqFuEeOU2jntkuLeJgIO9ersx1Gm VwSY7ixupgZjOrINdiVDRqykzwJPXil9GhseqfYN8n I4Ssa4Q7cX1wiIRtGFByjYEcXbKwNJKwvv1cdWNbMFxqs6OrQIP5olT8qXCyxIBzNDMnRX71Ggnwf8Fw PpbuUZO0INRnjeFhq6Uzr5ngBwShroGvZ8lgO7GmIKPeSKUuYLAbXiZvllQli2Weq3SkwGKirFv5h3wh QPSqMRIxcVcvq5nlNSB3RUGvA5L4vUQyg9fwQCxgWR JsqOQ3xdboDDnqJZPdhoW9pnawUYekPQLqcXC5wgaiZFoxKEOuOzQ6jxhhFIqjUXErJZK0KWwls535OJ R3VBtcWgksYFixKUWeydHvnjBzwEymIDNdEVGeNHyfYEJhQWmrNQTfSKMrDmUhhFbykLqjjY9eGxSbTl JtAWvhPX8wXAGvS2lzjRIyLEKmDLIeI5woKyRuzO2s sKueXOrjnqUvNPGJGnPLBILMAQGUVHKZEA4RV6CpLd8GCEVmbq6= GROSS DESCRIPTION (test code = 3366) g3ecjYFnSUQpjACkNvVeCCEzLJPfc3jaYCWzwJRiTnQlVdOaYpYhBrqwsAZxCAVrCoPli7lpx907mOFe s1fzGMYiIkI4gWYbJXHjoKVxG433TEAeGCpft6ubi3KqPISzkUUgc6D5OKUHifrkxJb1aKjyK53uf0Z1 FdruK7aySOThVBKrW3QmYD5xEBYjFzs8OJM9OGF8QE SbWGYmJ0UjJZ6yKMPgwJZuJVb1x5axdCocESEfGCA8j8moRVbiugNlZJ0zmc8teAd2p3cfzzOfWUTmZU ZzuQGWEAJqK8CadLzsXa8hpZi9vKurAkoeCUD5Kfy3GV4hyf00lvh0jZpgEMVdpdzgXeZ0CCtjKEJinb thEXm0SYnhWTKfyOzhGYhgSWXvawufXCntBXSzbJjt YRdqMUHfUqnxTXaiFHYrOML0SJesi014QGK8DVegs0nqy7ulnAUpPde6WTLjAqFxGhqzFUblt7Ign2gz AOFgys3kOVM6eFMdpOuwv0P0fOKbCFRqvKFtvzEuUHIxHvC5VZjxEL4rtb27TVFgIYF1dy3awBHvbApf isOpnCNqYWhtU0KvXRVpw819WIQgX9ZmOOYyw5H5kw McNpSoHOUgdTZ3drV3GNOdDKr8cVBelkB8ziJqvBDvB6ialB11ZnKlqWWvU0UgyZ51WvEdlPVoN9UtvT 21NvIcaVNvC9QtzO21KjDirLLnNDQvpRFmKo5lwBOsqQHnv8HclEAuFWylY86sa034SSKtlbQgO8hhfN OcwcypxNLjzsgwEZsqccI3TXAyPLAzMOfbVXFtUESo EsOliMGeUsMhLuIjqGjmwGhnGJfmThXnMMQbXVooH2yvFvBjQcDnHfPcOEKrlRMtxZ8gB8b8d0IaI2yn ddWsYiL9QAO1yD6niHycfcgzY5GvuUFdxE5uo1kvTVEcR57hwDLbwPTwKlSvCvL6HuOqpXHaRFAoA7Yw dmVkOiAwMjEwMjBccGFyfQ== MICROSCOPIC DESCRIPTION (test code = 3371) q0guaJGuDEUekBEmMnKtMIEtWROop1yvAPNxwGEjUsQlGsSgXoCkTnsqwEZcUGUoCuKsh9zmv482sELg v2fjCXPdExJ4aLFhBFApkUPlC475h4mkf0qqrhBcuBN7YHQcGLJ1OSlexkIhjqB3DHldgJEwBeG6PZri apXkXVczrfQajpWrOlw8BTAdJ558ZCQ8fFsef3hwLA V6VQEwUIFhUzUyCn4ymYAzG847HVKdBGJWFDGioLe3CCYydbSsmuRzvFOXp107G302b3fxFSCxryUrgN rUdkkqd5caO405TLRspBDgawLpZhTpWWVwuGXzuCF7NHJhVO6qpcscBoGsWR6hydesGnFtFO9rnwd6Ac RrOE6xllotBqTzRVwlUDLdnikzVYWsg1MneqkvVA8m R5Fzl3L4rR7gbVZjPEGveXIrHgZaEBHusg9xvOKbLTtgc9EtYQU7sfT2gNIwqNFdAQKwDS75Tojdm8Kp DqvxIOP0KKPtjqPvn4Qbc8snEpAunwZkP5cbF0AiDYYmBDJqWEYnCmKkjoIvs8Hty0PoqRNzwKq7a4eh LMIjZJKjpZzvb5nkIZB0QQMjU3U5dFApq8asRPifFF SxmWE6penoFLsxWFPxcfD0xdafSCvkBJJvfCS7fjbfOPonITPhGaP8jrlmGHluQUIuPZW1HTzmd876NJ P7INpzMjdyXDfsVZQinkLrwuIxtLjsUBRiOPRrAUcmTAXdDKacMYXzAHWrLvDdaZiqzSlbpX9qNjPmUf IfIEktDM4yPHGeV6gcpDLfTMSwWQRfR4xwEaGayH7abAafPYdqdiFlXOHzbwXpgm7fHK6lmZGurF== Gross assessment was performed at (test code = 2777) [facility], Department of Pathology, [address] [place], [place] [address] [address], Technical component was performed at (test code = 2778 ) [facility], Department of Pathology, [address] [place] [address], Professional component was performed at (test code = 2 779) [facility], Department of Pathology, [address] [place] [address], [facility] ASPIR[facility] BY BUHXDBPOD3860-50-55 10:45:00Medical Cytology Report Case: [id number] Authorizing Provider: Teagan Walker MD Collected: 08/18/2019 1344 Ordering Location: [address] Received: 08/21/2019 0949 Service Pathologist: Joya [...] SEE COMMENT Signing Pathologist Direct Phone Line: [phone] signed by Joya Keating MD on 08/22/2019 [...] and endosc opic/radiologic correlation is needed.Two other [facility] pathologists also favor a diagnosis of positive for malignancy this case (YUNIER, NS).Additional levels on th ree more slides in this case do not reveal more definitive features.93753, 67407 (2.9 x 3.7 cm) irregular mass in the pancreatic head; localized biliary strictur e; many thirds of the main bile duct and right and left hepatic ducts are dilate d. A sphincterotomy was performedPANCREAS, HEAD MASS FNA25 mls in cytorich red; 4 cytospins, cell blockCollected: [id number]: [id number].[facility], Department of Pathology, [address] [place] [address] 77 030, [facility], [facility], [address] [place] [address], [facility], [facility] of [facility], [address] [place] [address], Tel [phone] 10:43:00* Test Item Value Reference Range Interpretation Comments Case Report (test code = 104) Medical Cytology Report Case: [id number] Authorizing Provider: Shireen Evans MD Collected: 09/16/2019 1218 Ordering Location: [address] Received: 09/18/2019 1334 Service Pathologist: Joya Keating MD Specimen: Pleural, Right DIAGNOSIS (test code = 3220) b9krlAZjVDLed6giIRBteRHaPmGmWjHjMyWiMjtgcDDqMOviqeMhKMucv4IyV0QxSeZwNColknJsDHRa XulectniZAErPEU0pmPxCLFyETjuJOPnDKotTv6jmCDrhXqeUeZgEHPrw5jhcwKRnfpovTh7v3zxPBIg RrF9nIVbQHalJ4dvlbUmqYHwRWSiIOv9mA37BFItzB 4ybVSkCUqaasLkPzT7LDrnNIUkWdW9CQOgeKKyDPPaE8ieTJRiYVpmOXMlSGwevBYwNBY5aQcpc2Z8vQ ZssGQczXlrZyTfUtEdLTJAs1HrAJg6xLmpE0TjZNGiJrC1jFFhVHZtUUjzEQQwSJFqovB1xH65XLnbru S5tUBlm1Kjb89pd336hS8aiZWbETD6RUDlHCInjAZb RAZlGQD5WYHjbJIwR1w6KvJroWXeW0M2FfIqtZXcX7G4OeEefDBxI8N8ZsHosNGuCICejUXnMs9poVRp rFWpkk7guf23HMN7f6TgiZesRWN0FVE8QnSsZl0reAStSNDsYQ6uDuMijTBoMAPgdl95mJrqQAsuorHo lQ2aKgGnZYUxjYFaPIYoHD7heINeVLGhdD5kgfztIL VjGmAeqaxiOFOoiSeypsCsZu7vhOvqIFC5JMkuX8snjC9jYrY6TZzqC0basD9hUBq7CXlgaND7QVJbgS 1qYP3hsetlb7fzIpUrHT3xtgslk9vdHkMxKN2dknj4b8avEmAtCD6bskeuc1qpXkDqRNwwNCHbtdokNY Ipm0TvthmcPEFaw4KlJ1CthZvuI50okJyqZ60uYPWh aXyttX5xcTvrcV2eLsQePeZePXlwhYxnoQAhlawfCMsvzjPuALiklmxyZVWeHYgrT0qqSyIgKXAtlGkx GMuol7VsMENbNTCiApHyEsuCWQTaOHgIUCNQJRKASRNSCWDzF8iHR0VQEX6DGVDXUBQCLIfLTODZP7WJ KSolcIkdIOIgPLUkGEBMV0PXG3gZURNqXa4BGL4CRR yTTlKTH3rzyGAnURKbNR6jMpALANBHZAAlW50IH5jGMWJIWBMWJNQQU1YGL7xTX7FVYnUnC8LdACvKZa FPTLZGYS2LC6QcIALJH5HtWSxKR14HT1gUEG2AYIteWRNwDUVoRDGVOHSUA0QWMsEJYc5TKVYxN9GhHR tJIRHPXmVNZCQFJZbeA9OAIQEAIQ7EMyMvUHRbvmzt [file] cmzdvwDeRJPROlh1wgO1nojDQVlDVkV4LnCKphpaAoKSkkQMuxZRO9CAB4It97AmZ2TekqCQL3aC== COMMENT (test code = 3359) [file] xwYXJccGFyXHBhcn0= CPT Code(s) (test code = 3357) d9fceIYqMTKiqYPrOkJxGGBeIASsu6ekUONmjHAjTiTtSkXpOjDzUsjctWNhEQBfZtVoh3jvq577lRJn b3aeGYPjDhK9gGAgYWNisCYaY394EGMrXSpmh6ibb5ArKWNhqODon0D8KBLUlhaexVg6gZpzA22ma6P0 FyxpW9idFBAeDHOcN8ClBP0mUBAwXct2YCC7FHL1GE WsWYQvA7MxSX7nJJJgpZFeYDp2r7dkaCmdZLKuJVJ4z8cyINhyjyYqQH5qun9foPf7d4osbpUxCKNgZM AodFABBRJvA1NfgNhoWj7yiUs9zIpqIlkrBTA9Bsw3TO1myd74awa3gDilXYQlobxeJjH6JKkuLSTocv iiZLe4UIodBMKmcTrmPBdoQMJpvqkrXWjuLNIywTtk LCqlAMVcDwnzZKbhFWGnOXX9CYqfe714HFC8UYdin1kyx8wsjJPmNjo5TCWaFxDlYhcvFWbeu9Dbm9qb OXJdin2bIVX6oIIjgQdka6I5gQJtBIUydTFtbsLlUUKjWeH5AJwoLR1duh35MAEmHSL0ml5faLFmsFhh ucCydGJuDMssZ5LaCIJhx948BHZnP2FbQMZks3Y6sl YwXtJiWIAydSZ4paM1QYRiZIq6vXRxhkV7boXjvFOiV4sbhC02BqOdwGNlN1DabT51EjLluMUyK0VyeV 35YmBlqRUhV0BkxW66FtYsoJOcXASzxMIqVa6bqRKdbUEau3XywVRqMRuoI23st270PGAfulSwQ6itrZ SzfoileOXuyexfVEetuwT6FAYlHSHdPVgoPKMfVJNn UhMsbTWcIxBmIpGmnYeyiTmcUGksImFbMOJhSDxuR5vhKhRbFjEfPCC3JMAbLIzhCGmqSPUxzUQkcE== CLINICAL DATA (test code = 3355) y7ownUEpURGgsCRsCaPmKYNiTGClr0gkFSEbtUQiFdSeLuQdVvFgWpdikMBaTVHgTtHsx4kay639yNUc r5raFSZtEpI6hSVwNAVztIZjO165EKZhPJrte1rnw3OpGFNjlPZgh4B1IYKCtnplmLu1lFtjE79cm0R0 KzozS2deQHEoRQMxU3YtYZ5iKYYoTvp9ZIP9RBQ6JS QnGTHeL6InLV4fISQxsRKwXSl3b5bomHpxXJBoJOJ3y6ccKNcuywQmCN8elt9chSl1g7stxdWkHJVsZR EuuPRFYODcB8NzeJsbQo2prYt3xLurEicmZDW3Fyk6UV5xiv41imk0gXasIILlkwztFlY1DDkvEMIaai qfGUb0DMlnLHAmrVejGWywUXGbemjgZGohDCUfdXbn BCseQSMePguePKmlQUEfWZS7EQkna379CGJ3LKxly4eiz5wfdGDaNgq2SWWnEsGcEsbuSKprg5Oue3xk CZRybx7wUBL0fYVarFuhb1T2mFIqKHWiiNWubhTyVHCzPwQ4SXbmMA2jlm14GWJtIXU1qg4tgXZnoSit bkGjcQEoPFitB8JwFVJca584MWRjZ5QnJRSxe6N5ho SeSrDrBCLjdJR9adW4WCGlXGm5wQKhnqY6olGrbTAmF3tfwV21XuKcyFQjE7TbhR80OmIjbFMbE0OkzN 56UxGtiPGrU5YdvA35ZdNnvEWdKWTepHHmFa7pnKXtdMCoc3IyoOVyISviI75if093YIJfygPdF9rlqQ CmnzaycIFxybjsPJvrzeF5WSBaHLDzSSekQFUdRBBd TxNwcWKoPdVeBcVljIikvQxbLNnpOgMgKCApIKljC0emYtXrLhMtRGFVyMjwtGGvqOL2eoGvASSpIiNd oC0nDAInKQIocwZbFHujA76un4NaWGcaxZjdyKYzQ3XeHIJmEfNvWJ6cHHGqZXVvVWLYXuQmXAO7JBxh YXJ9 SPECIMEN SOURCE (test code = 3377) m1aulCGvLLClqLRlLiFuQACkHBJas7rrYKQxqGOcDwRuZhCvOlRiAihtrPWuDNSpWuJkc4rue855yVFf v4btWNAzFwR2mEGgAJJldCRgH070i2mbe3jdkoEedDY2INIjWMF3JOnwedVcobG8WUoouGTrLgC2MYta pzAfGYtixwOmcbFmJzj1YHZbH463DWQ3cGhbx2quRO V6FMWdDYIeBlKzQb6xzPJlH765VPQuZORQSSSglDn2OUTqckFimeLxnJXWf385A342x9ujRYJmiiJfpF yCcbjdg8pfB005VRIujECschAzFyWiWUHrtWHzlPL9KSMwJZ7khhxzZeApHE7kfkkzIuQwXF6jegi2Se EwKW7oxtgzXcXtUKrdQIExfmmlUVMnq1WdeeaiMK4z H0Wpx9X6rO6ucANqGNTxjTXaJaCmMKHkwf4bzKQjXYwzt4WwIIS8yeJ0kMQueBYoJUQcYR71Niwtl9Pk FedpBCO5KHJadgVxk3Mxo3xvQcXwmjTyW4qvK5VrBLPbIOMwFWYtSxYpdzRru9Kpz0DtwKKgnJn8r8rt EFFsIECsgVrza3wnEHW9GLEvR0L9eSEnf2ipRKajVR VagPN4ftzwGRuaBGGllcV6vlunDWqcXXYmmHP0yxneQAjiNPNkAwT0featDRjuFUDhXNL6NUmmg566QZ S0GUcjXjbvJHzgKBAuzvVfweKmoNnkIJIgQHEdDEbuZJLvGAzmWGHiMEIzRdFxbCezsUxzqZ8sSqIcWv MdHNviZY7kFVYlH4oazKLvWZDtBNNgN2cfUpXyaV1e lAprKRemjeDbCFPZE3iPZRZFVISHOOwuGuaJKMQnASGvbt5= GROSS DESCRIPTION (test code = 3366) s4fymFJvFZAjcOMaKeSgDEYaOBZgo9zuLSStjVUtBkTiHsAmYaAuOqobuAFxVVDgBhHfg6koc644dZFu o9jqBAJnEuU5gGBnVLVgvZVyL841QQLcJYfpz8cmt4RcMEGonAQoe0J4GDYJphvszLy8kZptM08lw4Y7 RdtnK4agGIQmLXGhD2GfXT0fQSBxWqt3TAV3YTM3UJ RxDVQxL0JgXF5pENUlpXDkKBs1p6ffvTylLASlBFJ7k5amTXaakyAiKW0abw0yqZd3m3knvnIlVTDdRT KinOECXDKgQ5RalMedUr1mpFi7oIqwFeswLMM4Oaw0DK0nlu38ysc6nFwvXVBtknsbGyL8UIohHITngl ngOFg2NWigDYFreLyqWGwqRDRouwsaODclEVXfdGii BByqJRSfTjakGSteSBGfAWQ7QQnmi099KJV8ZLvdv0oxh6fbwBEzBhw0OFKgShAoZifhVItov8Qsa3rc LGNohj4yMKK9sXMleBsyg7B7eJUwEFZdmXFffhKvQCOiAuN2EVdpNU6eph69NJSgAYR5iw5wbYAofSba czEwxTTqREtdY6GpFCUvi828QVAaQ0TpNIBqy0S5gv HwAzUaZAJelBP6qrC0EUQdHPr5xTXttuD1znIipRTlZ7jdzN06PjAirDCdL8FheB71WvGbtZYzR2AqgO 94RzEqpPDtJ6LvzG62JrRucTAcJIWvaFOvCn4ovCHujXPmv9SdsDHjVKipV19cy797SJBvquThZ8vbeR FkgxqcvFNhuuneQQdixvE3FYZyLFZqPQwgVKIlPVWj WcVysTNcFeTqUxYljSvasZikMZqsMvWuARJuBQkbN8prFzIwKgZoQnU6IDIjkMMqBU0zHPFvXhu2yBE6 DWOdH9d3l9UdoF2zULRjTZhvPLCua8QtUUTmccONf8zoUOT5XBN4TBSwWMvhRQkcVCSdChIdODg9HAH8 IDAzMDkyMFxwYXJ9 STATEMENT OF ADEQUACY (test code = 2757) Satisfactory SPECIAL STUDIES (test code = 3376) [file] Gross assessment was performed at (test code = 2777) [facility], Department of Pathology, [address] [place] [address], Technical component was performed at (test code = 2778 ) [facility], Department of Pathology, [address] [place] [address], Professional component was performed at (test code = 2 779) [facility], Department of Pathology, [address] [place] [address], [facility] 10:43:00Medical Cytology Report Case: [id number] Authorizing Provider: Shireen Evans MD Collected: 09/16/2019 1218 Ordering Location: [address]: 09/18/2019 2092 Service Pathologist: Joya Keating MD Specimen: Pleural, [...] definitive diagnosis. Signing Pathologist Direct Phone Line: [phone] signed by Joya Keating MD on 09/26/2019 [...] material. Suggest additional sa mples if clinically indicated.72434, 63486Kynsb pleural effusion, recent diagnos ed with pancreatic cancer (see C20-457)RIGHT PLEURAL FLUID 60 mls deonte fluid; 4 cytospins, cell blockCollected: [id number]: [id number] interpret ation of this case included the use of immunohistochemistry or special stains.Co ntrol Slides Examined: In-house known positive controls were evaluated along wi th the test tissue. These control slides run alongside of the patients sample s how appropriate staining. Internal positive and negative controls when available are evaluated Immunohistochemistry technical testing was performed at [facility], Pathology Laboratory where it was developed and [...] alified to perform high complexity clinical laboratory testing.[facility], Department of Pathology, [address] [place] [address], [place] [address] , [facility], Department of Path[facility], [address] [place] [address], [facility], Department of Pathology, [address] [place] [address], Tel Lactate Dehydrogenase (LD), Pleural [id number] 19:32:00* Test Item Value Reference Range Interpretation Comments Lactate Dehydrogenase (LD), Pleural Fluid (test code = 97581 -1) 99 U/L See Note: Reference Range:TRANSUDATE: <113EXUDATE: >113SAMPLE SLIGHTLY ICTERIC. FATIMAH (test code = FATIMAH) Performing Lab [facility] [address] [place] [address] Louie Ortiz MD, PhD, YANELY [facility] + gram [id number] 11:42:00 * Test Item Value Reference Range Interpretation Comments Result (test code = 6463-4) No growth Gram Stain Result (test code = 1123) No organisms seen [facility] + GRAM [id number] 11:42:00 * Test Item Value Reference Range Interpretation Comments CULTURE (BEAKER) (test code = 1095) No growth GRAM STAIN RESULT (BEAKER) (test code = 1123) <1+ White blood cells seen GRAM STAIN RESULT (BEAKER) (test code = 64372) No organisms seen Protein, Total, Pleural [id number] 12:11:00* Test Item Value Reference Range Interpretation Comments PROTEIN, TOTAL, PLEURAL FLUID (test code = 2882-9) 2.1 [facility] [id number] 13:18:00* Test Item Value Reference Range Interpretation Comments POC-GLUCOSE METER (BEAKER) (test code = 1538) 220 mg/dL 70-110 H : TESTED AT [address], [address]: Registered Associate/Shared Services Representative ID = [id number] for PB GREENWOOD POCT-GLUCOSE [id number] 09:11:00* Test Item Value Reference Range Interpretation Comments POC-GLUCOSE METER (BEAKER) (test code = 1538) 133 mg/dL 70-110 H : TESTED AT [facility] [address] [facility] [place], [address]: Registered Associate/Shared Services Representative ID = [id number] for PB GREENWOOD CBC W/PLT COUNT & AUTO [id number] 07:47:00* Test Item Value Reference Range Interpretation [...] = 2801) 1 % 0-1 Comprehensive metabolic [id number] 07:12:00* Test Item Value Reference Range Interpretation Comments Protein, Total (test code = 2885-2) 6.0 6.0- 8.3 gm/dL Albumin (test code = 30819-0) 2.9 g/dL 3.5-5 L Alkaline Phosphatase (test [...] mg/dL 70-105 H Calcium (test code = 26328-8) 8.3 mg/dL 8.4-10.2 L AST (test code = 1920-8) 68 U/L 5-34 H ALT (test code = 1742-6) 27 U/L 6-55 EGFR (test code = 77261-6) 69 mL/min/1.73 sq m ESTIMATED GFR IS NOT ACCURATE CREATININE CLEARANCE IN PREDICTING GLOMERULAR FILTRATION RATE. ESTIMATED GFR IS NOT APPLICABLE FOR DIALYSIS PATIENTS. FATIMAH (test code = FATIMAH) Registered Associate ID - PIAYA LSpecimen moderately icte joel Lab Interpretation (test code = 47402-7) [facility]normal [facility] [id number] 07:12:00* Test Item Value Reference Range Interpretation [...] GFR IS NOT APPLICABLE FOR DIALYSIS PATIENTS. Registered Associate ID - MARVINAYA Jocelyn roberts ictericPOCT-GLUCOSE [id number] 22:29:00* Test Item Value Reference Range Interpretation Comments POC-GLUCOSE METER (BEAKER) (test code = 1538) 179 mg/dL 70-110 H : TESTED AT [facility] [address] [facility], [address]: Registered Associate/Shared Services Representative ID = [id number] for Lorena Lopes POCT-GLUCOSE [id number] 18:26:00* Test Item Value Reference Range Interpretation Comments POC-GLUCOSE METER (BEAKER) (test code = 1538) 233 mg/dL 70-110 H : Notified RN/MD: TESTED AT [facility] [address] [facility] [place] [place], [address]: Registered Associate/Shared Services Representative ID = [id number] for PB GREENWOOD Body fluid cell count with [id number] 14:56:00* Test Item Value Reference Range Interpretation Comments Appearance (test code = 9335-1) Slightly Hazy Clear A Color (test code = 6824-7) Yellow Colorless, Straw A RBCs (test code = 24957-8) 109 <=1 /cu mm H Adjusted WBC Count (test code = 10645-1) 125 <=5 /cu mm H Lining Cells (test code = 21306-8) 1 <=1 /cu mm % Segs (test code = 90334-5) 1 % % Lymphs (test code = 65422-7) 84 % % Monos (test code = 69868-7) 14 % % Eos (test code = 99809-1) 1 % % Baso (test code = 76190-6) 0 % Container Body Fluid (test code = 2873) Sterile Vial Lab Interpretation (test code = 52666-6) Abnormal [facility] WITH [id number] 14:56:00* Test Item Value Reference Range Interpretation [...] (test code = 2873) Sterile Vial POCT-GLUCOSE [id number] 12:49:00* Test Item Value Reference Range Interpretation Comments POC-GLUCOSE METER (BEAKER) (test code = 1538) 163 mg/dL 70-110 H : TESTED AT [facility] [address] [facility], [address]: Registered Associate/Shared Services Representative ID = [id number] for PB GREENWOOD RAD, CHEST, 1 VIEW, NON [id number] 12:22:00Reason for exam:->s/p thoracentesisShould this be performed [...] Ibarra Verified Date/Time: 09/16/2019 12:22:09 Reading Location: [address] Neuro Reading Room Electronically signed by: GREYSON VALENTE on 2019 12:22 PM BLOOD [id number] 09:37:00* Test Item Value Reference Range Interpretation [...] was Viridans Streptococcus on 09/10/2019 at 0[address] HAND GRAM STAIN RESULT (BEAKER) (test code = 1123) From aer obic bottle only: gram positive cocci in chains GRAM STAIN RESULT (BEAKER) (test code = 20029) From an aerobic bottle only: gram positive cocci in clusters GRAM STAIN RESULT (BEAKER) (test code = 845660) From a naerobic bottle only: gram positive cocci in clusters BLOOD [id number] 09:36:00* Test Item Value Reference Range Interpretation [...] only: gram positive cocci in clusters POCT-GLUCOSE [id number] 08:56:00* Test Item Value Reference Range Interpretation Comments POC-GLUCOSE METER (BEAKER) (test code = 1538) 150 mg/dL 70-110 H : Notified RN/MD: TESTED AT [facility] [address] [facility], [address]: Registered Associate/Shared Services Representative ID = [id number] for PB GREEN[facility]OD BASIC METABOLIC [id number] 04:16:00* Test Item Value Reference Range Interpretation [...] GFR IS NOT APPLICABLE FOR DIALYSIS PATIENTS. Registered Associate ID - JOY MSpecimen slightly ictericPROTHROMBIN TIME/[id number] 04:11:00* Test Item Value Reference Range Interpretation [...] mechanical heart valves.CBC W/PLT COUNT & AUTO [id number] 04:03:00* Test Item Value Reference Range Interpretation [...] = 2801) 2 % 0-1 H POCT-GLUCOSE [id number] 21:54:00* Test Item Value Reference Range Interpretation Comments POC-GLUCOSE METER (BEAKER) (test code = 1538) 209 mg/dL 70-110 H : TESTED AT [address], [address]: Registered Associate/Shared Services Representative ID = [id number] for MYRONCHULA POCT-GLUCOSE [id number] 18:02:00* Test Item Value Reference Range Interpretation Comments POC-GLUCOSE METER (BEAKER) (test code = 1538) 179 mg/dL 70-110 H : Notified RN/MD: TESTED AT [address], [address]: Registered Associate/Shared Services Representative ID = [id number] for CELINA GREENWOODE POCT-GLUCOSE [id number] 12:49:00* Test Item Value Reference Range Interpretation Comments POC-GLUCOSE METER (BEAKER) (test code = 1538) 246 mg/dL 70-110 H : Notified RN/MD: TESTED AT [address], [address]: Registered Associate/Shared Services Representative ID = [id number] for PB GREENWOOD POCT-GLUCOSE [id number] 09:44:00* Test Item Value Reference Range Interpretation Comments POC-GLUCOSE METER (BEAKER) (test code = 1538) 151 mg/dL 70-110 H : Notified RN/MD: TESTED AT [address], [address]: Registered Associate/Shared Services Representative ID = [id number] for KRYSTYNA PB RAD, CHEST, 1 VIEW, NON [id number] 22:13:00Reason for exam:->SOBShould this be performed at [...] Lidya Kongeport Verified Date/Time: 09/14/2019 22:13:11 -GLUCOSE [id number] 22:01:00* Test Item Value Reference Range Interpretation Comments POC-GLUCOSE METER (BEAKER) (test code = 1538) 213 mg/dL 70-110 H : TESTED AT [address], [address]: Registered Associate/Shared Services Representative ID = [id number] for SIMA DIANE POCT-GLUCOSE [id number] 18:21:00* Test Item Value Reference Range Interpretation Comments POC-GLUCOSE METER (BEAKER) (test code = 1538) 221 mg/dL 70-110 H : TESTED AT [place] [id number] [facility], [address]: Registered Associate/Shared Services Representative ID = [id number] for ALVINA PERALTA POCT-GLUCOSE [id number] 12:50:00* Test Item Value Reference Range Interpretation Comments POC-GLUCOSE METER (BEAKER) (test code = 1538) 176 mg/dL 70-110 H : TESTED AT [address], [address]: Registered Associate/Shared Services Representative ID = [id number] for DEVIN PERALTAIAN Manual [id number] 09:15:00* Test Item Value Reference Range Interpretation [...] 3438) Decreased FATIMAH (test code = FATIMAH) Registered Associate ID - Virginia Baxter comments: Slide comm ents: Lab Interpretation (test code = 75057-5) Abnormal [facility] W/PLT COUNT & AUTO [id number] 09:15:00* Test Item Value Reference Range Interpretation [...] (CELLAVISION)(BEAKER) (test code = 3438) Dec reased Registered Associate ID - Virginia Sahil comments: Slide comments: POCT-GLUCOSE [id number] 08:29:00* Test Item Value Reference Range Interpretation Comments POC-GLUCOSE METER (BEAKER) (test code = 1538) 126 mg/dL 70-110 H : TESTED AT [facility] [address] [facility], [address]: Registered Associate/Shared Services Representative ID = [id number] for ALVINA PERALTA BASIC METABOLIC [id number] 05:52:00* Test Item Value Reference Range Interpretation [...] GFR IS NOT APPLICABLE FOR DIALYSIS PATIENTS. Registered Associate ID Sally Banks moderately ictericHEPATIC FUNCTION [id number] 05:52:00* Test Item Value Reference Range Interpretation [...] (test code = 347) 35 U/L 6-55 Registered Associate ID Sally Banks moderately ictericPOCT-GLUCOSE [id number] 22:03:00* Test Item Value Reference Range Interpretation Comments POC-GLUCOSE METER (BEAKER) (test code = 1538) 160 mg/dL 70-110 H : TESTED AT [facility] [address] [place] [address], [address]: Registered Associate/Shared Services Representative ID = [id number] for BHANU BRYANT Blood Culture - Routine (Right Venipuncture)2019-09-13 19:00:00* Test Item Value Reference Range Interpretation Comments Result (test code = 6463-4) No growth in 5 days [facility] [id number] 19:00:00* Test Item Value Reference Range Interpretation Comments CULTURE (BEAKER) (test code = 1095) No growth in 5 days BLOOD [id number] 19:00:00* Test Item Value Reference Range Interpretation Comments CULTURE (BEAKER) (test code = 1095) No growth in 5 days POCT-GLUCOSE [id number] 17:35:00* Test Item Value Reference Range Interpretation Comments POC-GLUCOSE METER (BEAKER) (test code = 1538) 173 mg/dL 70-110 H : TESTED AT [facility] [address] [facility], [address]: Registered Associate/Shared Services Representative ID = [id number] for ALVINA PERALTA POCT-GLUCOSE [id number] 11:54:00* Test Item Value Reference Range Interpretation Comments POC-GLUCOSE METER (BEAKER) (test code = 1538) 164 mg/dL 70-110 H : TESTED AT [facility] [address] [facility], [address]: Registered Associate/Shared Services Representative ID = [id number] for PERALTA ALVINA CBC W/PLT COUNT & AUTO [id number] 10:24:00* Test Item Value Reference Range Interpretation [...] (CELLAVISION)(BEAKER) (test code = 3438) Dec reased Registered Associate ID - Lorena OverholtUser comments: Slide comments: POCT-GLUCOSE METER 2019-09-13 08:10:00* Test Item Value Reference Range Interpretation Comments POC-GLUCOSE METER (BEAKER) (test code = 1538) 117 mg/dL 70-110 H : TESTED AT [address], [address]: Registered Associate/Shared Services Representative ID = [id number] for KATHRYN ALVINA BASIC METABOLIC [id number] 05:37:00* Test Item Value Reference Range Interpretation [...] GFR IS NOT APPLICABLE FOR DIALYSIS PATIENTS. Registered Associate ID - BARRINGTON Mahi moderately ictericHEPATIC FUNCTION [id number] 05:37:00* Test Item Value Reference Range Interpretation [...] (test code = 347) 35 U/L 6-55 Registered Associate ID - BARRINGTON Champagne moderately ictericPOCT-GLUCOSE [id number] 23:22:00* Test Item Value Reference Range Interpretation Comments [facility] (test code = 1538) 146 mg/dL 70-110 H : TESTED AT [address], [address]: Registered Associate/Shared Services Representative ID = [id number] for ELVA HOLM POCT-GLUCOSE [id number] 17:35:00* Test Item Value Reference Range Interpretation Comments POC-GLUCOSE METER ([facility]) (test code = 1538) 87 mg/dL 70-110 : TESTED AT [address], [address]: Registered Associate/Shared Services Representative ID = [id number] for PB GREENWOOD POCT-GLUCOSE [id number] 13:04:00* Test Item Value Reference Range Interpretation Comments POC-GLUCOSE METER ([facility]) (test code = 1538) 161 mg/dL 70-110 H : Notified RN/MD: TESTED AT [address], [address]: Registered Associate/Shared Services Representative ID = [id number] for PB GREENWOOD CBC W/PLT COUNT & AUTO [id number] 09:16:00* Test Item Value Reference Range Interpretation [...] (CELLAVISION)(BEAKER) (test code = 3438) Dec reased Registered Associate ID - [id number] ID - Audra Rose comments: Slide comments: POCT- GLUCOSE [id number] 08:19:00* Test Item Value Reference Range Interpretation Comments POC-GLUCOSE METER (BEAKER) (test code = 1538) 137 mg/dL 70-110 H : TESTED AT [facility] [address], [address]: Registered Associate/Shared Services Representative ID = [id number] for PB GREENWOOD Hugqctaqes7548-85-22 06:38:00* Test Item Value Reference Range Interpretation Comments Phosphorus (test code = 2777-1) 2.4 mg/dL 2.3-4.7 FATIMAH (test code = FATIMAH) Registered Associate ID - BARRINGTON W Lab Interpretation (test code = 77770-4) Normal [facility] HospitalIgmowyFCLWNUNKKF0519-14-92 06:38:00* Test Item Value Reference Range Interpretation Comments PHOSPHORUS (BEAKER) (test code = 604) 2.4 mg/dL 2.3-4.7 Registered Associate ID - BARRINGTON [id number] 06:38:00* Test Item Value Reference Range Interpretation Comments MAGNESIUM (BEAKER) (test code = 627) 2.2 mg/dL 1.6-2.6 Registered Associate ID - BARRINGTON WBASIC METABOLIC [id number] 06:38:00* Test Item Value Reference Range Interpretation [...] GFR IS NOT APPLICABLE FOR DIALYSIS PATIENTS. Registered Associate ID - BARRINGTON Champagne markedly ictericHEPATIC FUNCTION [id number] 06:38:00* Test Item Value Reference Range Interpretation [...] (test code = 347) 34 U/L 6-55 Registered Associate ID - BARRINGTON Champagne markedly ictericPOCT-GLUCOSE [id number] 01:10:00* Test Item Value Reference Range Interpretation Comments POC-GLUCOSE METER (BEAKER) (test code = 1538) 179 mg/dL 70-110 H : TESTED AT [facility] [address], [address]: Registered Associate/Shared Services Representative ID = [id number] for Amanda Gayle POCT-GLUCOSE [id number] 18:12:00* Test Item Value Reference Range Interpretation Comments POC-GLUCOSE METER (BEAKER) (test code = 1538) 133 mg/dL 70-110 H : TESTED AT [facility] [address], [address]: Registered Associate/Shared Services Representative ID = [id number] for PB GREENWOOD POCT-GLUCOSE [id number] 17:17:00* Test Item Value Reference Range Interpretation Comments POC-GLUCOSE METER (BEAKER) (test code = 1538) 140 mg/dL 70-110 H : TESTED AT [facility] [address], [address]: Registered Associate/Shared Services Representative ID = [id number] for NORMA REINA [id number] 16:06:00* Test Item Value Reference Range Interpretation Comments PHOSPHORUS (BEAKER) (test code = 604) 2.3 mg/dL 2.3-4.7 Registered Associate ID - NSSCOOBBXWQ9184-91-69 16:06:00* Test Item Value Reference Range Interpretation Comments MAGNESIUM (BEAKER) (test code = 627) 2.2 mg/dL 1.6-2.6 Registered Associate ID - BSBASIC METABOLIC [id number] 16:06:00* Test Item Value Reference Range Interpretation [...] GFR IS NOT APPLICABLE FOR DIALYSIS PATIENTS. Registered Associate ID - BSSpecimen moderately ictericHeparin pzewqkih5798-19-28 15:50:00* Test Item Value Reference Range Interpretation Comments Heparin Ab (test code = 3267-2) Negative Negative Heparin Antibody Optical Density (test code = 2659) 0.107 <0 .400 4T Total Score (test code = 2661) 5 FATIMAH (test code = FATIMAH) Probability of HIT based on scoring system: 6-8 = High probability; 4-5 = intermediate probability; 0-3 = low probability [facility] HospitalHEPARIN [id number] 15:50:00* Test Item Value Reference Range Interpretation Comments HEPARIN ANTIBODY (BEAKER) (test code = 646) Negative Negative HEPARIN ANTIBODY OD (BEAKER) (test code = 2659) 0.107 <0.400 4T TOTAL SCORE (BEAKER) (test code = 2661) 5 Probability of HIT based on scoring system: 6-8 = High probability; 4-5 = inter mediate probability; 0-3 = low probabilityPOCT-GLUCOSE [id number] 12:24:00 * Test Item Value Reference Range Interpretation Comments POC-GLUCOSE METER (BEAKER) (test code = 1538) 178 mg/dL 70-110 H : TESTED AT [place] [id number], [address]: Registered Associate/Shared Services Representative ID = [id number] for NORMA REINA CBC W/PLT COUNT & AUTO [id number] 08:29:00* Test Item Value Reference Range Interpretation [...] (CELLAVISION)(BEAKER) (test code = 3438) Dec reased Registered Associate ID - AlokClairerand comments: Slide comments: POCT-GLUCOSE [id number] 08:15:00* Test Item Value Reference Range Interpretation Comments POC-GLUCOSE METER (BEAKER) (test code = 1538) 93 mg/dL 70-110 : TESTED AT [facility] [address], [address]: Registered Associate/Shared Services Representative ID = [id number] for NORMA REINA [id number] 04:14:00* Test Item Value Reference Range Interpretation Comments PHOSPHORUS (BEAKER) (test code = 604) 2.7 mg/dL 2.3-4.7 Registered Associate ID - JOY [id number] 04:14:00* Test Item Value Reference Range Interpretation Comments MAGNESIUM (BEAKER) (test code = 627) 2.4 mg/dL 1.6-2.6 Registered Associate ID - JOY MHEPATIC FUNCTION [id number] 04:14:00* Test Item Value Reference Range Interpretation [...] (test code = 347) 24 U/L 6-55 Registered Associate ID - JOY MSpecimen markedly ictericBASIC METABOLIC [id number] 04:14:00* Test Item Value Reference Range Interpretation [...] GFR IS NOT APPLICABLE FOR DIALYSIS PATIENTS. Registered Associate ID - JOY MSpecimenir markedly ictericPOCT-GLUCOSE [id number] 23:18:00* Test Item Value Reference Range Interpretation Comments POC-GLUCOSE METER (BEAKER) (test code = 1538) 162 mg/dL 70-110 H : TESTED AT [place] [id number] [facility], [address]: Registered Associate/Shared Services Representative ID = [id number] for ALVIN STALLWORTH POCT-GLUCOSE [id number] 18:20:00* Test Item Value Reference Range Interpretation Comments POC-GLUCOSE METER (BEAKER) (test code = 1538) 152 mg/dL 70-110 H : TESTED AT [facility] [address], [address]: Registered Associate/Shared Services Representative ID = [id number] for NORMA REINA BASIC METABOLIC [id number] 17:28:00* Test Item Value Reference Range Interpretation [...] GFR IS NOT APPLICABLE FOR DIALYSIS PATIENTS. Registered Associate ID - IHSAN NSpecimen markedly nlunikgCNCQEOJKCH6843-83-26 17:17:00* Test Item Value Reference Range Interpretation Comments PHOSPHORUS (BEAKER) (test code = 604) 3.4 mg/dL 2.3-4.7 Registered Associate ID - IHSAN [id number] 17:17:00* Test Item Value Reference Range Interpretation Comments MAGNESIUM (BEAKER) (test code = 627) 1.9 mg/dL 1.6-2.6 Registered Associate ID Sally CHAMPAGNE NPOCT-GLUCOSE [id number] 14:46:00* Test Item Value Reference Range Interpretation Comments POC-GLUCOSE METER (BEAKER) (test code = 1538) 158 mg/dL 70-110 H : TESTED AT [address], [address]: Registered Associate/Shared Services Representative ID = [id number] for REINA YASMINWILLIAM Urine pwmgpml6854-53-88 10:34:00* Test Item Value Reference Range Interpretation Comments Result (test code = 6463-4) See comment FATIMAH (test code = FATIMAH) >100,000 col/mL skin nieves [facility] HospitalURINE [id number] 10:34:00* Test Item Value Reference Range Interpretation Comments CULTURE (BEAKER) (test code = 1095) See comment >100,000 col/mL skin floraPOCT-GLUCOSE [id number] 08:14:00* Test Item Value Reference Range Interpretation Comments POC-GLUCOSE METER (BEAKER) (test code = 1538) 128 mg/dL 70-110 H : TESTED AT [facility] [address], [address]: Registered Associate/Shared Services Representative ID = [id number] for NORMA REINA BASIC METABOLIC [id number] 05:05:00* Test Item Value Reference Range Interpretation [...] GFR IS NOT APPLICABLE FOR DIALYSIS PATIENTS. Registered Associate ID - JOY MSpecimen markedly rqrvstjRLBR1860-71-21 05:04:00* Test Item Value Reference Range Interpretation Comments PARTIAL THROMBOPLASTIN TIME (BEAKER) (test code = 760) 75.3 seconds 22.5-36.0 H [id number] 05:04:00* Test Item Value Reference Range Interpretation Comments MAGNESIUM (BEAKER) (test code = 627) 2.2 mg/dL 1.6-2.6 Specimen slightly hemolyzed Registered Associate ID - JOY [id number] 05:04:00* Test Item Value Reference Range Interpretation Comments PHOSPHORUS (BEAKER) (test code = 604) 2.2 mg/dL 2.3-4.7 L Specimen slightly hemolyzed Registered Associate ID - JOY MHEPATIC FUNCTION [id number] 05:04:00* Test Item Value Reference Range Interpretation [...] 347) 28 U/L 6-55 Specimen slightly hemolyzed Registered Associate ID - JOY MSpecimen markedly ictericCBC W/PLT [...] code = 2801) 3 % 0-1 H [id number] 23:33:00* Test Item Value Reference Range Interpretation Comments PARTIAL THROMBOPLASTIN TIME (BEAKER) (test code = 760) 66.7 seconds 22.5-36.0 H POCT-GLUCOSE [id number] 21:45:00* Test Item Value Reference Range Interpretation Comments POC-GLUCOSE METER (BEAKER) (test code = 1538) 140 mg/dL 70-110 H : TESTED AT [address], [address]: Registered Associate/Shared Services Representative ID = [id number] for RAWLS, DIMA Pkigvvkis2308-68-98 18:14:00* Test Item Value Reference Range Interpretation Comments Potassium (test code = 2823-3) 3.4 meq/L 3.5-5.1 L FATIMAH (test code = FATIMAH) Registered Associate ID - IHSAN N Lab Interpretation (test code = 03666-7) Abnormal [facility] HospitalPOTASSIUM2020-02-29 18:14:00* Test Item Value Reference Range Interpretation Comments POTASSIUM (BEAKER) (test code = 379) 3.4 meq/L 3.5-5.1 L Registered Associate SANDRINE CHAMPAGNE [id number] 18:01:00* Test Item Value Reference Range Interpretation Comments PARTIAL THROMBOPLASTIN TIME (BEAKER) (test code = 760) 72.2 seconds 22.5-36.0 H POCT-GLUCOSE [id number] 16:39:00* Test Item Value Reference Range Interpretation Comments POC-GLUCOSE METER (BEAKER) (test code = 1538) 140 mg/dL 70-110 H : TESTED AT [address], [address]: Registered Associate/Shared Services Representative ID = [id number] for KAELA ESCOBAR BASIC METABOLIC [id number] 15:03:00* Test Item Value Reference Range Interpretation [...] GFR IS NOT APPLICABLE FOR DIALYSIS PATIENTS. Registered Associate ID - JERMAINE CSpecimen markedly grkoxgqTMFMMTAJM6181-36-39 14:57:00* Test Item Value Reference Range Interpretation Comments MAGNESIUM (BEAKER) (test code = 627) 2.4 mg/dL 1.6-2.6 Specimen slightly hemolyzed Registered Associate ID - JERMAINE WXQGQHERXGU7802-26-28 14:57:00* Test Item Value Reference Range Interpretation Comments PHOSPHORUS (BEAKER) (test code = 604) 3.0 mg/dL 2.3-4.7 Specimen slightly hemolyzed Registered Associate ID - JERMAINE [id number] 11:34:00* Test Item Value Reference Range Interpretation Comments PARTIAL THROMBOPLASTIN TIME (BEAKER) (test code = 760) 64.5 seconds 22.5-36.0 H POCT-GLUCOSE [id number] 11:27:00* Test Item Value Reference Range Interpretation Comments POC-GLUCOSE METER (BEAKER) (test code = 1538) 201 mg/dL 70-110 H : TESTED AT [address], [address]: Registered Associate/Shared Services Representative ID = [id number] for KAELA ESCOBAR BLOOD [id number] 10:38:00* Test Item Value Reference Range Interpretation [...] GRAM STAIN RESULT (BEAKER) (test code = 332504) From a erobic bottle only: gram positive cocci in chains Bilirubin, [id number] 10:21:00* Test Item Value Reference Range Interpretation Comments Bilirubin, Direct (test code = 1968-7) 10.9 mg/dL 0.1-0.5 H Specimen slightly hemolyzed FATIMAH (test code = FATIMAH) Registered Associate ID - JERMAINE C Lab Interpretation (test code = 86398-3) [facility]normal [facility] HospitalBILIRUBIN, [id number] 10:21:00* Test Item Value Reference Range Interpretation Comments BILIRUBIN DIRECT (BEAKER) (test code = 706) 10.9 mg/dL 0.1-0.5 H Specimen slightly hemolyzed Registered Associate ID - JERMAINE CBLOOD [id number] 09:43:00* Test Item Value Reference Range Interpretation [...] GRAM STAIN RESULT (BEAKER) (test code = 599401) From a erobic and anaerobic bottles: gram negative rods POCT-GLUCOSE [id number] 07:44:00* Test Item Value Reference Range Interpretation Comments POC-GLUCOSE METER (BEAKER) (test code = 1538) 207 mg/dL 70-110 H : TESTED AT [facility] [address], [address]: Registered Associate/Shared Services Representative ID = [id number] for RAMESH SOMMERS Digoxin [id number] 06:07:00* Test Item Value Reference Range Interpretation Comments Digoxin Lvl (test code = 45534-1) 0.4 ng/mL 0.8-2 L FATIMAH (test code = FATIMAH) Registered Associate ID - LA Lab Interpretation (test code = 60838-3) Abnormal [facility] HospitalDIG[facility] [id number] 06:07:00* Test Item Value Reference Range Interpretation Comments DIGOXIN LEVEL (BEAKER) (test code = 669) 0.4 ng/mL 0.8-2.0 L Registered Associate ID - LATROPONIN [id number] 05:57:00* Test Item Value Reference Range Interpretation [...] acidosis, acute neurological disease, and per sistent tachyarrhythmia.Registered Associate ID - LACBC W/PLT COUNT & AUTO [...] = 2801) 1 % 0-1 COMPREHENSIVE METABOLIC [id number] 03:48:00* Test Item Value Reference Range Interpretation [...] GFR IS NOT APPLICABLE FOR DIALYSIS PATIENTS. Registered Associate ID - LASpecimen markedly xhoietcTRIOQINDKF6600-88-48 03:47:00* Test Item Value Reference Range Interpretation Comments PHOSPHORUS (BEAKER) (test code = 604) 1.2 mg/dL 2.3-4.7 LL Specimen slightly hemolyzed Registered Associate ID - LABlood gas, ntlsdcoc7083-65-33 03:43:00* Test Item Value Reference Range Interpretation [...] 28 % Lab Interpretation (test code = 92667-4) Abnormal [facility], [id number] 03:43:00* Test Item Value Reference Range Interpretation [...] (BEAKER) (test code = 1819) 28.0 % [id number] 03:40:00* Test Item Value Reference Range Interpretation Comments MAGNESIUM (BEAKER) (test code = 627) 2.4 mg/dL 1.6-2.6 Specimen slightly hemolyzed Registered Associate ID - [id number] 03:38:00* Test Item Value Reference Range Interpretation Comments PARTIAL THROMBOPLASTIN TIME (BEAKER) (test code = 760) 52.0 seconds 22.5-36.0 H RAD, ABDOMEN/KUB, 1 VIEW [id number] 02:38:00Reason for exam:->new abdominal pain, worst in [...] Date/Time: 09/09/2019 02:38:19 abdomen / KUB 1 [id number] 02:38:00 Interface, External Ris In - 09/09/2019 2:41 AM CSTFINAL REPORT PATIENT ID: [id number] RAD, ABDOMEN/KUB, 1 VIEW AP CLINICAL HISTORY: [...] Date/Time: 09/09/2019 02:38 :19 A M [facility] HospitalLACT[facility] ACID, [id number] 02:11:00* Test Item Value Reference Range Interpretation Comments LACTATE BLOOD VENOUS (2) (STACIEAKER) (test code = 2872) 1.9 mmol/L 0 .5-2.2 Specimen slightly hemolyzed Registered Associate ID - LASpecimen moderately ictericTROPONIN [id number] 01:08:00* Test Item Value Reference Range Interpretation [...] acidosis, acute neurological disease, and per sistent tachyarrhythmia.Registered Associate ID - BARRINGTON WPOCT-GLUCOSE [id number] 22:56:00* Test Item Value Reference Range Interpretation Comments POC-GLUCOSE METER (CECY) (test code = 1538) 174 mg/dL 70-110 H : TESTED AT [facility] [address], [address]: Registered Associate/Shared Services Representative ID = [id number] for GÓMEZ GARCIA TROPONIN [id number] 18:52:00* Test Item Value Reference Range Interpretation [...] acidosis, acute neurological disease, and per sistent tachyarrhythmia.Registered Associate ID - BSClostridium difficile GDH Toxin 2019-09-08 18:45:00* Test Item Value Reference Range Interpretation Comments C. Difficle Toxin (test code = 8974641892) Negative Negative C. Difficile GDH Antigen (test code = 3439027403) Negative Nega tive No indication of Clostridium [...] of kit performance was done by the [facility] Microbiology Lab prior to clinical use. Lab Interpretation (test code = 94349-3) Normal [facility]. DIFFICILE GDH [id number] 18:45:00* Test Item Value Reference Range Interpretation Comments CDT TOXIN (test code = 8441174734) Negative Negative CDT GDH ANTIGEN (test code = 2689602495) Negative Negative No indication of Clostridium difficile infection and no colonization. Discontinue enteric isolation and therapy. Testing performed by [employer] Rapid Cassette Assay. For GDH, published sensitivity of the assay is 98.7% compared to cytotoxicity testing. For Toxin AB, publishe d sensitivity is 87.8% and specificity 99.4% compared to cytotoxicity testing.Ve rification of kit performance was done by the [facility] Microbiology Lab prior to cl inical use.[id number] 18:36:00* Test Item Value Reference Range Interpretation Comments MAGNESIUM (BEAKER) (test code = 627) 2.7 mg/dL 1.6-2.6 H Specimen slightly hemolyzed Registered Associate ID - MCLIQYYCILD7030-76-00 18:36:00* Test Item Value Reference Range Interpretation Comments POTASSIUM (BEAKER) (test code = 379) 3.8 meq/L 3.5-5.1 Specimen slightly hemolyzed Registered Associate ID - BSPOCT-GLUCOSE [id number] 17:15:00* Test Item Value Reference Range Interpretation Comments POC-GLUCOSE METER (BEAKER) (test code = 1538) 228 mg/dL 70-110 H : TESTED AT [facility] [address], [address]: Registered Associate/Shared Services Representative ID = [id number] for GUMATAY, RAMESH TROPONIN [id number] 14:05:00* Test Item Value Reference Range Interpretation [...] acidosis, acute neurological disease, and per sistent tachyarrhythmia.Registered Associate ID - SINTIA POWELL/Caesar, HEPATIC PORTAL VESSEL WITH [id number] 14:01:00Reason for exam:->persistent mild intrahepatic prominance, eval [...] MDRcaitlyn Verified Date/Time: 09/08/2019 14:01:36 Reading Location: [facility] C013W Consult Reading Room Hepatic Portal Vessel with Ujffsag9805-45-95 14:01:00Interface, External Ris In - 09/08/2019 2:01 [...] Chan Verified Date/Time: 09/08/2019 14:01:36 Reading Location: [facility] B1 C013W Consult Reading Room [facility] Hospital[facility]IC [id number] 13:56:00* Test Item Value Reference Range Interpretation [...] GFR IS NOT APPLICABLE FOR DIALYSIS PATIENTS. Registered Associate ID Sally Banks markedly ictericLactic Acid, Ifvtantr9359-22-82 13:52:00* Test Item Value Reference Range Interpretation Comments Lactate, Art (test code = 2874) 2.1 mmol/L 0.5-2.2 FATIMAH (test code = FATIMHA) Registered Associate SANDRINE Banks moderately icte joel Lab Interpretation (test code = 18227-4) Normal [facility] HospitalLACTIC ACID, [id number] 13:52:00* Test Item Value Reference Range Interpretation Comments LACTATE BLOOD ARTERIAL (2) (BEAKER) (test code = 2874) 2.1 mmol/L 0.5-2.2 Registered Associate ID Sally Banks moderately ictericTROPONIN [id number] 12:38:00* Test Item Value Reference Range Interpretation [...] acidosis, acute neurological disease, and per sistent tachyarrhythmia.Registered Associate ID - PIAYA LPOCT-GLUCOSE [id number] 11:58:00* Test Item Value Reference Range Interpretation Comments POC-GLUCOSE METER (BEAKER) (test code = 1538) 227 mg/dL 70-110 H : TESTED AT [facility] [address], [address]: Registered Associate/Shared Services Representative ID = [id number] for [facility] BASIC METABOLIC [id number] 11:48:00* Test Item Value Reference Range Interpretation [...] GFR IS NOT APPLICABLE FOR DIALYSIS PATIENTS. Registered Associate ID - PIAYA LSpecimen markedly ictericTROPONIN [id number] 11:19:00* Test Item Value Reference Range Interpretation [...] acidosis, acute neurological disease, and per sistent tachyarrhythmia.Registered Associate ID Sally PATRICIO [id number] 09:22:00* Test Item Value Reference Range Interpretation Comments PARTIAL THROMBOPLASTIN TIME (BEAKER) (test code = 760) 65.9 seconds 22.5-36.0 H Qapghjdwzi5603-23-72 09:21:00* Test Item Value Reference Range Interpretation Comments Fibrinogen (test code = 3255-7) 784 mg/dl 225-434 H Lab Interpretation (test code = 60551-6) Abnormal [facility] HospitalFIBRINOGEN2020-02-28 09:21:00* Test Item Value Reference Range Interpretation Comments FIBRINOGEN LEVEL (BEAKER) (test code = 658) 784 mg/dl 225-434 H PROTHROMBIN TIME/[id number] 09:20:00* Test Item Value Reference Range Interpretation [...] 2.5-3.5 for patie nts wiht mechanical heart valves.Mzblimjsvna7707-77-75 09:13:00* Test Item Value Reference Range Interpretation Comments Haptoglobin (test code = 4542-7) 136 mg/dL 14-258 FATIMAH (test code = FATIMAH) Registered Associate ID - SINTIA L Lab Interpretation (test code = 44192-7) Normal [facility] HospitalHAPTOGLOBIN2020-02-28 09:13:00* Test Item Value Reference Range Interpretation Comments HAPTOGLOBIN (BEAKER) (test code = 366) 136 mg/dL 14-258 Registered Associate ID Sally PATRICIO LLactate dehydrogenase (LDH)2019-09-08 08:58:00* Test Item Value Reference Range Interpretation Comments LDH (test code = 2532-0) 246 U/L 125-220 H FATIMAH (test code = FATIMAH) Registered Associate ID - SINTIA L Lab Interpretation (test code = 14805-8) [facility] [id number] 08:58:00* Test Item Value Reference Range Interpretation Comments POC-GLUCOSE METER (BEAKER) (test code = 1538) 165 mg/dL 70-110 H : TESTED AT [facility] [address] [facility] [place], [address]: Registered Associate/Shared Services Representative ID = [id number] for CONCEPCION LAWRENCE LACTATE DEHYDROGENASE (LDH)2019-09-08 08:58:00* Test Item Value Reference Range Interpretation Comments LACTATE DEHYDROGENASE (BEAKER) (test code = 635) 246 U/L 125-2 20 H Registered Associate ID Sally PATRICIO LCBC W/PLT COUNT & AUTO [id number] 08:39:00* Test Item Value Reference Range Interpretation [...] (CELLAVISION)(BEAKER) (test code = 3438) Dec reased Registered Associate ID - Shauna Jon comments: Slide comments: WBC: SEGMENTED WI TH TOXIC GRANULATIONS PRESENT 2D Echo W/Doppler(CW/PW/Color)2019-09-08 07:49:00 Ejection FractionSLEH ECHO HEARTLAB MKCKESSON CPACSInterface, External Ris In - 09/08/2019 7:49 AM CSTTransthoracic Echocardiography Report (TTE) Demographics Patient Name SRAVAN TONY Date of Study 09/07/2019 CAHANIN Gender Female Visit Numb er [id number] Race Unknown Room Number 7303 Number Date of 1940 Referring Physician Gale Mckenna MD Age 79 year(s) Curriculum And Instruction Specialist Laz Blas Mechanical Adjuster Marilee Arauz, Interpreting Gale barboza MD [facility] Physician Mecca aparicio MD Procedure Type of [...] CO: 7.82 l/min LVOT CI: 3.91 l/min/m^2 [facility] [id number] 07:03:00* Test Item Value Reference Range Interpretation Comments MAGNESIUM (BEAKER) (test code = 627) 1.5 mg/dL 1.6-2.6 L Specimen slightly hemolyzed Registered Associate ID - PIAYA SVDDSGSMRDT9651-83-37 07:03:00* Test Item Value Reference Range Interpretation Comments PHOSPHORUS (BEAKER) (test code = 604) 2.5 mg/dL 2.3-4.7 Specimen slightly hemolyzed Registered Associate ID - PIAYA LCOMPREHENSIVE METABOLIC [id number] 05:00:00* Test Item Value Reference Range Interpretation [...] GFR IS NOT APPLICABLE FOR DIALYSIS PATIENTS. Registered Associate ID Sally Banks moderately gblylciEHJO8221-81-97 02:30:00* Test Item Value Reference Range Interpretation Comments PARTIAL THROMBOPLASTIN TIME (BEAKER) (test code = 760) 79.6 seconds 22.5-36.0 H LACTIC ACID, [id number] 01:55:00* Test Item Value Reference Range Interpretation Comments LACTATE BLOOD VENOUS (2) (BEAKER) (test code = 2872) 2.1 mmol/L 0 .5-2.2 Registered Associate ID Sally Banks moderately ictericPOCT-GLUCOSE [id number] 21:29:00* Test Item Value Reference Range Interpretation Comments POC-GLUCOSE METER (BEAKER) (test code = 1538) 220 mg/dL 70-110 H : TESTED AT [address], [address]: Registered Associate/Shared Services Representative ID = [id number] for GÓMEZ GARCIA [id number] 20:18:00* Test Item Value Reference Range Interpretation Comments PARTIAL THROMBOPLASTIN TIME (BEAKER) (test code = 760) 56.8 seconds 22.5-36.0 H LACTIC ACID, [id number] 17:14:00* Test Item Value Reference Range Interpretation Comments LACTATE BLOOD ARTERIAL (2) (BEAKER) (test code = 2874) 4.4 mmol/L 0.5-2.2 H Specimen slightly hemolyzed Registered Associate SANDRINE Esquivel moderately ictericBLOOD GAS, [id number] 16:39:00* Test Item Value Reference Range Interpretation [...] 45.0 % RAD, CHEST, 1 VIEW, NON [id number] 16:14:00Reason for exam:->Line placementShould this be performed at the bedside?->YesFINAL REPORT Chest, portable AP view History: Line placement Comparison: 09/06/2019 IMPRESSION: Right neck central venous catheter terminates over the mid SVC. The heart is within normal limits of size. Patient status post median sternotomy. The aorta demonstrates atherosclerotic calcification. Bibasilar atelectasis is present. No pneumothorax. No sizable pleural effusion. Signed: Jose Alberto Chan MDRepssm health care Verified Date/Time: 09/07/2019 16:14:41 Reading Location: [address] Consult Reading Room [id number] 14:11:00* Test Item Value Reference Range Interpretation Comments PARTIAL THROMBOPLASTIN TIME (BEAKER) (test code = 760) 39.7 seconds 22.5-36.0 H Prior to initiating heparinLACTIC ACID, [id number] 14:07:00* Test Item Value Reference Range Interpretation Comments LACTATE BLOOD VENOUS (2) (BEAKER) (test code = 2872) 5.9 mmol/L 0 .5-2.2 H Registered Associate ID - SHAUNA FSpecimen moderately ictericPlatelet [id number] 14:01:00* Test Item Value Reference Range Interpretation Comments Platelets (test code = 777-3) 80 150- 450 K/CU MM L FATIMAH (test code = FATIMAH) Registered Associate ID - [id number] Lab Interpretation (test code = 63543-4) [facility]normal [facility] HospitalPLATE[facility] [id number] 14:01:00* Test Item Value Reference Range Interpretation Comments PLATELET COUNT (BEAKER) (test code = 756) 80 K/CU MM 150-450 L Registered Associate ID - 6000Hemoglobin [id number] 13:50:00* Test Item Value Reference Range Interpretation Comments Hemoglobin A1C (test code = 4548-4) 6.5 % 4.3-6.1 H Lab Interpretation (test code = 86282-3) Abnormal [facility] HospitalHEMOGLOBIN [id number] 13:50:00* Test Item Value Reference Range Interpretation Comments HEMOGLOBIN A1C (BEAKER) (test code = 368) 6.5 % 4.3-6.1 H CBC W/PLT COUNT & AUTO [id number] 13:21:00* Test Item Value Reference Range Interpretation [...] (CELLAVISION)(BEAKER) (test code = 3438) Dec reased Registered Associate ID - [id number] ID - Audra Rose comments: Slide comments: POCT- GLUCOSE [id number] 12:48:00* Test Item Value Reference Range Interpretation Comments POC-GLUCOSE METER (BEAKER) (test code = 1538) 206 mg/dL 70-110 H : TESTED AT [facility] [address] [facility], [address]: Registered Associate/Shared Services Representative ID = [id number] for JOSE NIKKI TROPONIN [id number] 11:29:00* Test Item Value Reference Range Interpretation [...] acidosis, acute neurological disease, and per sistent tachyarrhythmia.Registered Associate ID Sally COLON MCOMPREHENSIVE METABOLIC PANEL 2019-09-07 [...] GFR IS NOT APPLICABLE FOR DIALYSIS PATIENTS. Registered Associate ID Sally COLON MSpecimen moderately ictericLACTIC ACID, [id number] 11:04:00* Test Item Value Reference Range Interpretation Comments LACTATE BLOOD VENOUS (2) (BEAKER) (test code = 2872) 5.2 mmol/L 0 .5-2.2 H Registered Associate ID Sally Luaecimen moderately ictericPOCT-GLUCOSE [id number] 09:36:00* Test Item Value Reference Range Interpretation Comments POC-GLUCOSE METER (BEAKER) (test code = 1538) 169 mg/dL 70-110 H : TESTED AT [facility] [address] [facility], [address]: Registered Associate/Shared Services Representative ID = [id number] for Mindy Montenegro POCT-GLUCOSE [id number] 21:35:00* Test Item Value Reference Range Interpretation Comments POC-GLUCOSE METER (BEAKER) (test code = 1538) 142 mg/dL 70-110 H : TESTED AT [facility] [address] [facility], [address]: Registered Associate/Shared Services Representative ID = [id number] for GÓMEZ GARCIA TROPONIN [id number] 20:51:00* Test Item Value Reference Range Interpretation [...] acidosis, acute neurological disease, and per sistent tachyarrhythmia.Registered Associate ID - ADMINB-TYPE NATRIURETIC FACTOR (BNP) 2019-09-06 20:48:00* Test Item Value Reference Range Interpretation Comments B-TYPE NATRIURETIC PEPTIDE (BEAKER) (test code = 700) 1060 pg/mL 0-100 H Registered Associate ID - [id number] 20:47:00* Test Item Value Reference Range Interpretation Comments PARTIAL THROMBOPLASTIN TIME (BEAKER) (test code = 760) 46.2 seconds 22.5-36.0 H 6 hours after starting heparin infusion and as indicated per sliding scaleBlood Culture Panel(BioLOC&ALLe)2019-09-06 19:42:00* Test Item Value Reference Range Interpretation Comments LISTERIA MONOCYTOGENES (test code = 13640-3) Not detected Not detec chica STAPHYLOCOCCUS (test code = 73727-2) Not detected Not detected STAPHYLOCOCCUS AUREUS (test code = 93966-8) Not detected Not detect ed Streptococcus (test code = 98732-1) Detected Not detected A First line therapy: VancomycinDe-escalate based on susceptibilities Reference Range: Not Detected STREPTOCOCCUS AGALACTIAE (GROUP B) (test code = 77024-1) Not detected Not detected STREPTOCOCCUS PNEUMONIAE (test code = 99303-3) Detected Not det ected A First line therapy: CeftriaxoneIf meningitis, add vancomycin while awaiting susceptibilities Reference Range: Not Detected Streptococcus pyogenes (Group A) (test code = 42885-1) Not d etected Not detected ACINETOBACTER BAUMANNII (test code = 97951-2) Not detected Not dete cted HAEMOPHILUS INFLUENZAE (test code = 86300-2) Not detected Not detec chica NEISSERIA MENINGITIDIS (test code = 57925-0) Not detected Not detec chica ENTEROBACTERIACEAE (test code = 45919-5) Detected Not detected A ENTEROBACTER CLOACOE COMPLEX (test code = 31145-1) Detected Not detected A Enterobacter cloacae complexKPC not detected (a carbapenamase gene)First-line therapy: Cefepime or MeropenemDe-escalate based on susceptibilitiesReference Range: Not Detected KLEBSIELLA OXYTOCA (test code = 01053-2) Not detected Not detected KLEBSIELLA PNEUMONIAE (test code = 42320-3) Not detected Not detect ed PROTEUS (test code = 73774-4) SERRATIA MARCESCENS (test code = 86498-2) Not detected Not detected JAREK ALBICANS (test code = 63556-3) Not detected Not detected JAREK GLABRATA (test code = 77255-3) Not detected Not detected JAREK KRUSEI (test code = 68098-1) Not detected Not detected JAREK PARAPSILOSIS (test code = 06784-4) Not detected Not detecte d JAREK TROPICALIS (test code = 12498-6) Not detected Not detected ESCHERICHIA COLI (test code = 16098-0) Not detected Not detected METHICILLIN-RESISTANCE GENE (test code = 23090-5) VANCOMYCIN-RESISTANCE GENE (test code = 68498-6) CARBAPENEM-RESISTANCE GENE (test code = 06687-3) Not detected Not d etected ENTEROCOCCUS (test code = 57156-4) Not detected Not detected PSEUDOMONAS AERUGINOSA (test code = 50925-6) Not detected Not detec chica FATIMAH (test [...] decisions. This sample was tested at the [facility] using the [employer] Blood Culture ID Panel. It is FDA cleared and has been verified and approved by the [facility] for clinical use. This laboratory is CLIA-certified and [employer] ([employer])-accredited to perform high complexity testing. Lab Interpretation (test code = 50763-0) Abnormal [facility] IDENTIFICATION [id number] 19:42:00* Test Item Value Reference Range Interpretation Comments LISTERIA MONOCYTOGENES (test code = 3985483) Not detected Not detec chica STAPHYLOCOCCUS (test code = 8824411) Not detected Not detected STAPHYLOCOCCUS AUREUS (test code = 5824226) Not detected Not detect ed STREPTOCOCCUS (test code = 6668622) Detected Not detected A First line therapy: VancomycinDe-escalate based on susceptibilities Reference Range: Not Detected STREPTOCOCCUS AGALACTIAE (GROUP B) (test code = 5241548) Not detected Not detected STREPTOCOCCUS PNEUMONIAE (test code = 9704958) Detected Not det ected A First line therapy: CeftriaxoneIf meningitis, add vancomycin while awaiting susceptibilities Reference Range: Not Detected STREPTOCOCCUS PYOGENES (GROUP A) (test code = 9246285) Not d etected Not detected ACINETOBACTER BAUMANNII (test code = 5889403) Not detected Not dete cted HAEMOPHILUS INFLUENZAE (test code = 5298763) Not detected Not detec chica NEISSERIA MENINGITIDIS (test code = 3846975) Not detected Not detec chica ENTEROBACTERIACEAE (test code = 3492411) Detected Not detected A ENTEROBACTER CLOACOE COMPLEX (test code = 6911899) Detected Not detected A Enterobacter cloacae complexKPC not detected (a carbapenamase gene)First-line therapy: Cefepime or MeropenemDe-escalate based on susceptibilitiesReference Range: Not Detected KLEBSIELLA OXYTOCA (test code = 9695232) Not detected Not detected KLEBSIELLA PNEUMONIAE (test code = 1650) Not detected Not detected PROTEUS (test code = 8524650) SERRATIA MARCESCENS (test code = 4718032) Not detected Not detected JAREK ALBICANS (test code = 2553395) Not detected Not detected JAREK GLABRATA (test code = 2025825) Not detected Not detected JAREK KRUSEI (test code = 2660460) Not detected Not detected JAREK PARAPSILOSIS (test code = 8509200) Not detected Not detecte d JAREK TROPICALIS (test code = 9263924) Not detected Not detected ESCHERICHIA COLI (test code = 4272955) Not detected Not detected METHICILLIN-RESISTANCE GENE (test code = 5743448) VANCOMYCIN-RESISTANCE GENE (test code = 3922765) CARBAPENEM-RESISTANCE GENE (test code = 7701088) Not detected Not d etected ENTEROCOCCUS-BEAKER (test code = 8571765) Not detected Not detected PSEUDOMONAS AERUGINOSA-BEAKER (test code = 0332798) Not detected No t detected Other bacteria and resistance markers not targeted by this PCR panel cannot be e xcluded; therefore clinical correlation and follow up of serology, culture resul ts, and other molecular studies is required. The results are not intended to be used as the sole means for clinical diagnosis or patient management decisions. T his sample was tested at the [facility] using the [employer] (formerly [employer]) Blood Culture ID Panel. It is FDA cleared and has been verified and approved by the [facility] for clinical use. Thi s laboratory is CLIA-certified and [employer] ([employer])-accred ited to perform high complexity testing.TROPONIN [id number] 19:06:00* Test Item Value Reference Range Interpretation [...] acidosis, acute neurological disease, and per sistent tachyarrhythmia.Registered Associate ID - BSPOCT-GLUCOSE [id number] 17:56:00* Test Item Value Reference Range Interpretation Comments POC-GLUCOSE METER (CECY) (test code = 1538) 183 mg/dL 70-110 H : Notified RN/MD: TESTED AT [facility] [address], [address]: Registered Associate/Shared Services Representative ID = [id number] for EMILYCONCEPCION BARAHONA Hglnhfgz8592-30-15 17:00:00* Test Item Value Reference Range Interpretation Comments Ferritin (test code = 2276-4) 391 ng/mL 5-275 H FATIMAH (test code = FATIMAH) Registered Associate ID - ADMIN Lab Interpretation (test code = 70874-1) [facility]normal [facility] 17:00:00* Test Item Value Reference Range Interpretation Comments FERRITIN (BEAKER) (test code = 361) 391 ng/mL 5-275 H Registered Associate ID - ADMINTROPONIN [id number] 16:53:00* Test Item Value Reference Range Interpretation [...] acidosis, acute neurological disease, and per sistent tachyarrhythmia.Registered Associate ID - ADMINLACTIC ACID, [id number] 16:46:00* Test Item Value Reference Range Interpretation Comments LACTATE BLOOD VENOUS (2) (BEAKER) (test code = 2872) 4.1 mmol/L 0 .5-2.2 H Specimen slightly hemolyzed Registered Associate ID - ADMINSpecimen moderately ictericIron, TIBC, % sat. (without ferritin)2019-09-06 16:39:00* Test Item Value Reference Range Interpretation Comments Iron (test code = 2498-4) 12.0 ug/dL 40-160 L TIBC (test code = 2500-7) 236 ug/dL 250-450 L Iron % Saturation (test code = 2502-3) 5 % 20-55 L FATIMAH (test code = FATIMAH) Registered Associate ID - ADMIN Lab Interpretation (test code = 04944-3) Abnormal [facility] HospitalIR[facility], TIBC, % SAT. (WITHOUT FERRITIN)2019-09-06 16:39:00* Test Item Value Reference Range Interpretation Comments IRON (BEAKER) (test code = 547) 12.0 ug/dL 40.0-160.0 L TOTAL IRON BINDING CAPACITY (BEAKER) (test code = 769) 236 ug/dL 250-450 L IRON % SATURATION (2) (BEAKER) (test code = 2590) 5 % 20-5 5 L Registered Associate ID - ADMINBASIC METABOLIC [id number] 16:37:00* Test Item Value Reference Range Interpretation [...] GFR IS NOT APPLICABLE FOR DIALYSIS PATIENTS. Registered Associate ID - ADMINSpecimen moderately ictericLACTIC ACID, [id number] 13:58:00* Test Item Value Reference Range Interpretation Comments LACTATE BLOOD VENOUS (2) (BEAKER) (test code = 2872) 5.1 mmol/L 0 .5-2.2 H Specimen markedly hemolyzed Registered Associate ID - DBSpecimen moderately ictericReticulocyte kjcyy8137-26-06 13:52:00 * Test Item Value Reference Range Interpretation Comments % Retic (test code = 80736-1) 5.3 % 0.5-1.7 H FATIMAH (test code = FATIMAH) Registered Associate ID - [id number] Lab Interpretation (test code = 94384-4) [facility]normal [facility] HospitalRETICULOCYTE [id number] 13:52:00* Test Item Value Reference Range Interpretation Comments RETICULOCYTE COUNT PCT (BEAKER) (test code = 575) 5.3 % 0.5- 1.7 H Registered Associate ID - 6000POCT-GLUCOSE [id number] 13:47:00* Test Item Value Reference Range Interpretation Comments POC-GLUCOSE METER (BEAKER) (test code = 1538) 213 mg/dL 70-110 H : TESTED AT [facility] [address], [address]: Registered Associate/Shared Services Representative ID = [id number] for BOBY SAINZ Sodium, random [id number] 13:20:00* Test Item Value Reference Range Interpretation Comments Sodium Urine (test code = 2955-3) 58 meq/L FATIMAH (test code = FATIMAH) Reference Range: No NormalsOperator ID - DB [facility] HospitalCREATININE, RANDOM [id number] 13:20:00* Test Item Value Reference Range Interpretation Comments CREATININE URINE (BEAKER) (test code = 375) 116.6 mg/dL Reference Range: No NormalsOperator ID - DBSODIUM, RANDOM [id number] 13:20:00* Test Item Value Reference Range Interpretation Comments SODIUM URINE (BEAKER) (test code = 243) 58 meq/L Reference Range: No NormalsOperator ID - DBTROPONIN [id number] 12:36:00* Test Item Value Reference Range Interpretation [...] acidosis, acute neurological disease, and per sistent tachyarrhythmia.Registered Associate ID - DBTROPONIN [id number] 11:58:00* Test Item Value Reference Range Interpretation [...] acidosis, acute neurological disease, and per sistent tachyarrhythmia.Registered Associate ID - QPSrodgjvwrpbmb4569-44-75 11:40:00* Test Item Value Reference Range Interpretation Comments Procalcitonin (test code = 29957-0) 39.98 ng/mL <0.05 HH FATIMAH (test code = FATIMAH) SEPSIS RISK (ng/mL)Low: 0.05-0.50Intermediate: 0.51-2.00High: >=2.01 Lab Interpretation (test code = 05268-7) Abnormal [facility] HospitalFclqafTHTBSRKJDKLWT8152-52-55 11:40:00* Test Item Value Reference Range Interpretation Comments PROCALCITONIN (BEAKER) (test code = 3036) 39.98 ng/mL <0.05 HH SEPSIS RISK (ng/mL)Low: 0.05-0.50Intermediate: 0.51-2.00High: > =2.01CT, [id number] 10:46:00Reason for exam:->pancreatic tumorWhat is the patient's [...] Verified Date/Time: 09/06/2019 10:46:13 Reading Locat ion: [facility] B1 C013Y CT Body Reading Room abdomen pelvis without ylaaqagk6890-07-53 10:46:00Interface, External Ris In - 09/06/2019 10:48 [...] Manda Sanders Date/Time: 09/06/2019 10:46:13 Reading Location: [facility] B1 C013Y CT Body Re ading Room 1 0:46 AM [facility] HospitalLACTIC ACID, [id number] 10:23:00* Test Item Value Reference Range Interpretation Comments LACTATE BLOOD VENOUS (2) (BEAKER) (test code = 2872) 4.5 mmol/L 0 .5-2.2 H Specimen moderately hemolyzed Registered Associate ID - DBSpecimen moderately ictericLACTIC ACID, [id number] 07:25:00* Test Item Value Reference Range Interpretation Comments LACTATE BLOOD VENOUS (2) (BEAKER) (test code = 2872) 3.9 mmol/L 0 .5-2.2 H Specimen slightly hemolyzed Registered Associate ID - DBSpecimen moderately ictericBASIC METABOLIC [id number] 05:58:00* Test Item Value Reference Range Interpretation [...] GFR IS NOT APPLICABLE FOR DIALYSIS PATIENTS. Registered Associate ID - DBSpecimen moderately ictericKetones, [id number] 05:49:00* Test Item Value Reference Range Interpretation Comments Ketones, Blood (test code = 1103) 0.2 mmol/L <0.4 Lab Interpretation (test code = 24213-1) Normal [facility] CenterKETONE, [id number] 05:49:00* Test Item Value Reference Range Interpretation Comments KETONES, BLOOD (BEAKER) (test code = 1103) 0.2 mmol/L <0.4 POCT-GLUCOSE [id number] 05:15:00* Test Item Value Reference Range Interpretation Comments POC-GLUCOSE METER (BEAKER) (test code = 1538) 254 mg/dL 70-110 H : TESTED AT [facility] [address], [address]: Registered Associate/Shared Services Representative ID = [id number] for RAND DAVID BASIC METABOLIC [id number] 03:29:00* Test Item Value Reference Range Interpretation [...] GFR IS NOT APPLICABLE FOR DIALYSIS PATIENTS. Registered Associate ID - JOY MSpecimen moderately ictericUrinalysis w/Microscopic 2019-09-06 03:25:00* Test Item Value Reference Range Interpretation Comments Color, UA (test code = 5778-6) [place] Clarity, UA (test code = 5767-9) Hazy Specific [place], UA (test code = 5811-5) 1.019 1.001-1.035 pH, UA (test code = 5803-2) 6.0 5.0-8.0 Protein, UA (test code = 38013-1) 50 mg/dL Negative A Glucose, UA (test code = 365) 30 mg/dL Negative A Ketones, UA (test code = 2514-8) Negative Negative Bilirubin, UA (test code = 85282-1) Positive Negative A Blood, UA (test code = 54333-1) Trace Negative A Nitrite, UA (test code = 5802-4) Negative Negative Leukocytes, UA (test code = 5799-2) Negative Negative Urobilinogen, UA (test code = 44290-3) 3.0 mg/dL 0.2-1 H RBC, UA (test code = 52548-6) 21 /HPF WBC, UA (test code = 5821-4) 10 /HPF Squam Epithel, UA (test code = 90364-6) 4 /HPF Granular Casts, UA (test code = 5793-5) 5 /LPF Amorphous Crystals (test code = 96385-6) Few Specimen Source (test code = 2795) FATIMAH (test code = FATIMAH) Registered Associate ID - [auto]Registered Associate ID - tech Lab Interpretation (test code = 51454-1) [facility]normal [facility] HospitalURINALYSIS W/ [id number] 03:25:00* Test Item Value Reference Range Interpretation Comments COLOR (BEAKER) (test code = 470) [place] CLARITY (BEAKER) (test code = 469) Hazy [...] 1584) Few SOURCE(BEAKER) (test code = 2795) Registered Associate ID - [auto]Registered Associate ID - techCBC W/PLT COUNT & AUTO [...] (test code = 2801) 1 % 0-1 PT/[id number] 02:16:00* Test Item Value Reference Range Interpretation [...] 2.5-3.5 for patie nts wiht mechanical heart valves.Nidcgtz2773-63-94 02:05:00* Test Item Value Reference Range Interpretation Comments Ammonia (test code = 19871-2) 55 18- 72 mol/L FATIMAH (test code = FATIMAH) Registered Associate ID - JOY M Lab Interpretation (test code = 79714-9) Normal [facility] HospitalAMMONIA2020-02-26 02:05:00* Test Item Value Reference Range Interpretation Comments AMMONIA (BEAKER) (test code = 348) 55 mol/L 18-72 Registered Associate ID - JOY MKETONE, [id number] 01:58:00* Test Item Value Reference Range Interpretation Comments KETONES, BLOOD (BEAKER) (test code = 1103) 0.6 mmol/L <0.4 H TROPONIN [id number] 01:41:00* Test Item Value Reference Range Interpretation [...] acidosis, acute neurological disease, and per sistent tachyarrhythmia.Registered Associate ID - JOY MCardiac Enzymes - [id number] 01:35:00* Test Item Value Reference Range Interpretation Comments Total CK (test code = 2157-6) 66 U/L 29-200 FATIMAH (test code = FATIMAH) Registered Associate ID - JOY M Lab Interpretation (test code = 43369-1) Normal [facility] HospitalCREATINE KINASE (CK)2019-09-06 01:35:00* Test Item Value Reference Range Interpretation Comments CREATINE KINASE TOTAL (BEAKER) (test code = 380) 66 U/L 29-20 0 Registered Associate ID - JOY MHEPATIC FUNCTION [id number] 01:35:00* Test Item Value Reference Range Interpretation [...] 79 U/L 6-55 H Specimen moderately hemolyzed Registered Associate ID - JOY MSpecimen moderately ebcockqJZYRII3991-06-62 01:35:00* Test Item Value Reference Range Interpretation Comments LIPASE (BEAKER) (test code = 749) 49 U/L 8-78 Registered Associate ID - JOY MSpecimen moderately ictericRAD, PELVIS, [...] Date/Time: 09/06/2019 01:15:07 pelvis 1 or 2 [id number] 01:15:00Interface, External Ris In - 09/06/2019 1:17 [...] MATEO ARCHER MD on 01:15 AM [facility] HospitalRAD, CHEST, 1 VIEW, NON DEPT [...] patient or surrogate and examination of patient. [facility] Interpretation 2019-09-06 00:47:47Julien Krishna MD 09/06/2019 4:20 AMECG/EKG InterpretationDate/Time: 09/06/2019 1:28 AMPerformed by: Julien Krishna MDAuthorized by: Julien Krishna MD The ECG was interpreted by ED physician. This ECG was not compared with previous ECG(s).The ECG is interpreted as sinus rhythm. Rate is normal rate. [place] is left. Clinical Impression: non- specific ECGECG reviewed and does not meet STEMI criteria. Patient tolerance: Patient tolerated the procedure well with no immediate complications [facility] HospitalCT, [facility]RAIN, WITHOUT [id number] 23:41:00Reason for exam:->FALLWhat is the patient's sedation [...] hemorrhage or calvarial fracture. Signed: [facility]o [facility] Verified Date/Time: 09/05/2019 23:41:42 brain without IV [id number] 23:41:00Interface, External Ris In - 09/05/2019 11:43 [...] Mateo Archer Verif ied Date/Time: 09/05/2019 23:41:42 [facility] HospitalFL, ERCP 2019-08-23 07:25:00Reason for exam:->JaundiceFINAL REPORT A fluoroscopic unit was utilized for a procedure performed in the operating room. No interpretation was requested. Please refer to the operative report regarding findings. Please refer to PACS for patient radiation dose information. Signed: JR Valente Robert MDReport Verified Date/Time: 08/23/2019 07:25:48 Reading Location: [facility] Reading Room ERCP 2019-08-23 07:25:00Interface, External Ris In - 08/23/2019 7:27 AM CSTFINAL REPORT A fluoroscopic unit was utilized for a procedure performed in the operating room. No interpretation was requested. Please refer to the operative report regarding findings. Please refer to PACS for patient radiation dose information. Signed: JR Valente Robert MDReport Verified Date/Time: 08/23/2019 07:25:48 Reading Location: [facility] Radiology Reading Room [facility] HospitalFINE NEEDLE ASPIRATE (FNA) REQUEST 2019-08-21 11:00:00* Test Item Value Reference Range Interpretation Comments Cytology (test code = 2629) See Separate Report [facility] HospitalFIN [facility] ASPIRATE (FNA) [id number] 11:00:00* Test Item Value Reference Range Interpretation Comments CYTOLOGY RESULT POINTER (BEAKER) (test code = 2629) See Separate Re port POCT-GLUCOSE [id number] 12:04:00* Test Item Value Reference Range Interpretation Comments POC-GLUCOSE METER (BEAKER) (test code = 1538) 156 mg/dL 70-110 H : TESTED AT [facility] [address] [facility] [place], [address]: Registered Associate/Shared Services Representative ID = [id number] for LOLA AYALA COMPREHENSIVE METABOLIC [id number] 07:14:00* Test Item Value Reference Range Interpretation [...] GFR IS NOT APPLICABLE FOR DIALYSIS PATIENTS. Registered Associate ID - JOY MSpecimen moderately ictericHEPATIC FUNCTION [id number] 07:14:00* Test Item Value Reference Range Interpretation [...] 347) 32 U/L 6-55 Specimen slightly hemolyzed Registered Associate ID - JOY MSpecimen moderately ictericCBC W/PLT COUNT & AUTO [id number] 05:35:00* Test Item Value Reference Range Interpretation [...] code = 2801) 0 % 0-1 POCT-GLUCOSE [id number] 20:54:00* Test Item Value Reference Range Interpretation Comments POC-GLUCOSE METER (BEAKER) (test code = 1538) 187 mg/dL 70-110 H : TESTED AT [address], [address]: Registered Associate/Shared Services Representative ID = [id number] for BRIANNE PAULINOA POCT-GLUCOSE [id number] 16:46:00* Test Item Value Reference Range Interpretation Comments POC-GLUCOSE METER (BEAKER) (test code = 1538) 111 mg/dL 70-110 H : TESTED AT [address], [address]: Registered Associate/Shared Services Representative ID = [id number] for JAMIE, LOLA POCT-GLUCOSE [id number] 11:47:00* Test Item Value Reference Range Interpretation Comments POC-GLUCOSE METER (BEAKER) (test code = 1538) 112 mg/dL 70-110 H : TESTED AT [address], [address]: Registered Associate/Shared Services Representative ID = [id number] for JAMIE, LOLA POCT-GLUCOSE [id number] 08:15:00* Test Item Value Reference Range Interpretation Comments POC-GLUCOSE METER (BEAKER) (test code = 1538) 133 mg/dL 70-110 H : TESTED AT [facility] [address] [facility] [place] [place], [address]: Registered Associate/Shared Services Representative ID = [id number] for LOLA AYALA COMPREHENSIVE METABOLIC [id number] 06:43:00* Test Item Value Reference Range Interpretation [...] GFR IS NOT APPLICABLE FOR DIALYSIS PATIENTS. Registered Associate ID - JOY MSpecimen moderately ictericCBC W/PLT COUNT & AUTO [id number] 05:37:00* Test Item Value Reference Range Interpretation [...] code = 2801) 0 % 0-1 POCT-GLUCOSE [id number] 20:55:00* Test Item Value Reference Range Interpretation Comments POC-GLUCOSE METER (CECY) (test code = 1538) 189 mg/dL 70-110 H : TESTED AT [facility] [address] [facility], [address]: Registered Associate/Shared Services Representative ID = [id number] for LORENA GARCIA MR, ABDOMEN, [id number] 11:16:00Request MRCP with and without IV contrast FINAL REPORT TECHNIQUE: MRI of the abdomen and MRCP WITHO UT intravenous contrast. 3-D volume reconstructions were obtained to evaluate th e biliary ductal system. INDICATION: Biliary obstruction [id number] yo with michelle vated liver enzymes and [...] MDReport Verified Date/Time: 08/17/2019 11:16:03 Reading Location: [address] Body Reading Room Electronically signed by: MD ben FOX 08/17/2019 11:16 AM MR abdomen without IV contrast [id number] 11:16:00 Interface, External Ris In - 08/17/2019 11:18 AM CSTFINAL REPORT PATIENT ID: [id number] TECHNIQUE: MRI of the abdomen and MRCP WITHOUT intravenous contrast. 3-D volume reconstructions were obtained to evaluate the biliary ductal system. IND ICATION: Biliary obstruction [id number] yo with elevated liver enzymes and ultr [...] Verified Date /Time: 08/17/2019 11:16:03 Reading Location: [facility] B1 C013[facility] Body Reading Room [facility] HospitalPOCT-GLUCOSE [id number] 10:20:00* Test Item Value Reference Range Interpretation Comments POC-GLUCOSE METER (BEAKER) (test code = 1538) 142 mg/dL 70-110 H : TESTED AT [facility] [address] [facility], [address]: Registered Associate/Shared Services Representative ID = [id number] for Lin Mixon COMPREHENSIVE METABOLIC [id number] 05:45:00* Test Item Value Reference Range Interpretation [...] GFR IS NOT APPLICABLE FOR DIALYSIS PATIENTS. Registered Associate ID - PIAYA LSpecimen moderately ictericCBC W/PLT COUNT & AUTO [id number] 04:52:00* Test Item Value Reference Range Interpretation [...] (test code = 2801) 0 % 0-1 [id number] 22:30:00* Test Item Value Reference Range Interpretation [...] patie nts wiht mechanical heart valves.COMPREHENSIVE METABOLIC [id number] 22:30:00* Test Item Value Reference Range Interpretation [...] GFR IS NOT APPLICABLE FOR DIALYSIS PATIENTS. Registered Associate ID - DBSpecimen markedly ictericCBC W/PLT COUNT [...] code = 2801) 1 % 0-1 POCT-GLUCOSE [id number] 21:25:00* Test Item Value Reference Range Interpretation Comments POC-GLUCOSE METER (BEAKER) (test code = 1538) 187 mg/dL 70-110 H : TESTED AT [address], [address]: Registered Associate/Shared Services Representative ID = [id number] for LORENA GARCIA POCT-GLUCOSE [id number] 18:50:00* Test Item Value Reference Range Interpretation Comments POC-GLUCOSE METER (BEAKER) (test code = 1538) 113 mg/dL 70-110 H : TESTED AT [address], [address]: Registered Associate/Shared Services Representative ID = [id number] for WILFREDO ENRIQUE POCT-GLUCOSE [id number] 11:56:00* Test Item Value Reference Range Interpretation Comments POC-GLUCOSE METER (BEAKER) (test code = 1538) 369 mg/dL 70-110 H Notified BRENDA CORTEZ/TESTED AT [address] [address] HEMOGLOBIN [id number] 11:51:00* Test Item Value Reference Range Interpretation Comments HEMOGLOBIN A1C (BEAKER) (test code = 368) 14.8 % 4.3-6.1 H POCT-GLUCOSE [id number] 08:28:00* Test Item Value Reference Range Interpretation Comments POC-GLUCOSE METER (BEAKER) (test code = 1538) 267 mg/dL 70-110 H TESTED AT [address] [address] [id number] 07:24:00* Test Item Value Reference Range Interpretation Comments PHOSPHORUS (BEAKER) (test code = 604) 2.6 mg/dL 2.3-4.7 [id number] 07:24:00* Test Item Value Reference Range Interpretation Comments MAGNESIUM (BEAKER) (test code = 627) 2.0 mg/dL 1.6-2.6 BASIC METABOLIC [id number] 07:24:00* Test Item Value Reference Range Interpretation [...] DIALYSIS PATIENTS. CREATINE KINASE (CK), TOTAL AND [id number] 07:24:00* Test Item Value Reference Range Interpretation Comments CREATINE KINASE TOTAL (BEAKER) (test code = 380) 39 U/L 29-20 0 CREATINE KINASE-MB (BEAKER) (test code = 750) 1.2 ng/mL 0.0-6.6 CREATINE KINASE-MB INDEX (BEAKER) (test code = 395) 3.1 % Effective 05/29/2014: CK-MB Reference Range ChangeNew: 0.0-6.6 Previous: 0.0- 4.9CK-MB Reference Range:<6.7 Normal6.7-10.0 Borderline>10.0 Abnormal TROPONIN [id number] 07:11:00* Test Item Value Reference Range Interpretation [...] acute neurological disease, and pers istent tachyarrhythmia.POCT-GLUCOSE [id number] 21:38:00* Test Item Value Reference Range Interpretation Comments POC-GLUCOSE METER (BEAKER) (test code = 1538) 322 mg/dL 70-110 H Notified BRENDA CORTEZ/TESTED AT [address] [address] POCT-GLUCOSE [id number] 17:17:00* Test Item Value Reference Range Interpretation Comments POC-GLUCOSE METER (BEAKER) (test code = 1538) 266 mg/dL 70-110 H TESTED AT [address] [address] BASIC METABOLIC [id number] 15:42:00* Test Item Value Reference Range Interpretation [...] DIALYSIS PATIENTS. CREATINE KINASE (CK), TOTAL AND [id number] 15:27:00* Test Item Value Reference Range Interpretation Comments CREATINE KINASE TOTAL (BEAKER) (test code = 380) 51 U/L 29-20 0 CREATINE KINASE-MB (BEAKER) (test code = 750) 1.6 ng/mL 0.0-6.6 CREATINE KINASE-MB INDEX (BEAKER) (test code = 395) 3.1 % Effective 05/29/2014: CK-MB Reference Range ChangeNew: 0.0-6.6 Previous: 0.0- 4.9CK-MB Reference Range:<6.7 Normal6.7-10.0 Borderline>10.0 Abnormal TROPONIN [id number] 15:27:00* Test Item Value Reference Range Interpretation [...] pers istent tachyarrhythmia.CBC W/PLT COUNT & AUTO [id number] 14:49:00* Test Item Value Reference Range Interpretation [...] L 0. 00-0.20 0.00URINALYSIS W/ REFLEX URINE [id number] 13:22:00* Test Item Value Reference Range Interpretation [...] /HPF SOURCE(BEAKER) (test code = 2795) POCT-GLUCOSE [id number] 13:02:00* Test Item Value Reference Range Interpretation Comments POC-GLUCOSE METER (BEAKER) (test code = 1538) 367 mg/dL 70-110 H Notified BRENDA CORTEZ/TESTED AT [facility] [address] [facility] [address] URINALYSIS WITHOUT [id number] 09:00:00* Test Item Value Reference Range Interpretation [...] 0.2-1.0 SOURCE(BEAKER) (test code = 2795) POCT-GLUCOSE [id number] 08:09:00* Test Item Value Reference Range Interpretation Comments POC-GLUCOSE METER (BEAKER) (test code = 1538) 375 mg/dL 70-110 H Notified BRENDA CORTEZ/TESTED AT [facility] [address] [facility] [address] POCT-GLUCOSE [id number] 04:30:00* Test Item Value Reference Range Interpretation Comments POC-GLUCOSE METER (BEAKER) (test code = 1538) 410 mg/dL 70-110 HH TESTED AT [address] [address] BASIC METABOLIC [id number] 03:58:00* Test Item Value Reference Range Interpretation [...] NOT APPLICABLE FOR DIALYSIS PATIENTS. BLOOD GAS, [id number] 02:41:00* Test Item Value Reference Range Interpretation [...] code = 1819) 21.0 % BASIC METABOLIC [id number] 02:13:00* Test Item Value Reference Range Interpretation [...] IS NOT APPLICABLE FOR DIALYSIS PATIENTS. TROPONIN [id number] 02:04:00* Test Item Value Reference Range Interpretation [...] acute neurological disease, and pers istent tachyarrhythmia.OSMOLALITY, [id number] 02:01:00* Test Item Value Reference Range Interpretation Comments OSMOLALITY, SERUM (BEAKER) (test code = 615) 312 mOsm/kg 275-295 H [id number] 01:57:00* Test Item Value Reference Range Interpretation Comments MAGNESIUM (BEAKER) (test code = 627) 2.8 mg/dL 1.6-2.6 H Specimen moderately hemolyzed [id number] 01:57:00* Test Item Value Reference Range Interpretation Comments PHOSPHORUS (BEAKER) (test code = 604) 3.0 mg/dL 2.3-4.7 Specimen moderately hemolyzed KETONE, [id number] 01:26:00* Test Item Value Reference Range Interpretation Comments KETONES, BLOOD (BEAKER) (test code = 1103) 0.9 mmol/L <0.4 H CBC W/PLT COUNT & AUTO [id number] 00:52:00* Test Item Value Reference Range Interpretation [...]
[2020-04-12] MEDS ORDERED: SODIUM CHLORIDE 0.9% 1000ML 2,000 ML ONE (22:23)
[2020-04-12 22:37] LABS: BILIRUBIN,URINE SMALL (NEGATIVE); CLARITY,URINE CLEAR (CLEAR); COLOR,URINE YELLOW (YELLOW); KETONES,URINE TRACE (NEGATIVE); LEUKOCYTE ESTERASE ,URINE NEGATIVE (NEGATIVE); NITRITE,URINE NEGATIVE (NEGATIVE); PROTEIN,URINE DIPSTICK NEGATIVE (NEGATIVE); URINE UROBILINOGEN 2 mg/dL (0.2 - 1)
[2020-04-12 22:48] LABS: BACTERIA,URINE FEW /HPF; EPITHELIAL CELLS,URINE FEW /LPF; RBC,URINE 0-5 /HPF (0-5)
[2020-04-12 22:49] LABS: MUCUS,URINE MANY (RARE)
--- NOTE | 2020-04-12 23:03 | Diagnostic Imaging Report ---
EXAM: CT Abdomen and Pelvis WITH contrast INDICATION: Intractable nausea and vomiting COMPARISON: None. TECHNIQUE: Abdomen and pelvis were scanned utilizing a multidetector helical scanner from the lung base to the pubic symphysis after administration of IV contrast. Coronal and sagittal reformations were obtained. Routine protocol was performed. Scan was performed when during portal venous phase. IV CONTRAST: 100 mL of Isovue 370 ORAL CONTRAST: None COMPLICATIONS: None RADIATION DOSE: Total DLP: 743 mGy*cm Estimated effective dose: (DLP x 0.015 x size factor) mSv CTDIvol has been reviewed. It is below the limits set by the Radiation Protocol Committee (RPC). Dose modulation, iterative reconstruction, and/or weight based adjustment of the mA/kV was utilized to reduce the radiation dose to as low as reasonably achievable. FINDINGS: LINES and TUBES: Common bile duct stent, proximal tip at the biliary hepatic bifurcation M distal aspect of the ampulla.. LOWER THORAX: Small right pleural effusion. Mild cardiomegaly. Mitral annular calcifications. HEPATOBILIARY: No focal hepatic lesions. No biliary ductal dilation. Minimal pneumobilia. GALLBLADDER: Small layering calcified gallstone of the gallbladder fundus. No wall thickening. SPLEEN: Mild splenomegaly. Multiple benign calcified granulomata. PANCREAS: An ill-defined 5.2 cm hypodense pancreatic head mass encases the main portal vein and hepatic artery and common bile duct stent. Thin pancreatic body and tail are atrophic with 7 mm duct dilation.. ADRENALS: No adrenal nodules KIDNEYS/URETERS: Kidneys enhance symmetrically. Tiny hypodensity in the right kidney, likely benign. No hydronephrosis. No solid mass lesions. No stones. GI TRACT: Small sliding gastric hiatal hernia with mild distal esophageal wall thickening. No abnormal distention or evidence of bowel obstruction. Appendix is normal. PELVIC ORGANS/BLADDER: Hysterectomy. No adnexal masses. Urinary bladder unremarkable. LYMPH NODES: Slightly prominent subcentimeter celiac lymph nodes, and stranding/encasement of the hepatic artery. VESSELS: Main portal vein encased by a pancreatic head mass. Arterial calcifications. PERITONEUM / RETROPERITONEUM: No free air or fluid. BONES: Mild T12 vertebral body compression fracture, likely chronic.Advanced degenerative changes. Sternotomy wires. Healing right rib 8 fracture. SOFT TISSUES: Benign lower back/gluteal subcutaneous calcified granulomas.. IMPRESSION: 1. A 5.2 cm ill-defined pancreatic head mass encases the main portal vein, hepatic artery, and a common bile duct stent. The biliary duct dilation. Mild local peripancreatic/celiac adenopathy. 2. Small right pleural effusion with right basilar atelectasis. Moderate cardiomegaly and mitral annular calcific disease. 3. Small sliding gastric hiatal hernia with mild distal esophagitis. 4. Splenomegaly, suggestive of portal hypertension. 5. Mild T12 vertebral body compression fracture, likely chronic. Advanced degenerative changes in the spine. Signed by: Marcelo Mendoza DO on 04/12/2020 11:00 PM
--- NOTE | 2020-04-12 23:04 | Diagnostic Imaging Report ---
EXAMINATION: CHEST SINGLE (PORTABLE) INDICATION: Nausea, vomiting, sepsis COMPARISON: Same day abdominal CT. FINDINGS: TUBES and LINES: None. LUNGS/PLEURA: Normal lung volumes. Right lower lung haziness is a small right pleural effusion per same-day CT. No consolidations. No pneumothorax. HEART AND MEDIASTINUM: Cardiac size is mildly enlarged. BONES AND SOFT TISSUES: No acute osseous lesion. Soft tissues are unremarkable. Sternotomy wires. Degenerative changes. UPPER ABDOMEN: No free air under the diaphragm. IMPRESSION: Mild cardiomegaly and pulmonary vascular congestion. Small right pleural effusion. Signed by: Marcelo Mendoza DO on 04/12/2020 11:01 PM
[2020-04-13] VITALS (7 sets, daily range): BP systolic 104–139; BP diastolic 42–61
[2020-04-13] MEDS ORDERED: ACETAMINOPHEN 325 MG TAB PO PRN
--- NOTE | 2020-04-13 01:22 | NUR ---
Received pt via stretcher from ED accompanied by ED staff. Pt awake a/o x3 able to make needs known, denies discomfort at this time, no s/sx of acute distress noted. Bed in low and locked position, call andrade and personal items within reach. Pt orientated to room and policies. Will cont to mon and complete admit.
[2020-04-13] MEDS: SODIUM CHLORIDE 0.9% 1000ML 1,000 ML IV SCH ×3 (02:03→13:30)
[2020-04-13] MEDS ORDERED: INFLUENZA VIRUS VAC SPLIT INJ 0.5 ML SYR IM SCH (03:31)
[2020-04-13 06:46] LABS: BASOPHILS % 0.2 % (0.0-1.0); HEMATOCRIT 35.5 % (34.2-44.1); HEMOGLOBIN 11.4 g/dL (12.0-16.0); LYMPHOCYTES # (AUTO) 0.8 (1.0-3.2); LYMPHOCYTES % 13.8 % (18.0-39.1); MEAN CORPUSCULAR HEMOGLOBIN 30.6 pg (28-32); MEAN CORPUSCULAR HGB CONC 32.1 g/dL (31-35); MEAN CORPUSCULAR VOLUME 95.4 fL (81-99); MONOCYTES # (AUTO) 0.5 (0.2-0.8); MONOCYTES % 7.7 % (4.4-11.3); NEUTROPHILS # (AUTO) 4.6 (2.1-6.9); PLATELET COUNT 80 x10e3/uL (140-360); RED BLOOD COUNT 3.72 x10e6/uL (3.6-5.1)
[2020-04-13] MEDS ORDERED: HYDROCHLOROTHIA25 MG (06:47)
[2020-04-13] MEDS ORDERED: MIRTAZAPINE15 MG PO (06:47)
[2020-04-13] MEDS ORDERED: PANTOPRAZOLE SO40 MG PO (06:47)
[2020-04-13] MEDS ORDERED: ISOSORBIDE MONO30 MG PO (06:47)
[2020-04-13] MEDS ORDERED: METOPROLOL TART25 MG PO (06:47)
[2020-04-13] MEDS ORDERED: ELIQUIS2.5 MG PO (06:47)
[2020-04-13] MEDS ORDERED: LANTUS 3ML100 UNITS/ (06:47)
[2020-04-13] MEDS ORDERED: AMIODARONE HCL100 MG PO (06:47)
[2020-04-13] MEDS ORDERED: HUMALOG100 UNIT/1 SQ (06:47)
[2020-04-13] MEDS ORDERED: OMEGA 3 1,0001 EACH PO (06:47)
[2020-04-13 06:56] LABS: ALBUMIN 2.3 g/dL (3.5-5.0); ALBUMIN/GLOBULIN RATIO 0.8 (0.8-2.0); ANION GAP 12.8 mmol/L (8-16); CALCIUM 7.6 mg/dL (8.4-10.2); CREATININE, SERUM 1.13 mg/dL (0.57-1.11); POTASSIUM 3.8 mmol/L (3.5-5.1)
[2020-04-13 07:14] LABS: CREATINE KINASE MB 0.8 ng/mL (0-5.0)
--- NOTE | 2020-04-13 07:16 | NUR ---
Consult for Dr. Palacios called, attempt made to be placed through to Dr.Amir Hu. Spoke with MD, requested pt to be added to his list.
--- NOTE | 2020-04-13 07:40 | NUR ---
PATIENT IS AWAKE, ALERT, AND IN STABLE CONDITION WITH NO S/S OF RESPIRATORY DISTRESS. NO PAIN VOICED. TELEMETRY APPLIED. IV FLUIDS INFUSING. 02 APPLIED AT 2L NC. BED ALARM APPLIED. CALL LIGHT IS WITHIN REACH, PATIENT INSTRUCTED TO CALL FOR ASSISTANCE NEEDED.
[2020-04-13] MEDS ORDERED: DEXTROSE 50% SYRINGE 50 ML IV PRN (08:15)
[2020-04-13] MEDS: INSULIN LISPRO 100 UNIT/1 ML 3ML VIAL SQ SCH ×3 (08:45→16:30)
--- NOTE | 2020-04-13 11:11 | Consultation ---
DATE OF CONSULTATION: 04/13/2020 REASON FOR CONSULTATION: Pancreatic cancer. HISTORY OF PRESENT ILLNESS: She is a 79-year-old female with a past medical history include pancreatic cancer, status post stent placement, declined any further oncological care. She is currently in the hospital with worsening generalized weakness, nausea, vomiting, fever, and chills. This is her second episode. She had a similar symptom almost 2 weeks back, which was managed conservatively at home. This time, her weakness went worse and she finally decided to come to the hospital for further care. She is currently on hydration, symptomatically doing better. She denies any hematemesis, melena, hematochezia. The vomitus color was dark yellow. PAST MEDICAL HISTORY: Includes: 1. Pancreatic cancer, locally-advanced, nonresectable. 2. Diabetes. ALLERGIES: PENICILLIN. MEDICATIONS: List reviewed. SOCIAL HISTORY: No current smoking, alcohol, or drugs. REVIEW OF SYSTEMS: A 12-point review as per HPI. FAMILY HISTORY: Reviewed, noncontributory. PHYSICAL EXAMINATION: GENERAL: Alert, awake, communicating, not in acute distress. HEENT: Normocephalic and atraumatic. Lips are pink. Conjunctivae clear. NECK: Supple. CHEST: Decreased breath sounds on bases. CARDIOVASCULAR: Regular rate and rhythm. ABDOMEN: Soft and nontender. EXTREMITIES: No clubbing, cyanosis, and edema. LABS/IMAGING: Reviewed. ASSESSMENT AND PLAN: 1. This patient with a history of pancreatic cancer, locally advanced, status post pancreatic stent placement, currently in hospital with nausea, vomiting, generalized weakness, fever, and chills. 2. Pancreatic cancer. 3. Locally-advanced. 4. Status post stent placement. 5. She was discussed in detail with Dr. Giraldo, who was primary oncologist, and patient declined further oncological management include chemo and radiation. 6. She is not a surgical candidate. 7. She is currently on comfort care. RECOMMENDATIONS: 1. Continue current care. 2. Monitor patient closely. 3. Generalized weakness with fever and chills. 4. The patient has pancreatic stent placement. 5. Possibility of infectious etiology. 6. The patient will be followed with primary and ID team for further care. 7. Possibility of foreign body infection. 8. Continue remaining care. 9. We will follow. MD RUBENS Rowe/ABIMAEL /[id number]
[2020-04-13] MEDS ORDERED: INSULIN LISPRO 100 UNIT/1 ML 3ML VIAL SQ SCH (11:30)
[2020-04-13 15:08] LABS: CREATINE KINASE MB 1.3 ng/mL (0-5.0)
--- NOTE | 2020-04-13 15:25 | NUR ---
Nutrition Intervention Note RD Recommendation(s) for Physician: -Continue 1800 ADA diet -Glucerna nutrition supplement BID for added nutrition Plan of Care: RD following, monitoring for tolerance and adequacy Nutrition reason for involvement: Nutrition Risk Trigger RD Assessment (04/13/20) Pt is a 79 year old female admitted with severe sepsis. Pt reports eating <50% of meals for the past week. No weight loss reported and pt mentioned she usually weighs 165 lbs. Pt reports N/V and diarrhea for the past couple of days. No chewing/swallowing issues. Pt was agreeable to a nutrition supplement and usually drinks them at home. Recommend Glucerna BID for added nutrition. Will continue to monitor. Principal Problems/Diagnoses: severe sepsis PMH: Pancreatic cancer, Diabetes. GI: last recorded BM 04/13 Skin: intact Labs: (04/13) Na 142, K 3.8, BUN 16, Cr 1.13, Glu 144, Ca 7.6 Meds: insulin, morphine, zofran Ht: 62 in Wt: 160.31 lbs BMI: 29.3 kg/m2 IBW: 110 lbs Malnutrition Evaluation (04/13/20) The patient does not meet criteria for a specified degree of malnutrition at this time. Will re-evaluate at follow-up as appropriate. Energy intake: <50% of estimated energy requirements for >5 days Weight loss: No weight loss reported Fat loss: no loss identified Muscle loss: no loss identified Supporting Evidence: Fluid accumulation: no edema per MD note Functional Status: not assessed Nutrition Prescription (Diet Order): 1800 ADA Estimated Nutritional Needs: 6362-3119 calories/day (18-20 kcal/kg CBW) 73-109 g protein/day (1-1.5 g pro/kg CBW) Diet Adequacy: Not meeting calorie needs, Not meeting protein needs Tolerance: pt reports N/V Diet Education Needs Assessment: Pt declined the need for diet education Nutrition Care Level: moderate Nutrition Diagnosis: Inadequate energy intake related to decreased ability to consume sufficient energy as evidenced by insufficient energy intake from diet compared to needs. Goal: Patient will meet 75-100% of estimated needs by follow up Progress: N/A Interventions: -carbohydrate- modified diet, Commercial beverage Monitoring/Evaluation: -Total energy intake, Total protein intake, Modified diet, Liquid supplement, Weight change Signed: Lia Baltazar RD, [place]
--- NOTE | 2020-04-13 15:49 | NUR ---
Received social work consult, spoke with the nurse, she said pt appears to have some concerns about her home situation. SW spoke with the pt, she said she is able to live alone, has has good support from her three children however she would like some one to check on her periodically to make sure she is doing ok . SW told her her insurance is not going to pay for it, discussed options, she can get an emergency response system that she can wear around her neck , and use it for emergency to get immediate medical care including calling 911. Otherwise she has to tell her children to check on her periodically since they seemed to be very supportive and caring of the pt, pt agreed to do so, no other concerns.
--- NOTE | 2020-04-13 17:13 | Discharge Summary ---
PRIMARY CARE DOCTOR: Dr. Nilton Kauffman. FINAL DIAGNOSIS: Sepsis present on admission likely due to intermittent cholangitis due to terminal pancreatic cancer with common bile duct stent placed about six months ago. SECONDARY DIAGNOSES: 1. Atrial fibrillation, on Eliquis. 2. Diabetes. 3. Hypertension. FIBER TECHNICIAN: Dr. Walters, Oncology. PROCEDURES/STUDIES PERFORMED: CT, history per dictated H and P. HOSPITAL COURSE: Please see H and P for details. The patient will be discharged today to improve her quality of life. Most likely the patient will be put into hospice when she sees her PCP in a couple of days. CONDITION ON DISCHARGE: Improved. DISCHARGE MEDICATIONS: Please see medication reconciliation form. Yiching MD JOSE MIGUEL Harris/ABIMAEL /[id number] cc: [facility]
[2020-04-13] MEDS ORDERED: LEVOFLOXACIN250 MG PO (18:13)
[2020-04-13] MEDS ORDERED: ZOFRAN4 MG SL (18:14)
--- NOTE | 2020-04-13 18:23 | History and Physical ---
PRIMARY CARE DOCTOR: Dr. Nilton Kauffman. CHIEF COMPLAINT: Nausea and vomiting. HISTORY OF PRESENT ILLNESS: This is a 79-year-old woman with no pancreatic cancer, status post common bile duct stent about 6 months ago. The patient did not want to undergo chemo nor radiation because she wants to preserve her quality of life. The patient does live by herself. I had a long conversation over the phone with her primary care doctor. She was seen by [facility] physician almost two weeks ago and she wanted to talk to her kids before making decision on hospice. The patient stated that about a week ago the patient had nausea and vomiting, however, subsequently she ate some ice chips and it went away, however, for the last day or two she had severe nausea, vomiting, and also some chills. She took her temperature at home and she was afebrile. The patient slept a lot as well. Finally, the patient was brought to the emergency room. After one dose of Zofran the patient's nausea was completely gone. She is tolerating regular food today so far. The patient denies chest pain. No shortness of breath. No cough. No dysuria. PAST MEDICAL/SURGICAL HISTORY: 1. Terminal pancreatic cancer, status post common bile duct stent. 2. Hiatal hernia. 3. Back surgery. 4. Hypertension. 5. Diabetes. 6. Atrial fibrillation, on Eliquis. MEDICATIONS: Please see medication reconciliation form. ALLERGIES: STATINS AND PENICILLIN. SOCIAL HISTORY: Does not smoke. FAMILY HISTORY: No cancer. REVIEW OF SYSTEMS: A 12-point review of system obtained and nothing else is significant other than what is stated in HPI. PHYSICAL EXAMINATION: VITAL SIGNS: Temperature 97.5 and on arrival to the emergency room the patient was 103.3, pulse 58, respiratory rate 16, blood pressure 114/61. GENERAL: No acute distress. SKIN: No rash. HEENT: Sclerae anicteric. Oropharynx is clear. LUNGS: Clear. HEART: Regular rate and rhythm. Normal S1, S2. GI: Abdomen is soft, nondistended, and nontender. NEUROLOGIC: Alert and oriented x3. Cranial nerves II through XII grossly intact. PSYCHIATRIC: No hallucination. MUSCULOSKELETAL: Painless range of motion. LABORATORY DATA: Initial white count was 13 now down to 6, hemoglobin 11.4, platelet count 80. Creatinine was 1.2 now down to 1.13. Total bilirubin was 2.2 now down to 1.0. CT of the abdomen pelvis noted, checks x-ray, no acute significant finding. ASSESSMENT/PLAN: 1. Sepsis present on admission likely due to intermittent cholangitis. The patient responded to Levaquin and Zofran very well, therefore giving her desire for cardia care after speaking to her primary care doctor over the phone for a while we decided the best course is to let her go home right now. I will write prescription for Levaquin and also sublingual Zofran. In a couple days Dr. Kauffman will follow up with her and most likely will proper into hospice. The patient does not have UTI at this time. 2. Atrial fibrillation, rate controlled. We will continue metoprolol and renal dose Eliquis. 3. GI and DVT prophylaxis on Eliquis. 4. Hypertension, stable. Yiching MD JOSE MIGUEL Harris/ABIMAEL /[id number]
[2020-04-13] MEDS ORDERED: INFLUENZA VIRUS VAC SPLIT INJ 0.5 ML SYR IM ONE (18:25)
--- NOTE | 2020-04-13 19:30 | NUR ---
PATIENT DISCHARGE HOME- PATIENT OFF THE UNIT AT 1905 PER WHEELCHAIR ACCOMPANIED BY THE RN TO THE FRONT LOBBY. PATIENT IS IN STABLE CONDITION WITH NO S/S OF RESPIRATORY DISTRESS. NO PAIN VOICED. IV TO RIGHT AC AND RIGHT FOREARM WERE REMOVED WITH TIPS INTACT. DISCHARGE TEACHING, INSTRUCTIONS, AND MEDICATIONS GIVEN TO THE PATIENT. DISCHARGE QUESTIONNAIRE PROVIDED TO PATIENT IN FOLDER. ALL PERSONAL ITEMS WERE TAKEN BY THE PATIENT.
== END 2020-04-13 19:05 | disposition home or self-care (01) | DRG 872 ==
LOC: ER 20:42 → ERHOLD 21:36 → MED/SURG2 04-13 00:07
PROVIDERS: ADMIT Internal Medicine; ATTEND Internal Medicine
DX: A41.9 Sepsis, unspecified organism (principal); C25.9 Malignant neoplasm of pancreas, unspecified; K83.09 Other cholangitis; R65.20 Severe sepsis without septic shock; I48.91 Unspecified atrial fibrillation; K44.9 Diaphragmatic hernia without obstruction or gangrene; I10 Essential (primary) hypertension; E11.9 Type 2 diabetes mellitus without complications; Z96.0 Presence of urogenital implants; Z88.8 Allergy status to other drugs, medicaments and biological substances; Z88.0 Allergy status to penicillin; Z79.01 Long term (current) use of anticoagulants; Z11.59 Encounter for screening for other viral diseases; Z79.4 Long term (current) use of insulin
CPT/HCPCS: 36415; 71045; 74177; 80053; 81001; 82550; 82553; 82948; 83605; 83690; 83880; 84484; 85025; 87040; 93005; 99284; J1885; J2405; J7030; Q9967